=== PATIENT | female | born 1975 | race Caucasian/White ===

== ENCOUNTER → 2016-12-14 09:59 | Outpatient (CLI) | payer MEDICARE ==
[2015-08-15 06:59] VITALS: BMI 49.7
[~2016-12-14 09:59] MED LIST: CARDURA2 MG PO; CELEXA40 MG PO; CLORPRES PO; GLUCOPHAGE500 MG PO; HYDRALAZINE HCL50 MG PO; NEURONTIN 300300 MG PO; NORVASC10 MG PO; OXYCONTIN15 MG; TEKTURNA300 MG PO; ZANAFLEX4 MG PO
--- NOTE | 2016-12-14 14:43 | NUR ---
Nutrition education for bariatric surgery: S: Pt reports she only eats one meal a day; sometimes she does not eat anything during the day. Pt states she eats meat and potatoes with very little nonstarchy vegetables. Pt reports drinking two 12 ounce marina every day; states that she has cut way back on soda. Pt states she needs help with meal planning. Pt states she has been heavy her entire adult life. Pts highest weight was 300#. Pt lowest weight was 270#. Pt states she and her family do not eat out; that fast food is not a problem and she cooks most meals at home. Pt does not get any physical activity during the day. Pt reports she is drinking mostly water. Pts goal is to get HTN under better control and reduce the amount of medication she is on. O: 41 year old female PMH: severe HTN, DMT2, GERD Ht: 5'4" Ht: 280# IBW: 120# +/-10% BMI: 48.1 A: RDN feels pt is not being very truthful with diet recall due to pt not losing any weight. Pt is apparently eating more often or extremely large amounts of food than she is recalling. Pt may also be drinking a lot more soda than she realizes. Reviewed pre/post of diet; liquids between meals; 1/2 cup meal size; dumping syndrome; no straws or carbonated beverages; protein needs; daily supplements; stomach size; no sweets/high fat foods; no alcohol; pouch stretching; reviewed sample menus. Pt with good understanding of information provided; however, I feel pt is just telling me what she thinks I want to hear about her diet at this time. I expressed by concern to pt re: eating more than she is telling me. She does admit that she could be. I advised pt to start measuring and weighing her food; also to start eating at least 3 meals/day. I provided pt with a 5 day sample 1500 calorie a day meal plan to follow. RDN feels pt is not ready to make the necessary lifestyle changes for successful long-term weight loss with bariatric surgery at this time. P: Provided pt with printed pre/post op diet information and RDN name and phone number. RDN will be available if needed. Thank you for the consult.
== END | disposition home or self-care (01) ==
LOC: D.FANS 11-11 10:30
DX: E11.9 Type 2 diabetes mellitus without complications (principal); K21.9 Gastro-esophageal reflux disease without esophagitis; I10 Essential (primary) hypertension; E66.2 Morbid (severe) obesity with alveolar hypoventilation

== ENCOUNTER → 2016-12-29 09:27 | Outpatient (CLI) | payer MEDICARE ==
[2015-08-15 06:59] VITALS: BMI 49.7
[2016-12-29 10:25] LABS: HEMATOCRIT 39.8 % (36.0-48.0); HEMOGLOBIN 12.6 g/dL (12-16); LYMPHOCYTES 16.4 % (15-50); MCH 25.9 pg (26.0-34.0); MCHC 31.7 g/dL (31.0-37.0); MCV 81.9 fL (80.0-100.0); MEAN PLATELET VOLUME 9.4 fL (7.4-10.4); NEUTROPHILS 81.4 % (40-80); PLATELET COUNT 287 10x3/uL (130-400); RBC 4.86 10x6/uL (4.00-5.40); RDW 14.6 % (11.5-14.5); WBC 9.6 10x3/uL (4.8-10.8)
[2016-12-29 10:35] LABS: APTT 25.3 SECONDS (22.8-39.4); INR 0.98 (0.85-1.17); PROTIME 12.8 SECONDS (11.6-15.0)
[2016-12-29 10:51] LABS: ALBUMIN 3.6 g/dL (3.4-5.0); ALKALINE PHOSPHATASE 104 U/L (46-116); ALT (SGPT) 28 U/L (10-68); BILIRUBIN - DIRECT 0.07 mg/dL (0.00-0.30); BILIRUBIN - INDIRECT 0.33 mg/dL (0.00-1.00); CALC OSMOLALITY 276 mosm/kg (275-300); CARBON DIOXIDE 27.3 mmol/L (21.0-32.0); CHLORIDE - SERUM 100 mmol/L (98-107); CHOL - HDL RATIO 3.8 ratio (2.3-4.1); CHOLESTEROL, TOTAL 163 mg/dL (0-200); CREATININE - SERUM 0.7 mg/dL (0.6-1.3); GLUCOSE 177 mg/dL (74-106); HDL CHOLESTEROL 43 mg/dL (32-96); LDL CHOLESTEROL 66 mg/dL (0-100); LDL-HDL RATIO 1.5 ratio (1.5-3.5); POTASSIUM - SERUM 3.7 mmol/L (3.5-5.1); SODIUM 137 mmol/L (136-145); T4 THYROXINE 11.9 ug/dL (4.7-13.3); THYROID STIMULATING HORMONE 0.77 uIU/mL (0.36-3.74); TRIGLYCERIDE 273 mg/dL (30-200); UREA NITROGEN 9 mg/dL (7-18); eGFR NON AFRICAN AMERICAN > 90 mL/min (90-120)
[2016-12-29 11:11] LABS: HELICOBACTER PYLORI IGG POSITIVE (NEGATIVE)
[2016-12-30 09:18] LABS: FOLATE (FOLIC ACID) - SERUM 5.3 ng/mL (>3.0)
[2016-12-30 11:18] LABS: HELICOBACTER PYLORI IGM AB 6.3 units (0.0-8.9)
== END | disposition home or self-care (01) ==
LOC: D.RAD 09:27
PROVIDERS: Surgery
DX: K21.9 Gastro-esophageal reflux disease without esophagitis (principal); E66.2 Morbid (severe) obesity with alveolar hypoventilation

== ENCOUNTER → 2017-01-11 09:39 | Outpatient (CLI) | payer MEDICARE, BC ==
[2015-08-15 06:59] VITALS: BMI 49.7
== END | disposition home or self-care (01) ==
LOC: D.RT 09:39
DX: R06.09 Other forms of dyspnea (principal); J44.9 Chronic obstructive pulmonary disease, unspecified

== ENCOUNTER 2017-01-18 08:17 | Day surgery (SDC) | payer MEDICARE ==
[~2017-01-18] VITALS: Ht 160 cm; Wt 125.5 kg
[~2017-01-18 08:17] MED LIST changes: -OXYCONTIN15 MG; +OXYCONTIN15 MG PO
[2017-01-18] MEDS ORDERED: REQUIP0.5 MG PO (09:41)
[2017-01-18] MEDS ORDERED: PREVACID30 MG PO (09:41)
[2017-01-18 09:45] VITALS: BP 188/118; Ht 160 cm; Wt 125.5 kg
[2017-01-18 10:13] LABS: BASOPHILS 0.1 % (0-2); EOSINOPHILS 0 % (0-7); HEMATOCRIT 38.5 % (36.0-48.0); HEMOGLOBIN 12.1 g/dL (12-16); IMMATURE GRANULOCYTES 0.3 % (0-5); LYMPHOCYTES 21.3 % (15-50); MCH 26.4 pg (26.0-34.0); MCHC 31.4 g/dL (31.0-37.0); MCV 83.9 fL (80.0-100.0); MEAN PLATELET VOLUME 10.5 fL (7.4-10.4); MONOCYTES 4.3 % (2-11); PLATELET COUNT 292 10x3/uL (130-400); RBC 4.59 10x6/uL (4.00-5.40); RDW 14.8 % (11.5-14.5); WBC 7.7 10x3/uL (4.8-10.8)
[2017-01-18 10:29] LABS: CALC OSMOLALITY 281 mosm/kg (275-300); CALCIUM 9.5 mg/dL (8.5-10.1); CHLORIDE - SERUM 100 mmol/L (98-107); CREATININE - SERUM 0.8 mg/dL (0.6-1.3); GLUCOSE 180 mg/dL (74-106); POTASSIUM - SERUM 4.3 mmol/L (3.5-5.1); SODIUM 138 mmol/L (136-145); UREA NITROGEN 14 mg/dL (7-18); eGFR NON AFRICAN AMERICAN 84 mL/min (90-120)
[2017-01-18 12:52] LABS: HCG SERUM NEGATIVE (NEGATIVE)
--- NOTE | 2017-01-18 13:14 | NUR ---
1314--IV DC'D, PT UP TO DRESS AT THIS TIME. GUERLINE RN
--- NOTE | 2017-01-18 13:24 | NUR ---
1325--DISCHARGE INSTRUCTIONS GIVEN, PT VERBALIZES UNDERSTANDING. PT OFF UNIT VIA SHANE. GUERLINE MONTGOMERY
--- NOTE | 2017-01-19 07:23 | OP ---
PATIENT NAME: RAFAEL PETTY MEDICAL RECORD: [id number] :75 LOCATION:D.OPS ADMISSION DATE: SURGEON: COLLEEN STEELE MD DATE OF OPERATION: 01/18/2017 SURGEON: Colleen Steele MD. PREOPERATIVE DIAGNOSES: 1. Morbid obesity. 2. Morbid obesity with alveolar hypoventilation. 3. Chronic obstructive pulmonary disease. 4. Refractory hypertension. 5. Diabetes. POSTOPERATIVE DIAGNOSES: 1. Morbid obesity. 2. Morbid obesity with alveolar hypoventilation. 3. Chronic obstructive pulmonary disease. 4. Refractory hypertension. 5. Diabetes. PROCEDURES PERFORMED: Esophagogastroduodenoscopy. ANESTHESIA: Total intravenous anesthesia. COMPLICATIONS: None. SPECIMENS: 1. Duodenum. 2. Antrum. 3. Stomach. 4. GE junction. Case was contaminated. ESTIMATED BLOOD LOSS: Minimal. OPERATIVE COURSE: After consent was obtained, the patient was taken to the endoscopy suite. Total intravenous anesthesia was given. Timeout was taken to confirm the correct patient and procedure. A bite block was placed. Hurricaine [place] was administered. The patient was placed in the left lateral decubitus position. The scope was inserted through the biteblock. Under direct endoscopic vision, it was passed through the oropharynx and into the esophagus. It was advanced under direct vision to the esophagus and the stomach. The stomach was insufflated. The scope was passed through the pylorus. The duodenum was inspected. Duodenal biopsies were taken. The scope was withdrawn to the antrum. There was mild antritis. Multiple antral biopsies were taken. Stomach body was biopsied. There was some mild gastritis noted. The scope was retroflexed. There was a moderate-sized hiatal hernia. The stomach was desufflated. The scope was placed into GE junction. There were abnormalities at the Z line noted consistent with reflux-type injury as well as again noted a hiatal hernia. Multiple GE junction biopsies were taken. The scope was then withdrawn to the esophagus. There were no esophageal abnormalities identified. The scope was removed. At the end of the procedure, all needle and instrument counts were correct. No complications occurred. The patient tolerated the OPERATIVE REPORT [id number] RAFAEL PETTY procedure well. She was transferred to recovery room in satisfactory condition. TRANSINT:[id number] Voice Confirmation ID: [id number] DOCUMENT ID: [id number] COLLEEN STEELE MD at 0723 CC: [id number] DICTATION DATE: 01/18/17 1159 ICE CREAM VAN VENDOR: 01/18/172042 [facility] 01/18/17 [id number] [place] [address]
== END 2017-01-18 13:25 | disposition home or self-care (01) ==
LOC: D.OPS 08:17
PROVIDERS: Anesthesiology
DX: E66.2 Morbid (severe) obesity with alveolar hypoventilation (principal); J44.9 Chronic obstructive pulmonary disease, unspecified; R06.02 Shortness of breath; I10 Essential (primary) hypertension; E11.9 Type 2 diabetes mellitus without complications; G47.33 Obstructive sleep apnea (adult) (pediatric); I25.10 Atherosclerotic heart disease of native coronary artery without angina pectoris; K21.9 Gastro-esophageal reflux disease without esophagitis; Z01.812 Encounter for preprocedural laboratory examination; Z68.42 Body mass index [BMI] 45.0-49.9, adult

== ENCOUNTER 2017-03-22 05:30 | Inpatient (IN) | payer MEDICARE ==
[2017-03-19 13:08] LABS: HEMATOCRIT 38.7 % (36.0-48.0); HEMOGLOBIN 12.2 g/dL (12-16); MCH 26.6 pg (26.0-34.0); MCHC 31.5 g/dL (31.0-37.0); MCV 84.3 fL (80.0-100.0); MEAN PLATELET VOLUME 9.6 fL (7.4-10.4); RBC 4.59 10x6/uL (4.00-5.40); RDW 14.3 % (11.5-14.5); WBC 7.8 10x3/uL (4.8-10.8)
[2017-03-19 13:18] LABS: ANION GAP 14.9 mmol/L (8-16); CALCIUM 8.7 mg/dL (8.5-10.1); CARBON DIOXIDE 25.1 mmol/L (21.0-32.0); CREATININE - SERUM 1.4 mg/dL (0.6-1.3)
[~2017-03-22] VITALS: Ht 162.6 cm; Wt 126.4 kg
[~2017-03-22 05:30] MED LIST changes: +PERCOCET 10/3251 TA1 PO; +PREVACID30 MG PO; +REQUIP0.5 MG PO
[2017-03-22 05:53] VITALS: BP 182/105; BMI 47.8
[2017-03-22 06:19] LABS: HCG URINE NEGATIVE (NEGATIVE)
[2017-03-22 11:51] VITALS: BP 169/106
[2017-03-22 12:00] VITALS: BP 169/106; Ht 162.6 cm; Wt 126.4 kg
--- NOTE | 2017-03-22 12:13 | NUR ---
PT AOX4 RESP EVEN AND NONLABORED PT DENIES NEED AT THIS TIME IV TO RIGHT FOREARM PATENT AND INTACT AT THIS TIME SRX2 BED AT LOWEST SETTING CALLL LIGHT WITHIN REACH WILL CONTINUE TO MONITOR
[2017-03-22 15:46] VITALS: BP 196/108
--- NOTE | 2017-03-22 19:00 | NUR ---
PATIENT RESTING WITH EYES CLOSED. HOB ALL THE WAY UP. BED IN LOWEST POSITION, CALL LIGHT IN REACH. BED RAILS UP X'S 2. AT BEDSIDE.
[2017-03-22 20:00] VITALS: BP 169/109
--- NOTE | 2017-03-22 21:00 | NUR ---
PATIENT AMBULATED AROUND NURSE STATION ONE LAP.
--- NOTE | 2017-03-22 22:57 | NUR ---
PATIENT CRYING IN PAIN. PATIENT HAS MANUFACTURING PLANT CONTROLLER MORPHINE, KEEPS GETTING MAXED OUT ON THE LIMIT. ENCOURAGED PATIENT TO WALK, PATIENT STATED SHE DOES NOT WANT TO BECAUSE THE PAIN IS TOO BAD. PATIENT STATED SHE IS HOT, BROUGHT PATIENT A FAN. GAVE PATIENT AN ICE PACK TO HOLD ON HER EPIGASTRIC AREA WHERE SHE VERBALIZING PAIN.
--- NOTE | 2017-03-22 23:00 | NUR ---
NO MYLICON DROPS AVAILABLE ON UNIT. CALLED TIA POULTRY HATCHERY LABORER, SHE SAID SHE WILL GET THEM FROM PHARMACY. OFFERED PATIENT TO WALK AGAIN, PATIENT AGAIN REFUSED STATED "IT HURTS TOO BAD." EXPLAINED TO PATIENT AGAIN THAT WALKING HELPS WITH GAS PAIN. PATIENT STILL REFUSED. PATIENT STATED "IT FEELS LIKE I NEED TO BELCH BUT I CANNOT GET IT OUT." PATIENT IS SITTING UP IN THE CHAIR.
[2017-03-23] VITALS: BP 159/98
--- NOTE | 2017-03-23 03:00 | NUR ---
PATIENT IS AMBULATING IN THE TEMPLE WITH HER .
--- NOTE | 2017-03-23 03:53 | NUR ---
PATIENT IS SITTING UP IN CHAIR RESTING QUIETLY WITH EYES CLOSED.
[2017-03-23 04:00] VITALS: BP 181/104
[2017-03-23 05:56] LABS: BASOPHILS 0.1 % (0-2); EOSINOPHILS 0 % (0-7); HEMATOCRIT 34.3 % (36.0-48.0); HEMOGLOBIN 10.5 g/dL (12-16); IMMATURE GRANULOCYTES 0.1 % (0-5); MCH 26.3 pg (26.0-34.0); MCHC 30.6 g/dL (31.0-37.0); MEAN PLATELET VOLUME 9.3 fL (7.4-10.4); MONOCYTES 6.2 % (2-11); NEUTROPHILS 69.6 % (40-80); PLATELET COUNT 303 10x3/uL (130-400); RBC 3.99 10x6/uL (4.00-5.40); RDW 14.6 % (11.5-14.5); WBC 8.2 10x3/uL (4.8-10.8)
[2017-03-23 06:10] LABS: ANION GAP 12.1 mmol/L (8-16); CALCIUM 8.3 mg/dL (8.5-10.1); CREATININE - SERUM 1.1 mg/dL (0.6-1.3); MAGNESIUM - SERUM 1.8 mg/dL (1.8-2.4); POTASSIUM - SERUM 4.1 mmol/L (3.5-5.1)
--- NOTE | 2017-03-23 07:40 | NUR ---
PT AOX4 RESP EVEN AND NONLABORED PT DENIES NEEDS AT THIS TIME IV TO RIGHT WRIST PATENT AND INTACT AT THIS TIME SRX2 BED AT LOWEST SETTINGS THIS TIME CALL LIGHT WITHIN REACH WILL CONTINUE TO MONITOR
--- NOTE | 2017-03-23 10:42 | NUR ---
Patient Name: RAFAEL PETTY Admission Status: Elective Accout number: [id number] Admission Date: 03-22-2017 : 1975 Admission Diagnosis:MORBID (SEVERE) OBESITY DUE TO EXCESS CALORIES Attending: WHITNEY Current LOS: 1 Anticipated DC Date: 03-23-2017 Planned Disposition: Home Primary Insurance: MEDICARE A & B Discharge Planning Comments: CM MET WITH PATIENT AND SPOUSE (LATANYA) REGARDING D/C NEEDS AND PLANS. PATIENT STATED SPOUSE WILL DRIVE HER HOME AT DISCHARGE. PATIENT HAS 1 STEP TO ENTER HOME AT HER MOTHERS AND WILL GO THERE AT DISCHARGE. PATIENT IS INDEPENDENT WITH HER CARE AND HAS A WALKER, SHOWER CHAIR, CANE, AND GLUCOMETER AT HOME. PATIENTS PCP IS DR. ONEIL AND PHARMACY IS [facility] [place]. PATIENT STATED SHE DID NOT NEED HOME HEALTH. CM WILL CONTINUE TO FOLLOW PATIENT WITH D/C NEEDS AND PLANS. PCP DR. ONEIL [facility] [place]- [phone] LATANYA (SPOUSE) [phone] Analyst Competitive Intelligence: Morenita Kaur Is the patient Alert and Oriented? Yes 0 * How many steps to enter\exit or inside your home? 1 STEP 0 * PCP DR. ONEIL 0 * Pharmacy [facility] IN [place] 0 * Preadmission Environment Home with Family 0 * ADLs Independent 0 * Equipment Cane Glucometer Shower Chair Walker 0 * List name and contact numbers for known caregivers / representatives who currently or will assist patient after discharge: LATANYA (SPOUSE) [phone] 0 * Community resources currently utilized None 0 * Additional services required to return to the preadmission environment? Yes 0 * Can the patient safely return to the preadmission environment? Yes 0 * Has this patient been hospitalized within the prior 30 days at any hospital? No 0 Grand Total: 0
[2017-03-23 11:37] VITALS: BP 111/71
--- NOTE | 2017-03-23 12:25 | NUR ---
NUTRITION MONITORING & EVAL CHART REVIEWED, PT VISIT. PT STATES SHE HAS ALL NECESSARY DIET INFORMATION. HAS NO QUESTIONS AT THIS TIME. RD FOLLOWING
--- NOTE | 2017-03-23 19:30 | NUR ---
PATIENT IS IN BED, HOB ALL THE WAY UP. PATIENT IS SITTING AT A 90 DEGREE ANGLE. PATIENT IS RESTING WITH EYES CLOSED. NO SIGNS OF DISTRESS NOTED. IS AT BEDSIDE, HE DENIES NEEDS. BED IS IN LOWEST POSITION, CALL LIGHT IS IN REACH. BED RAILS UP X'S 2.
[2017-03-23 20:00] VITALS: BP 129/71
--- NOTE | 2017-03-23 20:30 | NUR ---
PATIENT IS AMBULATING IN THE TEMPLE WITH HER
[2017-03-24] VITALS: BP 133/70
[2017-03-24 04:00] VITALS: BP 142/68
[2017-03-24 05:15] LABS: BASOPHILS 0.1 % (0-2); EOSINOPHILS 0 % (0-7); HEMATOCRIT 30.7 % (36.0-48.0); HEMOGLOBIN 9.4 g/dL (12-16); IMMATURE GRANULOCYTES 0.3 % (0-5); LYMPHOCYTES 24.1 % (15-50); MCH 26.5 pg (26.0-34.0); MCHC 30.6 g/dL (31.0-37.0); MCV 86.5 fL (80.0-100.0); MEAN PLATELET VOLUME 9.6 fL (7.4-10.4); MONOCYTES 5.9 % (2-11); NEUTROPHILS 69.6 % (40-80); PLATELET COUNT 287 10x3/uL (130-400); RBC 3.55 10x6/uL (4.00-5.40); RDW 14.8 % (11.5-14.5); WBC 7.6 10x3/uL (4.8-10.8)
[2017-03-24 05:40] LABS: ANION GAP 12.2 mmol/L (8-16); CALCIUM 8.1 mg/dL (8.5-10.1); CARBON DIOXIDE 26.7 mmol/L (21.0-32.0); CREATININE - SERUM 0.9 mg/dL (0.6-1.3); MAGNESIUM - SERUM 1.8 mg/dL (1.8-2.4); POTASSIUM - SERUM 3.9 mmol/L (3.5-5.1)
--- NOTE | 2017-03-24 07:40 | NUR ---
PT AOX4 RESP EVEN AND NONLABORED PT DENIES NEEDS AT THIS TIME IV TO RIGHT WRIST PATENT AND INTACT AT THIS TIME SRX2 BED AT LOWEST SETTING CALL LIGHT WITHIN REACH WILL CONTINUE TO MONITOR
[2017-03-24 08:10] VITALS: BP 139/66
[2017-03-24] MEDS ORDERED: OXYCODONE HCL5 MG PO (08:19)
--- NOTE | 2017-03-24 08:27 | NUR ---
CM REASSESSMENT NOTE: PATIENT IS DISCHARGING HOME TODAY/ DRIVING HER. PATIENT REFUSED HOME HEALTH AND HAD NO OTHER NEEDS FOR DISCHARGE.
--- NOTE | 2017-03-24 09:27 | NUR ---
IV DISCONTINUED WITH CATHETER INTACT AT THIS TIME PT GIVEN DISCHARGE INSTRUCTIONS AND PRESCRIPTION AT THIS TIME
--- NOTE | 2017-03-24 10:01 | NUR ---
PT TAKEN VIA WHEELCHAIR VIA PRIVATE VEHICLE AT THIS TIME WITH DISCHARGE PAPERWORK AND PRESCRIPTION
== END 2017-03-24 10:03 | disposition home or self-care (01) | DRG 621 ==
LOC: D.MS 05:30 → D.SDCHOLD 05:30 → D.MS 11:43
PROVIDERS: Anesthesiology; ADMIT Surgery
PROC: 0BQR4ZZ (ICD-10-PCS; 2017-03-22)
PROC: 0DB64Z3 Excision of Stomach, Percutaneous Endoscopic Approach, Vertical (ICD-10-PCS; principal; 2017-03-22 07:30)
PROC: 0BQS4ZZ (ICD-10-PCS; 2017-03-22 07:30)
DX: E66.01 Morbid (severe) obesity due to excess calories (principal); Z68.42 Body mass index [BMI] 45.0-49.9, adult; I10 Essential (primary) hypertension; E11.9 Type 2 diabetes mellitus without complications; G47.30 Sleep apnea, unspecified; J44.9 Chronic obstructive pulmonary disease, unspecified; I25.10 Atherosclerotic heart disease of native coronary artery without angina pectoris; K21.9 Gastro-esophageal reflux disease without esophagitis

== ENCOUNTER → 2017-04-06 14:54 | Outpatient (CLI) | payer MEDICARE ==
[~2017-04-06] VITALS: Ht 162.6 cm; Wt 115.0 kg
[~2017-04-06 14:54] MED LIST changes: +OXYCODONE HCL5 MG PO; +PROAIR HFA8.5 GM INH; +ZOFRAN ODT4 MG/UDTAB PO
[2017-04-06 15:13] LABS: BASOPHILS 0.2 % (0-2); EOSINOPHILS 0 % (0-7); HEMATOCRIT 38.9 % (36.0-48.0); HEMOGLOBIN 12.6 g/dL (12-16); IMMATURE GRANULOCYTES 0.2 % (0-5); LYMPHOCYTES 35.2 % (15-50); MCH 26.8 pg (26.0-34.0); MCHC 32.4 g/dL (31.0-37.0); MCV 82.6 fL (80.0-100.0); MEAN PLATELET VOLUME 10.5 fL (7.4-10.4); MONOCYTES 5.7 % (2-11); NEUTROPHILS 58.7 % (40-80); RBC 4.71 10x6/uL (4.00-5.40); WBC 9.3 10x3/uL (4.8-10.8)
[2017-04-06 15:15] LABS: PLATELET COUNT 367 10x3/uL (130-400)
[2017-04-06 15:44] LABS: ALBUMIN 2.3 g/dL (3.4-5.0); CARBON DIOXIDE 11.7 mmol/L (21.0-32.0)
[2017-04-06 16:00] LABS: ANION GAP 30.3 mmol/L (8-16); BILIRUBIN - TOTAL 0.41 mg/dL (0.2-1.3); CALCIUM 9.2 mg/dL (8.5-10.1); CREATININE - SERUM 1.4 mg/dL (0.6-1.3); PROTEIN - SERUM 8.2 g/dL (6.4-8.2)
--- NOTE | 2017-04-06 16:00 | NUR ---
BLOOD PRESSURE 166/91, PULSE 88, RESPIRATIONS 18, TEMP 98.1
[2017-04-06 16:11] VITALS: BP 166/91; Ht 162.6 cm; Wt 115.0 kg
--- NOTE | 2017-04-06 16:58 | NUR ---
ORDER RECEIVED FROM DR STEELE TO GIVE PATIENT A TOTAL OF 2 LITERS NS IV
--- NOTE | 2017-04-06 17:00 | NUR ---
BP 128/79, PULSE 79, RR 18, O2 SAT 100%, RIGHT FOREARM PIV CONTINUES INFUSING NS BOLUS WITHOUT DIFFICULTY, PATIENT DENIES COMPLAINTS
--- NOTE | 2017-04-06 18:00 | NUR ---
BP 160/106, PULSE 88, RR 18, 02 SAT 99%
--- NOTE | 2017-04-06 19:06 | NUR ---
SECOND NS 1 LITER BAG FINISHED INFUSING. RIGHT FOREARM PIV DC'D WITH TIP INTACT. DISCHARGE INSTRUCTIONS GIVEN, PATIENT DISCHARGED HOME VIA WHEELCHAIR TO PRIVATE VEHICLE WITH FAMILY MEMBERS
== END | disposition home or self-care (01) ==
LOC: D.OPS 14:54
PROVIDERS: Surgery
DX: E86.0 Dehydration (principal)

== ENCOUNTER 2017-04-23 16:14 | Emergency (ER) | payer MEDICARE ==
[2017-04-06 16:11] VITALS: BMI 43.5
[2017-04-23 19:15] LABS: BASOPHILS 0.3 % (0-2); EOSINOPHILS 0.1 % (0-7); HEMATOCRIT 40.6 % (36.0-48.0); HEMOGLOBIN 13.2 g/dL (12-16); IMMATURE GRANULOCYTES 0.1 % (0-5); LYMPHOCYTES 33.8 % (15-50); MCH 26.7 pg (26.0-34.0); MCHC 32.5 g/dL (31.0-37.0); MEAN PLATELET VOLUME 10.3 fL (7.4-10.4); MONOCYTES 4.8 % (2-11); NEUTROPHILS 60.9 % (40-80); RBC 4.95 10x6/uL (4.00-5.40); RDW 14.4 % (11.5-14.5); WBC 7.5 10x3/uL (4.8-10.8)
[2017-04-23 19:19] LABS: PLATELET COUNT 285 10x3/uL (130-400)
[2017-04-23 19:32] LABS: ANION GAP 17.8 mmol/L (8-16); BILIRUBIN - TOTAL 0.4 mg/dL (0.2-1.3); CALCIUM 9.4 mg/dL (8.5-10.1); CREATININE - SERUM 1.1 mg/dL (0.6-1.3); POTASSIUM - SERUM 3.8 mmol/L (3.5-5.1); PROTEIN - SERUM 8.3 g/dL (6.4-8.2)
[2017-04-23 21:46] LABS: APPEARANCE HAZY (CLEAR); BILIRUBIN NEGATIVE (NEGATIVE); COLOR YELLOW (YELLOW); GLUCOSE NEGATIVE (NEGATIVE); KETONE LARGE mg/dL (NEGATIVE); LEUKOCYTE ESTERASE 1+ (NEGATIVE); NITRITE NEGATIVE (NEGATIVE); PROTEIN 1+ mg/dL (NEGATIVE); UROBILINOGEN NORMAL (NORMAL)
[2017-04-23 21:48] LABS: BACTERIA FEW /hpf (NONE SEEN); RED CELLS - URINE OCC /hpf (0-5)
[2017-04-23 21:50] LABS: EPITHELIAL CELLS 25-50 /hpf (0-5)
== END 2017-04-23 21:50 | disposition home or self-care (01) ==
LOC: D.ER 16:14
PROVIDERS: Physician Assistant Medical
DX: R11.10 Vomiting, unspecified (principal); R10.9 Unspecified abdominal pain

== ENCOUNTER 2017-04-28 05:04 | Day surgery (SDC) | payer MEDICARE ==
[~2017-04-28] VITALS: Ht 162.6 cm; Wt 110.0 kg
[2017-04-28 06:49] VITALS: BP 165/122; Ht 162.6 cm; Wt 110.0 kg
[2017-04-28 06:51] LABS: HEMATOCRIT 40.5 % (36.0-48.0); HEMOGLOBIN 13.1 g/dL (12-16); MCH 26.7 pg (26.0-34.0); MCHC 32.3 g/dL (31.0-37.0); MCV 82.7 fL (80.0-100.0); MEAN PLATELET VOLUME 10.9 fL (7.4-10.4); RBC 4.9 10x6/uL (4.00-5.40); RDW 14.7 % (11.5-14.5); WBC 7.3 10x3/uL (4.8-10.8)
[2017-04-28 07:36] LABS: ANION GAP 19.9 mmol/L (8-16); CALCIUM 9.6 mg/dL (8.5-10.1); CARBON DIOXIDE 20.7 mmol/L (21.0-32.0); CREATININE - SERUM 1.2 mg/dL (0.6-1.3); POTASSIUM - SERUM 3.6 mmol/L (3.5-5.1)
[2017-04-28 07:39] LABS: HCG URINE NEGATIVE (NEGATIVE)
--- NOTE | 2017-04-28 15:58 | OP ---
PATIENT NAME: RAFAEL PETTY MEDICAL RECORD: [id number] :75 LOCATION:D.OPS ADMISSION DATE: SURGEON: COLLEEN STEELE MD DATE OF OPERATION: 04/28/2017 SURGEON: Colleen Steele MD PREOPERATIVE DIAGNOSES: 1. Intractable vomiting and retching. 2. History sleeve gastrectomy. POSTOPERATIVE DIAGNOSES: 1. Intractable vomiting and retching. 2. History sleeve gastrectomy. 3. GE junction stricture. ANESTHESIA: Total intravenous anesthesia. SPECIMENS: None. PROCEDURE PERFORMED: EGD with balloon dilatation to 46.5-French____. COMPLICATIONS: None. OPERATIVE COURSE: After consent was obtained, the patient was taken to the endoscopy suite at which time, a timeout was taken to confirm the correct patient and procedure. A bite block was placed. Hurricaine [employer] was administered. Total intravenous anesthesia was administered. The patient was placed in left lateral decubitus position. The gastroscope was inserted through the biteblock. It was passed posterior to the epiglottis under direct endoscopic vision. It was advanced into the esophagus under direct endoscopic vision. There was some difficulty in passing the scope just past the GE junction. Once complete, the scope was advanced into the stomach. The sleeve appeared anatomical in appearance. There are no abnormalities. The stomach identified. The scope was advanced through the stomach. It was advanced to the pylorus into the first portion of duodenum. The pylorus appeared normal. Antrum appeared normal. Duodenum appeared normal. At this time, the scope was withdrawn into the stomach. The scope was withdrawn to the proximal stomach where the area of stricture was noted. A balloon dilator was passed through the working channel on the scope. The balloon was inflated to 40-Sri Lankan and then held in place for 3 minutes. The balloon was then inflated to 43-Sri Lankan, and held in place for 1 minute. The balloon was then inflated to 46-Sri Lankan and held in place for 1 minute. Next, the balloon was deflated and removed. The area of narrowing at this time was markedly improved. The scope was easily traversed across the area of stricture on multiple passes. At this time, the scope was withdrawn to the esophagus. There was no esophageal abnormalities identified. At this time, the scope was removed and the procedure was terminated. At the end of the case, all instrument counts were correct. No complications occurred. The patient was transferred to recovery room in satisfactory condition. TRANSINT:[id number] Voice Confirmation ID: [id number] DOCUMENT ID: [id number] OPERATIVE REPORT [id number] RAFAEL PETTY,COLLEEN Hummel MD at 1558 CC: [id number] DICTATION DATE: 04/28/17 0837 CO FOUNDER: 04/28/17 1105 [facility] 04/28/17 [place] [id number]
== END 2017-04-28 10:51 | disposition home or self-care (01) ==
LOC: D.OPS 05:04
PROVIDERS: Anesthesiology; Surgery
DX: K22.2 Esophageal obstruction (principal); Z98.84 Bariatric surgery status; Z01.812 Encounter for preprocedural laboratory examination

== ENCOUNTER 2017-04-28 13:56 | Emergency (ER) | payer MEDICARE ==
[2017-04-28 06:49] VITALS: BMI 41.6
== END 2017-04-28 16:49 | disposition home or self-care (01) ==
LOC: D.ER 13:56
DX: Z98.890 Other specified postprocedural states (principal); R07.89 Other chest pain; I10 Essential (primary) hypertension; J45.909 Unspecified asthma, uncomplicated; E11.9 Type 2 diabetes mellitus without complications; R11.2 Nausea with vomiting, unspecified

== ENCOUNTER → 2017-05-13 10:19 | Outpatient (CLI) | payer MEDICARE ==
[2017-04-28 06:49] VITALS: BMI 41.6
== END | disposition home or self-care (01) ==
LOC: D.RAD 10:00
DX: R13.10 Dysphagia, unspecified (principal); G43.A1 Cyclical vomiting, in migraine, intractable

== ENCOUNTER 2017-05-14 07:41 | Day surgery (SDC) | payer MEDICARE ==
[~2017-05-14] VITALS: Ht 162.6 cm; Wt 113.2 kg
[2017-05-14 08:22] LABS: BASOPHILS 0.2 % (0-2); EOSINOPHILS 0.1 % (0-7); HEMATOCRIT 44.2 % (36.0-48.0); HEMOGLOBIN 14.6 g/dL (12-16); IMMATURE GRANULOCYTES 0.2 % (0-5); LYMPHOCYTES 24.7 % (15-50); MCH 27.4 pg (26.0-34.0); MCV 83.1 fL (80.0-100.0); MEAN PLATELET VOLUME 11.1 fL (7.4-10.4); MONOCYTES 5.9 % (2-11); NEUTROPHILS 68.9 % (40-80); RBC 5.32 10x6/uL (4.00-5.40); RDW 15.4 % (11.5-14.5); WBC 10.5 10x3/uL (4.8-10.8)
[2017-05-14 08:23] LABS: PLATELET COUNT 321 10x3/uL (130-400)
[2017-05-14 08:30] LABS: ANION GAP 18.2 mmol/L (8-16); CALCIUM 9.7 mg/dL (8.5-10.1); CARBON DIOXIDE 23.3 mmol/L (21.0-32.0); CREATININE - SERUM 1.1 mg/dL (0.6-1.3); POTASSIUM - SERUM 3.5 mmol/L (3.5-5.1)
[2017-05-14 09:38] VITALS: BP 116/95; Ht 162.6 cm; Wt 113.2 kg
[2017-05-14 09:47] LABS: HCG URINE NEGATIVE (NEGATIVE)
--- NOTE | 2017-05-14 12:15 | NUR ---
DILATED ESOPHAGUS TO 18 GUAMANIAN.
--- NOTE | 2017-05-14 15:47 | NUR ---
1335 IV DC WITH CATHER TIP INTACT
--- NOTE | 2017-05-15 10:43 | OP ---
PATIENT NAME: RAFAEL PETTY MEDICAL RECORD: [id number] :75 LOCATION:D.[facility] ADMISSION DATE: SURGEON: COLLEEN STEELE MD DATE OF OPERATION: 05/14/2017 SURGEON: Colleen Steele MD PREOPERATIVE DIAGNOSES: 1. Dysphagia. 2. Intractable nausea and vomiting. 3. History of bariatric procedure. POSTOPERATIVE DIAGNOSES: 1. Dysphagia. 2. Intractable nausea and vomiting. 3. History of bariatric procedure. PROCEDURE PERFORMED: Esophagogastroduodenoscopy with balloon dilatation to 54-Lao. ANESTHESIA: Total intravenous anesthesia. COMPLICATIONS: None. SPECIMENS: None. ESTIMATED BLOOD LOSS: Minimal. Case was contaminated. OPERATIVE COURSE: After consent was obtained, the patient was taken to the operating room and placed in the supine position on the operating table. Next, a timeout was taken to confirm correct patient, procedure, total intravenous anesthesia was given. A bite block was placed tourniquet was administered. The patient was placed in left lateral decubitus position. At this time, the endoscope was passed through the oropharynx and under direct endoscopic vision, it was advanced through the esophagus through the gastroesophageal junction and into the stomach and was advanced at the stomach. The pylorus was intubated. The duodenum was inspected. The pylorus was then dilated to 54-Lao and held in place for 2 minutes. The balloon was deflated. The balloon was reinflated and the balloon was then repositioned to the upper portion of the stomach. Again, the balloon was inflated to 54-Lao, and held in place for 2 minutes. The balloon was then deflated. It was repositioned across the GE junction and was inflated to 54-Lao and held in place for 2 minutes. Next, the balloon was then removed through the working channel on the scope. The scope was then again advanced across the GE junction into the stomach. There was no strictured area or stricture noted. There was no area of bleeding noted. The scope was advanced to the pylorus. At this time, the duodenum was desufflated and the scope was slowly withdrawn and the stomach was desufflated. The esophagus was evaluated. There was no evidence of esophageal injury. There is no esophageal masses. At this time, the esophagus was desufflated. The scope was removed and the procedure was terminated. At the end of the case, all needle and instrument counts were correct. No complications occurred. The patient was returned to recovery room in satisfactory condition. OPERATIVE REPORT [id number] RAFAEL PETTY MARICEL TRANSINT:[id number] Voice Confirmation ID: [id number] DOCUMENT ID: [id number] COLLEEN STEELE MD at 1043 CC: [id number] DICTATION DATE: 05/14/17 1236 CIVIL ENGINEER: 05/14/17 1543 [facility] 05/14/17 [place] [id number]
== END 2017-05-14 14:05 | disposition home or self-care (01) ==
LOC: D.OPS 07:41
PROVIDERS: Anesthesiology; Surgery
DX: R13.10 Dysphagia, unspecified (principal); J45.909 Unspecified asthma, uncomplicated; I10 Essential (primary) hypertension; E11.9 Type 2 diabetes mellitus without complications; R11.2 Nausea with vomiting, unspecified; K21.9 Gastro-esophageal reflux disease without esophagitis; E66.01 Morbid (severe) obesity due to excess calories; Z68.41 Body mass index [BMI] 40.0-44.9, adult; Z01.812 Encounter for preprocedural laboratory examination

== ENCOUNTER 2017-05-18 10:53 | Inpatient (IN) | payer MEDICARE ==
[~2017-05-18] VITALS: Ht 162.6 cm; Wt 102.5 kg
[2017-05-18 11:45] LABS: ALBUMIN 3.7 g/dL (3.4-5.0); ANION GAP 18.1 mmol/L (8-16); BILIRUBIN - TOTAL 0.45 mg/dL (0.2-1.3); CALCIUM 9.2 mg/dL (8.5-10.1); CARBON DIOXIDE 23.7 mmol/L (21.0-32.0); CREATININE - SERUM 0.9 mg/dL (0.6-1.3); POTASSIUM - SERUM 3.8 mmol/L (3.5-5.1); PROTEIN - SERUM 7.8 g/dL (6.4-8.2)
[2017-05-18 11:46] LABS: BASOPHILS 0.4 % (0-2); EOSINOPHILS 0.1 % (0-7); HEMATOCRIT 41.5 % (36.0-48.0); HEMOGLOBIN 13.7 g/dL (12-16); IMMATURE GRANULOCYTES 0.1 % (0-5); LYMPHOCYTES 26.4 % (15-50); MCH 27.1 pg (26.0-34.0); MCV 82.2 fL (80.0-100.0); MEAN PLATELET VOLUME 11.2 fL (7.4-10.4); MONOCYTES 5.1 % (2-11); NEUTROPHILS 67.9 % (40-80); PLATELET COUNT 284 10x3/uL (130-400); RBC 5.05 10x6/uL (4.00-5.40); RDW 15.4 % (11.5-14.5)
[2017-05-18 16:08] VITALS: BP 162/110; BMI 38.9
[2017-05-18 20:00] VITALS: BP 137/92
[2017-05-18 20:33] VITALS: BP 162/110
[2017-05-19] VITALS (7 sets, daily range): BP systolic 140–173; BP diastolic 83–110; Ht 162.6 cm; Wt 102.5 kg
[2017-05-19 06:34] LABS: ANION GAP 16.6 mmol/L (8-16); CALCIUM 9.3 mg/dL (8.5-10.1); CARBON DIOXIDE 25.1 mmol/L (21.0-32.0); CREATININE - SERUM 0.9 mg/dL (0.6-1.3); POTASSIUM - SERUM 3.7 mmol/L (3.5-5.1)
[2017-05-19 17:11] LABS: APPEARANCE HAZY (CLEAR); BILIRUBIN NEGATIVE (NEGATIVE); COLOR DK YELLOW (YELLOW); GLUCOSE NEGATIVE (NEGATIVE); KETONE MODERATE mg/dL (NEGATIVE); LEUKOCYTE ESTERASE 1+ (NEGATIVE); NITRITE NEGATIVE (NEGATIVE); PROTEIN TRACE mg/dL (NEGATIVE); UROBILINOGEN NORMAL (NORMAL)
[2017-05-19 17:12] LABS: BACTERIA MODERATE /hpf (NONE SEEN); EPITHELIAL CELLS 0-5 /hpf (0-5); RED CELLS - URINE 0-5 /hpf (0-5)
[2017-05-20 02:34] VITALS: BP 161/98
[2017-05-20 06:09] LABS: CALC OSMOLALITY 284 mosm/kg (275-300); CALCIUM 9.2 mg/dL (8.5-10.1); CARBON DIOXIDE 26.2 mmol/L (21.0-32.0); CHLORIDE - SERUM 106 mmol/L (98-107); CREATININE - SERUM 0.8 mg/dL (0.6-1.3); GLUCOSE 132 mg/dL (74-106); POTASSIUM - SERUM 3.4 mmol/L (3.5-5.1); SODIUM 142 mmol/L (136-145); eGFR NON AFRICAN AMERICAN 83 mL/min (90-120)
[2017-05-20 06:15] LABS: UREA NITROGEN 12 mg/dL (7-18)
[2017-05-20 09:39] VITALS: BP 141/88
[2017-05-20 12:57] VITALS: BP 141/86
[2017-05-20 16:30] VITALS: BP 129/79
[2017-05-20 20:00] VITALS: BP 177/102
[2017-05-21] VITALS: BP 135/85
[2017-05-21 04:00] VITALS: BP 142/82
[2017-05-21 06:43] LABS: CALC OSMOLALITY 275 mosm/kg (275-300); CALCIUM 8.9 mg/dL (8.5-10.1); CARBON DIOXIDE 29.2 mmol/L (21.0-32.0); CHLORIDE - SERUM 105 mmol/L (98-107); CREATININE - SERUM 0.7 mg/dL (0.6-1.3); GLUCOSE 101 mg/dL (74-106); POTASSIUM - SERUM 3.5 mmol/L (3.5-5.1); SODIUM 139 mmol/L (136-145); eGFR NON AFRICAN AMERICAN > 90 mL/min (90-120)
[2017-05-21 06:47] LABS: UREA NITROGEN 6 mg/dL (7-18)
[2017-05-21] MEDS ORDERED: BACLOFEN10 MG PO (08:01)
[2017-05-21] MEDS ORDERED: PROTONIX40 MG PO (08:04)
[2017-05-21] MEDS ORDERED: PEPCID40 MG PO (08:05)
[2017-05-21] MEDS ORDERED: GAVISCON LIQUI355 ML PO (08:05)
[2017-05-21 09:31] VITALS: BP 144/91
== END 2017-05-21 10:56 | disposition home or self-care (01) | DRG 392 ==
LOC: D.ER 10:53 → D.MS 15:39
PROVIDERS: Family Medicine; ADMIT Surgery
PROC: 02HV33Z Insertion of Infusion Device into Superior Vena Cava, Percutaneous Approach (ICD-10-PCS; principal; 2017-05-19)
PROC: B548ZZA Ultrasonography of Superior Vena Cava, Guidance (ICD-10-PCS; 2017-05-19)
DX: K21.9 Gastro-esophageal reflux disease without esophagitis (principal); E11.9 Type 2 diabetes mellitus without complications; I10 Essential (primary) hypertension; J44.9 Chronic obstructive pulmonary disease, unspecified; E66.01 Morbid (severe) obesity due to excess calories; Z68.38 Body mass index [BMI] 38.0-38.9, adult; Z98.84 Bariatric surgery status

== ENCOUNTER 2017-05-24 14:44 | Emergency (ER) | payer MEDICARE ==
[2017-05-19 14:57] VITALS: BMI 38.8
[~2017-05-24 14:44] MED LIST changes: +BACLOFEN10 MG PO; +GAVISCON LIQUI355 ML PO; +PEPCID40 MG PO; +PROTONIX40 MG PO
[2017-05-24 15:53] LABS: ALBUMIN 3.9 g/dL (3.4-5.0); ANION GAP 17.1 mmol/L (8-16); BILIRUBIN - TOTAL 0.7 mg/dL (0.2-1.3); CALCIUM 9.3 mg/dL (8.5-10.1); CARBON DIOXIDE 25.3 mmol/L (21.0-32.0); CREATININE - SERUM 1.2 mg/dL (0.6-1.3); POTASSIUM - SERUM 4.4 mmol/L (3.5-5.1); PROTEIN - SERUM 7.1 g/dL (6.4-8.2)
[2017-05-24 17:12] LABS: BASOPHILS 0.1 % (0-2); EOSINOPHILS 0.1 % (0-7); HEMATOCRIT 39.3 % (36.0-48.0); HEMOGLOBIN 12.9 g/dL (12-16); IMMATURE GRANULOCYTES 0.3 % (0-5); LYMPHOCYTES 29.7 % (15-50); MCHC 32.8 g/dL (31.0-37.0); MCV 82.4 fL (80.0-100.0); MEAN PLATELET VOLUME 11.8 fL (7.4-10.4); MONOCYTES 7.4 % (2-11); NEUTROPHILS 62.4 % (40-80); PLATELET COUNT 283 10x3/uL (130-400); RBC 4.77 10x6/uL (4.00-5.40); RDW 15.5 % (11.5-14.5); WBC 7.5 10x3/uL (4.8-10.8)
[2017-05-24 17:40] LABS: APPEARANCE CLEAR (CLEAR); COLOR DK YELLOW (YELLOW); GLUCOSE NEGATIVE (NEGATIVE); LEUKOCYTE ESTERASE 1+ (NEGATIVE); NITRITE NEGATIVE (NEGATIVE); PROTEIN NEGATIVE (NEGATIVE)
[2017-05-24 17:41] LABS: BILIRUBIN NEGATIVE (NEGATIVE); KETONE LARGE mg/dL (NEGATIVE); UROBILINOGEN NORMAL (NORMAL)
[2017-05-24 17:42] LABS: BACTERIA FEW /hpf (NONE SEEN); RED CELLS - URINE RARE /hpf (0-5)
== END 2017-05-24 18:12 | disposition home or self-care (01) ==
LOC: D.ER 14:44
PROVIDERS: Nurse Practitioner Family
DX: K29.00 Acute gastritis without bleeding (principal); R11.10 Vomiting, unspecified; I10 Essential (primary) hypertension; E11.9 Type 2 diabetes mellitus without complications

== ENCOUNTER 2017-06-15 17:56 | Emergency (ER) | payer MEDICARE ==
[2017-05-19 14:57] VITALS: BMI 38.8
[2017-06-15 21:12] LABS: BASOPHILS 0.2 % (0-2); EOSINOPHILS 0.1 % (0-7); HEMATOCRIT 43.1 % (36.0-48.0); HEMOGLOBIN 14.4 g/dL (12-16); IMMATURE GRANULOCYTES 0.3 % (0-5); LYMPHOCYTES 35.9 % (15-50); MCH 27.1 pg (26.0-34.0); MCHC 33.4 g/dL (31.0-37.0); MCV 81.2 fL (80.0-100.0); MEAN PLATELET VOLUME 11.5 fL (7.4-10.4); MONOCYTES 7.1 % (2-11); NEUTROPHILS 56.4 % (40-80); PLATELET COUNT 244 10x3/uL (130-400); RBC 5.31 10x6/uL (4.00-5.40); RDW 15.7 % (11.5-14.5); WBC 9.4 10x3/uL (4.8-10.8)
[2017-06-15 21:27] LABS: ALBUMIN 4.3 g/dL (3.4-5.0); ANION GAP 14.7 mmol/L (8-16); BILIRUBIN - TOTAL 0.5 mg/dL (0.2-1.3); CALCIUM 9.8 mg/dL (8.5-10.1); CREATININE - SERUM 1.3 mg/dL (0.6-1.3); POTASSIUM - SERUM 3.7 mmol/L (3.5-5.1); PROTEIN - SERUM 7.6 g/dL (6.4-8.2); TROPONIN-I 0.037 ng/mL (0.000-0.060)
[2017-06-15 22:56] LABS: APPEARANCE HAZY (CLEAR); BILIRUBIN NEGATIVE (NEGATIVE); COLOR DK YELLOW (YELLOW); GLUCOSE NEGATIVE (NEGATIVE); KETONE NEGATIVE (NEGATIVE); NITRITE NEGATIVE (NEGATIVE); PROTEIN TRACE mg/dL (NEGATIVE); UROBILINOGEN NORMAL (NORMAL)
[2017-06-15 22:57] LABS: BACTERIA MANY /hpf (NONE SEEN); RED CELLS - URINE 0-5 /hpf (0-5); WHITE CELLS - URINE >50 /hpf (0-5)
== END 2017-06-15 23:54 | disposition home or self-care (01) ==
LOC: D.ER 17:56
PROVIDERS: Physician Assistant Medical
DX: N39.0 Urinary tract infection, site not specified (principal); R10.9 Unspecified abdominal pain; I10 Essential (primary) hypertension; E11.9 Type 2 diabetes mellitus without complications

== ENCOUNTER 2017-06-16 16:31 | Emergency (ER) | payer MEDICARE ==
[2017-05-19 14:57] VITALS: BMI 38.8
[2017-06-16 16:53] LABS: BASOPHILS 0.2 % (0-2); EOSINOPHILS 0.1 % (0-7); HEMATOCRIT 39.1 % (36.0-48.0); IMMATURE GRANULOCYTES 0.3 % (0-5); LYMPHOCYTES 27.8 % (15-50); MCH 27.1 pg (26.0-34.0); MCHC 33.2 g/dL (31.0-37.0); MCV 81.6 fL (80.0-100.0); MEAN PLATELET VOLUME 11.3 fL (7.4-10.4); MONOCYTES 7.2 % (2-11); NEUTROPHILS 64.4 % (40-80); PLATELET COUNT 251 10x3/uL (130-400); RBC 4.79 10x6/uL (4.00-5.40); RDW 15.9 % (11.5-14.5); WBC 9.3 10x3/uL (4.8-10.8)
[2017-06-16 17:20] LABS: ALBUMIN 3.9 g/dL (3.4-5.0); ANION GAP 18.6 mmol/L (8-16); BILIRUBIN - TOTAL 0.3 mg/dL (0.2-1.3); CALCIUM 9.3 mg/dL (8.5-10.1); CARBON DIOXIDE 19.5 mmol/L (21.0-32.0); CREATININE - SERUM 1.6 mg/dL (0.6-1.3); PROTEIN - SERUM 7.2 g/dL (6.4-8.2)
[2017-06-16 17:23] LABS: POTASSIUM - SERUM 3.1 mmol/L (3.5-5.1)
== END 2017-06-16 21:23 | disposition home or self-care (01) ==
LOC: D.ER 16:31
PROVIDERS: Emergency Medicine
DX: R55 Syncope and collapse (principal); E86.0 Dehydration; R00.0 Tachycardia, unspecified

== ENCOUNTER → 2017-06-18 15:35 | Outpatient (CLI) | payer MEDICARE ==
[2017-05-19 14:57] VITALS: BMI 38.8
[~2017-06-18 15:35] MED LIST changes: +FLORAJEN3 CAPS460 MG PO; +GLUCAGEN1 MG/VIAL IM; +GLUCAGEN1 MG/VIAL SC; +HUMALOG 30100 UNITS/ SC; +HYDROCODON-ACE1 EAC7 PO; +LOVENOX30 MG/0.3 SC; +MULTI-DAY VITAM1 TAB PO; +OXYCODONE HCL10 MG PO; +PHENERGAN25 MG/ML IM; +ROCEPHIN 1 GM/D51 G1 IV; +SOLU-CORTE100 MG/22 IV; +TEKTURNA150 MG PO; +ULTRAM50 MG PO
== END | disposition home or self-care (01) ==
LOC: D.MRI 15:35
DX: R51 Headache (principal); H53.9 Unspecified visual disturbance

== ENCOUNTER 2017-06-21 13:53 | Inpatient (IN) | payer MEDICARE ==
[~2017-06-21 13:53] MED LIST changes: -FLORAJEN3 CAPS460 MG PO; -GLUCAGEN1 MG/VIAL IM; -GLUCAGEN1 MG/VIAL SC; -HUMALOG 30100 UNITS/ SC; -HYDROCODON-ACE1 EAC7 PO; -LOVENOX30 MG/0.3 SC; -MULTI-DAY VITAM1 TAB PO; -OXYCODONE HCL10 MG PO; -PHENERGAN25 MG/ML IM; -ROCEPHIN 1 GM/D51 G1 IV; -SOLU-CORTE100 MG/22 IV; -TEKTURNA150 MG PO; -ULTRAM50 MG PO
--- NOTE | 2017-06-21 14:00 | NUR ---
PT ARRIVED TO FLOOR WITH HOSPITAL STAFF.
[2017-06-21 14:17] VITALS: BP 200/125; BMI 35.4
--- NOTE | 2017-06-21 14:30 | NUR ---
ADMISSION ASSESSMENT COMPLETE AT THIS TIME.
[2017-06-21 14:59] LABS: BASOPHILS 0.3 % (0-2); EOSINOPHILS 0.1 % (0-7); HEMATOCRIT 38.3 % (36.0-48.0); HEMOGLOBIN 12.8 g/dL (12-16); IMMATURE GRANULOCYTES 0.3 % (0-5); LYMPHOCYTES 17.6 % (15-50); MCH 27.2 pg (26.0-34.0); MCHC 33.4 g/dL (31.0-37.0); MCV 81.5 fL (80.0-100.0); MEAN PLATELET VOLUME 10.9 fL (7.4-10.4); MONOCYTES 3.9 % (2-11); NEUTROPHILS 77.8 % (40-80); PLATELET COUNT 273 10x3/uL (130-400); RDW 16.3 % (11.5-14.5)
[2017-06-21 15:35] LABS: ALBUMIN 3.8 g/dL (3.4-5.0); ANION GAP 19.6 mmol/L (8-16); BILIRUBIN - TOTAL 0.43 mg/dL (0.2-1.3); CALCIUM 9.5 mg/dL (8.5-10.1); CARBON DIOXIDE 19.8 mmol/L (21.0-32.0); CREATININE - SERUM 1.5 mg/dL (0.6-1.3); MAGNESIUM - SERUM 1.8 mg/dL (1.8-2.4); POTASSIUM - SERUM 3.4 mmol/L (3.5-5.1); PROTEIN - SERUM 7.3 g/dL (6.4-8.2); THYROID STIMULATING HORMONE 0.82 uIU/mL (0.36-3.74)
[2017-06-21 17:31] VITALS: BP 164/118
[2017-06-21 20:00] VITALS: BP 165/103
--- NOTE | 2017-06-21 20:00 | NUR ---
ASSESSMENT PER FLOWSHEET. NEURO ASSESSMENT DONE SHOWS BILATERAL WEAKNESS. KIMBALL EQUAL IN STRENGTH. SPEECH CLEAR AND APPROPRIATE. IV PATENT LEFT HAND OF NS BOLUS GOING AT 999CC'S/HR.
--- NOTE | 2017-06-21 20:15 | NUR ---
BOLUS COMPLETED D5NS HUNG TO PRESENT IV SITE INFUSING AT 125CC'S/HR.
--- NOTE | 2017-06-21 21:30 | NUR ---
MEDS GIVEN PER MAR. APFL=133 NO COVERAGE NEEDED.
--- NOTE | 2017-06-21 22:00 | NUR ---
DR. STEELE HERE ORDERS REC'D. 1000CC'SLR HUNG A BOLUS INFUSING AT 999CC'S/HR. UP WITH HELP TO BR VOIDS ON COMMODE. ASSISTED BACK TO BED SR UP X2 CALL LIGHT WITHIN REACH.
[2017-06-22] VITALS: BP 174/105
--- NOTE | 2017-06-22 | NUR ---
EYES CLOSED RESPIRATIONS WITH EASE AND UNLABORED.
--- NOTE | 2017-06-22 01:50 | NUR ---
OMAR RN HERE TO PULL PROCALAMINE SOLUTION. PROCALAMINE HUNG ORDERED TO RUN AT 125CC'S/HR
[2017-06-22 04:00] VITALS: BP 190/119
--- NOTE | 2017-06-22 04:51 | NUR ---
C/O PAIN IN LEGS AND B/P=190/119. OXY IR 5MG PO GIVEN FOR LEG PAIN. CATAPRES 0.1MG PO GIVEN FOR ELEVATED B/P.
[2017-06-22 05:45] LABS: BASOPHILS 0.2 % (0-2); EOSINOPHILS 0 % (0-7); HEMATOCRIT 31.7 % (36.0-48.0); HEMOGLOBIN 10.7 g/dL (12-16); IMMATURE GRANULOCYTES 0.2 % (0-5); LYMPHOCYTES 29.9 % (15-50); MCH 27.3 pg (26.0-34.0); MCHC 33.8 g/dL (31.0-37.0); MCV 80.9 fL (80.0-100.0); MEAN PLATELET VOLUME 10.7 fL (7.4-10.4); NEUTROPHILS 60.7 % (40-80); PLATELET COUNT 241 10x3/uL (130-400); RBC 3.92 10x6/uL (4.00-5.40); RDW 16.5 % (11.5-14.5)
[2017-06-22 05:51] LABS: ALBUMIN 2.9 g/dL (3.4-5.0); ANION GAP 14.4 mmol/L (8-16); BILIRUBIN - TOTAL 0.38 mg/dL (0.2-1.3); CALCIUM 8.7 mg/dL (8.5-10.1); CARBON DIOXIDE 19.7 mmol/L (21.0-32.0); POTASSIUM - SERUM 3.1 mmol/L (3.5-5.1); PROTEIN - SERUM 6.1 g/dL (6.4-8.2)
[2017-06-22 06:00] LABS: WBC 4.4 10x3/uL (4.8-10.8)
[2017-06-22 06:10] LABS: CREATININE - SERUM 0.9 mg/dL (0.6-1.3)
--- NOTE | 2017-06-22 06:36 | NUR ---
K+ RESULTS=3.1. K+ 40MEQ PO GIVEN PER Mallory OLIVER.
--- NOTE | 2017-06-22 07:15 | NUR ---
REPORT RECEIVED FROM MELTER CASTER NURSE. CALL LIGHT IN REACH.
[2017-06-22 08:30] VITALS: BP 154/100
[2017-06-22 08:51] LABS: APTT 26.6 SECONDS (22.8-39.4); INR 1.11 (0.85-1.17); PROTIME 14.2 SECONDS (11.6-15.0)
--- NOTE | 2017-06-22 09:47 | NUR ---
ASSESSMENT COMPLETED. NORVASC AND CELEXA PO WITH SIP OF WATER. SECOND IV SITED TO LEFT AC WITH 20 GA X1 STICK FOR CTA. FOLIC ACID INFUSING IN IT AT THIS TIME. EXPLAINED AND OFFERED SCDs BUT PATIENT REFUSES. BED ALARM TURNED ON D/T FALL SCORE. PASSWORD OBTAINED AND PLACED IN COMPUTER. IN ROOM. CALL LIGHT IN REACH. WILL CONTINUE WITH PLAN OF CARE.
--- NOTE | 2017-06-22 09:53 | NUR ---
STATES SHE HAS NOT BEING VOIDING. 400 CC OF URINE WAS NOTED IN BSC. INFORMED PATIENT OF THIS AND SHE SAID "OH, I MUST HAVE BEEN PEEING MORE THAN WHAT I THOUGHT." [place] HAT PLACED IN BSC FOR MEASUREMENT OF URINE AND STERILE CUP GIVEN TO PATIENT FOR URINE SPECIMEN.
--- NOTE | 2017-06-22 11:16 | NUR ---
OXY IR PO PER C/O PAIN OF 7 IN ABDOMEN.
[2017-06-22 11:39] VITALS: BP 134/80
--- NOTE | 2017-06-22 12:01 | NUR ---
CONSENT FOR LUMBAT PUNCTURE SIGNED AND WITNESSED. FSBS 90. NO COVERAGE REQUIRED.
--- NOTE | 2017-06-22 12:04 | NUR ---
TO SPECIALS VIA BED.
--- NOTE | 2017-06-22 13:11 | NUR ---
PATIENT NOT IN ROOM AT THIS TIME.
[2017-06-22 13:42] VITALS: BMI 35.3
[2017-06-22 14:00] LABS: APPEARANCE - CSF CLEAR
[2017-06-22 14:01] LABS: RBC - CSF 4 cmm (0-0)
[2017-06-22 14:09] LABS: GLUCOSE - CSF 66 MG/DL (40-75); PROTEIN - CSF 39 MG/DL (12-60)
[2017-06-22 15:07] VITALS: BP 130/78
--- NOTE | 2017-06-22 15:20 | NUR ---
RESTING WITH EYES CLOSED. RESP EVEN AND UNLABORED. CALL LIGHT IN REACH. BED ALARM IS ON.
--- NOTE | 2017-06-22 17:10 | NUR ---
AFTERNOON MEDS ADMINISTERED WITH OXY IR PO PER PAIN OF 7 TO BLE AND SIDE. FSBS 103. IV TO LEFT AC WITH SWELLING. IV DC'D WITH TIP INTACT. AT BEDSIDE. CALL LIGHT IN REACH.
--- NOTE | 2017-06-22 18:01 | NUR ---
CLEAN CATCH URINE OBTAINED AND SENT TO LAB. IV RESITED TO RIGHT HAND WITH 20 GA X2 STICKS. NO OTHER CHANGES IN INITIAL ASSESSMENT. CALL LIGHT IN REACH. STILL REFUSES SCDs. BED ALARM ON. IN ROOM. WILL CONTINUE WITH PLAN OF CARE.
[2017-06-22 18:37] LABS: APPEARANCE HAZY (CLEAR); BILIRUBIN NEGATIVE (NEGATIVE); COLOR YELLOW (YELLOW); GLUCOSE NEGATIVE (NEGATIVE); KETONE NEGATIVE (NEGATIVE); NITRITE NEGATIVE (NEGATIVE); PROTEIN NEGATIVE (NEGATIVE); UROBILINOGEN NORMAL (NORMAL)
[2017-06-22 18:38] LABS: BACTERIA MANY /hpf (NONE SEEN); RED CELLS - URINE 0-5 /hpf (0-5)
[2017-06-22 20:00] VITALS: BP 140/85
[2017-06-23 04:00] VITALS: BP 156/98
[2017-06-23 06:32] LABS: BASOPHILS 0.2 % (0-2); EOSINOPHILS 0 % (0-7); HEMATOCRIT 33.6 % (36.0-48.0); IMMATURE GRANULOCYTES 0.6 % (0-5); LYMPHOCYTES 32.9 % (15-50); MCH 26.8 pg (26.0-34.0); MCHC 32.7 g/dL (31.0-37.0); MEAN PLATELET VOLUME 10.1 fL (7.4-10.4); MONOCYTES 5.5 % (2-11); NEUTROPHILS 60.8 % (40-80); PLATELET COUNT 278 10x3/uL (130-400); RDW 16.7 % (11.5-14.5)
[2017-06-23 06:45] LABS: WBC 6.6 10x3/uL (4.8-10.8)
[2017-06-23 07:01] LABS: ALKALINE PHOSPHATASE 93 U/L (46-116); ALT (SGPT) 43 U/L (10-68); BILIRUBIN - TOTAL 0.34 mg/dL (0.2-1.3); CALC OSMOLALITY 269 mosm/kg (275-300); CALCIUM 8.8 mg/dL (8.5-10.1); CARBON DIOXIDE 22.6 mmol/L (21.0-32.0); CHLORIDE - SERUM 101 mmol/L (98-107); CREATININE - SERUM 0.7 mg/dL (0.6-1.3); GLUCOSE 102 mg/dL (74-106); POTASSIUM - SERUM 3.8 mmol/L (3.5-5.1); PROTEIN - SERUM 6.5 g/dL (6.4-8.2); SODIUM 133 mmol/L (136-145); UREA NITROGEN 23 mg/dL (7-18); eGFR NON AFRICAN AMERICAN > 90 mL/min (90-120)
--- NOTE | 2017-06-23 07:15 | NUR ---
REPORT RECEIVED FROM EXERCISE SPECIALIST NURSE. CALL LIGHT IN REACH.
[2017-06-23 08:11] VITALS: BP 153/99
--- NOTE | 2017-06-23 08:25 | NUR ---
ASSESSMENT COMPLETED. AM MEDS ADMINISTERED. SOMA AND OXY IR PO. REFUSES SCDs. BED ALARM ON. DR. LESTER IN ROOM TO SEE PATIENT. CALL LIGHT IN REACH. WILL CONTINE WITH PLAN OF CARE.
--- NOTE | 2017-06-23 09:01 | NUR ---
FOLIC ACID IV. STATES PAIN IS DOWN TO A 3. CALL LIGHT IN REACH.
--- NOTE | 2017-06-23 10:10 | NUR ---
PATIENT SITTING UP ON SIDE OF BED ALERT. NO SIGNS OF DISTRESS NOTED. DENIES BED IN LOW POSITION. CALL LIGHT IN REACH.
--- NOTE | 2017-06-23 10:13 | NUR ---
EUGENIA IVPB PER ORDER. WILL ASK MD IF WE CAN SEND A STOOL SAMPLE TO THE LAB BECAUSE OF THE ORDER. AT BEDSIDE. CALL LIGHT IN REACH.
--- NOTE | 2017-06-23 10:24 | NUR ---
Patient Name: RAFAEL PETTY Admission Status: Elective Accout number: [id number] Admission Date: 06-21-2017 : 1975 Admission Diagnosis:ALTERED MENTAL STATUS, UNSPECIFIED Attending: WILIAM ANTONIO Current LOS: 2 Anticipated DC Date: 06-25-2017 Planned Disposition: Half-Way Facility Primary Insurance: MEDICARE A & B Discharge Planning Comments: CM MET WITH PATIENT AND SPOUSE (LATANYA) REGARDING D/C NEEDS AND PLANS. PATIENT HAS ONE STEP TO ENTER HOME AND NO STAIRS INSIDE. PATIENT STATED SHE REALLY DID NOT WANT TO GO TO A SNF BUT IF SHE HAD TO IT WOULD BE [facility] AND AKIL WAS SIGNED. IF PATIENT NEEDS HOME HEALTH THE [facility] FORM WAS SIGNED WITH [facility]. PATIENT HAS BEEN INDEPENDENT AND HAS A WALKER, AND GLUCOMETER AT HOME. PATIENTS PCP IS DR. ONEIL AND PH[facility]ACY IS [facility]. CM WILL CONTINUE TO FOLLOW PATIENT WITH D/C NEEDS AND PLANS. PCP DR[facility]- [phone] LATANYA (SPOUSE) [phone] Award Machine Operator: Morenita Kaur Is the patient Alert and Oriented? Yes 0 * How many steps to enter\exit or inside your home? 1 0 * PCP CLARICE 0 * Pharmacy [facility] 0 * Preadmission Environment Home with Family 0 * ADLs Independent 0 * Equipment Glucometer Walker 0 * List name and contact numbers for known caregivers / representatives who currently or will assist patient after discharge: LATANYA (SPOUSE) [phone] 0 * Community resources currently utilized None 0 * Additional services required to return to the preadmission environment? Yes 0 * Can the patient safely return to the preadmission environment? Yes 0 * Has this patient been hospitalized within the prior 30 days at any hospital? No 0 Grand Total: 0
--- NOTE | 2017-06-23 12:18 | NUR ---
BLOOD SUGAR 99 SO NO COVERAGE REQUIRED. WILL START ROCEPHIN AFTER SOLUMEDROL IS COMPLETED.
[2017-06-23 12:35] VITALS: BP 120/74
--- NOTE | 2017-06-23 14:10 | NUR ---
PATIENT FOUND ON FLOOR BY JACKIE, NURSE AID. PATIENT ALERT AND TALKING. STATES "MY KNEE GAVE OUT WHEN I WAS COMING BACK FROM THE BATHROOM." DENIES HITTING HEAD. C/O BURING TO LEFT KNEE. PATIENT ASSISTED FROM FLOOR TO BED BY STAFF. YELLOW BAND, SKID PROOF SOCKS, AND BED ALARM ON. FAMILY AT BEDSIDE. PHYSICIAN NOTIFIED. KNEE XRAY ORDER OBTAINED. SIDE RAILS UP X2. BED IN LOW POSITION. CALL LIGHT IN REACH.
[2017-06-23 14:22] VITALS: BP 151/96
--- NOTE | 2017-06-23 14:44 | NUR ---
FOUND ON FLOOR WHILE I WAS AT [facility]UN[facility]. I SPOKE WITH THE AND HE STATED THAT HE TURNED THE BED ALARM AND TUOK HER TO THE BR AND SHE SLID TO THE FLOOR. EXPLAINED TO PATIENT AND THAT THEY HAVE TO CALL WHEN SHE NEEDS TO GET UP LIKE I EXPLAINED YESTERDAY AND EARLIER. THEY BOTH VERBALIZED UNDERSTANDING.
[2017-06-23 16:14] LABS: AFB SPECIMEN PROCESSING Not Indicated (())
--- NOTE | 2017-06-23 16:46 | NUR ---
2 UNITS OF INSULIN ADMINISTERED PER ULISES COTTRELL, FOR BLOOD SUGAR OF 177.
--- NOTE | 2017-06-23 17:26 | NUR ---
ULISES JUAN, ASSISTED PATIENT TO BSC AND BACK TO BED.
[2017-06-23 17:27] VITALS: BP 151/96
--- NOTE | 2017-06-23 18:59 | NUR ---
NO CHANGES IN INITIAL ASSESSMENT. BED ALARM ON. STILL REFUSES SCDs. AT BEDSIDE. WILL CONTINUE WITH PLAN OF CARE.
[2017-06-23 20:00] VITALS: BP 149/99
--- NOTE | 2017-06-23 20:00 | NUR ---
ASSESSMENT SPER FLOWSHEET. IV RT HAND OF NS AT 10CC'S/HR .IOV LEFT HAND OF PROCAL AT 125CC'S/HR. BED ALARM BED ACTIVATED,
--- NOTE | 2017-06-23 21:30 | NUR ---
MEDS GIVEN PER CLIFF OXY IR 5MG PO GIVEN FOR PAIN IN HER BACK. YIXW=114 HUMALOG 2 UNITS GIVEN SUBC PER S/S.
[2017-06-24] VITALS: BP 148/96; BP 154/104
--- NOTE | 2017-06-24 | NUR ---
EYES CLOSED RESPIRATIONS WITH EASE AND UNLABORED.
--- NOTE | 2017-06-24 01:00 | NUR ---
AWAKE UP TO BSC VOIDS WELL. ASSISTED BACK TO BED.
[2017-06-24 04:00] VITALS: BP 145/96
--- NOTE | 2017-06-24 04:00 | NUR ---
PATIENT AWAKE AND PULLED OUT IV NS SITE. UNABLE TO FIND A IV SITE. NO IV MEDS DUE UNTIL 1100 AM. WILL ALLOW PT TO SLEEP FOR NOW
[2017-06-24 05:18] LABS: BASOPHILS 0 % (0-2); EOSINOPHILS 0 % (0-7); HEMATOCRIT 31.9 % (36.0-48.0); HEMOGLOBIN 10.9 g/dL (12-16); IMMATURE GRANULOCYTES 0.4 % (0-5); LYMPHOCYTES 17.2 % (15-50); MCH 27.8 pg (26.0-34.0); MCHC 34.2 g/dL (31.0-37.0); MCV 81.4 fL (80.0-100.0); MEAN PLATELET VOLUME 10.5 fL (7.4-10.4); MONOCYTES 1.3 % (2-11); NEUTROPHILS 81.1 % (40-80); PLATELET COUNT 273 10x3/uL (130-400); RBC 3.92 10x6/uL (4.00-5.40); RDW 16.7 % (11.5-14.5)
[2017-06-24 05:25] LABS: WBC 4.7 10x3/uL (4.8-10.8)
[2017-06-24 05:43] LABS: ALBUMIN 3.2 g/dL (3.4-5.0); ALKALINE PHOSPHATASE 84 U/L (46-116); ALT (SGPT) 34 U/L (10-68); CALCIUM 9.3 mg/dL (8.5-10.1); CARBON DIOXIDE 23.4 mmol/L (21.0-32.0); CHLORIDE - SERUM 101 mmol/L (98-107); CREATININE - SERUM 0.7 mg/dL (0.6-1.3); POTASSIUM - SERUM 4.3 mmol/L (3.5-5.1); PROTEIN - SERUM 6.4 g/dL (6.4-8.2); SODIUM 135 mmol/L (136-145); UREA NITROGEN 21 mg/dL (7-18); eGFR NON AFRICAN AMERICAN > 90 mL/min (90-120)
[2017-06-24 05:54] LABS: CALC OSMOLALITY 275 mosm/kg (275-300); GLUCOSE 151 mg/dL (74-106)
--- NOTE | 2017-06-24 06:00 | NUR ---
DRAA=862 HUMALOG INSULIN 2 UNITS GIVEN SUBC PER S/S
--- NOTE | 2017-06-24 07:15 | NUR ---
REPORT RECEIVED. CALL LIGHT IN REACH.
--- NOTE | 2017-06-24 08:45 | NUR ---
ASSESSMENT COMPLETED. OXY IR AND SOMA WITH AM MEDS. REFUSES SCDs. BED ALARM ON. AT ROOM. CALL LIGHT IN REACH. WILL CONTINUE WITH PLAN OF CARE.
[2017-06-24 08:55] VITALS: BP 145/99
--- NOTE | 2017-06-24 10:05 | NUR ---
EYES CLOSED. NO DISTRESS NOTED AT THIS TIME. CALL LIGHT IN REACH.
--- NOTE | 2017-06-24 10:08 | NUR ---
THIAMINE IV. CALL LIGHT IN REACH.
[2017-06-24 11:29] VITALS: BP 121/76
--- NOTE | 2017-06-24 12:05 | NUR ---
EYES CLOSED. NO DISTRESS NOTED AT THIS TIME. CALL LIGHT IN REAC
--- NOTE | 2017-06-24 14:55 | NUR ---
NUTRITION F/U PT VISIT. PT STATES SHE HAS NOT FELT LIKE EATING MUCH. PROCALAMINE RATE DECREASED TO 50 CC/HR. PROTEIN SHAKE ORDERED WITH BARIATRIC DIET. WILL CONTINUE TO PROVIDE DIET/SUPPLEMENT. MONITOR PT PROGRESS. RD FOLLOWING
--- NOTE | 2017-06-24 14:56 | NUR ---
AFTERNOON MEDS ADMINISTERED WITH OXY IR. CALL LIGHT IN REACH.
--- NOTE | 2017-06-24 15:01 | NUR ---
OT NOTE: PT CONT TO HAVE DIFFICULTY WITH TRANSFERS. DECREASED STRENGTH IN LLE. PT REPORTS PAIN IN BOTTOM OF FEET, MORE SO DURING STANDING. PERFORMED BED MOB WITH MIN ASSIST
[2017-06-24 16:13] VITALS: BP 124/80
[2017-06-24 16:15] LABS: IGGS - IGG INDEX CSF 0.7 (0.0-0.7); IGGS - IGG SYNTHESIS RATE CSF 2.8 mg/day (-9.9 TO +3.3)
--- NOTE | 2017-06-24 16:29 | NUR ---
OT NOTE: PT COMPLETED BED MOB WITH CGA. PT COMPLETED SITTING BALANCE WITH SBA. PT COMPLETED SIMPLE GROOMING TASK WITH SET UP. PT COMPLETED BUE AROM EXS FOR INCREASED I WITH ADLS. THANK YOU, BEE CEDEÑO/Elliott
--- NOTE | 2017-06-24 16:50 | NUR ---
RESTING WITH EYES CLOSED. RESP EVEN AND UNLABORED. CALL LIGHT IN REACH.
--- NOTE | 2017-06-24 17:07 | NUR ---
Rehab Note- Acute Rehab Prescreen order received. Will follow at this time. Thank you for this referral! Tiny De Anda RN Clinical Liaison, [facility] [place]
--- NOTE | 2017-06-24 19:00 | NUR ---
REPORT RECEIVED AND CARE OF PT ASSUMED. PT LYING IN SUPINE POSITION WITH EYES CLOSED AND EASY RESPIRATIONS. IV IN RIGHT HAND PATENT WITH NS INFUSING AT 10 AND PROCALAMINE INFUSING AT 50 ML / HR. WILL MONITOR CLOSELY FOR NEEDS.
[2017-06-24 19:49] VITALS: BP 137/87
--- NOTE | 2017-06-24 21:20 | NUR ---
HS MEDICATIONS GIVEN. FSBS 146 THIS CHECK REQUIRING NO COVERAGE PER SLIDING SCALE. WILL CONTINUE TO MONITOR FOR NEEDS.
[2017-06-25] VITALS: BP 130/82
[2017-06-25 04:00] VITALS: BP 140/93
--- NOTE | 2017-06-25 04:37 | NUR ---
PT PULLED OUT IV WHILE GETTING UP TO BSC. CATHETER TIP INTACT. RE-SITED IV TO LEFT AC USING 20 GUAGE CATHETER IN ONE STICK. CHANGED ALL IV TUBING PER SCHEDULE, AND TAGGED FOR NEXT DATE.
[2017-06-25 05:17] LABS: BASOPHILS 0 % (0-2); EOSINOPHILS 0 % (0-7); HEMATOCRIT 34.7 % (36.0-48.0); HEMOGLOBIN 11.6 g/dL (12-16); IMMATURE GRANULOCYTES 0.9 % (0-5); LYMPHOCYTES 13.6 % (15-50); MCH 27.6 pg (26.0-34.0); MCHC 33.4 g/dL (31.0-37.0); MCV 82.4 fL (80.0-100.0); MEAN PLATELET VOLUME 10.3 fL (7.4-10.4); MONOCYTES 2.9 % (2-11); NEUTROPHILS 82.6 % (40-80); PLATELET COUNT 388 10x3/uL (130-400); RBC 4.21 10x6/uL (4.00-5.40); RDW 17.4 % (11.5-14.5); WBC 9.2 10x3/uL (4.8-10.8)
[2017-06-25 05:44] LABS: ALBUMIN 3.3 g/dL (3.4-5.0); ALKALINE PHOSPHATASE 108 U/L (46-116); ALT (SGPT) 95 U/L (10-68); BILIRUBIN - TOTAL 0.32 mg/dL (0.2-1.3); CALC OSMOLALITY 274 mosm/kg (275-300); CALCIUM 9.6 mg/dL (8.5-10.1); CHLORIDE - SERUM 100 mmol/L (98-107); CREATININE - SERUM 0.8 mg/dL (0.6-1.3); GLUCOSE 150 mg/dL (74-106); PROTEIN - SERUM 6.9 g/dL (6.4-8.2); SODIUM 134 mmol/L (136-145); UREA NITROGEN 25 mg/dL (7-18); eGFR NON AFRICAN AMERICAN 83 mL/min (90-120)
--- NOTE | 2017-06-25 06:44 | NUR ---
BLOOD SUGAR THIS AM 150 REQUIRING NO COVERAGE PER SLIDING SCALE.
--- NOTE | 2017-06-25 07:40 | NUR ---
ASSESSMENT COMPLETE. IV TO L AC PATENT. PROCALAMINE INFUSING AT 50 CC/HR AND NS INFUSING AT KVO VIA PUMP. BED ALARM IN USE. FAMILY AT BEDSIDE. DENIES ANY NEEDS AT THIS TIME.
[2017-06-25 08:15] VITALS: BP 141/71
[2017-06-25 11:16] LABS: FOLATE (FOLIC ACID) - SERUM <2.0 ng/mL (>3.0)
--- NOTE | 2017-06-25 12:00 | NUR ---
NO CHANGES NOTED AT THIS TIME.
[2017-06-25 12:33] VITALS: BP 132/83
--- NOTE | 2017-06-25 13:33 | NUR ---
ULTRAM GIVEN FOR PAIN IN R UPPER QUADRANT, L LOWER BACK DOWN TO L LEG. FAMILY AT BEDSIDE.
[2017-06-25] MEDS ORDERED: LOVENOX30 MG/0.3 SC (14:02)
[2017-06-25] MEDS ORDERED: PROAIR HFA8.5 GM INH (14:02)
[2017-06-25] MEDS ORDERED: ROCEPHIN 1 GM/D51 G1 IV (14:02)
[2017-06-25] MEDS ORDERED: HUMALOG 30100 UNITS/ SC (14:03)
[2017-06-25] MEDS ORDERED: MULTI-DAY VITAM1 TAB PO (14:03)
[2017-06-25] MEDS ORDERED: GLUCAGEN1 MG/VIAL IM (14:03)
[2017-06-25] MEDS ORDERED: GLUCAGEN1 MG/VIAL SC (14:04)
[2017-06-25] MEDS ORDERED: ULTRAM50 MG PO (14:04)
[2017-06-25] MEDS ORDERED: FLORAJEN3 CAPS460 MG PO (14:04)
--- NOTE | 2017-06-25 15:00 | NUR ---
PATIENT BEING DICHARGED TO INPATIENT REHAB TODAY. AT BEDSIDE AND KNOWS '
[2017-06-25 15:22] LABS: FUNGUS STAIN Final report (())
[2017-06-25] MEDS ORDERED: HYDROCODON-ACE1 EAC7 PO (16:20)
[2017-06-25] MEDS ORDERED: SOLU-CORTE100 MG/22 IV (16:27)
--- NOTE | 2017-06-25 17:35 | NUR ---
REPORT CALLED TO [facility] ON REHAB.
--- NOTE | 2017-06-25 17:50 | NUR ---
DC'D TO REHAB ROOM 1113B VIA WC WITH BELONGINGS.
--- NOTE | 2017-06-25 18:24 | NUR ---
OT NOTE: PT COMPLETED SIMPLE HYGIENE TASK WITH CGA. THANK YOU, JOHN CEDEÑO
[2017-06-28 12:13] LABS: THYROGLOBULIN ANTIBODY 0.1 IU/mL (0.0-0.9)
[2017-07-20 08:17] LABS: FUNGUS MYCOLOGY CULTURE Final report (())
[2017-08-13 11:18] LABS: ACID FAST CULTURE Negative (()); ACID FAST SMEAR Negative (())
== END 2017-06-25 17:55 | DRG 947 ==
LOC: D.MS 13:53
PROVIDERS: Family Medicine; General Practice; Psychiatry & Neurology Neurology; Surgery; ADMIT Family Medicine
PROC: 009U3ZX Drainage of Spinal Canal, Percutaneous Approach, Diagnostic (ICD-10-PCS; principal; 2017-06-22)
PROC: B01B1ZZ Fluoroscopy of Spinal Cord using Low Osmolar Contrast (ICD-10-PCS; 2017-06-22)
DX: R53.1 Weakness (principal); E43 Unspecified severe protein-calorie malnutrition; R41.82 Altered mental status, unspecified; R11.2 Nausea with vomiting, unspecified; E86.0 Dehydration; E11.40 Type 2 diabetes mellitus with diabetic neuropathy, unspecified; E11.65 Type 2 diabetes mellitus with hyperglycemia; I10 Essential (primary) hypertension; G47.33 Obstructive sleep apnea (adult) (pediatric); K21.9 Gastro-esophageal reflux disease without esophagitis; J44.9 Chronic obstructive pulmonary disease, unspecified; D64.89 Other specified anemias; H55.00 Unspecified nystagmus; W06.XXXA Fall from bed, initial encounter; Y92.230 Patient room in hospital as the place of occurrence of the external cause; M25.569 Pain in unspecified knee

== ENCOUNTER 2017-06-25 18:33 | Inpatient (IN) | payer MEDICARE ==
[~2017-06-25 18:33] MED LIST changes: +FLORAJEN3 CAPS460 MG PO; +GLUCAGEN1 MG/VIAL IM; +GLUCAGEN1 MG/VIAL SC; +HUMALOG 30100 UNITS/ SC; +HYDROCODON-ACE1 EAC7 PO; +LOVENOX30 MG/0.3 SC; +MULTI-DAY VITAM1 TAB PO; +ROCEPHIN 1 GM/D51 G1 IV; +SOLU-CORTE100 MG/22 IV; +ULTRAM50 MG PO
--- NOTE | 2017-06-25 19:30 | NUR ---
PT IS RESTING IN BED WITH EYES OPEN. ALERT AND ORIENTED X 3. DENIES ACUTE DISCOMFORT AT THIS TIME. LEFT AC SALINE LOCK NOTED. SR'S ARE UP X 3 IN BED. CALL LIGHT AND BEDSIDE TABLE ARE WITHIN EASY REACH. SPOUSE IS IN ROOM.
[2017-06-25 20:00] VITALS: BP 117/91
--- NOTE | 2017-06-25 21:53 | NUR ---
PT IS RESTING IN BED VISITING WITH HER . NO NEEDS VOICED.
[2017-06-25 22:06] VITALS: BMI 36.8
--- NOTE | 2017-06-25 22:25 | NUR ---
ASSESSMENT COMPLETE. DENIES CURRENT NEEDS.
--- NOTE | 2017-06-26 00:17 | NUR ---
RESTING IN BED WITH EYES CLOSED.
[2017-06-26 05:59] LABS: BASOPHILS 0 % (0-2); EOSINOPHILS 0 % (0-7); HEMATOCRIT 31.5 % (36.0-48.0); HEMOGLOBIN 10.3 g/dL (12-16); LYMPHOCYTES 14.2 % (15-50); MCH 27.1 pg (26.0-34.0); MCHC 32.7 g/dL (31.0-37.0); MCV 82.9 fL (80.0-100.0); MEAN PLATELET VOLUME 9.9 fL (7.4-10.4); MONOCYTES 6.2 % (2-11); NEUTROPHILS 78.6 % (40-80); RDW 17.4 % (11.5-14.5)
[2017-06-26 06:06] LABS: PLATELET COUNT 305 10x3/uL (130-400); WBC 5.1 10x3/uL (4.8-10.8)
[2017-06-26 06:22] LABS: CALC OSMOLALITY 276 mosm/kg (275-300); CALCIUM 8.9 mg/dL (8.5-10.1); CARBON DIOXIDE 26.2 mmol/L (21.0-32.0); CHLORIDE - SERUM 100 mmol/L (98-107); CREATININE - SERUM 0.8 mg/dL (0.6-1.3); GLUCOSE 139 mg/dL (74-106); POTASSIUM - SERUM 3.7 mmol/L (3.5-5.1); SODIUM 135 mmol/L (136-145); UREA NITROGEN 27 mg/dL (7-18); eGFR NON AFRICAN AMERICAN 83 mL/min (90-120)
--- NOTE | 2017-06-26 06:25 | NUR ---
RESTING IN BED WITH EYES CLOSED.
--- NOTE | 2017-06-26 07:50 | NUR ---
LYING IN BED ON LEFT SIDE. ALERT AND ORIENTED X4. DENIES ANY NEEDS OR PAIN. NO S/SX OF DISTRESS. CALL LIGHT WITHIN REACH, BED LOW AND ALARM ON. WILL CONTINUE TO MONITOR
[2017-06-26 08:00] VITALS: BP 139/91
--- NOTE | 2017-06-26 08:19 | NUR ---
PT EATING BREAKFAST, DENIES NEEDS. WCTM.
--- NOTE | 2017-06-26 10:26 | NUR ---
IN SHOWER ASSISTED BY OT/ARCHANA FOR INITIAL EVAL. FAMILY IN ROOM.
[2017-06-26 14:39] VITALS: BMI 36.7
--- NOTE | 2017-06-26 15:34 | NUR ---
ASSISTED TO RESTROOM TRANSFERED FROM W/C TO TOILET WITH MIN ASSIST. ORIENTED TO CALL LIGHT IN RESTROOM. WILL CONTINUE TO MONITOR
--- NOTE | 2017-06-26 16:24 | NUR ---
LYING IN BED RESTING QUIETLY. FAMILY AT BEDSIDE. DENIES ANY NEEDS. CALL LIGHT WITHIN REACH, BED ALARM ON AND BED IN LOWEST POSITION. WILL CONTINUE TO MONITOR
--- NOTE | 2017-06-26 18:32 | NUR ---
LYING IN BED WATCHING TV. AT BEDSIDE. DENIES ANY NEEDS OR PAIN. CALL LIGHT WITHIN REACH, BED ALARM ON AND IN LOWEST POSITION. WILL CONTINUE TO MONITOR
--- NOTE | 2017-06-26 19:44 | NUR ---
PT IS RESTING IN BED VISITING WITH HER . NO NEEDS VOICED.
[2017-06-26 20:30] VITALS: BP 128/81
--- NOTE | 2017-06-26 22:06 | NUR ---
RESTING QUIETLY IN BED WITH EYES CLOSED.
--- NOTE | 2017-06-27 01:11 | NUR ---
PT ASSISTED TO THE BATHROOM WITH MOD ASSIST. VOIDED WITHOUT DIFFICULTY.
--- NOTE | 2017-06-27 03:34 | NUR ---
RESTING IN BED WITH EYES CLOSED AT THI STIME. NO S/S OF DISTRESS OHBSERVED. SALINE LOCK TO LEFT AC. PATENT AND DRESSING IN TACT. CALL LIGHT AND OVERBED TABLE IN REACH.
--- NOTE | 2017-06-27 06:28 | NUR ---
PT RESTING IN BED WITH EYES CLOSED. AWOKE EASILY TO VERBAL STIMULI. FSBS WNL. NO NEEDS VOICED.
--- NOTE | 2017-06-27 07:40 | NUR ---
LYING IN BED ON RIGHT SIDE EYES OPEN RESTING. AT BEDSIDE. ALERT AND ORIENTED X4. DENIES ANY NEEDS OR PAIN. NO S/SX OF ACUTE DISTRESSS. CALL LIGHT WITHIN REACH, BED ALARM ON AND BED IN LOWEST POSITION. WILL CONTINUE TO MONITOR
--- NOTE | 2017-06-27 11:40 | NUR ---
SITTING UP IN BED WATCHING TV. DENIES ANY NEEDS OR PAIN. NO FAMILY AT BEDSIDE. CALL LIGHT WITHIN REACH, BED LOW AND ALARM ON. WILL CONTINUE TO MONITOR
[2017-06-27 12:07] VITALS: BP 131/75
--- NOTE | 2017-06-27 12:29 | NUR ---
PT EATING LUNCH, DENIES NEEDS. WCTM.
--- NOTE | 2017-06-27 15:37 | NUR ---
SITTING UP IN BED WATCHING TV. DENIES ANY NEEDS. C/O PAIN IN LOWER BACK AND RIGHT ABDOMINAL AREA. PAIN MEDS ADMINISTERED PER REQUEST. CALL LIGHT WITHIN REACH, BED LOW AND ALARM ON. WILL CONTINUE TO MONITOR
--- NOTE | 2017-06-27 19:28 | NUR ---
PT IS RESTING IN BED WATCHING TV. ALERT AND ORIENTED X 3. DENIES ACUTE DISCOMFORT AT THIS TIME. PT STATES: " IM GETTING STRONGER AND STRONGER, BUT MY VISION IS POOR." SR'S ARE UP X 3 IN BED. CALL LIGHT AND BEDSIDE TABLE ARE WITHIN EASY REACH. SPOUSE AT BEDSIDE.
[2017-06-27 19:56] VITALS: BP 136/79
--- NOTE | 2017-06-27 21:31 | NUR ---
PT IS RESTING IN BED WATCHING TV. NO NEEDS VOICED.
--- NOTE | 2017-06-27 23:31 | NUR ---
RESTING IN BED WITH EYES CLOSED.
--- NOTE | 2017-06-28 03:45 | NUR ---
REST IN BED, EYE CLOSE, CALL LIGHT IN REACH.
--- NOTE | 2017-06-28 04:10 | NUR ---
RESTING IN BED WITH EYES CLOSED. NO S/S OF DISTRESS OBSERVED. AT BEDSIDE AND ASLEEP. CALL LIGHT AND OVERBED TABLE IN REACH.
[2017-06-28 05:51] LABS: BASOPHILS 0 % (0-2); EOSINOPHILS 0.4 % (0-7); HEMATOCRIT 31.8 % (36.0-48.0); HEMOGLOBIN 10.4 g/dL (12-16); IMMATURE GRANULOCYTES 0.4 % (0-5); LYMPHOCYTES 40.2 % (15-50); MCH 27.9 pg (26.0-34.0); MCHC 32.7 g/dL (31.0-37.0); MEAN PLATELET VOLUME 9.6 fL (7.4-10.4); MONOCYTES 5.2 % (2-11); NEUTROPHILS 53.8 % (40-80); PLATELET COUNT 277 10x3/uL (130-400); RBC 3.73 10x6/uL (4.00-5.40); RDW 17.2 % (11.5-14.5)
[2017-06-28 05:55] LABS: MCV 85.3 fL (80.0-100.0); WBC 7.3 10x3/uL (4.8-10.8)
[2017-06-28 06:15] LABS: CALC OSMOLALITY 287 mosm/kg (275-300); CARBON DIOXIDE 29.8 mmol/L (21.0-32.0); CHLORIDE - SERUM 103 mmol/L (98-107); CREATININE - SERUM 0.8 mg/dL (0.6-1.3); GLUCOSE 89 mg/dL (74-106); POTASSIUM - SERUM 3.1 mmol/L (3.5-5.1); SODIUM 141 mmol/L (136-145); UREA NITROGEN 36 mg/dL (7-18); eGFR NON AFRICAN AMERICAN 83 mL/min (90-120)
--- NOTE | 2017-06-28 06:55 | NUR ---
RESTING QUIETLY IN BED. BED IN LOWEST POSITION. CALL LIGHT IN REACH.
[2017-06-28 08:38] VITALS: BP 135/88
--- NOTE | 2017-06-28 18:16 | NUR ---
PT RESTING IN BED WITH EYES OPEN CALL LIGHT IN REACH WILL MONITER
--- NOTE | 2017-06-28 19:56 | NUR ---
PT. IN BED WITH HOB UP FOR COMFORT AND IS EATING FOOD THAT WAS BROUGHT IN TO HER. MALE VISITOR PRESENT ALSO. CALL LIGHT WITHIN REACH AND NO VOICED NEEDS.
--- NOTE | 2017-06-28 20:00 | NUR ---
PT IN BED WITH HOB UP FOR COMFORT. WATCHING TV. ALERT & ORIENTED. AT BEDSIDE. FSBS ACHS. LEFT AC SL. NO O2. BED IN LOWEST POSITION AND CALL LIGHT WITHIN REACH.
[2017-06-28 21:00] VITALS: BP 83/56
--- NOTE | 2017-06-29 | NUR ---
PT IN BED WITH HOB UP FOR COMFORT. RESTING QUIETLY. AT BEDSIDE. BED IN LOWEST POSITION AND CALL LIGHT WITHIN REACH.
--- NOTE | 2017-06-29 04:00 | NUR ---
PT IN BED WITH HOB UP FOR COMFORT. RESTING QUIETLY. RESP. EVEN. AT BEDSIDE. BED IN LOWEST POSITION AND CALL LIGHT WITHIN REACH.
--- NOTE | 2017-06-29 07:45 | NUR ---
SITTING UP IN BED RESTING. AT BEDSIDE. DENIES ANY NEEDS. ALERT AND ORIENTED X4. CALL LIGHT WITHIN REACH, BED LOW AND ALARM ON. WILL CONTINUE TO MONITOR
[2017-06-29 08:40] VITALS: BP 125/76
--- NOTE | 2017-06-29 08:45 | NUR ---
SITTING UP IN BED. AT BEDSIDE,CARES FOR NEEDS.
--- NOTE | 2017-06-29 10:08 | NUR ---
C/O OF INTERMITTENT DIZZINESS DUE TO HER EYES CONSTANTLY TWITCHING STATES IT BOTHERS HER THE MOST WHEN SHE IS UP OUT OF THE BED. WILL CONSULT WITH CARE TEAM. NO OTHER CONCERNS VOICED.
--- NOTE | 2017-06-29 12:56 | NUR ---
SITTING UP IN BED RESTING. NO FAMILY AT BEDSIDE. DENIES ANY NEEDS. CALL LIGHT WITHIN REACH, BED ALARM ON AND IN LOWEST POSITION. WILL CONTINUE TO MONITOR
--- NOTE | 2017-06-29 15:48 | NUR ---
PATIENT ADMITTED TO REHAB FROM ACUTE FLOOR.PCP IS DR. ONEIL AND HER PHARMACY IS [facility]. DME AT HOME IS [facility]. [facility] IS HER HOME HEALTH OF CHOICE AND IF SHE NEEDS SNF SHE WOULD PREFER [facility]. WILL CONTINUE TO FOLLOW WITH PATIENT
--- NOTE | 2017-06-29 16:24 | NUR ---
LYING IN BED RESTING AND WATCHING TV. DENIES ANY NEEDS. NO S/SX OF ACUTE DISTRESS. CALL LIGHT WITHIN REACH, BED ALARM ON, SR X2 AND IN LOWEST POSITION. WILL CONTINUE TO MONITOR
--- NOTE | 2017-06-29 19:36 | NUR ---
PT. IN BED LYING ON HER LEFT SIDE WITH HOB UP FOR COMFORT. PT WATCHING TV AND HAS NO VOICED NEEDS. CALL LIGHT WITHIN REACH.
[2017-06-29 22:09] VITALS: BP 101/61
--- NOTE | 2017-06-30 | NUR ---
PT IN BED WITH HOB UP FOR COMFORT. RESTING QUIETLY. RESPIRATIONS EVEN AND UNLABORED. BED IN LOWEST POSITION AND CALL LIGHT WITHIN REACH.
[2017-06-30 06:08] LABS: BASOPHILS 0 % (0-2); EOSINOPHILS 0.1 % (0-7); HEMOGLOBIN 10.7 g/dL (12-16); IMMATURE GRANULOCYTES 0.6 % (0-5); LYMPHOCYTES 36.8 % (15-50); MCH 27.9 pg (26.0-34.0); MCHC 32.4 g/dL (31.0-37.0); MCV 86.2 fL (80.0-100.0); MEAN PLATELET VOLUME 10.2 fL (7.4-10.4); MONOCYTES 5.6 % (2-11); NEUTROPHILS 56.9 % (40-80); PLATELET COUNT 287 10x3/uL (130-400); RBC 3.83 10x6/uL (4.00-5.40); RDW 17.7 % (11.5-14.5); WBC 7.9 10x3/uL (4.8-10.8)
[2017-06-30 06:30] LABS: ANION GAP 10.4 mmol/L (8-16); CALCIUM 8.8 mg/dL (8.5-10.1); CARBON DIOXIDE 29.7 mmol/L (21.0-32.0); CREATININE - SERUM 1.1 mg/dL (0.6-1.3); POTASSIUM - SERUM 3.1 mmol/L (3.5-5.1)
[2017-06-30 08:42] VITALS: BP 122/88
--- NOTE | 2017-06-30 15:21 | NUR ---
CARE TEAM MEETING: PATIENT TENATIVE DISCHARGE DATE IS 07/08/17. DISCHARGE PLANS ARE FOR PATIENT TO DISCHARGE HOME WITH FAMILY. SPOUSE ATTENDED MEETING. WILL CONTINUE TO FOLLOW WITH PATIENT.
--- NOTE | 2017-06-30 18:17 | NUR ---
RESTING QUIETLY IN BED. DENIES NEEDS. CALL LIGHT IN REACH
--- NOTE | 2017-06-30 19:17 | NUR ---
PT. IN BED WITH HOB UP AND VISITING WITH MALE VISITOR. NO VOICED NEEDS AND HER CALL LIGHT IS WITHIN REACH.
[2017-06-30 20:30] VITALS: BP 104/72
--- NOTE | 2017-06-30 23:30 | NUR ---
PT IN BED WITH HOB UP FOR COMFORT. RESTING QUIETLY. RESPIRATIONS EVEN AND UNLABORED. BED IN LOWEST POSITION AND CALL LIGHT WITHIN REACH. AT BEDSIDE.
--- NOTE | 2017-07-01 03:30 | NUR ---
PT IN BED WITH HOB UP FOR COMFORT. EYES CLOSED. CHEST RISING AND FALLING. BED IN LOWEST POSITION AND CALL LIGHT WITHIN REACH. AT BEDSIDE.
--- NOTE | 2017-07-01 06:52 | NUR ---
PT UP IN WC. AT BEDSIDE. CL IN REACH.
--- NOTE | 2017-07-01 07:15 | NUR ---
SITTING UP IN BED RESTING. AT BEDSIDE. ALERT AND ORIENTED X4. DENIES ANY NEEDS. CALL LIGHT WITHIN REACH, BED LOW, SR X2, AND BED IN LOWEST POSITION. WILL CONTINUE TO MONITOR
--- NOTE | 2017-07-01 07:20 | NUR ---
RESTING QUIETLY IN BED. BED IN LOWEST POSITION. CALL LIGHT IN REACH
[2017-07-01 08:05] VITALS: BP 96/33
--- NOTE | 2017-07-01 09:25 | NUR ---
SITTING UP IN BED RESTING COMFORTABLY. DENIES ANY NEEDS. CALL LIGHT WITHIN REACH, BED ALARM ON AND BED IN LOWEST POSITION. WILL CONTINUE TO MONITOR
--- NOTE | 2017-07-01 12:15 | NUR ---
IN THERAPY GYM WITH PHYSICAL THERAPY. DENIES ANY NEEDS. WILL CONTINUE TO MONITOR
--- NOTE | 2017-07-01 12:27 | NUR ---
Nutrition Follow Up: Pt requested info on post gastric surgery. Written info provided to pt. Pt had no questions at that time. Pt is eating 50% meal avg on a regular diet. +BM 06/29/17. Labs and meds noted. Rec continue current diet. RD following.
--- NOTE | 2017-07-01 14:17 | NUR ---
IN THERAPY GYM WITH THERAPIST. DENIES ANY NEEDS. WILL CONTINUE TO MONITOR
--- NOTE | 2017-07-01 18:22 | NUR ---
DISCONTINUED LEFT AC IV CATHETER INTACT. 2X2 GAUZE PRESSURE DRESSING APPLIED.
--- NOTE | 2017-07-01 20:30 | NUR ---
REST IN BED AND WATCH TV.
[2017-07-01 22:56] VITALS: BP 116/59
--- NOTE | 2017-07-01 23:52 | NUR ---
REST COMFORTABLY IN BED, HOB 20 DEGREE, CALL LIGHT IN REACH.
--- NOTE | 2017-07-02 02:24 | NUR ---
RESTING IN BED WITH EYES CLOSED. N O S/S OF DISTRESS OBSERVED. CALL LIGHT AND OVERBED TABLE IN REACH. SPOUSE AT BEDSIDE.
--- NOTE | 2017-07-02 04:17 | NUR ---
RESTING IN BED WITH EYES CLOSED. SPOUSE AT BEDSIDE. NO S/S OF DISTRESS OBSERVED. CALL LIGHT AND OVERBED TABLE IN REACH.
[2017-07-02 05:18] LABS: BASOPHILS 0.1 % (0-2); EOSINOPHILS 0 % (0-7); HEMATOCRIT 33.2 % (36.0-48.0); HEMOGLOBIN 10.4 g/dL (12-16); IMMATURE GRANULOCYTES 0.3 % (0-5); LYMPHOCYTES 31.7 % (15-50); MCH 27.6 pg (26.0-34.0); MCHC 31.3 g/dL (31.0-37.0); MCV 88.1 fL (80.0-100.0); MEAN PLATELET VOLUME 10.4 fL (7.4-10.4); MONOCYTES 6.4 % (2-11); NEUTROPHILS 61.5 % (40-80); PLATELET COUNT 277 10x3/uL (130-400); RBC 3.77 10x6/uL (4.00-5.40); RDW 18.4 % (11.5-14.5); WBC 7.9 10x3/uL (4.8-10.8)
[2017-07-02 05:34] LABS: ANION GAP 13.6 mmol/L (8-16); CALCIUM 9.6 mg/dL (8.5-10.1); CREATININE - SERUM 1.3 mg/dL (0.6-1.3); POTASSIUM - SERUM 4.6 mmol/L (3.5-5.1)
[2017-07-02 09:00] VITALS: BP 96/54
--- NOTE | 2017-07-02 09:30 | NUR ---
PT SITTING UP IN WC. BP 73/55. PT ASSISTED TO LIE DOWN IN BED. PT BP UP TO 96/54. DR MAN NOTIFIED. MEDS ADJUSTED.
--- NOTE | 2017-07-02 10:25 | NUR ---
PT IN THERAPY GYM. PT AM MEDS ADMINISTERED. PT DENIES NEEDS AT THIS TIME.
--- NOTE | 2017-07-02 14:15 | NUR ---
PT PRN PAIN MEDICATION REQ AND REC'D FOR PAIN LEVEL 7 TO BILAT LOWER LEGS. WCTM.
--- NOTE | 2017-07-02 16:32 | RHP ---
PATIENT: RAFAEL PETTY MEDICAL RECORD: [id number] ACCOUNT: [id number] LOCATION:[facility]1113 : 75 ADMISSION DATE: 06/25/17 REHABILITATION HISTORY AND PHYSICAL EXAMINATION POST ADMISSION PHYSICIAN EXAMINATION Post-admission Physical Examination and History and Physical DATE OF ADMISSION: 06/25/2017 ADMITTING DIAGNOSIS: Urinary tract infection due to Escherichia coli. HISTORY OF PRESENT ILLNESS: The patient admitted to inpatient rehab due to a UTI with positive culture for E. coli. She is a 42-year-old female patient who was admitted for acute mental status changes. She had a onset of blurred vision, weakness on the right-side, excessive nausea and vomiting, dehydration, left upper quadrant abdominal pain, and tenderness. She had reported ongoing nausea and vomiting since having the gastric sleeve done in March along with an 80-pound weight loss since then. 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 She reports loss of clarity of vision throughout the entirety of her left eye like a shade over eye, less on the right for about one and a half week. Since seen on 06/18/2017, she had difficulty walking, feeling that the sensation in bilateral lower extremities, especially the left was not correct and it was reduced. She has got a longstanding history of diabetes and peripheral neuropathy, but feels that this is worse. PAST MEDICAL HISTORY: Includes diabetes, neuropathy, hypertension, asthma, morbid obesity, obstructive sleep apnea that she uses a BiPAP for. She had a lumbar puncture on 06/22/2017, with the results pending including possibly excluded Colon Burroughs variant of GBS or group B strep and also had demyelination lesion per neuro. She was found to have a UTI with culture growing E. coli. She has been receiving IV Solu-Medrol that was felt to be aiding the patient regaining some of her visual activity and help with her weakness. She has been followed by neurology and also general surgery. She also started on IV procalamine for dehydration and malnutrition due to the rapid weight loss and continued nausea and vomiting and stated that she has not been taking any oral medications since the gastric sleeve was placed. She reported fall on 06/23/2017, due to her knees buckling while up in the bathroom and assistance of her , she was independent with ADLs and mobility prior to this recent illness. She is currently set from max assist for ADLs and moderate assist for mobility. She would like to return home with her . Her prior level of functioning are better. COMORBIDITIES: In this patient include diabetes, UTI, anemia, renal insufficiency, leukopenia, gastroesophageal reflux disease, hypertension, morbid obesity, diabetes and chronic asthma, neuropathy, dehydration, intractable nausea and vomiting, recent fall, past tobacco use, and acute visual disturbance. PAST MEDICAL HISTORY: Significant for neuropathy, diabetes, hypertension, asthma and use of BiPAP for obstructive sleep apnea, anxiety, chronic back pain, acid reflux, left knee pain, and a past smoker. PAST SURGICAL HISTORY: Includes gallbladder surgery, knee surgery, HISTORY AND PHYSICAL [id number] RAFAEL PETTY MARICEL times 2. She has had right wrist tendon repair and gastric sleeve done in March 2017. ALLERGIES: No known drug allergies. CURRENT MEDICATIONS: Include Floranex 460 mg daily, Lovenox 30 mg subQ daily, chlorthalidone 12.5 mg daily, Clonidine 0.2 mg daily, Celexa 40 mg daily, Rocephin 1 g q.24 hours, Tekturna 300 mg daily, Requip 0.5 mg t.i.d., Zofran ODT as needed for nausea and vomiting, multivitamin daily, Gaviscon p.r.n. epigastric pain. She is on a low resistant sliding scale. She is on Solu-Medrol 125 mg b.i.d., Leona 5/325 as needed for pain. She is on glucose replacement protocol, Neurontin 300 mg b.i.d., Pepcid 40 mg at bedtime, amlodipine 10 mg b.i.d., and Ventolin updrafts as needed. HABITS: No current alcohol or tobacco use, has a history of tobacco use. FAMILY HISTORY: Noncontributory. SOCIAL HISTORY: As above. The patient hopes to return back home with her . REVIEW OF SYSTEMS: GENERAL: She does complain of diffuse weakness. HEENT: Denies cold, cough, or congestion. CARDIOVASCULAR: Denies chest pain. PHYSICAL EXAMINATION: VITAL SIGNS: Stable, afebrile. GENERAL: An obese female in no distress upon exam. HEENT: Normocephalic and atraumatic. Mucosa moist. NECK: Supple. No lymphadenopathy. LUNGS: Clear at this time. HEART: Regular rate and rhythm. ABDOMEN: Benign. EXTREMITIES: No clubbing, cyanosis or edema. NEUROLOGIC: She is intact mentally, does have diffuse weakness. LABORATORY DATA: White count is 5.1, H&H of 10 and 31 and platelet count was noted to be 305. Sodium is 135, potassium 3.7, BUN and creatinine of 27 and 0.8 and blood sugar is noted to be 139. ASSESSMENT: This 42-year-old female patient admitted to rehab with a working diagnosis of urinary tract infection secondary to Escherichia coli and diffuse debility. The patient has potential to make improvement. We will institute the following multidisciplinary therapies including to, but not limited to physical, occupational, respiratory, speech, nutritional services, prosthetics and orthotics. Given her complex condition, risk for more complications, rehabilitation services cannot be provided at a low level of care such as a fci facility. PLAN: 1. Admit to [facility] rehab for intensive inpatient therapy to include the following disciplines: A. Physical therapy to improve gait, all transfer skills and bed mobility to a modified independent level. HISTORY AND PHYSICAL [id number] RAFAEL PETTY B. Occupational therapy to improve activities of daily living to a modified independent level. C. Case management to assist with discharge planning and placement options. D. Nutrition to assist with nutritional needs. E. Rehabilitation nursing to assist in monitoring the patient's underlying medical conditions and to assist with any type of bowel or bladder management. 2. The patient's current medication and medical care will be continued. 3. The patient will be placed on standard fall precautions. 4. The patient's estimated length of stay is approximately 7-10 days. 5. Discuss this patient during care team staff meeting this week. We will continue to monitor weakness and involve neurology and ID if needed. TRANSINT:[id number] Voice Confirmation ID: [id number] DOCUMENT ID: [id number] YAYA notes whether there has been none or any medical/functional change since admission: - YAYA attests patient continues to be appropriate for IRF: - EVERARDO MAN MD at [id number] CC: [id number] DICTATION DATE: 06/26/17 0903 DECORATIVE ENGRAVER APPRENTICE: 06/26/17 1006 ADM IN [id number] [place] [address]
[2017-07-02 18:15] VITALS: BP 119/67
--- NOTE | 2017-07-02 18:16 | NUR ---
PT EATING DINNER, DENIES NEEDS. WCTM.
--- NOTE | 2017-07-02 19:04 | NUR ---
RECIEVED UP IN BED WITH MOTHER AT BEDSIDE. PLEASANT AND COOPERATIVE. NO C/O VOICED. CALL LIGHT AND OVERBED TABLE IN REACH.
[2017-07-02 19:12] VITALS: BP 119/67
--- NOTE | 2017-07-02 21:00 | NUR ---
RESTING IN BED WITH EYES CLOSED. NO S/S OF DISTRESS OBSERVED. FAMILY AT BEDSIDE. CALL LIGHT AND OVERBED TABLE IN REACH.
--- NOTE | 2017-07-03 00:11 | NUR ---
RESTING IN BED WITH EYES CLOSED. NO S/S OF DISTRESS OBSERVED. CALL LIGHT AND OVERBED TABLE IN REACH AND FAMILY AT BEDSIDE.
--- NOTE | 2017-07-03 03:17 | NUR ---
RESTING IN BED WITH EYES CLOSED. NO S/S OF DISTRESS OBSERVED. CALL LIGHT AND OVERBED TABLE IN REACH.
--- NOTE | 2017-07-03 07:31 | NUR ---
sitting up in bed visiting with mother. denies any needs. alert and oriented x4. no s/sx of distress. call light within reach, bed alarm on and bed in lowest position. will continue to monitor
[2017-07-03 08:00] VITALS: BP 143/68
--- NOTE | 2017-07-03 10:11 | NUR ---
SITTING UP IN W/C WATCHING TV. MOTHER AT BEDSIDE. DENIES ANY NEEDS. C/O SOME DISCOMFORT IN LOWER BACK AND LEGS. PT IS NONCOMPLIANT WITH HER DIET PLAN SHE HAS HER FAMILY BRING IN OUTSIDE FOOD OR GET FOOD FROM THE [place]. FOR EXAMPLE THIS AM HER MOTHER BROUGHT HER EGGS, 2 BISCUITS, AND APPROXIMATELY 6 PIECES OF BURNS AND A FEW SAUSAGE. HER MOTHER ATE OFF HER BREAKFAST TRAY. I HAVE EDUCATED PT ON HER DIET PLAN WELL OTHER STAFF BUT SHE CONTINUES TO BE NONCOMPLIANT.
--- NOTE | 2017-07-03 13:47 | NUR ---
SITTING UP IN BED WATCHING TV. MOTHER AT BEDSIDE. DENIES ANY NEEDS. NO S/SX OF ACUTE DISTRESS. CALL LIGHT AND BEDSIDE TRAY WITHIN REACH. BED ALARM ON AND BED IN LOWEST POSITION. WILL CONTINUE TO MONITOR
--- NOTE | 2017-07-03 14:39 | NUR ---
RESTING QUIETLY IN BED. AT BEDSIDE.
--- NOTE | 2017-07-03 18:38 | NUR ---
LYING IN BED WATCHING TV. MOTHER AT BEDSIDE. DENIES ANY NEEDS. NO S/SX OF ACUTE DISTRESS. CALL LIGHT WITHIN REACH AND BED IN LOWEST POSITION. WILL CONTINUE TO MONITOR
--- NOTE | 2017-07-03 19:50 | NUR ---
REST IN BED AND WATCH TV.
[2017-07-03 22:58] VITALS: BP 142/96
--- NOTE | 2017-07-04 01:25 | NUR ---
RESTING IN BED ON RIGHT SIDE. APPEARS COMFORTABLE. 2 FEMALE FAMILY MEMBERS SLEEPING IN ROOM.
--- NOTE | 2017-07-04 03:24 | NUR ---
REST IN BED, EYE CLOSE, CALL LIGHT IN REACH.
--- NOTE | 2017-07-04 07:27 | NUR ---
LYING IN BED EYES CLOSED RESTING QUIETLY. MOTHER IN BED BEDSIDE PT AND DAUGHTER SLEEPING ON COT. NO S/SX OF ACUTE DISTRESS. CALL LIGHT WITHIN REACH, BED LOW AND BEDSIDE TRAY WITHIN REACH. WILL CONTINUE TO MONITOR
[2017-07-04 08:00] VITALS: BP 111/75
--- NOTE | 2017-07-04 10:49 | NUR ---
SITTING UP IN W/C FAMILY IN ROOM. DENIES ANY NEEDS. CALL LIGHT WITHIN REACH, WATER AT BEDSIDE. WILL CONTINUE TO MONITOR
--- NOTE | 2017-07-04 14:00 | NUR ---
LYING ON SIDE IN BED.CL IN REACH.CL IN REACH.
--- NOTE | 2017-07-04 14:34 | NUR ---
LYING IN BED RESTING. FAMILY AT BEDSIDE. DENIES ANY NEEDS. CALL LIGHT WITHIN REACH, BED LOW, WATER WITHIN REACH. WILL CONTINUE TO MONITOR
--- NOTE | 2017-07-04 19:30 | NUR ---
PT IS RESTING IN BED WATCHING TV. ALERT AND ORIENTED X 4. DENIES ANY PAIN OR DISCOMFORT AT THIS TIME. VSS. NO NEEDS VOICED. SR'S ARE UP X 3 IN BED. CALL LIGHT AND BEDSIDE TABLE ARE WITHIN EASY REACH. MOTHER IS STAYING IN ROOM WITH PT.
[2017-07-04 20:00] VITALS: BP 135/88
--- NOTE | 2017-07-04 20:20 | NUR ---
PT. IN BED WITH HOB UP FOR COMFORT AND IS WATCHING TV. CALL LIGHT WITHIN REACH.
--- NOTE | 2017-07-04 20:50 | NUR ---
RESTING QUIETLY IN BED WITH EYES CLOSED. RESPS ARE EVEN AND UNLABORED. NO ACUTE DISTRESS NOTED.
--- NOTE | 2017-07-05 00:01 | NUR ---
PT IS RESTING QUIETLY IN BED WITH EYES CLOSED. RESPS ARE EVEN AND UNLABORED. NO ACUTE DISTRESS NOTED.
--- NOTE | 2017-07-05 02:48 | NUR ---
PT IS SITTING IN HER WC IN HER ROOM VISITING WITH HER MOTHER. NO NEEDS VOICED.
[2017-07-05 05:51] LABS: BASOPHILS 0.3 % (0-2); EOSINOPHILS 0.1 % (0-7); HEMATOCRIT 33.3 % (36.0-48.0); HEMOGLOBIN 10.5 g/dL (12-16); IMMATURE GRANULOCYTES 0.3 % (0-5); LYMPHOCYTES 30.5 % (15-50); MCH 27.9 pg (26.0-34.0); MCHC 31.5 g/dL (31.0-37.0); MCV 88.6 fL (80.0-100.0); MEAN PLATELET VOLUME 10.8 fL (7.4-10.4); MONOCYTES 6.8 % (2-11); PLATELET COUNT 262 10x3/uL (130-400); RBC 3.76 10x6/uL (4.00-5.40); RDW 18.9 % (11.5-14.5); WBC 7.8 10x3/uL (4.8-10.8)
[2017-07-05 06:03] LABS: ANION GAP 11.2 mmol/L (8-16); CALCIUM 9.4 mg/dL (8.5-10.1); CARBON DIOXIDE 25.9 mmol/L (21.0-32.0); CREATININE - SERUM 1.1 mg/dL (0.6-1.3); POTASSIUM - SERUM 4.1 mmol/L (3.5-5.1)
--- NOTE | 2017-07-05 06:08 | NUR ---
PT RESTING IN BED WITH EYES CLOSED. AWOKE EASILY TO VERBAL STIMULI. FSBS WNL. NO NEEDS VOICED.
--- NOTE | 2017-07-05 07:58 | NUR ---
SITTING UP EATING BREAKFAST. BED IN LOWEST POSITION. CALL LIGHT IN REACH.
[2017-07-05 09:13] VITALS: BP 147/88
--- NOTE | 2017-07-05 10:09 | NUR ---
PATIENT IN REHAB ROOM. WORKING WITH PHYSICAL THERAPIST. DENIES ANY PAIN/DISC AT THIS TIME.
--- NOTE | 2017-07-05 11:33 | NUR ---
GLUCOSE LEVEL 96. NO SLIDING SCALE INSULIN GIVEN PER SLIDING ORDER
--- NOTE | 2017-07-05 14:30 | NUR ---
PRN NORCO GIVEN FOR BILATERAL LEG PAIN PER PATIENT REQUEST
--- NOTE | 2017-07-05 16:55 | NUR ---
GLUCOSE LEVEL 83. NO SLIDING SCALE INSULIN GIVEN
--- NOTE | 2017-07-05 19:29 | NUR ---
PT IS UP IN BATHROOM WITH SBA AT THIS TIME. NO NEEDS VOICED. MOTHER IN ROOM.
[2017-07-05 20:00] VITALS: BP 106/58
--- NOTE | 2017-07-05 22:05 | NUR ---
PT IS RESTING QUIETLY IN BED WITH EYES CLOSED. RESPS ARE EVEN AND UNLABORED. NO ACUTE DISTRRESS NOTED.
--- NOTE | 2017-07-05 23:52 | NUR ---
RESTING IN BED WITH EYES CLOSED.
--- NOTE | 2017-07-06 03:07 | NUR ---
RESTING IN BED WITH EYES CLOSED.
--- NOTE | 2017-07-06 05:36 | NUR ---
RESTING IN BED WITH EYES CLOSED. NO S/S OF DISTRESS OBSERVED. USES CALL LIGHT FOR STAND BY ASSIST TO TOILET. CALL LIGHT AND OVERBED TABLE IN REACH.
--- NOTE | 2017-07-06 07:21 | NUR ---
LYING IN BED RESTING. MOTHER AT BEDSIDE. ALERT AND ORIENTED X4. DENIES ANY NEEDS. C/O DISCOMFORT IN LOWER BACK. NO S/SX OF ACUTE DISTRESS. CALL LIGHT WITHIN REACH, BED LOW AND PERSONAL ITEMS WITHIN REACH. WILL CONTINUE TO MONITOR
[2017-07-06 08:36] VITALS: BP 131/89
--- NOTE | 2017-07-06 11:14 | NUR ---
IN THERAPY GYM FOR PT
--- NOTE | 2017-07-06 14:24 | NUR ---
IN THERAPY GYM WITH LARIANNE. DENIES ANY NEEDS. WILL CONTINUE TO MONITOR
[2017-07-06 20:00] VITALS: BP 120/70
--- NOTE | 2017-07-06 20:00 | NUR ---
PT IS RESTING IN BED WITH EYES OPEN. ALERT AND ORIENTED X 3. DENIES ACUTE DISCOMFORT AT THIS TIME. MOTHER IS AT BEDSIDE. SR'S ARE UP X 3 IN BED. CALL LIGHT AND BEDSIDE TABLE ARE WITHIN EASY REACH.
--- NOTE | 2017-07-06 22:26 | NUR ---
RESTING QUIETLY IN BED WITH EYES CLOSED. RESPS ARE EVEN AND UNLABORED. NO ACUTE DISTRESS NOTED.
--- NOTE | 2017-07-07 02:17 | NUR ---
RESTING IN BED WITH EYES CLOSED. NO S.S OF DISTRESS OBSERVED. LAYING IN BED FLAT ON HER ABDOMEN. CALL LIGHT AND OVERBED TABLE IN REACH.
--- NOTE | 2017-07-07 04:39 | NUR ---
RESTING IN BED WITH EYES CLOSED.
[2017-07-07 07:03] LABS: BASOPHILS 0.3 % (0-2); EOSINOPHILS 0.2 % (0-7); HEMATOCRIT 33.6 % (36.0-48.0); HEMOGLOBIN 10.6 g/dL (12-16); IMMATURE GRANULOCYTES 0.3 % (0-5); LYMPHOCYTES 36.3 % (15-50); MCH 28.2 pg (26.0-34.0); MCHC 31.5 g/dL (31.0-37.0); MCV 89.4 fL (80.0-100.0); MEAN PLATELET VOLUME 10.8 fL (7.4-10.4); NEUTROPHILS 56.9 % (40-80); PLATELET COUNT 261 10x3/uL (130-400); RBC 3.76 10x6/uL (4.00-5.40); RDW 19.7 % (11.5-14.5); WBC 6.5 10x3/uL (4.8-10.8)
[2017-07-07 07:27] LABS: ANION GAP 16.3 mmol/L (8-16); CALCIUM 9.4 mg/dL (8.5-10.1); CARBON DIOXIDE 24.9 mmol/L (21.0-32.0); CREATININE - SERUM 1.4 mg/dL (0.6-1.3); POTASSIUM - SERUM 4.2 mmol/L (3.5-5.1)
[2017-07-07 08:14] VITALS: BP 136/88
--- NOTE | 2017-07-07 09:00 | NUR ---
PT AM MEDS ADMINISTERED. PT DENIES NEEDS AT THIS TIME.
--- NOTE | 2017-07-07 10:15 | NUR ---
NOTIFIED OF PT KNEES BUCKLING WHILE IN THERAPY. PT WAS WITH THERAPIST BEGINNNING TO START STAIR THERAPY WHEN PT'S RT KNEE BUCKLED. TWO THERAPISTS CAUGHT PT RIGHT KNEE WAS HITTING STEP. PT ASSISTED BACK IN TO CHAIR. PT BP TAKEN 47/32. ASSISTED PT BACK TO BED. PT FAMILY NOTIFIED AND NOTIFIED.
--- NOTE | 2017-07-07 10:35 | NUR ---
PT LEGS ELEVATED SINCE RETURNING TO BED. PT BP RECHECKED 92/60. WCTM.
--- NOTE | 2017-07-07 11:00 | NUR ---
PT LEGS HAVE REMAINED ELEVATED. PT BP NOW UP TO 126/78 AND PT STATES SHE FEELS MUCH BETTER AT THIS TIME. WCTM.
--- NOTE | 2017-07-07 12:15 | NUR ---
PT EATING LUNCH, DENIES NEEDS. WCTM.
--- NOTE | 2017-07-07 15:54 | NUR ---
PATIENT DISCHARGING HOME WITH FAMILY 07/08/17. [facility] WILL RESUME OF PATIENT AT HOME. NO NEW DME NEEDED AT THIS TIME. DR. ONEIL 02/16/17 @ 3:00. PATIENT CHOICE FORM FOR HOME HEALTH AND [facility] FORM SIGNED, EXPLAINED AND FILED IN CHART.WILL CONTINUE TO FOLLOW WITH PATIENT UNTIL DISCHARGED
--- NOTE | 2017-07-07 19:04 | NUR ---
PT RESTING IN ROOM, DENIES NEEDS. WCTM.
[2017-07-07 20:10] VITALS: BP 119/80
--- NOTE | 2017-07-07 20:10 | NUR ---
ASSESSMENT PER FLOW SHEET, PT C/O BILATERAL LEG PAIN, REQUESTS PAIN MED, INFORMED PT THAT I WILL BE GETTING MEDS TOGETHER AND I WILL BRING IT WITH ME, PT DENIES FURTHER NEEDS, BED IN LOW POSITION, SIDE RAILS X 2, CALL LIGHT IN REACH, PT'S MOM AT BEDSIDE
--- NOTE | 2017-07-07 20:24 | NUR ---
ADM 2100 MEDS PER MD ORDERS, SEE EMAR, PT DENIES FURTHER NEEDS
--- NOTE | 2017-07-07 21:15 | NUR ---
PT SITTING UP IN WC VISITING WITH MOM, RATES LEG PAIN 5/10, DENIES NEEDS AT THIS TIME
--- NOTE | 2017-07-07 22:06 | NUR ---
PT BACK IN BED, ADM 2200 MED PER MD ORDERS, SEE EMAR, PT DENIES NEEDS AT THIS TIME, BED IN LOW POSITION, SIDE RAILS X 2, CALL LIGHT IN REACH, PT'S MOM AT BEDSIDE
--- NOTE | 2017-07-08 00:09 | NUR ---
PT AWAKE, WATCHING TV, MOM AT BEDSIDE, PT DENIES NEEDS OR PAIN AT THIS TIME, BED IN LOW POSITION, SIDE RAILS X 2, CALL LIGHT IN REACH
--- NOTE | 2017-07-08 02:45 | NUR ---
PT RESTING WITH EYES CLOSED, RESP QUIET, NO DISTRESS NOTED, LEFT UNDISTURBED AT THIS TIME, BED IN LOW POSITION, SIDE RAILS X 2, CALL LIGHT IN REACH, PT'S MOM AT BEDSIDE
--- NOTE | 2017-07-08 04:20 | NUR ---
PT RESTING WITH EYES CLOSED, RESP QUIET, NO DISTRESS NOTED, LEFT UNDISTURBED AT THIS TIME, BED IN LOW POSITION, SIDE RAILS X 2, CALL LIGHT IN REACH, MOM AT BEDSIDE
--- NOTE | 2017-07-08 05:48 | NUR ---
PT ASSOCIATE ACCOUNTANT LIGHT, ADM 0600 MED AND PAIN MED PER MD ORDERS, SEE JENELLE, FSBS 88, PT DENIES FURTHER NEEDS AT THIS TIME, PT'S MOM AT BEDSIDE
--- NOTE | 2017-07-08 06:42 | NUR ---
PT AWAKE, VISITING WITH MOM, RATES PAIN 4/10, DENIES NEEDS AT THIS TIME
--- NOTE | 2017-07-08 06:45 | NUR ---
SHIFT REPORT TO DAY SHIFT
--- NOTE | 2017-07-08 08:09 | NUR ---
PT SITTING UP EATING BREAKFAST, DENIES NEEDS. WCTM.
[2017-07-08] MEDS ORDERED: TEKTURNA150 MG PO (08:33)
[2017-07-08] MEDS ORDERED: HYDROCODON-ACE1 EAC7 PO (08:42)
[2017-07-08 08:52] VITALS: BP 149/91
--- NOTE | 2017-07-08 09:55 | NUR ---
PT AM MEDS ADMINISTERED. PT DENIES NEEDS. WCTM.
--- NOTE | 2017-07-08 11:04 | NUR ---
PT DISCHARGED HOME WITH FAMILY VIA WHEELCHAIR. PT ASSISTED INTO CAR, SEATBELT IN PLACE.
== END 2017-07-08 11:04 | disposition home health service (06) | DRG 690 ==
LOC: D.REHAB 18:33
PROVIDERS: ADMIT Emergency Medicine
DX: N39.0 Urinary tract infection, site not specified (principal); E11.9 Type 2 diabetes mellitus without complications; D64.9 Anemia, unspecified; N28.9 Disorder of kidney and ureter, unspecified; D72.819 Decreased white blood cell count, unspecified; K21.9 Gastro-esophageal reflux disease without esophagitis; I10 Essential (primary) hypertension; E66.01 Morbid (severe) obesity due to excess calories; R53.81 Other malaise; J45.909 Unspecified asthma, uncomplicated; G62.9 Polyneuropathy, unspecified; E86.0 Dehydration; R11.2 Nausea with vomiting, unspecified; H53.9 Unspecified visual disturbance; G47.33 Obstructive sleep apnea (adult) (pediatric); B96.20 Unspecified Escherichia coli [E. coli] as the cause of diseases classified elsewhere; Z68.35 Body mass index [BMI] 35.0-35.9, adult

== ENCOUNTER 2017-09-12 03:08 | Emergency (ER) | payer MEDICARE ==
[~2017-09-12 03:08] MED LIST changes: +TEKTURNA150 MG PO
[2017-09-12 03:50] LABS: BASOPHILS 0.2 % (0-2); EOSINOPHILS 0.1 % (0-7); HEMATOCRIT 37.7 % (36.0-48.0); HEMOGLOBIN 12.4 g/dL (12-16); IMMATURE GRANULOCYTES 0.2 % (0-5); LYMPHOCYTES 38.6 % (15-50); MCH 30.1 pg (26.0-34.0); MCHC 32.9 g/dL (31.0-37.0); MCV 91.5 fL (80.0-100.0); MEAN PLATELET VOLUME 11.5 fL (7.4-10.4); MONOCYTES 7.6 % (2-11); NEUTROPHILS 53.3 % (40-80); PLATELET COUNT 252 10x3/uL (130-400); RBC 4.12 10x6/uL (4.00-5.40); RDW 12.8 % (11.5-14.5)
[2017-09-12 04:04] LABS: ALBUMIN 2.7 g/dL (3.4-5.0); ANION GAP 13.7 mmol/L (8-16); BILIRUBIN - TOTAL 0.25 mg/dL (0.2-1.3); CALCIUM 8.1 mg/dL (8.5-10.1); CARBON DIOXIDE 24.9 mmol/L (21.0-32.0); CREATININE - SERUM 1.1 mg/dL (0.6-1.3); POTASSIUM - SERUM 3.6 mmol/L (3.5-5.1); PROTEIN - SERUM 5.6 g/dL (6.4-8.2)
[2017-09-13] MEDS ORDERED: GAVISCON LIQUI355 ML PO (00:59)
[2017-09-13] MEDS ORDERED: OXYCODONE HCL10 MG PO (01:05)
== END 2017-09-12 08:30 | disposition home or self-care (01) ==
LOC: D.ER 03:08
PROVIDERS: Emergency Medicine
DX: G89.18 Other acute postprocedural pain (principal); I10 Essential (primary) hypertension

== ENCOUNTER 2017-09-12 21:50 | Inpatient (IN) | payer MEDICARE ==
[~2017-09-12] VITALS: Ht 162.6 cm; Wt 81.6 kg
--- NOTE | ~2017-09-12 | OP ---
PATIENT NAME: RAFAEL PETTY MEDICAL RECORD: [id number] :75 LOCATION:[facility] ADMISSION DATE:09/13/17 SURGEON: COLLEEN STEELE MD DATE OF OPERATION: 09/14/2017 SURGEON: Colleen Steele MD PREOPERATIVE DIAGNOSES: 1. Chronic epigastric pain. 2. History of gastric sleeve. POSTOPERATIVE DIAGNOSES: 1. Chronic epigastric pain. 2. History of gastric sleeve. PROCEDURE PERFORMED: Esophagogastroduodenoscopy. ANESTHESIA: Total intravenous anesthesia. COMPLICATIONS: None. SPECIMENS: None. OPERATIVE COURSE: After consent was obtained, the patient was taken to the endoscopy suite, bite block was placed, Hurricaine spray was administered. A total intravenous anesthesia was given. The patient was placed in left lateral decubitus position. A timeout was taken to confirm the correct patient and procedure. The scope was administered. A bite block was passed into the posterior oropharynx. An esophageal sphincter appeared within normal limits, scope was passed into the esophagus under direct endoscopic vision, no abnormalities identified. The patient has no hiatal hernia noted. The scope was easily passed to the gastroesophageal junction. There was some mild esophagitis noted at the GE junction. The sleeve was intact, it was appropriately dilated. The scope was advanced through the sleeve and in the pylorus. Duodenum appeared within normal limits. There was scant distal antritis noted. At this time, the duodenum and stomach were desufflated. The scope was withdrawn and again the esophagus was evaluated. There was no evidence of hiatal hernia. At this time, the scope was removed and procedure was terminated. At the end of the procedure, all needle and instruments counts were correct. No complications occurred. The patient was extubated and the patient was transferred to recovery room in satisfactory condition. TRANSINT:[id number] Voice Confirmation ID: [id number] DOCUMENT ID: [id number] COLLEEN STEELE MD at 0818 CC: [id number] DICTATION DATE: 09/14/171814 PUMP PRESS OPERATOR: 09/14/17 1907 ADM IN [place] [address] [place] [address]
[2017-09-12 23:09] LABS: BASOPHILS 0.2 % (0-2); EOSINOPHILS 0.2 % (0-7); HEMOGLOBIN 12.1 g/dL (12-16); IMMATURE GRANULOCYTES 0.2 % (0-5); MCH 30.3 pg (26.0-34.0); MCHC 32.7 g/dL (31.0-37.0); MCV 92.5 fL (80.0-100.0); MEAN PLATELET VOLUME 11.1 fL (7.4-10.4); MONOCYTES 5.9 % (2-11); NEUTROPHILS 59.5 % (40-80); PLATELET COUNT 216 10x3/uL (130-400); RDW 12.7 % (11.5-14.5); WBC 8.4 10x3/uL (4.8-10.8)
[2017-09-12 23:29] LABS: ALBUMIN 2.5 g/dL (3.4-5.0); ANION GAP 13.2 mmol/L (8-16); BILIRUBIN - TOTAL 0.21 mg/dL (0.2-1.3); CALCIUM 8.2 mg/dL (8.5-10.1); CARBON DIOXIDE 24.4 mmol/L (21.0-32.0); CREATININE - SERUM 1.1 mg/dL (0.6-1.3); POTASSIUM - SERUM 3.6 mmol/L (3.5-5.1); PROTEIN - SERUM 5.3 g/dL (6.4-8.2)
[2017-09-12 23:58] LABS: APPEARANCE CLEAR (CLEAR); BILIRUBIN NEGATIVE (NEGATIVE); COLOR YELLOW (YELLOW); GLUCOSE NEGATIVE (NEGATIVE); KETONE SMALL mg/dL (NEGATIVE); NITRITE NEGATIVE (NEGATIVE); PROTEIN NEGATIVE (NEGATIVE); SPECIFIC GRAVITY 1.015 (1.005-1.020); UROBILINOGEN NORMAL (NORMAL)
[2017-09-13] MEDS ORDERED: GAVISCON LIQUI355 ML PO (00:59)
[2017-09-13] MEDS ORDERED: OXYCODONE HCL10 MG PO (01:05)
[2017-09-13 01:22] VITALS: BP 153/96
[2017-09-13 05:26] VITALS: BP 153/96; BMI 32.3
[2017-09-13 08:31] LABS: BASOPHILS 0.1 % (0-2); EOSINOPHILS 0.1 % (0-7); HEMATOCRIT 34.5 % (36.0-48.0); HEMOGLOBIN 11.4 g/dL (12-16); IMMATURE GRANULOCYTES 0.1 % (0-5); LYMPHOCYTES 27.8 % (15-50); MCH 30.5 pg (26.0-34.0); MCV 92.2 fL (80.0-100.0); MEAN PLATELET VOLUME 11.3 fL (7.4-10.4); MONOCYTES 6.6 % (2-11); NEUTROPHILS 65.3 % (40-80); PLATELET COUNT 222 10x3/uL (130-400); RBC 3.74 10x6/uL (4.00-5.40); RDW 12.7 % (11.5-14.5); WBC 7.4 10x3/uL (4.8-10.8)
[2017-09-13 08:34] VITALS: BP 148/71
[2017-09-13 08:41] LABS: APTT 29.6 SECONDS (22.8-39.4); INR 1.25 (0.85-1.17); PROTIME 15.3 SECONDS (11.6-15.0)
[2017-09-13 08:54] LABS: HEMOGLOBIN A1C 4.4 % (4.8-6.0)
[2017-09-13 09:05] LABS: ALBUMIN 2.1 g/dL (3.4-5.0); ANION GAP 14.2 mmol/L (8-16); BILIRUBIN - TOTAL 0.34 mg/dL (0.2-1.3); CALCIUM 7.9 mg/dL (8.5-10.1); CARBON DIOXIDE 23.5 mmol/L (21.0-32.0); POTASSIUM - SERUM 3.7 mmol/L (3.5-5.1); PRE-ALBUMIN 13.8 mg/dL (18.0-35.7); PROTEIN - SERUM 4.5 g/dL (6.4-8.2); T4 THYROXIN - FREE 0.96 ng/dL (0.76-1.46); THYROID STIMULATING HORMONE 0.56 uIU/mL (0.36-3.74)
[2017-09-13 12:33] VITALS: BP 121/79
[2017-09-13 16:51] VITALS: BP 115/82
[2017-09-13 22:17] VITALS: BP 118/82
[2017-09-14 02:28] VITALS: BP 113/77
[2017-09-14 04:41] VITALS: BP 131/69
[2017-09-14 07:04] LABS: BASOPHILS 0 % (0-2); EOSINOPHILS 0.2 % (0-7); HEMOGLOBIN 11.1 g/dL (12-16); IMMATURE GRANULOCYTES 0.2 % (0-5); LYMPHOCYTES 24.3 % (15-50); MCHC 32.6 g/dL (31.0-37.0); MCV 91.9 fL (80.0-100.0); MEAN PLATELET VOLUME 11.1 fL (7.4-10.4); MONOCYTES 7.4 % (2-11); NEUTROPHILS 67.9 % (40-80); PLATELET COUNT 214 10x3/uL (130-400); RDW 12.7 % (11.5-14.5)
[2017-09-14 07:10] LABS: ANION GAP 14.8 mmol/L (8-16); CARBON DIOXIDE 23.9 mmol/L (21.0-32.0); CREATININE - SERUM 0.9 mg/dL (0.6-1.3); MAGNESIUM - SERUM 1.4 mg/dL (1.8-2.4); POTASSIUM - SERUM 3.7 mmol/L (3.5-5.1)
[2017-09-14 08:26] VITALS: BP 173/105
[2017-09-14 12:27] VITALS: BP 140/98
[2017-09-14 14:26] VITALS: Ht 162.6 cm; Wt 81.6 kg
[2017-09-14 16:51] VITALS: BP 180/122
[2017-09-14 20:51] VITALS: BP 148/98
[2017-09-15 05:53] VITALS: BP 144/97
[2017-09-15 08:44] VITALS: BP 134/80
[2017-09-15 11:53] VITALS: BP 158/108
[2017-09-15 13:13] LABS: THYROGLOBULIN ANTIBODY <1.0 IU/mL (0.0-0.9); THYROID PEROXIDASE ABS 9 IU/mL (0-34)
[2017-09-15 16:17] VITALS: BP 116/68
[2017-09-15 20:00] VITALS: BP 156/90
[2017-09-15 21:16] LABS: ALBUMIN 2.3 g/dL (3.4-5.0); ANION GAP 17.3 mmol/L (8-16); BILIRUBIN - TOTAL 0.35 mg/dL (0.2-1.3); CALCIUM 8.2 mg/dL (8.5-10.1); CARBON DIOXIDE 22.1 mmol/L (21.0-32.0); POTASSIUM - SERUM 3.4 mmol/L (3.5-5.1); PROTEIN - SERUM 4.9 g/dL (6.4-8.2)
[2017-09-16] VITALS (15 sets, daily range): BP systolic 123–187; BP diastolic 77–133
[2017-09-16 10:00] LABS: ALBUMIN 2.6 g/dL (3.4-5.0); ANION GAP 14.1 mmol/L (8-16); BILIRUBIN - TOTAL 0.61 mg/dL (0.2-1.3); CALCIUM 8.5 mg/dL (8.5-10.1); CARBON DIOXIDE 25.3 mmol/L (21.0-32.0); CREATININE - SERUM 0.9 mg/dL (0.6-1.3); POTASSIUM - SERUM 3.4 mmol/L (3.5-5.1); PROTEIN - SERUM 6.1 g/dL (6.4-8.2)
[2017-09-16 20:35] LABS: UDS - AMPHET NEGATIVE QUAL (NEGATIVE); UDS - BARB NEGATIVE QUAL (NEGATIVE); UDS - BENZO NEGATIVE QUAL (NEGATIVE); UDS - COCAINE NEGATIVE QUAL (NEGATIVE); UDS - OPIATE POSITIVE QUAL (NEGATIVE); UDS - PCP NEGATIVE QUAL (NEGATIVE); UDS - THC NEGATIVE QUAL (NEGATIVE)
[2017-09-17] VITALS (20 sets, daily range): BP systolic 101–161; BP diastolic 64–112
[2017-09-17 06:26] LABS: BASOPHILS 0.2 % (0-2); EOSINOPHILS 0.2 % (0-7); HEMATOCRIT 34.4 % (36.0-48.0); HEMOGLOBIN 11.3 g/dL (12-16); MCH 30.1 pg (26.0-34.0); MCHC 32.8 g/dL (31.0-37.0); MCV 91.5 fL (80.0-100.0); MEAN PLATELET VOLUME 10.4 fL (7.4-10.4); MONOCYTES 7.7 % (2-11); NEUTROPHILS 52.9 % (40-80); PLATELET COUNT 248 10x3/uL (130-400); RBC 3.76 10x6/uL (4.00-5.40); RDW 12.7 % (11.5-14.5); WBC 5.9 10x3/uL (4.8-10.8)
[2017-09-17 06:52] LABS: ALBUMIN 2.2 g/dL (3.4-5.0); ANION GAP 12.6 mmol/L (8-16); BILIRUBIN - TOTAL 0.55 mg/dL (0.2-1.3); CALCIUM 8.2 mg/dL (8.5-10.1); CARBON DIOXIDE 26.4 mmol/L (21.0-32.0); CREATININE - SERUM 1.1 mg/dL (0.6-1.3); PROTEIN - SERUM 5.1 g/dL (6.4-8.2)
[2017-09-18 03:09] LABS: VITAMIN A (RETINOL) 29 ug/dL (20-65)
[2017-09-18 08:49] VITALS: BP 159/96
[2017-09-18 12:36] VITALS: BP 132/81
[2017-09-18] MEDS ORDERED: PHENERGAN25 MG/ML IM (14:03)
== END 2017-09-18 17:58 | disposition home or self-care (01) | DRG 391 ==
LOC: D.ER 21:50 → D.MS 09-13 00:01 → D.ICU 09-13 00:01 → D.MS 09-17 21:35
PROVIDERS: Emergency Medicine; Family Medicine; Internal Medicine Nephrology; Internal Medicine Pulmonary Disease; Surgery
PROC: 05HB33Z Insertion of Infusion Device into Right Basilic Vein, Percutaneous Approach (ICD-10-PCS; principal; 2017-09-16)
PROC: B54MZZA Ultrasonography of Right Upper Extremity Veins, Guidance (ICD-10-PCS; 2017-09-16)
DX: K22.4 Dyskinesia of esophagus (principal); J96.01 Acute respiratory failure with hypoxia; J69.0 Pneumonitis due to inhalation of food and vomit; G93.41 Metabolic encephalopathy; M35.1 Other overlap syndromes; J44.1 Chronic obstructive pulmonary disease with (acute) exacerbation; K21.9 Gastro-esophageal reflux disease without esophagitis; R11.2 Nausea with vomiting, unspecified; R10.13 Epigastric pain; R41.0 Disorientation, unspecified; F29 Unspecified psychosis not due to a substance or known physiological condition; E11.9 Type 2 diabetes mellitus without complications; R04.0 Epistaxis; J32.0 Chronic maxillary sinusitis

== ENCOUNTER 2017-11-23 14:30 | Inpatient (IN) | payer MEDICARE ==
[~2017-11-23] VITALS: Ht 162.6 cm; Wt 70.8 kg
--- NOTE | ~2017-11-23 | OP ---
PATIENT NAME: RAFAEL PETTY MEDICAL RECORD: [id number] :75 LOCATION:[facility] ADMISSION DATE:11/24/17 SURGEON: COLLEEN STEELE MD DATE OF OPERATION: 11/24/2017 SURGEON: Colleen Steele MD PREOPERATIVE DIAGNOSES: 1. Severe protein-calorie malnutrition. 2. Wernicke syndrome. 3. History of gastric sleeve. 4. Gastroesophageal reflux disease with hiatal hernia. POSTOPERATIVE DIAGNOSES: 1. Severe protein-calorie malnutrition. 2. Wernicke syndrome. 3. History of gastric sleeve. 4. Gastroesophageal reflux disease with hiatal hernia. PROCEDURES PERFORMED: 1. Laparoscopic recurrent hiatal hernia repair. 2. Laparoscopic jejunostomy tube placement. ANESTHESIA: General. COMPLICATIONS: None. SPECIMENS: None. Case was clean contaminated. ESTIMATED BLOOD LOSS: 50 cc. ANESTHESIA: General. OPERATIVE COURSE: After consent was obtained, the patient was taken to the operating room and placed in the supine position on the operating table. Next, general anesthesia was given via endotracheal intubation after a timeout was performed that confirmed the correct patient and procedure. The abdomen was prepped and draped in typical sterile fashion. Local anesthetic was injected just above the umbilicus. A stab incision was made with 11-blade scalpel. Using an 11-mm bladeless optical trocar, the abdomen was entered under direct laparoscopic vision. Adequate pneumoperitoneum was achieved. The abdominal cavity was inspected. No evidence of bowel injury. No evidence of bleeding. The patient was placed in the steep reverse Trendelenburg position. All remaining trocars were placed, a 5-mm and 12-mm trocar in the right lateral quadrant, 5-mm trocar in the left lateral quadrant and Emmett liver retractor in the subxiphoid position. The left lobe of the liver was elevated to expose the GE junction. Meticulous dissection was performed along the GE junction and diaphragmatic hiatus. The gastrohepatic ligament was opened using the Harmonic Scalpel. The esophagus and stomach were dissected off the diaphragmatic crura. Blunt dissection continued with the Harmonic Scalpel anteriorly and posteriorly and then the circumferential dissection was continued along the left crura and the mediastinum was dissected until approximately 3-4 cm of intra-abdominal OPERATIVE REPORT [id number] RAFAEL PETTY esophagus was obtained. Rusty was applied to the mediastinum. The diaphragmatic hiatus was closed with an 0 polypropylene StrataFix suture. At this time, the upper abdomen was copiously irrigated and suctioned and no evidence of bowel injury. No evidence of bleeding. The Emmett liver retractor was removed. The greater omentum was retracted cephalad. The transverse colon was retracted cephalad exposing the ligament of Treitz. The proximal jejunum was run for approximately 20-30 cm from the ligament of Treitz. At this time, multiple 0 silk sutures were used to suture the proximal jejunum to the anterior abdominal wall in an interrupted fashion. An enterotomy was made and the skin incision was made. The jejunostomy tube was then passed through the anterior abdominal wall through the fascia and the abdominal cavity and it was placed into the enterotomy. The J-tube was advanced. At this time, the additional sutures were placed along the jejunum fixing it to the anterior abdominal wall in a simple interrupted fashion. The jejunostomy balloon was inflated with 10 cc. Jejunostomy tube was affixed to the skin using 2-0 nylon. The abdominal cavity was copiously irrigated and suctioned and the 11 and 12 mm trocars removed. The fascia was closed with 0 Vicryl suture and a Vincenzo-Maura suture passer under direct laparoscopic vision. Again, at this time, all remaining instruments removed. The abdomen was again inspected. No evidence of bowel injury. No evidence of bleeding. The camera was removed. The abdomen was desufflated. Trocars were removed. Skin was closed with 4-0 Monocryl, Mastisol, and Steri-Strips. At the end of the case, all needle and instrument counts were correct. No complications occurred. The patient was extubated and transferred to the PACU in stable condition. TRANSINT:[id number] Voice Confirmation ID: [id number] DOCUMENT ID: [id number] COLLEEN STEELE MD at 0802 CC: [id number] DICTATION DATE: 11/24/171751 GRINDER HARDBOARD: 11/25/17 0139 [facility] [address] [place] [address]
[~2017-11-23 14:30] MED LIST changes: +OXYCODONE HCL10 MG PO; +PHENERGAN25 MG/ML IM
[2017-11-24 10:06] VITALS: BP 141/100; BMI 25.2
[2017-11-24 10:32] LABS: HCG URINE NEGATIVE (NEGATIVE)
[2017-11-24 10:41] LABS: HEMATOCRIT 38.7 % (36.0-48.0); MCH 30.7 pg (26.0-34.0); MCHC 33.6 g/dL (31.0-37.0); MCV 91.5 fL (80.0-100.0); MEAN PLATELET VOLUME 10.1 fL (7.4-10.4); RBC 4.23 10x6/uL (4.00-5.40); WBC 8.4 10x3/uL (4.8-10.8)
[2017-11-24 10:54] LABS: ANION GAP 17.4 mmol/L (8-16); CARBON DIOXIDE 21.4 mmol/L (21.0-32.0); CREATININE - SERUM 1.1 mg/dL (0.6-1.3); POTASSIUM - SERUM 3.8 mmol/L (3.5-5.1)
[2017-11-24 18:39] VITALS: BP 105/69
[2017-11-24 23:00] VITALS: BP 164/114
[2017-11-25] VITALS (7 sets, daily range): BP systolic 105–159; BP diastolic 65–102; Ht 162.6 cm; Wt 70.8 kg
[2017-11-25 04:57] LABS: HEMATOCRIT 38.9 % (36.0-48.0); HEMOGLOBIN 12.9 g/dL (12-16); MCH 30.6 pg (26.0-34.0); MCHC 33.2 g/dL (31.0-37.0); MCV 92.4 fL (80.0-100.0); MEAN PLATELET VOLUME 10.4 fL (7.4-10.4); PLATELET COUNT 571 10x3/uL (130-400); RBC 4.21 10x6/uL (4.00-5.40); RDW 17.4 % (11.5-14.5); WBC 20.9 10x3/uL (4.8-10.8)
[2017-11-25 05:11] LABS: ALBUMIN 2.2 g/dL (3.4-5.0); ANION GAP 22.4 mmol/L (8-16); BILIRUBIN - TOTAL 0.9 mg/dL (0.2-1.3); CALCIUM 8.4 mg/dL (8.5-10.1); CARBON DIOXIDE 16.7 mmol/L (21.0-32.0); POTASSIUM - SERUM 4.1 mmol/L (3.5-5.1)
[2017-11-25 05:13] LABS: CREATININE - SERUM 1.4 mg/dL (0.6-1.3)
[2017-11-25 05:25] LABS: LYMPHOCYTES 7 % (15-50); MONOCYTES 2 % (2-11); NEUTROPHILS 91 % (40-80); PLATELET ESTIMATE INCREASED
[2017-11-26] VITALS: BP 115/74
[2017-11-26 04:00] VITALS: BP 114/70
[2017-11-26 04:23] LABS: CALCIUM 7.8 mg/dL (8.5-10.1); CARBON DIOXIDE 20.8 mmol/L (21.0-32.0); CREATININE - SERUM 1.3 mg/dL (0.6-1.3); MAGNESIUM - SERUM 1.7 mg/dL (1.8-2.4); POTASSIUM - SERUM 3.8 mmol/L (3.5-5.1)
[2017-11-26 04:24] LABS: BASOPHILS 0.1 % (0-2); EOSINOPHILS 0 % (0-7); HEMATOCRIT 28.5 % (36.0-48.0); HEMOGLOBIN 9.3 g/dL (12-16); IMMATURE GRANULOCYTES 0.4 % (0-5); LYMPHOCYTES 22.4 % (15-50); MCH 30.2 pg (26.0-34.0); MCHC 32.6 g/dL (31.0-37.0); MCV 92.5 fL (80.0-100.0); MEAN PLATELET VOLUME 9.6 fL (7.4-10.4); MONOCYTES 6.1 % (2-11); PLATELET COUNT 295 10x3/uL (130-400); RBC 3.08 10x6/uL (4.00-5.40); WBC 10.1 10x3/uL (4.8-10.8)
[2017-11-26 08:08] VITALS: BP 106/70
[2017-11-26 12:57] VITALS: BP 96/60
[2017-11-26] MEDS ORDERED: MORPHINE S10 MG/5 ML PO (15:23)
[2017-11-26 16:37] VITALS: BP 111/76
[2017-11-26 22:00] VITALS: BP 114/74
[2017-11-27] VITALS (10 sets, daily range): BP systolic 104–134; BP diastolic 63–86
[2017-11-27 06:42] LABS: BASOPHILS 0.1 % (0-2); EOSINOPHILS 0.2 % (0-7); IMMATURE GRANULOCYTES 0.2 % (0-5); LYMPHOCYTES 26.5 % (15-50); MCH 30.6 pg (26.0-34.0); MCHC 32.6 g/dL (31.0-37.0); MCV 93.9 fL (80.0-100.0); MEAN PLATELET VOLUME 9.8 fL (7.4-10.4); MONOCYTES 6.5 % (2-11); NEUTROPHILS 66.5 % (40-80); RDW 17.5 % (11.5-14.5)
[2017-11-27 06:44] LABS: ANION GAP 13.6 mmol/L (8-16); CALCIUM 7.7 mg/dL (8.5-10.1); CARBON DIOXIDE 21.9 mmol/L (21.0-32.0); MAGNESIUM - SERUM 1.6 mg/dL (1.8-2.4); POTASSIUM - SERUM 3.5 mmol/L (3.5-5.1)
[2017-11-27 06:46] LABS: HEMOGLOBIN 7.5 g/dL (12-16); PLATELET COUNT 202 10x3/uL (130-400); RBC 2.45 10x6/uL (4.00-5.40)
[2017-11-27 12:49] LABS: APTT 33.3 SECONDS (22.8-39.4); PROTIME 12.8 SECONDS (11.6-15.0)
[2017-11-27 13:53] LABS: HEMATOCRIT 23.3 % (36.0-48.0); HEMOGLOBIN 7.6 g/dL (12-16)
[2017-11-27 23:31] LABS: HEMOGLOBIN 10.6 g/dL (12-16)
[2017-11-28] VITALS: BP 145/95
[2017-11-28 04:00] VITALS: BP 169/107
[2017-11-28 04:13] LABS: BASOPHILS 0.1 % (0-2); EOSINOPHILS 0.5 % (0-7); HEMATOCRIT 31.9 % (36.0-48.0); HEMOGLOBIN 10.4 g/dL (12-16); IMMATURE GRANULOCYTES 0.1 % (0-5); LYMPHOCYTES 24.7 % (15-50); MCH 29.6 pg (26.0-34.0); MCHC 32.6 g/dL (31.0-37.0); MEAN PLATELET VOLUME 9.6 fL (7.4-10.4); MONOCYTES 7.8 % (2-11); NEUTROPHILS 66.8 % (40-80); PLATELET COUNT 223 10x3/uL (130-400); RDW 18.2 % (11.5-14.5); WBC 7.7 10x3/uL (4.8-10.8)
[2017-11-28 04:15] LABS: MCV 90.9 fL (80.0-100.0); RBC 3.51 10x6/uL (4.00-5.40)
[2017-11-28 04:29] LABS: CALC OSMOLALITY 280 mosm/kg (275-300); CALCIUM 7.8 mg/dL (8.5-10.1); CHLORIDE - SERUM 105 mmol/L (98-107); CREATININE - SERUM 0.8 mg/dL (0.6-1.3); GLUCOSE 87 mg/dL (74-106); MAGNESIUM - SERUM 1.7 mg/dL (1.8-2.4); POTASSIUM - SERUM 3.7 mmol/L (3.5-5.1); SODIUM 139 mmol/L (136-145); UREA NITROGEN 25 mg/dL (7-18); eGFR NON AFRICAN AMERICAN 83 mL/min (90-120)
[2017-11-28 07:27] LABS: HEMATOCRIT 32.2 % (36.0-48.0); HEMOGLOBIN 10.8 g/dL (12-16)
[2017-11-28 08:06] VITALS: BP 158/102
[2017-11-28 12:12] VITALS: BP 175/112
== END 2017-11-28 16:15 | disposition home health service (06) | DRG 326 ==
LOC: D.SDCHOLD 11-24 09:01 → D.MS 11-24 09:01 → D.SDCHOLD 11-24 11:00 → D.MS 11-24 18:18
PROVIDERS: Anesthesiology; Internal Medicine Nephrology; Surgery
PROC: 0BQT4ZZ Repair Diaphragm, Percutaneous Endoscopic Approach (ICD-10-PCS; principal; 2017-11-24 11:45)
PROC: 0D1A4Z4 Bypass Jejunum to Cutaneous, Percutaneous Endoscopic Approach (ICD-10-PCS; 2017-11-24 11:45)
DX: K91.2 Postsurgical malabsorption, not elsewhere classified (principal); J18.9 Pneumonia, unspecified organism; E51.2 Wernicke's encephalopathy; D62 Acute posthemorrhagic anemia; K44.9 Diaphragmatic hernia without obstruction or gangrene; K21.9 Gastro-esophageal reflux disease without esophagitis; R13.10 Dysphagia, unspecified; K22.4 Dyskinesia of esophagus; E53.8 Deficiency of other specified B group vitamins; E11.9 Type 2 diabetes mellitus without complications; G47.33 Obstructive sleep apnea (adult) (pediatric); R53.1 Weakness; G25.81 Restless legs syndrome; I10 Essential (primary) hypertension; Z68.26 Body mass index [BMI] 26.0-26.9, adult; E66.09 Other obesity due to excess calories

== ENCOUNTER 2018-01-10 18:04 | Emergency (ER) | payer MEDICARE ==
[2017-11-25 16:44] VITALS: BMI 26.7
[~2018-01-10 18:04] MED LIST changes: +MORPHINE S10 MG/5 ML PO
[2018-01-10 19:09] LABS: BASOPHILS 0.5 % (0-2); EOSINOPHILS 0.4 % (0-7); HEMATOCRIT 38.1 % (36.0-48.0); HEMOGLOBIN 12.9 g/dL (12-16); IMMATURE GRANULOCYTES 0.1 % (0-5); MCHC 33.9 g/dL (31.0-37.0); MCV 94.5 fL (80.0-100.0); MEAN PLATELET VOLUME 10.8 fL (7.4-10.4); MONOCYTES 5.2 % (2-11); NEUTROPHILS 58.8 % (40-80); RBC 4.03 10x6/uL (4.00-5.40); RDW 15.9 % (11.5-14.5); WBC 8.2 10x3/uL (4.8-10.8)
[2018-01-10 19:14] LABS: PLATELET COUNT 336 10x3/uL (130-400)
[2018-01-10 19:30] LABS: ALBUMIN 2.3 g/dL (3.4-5.0); ANION GAP 19.1 mmol/L (8-16); BILIRUBIN - TOTAL 1.17 mg/dL (0.2-1.3); CARBON DIOXIDE 22.8 mmol/L (21.0-32.0); POTASSIUM - SERUM 3.9 mmol/L (3.5-5.1); PROTEIN - SERUM 6.4 g/dL (6.4-8.2)
[2018-01-10 19:52] LABS: AMYLASE - SERUM 24 U/L (25-115); LIPASE 101 U/L (73-393)
[2018-01-10 20:35] LABS: APPEARANCE CLEAR (CLEAR); BILIRUBIN 1+ (NEGATIVE); COLOR DK YELLOW (YELLOW); GLUCOSE NEGATIVE (NEGATIVE); KETONE LARGE mg/dL (NEGATIVE); NITRITE NEGATIVE (NEGATIVE); PROTEIN TRACE mg/dL (NEGATIVE); SPECIFIC GRAVITY 1.025 (1.005-1.020)
[2018-01-10 20:39] LABS: BACTERIA FEW /hpf (NONE SEEN); EPITHELIAL CELLS 0-5 /hpf (0-5); RED CELLS - URINE OCC /hpf (0-5); WHITE CELLS - URINE 0-5 /hpf (0-5)
== END 2018-01-10 22:38 | disposition home or self-care (01) ==
LOC: D.ER 18:04
PROVIDERS: Family Medicine
DX: K59.00 Constipation, unspecified (principal); E86.0 Dehydration; I10 Essential (primary) hypertension

== ENCOUNTER 2018-01-27 18:04 | Emergency (ER) | payer MEDICARE ==
[2017-11-25 16:44] VITALS: BMI 26.7
== END 2018-01-27 22:18 | disposition home or self-care (01) ==
LOC: D.ER 18:04
DX: K59.00 Constipation, unspecified (principal); K56.41 Fecal impaction

== ENCOUNTER 2018-02-01 08:02 | Outpatient (CLI) | payer MEDICARE ==
[2017-11-25 16:44] VITALS: BMI 26.7
== END 2018-02-01 09:20 ==
LOC: D.OPS 08:02
DX: R13.10 Dysphagia, unspecified (principal)

== ENCOUNTER 2018-02-07 05:13 | Inpatient (IN) | payer MEDICARE ==
[~2018-02-07] VITALS: Ht 162.6 cm; Wt 59.0 kg
--- NOTE | ~2018-02-07 | HEMODYNAMI ---
PATIENT:RAFAEL PETTY MEDICAL RECORD: [id number] : 75 [facility] [id number] ADMISSION DATE: 02/07/18 Generatedon:02/08/201811:05 Patient name: RAFAEL PETTY Patient #: [id number] SSN: DO B: 1975 Date of study: 02/08/2018 Page: Of Hemodynamic Procedure Report Patient Data Patient Demographics Procedure consent was obtained First Name: RAFAEL Gender: Female Last Name: MALINDA : 1975 [facility] Initial: MARICEL Age: 42 year(s) Patient #: [id number] Race: Additional ID: [id number] Contact details [address]: [address] [place] [address] State: [place] City: [place] Zip code: [address] Past Medical History History of disease Date Diagnosis Comments CAD Hypertension Diabetes Allergies: No known allergies Admission Admission Data Admission Date: 02/07/2018 Admission Time: 7:43 Room #: D.2209 Height (in.): 64 BSA: 1.63 (m2) Height (cm.): 162.56 BMI: 22.31 (kg/m2) Weight (lbs.): 130 Weight (kg.): 58.97 Procedure Procedure Types Cath Procedure Peripheral Cath Diagnostic Procedure Cath Peripheral Gastric G J Tube Replacement Procedure Description Procedure Date Procedure Date: 02/08/2018 Procedure Start Time: 10:52 Procedure Staff Name Function Danielle Castillo RT Surgical Lead Danielle Castillo RT Monitor Alondra De Anda RN Nurse Oneyda Padron RT Scrub Lyndon Montero MD Performing Physician Procedure Data Cath Procedure Fluoroscopy Diagnostic fluoroscopy Total fluoroscopy Time: 0 time: 0 min min Diagnostic fluoroscopy Total fluoroscopy dose: 1 dose: 1 mGy mGy Contrast Material Contrast Material Type Amount (ml) Isovue 300 15 Hemodynamics Rest BSA: 1.63 (m2) O2 Consumption: Estimated: 221.68 (ml/min) O2 Consumption indexed : Estimated:136 (ml/min/m) Pre Cath Intra NCS Post Cath Procedure Log Time Note 10:32:03 Patient Weight : 130 lbs 10:32:08 Patient Height : 64 inches 10:32:44 Time tracking: Regular hours (M-F 7:00 - 5:00) 10:46:38 Plan of Care:Hemodynamics will remain stable., Cardiac rhythm will remain stable., Comfort level will be maintained., Respiratory function will remain adequate., Patient/ family verbilizes understanding of procedure., Procedure tolerated without complication., Recovers from procedure without complications.. 10:46:49 Patient received from Med/Surg to IR Alert and oriented. Tansferred to table in Supine position. 10:46:54 Signed procedure consent form obtained from patient. 10:47:03 Pre-procedure instructions explained to patient. 10:47:03 Pre-op teaching completed and patient verbalized understanding. 10:47:07 Patient NPO since Midnight. 10:47:17 - 10:47:38 GASTRO-ENTERIC 20Fr Tube ([id number]) opened to sterile field. 10:47:54 Use device set IR Diagnostic 10:47:55 Sterile Angiographic Pack opened to sterile field. 10:47:56 Bag Decanter ([id number]) opened to sterile field. 10:48:07 [facility] .035 145 glide wire ([id number]) opened to sterile field. 10:48:39 Physician arrived 10:51:50 --------ALL STOP TIME OUT------ 10:51:51 Final Timeout: patient, procedure, and site verified with staff and physician. All members of the team are in agreement. 10:51:52 Final Timeout: patient, procedure, and site verified with staff and physician. All members of the team are in agreement. 10:52:02 Procedure started. 10:52:02 Full Disclosure recording started 10:52:10 Local anesthetic to Abdominal area with Lidocaine 1% by Lyndon Montero MD.INITIAL ACCESS ONLY 10:59:29 20 fr gj tube placed 11:00:15 Procedure ended.(Physican Out) 11:00:27 Fluoroscopy time 00.00 minutes. 11:00:38 Fluoroscopy dose: 1 mGy 11:00:38 Flurop Dose total: 1 11:01:57 Contrast amount:Isovue 300 15ml. 11:02:00 Procedure and supply charges have been captured, reviewed, submitted an d are correct. Device Usage Item Name Manufacture Quantity Catalog Hospital Part Current Minim al Lot# / Number Charge Number Stock Stock Serial# Code GASTRO-ENTERIC [employer]ard 1 0110-18 [id number] 18Fr Tube mCASH ([id number]) Sterile Cardinal 1 [id number] 149982 [id number] 5 Angiographic Health Pack Bag Decanter Microtek 1 [id number] 5 () [employer] [facility] 1 [id number] [id number] [id number] 5 [id number] .[id number] 145 glide wire ([id number]) Signature Audit [place] Stage Time Signature Unsigned Intra-Procedure 02/08/2018 Danielle Castillo 11:04:59 AM RT(R) Signatures Monitor : Danielle Castillo RT Signature : Date : Time : [address] [address]
[2018-02-07 06:07] LABS: BASOPHILS 0.3 % (0-2); EOSINOPHILS 0.2 % (0-7); HEMATOCRIT 35.3 % (36.0-48.0); HEMOGLOBIN 12.3 g/dL (12-16); IMMATURE GRANULOCYTES 0.1 % (0-5); LYMPHOCYTES 29.5 % (15-50); MCH 33.1 pg (26.0-34.0); MCHC 34.8 g/dL (31.0-37.0); MCV 94.9 fL (80.0-100.0); MEAN PLATELET VOLUME 10.7 fL (7.4-10.4); MONOCYTES 5.8 % (2-11); NEUTROPHILS 64.1 % (40-80); PLATELET COUNT 282 10x3/uL (130-400); RBC 3.72 10x6/uL (4.00-5.40); RDW 15.1 % (11.5-14.5); WBC 8.7 10x3/uL (4.8-10.8)
[2018-02-07 06:16] LABS: INR 1.1 (0.85-1.17); PROTIME 13.8 SECONDS (11.6-15.0)
[2018-02-07 06:20] LABS: ALBUMIN 2.2 g/dL (3.4-5.0); ANION GAP 10.8 mmol/L (8-16); BILIRUBIN - TOTAL 3.32 mg/dL (0.2-1.3); CALCIUM 8.6 mg/dL (8.5-10.1); CARBON DIOXIDE 28.4 mmol/L (21.0-32.0); CREATININE - SERUM 1.1 mg/dL (0.6-1.3); HCG SERUM NEGATIVE (NEGATIVE); POTASSIUM - SERUM 3.2 mmol/L (3.5-5.1); PROTEIN - SERUM 5.7 g/dL (6.4-8.2)
[2018-02-07 17:05] VITALS: BP 133/96
[2018-02-07 18:10] VITALS: BMI 22.3
[2018-02-07 22:58] VITALS: BP 129/95
[2018-02-08 05:19] LABS: BASOPHILS 0.4 % (0-2); EOSINOPHILS 0.4 % (0-7); HEMATOCRIT 32.7 % (36.0-48.0); HEMOGLOBIN 11.5 g/dL (12-16); IMMATURE GRANULOCYTES 0.1 % (0-5); LYMPHOCYTES 40.7 % (15-50); MCH 33.7 pg (26.0-34.0); MCHC 35.2 g/dL (31.0-37.0); MCV 95.9 fL (80.0-100.0); MEAN PLATELET VOLUME 10.9 fL (7.4-10.4); MONOCYTES 7.1 % (2-11); NEUTROPHILS 51.3 % (40-80); PLATELET COUNT 291 10x3/uL (130-400); RBC 3.41 10x6/uL (4.00-5.40); RDW 15.3 % (11.5-14.5); WBC 9.8 10x3/uL (4.8-10.8)
[2018-02-08 05:39] LABS: ALBUMIN 2.1 g/dL (3.4-5.0); ANION GAP 13.2 mmol/L (8-16); BILIRUBIN - TOTAL 1.16 mg/dL (0.2-1.3); CALCIUM 8.1 mg/dL (8.5-10.1); CREATININE - SERUM 0.9 mg/dL (0.6-1.3); POTASSIUM - SERUM 3.2 mmol/L (3.5-5.1); PROTEIN - SERUM 5.3 g/dL (6.4-8.2)
[2018-02-08 05:40] VITALS: BP 126/98
[2018-02-08 09:20] VITALS: BP 134/103
[2018-02-08 10:37] VITALS: Ht 162.6 cm; Wt 59.0 kg
[2018-02-08 13:15] VITALS: BP 109/80
[2018-02-08 17:01] VITALS: BP 126/85; BP 144/75
[2018-02-08 22:17] VITALS: BP 112/84
[2018-02-09 03:56] VITALS: BP 124/74
[2018-02-09 05:34] LABS: BASOPHILS 0.7 % (0-2); EOSINOPHILS 0.8 % (0-7); HEMATOCRIT 34.4 % (36.0-48.0); HEMOGLOBIN 11.7 g/dL (12-16); IMMATURE GRANULOCYTES 0.3 % (0-5); LYMPHOCYTES 45.9 % (15-50); MCH 33.4 pg (26.0-34.0); MEAN PLATELET VOLUME 10.8 fL (7.4-10.4); NEUTROPHILS 46.3 % (40-80); RDW 15.2 % (11.5-14.5)
[2018-02-09 05:54] LABS: MCV 98.3 fL (80.0-100.0); PLATELET COUNT 232 10x3/uL (130-400); WBC 7.3 10x3/uL (4.8-10.8)
[2018-02-09 06:16] LABS: ALKALINE PHOSPHATASE 157 U/L (46-116); ALT (SGPT) 22 U/L (10-68); CALC OSMOLALITY 279 mosm/kg (275-300); CALCIUM 8.4 mg/dL (8.5-10.1); CARBON DIOXIDE 26.3 mmol/L (21.0-32.0); CHLORIDE - SERUM 107 mmol/L (98-107); CREATININE - SERUM 0.7 mg/dL (0.6-1.3); GLUCOSE 76 mg/dL (74-106); POTASSIUM - SERUM 3.1 mmol/L (3.5-5.1); PROTEIN - SERUM 5.4 g/dL (6.4-8.2); SODIUM 140 mmol/L (136-145); UREA NITROGEN 19 mg/dL (7-18); eGFR NON AFRICAN AMERICAN > 90 mL/min (90-120)
[2018-02-09 12:44] VITALS: BP 105/76
[2018-02-09] MEDS ORDERED: DIFLUCAN PREMIX IV (14:06)
[2018-02-09] MEDS ORDERED: NYSTATIN ORAL SU5 ML PO (14:06)
[2018-02-10 19:12] LABS: LYME WB - IGG P18 AB Absent (()); LYME WB - IGG P23 AB Absent (()); LYME WB - IGG P28 AB Absent (()); LYME WB - IGG P30 AB Absent (()); LYME WB - IGG P39 AB Absent (()); LYME WB - IGG P41 AB Present (()); LYME WB - IGG P45 AB Absent (()); LYME WB - IGG P58 AB Absent (()); LYME WB - IGG P66 AB Absent (()); LYME WB - IGG P93 AB Absent (()); LYME WB - IGG WB INTERP Negative (()); LYME WB - IGM P23 AB Absent (()); LYME WB - IGM P39 AB Absent (()); LYME WB - IGM P41 AB Present (()); LYME WB - IGM WB INTERP Negative (())
== END 2018-02-09 15:52 | disposition home or self-care (01) | DRG 393 ==
LOC: D.ER 05:13 → OBSVTIME 07:43 → D.MS 07:43
PROVIDERS: Family Medicine; Surgery
PROC: 0D2DXUZ Change Feeding Device in Lower Intestinal Tract, External Approach (ICD-10-PCS; 2018-02-08)
PROC: 0D778ZZ Dilation of Stomach, Pylorus, Via Natural or Artificial Opening Endoscopic (ICD-10-PCS; 2018-02-09)
PROC: 0D748ZZ Dilation of Esophagogastric Junction, Via Natural or Artificial Opening Endoscopic (ICD-10-PCS; principal; 2018-02-09 14:00)
DX: K94.13 Enterostomy malfunction (principal); E43 Unspecified severe protein-calorie malnutrition; R13.10 Dysphagia, unspecified; K21.9 Gastro-esophageal reflux disease without esophagitis; E87.6 Hypokalemia; E86.0 Dehydration; K22.4 Dyskinesia of esophagus; E11.65 Type 2 diabetes mellitus with hyperglycemia; I10 Essential (primary) hypertension; G47.33 Obstructive sleep apnea (adult) (pediatric); Z68.22 Body mass index [BMI] 22.0-22.9, adult

== ENCOUNTER 2018-04-29 21:00 | Observation (INO) | payer MEDICARE ==
[~2018-04-29] VITALS: Ht 162.6 cm; Wt 52.3 kg
[~2018-04-29 21:00] MED LIST changes: +DIFLUCAN PREMIX IV; +NYSTATIN ORAL SU5 ML PO
[2018-04-29] MEDS ORDERED: OXYCODONE-APAP1 TAB PO (21:50)
[2018-04-29 23:18] LABS: BASOPHILS 0.3 % (0-2); EOSINOPHILS 0.3 % (0-7); HEMATOCRIT 37.1 % (36.0-48.0); HEMOGLOBIN 12.4 g/dL (12-16); IMMATURE GRANULOCYTES 0.2 % (0-5); LYMPHOCYTES 27.7 % (15-50); MCH 33.7 pg (26.0-34.0); MCHC 33.4 g/dL (31.0-37.0); MCV 100.8 fL (80.0-100.0); MEAN PLATELET VOLUME 10.5 fL (7.4-10.4); MONOCYTES 3.9 % (2-11); NEUTROPHILS 67.6 % (40-80); RBC 3.68 10x6/uL (4.00-5.40); RDW 13.1 % (11.5-14.5); WBC 11.4 10x3/uL (4.8-10.8)
[2018-04-29 23:25] LABS: PLATELET COUNT 357 10x3/uL (130-400)
[2018-04-29 23:49] LABS: ALBUMIN 1.7 g/dL (3.4-5.0); ANION GAP 15.8 mmol/L (8-16); BILIRUBIN - TOTAL 0.61 mg/dL (0.2-1.3); CALCIUM 8.2 mg/dL (8.5-10.1); CARBON DIOXIDE 21.3 mmol/L (21.0-32.0); CREATININE - SERUM 0.9 mg/dL (0.6-1.3); POTASSIUM - SERUM 4.1 mmol/L (3.5-5.1); PROTEIN - SERUM 5.1 g/dL (6.4-8.2)
[2018-04-30 00:01] LABS: APPEARANCE HAZY (CLEAR); COLOR YELLOW (YELLOW); SPECIFIC GRAVITY 1.025 (1.005-1.020)
[2018-04-30 00:02] LABS: BACTERIA MODERATE /hpf (NONE SEEN); BILIRUBIN 2+ (NEGATIVE); EPITHELIAL CELLS 0-5 /hpf (0-5); GLUCOSE NEGATIVE (NEGATIVE); KETONE LARGE mg/dL (NEGATIVE); MUCUS <1+ /lpf (NONE SEEN); NITRITE NEGATIVE (NEGATIVE); PROTEIN NEGATIVE (NEGATIVE); UROBILINOGEN NORMAL (NORMAL); WHITE CELLS - URINE 25-50 /hpf (0-5)
[2018-04-30 02:00] VITALS: BP 131/92
[2018-04-30 05:54] VITALS: BP 115/79
[2018-04-30] MEDS ORDERED: BACTRIM DS TABL1 TAB PO (10:01)
[2018-04-30 10:10] VITALS: Ht 162.6 cm; Wt 52.3 kg
[2018-04-30 12:59] VITALS: BP 125/87
== END 2018-04-30 13:39 | disposition home or self-care (01) ==
LOC: D.ER 21:00 → D.EDHOLD 04-30 01:35 → OBSVTIME 04-30 01:35 → D.MS 04-30 01:35
PROVIDERS: Emergency Medicine
DX: R11.10 Vomiting, unspecified (principal); N39.0 Urinary tract infection, site not specified; J44.9 Chronic obstructive pulmonary disease, unspecified; E11.9 Type 2 diabetes mellitus without complications; Z98.84 Bariatric surgery status; T81.4XXA Infection following a procedure, initial encounter; L03.90 Cellulitis, unspecified

== ENCOUNTER 2018-06-05 14:53 | Inpatient (IN) | payer MEDICARE ==
[~2018-06-05] VITALS: Ht 162.6 cm; Wt 52.2 kg
--- NOTE | ~2018-06-05 | HP ---
PATIENT: RAFAEL BRANNON MEDICAL RECORD: [id number] ACCOUNT: [id number] LOCATION:.[facility].2138 : 75 ADMISSION DATE: 06/05/18 PCP: ZEKE ONEIL DO HISTORY AND PHYSICAL EXAMINATION HISTORY OF PRESENT ILLNESS: Ms. Brannon is a 43-year-old white female who has had multiple medical problems. She was recently diagnosed with multiple sclerosis and is followed by Dr. Coleman as neurologist. She has had a gastric sleeve about a year ago and postoperatively developed symptoms compatible with MS. This has been confirmed with abnormal MRI and lumbar punctures. She has had several hospitalizations for IV steroids, which has improved some of her symptoms. She has had a J-tube for nutritional support during recent stay at rehab. She was told not to use the tube that it was not placed. She comes in today with nausea, vomiting for 10-14 days. She has not been able to keep anything down. She has not been using her J-tube. She has poor IV access. She is going to be placed in observation at this time. We will try to get her rehydrated, assess her J-tube and get a port placed. PAST MEDICAL HISTORY: Significant for recently diagnosed MS, obesity. She has previously been treated for hypertension and diabetes, but she is no longer on meds because of her weight loss of over 140 pounds. PAST SURGICAL HISTORY: Include gastric sleeve, J-tube, gallbladder, section, right wrist tendon repair, ACL. ALLERGIES: None known. MEDICATIONS: She is currently on a fentanyl 12.5 patch, oxycodone 5 q.4 p.r.n., Florinef 0.1 daily, omeprazole 40 mg a day, Ventolin inhaler, trazodone 50 at bedtime p.r.n., and ropinirole 0.5 t.i.d. FAMILY HISTORY: Significant for COPD, diabetes and heart disease. SOCIAL HISTORY: The patient is . She has 2 children. She does not smoke or drink. REVIEW OF SYSTEMS: Significant for nausea, vomiting, upper abdominal pain, chronic hip and low back pain. Significant weight loss of over 140 pounds since gastric sleeve, generalized muscle weakness. PHYSICAL EXAMINATION: GENERAL: A 43-year-old who appears chronically ill. HEENT: Sclerae nonicteric. Poor dentition. NECK: Soft and supple. HEART: Regular. LUNGS: Clear. ABDOMEN: Soft. There is some generalized tenderness. J-tube site looks okay. EXTREMITIES: Lower extremities reveal no edema. NEUROLOGIC: No gross focal deficits. IMPRESSION: 1. Nausea and vomiting. 2. Multiple sclerosis. 3. Clinical dehydration. 4. Lack of vascular access. HISTORY AND PHYSICAL [id number] RAFAEL BRANNON 5. Abdominal pain. 6. Chronic pain. PLAN: Observation, IV fluids, consult Dr. Kendall for placement. See orders for rest of plan. TRANSINT:[id number] Voice Confirmation ID: [id number] DOCUMENT ID: [id number] ZEKE ONEIL DO CC: [id number] DICTATION DATE: 06/05/182025 SOFTWARE TEST MANAGER: 06/05/182111 ADM IN [facility] [address] [place] [id number]
[~2018-06-05 14:53] MED LIST changes: +BACTRIM DS TABL1 TAB PO; +OXYCODONE-APAP1 TAB PO
[2018-06-05 16:03] LABS: BASOPHILS 0.2 % (0-2); EOSINOPHILS 0.2 % (0-7); HEMATOCRIT 42.1 % (36.0-48.0); HEMOGLOBIN 14.5 g/dL (12-16); IMMATURE GRANULOCYTES 0.2 % (0-5); MCH 32.9 pg (26.0-34.0); MCHC 34.4 g/dL (31.0-37.0); MCV 95.5 fL (80.0-100.0); MEAN PLATELET VOLUME 9.9 fL (7.4-10.4); MONOCYTES 6.1 % (2-11); NEUTROPHILS 55.3 % (40-80); PLATELET COUNT 385 10x3/uL (130-400); RBC 4.41 10x6/uL (4.00-5.40); RDW 14.5 % (11.5-14.5); WBC 9.4 10x3/uL (4.8-10.8)
[2018-06-05 16:34] LABS: ALBUMIN 2.2 g/dL (3.4-5.0); ANION GAP 21.9 mmol/L (8-16); BILIRUBIN - TOTAL 0.76 mg/dL (0.2-1.3); CALCIUM 8.7 mg/dL (8.5-10.1); CARBON DIOXIDE 21.9 mmol/L (21.0-32.0); POTASSIUM - SERUM 3.8 mmol/L (3.5-5.1); PROTEIN - SERUM 5.8 g/dL (6.4-8.2)
[2018-06-05 19:30] VITALS: BP 165/105
[2018-06-05 20:01] LABS: APPEARANCE CLEAR (CLEAR); BILIRUBIN NEGATIVE (NEGATIVE); COLOR AMBER (YELLOW); GLUCOSE NEGATIVE (NEGATIVE); KETONE MODERATE mg/dL (NEGATIVE); NITRITE NEGATIVE (NEGATIVE); PROTEIN NEGATIVE (NEGATIVE); SPECIFIC GRAVITY 1.015 (1.005-1.020); UROBILINOGEN NORMAL (NORMAL)
[2018-06-05 20:03] LABS: BACTERIA MANY /hpf (NONE SEEN); CALCIUM OXALATE CRYSTALS 0-5 /hpf (NONE SEEN); MUCUS <1+ /lpf (NONE SEEN); RED CELLS - URINE 0-5 /hpf (0-5)
[2018-06-05 23:57] VITALS: BP 143/100; BMI 19.7
[2018-06-06 01:13] VITALS: BP 138/100
[2018-06-06 05:07] LABS: BASOPHILS 0.2 % (0-2); EOSINOPHILS 0.5 % (0-7); HEMOGLOBIN 11.6 g/dL (12-16); IMMATURE GRANULOCYTES 0.2 % (0-5); LYMPHOCYTES 38.7 % (15-50); MCH 33.2 pg (26.0-34.0); MCV 94.8 fL (80.0-100.0); MONOCYTES 6.4 % (2-11); RDW 14.5 % (11.5-14.5); WBC 8.6 10x3/uL (4.8-10.8)
[2018-06-06 05:15] LABS: HEMATOCRIT 33.1 % (36.0-48.0); PLATELET COUNT 251 10x3/uL (130-400); RBC 3.49 10x6/uL (4.00-5.40)
[2018-06-06 05:34] LABS: INR 1.22 (0.85-1.17)
[2018-06-06 05:36] LABS: ALBUMIN 1.8 g/dL (3.4-5.0); ALKALINE PHOSPHATASE 322 U/L (46-116); BILIRUBIN - TOTAL 0.66 mg/dL (0.2-1.3); CARBON DIOXIDE 22.7 mmol/L (21.0-32.0); CHLORIDE - SERUM 103 mmol/L (98-107); CREATININE - SERUM 0.8 mg/dL (0.6-1.3); POTASSIUM - SERUM 3.9 mmol/L (3.5-5.1); PROTEIN - SERUM 4.5 g/dL (6.4-8.2); SODIUM 142 mmol/L (136-145); UREA NITROGEN 19 mg/dL (7-18); eGFR NON AFRICAN AMERICAN 83 mL/min (90-120)
[2018-06-06 05:42] LABS: ALT (SGPT) 35 U/L (10-68); CALC OSMOLALITY 281 mosm/kg (275-300); GLUCOSE 45 mg/dL (74-106); PRE-ALBUMIN 14.4 mg/dL (18.0-35.7)
[2018-06-06 06:20] VITALS: BP 129/95
[2018-06-06 08:41] VITALS: BP 139/100
[2018-06-06 14:46] VITALS: Ht 162.6 cm; Wt 52.2 kg
[2018-06-06 15:56] VITALS: BP 125/62
[2018-06-06] MEDS ORDERED: PHENERGAN25 M1 PO (15:58)
[2018-06-06] MEDS ORDERED: FENTANYL 12 MCG/HR TRANSDERM (16:09)
[2018-06-06 20:00] VITALS: BP 104/71
[2018-06-07 04:00] VITALS: BP 119/90
[2018-06-07 05:35] LABS: BASOPHILS 0.1 % (0-2); EOSINOPHILS 0.1 % (0-7); HEMATOCRIT 31.1 % (36.0-48.0); HEMOGLOBIN 10.9 g/dL (12-16); IMMATURE GRANULOCYTES 0.1 % (0-5); LYMPHOCYTES 28.4 % (15-50); MCV 94.2 fL (80.0-100.0); MEAN PLATELET VOLUME 10.3 fL (7.4-10.4); MONOCYTES 4.7 % (2-11); NEUTROPHILS 66.6 % (40-80); PLATELET COUNT 294 10x3/uL (130-400); RDW 14.6 % (11.5-14.5); WBC 8.9 10x3/uL (4.8-10.8)
[2018-06-07 05:52] LABS: ANION GAP 11.5 mmol/L (8-16); CALCIUM 7.7 mg/dL (8.5-10.1); CARBON DIOXIDE 25.4 mmol/L (21.0-32.0); CREATININE - SERUM 0.9 mg/dL (0.6-1.3)
[2018-06-07 06:25] LABS: POTASSIUM - SERUM 2.9 mmol/L (3.5-5.1)
[2018-06-07 08:03] VITALS: BP 134/99
[2018-06-07 11:58] VITALS: BP 122/90
[2018-06-07 16:13] VITALS: BP 126/92
[2018-06-07 23:42] VITALS: BP 121/92
[2018-06-08 06:30] LABS: BASOPHILS 0.2 % (0-2); EOSINOPHILS 1.1 % (0-7); HEMATOCRIT 27.8 % (36.0-48.0); HEMOGLOBIN 9.4 g/dL (12-16); IMMATURE GRANULOCYTES 0.2 % (0-5); LYMPHOCYTES 45.1 % (15-50); MCH 32.6 pg (26.0-34.0); MCHC 33.8 g/dL (31.0-37.0); MEAN PLATELET VOLUME 10.3 fL (7.4-10.4); MONOCYTES 7.8 % (2-11); NEUTROPHILS 45.6 % (40-80); RBC 2.88 10x6/uL (4.00-5.40); RDW 14.9 % (11.5-14.5)
[2018-06-08 06:34] VITALS: BP 127/90
[2018-06-08 06:39] LABS: MCV 96.5 fL (80.0-100.0); PLATELET COUNT 163 10x3/uL (130-400); WBC 5.7 10x3/uL (4.8-10.8)
[2018-06-08 06:48] LABS: CALC OSMOLALITY 280 mosm/kg (275-300); CALCIUM 7.6 mg/dL (8.5-10.1); CARBON DIOXIDE 27.8 mmol/L (21.0-32.0); CHLORIDE - SERUM 109 mmol/L (98-107); CREATININE - SERUM 0.8 mg/dL (0.6-1.3); GLUCOSE 82 mg/dL (74-106); POTASSIUM - SERUM 3.6 mmol/L (3.5-5.1); SODIUM 140 mmol/L (136-145); UREA NITROGEN 20 mg/dL (7-18); eGFR NON AFRICAN AMERICAN 83 mL/min (90-120)
[2018-06-08 07:48] VITALS: BP 129/96
[2018-06-08 11:39] VITALS: BP 138/98
[2018-06-08 15:51] VITALS: BP 138/101
[2018-06-08 21:13] VITALS: BP 145/95
[2018-06-09 01:25] VITALS: BP 137/94
[2018-06-09 05:49] LABS: BASOPHILS 0.3 % (0-2); HEMATOCRIT 30.2 % (36.0-48.0); IMMATURE GRANULOCYTES 0.2 % (0-5); LYMPHOCYTES 48.5 % (15-50); MCH 31.8 pg (26.0-34.0); MCHC 33.1 g/dL (31.0-37.0); MCV 96.2 fL (80.0-100.0); MEAN PLATELET VOLUME 10.6 fL (7.4-10.4); MONOCYTES 6.8 % (2-11); NEUTROPHILS 43.2 % (40-80); PLATELET COUNT 184 10x3/uL (130-400); RBC 3.14 10x6/uL (4.00-5.40); RDW 14.9 % (11.5-14.5); WBC 5.9 10x3/uL (4.8-10.8)
[2018-06-09 06:07] VITALS: BP 131/98
[2018-06-09 06:19] LABS: CALC OSMOLALITY 279 mosm/kg (275-300); CALCIUM 7.5 mg/dL (8.5-10.1); CARBON DIOXIDE 25.9 mmol/L (21.0-32.0); CHLORIDE - SERUM 107 mmol/L (98-107); CREATININE - SERUM 0.8 mg/dL (0.6-1.3); GLUCOSE 93 mg/dL (74-106); POTASSIUM - SERUM 3.4 mmol/L (3.5-5.1); SODIUM 139 mmol/L (136-145); UREA NITROGEN 17 mg/dL (7-18); eGFR NON AFRICAN AMERICAN 83 mL/min (90-120)
[2018-06-09] MEDS ORDERED: NORVASC10 MG PO (11:10)
[2018-06-09] MEDS ORDERED: CARAFATE1 G/10 ML PO (11:11)
[2018-06-09 17:05] VITALS: BP 139/105
== END 2018-06-09 20:06 | DRG 641 ==
LOC: D.ER 14:53 → D.EDHOLD 20:24 → D.M2 20:24 → D.SDCHOLD 06-07 08:58 → D.M2 06-09 20:06
PROVIDERS: Emergency Medicine; Family Medicine; Internal Medicine Nephrology; Surgery
PROC: 02HV33Z Insertion of Infusion Device into Superior Vena Cava, Percutaneous Approach (ICD-10-PCS; 2018-06-06)
PROC: B5181ZA Fluoroscopy of Superior Vena Cava using Low Osmolar Contrast, Guidance (ICD-10-PCS; 2018-06-06)
PROC: 0JH63XZ Insertion of Tunneled Vascular Access Device into Chest Subcutaneous Tissue and Fascia, Percutaneous Approach (ICD-10-PCS; principal; 2018-06-06 11:30)
DX: E43 Unspecified severe protein-calorie malnutrition (principal); N17.9 Acute kidney failure, unspecified; N39.0 Urinary tract infection, site not specified; Z68.1 Body mass index [BMI] 19.9 or less, adult; E51.2 Wernicke's encephalopathy; E86.0 Dehydration; R13.19 Other dysphagia; G35 Multiple sclerosis; K22.4 Dyskinesia of esophagus

== ENCOUNTER 2018-06-09 17:16 | Inpatient (IN) | payer MEDICARE ==
[~2018-06-09] VITALS: Ht 162.6 cm; Wt 52.2 kg
--- NOTE | ~2018-06-09 | RHP ---
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 She is a 43-year-old female who presented to the acute hospital with nausea and vomiting for approximately 10 to 14 days and unable to keep anything down. She is found to be clinically dehydrated. She was admitted for nausea and vomiting, clinical dehydration, abdominal pain. She also has chronic pain. She had lack of vascular access. She also has MS, which has been newly diagnosed and she is yet to receive any type of therapy for it. The patient has been continually in and out of hospital for the last couple of months. She has missed some of her appointments with Dr. Coleman. She has had a gastric sleeve about a year ago. Postoperatively, she developed symptoms compatible with MS. This has been confirmed with an MRI and lumbar puncture now. She has had several hospitalizations for IV steroids, which is pretty similar symptoms. She has a J-tube for nutritional support during the recent hospitalization, but was told not to use the tube until it was placed. Therefore, she has not been using her J-tube. She had surgical consult during her acute hospital stay and has had a port in her upper chest area. She is having extreme pain to her lower extremities, radiates down both lower extremities. States that her pain is not under control and believes that maybe some of the symptoms of MS. She has not started any medication regimen for at this time. She states that she has had progressively gotten worse over the last couple of weeks to the point of being unable to ambulate. She is currently having increased pain. She has got a newly started tube without reaching the goal right at this time. She had impaired mobility, self-care deficit. These are all barriers to her going home at this time. She states that she did very well in the past in our acute rehab. Plans to regain her strength and mobility where she can return home with her and kids and hopefully get back to her prior level of functioning if possible. She has had prolonged debility and unable to ambulate, has had muscle wasting and proximal muscle weakness. She was moderately independent with her mobility with use of rolling walker and sometimes a wheelchair at home. She was independent in setting up her ADLs. She is currently set-up for max assist for ADLs and total assist for mobility. COMORBIDITIES: In this patient include nausea and vomiting, multiple sclerosis, clinical dehydration, lack of vascular access, abdominal pain, chronic pain, acute intractable nausea and vomiting, neuropathy, dehydration, esophageal spasm, protein-calorie malnutrition, mechanical dysphagia, history of jejunostomy tube placement, urinary tract infection, generalized weakness, edema secondary to low albumin, protein malnutrition, history of sleeve gastrectomy, Wernicke syndrome, essential hypertension and COPD. PAST MEDICAL HISTORY: Significant for MS, history of obesity in the past, hypertension, diabetes, but she has had no problems with this and some weight loss of over 140 pounds, weakness, trouble swallowing, asthma, anorexia, edema, chronic pain and arthritis. HISTORY AND PHYSICAL [id number] RAFAEL PETTY PAST SURGICAL HISTORY: Includes gastric sleeve, J-tube, gallbladder surgery, , right wrist tendon repair, ACL. ALLERGIES: No known drug allergies. CURRENT MEDICATIONS: Include a Duragesic patch 12 mcg every 3 days, amlodipine 10 mg daily, Carafate suspension 1 gm before every meal and at bedtime, Requip 0.5 mg t.i.d., Phenergan 25 mg every 6 hours p.r.n., Percocet 10/325 one tab every 4 hours p.r.n., Zofran 4 mg every 6 hours p.r.n. She is on morphine solution. She uses 5 mg every 6 hours per PEG as needed. She is on Gaviscon p.r.n., Neurontin 300 mg t.i.d. per PEG, Pepcid 40 mg at bedtime per PEG and albuterol updrafts as needed. HABITS: No current alcohol or tobacco use. FAMILY HISTORY: Noncontributory. SOCIAL HISTORY: The patient hopes to return back home with her family and get back to her prior level of functioning. REVIEW OF SYSTEMS: GENERAL: Does complain of weakness and fatigue. HEENT: Denies cold, cough, or congestion. CARDIOVASCULAR: Denies chest pain. PHYSICAL EXAMINATION: VITAL SIGNS: Stable, afebrile. She is somewhat tachycardic today and does have an elevated diastolic blood pressure, but generally a thin female, in no acute distress upon exam. HEENT: Normocephalic and atraumatic. Mucosa moist. NECK: Supple, with no lymphadenopathy. LUNGS: Clear at this time. No wheezing, rhonchi, or rales. HEART: Has a regular rate and rhythm. She is somewhat tachycardic. ABDOMEN: Soft. She does have a jejunostomy tube in place. EXTREMITIES: She does have no clubbing, cyanosis or edema. NEUROLOGIC: She does have noted weakness. ASSESSMENT: This is a 43-year-old female patient admitted to rehab with a working diagnosis of disuse myopathy complicated by multiple sclerosis and gastric sleeve. The patient has potential to make improvement. We instituted the following multidisciplinary therapies include, but not limited to physical, occupational, respiratory, speech, nutritional services, prosthetics and orthotics. Given her complex medical condition and risk for more complications, rehabilitation services cannot be provided at a low level of care such as a [facility] facility. PLAN: 1. Admit to [facility] rehab for inpatient therapy to include the following disciplines: A. Physical therapy to improve gait, all transfer skills and bed mobility to a modified independent level. B. Occupational therapy to a modified independent level. C. Case management to assist with discharge planning and placement options. D. Nutrition to assist with nutritional needs. HISTORY AND PHYSICAL [id number] RAFAEL PETTY Rehabilitation nursing to assist in monitoring the patient's underlying medical conditions and to assist with any type of bowel or bladder management. 2. The patient's current medication and medical care will be continued. 3. We will watch her pain closely. 4. She has been chronically nauseated and we will probably place her back on Zofran drip, which has been discontinued on the way down here today. 5. We will go ahead and follow up her lab work and treat appropriately. TRANSINT:[id number] Voice Confirmation ID: [id number] DOCUMENT ID: [id number] 06/21/2018 Edited germaine JAVIER notes whether there has been none or any medical/functional change since admission: - No change since pre-admission screens. YAYA attests patient continues to be appropriate for IRF: - Continues to be appropriate. EVERARDO MAN MD at 1812 CC: [id number] DICTATION DATE: 06/10/1835 INTERVENTIONAL TECH: 06/10/18 0901 DIS IN 06/24/18 [id number] [place] [address]
[~2018-06-09 17:16] MED LIST changes: +CARAFATE1 G/10 ML PO; +FENTANYL 12 MCG/HR TRANSDERM; +PHENERGAN25 M1 PO
[2018-06-09 19:00] VITALS: BP 139/108
[2018-06-09 22:03] VITALS: BP 139/108; BMI 19.7
[2018-06-10 08:00] VITALS: BP 123/102
[2018-06-10 09:55] LABS: BASOPHILS 0.2 % (0-2); EOSINOPHILS 0.8 % (0-7); HEMATOCRIT 34.1 % (36.0-48.0); HEMOGLOBIN 11.4 g/dL (12-16); IMMATURE GRANULOCYTES 0.3 % (0-5); LYMPHOCYTES 36.9 % (15-50); MCH 32.4 pg (26.0-34.0); MCHC 33.4 g/dL (31.0-37.0); MCV 96.9 fL (80.0-100.0); MEAN PLATELET VOLUME 10.8 fL (7.4-10.4); MONOCYTES 8.2 % (2-11); NEUTROPHILS 53.6 % (40-80); RBC 3.52 10x6/uL (4.00-5.40); RDW 14.8 % (11.5-14.5)
[2018-06-10 10:00] LABS: PLATELET COUNT 285 10x3/uL (130-400); WBC 8.9 10x3/uL (4.8-10.8)
[2018-06-10 10:10] LABS: CALC OSMOLALITY 269 mosm/kg (275-300); CALCIUM 7.7 mg/dL (8.5-10.1); CARBON DIOXIDE 25.1 mmol/L (21.0-32.0); CHLORIDE - SERUM 105 mmol/L (98-107); CREATININE - SERUM 0.8 mg/dL (0.6-1.3); GLUCOSE 90 mg/dL (74-106); POTASSIUM - SERUM 4.8 mmol/L (3.5-5.1); SODIUM 134 mmol/L (136-145); UREA NITROGEN 19 mg/dL (7-18); eGFR NON AFRICAN AMERICAN 83 mL/min (90-120)
[2018-06-10 14:12] VITALS: Ht 162.6 cm; Wt 52.2 kg
[2018-06-10 19:00] VITALS: BP 121/86
[2018-06-11 08:00] VITALS: BP 140/69
[2018-06-11 12:00] VITALS: BP 140/69
[2018-06-11 20:53] VITALS: BP 138/69
[2018-06-12 10:32] VITALS: BP 108/81
[2018-06-12 21:31] VITALS: BP 117/75
[2018-06-13 06:45] LABS: BASOPHILS 0.2 % (0-2); EOSINOPHILS 0.9 % (0-7); HEMATOCRIT 26.4 % (36.0-48.0); IMMATURE GRANULOCYTES 0.2 % (0-5); LYMPHOCYTES 42.1 % (15-50); MCH 32.8 pg (26.0-34.0); MCHC 34.1 g/dL (31.0-37.0); MCV 96.4 fL (80.0-100.0); MEAN PLATELET VOLUME 10.5 fL (7.4-10.4); MONOCYTES 10.1 % (2-11); NEUTROPHILS 46.5 % (40-80); PLATELET COUNT 263 10x3/uL (130-400); RBC 2.74 10x6/uL (4.00-5.40); RDW 15.5 % (11.5-14.5); WBC 5.7 10x3/uL (4.8-10.8)
[2018-06-13 07:09] LABS: CALC OSMOLALITY 269 mosm/kg (275-300); CALCIUM 7.3 mg/dL (8.5-10.1); CARBON DIOXIDE 28.4 mmol/L (21.0-32.0); CHLORIDE - SERUM 104 mmol/L (98-107); CREATININE - SERUM 0.5 mg/dL (0.6-1.3); GLUCOSE 94 mg/dL (74-106); POTASSIUM - SERUM 4.6 mmol/L (3.5-5.1); SODIUM 134 mmol/L (136-145); UREA NITROGEN 17 mg/dL (7-18); eGFR NON AFRICAN AMERICAN > 90 mL/min (90-120)
[2018-06-13 08:00] VITALS: BP 121/79
[2018-06-13 19:20] VITALS: BP 101/81
[2018-06-14 08:00] VITALS: BP 112/85
[2018-06-14 19:00] VITALS: BP 115/81
[2018-06-15 06:40] LABS: BASOPHILS 0.2 % (0-2); EOSINOPHILS 0.6 % (0-7); HEMOGLOBIN 8.8 g/dL (12-16); IMMATURE GRANULOCYTES 0.2 % (0-5); LYMPHOCYTES 35.9 % (15-50); MCH 32.7 pg (26.0-34.0); MCHC 33.8 g/dL (31.0-37.0); MCV 96.7 fL (80.0-100.0); MEAN PLATELET VOLUME 10.4 fL (7.4-10.4); MONOCYTES 11.2 % (2-11); NEUTROPHILS 51.9 % (40-80); PLATELET COUNT 306 10x3/uL (130-400); RBC 2.69 10x6/uL (4.00-5.40); RDW 16.3 % (11.5-14.5); WBC 5.3 10x3/uL (4.8-10.8)
[2018-06-15 06:51] LABS: CALC OSMOLALITY 270 mosm/kg (275-300); CALCIUM 7.4 mg/dL (8.5-10.1); CARBON DIOXIDE 28.9 mmol/L (21.0-32.0); CHLORIDE - SERUM 104 mmol/L (98-107); CREATININE - SERUM 0.6 mg/dL (0.6-1.3); GLUCOSE 92 mg/dL (74-106); POTASSIUM - SERUM 4.6 mmol/L (3.5-5.1); SODIUM 134 mmol/L (136-145); UREA NITROGEN 20 mg/dL (7-18); eGFR NON AFRICAN AMERICAN > 90 mL/min (90-120)
[2018-06-15 08:00] VITALS: BP 103/76
[2018-06-15 20:31] VITALS: BP 118/83
[2018-06-16 08:00] VITALS: BP 102/80
[2018-06-16 19:00] VITALS: BP 101/69
[2018-06-17 07:06] LABS: BASOPHILS 0 % (0-2); EOSINOPHILS 0.5 % (0-7); HEMATOCRIT 24.4 % (36.0-48.0); HEMOGLOBIN 8.5 g/dL (12-16); IMMATURE GRANULOCYTES 0.2 % (0-5); LYMPHOCYTES 45.3 % (15-50); MCH 33.9 pg (26.0-34.0); MCHC 34.8 g/dL (31.0-37.0); MCV 97.2 fL (80.0-100.0); MEAN PLATELET VOLUME 9.8 fL (7.4-10.4); MONOCYTES 8.9 % (2-11); NEUTROPHILS 45.1 % (40-80); PLATELET COUNT 301 10x3/uL (130-400); RBC 2.51 10x6/uL (4.00-5.40); RDW 17.2 % (11.5-14.5); WBC 4.3 10x3/uL (4.8-10.8)
[2018-06-17 07:28] LABS: CALC OSMOLALITY 269 mosm/kg (275-300); CALCIUM 7.6 mg/dL (8.5-10.1); CARBON DIOXIDE 29.9 mmol/L (21.0-32.0); CHLORIDE - SERUM 104 mmol/L (98-107); CREATININE - SERUM 0.6 mg/dL (0.6-1.3); GLUCOSE 71 mg/dL (74-106); POTASSIUM - SERUM 3.5 mmol/L (3.5-5.1); SODIUM 135 mmol/L (136-145); UREA NITROGEN 18 mg/dL (7-18); eGFR NON AFRICAN AMERICAN > 90 mL/min (90-120)
[2018-06-17 08:00] VITALS: BP 113/85
[2018-06-17 16:09] VITALS: BP 118/76
[2018-06-17 16:26] VITALS: BP 107/65
[2018-06-17 20:15] VITALS: BP 107/72
[2018-06-17 22:30] VITALS: BP 129/94
[2018-06-17 22:50] VITALS: BP 116/90
[2018-06-18 08:00] VITALS: BP 110/79
[2018-06-18 19:20] VITALS: BP 133/95
[2018-06-19 14:02] VITALS: BP 124/81
[2018-06-19 19:05] VITALS: BP 128/95
[2018-06-20 06:30] LABS: BASOPHILS 0.2 % (0-2); EOSINOPHILS 0.6 % (0-7); HEMOGLOBIN 11.1 g/dL (12-16); IMMATURE GRANULOCYTES 0.2 % (0-5); LYMPHOCYTES 34.3 % (15-50); MCHC 33.6 g/dL (31.0-37.0); MCV 95.1 fL (80.0-100.0); MEAN PLATELET VOLUME 9.5 fL (7.4-10.4); MONOCYTES 5.7 % (2-11); PLATELET COUNT 266 10x3/uL (130-400); RBC 3.47 10x6/uL (4.00-5.40); RDW 16.8 % (11.5-14.5); WBC 5.4 10x3/uL (4.8-10.8)
[2018-06-20 06:41] LABS: CALC OSMOLALITY 273 mosm/kg (275-300); CALCIUM 7.6 mg/dL (8.5-10.1); CARBON DIOXIDE 29.4 mmol/L (21.0-32.0); CHLORIDE - SERUM 105 mmol/L (98-107); CREATININE - SERUM 0.5 mg/dL (0.6-1.3); GLUCOSE 82 mg/dL (74-106); POTASSIUM - SERUM 3.7 mmol/L (3.5-5.1); SODIUM 137 mmol/L (136-145); UREA NITROGEN 14 mg/dL (7-18); eGFR NON AFRICAN AMERICAN > 90 mL/min (90-120)
[2018-06-20 08:00] VITALS: BP 122/94
[2018-06-20 19:00] VITALS: BP 118/88
[2018-06-21 08:00] VITALS: BP 124/88
[2018-06-21 19:00] VITALS: BP 115/67
[2018-06-22 06:35] LABS: BASOPHILS 0.2 % (0-2); EOSINOPHILS 0.3 % (0-7); HEMATOCRIT 35.1 % (36.0-48.0); HEMOGLOBIN 11.7 g/dL (12-16); IMMATURE GRANULOCYTES 0.2 % (0-5); LYMPHOCYTES 30.5 % (15-50); MCHC 33.3 g/dL (31.0-37.0); MCV 95.9 fL (80.0-100.0); MEAN PLATELET VOLUME 9.3 fL (7.4-10.4); MONOCYTES 6.9 % (2-11); NEUTROPHILS 61.9 % (40-80); PLATELET COUNT 299 10x3/uL (130-400); RBC 3.66 10x6/uL (4.00-5.40); RDW 16.3 % (11.5-14.5); WBC 6.1 10x3/uL (4.8-10.8)
[2018-06-22 06:47] LABS: ALBUMIN 1.3 g/dL (3.4-5.0); CALC OSMOLALITY 271 mosm/kg (275-300); CALCIUM 7.9 mg/dL (8.5-10.1); CARBON DIOXIDE 30.3 mmol/L (21.0-32.0); CHLORIDE - SERUM 104 mmol/L (98-107); CREATININE - SERUM 0.6 mg/dL (0.6-1.3); PRE-ALBUMIN 11.6 mg/dL (18.0-35.7); SODIUM 137 mmol/L (136-145); UREA NITROGEN 12 mg/dL (7-18); eGFR NON AFRICAN AMERICAN > 90 mL/min (90-120)
[2018-06-22 06:50] LABS: GLUCOSE 70 mg/dL (74-106)
[2018-06-22 08:00] VITALS: BP 161/111
[2018-06-22 22:07] VITALS: BP 110/83
[2018-06-23 08:00] VITALS: BP 141/100
[2018-06-23 19:00] VITALS: BP 108/82
[2018-06-24 07:02] LABS: CALC OSMOLALITY 277 mosm/kg (275-300); CARBON DIOXIDE 29.7 mmol/L (21.0-32.0); CHLORIDE - SERUM 105 mmol/L (98-107); CREATININE - SERUM 0.5 mg/dL (0.6-1.3); GLUCOSE 78 mg/dL (74-106); POTASSIUM - SERUM 3.6 mmol/L (3.5-5.1); SODIUM 140 mmol/L (136-145); UREA NITROGEN 12 mg/dL (7-18); eGFR NON AFRICAN AMERICAN > 90 mL/min (90-120)
[2018-06-24 07:09] LABS: BASOPHILS 0.4 % (0-2); EOSINOPHILS 0.7 % (0-7); HEMATOCRIT 36.3 % (36.0-48.0); IMMATURE GRANULOCYTES 0.3 % (0-5); LYMPHOCYTES 36.6 % (15-50); MCH 32.1 pg (26.0-34.0); MCHC 33.1 g/dL (31.0-37.0); MCV 97.1 fL (80.0-100.0); MEAN PLATELET VOLUME 10.5 fL (7.4-10.4); MONOCYTES 5.5 % (2-11); NEUTROPHILS 56.5 % (40-80); RBC 3.74 10x6/uL (4.00-5.40); RDW 16.2 % (11.5-14.5); WBC 6.7 10x3/uL (4.8-10.8)
[2018-06-24 07:13] LABS: PLATELET COUNT 175 10x3/uL (130-400)
[2018-06-24 08:24] VITALS: BP 112/85
[2018-06-24] MEDS ORDERED: K-DUR20 MEQ PO (08:37)
[2018-06-24] MEDS ORDERED: LASIX20 MG PO (08:37)
[2018-06-24] MEDS ORDERED: Percocet-10 PEG (08:46)
[2018-06-24] MEDS ORDERED: Duragesic TRANSDERM (08:46)
== END 2018-06-24 13:23 | DRG 91 ==
LOC: D.REHAB 17:16
PROVIDERS: Emergency Medicine
DX: G72.89 Other specified myopathies (principal); E43 Unspecified severe protein-calorie malnutrition; E51.2 Wernicke's encephalopathy; N39.0 Urinary tract infection, site not specified; G35 Multiple sclerosis; E86.0 Dehydration; I10 Essential (primary) hypertension; J44.9 Chronic obstructive pulmonary disease, unspecified; R13.19 Other dysphagia; G62.9 Polyneuropathy, unspecified; K22.4 Dyskinesia of esophagus; R53.1 Weakness; R60.9 Edema, unspecified; R11.2 Nausea with vomiting, unspecified; G89.29 Other chronic pain; Z93.4 Other artificial openings of gastrointestinal tract status

== ENCOUNTER 2018-06-30 14:55 | Emergency (ER) | payer MEDICARE ==
[~2018-06-30] VITALS: Ht 162.6 cm; Wt 59.1 kg
--- NOTE | ~2018-06-30 | HEMODYNAMI ---
PATIENT:RAFAEL PETTY MEDICAL RECORD: [id number] : 75 LOCATION:D.[facility] ADMISSION DATE: 06/30/18 Generatedon:06/30/201816:51 Patient name: RAFAEL PETTY Patient #: [id number] SSN: DO B: 1975 Date of study: 06/30/2018 Page: Of Hemodynamic Procedure Report Patient Data Patient Demographics First Name: RAFAEL Gender: Female Last Name: MALINDA : 1975 Middle Initial: MARICEL Age: 43 year(s) Patient #: [id number] Race: Additional ID: [id number] Contact details [address]: [address] [place] [address] State: [place] City: [place] Zip code: [address] Past Medical History History of disease Date Diagnosis Comments CAD Hypertension Diabetes Allergies: No known allergies Admission Admission Data Admission Date: 06/30/2018 Admission Time: 14:55 Weight (lbs.): 150 Weight (kg.): 68.04 Procedure Procedure Types Cath Procedure Peripheral Cath Diagnostic Procedure 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 Peripheral Procedures Gastric G J Tube Replacement Procedure Description Procedure Date Procedure Date: 06/30/2018 Procedure Start Time: 16:39 Procedure Staff Name Function Harrison Jones MD Performing Physician Danielle Castillo RT Security Monitor Alondra De Anda RN Nurse Min Amador RT Scrub Procedure Data Cath Procedure Fluoroscopy Diagnostic fluoroscopy Total fluoroscopy Time: 3.3 time: 3.3 min min Diagnostic fluoroscopy Total fluoroscopy dose: 63 dose: 63 mGy mGy Contrast Material Contrast Material Type Amount (ml) Isovue 300 20 Diagnostic catheters Device Type Used For End Catheter Placement Merit Impress KA2 5Fr 65CM catheter ([id number]) Hemodynamics Rest Pre Cath Intra NCS Post Cath Procedure Log Time Note 16:30:06 Patient Weight : 150 lbs 16:30:33 Time tracking: Call back (After hours or weekends) 16:35:50 Patient received from ED to IR Alert and oriented. Tansferred to table in Supine position. 16:35:54 - 16:36:03 Patient allergic to No known allergies 16:36:09 Physician arrived 16:39:15 --------ALL STOP TIME OUT------ 16:39:16 Final Timeout: patient, procedure, and site verified with staff and physician. All members of the team are in agreement. 16:39:28 Procedure started. 16:39:28 Full Disclosure recording started 16:39:53 Local anesthetic to Abdominal area with Lidocaine 1% by Harrison Jones MD.INITIAL ACCESS ONLY 16:40:43 JEJUNAL 22Fr 45cm Tube ([id number]) opened to sterile field. 16:41:19 A Merit Impress KA2 5Fr 65CM catheter ([id number]) was advanced over the wire and used for . 16:41:29 GLIDE WIRE ANGLE 180cm ([id number]) opened to sterile field. 16:42:37 replaced gj tube with a 20fr sheila 16:45:12 AMPLATZ Super stiff 180cm wire ([id number]) opened to sterile field. 16:49:40 Procedure ended.(Physican Out) 16:49:54 Fluoroscopy time 03.30 minutes. 16:50:06 Fluoroscopy dose: 63 mGy 16:50:06 Flurop Dose total: 63 16:50:11 Contrast amount:Isovue 300 20ml. 16:50:18 Report given to ED. Device Usage Item Name Manufacture Quantity Catalog Hospital Part Current Minimal Lot# / Number Charge Number Stock Stock Serial# Code Zoraida Conway 1 [id number] 5 Impress KA2 Medical 5Fr 65CM catheter ([id number]) GLIDE WIRE Terumo 1 [id number] [id number] 195875 5 ANGLE 180cm ([id number]) JEJUNAL 22Fr Halyard 1 0250-22 [id number] [id number] [id number] 5 45cm Tube EVERFANS ([id number]) AMPLATZ Sheffield 1 [id number] 370461 485933 927542 5 Super stiff Scientific 180cm wire ([id number]) Signature Audit [place] Stage Time Signature Unsigned Intra-Procedure 06/30/2018 Danielle Castillo 4:51:23 PM RT(R) [facility] [address] [place] [address]
[~2018-06-30 14:55] MED LIST changes: +Duragesic TRANSDERM; +K-DUR20 MEQ PO; +LASIX20 MG PO; +Percocet-10 PEG
[2018-06-30 15:00] VITALS: Ht 162.6 cm; Wt 59.1 kg
[2018-06-30 18:27] VITALS: BP 128/74
== END 2018-06-30 17:30 | disposition home or self-care (01) ==
LOC: D.ER 14:55
DX: K94.19 Other complications of enterostomy (principal); G35 Multiple sclerosis; I10 Essential (primary) hypertension; J44.9 Chronic obstructive pulmonary disease, unspecified

== ENCOUNTER 2018-07-19 11:07 | Emergency (ER) | payer MEDICARE ==
[~2018-07-19] VITALS: Ht 162.6 cm; Wt 59.1 kg
[2018-07-19 11:08] VITALS: Ht 162.6 cm; Wt 59.1 kg
[2018-07-19] MEDS ORDERED: LYRICA150 MG PO (11:10)
[2018-07-19] MEDS ORDERED: MYLANTA / MAALO30 ML PO (11:11)
[2018-07-19] MEDS ORDERED: NYSTATIN15 GM TOPICAL (11:12)
[2018-07-19] MEDS ORDERED: CALCIUM 250+D T1 TAB PO (11:13)
[2018-07-19] MEDS ORDERED: ULTRAM50 MG PO (11:14)
[2018-07-19 12:08] LABS: HEMATOCRIT 32.2 % (36.0-48.0); HEMOGLOBIN 10.5 g/dL (12-16); RBC 3.36 10x6/uL (4.00-5.40); WBC 5.4 10x3/uL (4.8-10.8)
[2018-07-19 12:09] LABS: BASOPHILS 0.4 % (0-2); EOSINOPHILS 0.6 % (0-7); LYMPHOCYTES 43.3 % (15-50); MCH 31.3 pg (26.0-34.0); MCHC 32.6 g/dL (31.0-37.0); MCV 95.8 fL (80.0-100.0); MEAN PLATELET VOLUME 9.6 fL (7.4-10.4); MONOCYTES 4.1 % (2-11); NEUTROPHILS 51.4 % (40-80); PLATELET COUNT 217 10x3/uL (130-400); RDW 15.5 % (11.5-14.5)
[2018-07-19 12:10] LABS: IMMATURE GRANULOCYTES 0.2 % (0-5)
[2018-07-19 12:19] LABS: APTT 25.9 SECONDS (22.8-39.4); INR 1.12 (0.85-1.17)
[2018-07-19 12:25] LABS: ALBUMIN 1.4 g/dL (3.4-5.0); ALKALINE PHOSPHATASE 172 U/L (46-116); ALT (SGPT) 24 U/L (10-68); BILIRUBIN - TOTAL 0.21 mg/dL (0.2-1.3); CALC OSMOLALITY 279 mosm/kg (275-300); CALCIUM 7.5 mg/dL (8.5-10.1); CARBON DIOXIDE 26.6 mmol/L (21.0-32.0); CHLORIDE - SERUM 108 mmol/L (98-107); CREATININE - SERUM 0.8 mg/dL (0.6-1.3); GLUCOSE 96 mg/dL (74-106); POTASSIUM - SERUM 3.6 mmol/L (3.5-5.1); PROTEIN - SERUM 4.5 g/dL (6.4-8.2); SODIUM 139 mmol/L (136-145); UREA NITROGEN 19 mg/dL (7-18); eGFR NON AFRICAN AMERICAN 83 mL/min (90-120)
[2018-07-19 12:36] LABS: CKMB 1.1 U/L (0.0-3.6); CREATINE KINASE 19 UL (21-215); MAGNESIUM - SERUM 1.6 mg/dL (1.8-2.4); TROPONIN-I < 0.017 ng/mL (0.000-0.060)
[2018-07-19 16:02] VITALS: BP 100/73
== END 2018-07-19 17:05 | disposition home or self-care (01) ==
LOC: D.ER 11:07
PROVIDERS: Family Medicine
DX: R55 Syncope and collapse (principal); T42.6X5A Adverse effect of other antiepileptic and sedative-hypnotic drugs, initial encounter; Y92.129 Unspecified place in nursing home as the place of occurrence of the external cause; I10 Essential (primary) hypertension; G35 Multiple sclerosis; K21.9 Gastro-esophageal reflux disease without esophagitis

== ENCOUNTER 2018-08-17 13:57 | Emergency (ER) | payer MEDICARE ==
[~2018-08-17] VITALS: Ht 162.6 cm; Wt 56.4 kg
[~2018-08-17 13:57] MED LIST changes: +CALCIUM 250+D T1 TAB PO; +LYRICA150 MG PO; +MYLANTA / MAALO30 ML PO; +NYSTATIN15 GM TOPICAL
[2018-08-17 14:06] VITALS: BP 115/82; Ht 162.6 cm; Wt 56.4 kg
[2018-08-17] MEDS ORDERED: NEURONTIN 300300 MG PO (16:44)
== END 2018-08-17 18:48 | disposition home or self-care (01) ==
LOC: D.ER 13:57
DX: M54.16 Radiculopathy, lumbar region (principal); I10 Essential (primary) hypertension; G35 Multiple sclerosis

== ENCOUNTER 2018-09-16 10:56 | Emergency (ER) | payer MEDICARE ==
[~2018-09-16] VITALS: Ht 162.6 cm; Wt 60.9 kg
[2018-09-16 11:01] VITALS: Ht 162.6 cm; Wt 60.9 kg
[2018-09-16 14:57] VITALS: BP 158/092
== END 2018-09-16 15:00 | disposition home or self-care (01) ==
LOC: D.ER 10:56
DX: R51 Headache (principal); M54.2 Cervicalgia; J44.9 Chronic obstructive pulmonary disease, unspecified; I10 Essential (primary) hypertension; G35 Multiple sclerosis

== ENCOUNTER 2018-09-30 14:25 | Emergency (ER) | payer MEDICARE ==
[~2018-09-30] VITALS: Ht 162.6 cm; Wt 52.3 kg
[2018-09-30 14:27] VITALS: Ht 162.6 cm; Wt 52.3 kg
[2018-09-30 16:48] VITALS: BP 123/87
== END 2018-09-30 16:48 | disposition home or self-care (01) ==
LOC: D.ER 14:25
DX: T82.848A Pain due to vascular prosthetic devices, implants and grafts, initial encounter (principal)

== ENCOUNTER 2018-10-13 11:50 | Emergency (ER) | payer MEDICARE ==
[~2018-10-13] VITALS: Ht 162.6 cm; Wt 52.3 kg
[2018-10-13 11:54] VITALS: Ht 162.6 cm; Wt 52.3 kg
[2018-10-13 12:36] LABS: BASOPHILS 0.5 % (0-2); EOSINOPHILS 0.5 % (0-7); HEMATOCRIT 41.8 % (36.0-48.0); HEMOGLOBIN 13.9 g/dL (12-16); IMMATURE GRANULOCYTES 0.2 % (0-5); LYMPHOCYTES 30.7 % (15-50); MCH 30.9 pg (26.0-34.0); MCHC 33.3 g/dL (31.0-37.0); MCV 92.9 fL (80.0-100.0); MEAN PLATELET VOLUME 10.6 fL (7.4-10.4); MONOCYTES 3.9 % (2-11); NEUTROPHILS 64.2 % (40-80); RDW 12.1 % (11.5-14.5); WBC 6.1 10x3/uL (4.8-10.8)
[2018-10-13 12:38] LABS: PLATELET COUNT 270 10x3/uL (130-400)
[2018-10-13 12:45] LABS: ALBUMIN 3.5 g/dL (3.4-5.0); ALKALINE PHOSPHATASE 90 U/L (46-116); ALT (SGPT) 26 U/L (10-68); BILIRUBIN - TOTAL 0.57 mg/dL (0.2-1.3); CALC OSMOLALITY 280 mosm/kg (275-300); CALCIUM 9.7 mg/dL (8.5-10.1); CARBON DIOXIDE 22.4 mmol/L (21.0-32.0); CHLORIDE - SERUM 101 mmol/L (98-107); CREATININE - SERUM 0.8 mg/dL (0.6-1.3); GLUCOSE 79 mg/dL (74-106); MAGNESIUM - SERUM 1.7 mg/dL (1.8-2.4); POTASSIUM - SERUM 4.2 mmol/L (3.5-5.1); PROTEIN - SERUM 7.5 g/dL (6.4-8.2); SODIUM 139 mmol/L (136-145); UREA NITROGEN 23 mg/dL (7-18); eGFR NON AFRICAN AMERICAN 83 mL/min (90-120)
[2018-10-13] MEDS ORDERED: PHENERGAN25 MG RC (13:16)
[2018-10-13 14:13] VITALS: BP 145/84
== END 2018-10-13 13:58 | disposition home or self-care (01) ==
LOC: D.ER 11:50
PROVIDERS: Emergency Medicine
DX: R11.10 Vomiting, unspecified (principal); R10.9 Unspecified abdominal pain

== ENCOUNTER 2018-10-18 14:35 | Inpatient (IN) | payer MEDICARE ==
[~2018-10-18] VITALS: Ht 162.6 cm; Wt 50.8 kg
[~2018-10-18 14:35] MED LIST changes: +PHENERGAN25 MG RC
[2018-10-18 15:57] LABS: AMYLASE - SERUM 41 U/L (25-115); LIPASE 91 U/L (73-393)
[2018-10-18 16:06] LABS: MAGNESIUM - SERUM 1.3 mg/dL (1.8-2.4); PHOSPHOROUS 3.8 mg/dL (2.5-4.9)
[2018-10-18 17:34] LABS: BASOPHILS 0.4 % (0-2); EOSINOPHILS 1.2 % (0-7); HEMATOCRIT 36.9 % (36.0-48.0); HEMOGLOBIN 12.3 g/dL (12-16); LYMPHOCYTES 38.6 % (15-50); MCH 30.3 pg (26.0-34.0); MCHC 33.3 g/dL (31.0-37.0); MCV 90.9 fL (80.0-100.0); MONOCYTES 5.5 % (2-11); NEUTROPHILS 54.3 % (40-80); PLATELET COUNT 218 10x3/uL (130-400); RBC 4.06 10x6/uL (4.00-5.40); RDW 12.1 % (11.5-14.5); WBC 5.7 10x3/uL (4.8-10.8)
[2018-10-18 17:44] LABS: ALBUMIN 3.3 g/dL (3.4-5.0); ALKALINE PHOSPHATASE 76 U/L (46-116); ALT (SGPT) 23 U/L (10-68); BILIRUBIN - TOTAL 0.53 mg/dL (0.2-1.3); CALC OSMOLALITY 278 mosm/kg (275-300); CALCIUM 8.6 mg/dL (8.5-10.1); CHLORIDE - SERUM 104 mmol/L (98-107); CREATININE - SERUM 0.8 mg/dL (0.6-1.3); GLUCOSE 92 mg/dL (74-106); POTASSIUM - SERUM 4.3 mmol/L (3.5-5.1); PROTEIN - SERUM 6.2 g/dL (6.4-8.2); SODIUM 138 mmol/L (136-145); UREA NITROGEN 22 mg/dL (7-18); eGFR NON AFRICAN AMERICAN 83 mL/min (90-120)
[2018-10-18 18:21] VITALS: BP 153/106; BMI 19.2
[2018-10-18 21:30] VITALS: BP 128/91
[2018-10-19 01:45] VITALS: BP 129/92
[2018-10-19 06:16] VITALS: BP 137/87
[2018-10-19 06:51] LABS: BASOPHILS 0.5 % (0-2); EOSINOPHILS 1.7 % (0-7); HEMATOCRIT 32.6 % (36.0-48.0); HEMOGLOBIN 10.6 g/dL (12-16); LYMPHOCYTES 51.9 % (15-50); MCH 29.9 pg (26.0-34.0); MCHC 32.5 g/dL (31.0-37.0); MCV 91.8 fL (80.0-100.0); MONOCYTES 5.8 % (2-11); NEUTROPHILS 40.1 % (40-80); RBC 3.55 10x6/uL (4.00-5.40); RDW 12.1 % (11.5-14.5)
[2018-10-19 07:11] LABS: PLATELET COUNT 174 10x3/uL (130-400); WBC 4.1 10x3/uL (4.8-10.8)
[2018-10-19 07:16] LABS: ALBUMIN 2.5 g/dL (3.4-5.0); ALKALINE PHOSPHATASE 60 U/L (46-116); ALT (SGPT) 20 U/L (10-68); BILIRUBIN - TOTAL 0.28 mg/dL (0.2-1.3); CALC OSMOLALITY 285 mosm/kg (275-300); CALCIUM 8.1 mg/dL (8.5-10.1); CARBON DIOXIDE 23.8 mmol/L (21.0-32.0); CHLORIDE - SERUM 111 mmol/L (98-107); CREATININE - SERUM 0.6 mg/dL (0.6-1.3); GLUCOSE 85 mg/dL (74-106); LIPASE 68 U/L (73-393); PROTEIN - SERUM 4.9 g/dL (6.4-8.2); SODIUM 143 mmol/L (136-145); UREA NITROGEN 17 mg/dL (7-18); eGFR NON AFRICAN AMERICAN > 90 mL/min (90-120)
[2018-10-19 07:17] LABS: AMYLASE - SERUM 29 U/L (25-115)
--- NOTE | 2018-10-19 08:27 | NUR ---
PT RESTING IN BED WITH EYES OPEN. BRACE ON L SHOULDER. EXPRESSIVE ASPHAGIA NOTED. NO S/S OF ACUTE DISTRESS. CL IN PLACE.
[2018-10-19 09:13] VITALS: BP 154/94
[2018-10-19 12:15] VITALS: BMI 19.2
[2018-10-19 15:16] VITALS: BP 134/89
--- NOTE | 2018-10-19 19:43 | NUR ---
PT HAD TOTAL URINE OUTPUT OF 300ML TODAY. PT ONLY DRANK 360 ML OF LIQUID. NO S/S OF ACUTE DISTRESS. CL IN PLACE.
--- NOTE | 2018-10-19 22:00 | NUR ---
RESTING IN BED RESP UNLABORED EYES CLOSED NO APPARENT DISTRESS CALL LIGHT IN REACH IV INFUSING WITHOUT DIFFICULTY
[2018-10-19 22:22] VITALS: BP 132/90
[2018-10-20] VITALS (7 sets, daily range): BP systolic 101–172; BP diastolic 53–104
[2018-10-20 00:27] LABS: APPEARANCE CLEAR (CLEAR); BILIRUBIN NEGATIVE (NEGATIVE); COLOR YELLOW (YELLOW); GLUCOSE NEGATIVE (NEGATIVE); KETONE NEGATIVE (NEGATIVE); NITRITE NEGATIVE (NEGATIVE); PROTEIN NEGATIVE (NEGATIVE); UROBILINOGEN NORMAL (NORMAL)
[2018-10-20 00:28] LABS: BACTERIA MODERATE /hpf (NONE SEEN); EPITHELIAL CELLS 0-5 /hpf (0-5); RED CELLS - URINE 0-5 /hpf (0-5); WHITE CELLS - URINE 0-5 /hpf (0-5)
--- NOTE | 2018-10-20 08:05 | NUR ---
PT RESTING IN BED, NO ACUTE DISTRESS NOTED. REPORTS PAIN "MANAGEABLE" 01/20. IV TO LEFT CHEST PORT WITH D5NS WITH 20K @ 150 ML/HR INFUSING VIA PUMP. SITE WITHOUT REDNESS OR EDEMA. SCD'S ON BILATERALLY. DENIES FURTHER NEEDS AT THIS TIME. CL WITHIN REACH. ENCOURAGED TO CALL WITH NEEDS. CONTINUE POC
[2018-10-20 08:23] LABS: BASOPHILS 0.7 % (0-2); EOSINOPHILS 0 % (0-7); HEMATOCRIT 38.4 % (36.0-48.0); HEMOGLOBIN 12.5 g/dL (12-16); MCH 30.3 pg (26.0-34.0); MCHC 32.6 g/dL (31.0-37.0); MCV 93.2 fL (80.0-100.0); MEAN PLATELET VOLUME 11.4 fL (7.4-10.4); MONOCYTES 1.3 % (2-11); PLATELET COUNT 200 10x3/uL (130-400); RBC 4.12 10x6/uL (4.00-5.40); RDW 12.2 % (11.5-14.5)
[2018-10-20 08:31] LABS: ALBUMIN 2.7 g/dL (3.4-5.0); ALKALINE PHOSPHATASE 66 U/L (46-116); ALT (SGPT) 24 U/L (10-68); CALCIUM 8.6 mg/dL (8.5-10.1); CHLORIDE - SERUM 111 mmol/L (98-107); CREATININE - SERUM 0.6 mg/dL (0.6-1.3); LIPASE 87 U/L (73-393); MAGNESIUM - SERUM 1.6 mg/dL (1.8-2.4); PROTEIN - SERUM 5.7 g/dL (6.4-8.2); SODIUM 141 mmol/L (136-145); eGFR NON AFRICAN AMERICAN > 90 mL/min (90-120)
[2018-10-20 08:33] LABS: AMYLASE - SERUM 37 U/L (25-115); CALC OSMOLALITY 283 mosm/kg (275-300); GLUCOSE 175 mg/dL (74-106); UREA NITROGEN 11 mg/dL (7-18)
--- NOTE | 2018-10-20 11:15 | NUR ---
PT REPORTS PAIN OF 8/10, GENERALIZED ACHING. MORPHINE ADMINISTERED PER MD ORDERS. DENIES FURTHER NEEDS AT THIS TIME. CL WITHIN REACH. WILL CONTINUE TO MONITOR.
--- NOTE | 2018-10-20 13:30 | NUR ---
PT RESTING IN BED. NO ACUTE DISTRESS NOTED AT THIS TIME. DENIES NAUSEA. CL WITHIN REACH. ENCOURAGED TO CALL WITH NEEDS.
--- NOTE | 2018-10-20 16:09 | NUR ---
SPOKE WITH PT REGARDING PLACING F/C FOR STRICT OUTPUT AND PT VOICING ONLY VOIDING ONCE TODAY. WHEN SPEAKING WITH PT, PT VOICES HAVING VOIDED TWICE TODAY, ONCE 30 MINUTES EARLIER AND "IT WAS A LOT". PLEASE CALL THE DR BACK AND LET HER KNOW THAT IF I DO NOT GO ANY MORE THAT I WILL LET YOU PUT THE F/C IN, IN THE MORNING, BUT I THINK THAT I AM REHYDRATING NOW AND DONT NEED IT." INSTRUCTED PT OF STRICT I&O'S AND THE NEED TO KNOW ALL LIQUIDS CONSUMED BY MOUTH, PLACED A URINE HAT IN COMMODE FOR ACCURATE MEASUREMENT OF URINE. INSTRUCTED PT TO NOTIFY STAFF WHEN VOIDED SO THAT ACCURATE MEASUREMENT COULD BE MADE. PT VOICES UNDERSTANDING.
--- NOTE | 2018-10-20 18:14 | NUR ---
ENTERED PTS ROOM. SPOUSE AT BEDSIDE. PT CONSUMED FULL LIQUID MEAL FROM DIETARY, ALSO CONSUMING BY MOUTH POTATO CHIPS AND DECKER DIP. REMINDED PT OF FULL LIQUID ORDER, PT STATES "I DON'T CARE I AM HUNGRY"
--- NOTE | 2018-10-20 20:00 | NUR ---
ALERT SITTING UP IN BED REPORTS NO N/V JUST GENERALIZED PAIN REQUESTING PAIN MEDICATION WILL GIVE ORDERED, CALL LIGHT IN REACH
--- NOTE | 2018-10-20 22:50 | NUR ---
SITTING UP ON SIDE OF BED C/O GENERALIZED PAIN 9 OUT OF 10, PEROCET GIVEN [id number], AT 2250 PT SITTING UP IN BED EATING CHIPS AND SALSA, INSTRUCTED THAT WAS ON FULL LIQUID DIET STATES I DONT CARE IM HUNGERY
[2018-10-21] VITALS (8 sets, daily range): BP systolic 98–144; BP diastolic 65–104; Ht 162.6 cm; Wt 50.8 kg
[2018-10-21 06:18] LABS: BASOPHILS 0.1 % (0-2); EOSINOPHILS 0 % (0-7); HEMATOCRIT 37.4 % (36.0-48.0); HEMOGLOBIN 11.9 g/dL (12-16); IMMATURE GRANULOCYTES 0.3 % (0-5); LYMPHOCYTES 23.4 % (15-50); MCH 30.1 pg (26.0-34.0); MCHC 31.8 g/dL (31.0-37.0); MCV 94.7 fL (80.0-100.0); MEAN PLATELET VOLUME 10.8 fL (7.4-10.4); MONOCYTES 4.1 % (2-11); NEUTROPHILS 72.1 % (40-80); PLATELET COUNT 227 10x3/uL (130-400); RBC 3.95 10x6/uL (4.00-5.40); RDW 12.4 % (11.5-14.5)
[2018-10-21 06:20] LABS: WBC 10.4 10x3/uL (4.8-10.8)
[2018-10-21 06:39] LABS: ALBUMIN 2.6 g/dL (3.4-5.0); ALKALINE PHOSPHATASE 78 U/L (46-116); ALT (SGPT) 22 U/L (10-68); BILIRUBIN - TOTAL 0.15 mg/dL (0.2-1.3); CALCIUM 8.5 mg/dL (8.5-10.1); CARBON DIOXIDE 16.8 mmol/L (21.0-32.0); CHLORIDE - SERUM 114 mmol/L (98-107); CREATININE - SERUM 0.7 mg/dL (0.6-1.3); LIPASE 136 U/L (73-393); MAGNESIUM - SERUM 1.9 mg/dL (1.8-2.4); POTASSIUM - SERUM 5.7 mmol/L (3.5-5.1); PROTEIN - SERUM 5.6 g/dL (6.4-8.2); SODIUM 141 mmol/L (136-145); eGFR NON AFRICAN AMERICAN > 90 mL/min (90-120)
[2018-10-21 06:42] LABS: AMYLASE - SERUM 54 U/L (25-115); CALC OSMOLALITY 279 mosm/kg (275-300); GLUCOSE 114 mg/dL (74-106); UREA NITROGEN 8 mg/dL (7-18)
--- NOTE | 2018-10-21 07:55 | NUR ---
PT SITTING UP IN BED. NO ACUTE DISTRESS NOTED. REPORTS PAIN 9/10 AT THIS TIME, GENERALIZED ACHING, REQUESTING PAIN MEDICATION. MORPHINE 2MG ADMINISTERED PER MD ORDERS. IV TO LEFT CHEST WITH D5NS WITH 20K @ 150ML/HR INFUSING VIA PUMP. SITE WITHOUT REDNESS OR EDEMA. SCD'S ON BILATERAL LOWER EXTREMITIES. DENIES FURTHER NEEDS AT THIS TIME. CL WITHIN REACH. ENCOURAGED TO CALL WITH NEEDS. CONTINUE POC
--- NOTE | 2018-10-21 10:00 | NUR ---
PT RESTING QUIETLY IN BED TALKING ON HER PHONE. NO ACUTE DISTRESS NOTED AT THIS TIME. CL WITHIN REACH. WILL CONTINUE TO MONITOR.
[2018-10-21 10:23] LABS: CALC OSMOLALITY 278 mosm/kg (275-300); CALCIUM 8.7 mg/dL (8.5-10.1); CARBON DIOXIDE 18.4 mmol/L (21.0-32.0); CHLORIDE - SERUM 114 mmol/L (98-107); GLUCOSE 97 mg/dL (74-106); SODIUM 141 mmol/L (136-145); UREA NITROGEN 8 mg/dL (7-18)
[2018-10-21 10:27] LABS: CREATININE - SERUM 0.5 mg/dL (0.6-1.3); eGFR NON AFRICAN AMERICAN > 90 mL/min (90-120)
[2018-10-21 10:28] LABS: POTASSIUM - SERUM 7.1 mmol/L (3.5-5.1)
--- NOTE | 2018-10-21 12:03 | NUR ---
NUTRITION F/U CHART REVIEWED. DIET NOW ADVANCED TO SOFT TOLERATED. WILL PROVIDE DIET, MONITOR INTAKE. RD FOLLOWING
[2018-10-21 15:02] LABS: CALCIUM 8.4 mg/dL (8.5-10.1); CHLORIDE - SERUM 111 mmol/L (98-107); CREATINE KINASE 38 UL (21-215); SODIUM 139 mmol/L (136-145); UREA NITROGEN 9 mg/dL (7-18)
[2018-10-21 15:03] LABS: CALC OSMOLALITY 279 mosm/kg (275-300); CREATININE - SERUM 0.7 mg/dL (0.6-1.3); GLUCOSE 148 mg/dL (74-106); eGFR NON AFRICAN AMERICAN > 90 mL/min (90-120)
[2018-10-21 15:07] LABS: POTASSIUM - SERUM 6.3 mmol/L (3.5-5.1)
--- NOTE | 2018-10-21 15:37 | MORECARE ---
CASE MANAGEMENT DISCHARGE SUMMARY PATIENT: RAFAEL PETTY MARICEL UNIT: [id number] ADM DATE: 10/19/18 AGE: 43 : 75 SEX: F ROOM/BED: D.2207 AUTHOR: ROBERTO CRISTOBAL PHYSICIAN: REFERRING PHYSICIAN: CHAYO MURPHY DO DATE OF SERVICE: 10/21/18 Discharge Plan Patient Name: RAFAEL PETTY Facility: [facility]:[place] : 1975 Planned Disposition: Home with Home Health Anticipated Discharge Date: Discharge Date: Expected LOS: Initial Reviewer: [email or web address] Initial Review Date: 10/18/2018 Generated: 10/21/18 4:37 pm Comments DCP- Discharge Planning Updated by [email or web address]: Krista Sanchez on 10/21/18 2:[address] Patient Name: RAFAEL PETTY Admission Status: Urgent Accout number: [id number] Admission Date: 10-19-2018 : 1975 Admission Diagnosis:NAUSEA WITH VOMITING, UNSPECIFIED Attending: CHAYO MURPHY Current LOS: 2 Anticipated DC Date: Planned Disposition: Home with Home Health Primary Insurance: MEDICARE A & B Discharge Planning Comments: CM met with patient to assess discharge planning needs. Patient lives with her family and plans to return there at discharge. Her will be the one to drive her home when she is ready. She stated that she is independent with her care at home. She has a walker, wheelchair, shower chair, and BSC at home. She is current with [facility] out of [place]. CM will continue to follow and assist with DC planning as needed. She feels safe to return home at DC Hanger: Krista Sanchez DCPIA - Discharge Planning Initial Assessment Updated by [email or web address]: Krista Sanchez on 10/21/18 3:34 pm * Is the patient Alert and Oriented? Yes * How many steps to enter\exit or inside your home? * PCP [facility] * Pharmacy [facility] * Preadmission Environment Home with Family * ADLs Independent * Equipment Bedside Commode Elevated [place] Seat Rolling Walker Shower Chair Wheelchair * List name and contact numbers for known caregivers / representatives who currently or will assist patient after discharge: HALLIE () [phone] * Verbal permission to speak to the caregivers and representatives has been obtained from the patient. N/A * Community resources currently utilized Home Health * Please name any agencies selected above. [facility] OUT OF [place] * Additional services required to return to the preadmission environment? No * Can the patient safely return to the preadmission environment? Yes * Has this patient been hospitalized within the prior 30 days at any hospital? No Patient Name: RAFAEL PETTY Page [id number] at 1537 All edits/amendments must be made on the electronic document DICTATION DATE: 10/21/18 1536 QA CONSULTANT: MELANY 10/21/18 1536 RPT#: [id number] DC DATE: STATUS: ADM IN [facility] [address] [place] [address] END OF REPORT
[2018-10-21 16:28] LABS: POTASSIUM - URINE 16.2 MMOL/L (12.0-62.0)
--- NOTE | 2018-10-21 19:34 | NUR ---
BED LOW AND SRX2 AND CALL LIGHT IS IN PLACE...ALERT AND ORIENTED STILL RANKS PAIN A 6...LAUGHING AND TELLING JOKES AT THIS TIME LCTA SKIN WARM AND DRY..DURIGESIC PATCH IN PLACE LEFT CHEST PORT WITH ACESSED IV AT 100 D5 AND SODIUM BICARB
--- NOTE | 2018-10-21 23:47 | NUR ---
THE PATIENT IS AWAKE AND WATCHING TELEVISION WHEN STAFF ENTERS HIS AREA. BED IN LOW POSITION WITH SIDERAILS X2 AND CALL LIGHT WITHIN REACH. THE PATIENT APPEARS COMFORTABLE WITH NO QUESTIONS OR CONCERNS AT THIS TIME.
--- NOTE | 2018-10-22 03:33 | NUR ---
AWOKE DURING VITAL SIGNS AND COMPLAINT OF PAIN AT A 10...PERCOCET GIVEN
[2018-10-22 04:00] VITALS: BP 173/85
[2018-10-22 06:06] LABS: BASOPHILS 0 % (0-2); EOSINOPHILS 0 % (0-7); HEMATOCRIT 33.6 % (36.0-48.0); HEMOGLOBIN 10.7 g/dL (12-16); IMMATURE GRANULOCYTES 0.3 % (0-5); MCH 30.4 pg (26.0-34.0); MCHC 31.8 g/dL (31.0-37.0); MCV 95.5 fL (80.0-100.0); MEAN PLATELET VOLUME 10.8 fL (7.4-10.4); MONOCYTES 2.3 % (2-11); NEUTROPHILS 82.4 % (40-80); RBC 3.52 10x6/uL (4.00-5.40); RDW 12.6 % (11.5-14.5)
[2018-10-22 06:10] LABS: PLATELET COUNT 177 10x3/uL (130-400); WBC 6.2 10x3/uL (4.8-10.8)
[2018-10-22 06:48] LABS: ALBUMIN 2.3 g/dL (3.4-5.0); ALKALINE PHOSPHATASE 77 U/L (46-116); ALT (SGPT) 19 U/L (10-68); AMYLASE - SERUM 47 U/L (25-115); BILIRUBIN - TOTAL 0.14 mg/dL (0.2-1.3); CALCIUM 8.2 mg/dL (8.5-10.1); CHLORIDE - SERUM 108 mmol/L (98-107); CREATININE - SERUM 0.8 mg/dL (0.6-1.3); GLUCOSE 123 mg/dL (74-106); LIPASE 84 U/L (73-393); POTASSIUM - SERUM 5.4 mmol/L (3.5-5.1); SODIUM 142 mmol/L (136-145); eGFR NON AFRICAN AMERICAN 83 mL/min (90-120)
[2018-10-22 06:50] LABS: CALC OSMOLALITY 285 mosm/kg (275-300); CARBON DIOXIDE 25.9 mmol/L (21.0-32.0); UREA NITROGEN 19 mg/dL (7-18)
[2018-10-22 08:39] VITALS: BP 148/94
[2018-10-22 12:00] VITALS: BP 120/81
[2018-10-22 16:00] VITALS: BP 140/93
--- NOTE | 2018-10-22 18:40 | NUR ---
PATIENT SITTING UP IN BED, PERCOCET GIVEN FOR PAIN, PATIENT DENIES NAUSEA AT THIS TIME. CL IN REACH
[2018-10-22 20:00] VITALS: BP 144/96
--- NOTE | 2018-10-22 20:51 | NUR ---
PT C/O PAIN 05/23. GAVE MORPHINE 2 MG IV PUSH. GAVE SCHEDULED MEDS. NO OTHER NEEDS. COMPLETE ASSESSMENT PER FLOW-SHEET. WILL CONTINUE TO MONITOR.
[2018-10-23] VITALS: BP 116/69
[2018-10-23 04:00] VITALS: BP 122/77
[2018-10-23 05:39] LABS: BASOPHILS 0 % (0-2); EOSINOPHILS 0 % (0-7); HEMATOCRIT 33.6 % (36.0-48.0); HEMOGLOBIN 10.4 g/dL (12-16); IMMATURE GRANULOCYTES 0.2 % (0-5); LYMPHOCYTES 13.3 % (15-50); MCH 29.8 pg (26.0-34.0); MCV 96.3 fL (80.0-100.0); MEAN PLATELET VOLUME 10.8 fL (7.4-10.4); MONOCYTES 2.4 % (2-11); NEUTROPHILS 84.1 % (40-80); PLATELET COUNT 174 10x3/uL (130-400); RBC 3.49 10x6/uL (4.00-5.40); RDW 12.6 % (11.5-14.5); WBC 6.2 10x3/uL (4.8-10.8)
[2018-10-23 06:11] LABS: ALBUMIN 2.5 g/dL (3.4-5.0); ALKALINE PHOSPHATASE 74 U/L (46-116); ALT (SGPT) 19 U/L (10-68); AMYLASE - SERUM 45 U/L (25-115); BILIRUBIN - TOTAL 0.18 mg/dL (0.2-1.3); CALC OSMOLALITY 290 mosm/kg (275-300); CARBON DIOXIDE 28.5 mmol/L (21.0-32.0); CHLORIDE - SERUM 107 mmol/L (98-107); CREATININE - SERUM 0.7 mg/dL (0.6-1.3); GLUCOSE 126 mg/dL (74-106); LIPASE 78 U/L (73-393); PROTEIN - SERUM 5.4 g/dL (6.4-8.2); SODIUM 143 mmol/L (136-145); UREA NITROGEN 23 mg/dL (7-18); eGFR NON AFRICAN AMERICAN > 90 mL/min (90-120)
--- NOTE | 2018-10-23 07:14 | NUR ---
REC'D IN BED AWAKE AND ALERT. RESP EVEN AND UNLABORED WITH NO DISTRESS NOTED. ASSESSMENT COMPLETED. CAN VOICE NEEDS AND WANTS WITH NONE NOTED OR VOICED. C/L IN REACH AT BEDSIDE.
[2018-10-23 07:55] VITALS: BP 120/70
--- NOTE | 2018-10-23 08:39 | NUR ---
PATIENT RESTING WITH NO NEEDS VOICED, CL IN REACH
--- NOTE | 2018-10-23 09:19 | NUR ---
WAS MEDICATED WITH MORPHINE PER ORDERS FOR C/O PAIN RATING 8/10 ON PAIN SCALE. C/L IN REACH AT BEDSIDE.
--- NOTE | 2018-10-23 11:42 | NUR ---
CALL WAS PLACED TO FINGERNAIL TECHNICIAN ABOUT PT STATING THAT HER PAIN IS UNCONTROLLED AT THIS TIME SHE WAS MEDCIATED WITH OXY 10 MG PO @ 1137. REC'D NEW ORDERS FOR ONE TIMES DOSE OF MORPINE 2 MG NOW. PT MADE AWARE OF NEW ORDER. C/L IN REACH AT BEDSIDE.
--- NOTE | 2018-10-23 12:18 | NUR ---
REC'D ORDERS FROM Dov MACIAS APN TO DC MORPHINE 2 MG Q4HRS PRN AND TO START PT ON DILAUDID 1 MG Q4HRS PRN PAIN. PT WAS MADE OF AWARE OF MEDICATION CHANGES AND AGREE WITH POC. C/L IN REACH AT BEDSIDE.
[2018-10-23 13:00] VITALS: BP 159/102
[2018-10-23 16:00] VITALS: BP 148/89
--- NOTE | 2018-10-23 18:17 | NUR ---
MEDICATED WITH OXY FOR C/O PAIN RATING 7/10 ON PAIN SCALE PER PT REQUEST. C/L IN REACH AT BEDSIDE
[2018-10-23 20:00] VITALS: BP 127/82
--- NOTE | 2018-10-23 20:38 | NUR ---
PT C/O PAIN 04/22. GAVE DILAUDID 1 MG IV PUSH. GAVE SCHEDULED MEDS. ASSESSMENT COMPLETE PER FLOW-SHEET. NO OTHER NEEDS. WILL CONTINUE TO MONITOR.
[2018-10-24 04:00] VITALS: BP 146/99
[2018-10-24 06:38] LABS: BASOPHILS 0 % (0-2); EOSINOPHILS 0 % (0-7); HEMATOCRIT 30.2 % (36.0-48.0); HEMOGLOBIN 9.4 g/dL (12-16); IMMATURE GRANULOCYTES 0.2 % (0-5); LYMPHOCYTES 15.3 % (15-50); MCHC 31.1 g/dL (31.0-37.0); MCV 96.5 fL (80.0-100.0); MONOCYTES 5.6 % (2-11); NEUTROPHILS 78.9 % (40-80); PLATELET COUNT 152 10x3/uL (130-400); RBC 3.13 10x6/uL (4.00-5.40); RDW 12.7 % (11.5-14.5); WBC 5.8 10x3/uL (4.8-10.8)
[2018-10-24 07:05] LABS: ALBUMIN 2.3 g/dL (3.4-5.0); ALKALINE PHOSPHATASE 66 U/L (46-116); ALT (SGPT) 15 U/L (10-68); BILIRUBIN - TOTAL 0.13 mg/dL (0.2-1.3); CALC OSMOLALITY 288 mosm/kg (275-300); CALCIUM 7.8 mg/dL (8.5-10.1); CARBON DIOXIDE 27.7 mmol/L (21.0-32.0); CHLORIDE - SERUM 110 mmol/L (98-107); CREATININE - SERUM 0.7 mg/dL (0.6-1.3); GLUCOSE 94 mg/dL (74-106); PROTEIN - SERUM 4.7 g/dL (6.4-8.2); SODIUM 144 mmol/L (136-145); UREA NITROGEN 18 mg/dL (7-18); eGFR NON AFRICAN AMERICAN > 90 mL/min (90-120)
[2018-10-24 07:10] LABS: POTASSIUM - SERUM 5.8 mmol/L (3.5-5.1)
--- NOTE | 2018-10-24 07:43 | NUR ---
AWAKE AND ALERT. ORIENTED X3. NO C/O AT THIS TIME. LUNGS ARE CLEAR BILATERALLY, NO COUGH NOTED. SKIN IS INTACT WITHOUT REDNESS. REPORTS MULTIPLE EPISODES OF DIARRHEA ALL PM. WILL MONITOR. PORT TO LEFT CHEST IS PATENT WITHOUT REDNESS AT INSERTION SITE. DENIES NEEDS.
--- NOTE | 2018-10-24 07:45 | NUR ---
PT SITTING UP IN CHAIR AT BEDSIDE WITH EYES CLOSED. FAMILY AT BEDSIDE. NO ACUTE DISTRESS NOTED. REPORTS PAIN 1/10 AT THIS TIME. REPORTS ONE DIARRHEA STOOL IN MIDDLE OF NIGHT. IV TO RIGHT AC WITH NS @ 100 ML/HR INFUSING VIA PUMP. SITE WITHOUT REDNESS OR EDEMA. DENIES FURTHER NEEDS AT THIS TIME. CL WITHIN REACH. ENCOURAGED TO CALL WITH NEEDS. CONTINUE TO MONITOR.
[2018-10-24 08:04] VITALS: BP 142/87
--- NOTE | 2018-10-24 10:05 | NUR ---
REQUESTED AND GIVNE ONE MG DILAUDID SLOW IVP FOR C/O BACK AND LEG PAIN LEVEL 9. WILL MONITOR.
[2018-10-24 11:55] VITALS: BP 134/87
--- NOTE | 2018-10-24 12:11 | NUR ---
FSBS 133. NO COVERAGE REQUIRED.
--- NOTE | 2018-10-24 14:00 | NUR ---
REQUESTED AND GIVEN ONE MG DILAUDID SLOW IVP FOR C/O BACK/LEG PAIN LEVEL 9. WILL MONITOR.
[2018-10-24 15:45] VITALS: BP 146/98
--- NOTE | 2018-10-24 19:30 | NUR ---
ATE OVER HALF OF SUPPER. FSBS WAS 104. NO COVERAGE REQUIRED. DENIES NEEDS. NO CHANGES NOTED. CONTINUES TO REPORT DIARRHEA STOOLS AT THIS TIME.
[2018-10-24 20:00] VITALS: BP 147/96
--- NOTE | 2018-10-24 22:26 | NUR ---
SUPINE IN BED, EYES CLOSED, RESPIRATIONS EVEN AND NON-LABORED. NO S/SX OF DISTRESS. WILL CONTINUE TO MONITOR.
--- NOTE | 2018-10-25 00:30 | NUR ---
FSBS 69. PT REQUESTED APPLE SAUCE AND JUICE FOR SNACK, WILL MONITOR CLOSELY.
--- NOTE | 2018-10-25 03:53 | NUR ---
RESTING QUITELY IN BED RESP UNLABORED NO APPARENT DISTRESS CALL LIGHT IN REACH
[2018-10-25 04:00] VITALS: BP 148/97
[2018-10-25 04:40] LABS: BASOPHILS 0 % (0-2); EOSINOPHILS 1.9 % (0-7); HEMOGLOBIN 10.3 g/dL (12-16); IMMATURE GRANULOCYTES 0.4 % (0-5); LYMPHOCYTES 31.8 % (15-50); MCH 30.1 pg (26.0-34.0); MCHC 31.2 g/dL (31.0-37.0); MCV 96.5 fL (80.0-100.0); MEAN PLATELET VOLUME 10.7 fL (7.4-10.4); MONOCYTES 5.7 % (2-11); NEUTROPHILS 60.2 % (40-80); PLATELET COUNT 176 10x3/uL (130-400); RBC 3.42 10x6/uL (4.00-5.40); RDW 12.6 % (11.5-14.5)
[2018-10-25 04:57] LABS: WBC 9.9 10x3/uL (4.8-10.8)
[2018-10-25 05:16] LABS: ALBUMIN 2.4 g/dL (3.4-5.0); ALKALINE PHOSPHATASE 93 U/L (46-116); ALT (SGPT) 16 U/L (10-68); BILIRUBIN - TOTAL 0.24 mg/dL (0.2-1.3); CALC OSMOLALITY 282 mosm/kg (275-300); CALCIUM 7.7 mg/dL (8.5-10.1); CARBON DIOXIDE 25.6 mmol/L (21.0-32.0); CHLORIDE - SERUM 107 mmol/L (98-107); CREATININE - SERUM 0.7 mg/dL (0.6-1.3); GLUCOSE 76 mg/dL (74-106); POTASSIUM - SERUM 5.6 mmol/L (3.5-5.1); PROTEIN - SERUM 5.2 g/dL (6.4-8.2); SODIUM 141 mmol/L (136-145); UREA NITROGEN 20 mg/dL (7-18); eGFR NON AFRICAN AMERICAN > 90 mL/min (90-120)
--- NOTE | 2018-10-25 07:44 | NUR ---
AWAKE AND ALERT. ORIENTED X3. C/O DIARRHEA AND NO SLEEP. LUNGS ARE CLEAR BIALTERALLY, NO COUGH NOTED. SKIN IS INTACT WITHOUT REDNESS. SOME EDEMA NOTED TO BILATERAL FEET. LEFT PORT IS PATENT WITHOUT REDNESS AT INSERTION SITE. DENIES NEEDS.
[2018-10-25 08:18] LABS: RENIN ACTIVITY - PLASMA 0.173 ng/mL/hr (0.167-5.380)
[2018-10-25 09:15] VITALS: BP 146/86
--- NOTE | 2018-10-25 10:29 | NUR ---
NUTRITION F/U PT REPORTS TOLERATING SOFT DIET. STATES SHE IS STILL HAVING SOME VOMITING BUT "MOSTLY LIKE WATER, NO FOOD IN IT." WILL CONTINUE TO PROVIDE DIET, MONITOR PT PROGRESS. RD FOLLOWING
--- NOTE | 2018-10-25 12:00 | NUR ---
FSBS 75. ENCOURAGED TO EAT ALL OF LUNCH. STOOL SPECIMEN COLLECTED AND TAKEN TO LAB.
[2018-10-25 13:07] LABS: APPEARANCE CLEAR (CLEAR); BILIRUBIN NEGATIVE (NEGATIVE); COLOR STRAW (YELLOW); GLUCOSE NEGATIVE (NEGATIVE); KETONE NEGATIVE (NEGATIVE); NITRITE NEGATIVE (NEGATIVE); PROTEIN NEGATIVE (NEGATIVE); SPECIFIC GRAVITY 1.005 (1.005-1.020); UROBILINOGEN NORMAL (NORMAL)
[2018-10-25 13:37] VITALS: BP 135/97
--- NOTE | 2018-10-25 18:00 | NUR ---
FSBS 104. NO COVERAGE
[2018-10-25 20:00] VITALS: BP 163/104
--- NOTE | 2018-10-25 20:11 | NUR ---
REQUESTED AND GIVEN 1MG DILAUDID SLOW IVP FOR C/O BACK AND LEG PAIN LEVEL 10. WILL MONITOR.
--- NOTE | 2018-10-25 21:45 | NUR ---
NOTIFIED OF ELEVATED BLOOD PRESSURE. RN NOTIFIED. PT C/O ABDOMEN PAIN AND CONTINUED DIARRHEA. WILL REASSESS FOR DECREASE IN BP AFTER NIGHTLY MEDS.
--- NOTE | 2018-10-25 22:30 | NUR ---
BLOOD PRESSURE 130/83. WILL CONTINUE TO MONITOR.
[2018-10-26] VITALS: BP 159/106
--- NOTE | 2018-10-26 02:29 | NUR ---
PT SITTING UP IN BED, ALERT AND ORIENTED. NO SIGNS OF DISTRESS. DENIES NEEDS AT THIS TIME. AGREE W/ GENERAL PARTNER ASSESSMENT. CL IN REACH, WILL CONTINUE TO MONITOR
[2018-10-26 04:00] VITALS: BP 164/106
[2018-10-26 06:16] LABS: BASOPHILS 0.2 % (0-2); EOSINOPHILS 2.3 % (0-7); HEMATOCRIT 31.6 % (36.0-48.0); HEMOGLOBIN 9.9 g/dL (12-16); IMMATURE GRANULOCYTES 0.3 % (0-5); MCH 29.8 pg (26.0-34.0); MCHC 31.3 g/dL (31.0-37.0); MCV 95.2 fL (80.0-100.0); MEAN PLATELET VOLUME 10.7 fL (7.4-10.4); MONOCYTES 4.7 % (2-11); NEUTROPHILS 43.5 % (40-80); PLATELET COUNT 151 10x3/uL (130-400); RBC 3.32 10x6/uL (4.00-5.40); RDW 12.5 % (11.5-14.5)
[2018-10-26 06:17] LABS: WBC 6.2 10x3/uL (4.8-10.8)
[2018-10-26 06:45] LABS: ALBUMIN 2.1 g/dL (3.4-5.0); ALKALINE PHOSPHATASE 66 U/L (46-116); ALT (SGPT) 14 U/L (10-68); CALC OSMOLALITY 283 mosm/kg (275-300); CALCIUM 7.8 mg/dL (8.5-10.1); CARBON DIOXIDE 30.7 mmol/L (21.0-32.0); CHLORIDE - SERUM 106 mmol/L (98-107); CREATININE - SERUM 0.6 mg/dL (0.6-1.3); GLUCOSE 73 mg/dL (74-106); PROTEIN - SERUM 4.8 g/dL (6.4-8.2); SODIUM 141 mmol/L (136-145); UREA NITROGEN 25 mg/dL (7-18); eGFR NON AFRICAN AMERICAN > 90 mL/min (90-120)
[2018-10-26 07:05] LABS: POTASSIUM - SERUM 4.6 mmol/L (3.5-5.1)
[2018-10-26 10:25] VITALS: BP 136/93
[2018-10-26 16:40] VITALS: BP 139/82
[2018-10-26 21:07] VITALS: BP 156/107
--- NOTE | 2018-10-26 21:35 | NUR ---
RESTING IN BED RESP. EVEN AND UNLABORED CALL LIGHT IN REACH. NO S/S OF DISTRESS.
[2018-10-27 04:39] VITALS: BP 138/90
[2018-10-27 05:49] LABS: BASOPHILS 0.2 % (0-2); EOSINOPHILS 3.3 % (0-7); HEMATOCRIT 32.4 % (36.0-48.0); HEMOGLOBIN 10.5 g/dL (12-16); IMMATURE GRANULOCYTES 0.2 % (0-5); LYMPHOCYTES 46.1 % (15-50); MCHC 32.4 g/dL (31.0-37.0); MEAN PLATELET VOLUME 10.3 fL (7.4-10.4); NEUTROPHILS 44.2 % (40-80); PLATELET COUNT 163 10x3/uL (130-400); RDW 12.6 % (11.5-14.5); WBC 6.1 10x3/uL (4.8-10.8)
[2018-10-27 06:17] LABS: ALBUMIN 2.4 g/dL (3.4-5.0); ALKALINE PHOSPHATASE 53 U/L (46-116); ALT (SGPT) 16 U/L (10-68); BILIRUBIN - TOTAL 0.18 mg/dL (0.2-1.3); CALC OSMOLALITY 283 mosm/kg (275-300); CALCIUM 8.2 mg/dL (8.5-10.1); CARBON DIOXIDE 27.1 mmol/L (21.0-32.0); CHLORIDE - SERUM 105 mmol/L (98-107); CREATININE - SERUM 0.7 mg/dL (0.6-1.3); GLUCOSE 82 mg/dL (74-106); PROTEIN - SERUM 5.3 g/dL (6.4-8.2); SODIUM 141 mmol/L (136-145); UREA NITROGEN 24 mg/dL (7-18); eGFR NON AFRICAN AMERICAN > 90 mL/min (90-120)
[2018-10-27 06:18] LABS: POTASSIUM - SERUM 3.9 mmol/L (3.5-5.1)
[2018-10-27 06:36] LABS: MCV 92.6 fL (80.0-100.0)
[2018-10-27 07:28] LABS: ALDOSTERONE 4.5 ng/dL (0.0-30.0)
[2018-10-27 08:18] VITALS: BP 160/95
[2018-10-27 12:31] VITALS: BP 144/102
--- NOTE | 2018-10-27 12:51 | OP ---
PATIENT NAME: RAFAEL PETTY MEDICAL RECORD: [id number] :75 LOCATION:[facility] ADMISSION DATE:10/19/18 SURGEON: COLLEEN KENDALL MD DATE OF OPERATION: 10/27/2018 PREOPERATIVE DIAGNOSES: Epigastric pain, nausea and vomiting. PROCEDURE PERFORMED: EGD. SURGEON: Colleen Kendall MD ANESTHESIA: Total intravenous anesthesia. COMPLICATIONS: None. SPECIMENS: None. OPERATIVE COURSE: After consent was obtained, the patient was taken to the endoscopy suite. A timeout was taken to confirm the correct patient and procedure. Hurricaine [place] was administered. The patient was placed in left lateral decubitus position, IV anesthesia was obtained, a bite block was placed. The scope was passed through the biteblock. Under direct endoscopic vision, the scope was advanced through the posterior oropharynx and the distal esophagus. The mid and distal esophagus showed reflux and retained gastric contents consistent with gastroparesis. There was also severe plakia of the distal esophagus and stomach lining. This was copiously irrigated and suctioned. The scope was advanced into the stomach. The stomach was insufflated, again multiple moderate to severe patchy areas of plakia were identified. The scope was advanced through the pylorus into the second portion of the duodenum. The duodenum appeared within normal limits. The scope was withdrawn back to the stomach. Again, the stomach was copiously irrigated and suctioned. The stomach wall showed diffuse moderate gastritis. At this time, the scope was slowly withdrawn to the esophagus. No anatomical abnormalities were identified. The GE junction appeared within normal limits. Minimal evidence of esophagitis. The scope was withdrawn. At the end of the case, all needle and instrument counts were correct. No complications occurred. The patient was transferred to the recovery room in satisfactory condition. TRANSINT:[id number] Voice Confirmation ID: [id number] DOCUMENT ID: [id number] COLLEEN KENDALL MD at 1251 CC: [id number] DICTATION DATE: 10/27/18 0840 TOPPIECE CHOPPER: 10/27/18 0947 ADM IN [place] [id number] [place] [address]
[2018-10-27 16:30] VITALS: BP 164/111
[2018-10-27 20:00] VITALS: BP 111/87
[2018-10-28 00:01] VITALS: BP 116/72
[2018-10-28 04:00] VITALS: BP 120/84
--- NOTE | 2018-10-28 07:45 | NUR ---
PT RESTING IN BED. NO ACUTE DISTRESS. REPORTS PAIN 7/10 AT THIS TIME, BUT REPORTS PAIN MEDICATIONS ARE NOT DUE AT THIS TIME. IV TO LEFT CHEST PORT WITH D5 NS @ 30 ML/HR INFUSING VIA PUMP. SITE WITHOUT REDNESS OR EDEMA. DENIES FURTHER NEEDS AT THIS TIME. CL WITHIN REACH.
[2018-10-28] MEDS ORDERED: DIFLUCAN150 MG PO (08:54)
[2018-10-28 09:02] VITALS: BP 172/113
[2018-10-28] MEDS ORDERED: Nystatin Oral Susp [ PO (09:09)
[2018-10-28] MEDS ORDERED: BACLOFEN10 MG PO (09:09)
[2018-10-28] MEDS ORDERED: PROTONIX40 MG PO (09:09)
[2018-10-28] MEDS ORDERED: ELAVIL10 MG PO (09:12)
[2018-10-28 09:43] LABS: BASOPHILS 0.2 % (0-2); EOSINOPHILS 2.6 % (0-7); HEMATOCRIT 35.7 % (36.0-48.0); HEMOGLOBIN 11.3 g/dL (12-16); IMMATURE GRANULOCYTES 0.3 % (0-5); MCH 29.9 pg (26.0-34.0); MCHC 31.7 g/dL (31.0-37.0); MCV 94.4 fL (80.0-100.0); MEAN PLATELET VOLUME 10.2 fL (7.4-10.4); MONOCYTES 5.6 % (2-11); NEUTROPHILS 49.3 % (40-80); PLATELET COUNT 175 10x3/uL (130-400); RBC 3.78 10x6/uL (4.00-5.40); RDW 12.8 % (11.5-14.5); WBC 6.2 10x3/uL (4.8-10.8)
--- NOTE | 2018-10-28 09:54 | MORECARE ---
CASE MANAGEMENT DISCHARGE SUMMARY PATIENT: RAFAEL PETTY MARICEL UNIT: [id number] ADM DATE: 10/19/18 AGE: 43 : 75 SEX: F ROOM/BED: D.2207 AUTHOR: ROBERTO CRISTOBAL PHYSICIAN: REFERRING PHYSICIAN: CHAYO MURPHY DO DATE OF SERVICE: 10/28/18 Discharge Plan Patient Name: RAFAEL PETTY Facility: [facility]:[place] : 1975 Planned Disposition: Home with Home Health Anticipated Discharge Date: Discharge Date: Expected LOS: Initial Reviewer: [email or web address] Initial Review Date: 10/18/2018 Generated: 10/28/18 10:54 am Comments DCP- Discharge Planning Updated by [email or web address]: Krista Sanchez on 10/28/18 8:[address] PATIENT WILL BE DISCHARGING HOME TODAY WITH [facility] IN [place], I SPOKE WITH TAO AND THEY WILL ADMIT HER. IMM SERVED AND EXPLAINED. CM WILL CONTINUE TO FOLLOW AND ASSIST WITH DC PLANNING DCP- Discharge Planning Updated by [id number]: Krista Sanchez on 10/21/18 2:[address] Patient Name: RAFAEL PETTY Admission Status: Urgent Accout number: [id number] Admission Date: 10-19-2018 : 1975 Admission Diagnosis:NAUSEA WITH VOMITING, UNSPECIFIED Attending: CHAYO MURPHY Current LOS: 2 Anticipated DC Date: Planned Disposition: Home with Home Health Primary Insurance: MEDICARE A & B Discharge Planning Comments: CM met with patient to assess discharge planning needs. Patient lives with her family and plans to return there at discharge. Her will be the one to drive her home when she is ready. She stated that she is independent with her care at home. She has a walker, wheelchair, shower chair, and BSC at home. She is current with [facility] out of [place]. CM will continue to follow and assist with DC planning as needed. She feels safe to return home at DC Ecotherapist: Krista Sanchez DCPIA - Discharge Planning Initial Assessment Updated by [email or web address]: Krista Sanchez on 10/21/18 3:34 pm * Is the patient Alert and Oriented? Yes * How many steps to enter\exit or inside your home? * PCP [facility] * [facility]acy [facility] * Preadmission Environment Home with Family * ADLs Independent * Equipment Bedside Commode Elevated [place] Seat Rolling Walker Shower Chair Wheelchair * List name and contact numbers for known caregivers / representatives who currently or will assist patient after discharge: HALLIE () [phone] * Verbal permission to speak to the caregivers and representatives has been obtained from the patient. N/A * Community resources currently utilized Home Health * Please name any agencies selected above. [facility] OUT OF [place] * Additional services required to return to the preadmission environment? No * Can the patient safely return to the preadmission environment? Yes * Has this patient been hospitalized within the prior 30 days at any hospital? No External Providers External Provider: [facility] Next Contact Date: Service Request Date: Service Type: Resolution: Reviewer: Comments: Coverage Notice Reviewer: [email or web address] Noemy Sanchez Notice Issued Date-Time: 10/28/2018 9:30 Notice Type: IM Discharge Notice Notice Delivered To: Patient Relationship to Patient: Communications Specialist Name: Delivery Method: HAND - Hand Delivered Anita Days: Prior Verbal Notification: Recipient Understood Notice: Yes Recipient Signature: Yes Med Rec Note Co-signed by Attending: Coverage Notice Comment: Last DP export: 10/21/18 2:37 pm Patient Name: RAFAEL PETTY Page [id number] at 0954 All edits/amendments must be made on the electronic document DICTATION DATE: 10/28/18953 CORN GROWER: MELANY 10/28/1854 RPT#: [id number] DC DATE: STATUS: ADM IN [facility] [address] [place] [address] END OF REPORT
[2018-10-28 10:49] LABS: ALBUMIN 2.7 g/dL (3.4-5.0); ALKALINE PHOSPHATASE 78 U/L (46-116); BILIRUBIN - TOTAL 0.13 mg/dL (0.2-1.3); CALCIUM 8.1 mg/dL (8.5-10.1); CARBON DIOXIDE 21.4 mmol/L (21.0-32.0); CHLORIDE - SERUM 109 mmol/L (98-107); CREATININE - SERUM 0.7 mg/dL (0.6-1.3); GLUCOSE 101 mg/dL (74-106); POTASSIUM - SERUM 3.9 mmol/L (3.5-5.1); PROTEIN - SERUM 5.9 g/dL (6.4-8.2); SODIUM 141 mmol/L (136-145); eGFR NON AFRICAN AMERICAN > 90 mL/min (90-120)
[2018-10-28 10:50] LABS: ALT (SGPT) 24 U/L (10-68); CALC OSMOLALITY 289 mosm/kg (275-300); UREA NITROGEN 37 mg/dL (7-18)
--- NOTE | 2018-10-28 13:15 | NUR ---
PT DISCHARGE INSTRUCTIONS PROVIDED WITH PRESCRIPTION AND MEDICATIONS CALLED INTO PHARMACY. PT VOICES UNDERSTANDING, DENIES QUESTIONS. LEFT CHEST PORT FLUSHED WITH 300 UNITS HEPARIN AND IV D/C'D. DRESSING PLACED. PT TAKEN OUT VIA W/C WITH PERSONAL ITEMS TO PRIVATE VEHICLE.
--- NOTE | 2018-10-28 14:32 | MORECARE ---
CASE MANAGEMENT DISCHARGE SUMMARY PATIENT: RAFAEL PETTY MARICEL UNIT: [id number] ADM DATE: 10/19/18 AGE: 43 : 75 SEX: F ROOM/BED: D.2207 AUTHOR: ROBERTO CRISTOBAL PHYSICIAN: REFERRING PHYSICIAN: CHAYO MURPHY DO DATE OF SERVICE: 10/28/18 Discharge Plan Patient Name: RAFAEL PETTY Facility: [facility]:[place] : 1975 Planned Disposition: Home with Home Health Anticipated Discharge Date: Discharge Date: 10/28/2018 Expected LOS: 0 Initial Reviewer: [email or web address] Initial Review Date: 10/18/2018 Generated: 10/28/18 3:32 pm Comments DCP- Discharge Planning Updated by [email or web address]: Krista Sanchez on 10/28/18 8:[address] PATIENT WILL BE DISCHARGING HOME TODAY WITH [facility] IN [place], I SPOKE WITH TAO AND THEY WILL ADMIT HER. IMM SERVED AND EXPLAINED. CM WILL CONTINUE TO FOLLOW AND ASSIST WITH DC PLANNING DCP- Discharge Planning Updated by [email or web address]: Krista Sanchez on 10/21/18 2:[address] Patient Name: RAFAEL PETTY Admission Status: Urgent Accout number: [id number] Admission Date: 10-19-2018 : 1975 Admission Diagnosis:NAUSEA WITH VOMITING, UNSPECIFIED Attending: CHAYO MURPHY Current LOS: 2 Anticipated DC Date: Planned Disposition: Home with Home Health Primary Insurance: MEDICARE A & B Discharge Planning Comments: CM met with patient to assess discharge planning needs. Patient lives with her family and plans to return there at discharge. Her will be the one to drive her home when she is ready. She stated that she is independent with her care at home. She has a walker, wheelchair, shower chair, and BSC at home. She is current with [facility] out of [place]. CM will continue to follow and assist with DC planning as needed. She feels safe to return home at DC Jointer Machine Operator: Krista Sanchez DCPIA - Discharge Planning Initial Assessment Updated by [email or web address]: Kritsa Sanchez on 10/21/18 3:34 pm * Is the patient Alert and Oriented? Yes * How many steps to enter\exit or inside your home? * PCP [facility] * [facility]acy [facility] * Preadmission Environment Home with Family * ADLs Independent * Equipment Bedside Commode Elevated [place] Seat Rolling Walker Shower Chair Wheelchair * List name and contact numbers for known caregivers / representatives who currently or will assist patient after discharge: HALLIE () [phone] * Verbal permission to speak to the caregivers and representatives has been obtained from the patient. N/A * Community resources currently utilized Home Health * Please name any agencies selected above. [facility] OUT OF [place] * Additional services required to return to the preadmission environment? No * Can the patient safely return to the preadmission environment? Yes * Has this patient been hospitalized within the prior 30 days at any hospital? No Coverage Notice Reviewer: [email or web address] Noemy Sanchez Notice Issued Date-Time: 10/28/2018 9:30 Notice Type: IM Discharge Notice Notice Delivered To: Patient Relationship to Patient: Post Office Clerk Name: Delivery Method: HAND - Hand Delivered Anita Days: Prior Verbal Notification: Recipient Understood Notice: Yes Recipient Signature: Yes Med Rec Note Co-signed by Attending: Coverage Notice Comment: Last DP export: 10/28/18 8:54 a Patient Name: RAFAEL PETTY Page [phone] at 1432 All edits/amendments must be made on the electronic document DICTATION DATE: 10/28/181431 PUBLIC ADDRESS SYSTEMS MECHANIC: MELANY 10/28/18 1432 RPT#: [id number] DC DATE:10/28/18 STATUS: DIS IN [facility] [address] [place] [address] END OF REPORT
== END 2018-10-28 13:30 | disposition home health service (06) | DRG 392 ==
LOC: D.MS 14:35 → OBSVTIME 14:42 → D.MS 14:42
PROVIDERS: Family Medicine; Internal Medicine Nephrology; Surgery; ADMIT Family Medicine
PROC: 0DJ08ZZ Inspection of Upper Intestinal Tract, Via Natural or Artificial Opening Endoscopic (ICD-10-PCS; principal; 2018-10-27 07:46)
DX: K29.00 Acute gastritis without bleeding (principal); Z68.1 Body mass index [BMI] 19.9 or less, adult; R11.2 Nausea with vomiting, unspecified; R10.9 Unspecified abdominal pain; G35 Multiple sclerosis; E86.0 Dehydration; E11.9 Type 2 diabetes mellitus without complications; K21.9 Gastro-esophageal reflux disease without esophagitis; I10 Essential (primary) hypertension; G47.33 Obstructive sleep apnea (adult) (pediatric); E53.8 Deficiency of other specified B group vitamins; K22.4 Dyskinesia of esophagus; K31.84 Gastroparesis; K20.9 Esophagitis, unspecified

== ENCOUNTER 2018-11-05 16:55 | Emergency (ER) | payer MEDICARE, MEDICAID ==
[~2018-11-05] VITALS: Ht 162.6 cm; Wt 50.9 kg
[~2018-11-05 16:55] MED LIST changes: +DIFLUCAN150 MG PO; +ELAVIL10 MG PO; +Nystatin Oral Susp [ PO
[2018-11-05 17:10] VITALS: Ht 162.6 cm; Wt 50.9 kg
[2018-11-05 17:28] LABS: APPEARANCE CLEAR (CLEAR); BILIRUBIN NEGATIVE (NEGATIVE); COLOR YELLOW (YELLOW); GLUCOSE NEGATIVE (NEGATIVE); KETONE NEGATIVE (NEGATIVE); NITRITE NEGATIVE (NEGATIVE); PROTEIN NEGATIVE (NEGATIVE); SPECIFIC GRAVITY 1.015 (1.005-1.020); UROBILINOGEN NORMAL (NORMAL)
[2018-11-05 18:18] LABS: BASOPHILS 0 % (0-2); EOSINOPHILS 0 % (0-7); HEMATOCRIT 33.6 % (36.0-48.0); HEMOGLOBIN 10.8 g/dL (12-16); IMMATURE GRANULOCYTES 0.3 % (0-5); LYMPHOCYTES 30.2 % (15-50); MCH 29.8 pg (26.0-34.0); MCHC 32.1 g/dL (31.0-37.0); MCV 92.6 fL (80.0-100.0); MONOCYTES 5.2 % (2-11); NEUTROPHILS 64.3 % (40-80); PLATELET COUNT 190 10x3/uL (130-400); RBC 3.63 10x6/uL (4.00-5.40); RDW 12.8 % (11.5-14.5); WBC 7.9 10x3/uL (4.8-10.8)
[2018-11-05 18:31] LABS: ALBUMIN 3.4 g/dL (3.4-5.0); ALKALINE PHOSPHATASE 67 U/L (46-116); ALT (SGPT) 18 U/L (10-68); CALC OSMOLALITY 289 mosm/kg (275-300); CALCIUM 9.8 mg/dL (8.5-10.1); CARBON DIOXIDE 28.1 mmol/L (21.0-32.0); CHLORIDE - SERUM 106 mmol/L (98-107); CREATININE - SERUM 0.7 mg/dL (0.6-1.3); GLUCOSE 74 mg/dL (74-106); POTASSIUM - SERUM 3.5 mmol/L (3.5-5.1); PROTEIN - SERUM 6.4 g/dL (6.4-8.2); SODIUM 142 mmol/L (136-145); UREA NITROGEN 36 mg/dL (7-18); eGFR NON AFRICAN AMERICAN > 90 mL/min (90-120)
[2018-11-05 18:34] LABS: AMYLASE - SERUM 36 U/L (25-115); LIPASE 80 U/L (73-393); TROPONIN-I < 0.017 ng/mL (0.000-0.060)
[2018-11-05] MEDS ORDERED: PHENERGAN25 M1 PO (20:43)
[2018-11-05 23:24] VITALS: BP 136/82
== END 2018-11-05 23:26 | disposition home or self-care (01) ==
LOC: D.ER 16:55
PROVIDERS: Family Medicine
DX: R11.2 Nausea with vomiting, unspecified (principal); G35 Multiple sclerosis

== ENCOUNTER 2018-11-13 20:17 | Emergency (ER) | payer MEDICARE, MEDICAID ==
[~2018-11-13] VITALS: Ht 162.6 cm; Wt 50.8 kg
[2018-11-13 20:31] VITALS: Ht 162.6 cm; Wt 50.8 kg
[2018-11-13 22:16] LABS: BASOPHILS 0 % (0-2); EOSINOPHILS 0.2 % (0-7); HEMATOCRIT 36.8 % (36.0-48.0); HEMOGLOBIN 12.2 g/dL (12-16); IMMATURE GRANULOCYTES 0.5 % (0-5); LYMPHOCYTES 16.3 % (15-50); MCH 29.6 pg (26.0-34.0); MCHC 33.2 g/dL (31.0-37.0); MCV 89.3 fL (80.0-100.0); MEAN PLATELET VOLUME 10.6 fL (7.4-10.4); MONOCYTES 2.9 % (2-11); NEUTROPHILS 80.1 % (40-80); RBC 4.12 10x6/uL (4.00-5.40); RDW 12.8 % (11.5-14.5); WBC 6.1 10x3/uL (4.8-10.8)
[2018-11-13 22:17] LABS: PLATELET COUNT 265 10x3/uL (130-400)
[2018-11-13 22:24] LABS: ALBUMIN 3.2 g/dL (3.4-5.0); ALKALINE PHOSPHATASE 85 U/L (46-116); ALT (SGPT) 27 U/L (10-68); BILIRUBIN - TOTAL 0.23 mg/dL (0.2-1.3); CALC OSMOLALITY 278 mosm/kg (275-300); CALCIUM 8.5 mg/dL (8.5-10.1); CARBON DIOXIDE 27.1 mmol/L (21.0-32.0); CHLORIDE - SERUM 102 mmol/L (98-107); CREATININE - SERUM 0.6 mg/dL (0.6-1.3); POTASSIUM - SERUM 4.4 mmol/L (3.5-5.1); PROTEIN - SERUM 6.4 g/dL (6.4-8.2); SODIUM 137 mmol/L (136-145); UREA NITROGEN 23 mg/dL (7-18); eGFR NON AFRICAN AMERICAN > 90 mL/min (90-120)
[2018-11-13 22:25] LABS: GLUCOSE 114 mg/dL (74-106)
[2018-11-13 22:28] LABS: TROPONIN-I < 0.017 ng/mL (0.000-0.060)
[2018-11-13 23:50] VITALS: BP 168/113
== END 2018-11-13 23:51 | disposition home or self-care (01) ==
LOC: D.ER 20:17
PROVIDERS: Family Medicine
DX: G35 Multiple sclerosis (principal); I10 Essential (primary) hypertension; M62.838 Other muscle spasm

== ENCOUNTER 2018-11-30 00:06 | Inpatient (IN) | payer MEDICARE ==
[~2018-11-30] VITALS: Ht 162.6 cm; Wt 55.3 kg
[2018-11-30 00:39] LABS: APPEARANCE CLEAR (CLEAR); BILIRUBIN NEGATIVE (NEGATIVE); COLOR YELLOW (YELLOW); GLUCOSE 500 mg/dL (NEGATIVE); KETONE NEGATIVE (NEGATIVE); NITRITE NEGATIVE (NEGATIVE); PROTEIN NEGATIVE (NEGATIVE); UROBILINOGEN NORMAL (NORMAL)
[2018-11-30 01:03] LABS: BASOPHILS 0.2 % (0-2); EOSINOPHILS 0 % (0-7); HEMATOCRIT 34.3 % (36.0-48.0); IMMATURE GRANULOCYTES 0.5 % (0-5); LYMPHOCYTES 10.3 % (15-50); MCH 29.1 pg (26.0-34.0); MCHC 32.1 g/dL (31.0-37.0); MCV 90.7 fL (80.0-100.0); MEAN PLATELET VOLUME 9.8 fL (7.4-10.4); MONOCYTES 1.7 % (2-11); NEUTROPHILS 87.3 % (40-80); PLATELET COUNT 271 10x3/uL (130-400); RBC 3.78 10x6/uL (4.00-5.40); RDW 14.2 % (11.5-14.5); WBC 4.1 10x3/uL (4.8-10.8)
[2018-11-30 01:24] LABS: ALBUMIN 3.2 g/dL (3.4-5.0); ANION GAP 15.2 mmol/L (8-16); BILIRUBIN - TOTAL 0.33 mg/dL (0.2-1.3); CALCIUM 8.6 mg/dL (8.5-10.1); CARBON DIOXIDE 22.7 mmol/L (21.0-32.0); CREATININE - SERUM 1.1 mg/dL (0.6-1.3); POTASSIUM - SERUM 3.9 mmol/L (3.5-5.1); PROTEIN - SERUM 6.7 g/dL (6.4-8.2)
--- NOTE | 2018-11-30 02:17 | NUR ---
BS 233
--- NOTE | 2018-11-30 03:09 | NUR ---
PT WENT TO CT
[2018-11-30 04:00] VITALS: BP 159/80
[2018-11-30 04:28] VITALS: BP 135/99
--- NOTE | 2018-11-30 05:19 | NUR ---
iv stop time 05 when pt taken to her room
[2018-11-30 07:32] VITALS: BMI 21.0
[2018-11-30 08:50] VITALS: BP 173/101
--- NOTE | 2018-11-30 09:34 | NUR ---
PATIENT IN BED, SKIN W/D TO TOUCH, COLOR PALE, RESP. REGULAR AND EVEN AT 18. CENTRAL LINE INTACT TO LEFT S/C. PATIENT DENIES ANY C/O PAIN WHEN ASKED. AT BEDSIDE. C/L WITHIN REACH AND SR'S UP X' 2.
[2018-11-30 12:53] VITALS: BMI 20.9
--- NOTE | 2018-11-30 12:54 | NUR ---
PATIENT WENT TO MRI AT 11:00 RETURNED AT 12 AND NOT DONE TO GO BACK AY 1300. PATIENT DENIES ANY C/O PAIN WHEN ASKED. C/L WITHIN REACH AND SR'S UP X'S 2.
[2018-11-30 13:53] VITALS: BP 152/97
--- NOTE | 2018-11-30 15:33 | MORECARE ---
CASE MANAGEMENT DISCHARGE SUMMARY PATIENT: RAFAEL PETTY MARICEL UNIT: [id number] ADM DATE: 11/30/18 AGE: 43 : 75 SEX: F ROOM/BED: D.2236 AUTHOR: ROBERTO CRISTOBAL PHYSICIAN: REFERRING PHYSICIAN: AGUSTIN LAGUNAS MD DATE OF SERVICE: 11/30/18 Discharge Plan Patient Name: RAFAEL PETTY Facility: [facility]:[place] : 1975 Planned Disposition: Home with Home Health Anticipated Discharge Date: 11/30/18 Discharge Date: Expected LOS: 1 Initial Reviewer: [email or web address] Initial Review Date: 11/30/2018 Generated: 11/30/18 4:33 pm Patient Name: RAFAEL PETTY Page 18157 at 1533 All edits/amendments must be made on the electronic document DICTATION DATE: 11/30/18 1532 AIRPLANE DESIGNER: MELANY 11/30/18 1532 RPT#: [id number] DC DATE: STATUS: ADM IN [facility] [address] [place] [address] END OF REPORT
--- NOTE | 2018-11-30 15:46 | MORECARE ---
CASE MANAGEMENT DISCHARGE SUMMARY PATIENT: RAFAEL PETTY MARICEL UNIT: [id number] ADM DATE: 11/30/18 AGE: 43 : 75 SEX: F ROOM/BED: D.2236 AUTHOR: ROBERTO CRISTOBAL PHYSICIAN: REFERRING PHYSICIAN: AGUSTIN LAGUNAS MD DATE OF SERVICE: 11/30/18 Discharge Plan Patient Name: RAFAEL PETTY Facility: [facility]:[place] : 1975 Planned Disposition: Home with Home Health Anticipated Discharge Date: 11/30/18 Discharge Date: Expected LOS: 1 Initial Reviewer: [email or web address] Initial Review Date: 11/30/2018 Generated: 11/30/18 4:46 pm Comments DCP- Discharge Planning Updated by [id number]: Jennifer Bell on 11/30/18 2:[address] Patient Name: RAFAEL PETTY Admission Status: ER Accout number: [id number] Admission Date: 11-30-2018 : 1975 Admission Diagnosis: Attending: AGUSTIN LAGUNAS Current LOS: 1 Anticipated DC Date: 11-30-2018 Planned Disposition: Home with Home Health Primary Insurance: MEDICARE A & B Discharge Planning Comments: CM met with patient and her in the room to discuss discharge planning. She states she lives independently with her . States she no longer drives, her drives her where she needs to go. I discussed the availability of rehab, SNF, home health and additional needs. She states she plans to discharge home with resumption of [facility] home health out of [place] and feels this is a safe discharge plan. CM will continue to follow and assist with discharge planning/needs. Senior Electrical Project Manager: Jennifer Bell DCPIA - Discharge Planning Initial Assessment Updated by [email or web address]: Jennifer Bell on 11/30/18 3:33 pm * Is the patient Alert and Oriented? Yes * How many steps to enter\exit or inside your home? Ramp/0 * PCP Dr. Pena * Pharmacy [facility] * Preadmission Environment Home with Family * ADLs Independent * Equipment Bedside Commode Elevated [place] Seat Rolling Walker Shower Chair Wheelchair * List name and contact numbers for known caregivers / representatives who currently or will assist patient after discharge: John - - [phone] * Verbal permission to speak to the caregivers and representatives has been obtained from the patient. Yes * Community resources currently utilized Home Health * Please name any agencies selected above. [facility] ([place]) * Additional services required to return to the preadmission environment? No * Can the patient safely return to the preadmission environment? Yes * Has this patient been hospitalized within the prior 30 days at any hospital? No Last DP export: 11/30/18 2:33 p Patient Name: RAFAEL PETTY Page [phone] at 1546 All edits/amendments must be made on the electronic document DICTATION DATE: 11/30/181545 NEONATAL NURSE PRACTITIONER: MELANY 11/30/181545 RPT#: [id number] DC DATE: STATUS: ADM IN [facility] [address] [place] [address] END OF REPORT
[2018-11-30 16:42] VITALS: BP 158/97
--- NOTE | 2018-11-30 16:43 | NUR ---
I have reviewed this patient and I concur with the Shift Assessment completed by the Licensed Practical Nurse today this shift.
[2018-11-30 18:47] VITALS: Ht 162.6 cm; Wt 55.3 kg
[2018-11-30 20:00] VITALS: BP 137/94
--- NOTE | 2018-11-30 20:00 | NUR ---
ALERT AND ORIENTIATED SITTING UP IN BED, DILAUDID RECRUITER ACCOUNT MANAGER STARTED FOR PAIN CONTROL, CALL LIGHT IN REACH SEE SHIFT ASSESSMENT.
[2018-12-01 04:00] VITALS: BP 166/101
--- NOTE | 2018-12-01 07:27 | NUR ---
PT IS RESTING IN BED WITH EYES CLOSED. RESPIRATIONS ARE EVEN AND UNLABORED. PT IS EASILY AROUSED WITH VERBAL STIMULATION. PT REPORTS PAIN, BUT HAS EMAIL ADMINISTRATOR DILAUDID INFUSING. BS ACTIVE X 4 PT REPORTS THAT SHE IS PASSING GAS. [place] FRI[employer] CH[employer]EN FOOD IS IN ROOM. PT QUESTIONED ABOUT DIET AND IF SHE HAS ATE ANY OF THE [employer]. PT DENIES EATING [employer] AND REPORTS THAT SHE HAS ONLY HAD CLEAR LIQUIDS. PT STATES THAT THE FOOD BELONGS TO HER . THERE IS A COT IN THE ROOM THAT PT IS USING FOR RESTING THROUGHOUT THE HOSPITAL STAY. BED IS IN THE LOWEST POSITION. CALL LIGHT AND BEDSIDE TABLE ARE WITHIN REACH. PT DENIES FURTHER NEEDS. WILL CONT TO MONITOR.
[2018-12-01 07:48] LABS: BASOPHILS 0.3 % (0-2); EOSINOPHILS 0.8 % (0-7); HEMATOCRIT 29.1 % (36.0-48.0); HEMOGLOBIN 9.3 g/dL (12-16); IMMATURE GRANULOCYTES 0.3 % (0-5); LYMPHOCYTES 27.7 % (15-50); MCH 29.2 pg (26.0-34.0); MCV 91.2 fL (80.0-100.0); MEAN PLATELET VOLUME 9.6 fL (7.4-10.4); MONOCYTES 10.3 % (2-11); NEUTROPHILS 60.6 % (40-80); RBC 3.19 10x6/uL (4.00-5.40); RDW 14.7 % (11.5-14.5); WBC 3.9 10x3/uL (4.8-10.8)
[2018-12-01 07:49] LABS: PLATELET COUNT 195 10x3/uL (130-400)
--- NOTE | 2018-12-01 08:00 | NUR ---
PORT DRESSING CHANGED PER PROTOCOL. BIOPATCH IS IN PLACE. PT TOLERATED WELL. BED IS IN THE LOWEST POSITION. CALL LIGHT AND BEDSIDE TABLE ARE WITHIN REACH. PT DENIES FURTHER NEEDS. WILL CONT TO MONITOR.
[2018-12-01 08:04] LABS: ALBUMIN 2.4 g/dL (3.4-5.0); ALKALINE PHOSPHATASE 75 U/L (46-116); ALT (SGPT) 23 U/L (10-68); AMYLASE - SERUM 40 U/L (25-115); BILIRUBIN - TOTAL 0.15 mg/dL (0.2-1.3); CALCIUM 7.8 mg/dL (8.5-10.1); CARBON DIOXIDE 27.4 mmol/L (21.0-32.0); CHLORIDE - SERUM 109 mmol/L (98-107); LIPASE 62 U/L (73-393); MAGNESIUM - SERUM 1.8 mg/dL (1.8-2.4); PHOSPHOROUS 3.5 mg/dL (2.5-4.9); POTASSIUM - SERUM 3.4 mmol/L (3.5-5.1); PRE-ALBUMIN 20.9 mg/dL (18.0-35.7); SODIUM 143 mmol/L (136-145)
[2018-12-01 08:11] LABS: CALC OSMOLALITY 284 mosm/kg (275-300); CREATININE - SERUM 0.5 mg/dL (0.6-1.3); GLUCOSE 76 mg/dL (74-106); PROTEIN - SERUM 4.9 g/dL (6.4-8.2); UREA NITROGEN 15 mg/dL (7-18); eGFR NON AFRICAN AMERICAN > 90 mL/min (90-120)
[2018-12-01 08:12] LABS: TROPONIN-I < 0.017 ng/mL (0.000-0.060)
[2018-12-01 10:11] VITALS: BP 165/94
[2018-12-01 13:37] VITALS: BP 130/90
[2018-12-01 17:34] VITALS: BP 163/97
[2018-12-01 20:00] VITALS: BP 184/113
--- NOTE | 2018-12-01 20:00 | NUR ---
ALERT RESTING IN BED REPORTS PAIN CONTROLED BY PIECE WORKER. SEE SHIFT ASSESSMENT CALL CASSIE PANDA
[2018-12-02] VITALS (8 sets, daily range): BP systolic 159–181; BP diastolic 91–117
--- NOTE | 2018-12-02 07:44 | NUR ---
AAOX4, ON ROOM AIR, LEFT CHEST PORT, PATENT, DILAUDID DEVELOPMENT TRAINER 0.2/06/16, PRESENT IN ROOM, C/O DISCOMFORT TO ABD BUT STATED "MY PUMP HELPS." DENIES ANY OTHER NEEDS OR DISCOMFORTS, BED LOWERED AND LOCKED, CALL LIGHT WITHIN REACH. CPOC
--- NOTE | 2018-12-02 09:07 | NUR ---
C/O NAUSEA. ADMINISTERED IV ZOFRAN, OFFERED COLD RAG TO HEAD, REFUSED, TURNED LIGHTS OFF, ROOM TEMPATURE COOL, DENIES ANY OTHER NEEDS OR DISCOMFORTS, BED LOWERED AND LOCKED, CALL LIGHT WITHIN REACH. CPOC
--- NOTE | 2018-12-02 12:11 | NUR ---
PATIENT FOUND ON FLOOR, STATED "I WAS TRYING TO BEND OVER AND STEAMSHIP AGENT MY PHONE" WAS FOUND ON RIGHT SIDE, SEMI-SITTING, LEANING ON RIGHT SHOULDER, 2 PERSON ASSIST TO GET OFF THE FLOOR. STATED "DID NOT HIT HEAD" NO SKIN TEARS, REDNESS, OR BRUISING TO SKIN, VS WERE 149/98, RIGHT ARM, RESPIRATIONS 20, 95% ON ROOM AIR, HEART RATE 87, TEMP 98.7 ORAL. YELLOW GOWN, NON-SKIN SOCKS APPLIED, BED LOWERED AND LOCKED, HARPER ALARM TURNED ON, CALL LIGHT WITHIN REACH. CPOC
--- NOTE | 2018-12-02 13:36 | NUR ---
NUTRITION F/U PT REMAINS ON CLEAR LIQUID DIET. PROCALAMINE @ 50 CC/HR PROVIDING 245 KCAL, 36 GM PROTEIN PER DAY. WILL MONITOR DIET ADVANCEMENT, PT PROGRESS. RD FOLLOWING
--- NOTE | 2018-12-02 16:05 | NUR ---
I have reviewed this patient and I concur with the Shift Assessment completed by the Licensed Practical Nurse today this shift.
[2018-12-02 17:25] LABS: BASOPHILS 0.2 % (0-2); EOSINOPHILS 1.2 % (0-7); IMMATURE GRANULOCYTES 0.3 % (0-5); LYMPHOCYTES 25.7 % (15-50); MCH 28.9 pg (26.0-34.0); MCHC 32.7 g/dL (31.0-37.0); MEAN PLATELET VOLUME 9.7 fL (7.4-10.4); MONOCYTES 5.4 % (2-11); NEUTROPHILS 67.2 % (40-80); PLATELET COUNT 202 10x3/uL (130-400); RDW 14.2 % (11.5-14.5)
[2018-12-02 17:26] LABS: HEMATOCRIT 35.5 % (36.0-48.0); HEMOGLOBIN 11.6 g/dL (12-16); MCV 88.3 fL (80.0-100.0); RBC 4.02 10x6/uL (4.00-5.40); WBC 5.9 10x3/uL (4.8-10.8)
[2018-12-02 18:31] LABS: ALBUMIN 2.9 g/dL (3.4-5.0); ALKALINE PHOSPHATASE 87 U/L (46-116); ALT (SGPT) 26 U/L (10-68); BILIRUBIN - TOTAL 0.34 mg/dL (0.2-1.3); CALC OSMOLALITY 270 mosm/kg (275-300); CALCIUM 8.8 mg/dL (8.5-10.1); CARBON DIOXIDE 26.3 mmol/L (21.0-32.0); CHLORIDE - SERUM 101 mmol/L (98-107); CREATININE - SERUM 0.4 mg/dL (0.6-1.3); GLUCOSE 83 mg/dL (74-106); PROTEIN - SERUM 6.1 g/dL (6.4-8.2); SODIUM 137 mmol/L (136-145); UREA NITROGEN 6 mg/dL (7-18); eGFR NON AFRICAN AMERICAN > 90 mL/min (90-120)
--- NOTE | 2018-12-02 19:01 | NUR ---
BLOOD PRESSURE CONTINUES TO BE ELEVATED. LASIX AND APRESOLINE GIVEN PER ORDER. PT C/O NAUSEA. EMESIS X 1 DURING SHIFT, ZOFRAN ADMINISTERED TWICE DURING SHIFT. POOR APPETITE. LEFT CHEST PORT PATENT, INFUSING PROCAL AND NS WITH DILAUDID SHIELD CLEANER. DENIES ANY CURRENT NEEDS OR DISCOMFORTS, BED LOWERED AND LOCKED, CALL LIGHT WITHIN REACH. CPOC
--- NOTE | 2018-12-03 00:38 | NUR ---
BP 159/109 - GAVE APPRESSOLINE 10 MG IV PUSH. FSBS 233 - PT REFUSED INSULIN. ASSESSMENT COMPLETE PER FLOW-SHEET. NO OTHER NEEDS. WILL CONTINUE TO MONITOR.
[2018-12-03 04:00] VITALS: BP 154/98
[2018-12-03 06:34] LABS: BASOPHILS 0.3 % (0-2); EOSINOPHILS 0.9 % (0-7); HEMATOCRIT 33.8 % (36.0-48.0); IMMATURE GRANULOCYTES 0.2 % (0-5); MCH 28.9 pg (26.0-34.0); MCHC 32.5 g/dL (31.0-37.0); MCV 88.9 fL (80.0-100.0); MEAN PLATELET VOLUME 9.6 fL (7.4-10.4); MONOCYTES 5.7 % (2-11); NEUTROPHILS 61.9 % (40-80); PLATELET COUNT 216 10x3/uL (130-400); RDW 14.6 % (11.5-14.5); WBC 6.5 10x3/uL (4.8-10.8)
[2018-12-03 06:56] LABS: ALBUMIN 2.6 g/dL (3.4-5.0); ALKALINE PHOSPHATASE 77 U/L (46-116); BILIRUBIN - TOTAL 0.28 mg/dL (0.2-1.3); CALCIUM 8.5 mg/dL (8.5-10.1); CARBON DIOXIDE 28.2 mmol/L (21.0-32.0); CHLORIDE - SERUM 105 mmol/L (98-107); CREATININE - SERUM 0.5 mg/dL (0.6-1.3); GLUCOSE 103 mg/dL (74-106); POTASSIUM - SERUM 3.4 mmol/L (3.5-5.1); PROTEIN - SERUM 5.7 g/dL (6.4-8.2); SODIUM 140 mmol/L (136-145); eGFR NON AFRICAN AMERICAN > 90 mL/min (90-120)
[2018-12-03 06:58] LABS: ALT (SGPT) 11 U/L (10-68); CALC OSMOLALITY 277 mosm/kg (275-300); UREA NITROGEN 9 mg/dL (7-18)
--- NOTE | 2018-12-03 08:04 | NUR ---
AA0X4, ON ROOM AIR, LEFT CHEST PORT, INFUSING PROCAL, STATES "FEEL ALOT BETTER THAN YESTERDAY" PAIN IS 5/10. NO CURRENT NAUSEA. DENIES ANY CURRENT NEEDS OR DISCOMFORTS, BED LOWERED AND LOCKED, CALL LIGHT WITHIN REACH. CPOC
[2018-12-03 09:04] VITALS: BP 147/108
[2018-12-03 14:14] VITALS: BP 134/94
[2018-12-03 14:32] VITALS: BP 134/94
[2018-12-03 17:53] VITALS: BP 108/74
[2018-12-03 20:00] VITALS: BP 142/88
[2018-12-04] VITALS: BP 128/85
[2018-12-04 04:00] VITALS: BP 135/87
[2018-12-04 05:32] LABS: BASOPHILS 0.1 % (0-2); EOSINOPHILS 1.4 % (0-7); HEMATOCRIT 30.6 % (36.0-48.0); HEMOGLOBIN 9.5 g/dL (12-16); IMMATURE GRANULOCYTES 0.1 % (0-5); LYMPHOCYTES 33.9 % (15-50); MCH 28.3 pg (26.0-34.0); MEAN PLATELET VOLUME 9.6 fL (7.4-10.4); MONOCYTES 6.7 % (2-11); NEUTROPHILS 57.8 % (40-80); PLATELET COUNT 215 10x3/uL (130-400); RBC 3.36 10x6/uL (4.00-5.40); RDW 15.1 % (11.5-14.5)
[2018-12-04 05:36] LABS: MCV 91.1 fL (80.0-100.0)
[2018-12-04 06:17] LABS: ALBUMIN 2.3 g/dL (3.4-5.0); ALKALINE PHOSPHATASE 77 U/L (46-116); BILIRUBIN - TOTAL 0.22 mg/dL (0.2-1.3); CALC OSMOLALITY 272 mosm/kg (275-300); CALCIUM 8.3 mg/dL (8.5-10.1); CARBON DIOXIDE 26.7 mmol/L (21.0-32.0); CHLORIDE - SERUM 107 mmol/L (98-107); CREATININE - SERUM 0.5 mg/dL (0.6-1.3); GLUCOSE 83 mg/dL (74-106); PROTEIN - SERUM 5.4 g/dL (6.4-8.2); SODIUM 138 mmol/L (136-145); UREA NITROGEN 8 mg/dL (7-18); eGFR NON AFRICAN AMERICAN > 90 mL/min (90-120)
[2018-12-04 06:18] LABS: ALT (SGPT) 17 U/L (10-68); POTASSIUM - SERUM 5.1 mmol/L (3.5-5.1)
[2018-12-04 09:45] VITALS: BP 135/81
[2018-12-04 13:46] VITALS: BP 145/99
--- NOTE | 2018-12-04 15:46 | NUR ---
I have reviewed this patient and I concur with the Shift Assessment completed by the Licensed Practical Nurse today this shift.
[2018-12-04 17:35] VITALS: BP 127/63
--- NOTE | 2018-12-04 19:08 | NUR ---
OBSERVED PT EATING REGULAR CONSISTENCY FOOD. TOLD HER SHE NEEDED TO STICK TO THE DIET ORDERED AND SHE AGREED. NAUSEA AND GOTTEN BETTER SINCE YESTERDAY. ONLY ONE DOSE OF ZOFRAN TODAY. LEFT PORT. PATENT. DILAUDID CLEANER AND POLISHER. DENIES ANY NEEDS OR DISCOMFORTS, BED LOWERED AND LOCKED, CALL LIGHT WITHINR EACH. CPOC
[2018-12-04 20:00] VITALS: BP 128/90
[2018-12-05 04:00] VITALS: BP 143/94
[2018-12-05 05:30] LABS: BASOPHILS 0.1 % (0-2); EOSINOPHILS 1.6 % (0-7); HEMATOCRIT 32.6 % (36.0-48.0); HEMOGLOBIN 10.4 g/dL (12-16); IMMATURE GRANULOCYTES 0.1 % (0-5); MCH 29.1 pg (26.0-34.0); MCHC 31.9 g/dL (31.0-37.0); MCV 91.1 fL (80.0-100.0); MEAN PLATELET VOLUME 10.1 fL (7.4-10.4); MONOCYTES 5.9 % (2-11); NEUTROPHILS 56.3 % (40-80); PLATELET COUNT 242 10x3/uL (130-400); RBC 3.58 10x6/uL (4.00-5.40); RDW 14.9 % (11.5-14.5); WBC 7.6 10x3/uL (4.8-10.8)
[2018-12-05 05:32] LABS: ALBUMIN 2.5 g/dL (3.4-5.0); ALKALINE PHOSPHATASE 83 U/L (46-116); ALT (SGPT) 19 U/L (10-68); BILIRUBIN - TOTAL 0.24 mg/dL (0.2-1.3); CALC OSMOLALITY 270 mosm/kg (275-300); CALCIUM 8.3 mg/dL (8.5-10.1); CHLORIDE - SERUM 105 mmol/L (98-107); CREATININE - SERUM 0.5 mg/dL (0.6-1.3); GLUCOSE 90 mg/dL (74-106); MAGNESIUM - SERUM 2.4 mg/dL (1.8-2.4); PHOSPHOROUS 3.5 mg/dL (2.5-4.9); PROTEIN - SERUM 5.5 g/dL (6.4-8.2); SODIUM 136 mmol/L (136-145); UREA NITROGEN 9 mg/dL (7-18); eGFR NON AFRICAN AMERICAN > 90 mL/min (90-120)
--- NOTE | 2018-12-05 07:15 | NUR ---
PT IS RESTING IN BED WITH EYES OPEN. RESPIRATIONS ARE EVEN AND UNLABORED. PT REPORTS SLIGHT PAIN, BUT DENIES NEEDS. PT WITH COMPLIANCE MANAGER DILAUDID AVAILABE. COMPLIANCE MANAGER BUTTON IS WITHIN REACH. BED IS IN THE LOWEST POSITION. CALL LIGHT AND BEDSIDE TABLE ARE WITHIN REACH. WILL CONT TO MONITOR.
--- NOTE | 2018-12-05 08:06 | NUR ---
DILAUDID PCVA INFUSING 0.2 , Q10 36.5 ML X 2 DAYS
[2018-12-05 08:55] VITALS: BP 159/95
[2018-12-05 13:00] VITALS: BP 140/97
[2018-12-05 16:00] VITALS: BP 140/95
--- NOTE | 2018-12-05 16:20 | NUR ---
WAREHOUSE PRICING AND INVENTORY CLERK DILAUDID DISCONTINUED.
[2018-12-05 20:00] VITALS: BP 157/101
--- NOTE | 2018-12-05 20:00 | NUR ---
ALERT C/O ABD PAIN UNRELIEVED BY CURRENT PAIN MED, CALL PLACED TO DR STEELE ENVIRONMENTAL PERMITTING SPECIALIST AWAITING RETURN CALL
--- NOTE | 2018-12-05 20:30 | NUR ---
NO CALL BACK RECIEVED FROM DR STEELE AT THIS TIME, PAIN MEDICATION ADMINISTERED ORDERED WILL MONITOR FOR PAIN
--- NOTE | 2018-12-05 21:30 | NUR ---
EYES CLOSED RESP UNLABORED NO APPARENT DISTRESS
[2018-12-06 04:00] VITALS: BP 155/102
[2018-12-06 06:53] LABS: ALBUMIN 2.4 g/dL (3.4-5.0); ALKALINE PHOSPHATASE 71 U/L (46-116); BILIRUBIN - TOTAL 0.17 mg/dL (0.2-1.3); CALCIUM 8.6 mg/dL (8.5-10.1); CARBON DIOXIDE 26.9 mmol/L (21.0-32.0); CHLORIDE - SERUM 106 mmol/L (98-107); CREATININE - SERUM 0.5 mg/dL (0.6-1.3); GLUCOSE 86 mg/dL (74-106); PROTEIN - SERUM 5.5 g/dL (6.4-8.2); SODIUM 141 mmol/L (136-145); eGFR NON AFRICAN AMERICAN > 90 mL/min (90-120)
[2018-12-06 06:59] LABS: BASOPHILS 0.3 % (0-2); EOSINOPHILS 1.7 % (0-7); HEMATOCRIT 30.5 % (36.0-48.0); HEMOGLOBIN 9.7 g/dL (12-16); IMMATURE GRANULOCYTES 0.3 % (0-5); LYMPHOCYTES 28.5 % (15-50); MCHC 31.8 g/dL (31.0-37.0); MEAN PLATELET VOLUME 10.1 fL (7.4-10.4); MONOCYTES 5.4 % (2-11); NEUTROPHILS 63.8 % (40-80); PLATELET COUNT 233 10x3/uL (130-400); RBC 3.35 10x6/uL (4.00-5.40); RDW 14.6 % (11.5-14.5); WBC 7.1 10x3/uL (4.8-10.8)
[2018-12-06 07:00] LABS: ALT (SGPT) 14 U/L (10-68); CALC OSMOLALITY 279 mosm/kg (275-300); POTASSIUM - SERUM 4.7 mmol/L (3.5-5.1); UREA NITROGEN 12 mg/dL (7-18)
[2018-12-06 07:23] LABS: HELICOBACTER PYLORI IGG NEGATIVE (NEGATIVE)
--- NOTE | 2018-12-06 08:20 | NUR ---
PT AAOX4 RESP EVEN AND NONLBAORED, NO SIGNS OF DISTRESS NOTED, NO NEEDS EXPRESSED AT THIS TIME WILL CONTIUE TO MONITOR, CL IN REACH
[2018-12-06 08:52] VITALS: BP 169/107
[2018-12-06 09:19] LABS: HCG URINE NEGATIVE (NEGATIVE)
--- NOTE | 2018-12-06 13:08 | NUR ---
NUTRITION F/U CHART REVIEWED. PT SLEEPING. PROCALAMINE AT 50 CC/HR. NPO FOR J TUBE PLACEMENT. NOW ASSESSED WITH MALNUTRITION OF CHRONIC ILLNESS R/T DX, PMH AEB 1)=/< 75% INTAKE EST ENERGY NEEDS =/> 1 MONTH 2)OBSERVED SUBCUTANEOUS FAT/MUSCLE LOSS (SEVERE) WILL ASSIST WITH J TUBE FEEDS IF NEEDED, MONITOR PT PROGRESS. TUBE FEED REC'S 1)OSMOLITE 1.0 MAMIE @ 20 CC/HR 2)INCREASE 10 CC/HR Q 8 HOURS TOLERATED TO GOAL RATE 60 CC/HR 3)50 CC H2O FLUSH Q 4 HOURS 4)DO NOT CHECK RESIDUALS WILL PROVIDE 1526 KCAL, [address] DAY [address] FOLLOWING
[2018-12-06 13:49] VITALS: BP 142/98
--- NOTE | 2018-12-06 14:00 | NUR ---
HAVE CALLED PHARMACY TWICE ABOUT THE BACTROBAN OINTMENT THAT WAS SCHCEDULED FOR 0900 THIS MORNING AND STILL HAVE NOT RECEIVED MED AT THIS TIME
[2018-12-06 16:39] VITALS: BP 135/93
--- NOTE | 2018-12-06 18:02 | NUR ---
I have reviewed this patient and I concur with the Shift Assessment completed by the Licensed Practical Nurse today this shift.
--- NOTE | 2018-12-06 20:00 | NUR ---
ALERT SITTING UP IN BED DENIES PAIN AT THIS TIME, IV INFUSING WITHOUT DIFFICULTY, SEE SHIFT ASSESSMENT, CALL LIGHT IN REACH, REMINDED TO BE NPO AFTER MN FOR PEG TUBE PLACEMENT TOMORROW VERBALIZED UNDERSTANDING
[2018-12-06 20:27] VITALS: BP 143/95
[2018-12-07 00:40] VITALS: BP 151/97
[2018-12-07 04:47] VITALS: BP 144/94
[2018-12-07 05:28] LABS: BASOPHILS 0.4 % (0-2); EOSINOPHILS 2.1 % (0-7); HEMATOCRIT 30.6 % (36.0-48.0); HEMOGLOBIN 9.8 g/dL (12-16); IMMATURE GRANULOCYTES 0.4 % (0-5); LYMPHOCYTES 48.4 % (15-50); MCH 28.8 pg (26.0-34.0); MEAN PLATELET VOLUME 9.8 fL (7.4-10.4); MONOCYTES 6.8 % (2-11); NEUTROPHILS 41.9 % (40-80); PLATELET COUNT 233 10x3/uL (130-400); RDW 14.2 % (11.5-14.5)
[2018-12-07 05:35] LABS: WBC 5.3 10x3/uL (4.8-10.8)
[2018-12-07 06:08] LABS: ALBUMIN 2.4 g/dL (3.4-5.0); ALKALINE PHOSPHATASE 62 U/L (46-116); ALT (SGPT) 16 U/L (10-68); BILIRUBIN - TOTAL 0.23 mg/dL (0.2-1.3); CALC OSMOLALITY 276 mosm/kg (275-300); CALCIUM 8.6 mg/dL (8.5-10.1); CARBON DIOXIDE 27.5 mmol/L (21.0-32.0); CHLORIDE - SERUM 103 mmol/L (98-107); CREATININE - SERUM 0.5 mg/dL (0.6-1.3); GLUCOSE 94 mg/dL (74-106); POTASSIUM - SERUM 4.3 mmol/L (3.5-5.1); PROTEIN - SERUM 5.8 g/dL (6.4-8.2); SODIUM 138 mmol/L (136-145); UREA NITROGEN 14 mg/dL (7-18); eGFR NON AFRICAN AMERICAN > 90 mL/min (90-120)
--- NOTE | 2018-12-07 07:30 | NUR ---
REC'D IN WALKING ROUNDS AWAKE AND ALERT. RESP EVEN AND UNLABORED WITH NO DISTRESS NOTED. CAN EXPRESS NEEDS AND WANTS. ASSESSMENT COMPLETED. C/L IN REACH AT BEDSIDE.
[2018-12-07 09:19] VITALS: BP 153/87
--- NOTE | 2018-12-07 11:55 | NUR ---
PT OFF FLOOR AT THIS TIME FOR PROCEDURE OF PEG TUBE PLACMENT.
[2018-12-07 14:23] VITALS: BP 137/85
--- NOTE | 2018-12-07 14:52 | NUR ---
NUTRITION F/U CHART REVIEWED. PT S/P J TUBE. NOTE ORDERS TO START OSMOLITE 1.0 MAMIE @ 30 CC/HR. SPOKE WITH NURSING & DAMARIS DIAZ. ENTERED NURSING MESSAGE TO START TUBE FEEDS WITH 25 CC H2O FLUSH Q 4 HOURS. RECOMMEND TAPER AND DC PROCALAMINE TUBE FEEDS ADVANCE. RD FOLLOWING
--- NOTE | 2018-12-07 16:53 | NUR ---
MEDICATED WITH DILAUDID PER ORDERS FOR C/O ABD PAIN . C/L IN REACH AT BEDSIDE.
--- NOTE | 2018-12-07 19:23 | NUR ---
I have reviewed this patient and I concur with the Shift Assessment completed by the Licensed Practical Nurse today this shift.
--- NOTE | 2018-12-07 20:50 | NUR ---
PATIENT LYING IN BED. COMPLAINTS OF PAIN TO ABD AND BACK.REQUESTING DR STEELE BE CALLED. PATIENT STATES SHE WANTS CHIEF ARSON DIVISION RESTARTED. DR STEELE CALLED WITH NO NEW ORDERS RECIEVED. DILAUDID 2 MG GIVEN PER MAR. PATIENT INFORMED DR STEELE DOES NOT WANT CHIEF ARSON DIVISION RESTARTED. IV PATENT TO LEFT PORT.NO REDNESS OR EDEMA NOTED. OSMOLITE INFUSING AT 30 CC/HR TO LEFT PORT WITHOUT REDENSS OR EDEMA NOTED. CL IN REACH
[2018-12-07 21:02] VITALS: BP 167/109
--- NOTE | 2018-12-08 04:51 | NUR ---
I have reviewed this patient and I concur with the Shift Assessment completed by the Licensed Practical Nurse today this shift.
[2018-12-08 05:09] LABS: BASOPHILS 0.2 % (0-2); EOSINOPHILS 1.4 % (0-7); HEMATOCRIT 32.8 % (36.0-48.0); HEMOGLOBIN 10.6 g/dL (12-16); IMMATURE GRANULOCYTES 0.4 % (0-5); LYMPHOCYTES 28.4 % (15-50); MCHC 32.3 g/dL (31.0-37.0); MCV 89.9 fL (80.0-100.0); MEAN PLATELET VOLUME 10.2 fL (7.4-10.4); MONOCYTES 7.8 % (2-11); NEUTROPHILS 61.8 % (40-80); RBC 3.65 10x6/uL (4.00-5.40); RDW 14.1 % (11.5-14.5)
[2018-12-08 05:10] LABS: PLATELET COUNT 299 10x3/uL (130-400); WBC 8.4 10x3/uL (4.8-10.8)
[2018-12-08 05:20] LABS: CALCIUM 8.4 mg/dL (8.5-10.1); CARBON DIOXIDE 25.3 mmol/L (21.0-32.0); CHLORIDE - SERUM 103 mmol/L (98-107); SODIUM 140 mmol/L (136-145); UREA NITROGEN 14 mg/dL (7-18)
[2018-12-08 05:24] LABS: CALC OSMOLALITY 282 mosm/kg (275-300); CREATININE - SERUM 0.7 mg/dL (0.6-1.3); GLUCOSE 146 mg/dL (74-106); POTASSIUM - SERUM 3.3 mmol/L (3.5-5.1); eGFR NON AFRICAN AMERICAN > 90 mL/min (90-120)
--- NOTE | 2018-12-08 07:15 | NUR ---
REC'D IN SITTING ON SIDE OF BED AWAKE AND ALERT. RESP EVEN AND UNLABORED WITH NO DISTRESS NOTED. CAN EXPRESS NEEDS AND WANTS. NO C/O NOTED OR VOICED. ASSESSMENT COMPLETED. J TUBE NOTED TO LUQ WITH OSMOLITE INFUSING AT 45 CC/HR. AND C/L IN REACH AT BEDSIDE.
--- NOTE | 2018-12-08 09:32 | MORECARE ---
CASE MANAGEMENT DISCHARGE SUMMARY PATIENT: RAFAEL PETTY MARICEL UNIT: [id number] ADM DATE: 11/30/18 AGE: 43 : 75 SEX: F ROOM/BED: D.2236 AUTHOR: ROBERTO CRISTOBAL PHYSICIAN: REFERRING PHYSICIAN: AGUSTIN LAGUNAS MD DATE OF SERVICE: 12/08/18 Discharge Plan Patient Name: RAFAEL PETTY Facility: [facility]:[place] : 1975 Planned Disposition: Home with Home Health Anticipated Discharge Date: 11/30/18 Discharge Date: Expected LOS: 1 Initial Reviewer: [email or web address] Initial Review Date: 11/30/2018 Generated: 12/08/18 10:31 am DCP- Discharge Planning Updated by [email or web address]: Jennifer Bell on 11/30/18 2:[address] Patient Name: RAFAEL PETTY Admission Status: ER Accout number: [id number] Admission Date: 11-30-2018 : 1975 Admission Diagnosis: Attending: AGUSTIN LAGUNAS Current LOS: 1 Anticipated DC Date: 11-30-2018 Planned Disposition: Home with Home Health Primary Insurance: MEDICARE A & B Discharge Planning Comments: CM met with patient and her in the room to discuss discharge planning. She states she lives independently with her . States she no longer drives, her drives her where she needs to go. I discussed the availability of rehab, SNF, home health and additional needs. She states she plans to discharge home with resumption of [facility] home health out of [place] and feels this is a safe discharge plan. CM will continue to follow and assist with discharge planning/needs. Air Defense Artillery Senior Sergeant: Jennifer Bell DCPIA - Discharge Planning Initial Assessment Updated by [email or web address]: Jennifer Bell on 11/30/18 3:33 pm * Is the patient Alert and Oriented? Yes * How many steps to enter\exit or inside your home? Ramp/0 * PCP Dr. Pena * Pharmacy [place] * Preadmission Environment Home with Family * ADLs Independent * Equipment Bedside Commode Elevated Toliet Seat Rolling Walker Shower Chair Wheelchair * List name and contact numbers for known caregivers / representatives who currently or will assist patient after discharge: John - - [phone] * Verbal permission to speak to the caregivers and representatives has been obtained from the patient. Yes * Community resources currently utilized Home Health * Please name any agencies selected above. [facility] ([place]) * Additional services required to return to the preadmission environment? No * Can the patient safely return to the preadmission environment? Yes * Has this patient been hospitalized within the prior 30 days at any hospital? No External Providers External Provider: [facility] Next Contact Date: Service Request Date: Service Type: Resolution: Reviewer: Comments: Last DP export: 11/30/18 2:46 p Patient Name: RAFAEL PETTY Page 75622 at 0932 All edits/amendments must be made on the electronic document DICTATION DATE: 12/08/18930 PAPER FOLDING MACHINE OPERATOR: MELANY 12/08/18930 RPT#: [id number] DC DATE: STATUS: ADM IN [facility] [address] [place] [address] END OF REPORT
[2018-12-08 09:35] VITALS: BP 163/111
--- NOTE | 2018-12-08 10:15 | NUR ---
PT WAS MEDICATED WITH PERCOCET AT THIS TIME FOR C/O ABD PAIN. C/L IN REACH AT BEDSIDE.
--- NOTE | 2018-12-08 10:31 | NUR ---
PT C/O BLOATING FEELING SINCE FEEDS WERE TURNED UP TO 60, PER ORDERS FEED IS STILL AT 30, TURNED DOWN TO 30. PT STATED PER DR STEELE SHE CAN JUST DO FEEDINGS FROM [id number] DAILY THEN TURNED OFF UNTIL 1800. NO NOTES SEEN IN REGARDS TO THIS, WILL HAVE DR STEELE PAGED TO VERIFY. CONTINUE WITH PLAN OF CARE
--- NOTE | 2018-12-08 10:34 | MORECARE ---
CASE MANAGEMENT DISCHARGE SUMMARY PATIENT: RAFAEL PETTY MARICEL UNIT: [id number] ADM DATE: 11/30/18 AGE: 43 : 75 SEX: F ROOM/BED: D.2236 AUTHOR: ROBERTO CRISTOBAL PHYSICIAN: REFERRING PHYSICIAN: AGUSTIN LAGUNAS MD DATE OF SERVICE: 12/08/18 Discharge Plan Patient Name: RAFAEL PETTY Facility: [facility]:[place] : 1975 Planned Disposition: Home with Home Health Anticipated Discharge Date: 11/30/18 Discharge Date: Expected LOS: 1 Initial Reviewer: [email or web address] Initial Review Date: 11/30/2018 Generated: 12/08/18 11:34 am Comments DCP- Discharge Planning Updated by [email or web address]: Jennifer Bell on 12/08/18 9:[address] Spoke with patient and her spouse about discharge planning. I informed her on inpatient rehab and skilled therapy and she would like to go to [facility] Re[facility]. I spoke with Atiya and informed she is ready for discharge today, clinical faxed. CM will continue to follow and assist with discharge planning/needs. DCP- Discharge Planning Updated by [email or web address]: Jennifer Bell on 11/30/18 2:[address] Patient Name: RAFAEL PETTY Admission Status: ER Accout number: [id number] Admission Date: 11-30-2018 : 1975 Admission Diagnosis: Attending: AGUSTIN LAGUNAS Current LOS: 1 Anticipated DC Date: 11-30-2018 Planned Disposition: Home with Home Health Primary Insurance: MEDICARE A & B Discharge Planning Comments: CM met with patient and her in the room to discuss discharge planning. She states she lives independently with her . States she no longer drives, her drives her where she needs to go. I discussed the availability of rehab, SNF, home health and additional needs. She states she plans to discharge home with resumption of [facility] home health out of [place] and feels this is a safe discharge plan. CM will continue to follow and assist with discharge planning/needs. Ear Muff Assembler: Jennifer Bell DCPIA - Discharge Planning Initial Assessment Updated by [email or web address]: Jennifer Bell on 11/30/18 3:33 pm * Is the patient Alert and Oriented? Yes * How many steps to enter\exit or inside your home? Ramp/0 * PCP Dr. Pena * Pharmacy [place] * Preadmission Environment Home with Family * ADLs Independent * Equipment Bedside Commode Elevated Toliet Seat Rolling Walker Shower Chair Wheelchair * List name and contact numbers for known caregivers / representatives who currently or will assist patient after discharge: John morales - [phone] * Verbal permission to speak to the caregivers and representatives has been obtained from the patient. Yes * Community resources currently utilized Home Health * Please name any agencies selected above. [employer] [facility] ([place]) * Additional services required to return to the preadmission environment? No * Can the patient safely return to the preadmission environment? Yes * Has this patient been hospitalized within the prior 30 days at any hospital? No Last DP export: 12/08/18 8:31 a Patient Name: RAFALE PETTY Page 25320 at 1034 All edits/amendments must be made on the electronic document DICTATION DATE: 12/08/18 1034 DIGITAL STRATEGY SPECIALIST: MELANY 12/08/18 1034 RPT#: [id number] DC DATE: STATUS: ADM IN [facility] [address] [place] [address] END OF REPORT
--- NOTE | 2018-12-08 10:40 | OP ---
PATIENT NAME: RAFAEL PETTY MEDICAL RECORD: [id number] :[birth year] LOCATION:D.MS [id number] ADMISSION DATE:11/30/18 SURGEON: COLLEEN STEELE MD DATE OF OPERATION: 12/07/2018 SURGEON: Colleen Steele MD CSO: Gail Jacinto APN PREOPERATIVE DIAGNOSES: Dysphagia, multiple sclerosis, intractable reflux. POSTOPERATIVE DIAGNOSES: Dysphagia, multiple sclerosis, intractable reflux. PROCEDURE PERFORMED: Diagnostic laparoscopy and laparoscopic jejunostomy tube placement. ANESTHESIA: General. COMPLICATIONS: None. SPECIMENS: None. Case was clean-contaminated. OPERATIVE COURSE: After consent was obtained, the patient was taken to the operating room and placed in supine position on the operating table. The abdomen was prepped and draped in typical sterile fashion. A timeout was taken to confirm the correct patient and procedure. Local anesthetic was injected in the right upper quadrant at Patten's point. Using a 5-mm bladeless optical trocar, the abdomen was entered under direct laparoscopic vision. Adequate pneumoperitoneum was achieved. The abdominal cavity was inspected. No evidence of bowel injury. No evidence of bleeding. The left lobe of liver was elevated. The gastric sleeve appeared within normal limits. A few adhesions and omentum were taken off the anterior abdominal wall. The jejunum was densely adherent to the anterior abdominal wall at the previous jejunostomy tube site. Two additional 5-mm trocars were placed in the abdomen in direct laparoscopic vision. The previous jejunostomy site was opened with the 11-blade scalpel using a blunt dissector. The tract was bluntly dissected through the rectus muscle. A dilator was passed through the skin opening and into the lumen of the jejunostomy, which confirmed with laparoscopic vision. At this time, a 20-Mauritian jejunostomy tube was placed through the skin incision and into the distal limb of the jejunum. The tube was advanced using gentle retraction of the small bowel with bowel graspers. The balloon was inflated and was secured to skin with 2-0 Prolene suture. The J-tube was aspirated and flushed with return of saline and succuss to confirm placement. At this time, the bowel was run. There was no evidence of bowel injury. No evidence of bleeding. The balloon was deflated. All instruments removed. The abdomen was deflated. Trocars removed. Skin was closed with 4-0 Monocryl, Mastisol, and Steri-Strips. At the end of the case, all needle and instrument counts were correct. No complications occurred. The patient extubated and transferred to PACU in stable condition. TRANSINT:[id number] Voice Confirmation ID: [id number] DOCUMENT ID: [id number] OPERATIVE REPORT [id number] RAFAEL PETTY,COLLEEN Hummel MD at 1040 CC: [id number] DICTATION DATE: 12/07/181423 RELATIONS LIAISON: 12/07/18 2251 ADM IN [place] [id number] [place] [address]
--- NOTE | 2018-12-08 10:42 | NUR ---
SPOKE TO DR STEELE IN REGARDS TO PT CONCERN AND REQUEST, PER DR STEELE, THIS HAS BEEN DISCUSSED WITH PT, PT NURSE AND MYSELF. PT IS TO HAVE CONTINUOUS FEEDINGS WHILE HERE IN HOSPITAL AND THEN DO NOCTURNAL FEEDINGS WHEN DC HOME, REITERATED THIS TO PT AND SPOUSE AND BOTH VERBALIZED UNDERSTANDING, ALSO ADVISDED THAT PER DR STEELE, TURNED FEEDINGS DOWN TO 45 TO ASSIST WITH PT FELLING BLOATED. CL IN REACH ALL QUESTIONS ANSWERED, CONTINUE WITH PLAN OF CARE
--- NOTE | 2018-12-08 12:37 | NUR ---
Nutrition Follow Up: Pt and spouse were asleep at the time of RD visit. Spoke with nursing who reported that TF rate had to be decreased due to pt c/o feeling full. Current TF regimen: Osmolite 1.0 with goal rate of 60 ml/hr, 50 ml Q4H H2O flush. BM: 12/07/18 Labs reviewed Meds noted including Procalamine @ 30 ml/hr - per MD note to be weaned Rec continue advancing TF 10 ml every 6-8 hours as tolerated to goal rate. RD following.
[2018-12-08 13:24] VITALS: BP 112/79
--- NOTE | 2018-12-08 14:55 | NUR ---
I have reviewed this patient and I concur with the Shift Assessment completed by the Licensed Practical Nurse today this shift.
[2018-12-08 17:46] VITALS: BP 129/86
[2018-12-08 20:00] VITALS: BP 143/95
--- NOTE | 2018-12-08 20:15 | NUR ---
AWAKE,ALERT.NO COMPLAITNS VOICED AT THIS TIME. IV INFUSING TO LEFT PORT WITHOUT REDNESS OR EDEMA NOTED. OSMOLITE INFUSING TO J-TUBE AT 55 CC/HR. TOLERATING FEEDING WELL. NO DISTRESS NOTED. CL IN REACH
[2018-12-09] VITALS: BP 119/71
--- NOTE | 2018-12-09 02:50 | NUR ---
I have reviewed this patient and I concur with the Shift Assessment completed by the Licensed Practical Nurse today this shift.
[2018-12-09 04:00] VITALS: BP 116/70
[2018-12-09 05:45] LABS: BASOPHILS 0.2 % (0-2); EOSINOPHILS 1.9 % (0-7); HEMATOCRIT 26.7 % (36.0-48.0); IMMATURE GRANULOCYTES 0.2 % (0-5); LYMPHOCYTES 42.1 % (15-50); MCH 28.4 pg (26.0-34.0); MCHC 31.5 g/dL (31.0-37.0); MCV 90.2 fL (80.0-100.0); MEAN PLATELET VOLUME 10.2 fL (7.4-10.4); MONOCYTES 9.2 % (2-11); NEUTROPHILS 46.4 % (40-80); RBC 2.96 10x6/uL (4.00-5.40); RDW 14.5 % (11.5-14.5)
[2018-12-09 05:47] LABS: HEMOGLOBIN 8.4 g/dL (12-16); PLATELET COUNT 233 10x3/uL (130-400); WBC 5.4 10x3/uL (4.8-10.8)
[2018-12-09 05:54] LABS: CALCIUM 8.4 mg/dL (8.5-10.1); CARBON DIOXIDE 27.9 mmol/L (21.0-32.0); CHLORIDE - SERUM 106 mmol/L (98-107); CREATININE - SERUM 0.7 mg/dL (0.6-1.3); GLUCOSE 118 mg/dL (74-106); SODIUM 138 mmol/L (136-145); eGFR NON AFRICAN AMERICAN > 90 mL/min (90-120)
[2018-12-09 06:04] LABS: CALC OSMOLALITY 279 mosm/kg (275-300); POTASSIUM - SERUM 4.2 mmol/L (3.5-5.1); UREA NITROGEN 20 mg/dL (7-18)
--- NOTE | 2018-12-09 07:15 | NUR ---
REC'D IN WALKING ROUND AWAKE AND ALERT. RESP EVEN AND UNLABORED WITH NO DISTRESS NOTED. CAN EXPRESS NEEDS AND WANTS WITH NONE NOTED OR VOICED. ASSESSMENT COMPLETED. C/L IN REACH AT BEDSIDE.
--- NOTE | 2018-12-09 08:52 | MORECARE ---
CASE MANAGEMENT DISCHARGE SUMMARY PATIENT: RAFAEL PETTY MARICEL UNIT: [id number] ADM DATE: 11/30/18 AGE: 43 : 75 SEX: F ROOM/BED: D.2236 AUTHOR: ROBERTO CRISTOBAL PHYSICIAN: REFERRING PHYSICIAN: AGUSTIN LAGUNAS MD DATE OF SERVICE: 12/09/18 Discharge Plan Patient Name: RAFAEL PETTY Facility: [facility]:[place] : 1975 Planned Disposition: Home with Home Health Anticipated Discharge Date: 11/30/18 Discharge Date: Expected LOS: 1 Initial Reviewer: [email or web address] Initial Review Date: 11/30/2018 Generated: 12/09/18 9:51 am Comments DCP- Discharge Planning Updated by [email or web address]: Jennifer Bell on 12/08/18 9:[address] Spoke with patient and her spouse about discharge planning. I informed her on inpatient rehab and skilled therapy and she would like to go to [facility] Rehab. I spoke with Atiya and informed she is ready for discharge today, clinical faxed. CM will continue to follow and assist with discharge planning/needs. DCP- Discharge Planning Updated by [email or web address]: Jennifer Bell on 11/30/18 2:[address] Patient Name: RAFAEL PETTY Admission Status: ER Accout number: [id number] Admission Date: 11-30-2018 : 1975 Admission Diagnosis: Attending: AGUSTIN LAGUNAS Current LOS: 1 Anticipated DC Date: 11-30-2018 Planned Disposition: Home with Home Health Primary Insurance: MEDICARE A & B Discharge Planning Comments: CM met with patient and her in the room to discuss discharge planning. She states she lives independently with her . States she no longer drives, her drives her where she needs to go. I discussed the availability of rehab, SNF, home health and additional needs. She states she plans to discharge home with resumption of [facility] home health out of [place] and feels this is a safe discharge plan. CM will continue to follow and assist with discharge planning/needs. Electronic Publishing Specialist: Jennifer Bell DCPIA - Discharge Planning Initial Assessment Updated by [email or web address]: Jennifer Bell on 11/30/18 3:33 pm * Is the patient Alert and Oriented? Yes * How many steps to enter\exit or inside your home? Ramp/0 * PCP Dr. Pena * Pharmacy [place] * Preadmission Environment Home with Family * ADLs Independent * Equipment Bedside Commode Elevated Toliet Seat Rolling Walker Shower Chair Wheelchair * List name and contact numbers for known caregivers / representatives who currently or will assist patient after discharge: John morales - [phone] * Verbal permission to speak to the caregivers and representatives has been obtained from the patient. Yes * Community resources currently utilized Home Health * Please name any agencies selected above. [employer] [facility] ([place]) * Additional services required to return to the preadmission environment? No * Can the patient safely return to the preadmission environment? Yes * Has this patient been hospitalized within the prior 30 days at any hospital? No External Providers External Provider: [facility] Next Contact Date: Service Request Date: Service Type: Resolution: Reviewer: Comments: Last DP export: 12/08/18 9:34 a Patient Name: RAFAEL PETTY Page 23231 at 0852 All edits/amendments must be made on the electronic document DICTATION DATE: 12/09/18850 TRAPPER BIRD: MELANY 12/09/18850 RPT#: [id number] DC DATE: STATUS: ADM IN [facility] [address] [place] [address] END OF REPORT
--- NOTE | 2018-12-09 08:59 | MORECARE ---
CASE MANAGEMENT DISCHARGE SUMMARY PATIENT: RAFAEL PETTY MARICEL UNIT: [id number] ADM DATE: 11/30/18 AGE: 43 : 75 SEX: F ROOM/BED: D.2236 AUTHOR: ROBERTO CRISTOBAL PHYSICIAN: REFERRING PHYSICIAN: AGUSTIN LAGUNAS MD DATE OF SERVICE: 12/09/18 Discharge Plan Patient Name: RAFAEL PETTY Facility: [facility]:[place] : 1975 Planned Disposition: Home with Home Health Anticipated Discharge Date: 11/30/18 Discharge Date: Expected LOS: 1 Initial Reviewer: [email or web address] Initial Review Date: 11/30/2018 Generated: 12/09/18 9:59 am Comments DCP- Discharge Planning Updated by [email or web address]: Jennifer Ray on 12/09/18 7:[address] Called Ismaar at [facility] and Rehab. She states they are not accepting the patient and is unsure why. I spoke with the patient, she would like to try to go to [facility]. I spoke with Neelima and referral sent. Inpatient referral sent as well. CM will continue to follow and assist with discharge planning/needs. DCP- Discharge Planning Updated by [email or web address]: Jennifer Ray on 12/08/18 9:[address] Spoke with patient and her spouse about discharge planning. I informed her on inpatient rehab and skilled therapy and she would like to go to [facility] and Rehab. I spoke with Atiya and informed she is ready for discharge today, clinical faxed. CM will continue to follow and assist with discharge planning/needs. DCP- Discharge Planning Updated by [email or web address]: Jennifer Ray on 11/30/18 2:[address] Patient Name: RAFAEL PETTY Admission Status: ER Accout number: [id number] Admission Date: 11-30-2018 : 1975 Admission Diagnosis: Attending: AGUSTIN LAGUNAS Current LOS: 1 Anticipated DC Date: 11-30-2018 Planned Disposition: Home with Home Health Primary Insurance: MEDICARE A & B Discharge Planning Comments: CM met with patient and her in the room to discuss discharge planning. She states she lives independently with her . States she no longer drives, her drives her where she needs to go. I discussed the availability of rehab, SNF, home health and additional needs. She states she plans to discharge home with resumption of [employer] [facility] out of [place] and feels this is a safe discharge plan. CM will continue to follow and assist with discharge planning/needs. Admissions Evaluator: Jennifer Bell DCPIA - Discharge Planning Initial Assessment Updated by [email or web address]: Jennifer Bell on 11/30/18 3:33 pm * Is the patient Alert and Oriented? Yes * How many steps to enter\exit or inside your home? Ramp/0 * PCP Dr. Pena * Pharmacy [place] * Preadmission Environment Home with Family * ADLs Independent * Equipment Bedside Commode Elevated Toliet Seat Rolling Walker Shower Chair Wheelchair * List name and contact numbers for known caregivers / representatives who currently or will assist patient after discharge: John morales - [phone] * Verbal permission to speak to the caregivers and representatives has been obtained from the patient. Yes * Community resources currently utilized Home Health * Please name any agencies selected above. [employer] [facility] ([place]) * Additional services required to return to the preadmission environment? No * Can the patient safely return to the preadmission environment? Yes * Has this patient been hospitalized within the prior 30 days at any hospital? No Last DP export: 12/09/18 7:52 a Patient Name: RAFAEL PETTY Page 20101 at 0859 All edits/amendments must be made on the electronic document DICTATION DATE: 12/09/18857 TECHNOLOGY ANALYST: MELANY 12/09/18857 RPT#: [id number] DC DATE: STATUS: ADM IN [facility] [address] [place] [address] END OF REPORT
[2018-12-09 09:57] VITALS: BP 113/89
--- NOTE | 2018-12-09 09:57 | MORECARE ---
CASE MANAGEMENT DISCHARGE SUMMARY PATIENT: RAFAEL PETTY MARICEL UNIT: [id number] ADM DATE: 11/30/18 AGE: 43 : 75 SEX: F ROOM/BED: D.2236 AUTHOR: ROBERTO CRISTOBAL PHYSICIAN: REFERRING PHYSICIAN: AGUSTIN LAGUNAS MD DATE OF SERVICE: 12/09/18 Discharge Plan Patient Name: RAFAEL PETTY Facility: [facility]:[place] : 1975 Planned Disposition: Home with Home Health Anticipated Discharge Date: 11/30/18 Discharge Date: Expected LOS: 1 Initial Reviewer: [email or web address] Initial Review Date: 11/30/2018 Generated: 12/09/18 10:57 am Comments DCP- Discharge Planning Updated by [email or web address]: Jennifer Bell on 12/09/18 8:[address] Neelima with [facility] called and states patient is out of skilled days so they cannot accept her. She states she will go to inpatient rehab if accepted. CM will continue to follow and assist with discharge planning/needs. DCP- Discharge Planning Updated by [email or web address]: Jennifer Bell on 12/09/18 7:[address] Called Isamar at [facility] and Rehab. She states they are not accepting the patient and is unsure why. I spoke with the patient, she would like to try to go to [facility]. I spoke with Neelima and referral sent. Inpatient referral sent as well. CM will continue to follow and assist with discharge planning/needs. DCP- Discharge Planning Updated by [email or web address]: Jennifer Bell on 12/08/18 9:[address] Spoke with patient and her spouse about discharge planning. I informed her on inpatient rehab and skilled therapy and she would like to go to [facility] Rehab. I spoke with Atiya and informed she is ready for discharge today, clinical faxed. CM will continue to follow and assist with discharge planning/needs. DCP- Discharge Planning Updated by [email or web address]: Jennifer Bell on 11/30/18 2:[address] Patient Name: RAFAEL PETTY Admission Status: ER Accout number: [id number] Admission Date: 11-30-2018 : 1975 Admission Diagnosis: Attending: AGUSTIN LAGUNAS Current LOS: 1 Anticipated DC Date: 11-30-2018 Planned Disposition: Home with Home Health Primary Insurance: MEDICARE A & B Discharge Planning Comments: CM met with patient and her in the room to discuss discharge planning. She states she lives independently with her . States she no longer drives, her drives her where she needs to go. I discussed the availability of rehab, SNF, home health and additional needs. She states she plans to discharge home with resumption of [facility] out of [place] and feels this is a safe discharge plan. CM will continue to follow and assist with discharge planning/needs. Associate Store Manager: Jennifer Bell DCPIA - Discharge Planning Initial Assessment Updated by [email or web address]: Jennifer Bell on 11/30/18 3:33 pm * Is the patient Alert and Oriented? Yes * How many steps to enter\exit or inside your home? Ramp/0 * PCP Dr. Pena * Pharmacy [facility] * Preadmission Environment Home with Family * ADLs Independent * Equipment Bedside Commode Elevated Toliet Seat Rolling Walker Shower Chair Wheelchair * List name and contact numbers for known caregivers / representatives who currently or will assist patient after discharge: John - - [phone] * Verbal permission to speak to the caregivers and representatives has been obtained from the patient. Yes * Community resources currently utilized Home Health * Please name any agencies selected above. [facility] ([place]) * Additional services required to return to the preadmission environment? No * Can the patient safely return to the preadmission environment? Yes * Has this patient been hospitalized within the prior 30 days at any hospital? No Last DP export: 12/09/18 7:59 a Patient Name: RAFAEL PETTY Page 32014 at 0957 All edits/amendments must be made on the electronic document DICTATION DATE: 12/09/18956 SECURITY SUPPORT ANALYST: MELANY 12/09/18956 RPT#: [id number] DC DATE: STATUS: ADM IN [facility] [address] [place] [address] END OF REPORT
--- NOTE | 2018-12-09 10:26 | NUR ---
REHAB PRESCREENING Rehab referral received and chart reviewed. Ms. Brannon is a good candidate for acute inpatient rehab. I will begin her paper screen and notify case management when approvals are in place. She will then be accepted to rehab when her physician feels she is appropriate for discharge. Thank you for this referral! Carmela Clark, HAZARDOUS MATERIALS ANALYST Rehab PD
--- NOTE | 2018-12-09 11:03 | MORECARE ---
CASE MANAGEMENT DISCHARGE SUMMARY PATIENT: RAFAEL PETTY MARICEL UNIT: [id number] ADM DATE: 11/30/18 AGE: 43 : 75 SEX: F ROOM/BED: D.2236 AUTHOR: LEVARDOC PHYSICIAN: REFERRING PHYSICIAN: AGUSTIN LAGUNAS MD DATE OF SERVICE: 12/09/18 Discharge Plan Patient Name: RAFAEL PETTY Facility: [facility]:[place] : 1975 Planned Disposition: Home with Home Health Anticipated Discharge Date: 11/30/18 Discharge Date: Expected LOS: 1 Initial Reviewer: [email or web address] Initial Review Date: 11/30/2018 Generated: 12/09/18 12:03 pm Comments DCP- Discharge Planning Updated by [email or web address]: Jennifer Bell on 12/09/18 9:[address] [facility] called and states they will accept patient to inpatient rehab today. I messaged Gail for a discharge order. Patient in agreement to discharge this am. Cm will continue to follow and assist with discharge planning/needs. DCP- Discharge Planning Updated by [email or web address]: Jennifer Bell on 12/09/18 8:[address] Neelima with [facility] called and states patient is out of skilled days so they cannot accept her. She states she will go to inpatient rehab if accepted. CM will continue to follow and assist with discharge planning/needs. DCP- Discharge Planning Updated by [email or web address]: Jennifer Bell on 12/09/18 7:[address] Isamar at [facility] and Rehab. She states they are not accepting the patient and is unsure why. I spoke with the patient, she would like to try to go to [facility]. I spoke with Neelima and referral sent. Inpatient referral sent as well. CM will continue to follow and assist with discharge planning/needs. DCP- Discharge Planning Updated by [id number]: Jennifer Bell on 12/08/18 9:[address] Spoke with patient and her spouse about discharge planning. I informed her on inpatient rehab and skilled therapy and she would like to go to [facility] and Rehab. I spoke with Atiya and informed she is ready for discharge today, clinical faxed. CM will continue to follow and assist with discharge planning/needs. DCP- Discharge Planning Updated by [id number]: Jennifer Bell on 11/30/18 2:[address] Patient Name: RAFAEL PETTY Admission Status: ER Accout number: [id number] Admission Date: 11-30-2018 : 1975 Admission Diagnosis: Attending: AGUSTIN LAGUNAS Current LOS: 1 Anticipated DC Date: 11-30-2018 Planned Disposition: Home with Home Health Primary Insurance: MEDICARE A & B Discharge Planning Comments: CM met with patient and her in the room to discuss discharge planning. She states she lives independently with her . States she no longer drives, her drives her where she needs to go. I discussed the availability of rehab, SNF, home health and additional needs. She states she plans to discharge home with resumption of [facility] out of [place] and feels this is a safe discharge plan. CM will continue to follow and assist with discharge planning/needs. Veterinary Meat Inspector: Jennifer Bell DCPIA - Discharge Planning Initial Assessment Updated by [email or web address]: Jennifer Bell on 11/30/18 3:33 pm * Is the patient Alert and Oriented? Yes * How many steps to enter\exit or inside your home? Ramp/0 * PCP Dr. Pena * [facility] * Preadmission Environment Home with Family * ADLs Independent * Equipment Bedside Commode Elevated Toliet Seat Rolling Walker Shower Chair Wheelchair * List name and contact numbers for known caregivers / representatives who currently or will assist patient after discharge: John - - [phone] * Verbal permission to speak to the caregivers and representatives has been obtained from the patient. Yes * Community resources currently utilized Home Health * Please name any agencies selected above. [facility] ([place]) * Additional services required to return to the preadmission environment? No * Can the patient safely return to the preadmission environment? Yes * Has this patient been hospitalized within the prior 30 days at any hospital? No Last DP export: 12/09/18 8:57 a Patient Name: RAFAEL PETTY Page [id number] at 1103 All edits/amendments must be made on the electronic document DICTATION DATE: 12/09/18 1103 METAL FITTERS AND MACHINISTS: MELANY 12/09/18 1103 RPT#: [id number] DC DATE: STATUS: ADM IN [facility] [address] [place] [address] END OF REPORT
[2018-12-09] MEDS ORDERED: PROTONIX40 MG PO (11:48)
--- NOTE | 2018-12-09 12:40 | MORECARE ---
CASE MANAGEMENT DISCHARGE SUMMARY PATIENT: RAFAEL PETTY MARICEL UNIT: [id number] ADM DATE: 11/30/18 AGE: 43 : 75 SEX: F ROOM/BED: D.2236 AUTHOR: LEVARDOC PHYSICIAN: REFERRING PHYSICIAN: AGUSTIN LAGUNAS MD DATE OF SERVICE: 12/09/18 Discharge Plan Patient Name: RAFAEL PETTY Facility: [facility]:[place] : 1975 Planned Disposition: Home with Home Health Anticipated Discharge Date: 11/30/18 Discharge Date: Expected LOS: 1 Initial Reviewer: [email or web address] Initial Review Date: 11/30/2018 Generated: 12/09/18 1:40 pm Comments DCP- Discharge Planning Updated by [email or web address]: Jennifer Marieroldan on 12/09/18 11:[address] Received order for discharge. She will discharge today to inpatient rehab, she is in agreement to plan. States she has already called and informed her that she is going downstairs today to inpatient rehab. CM will continue to follow and assist with discharge planning/needs. DCP- Discharge Planning Updated by [email or web address]: Jennifer Bell on 12/09/18 9:[address] [facility] called and states they will accept patient to inpatient rehab today. I messaged Gail for a discharge order. Patient in agreement to discharge this am. Cm will continue to follow and assist with discharge planning/needs. DCP- Discharge Planning Updated by [email or web address]: Jennifer Bell on 12/09/18 8:[address] Neelima with [facility] called and states patient is out of skilled days so they cannot accept her. She states she will go to inpatient rehab if accepted. CM will continue to follow and assist with discharge planning/needs. DCP- Discharge Planning Updated by [email or web address]: Jennifer Bell on 12/09/18 7:[address] Called Isamar at [facility] and Rehab. She states they are not accepting the patient and is unsure why. I spoke with the patient, she would like to try to go to [facility]. I spoke with Neelima and referral sent. Inpatient referral sent as well. CM will continue to follow and assist with discharge planning/needs. DCP- Discharge Planning Updated by [id number]: Jennifer Bell on 12/08/18 9:[address] Spoke with patient and her spouse about discharge planning. I informed her on inpatient rehab and skilled therapy and she would like to go to [facility] and Rehab. I spoke with Atiya and informed she is ready for discharge today, clinical faxed. CM will continue to follow and assist with discharge planning/needs. DCP- Discharge Planning Updated by [email or web address]: Jennifer Bell on 11/30/18 2:[address] Patient Name: RAFAEL PETTY Admission Status: ER Accout number: [id number] Admission Date: 11-30-2018 : 1975 Admission Diagnosis: Attending: AGUSTIN LAGUNAS Current LOS: 1 Anticipated DC Date: 11-30-2018 Planned Disposition: Home with Home Health Primary Insurance: MEDICARE A & B Discharge Planning Comments: CM met with patient and her in the room to discuss discharge planning. She states she lives independently with her . States she no longer drives, her drives her where she needs to go. I discussed the availability of rehab, SNF, home health and additional needs. She states she plans to discharge home with resumption of [facility] out of [place] and feels this is a safe discharge plan. CM will continue to follow and assist with discharge planning/needs. Early Intervention Specialist: Jennifer Bell DCPIA - Discharge Planning Initial Assessment Updated by [email or web address]: Jennifer Bell on 11/30/18 3:33 pm * Is the patient Alert and Oriented? Yes * How many steps to enter\exit or inside your home? Ramp/0 * PCP Dr. Pena * Pharmacy [place] * Preadmission Environment Home with Family * ADLs Independent * Equipment Bedside Commode Elevated Tol[place] Seat Rolling Walker Shower Chair Wheelchair * List name and contact numbers for known caregivers / representatives who currently or will assist patient after discharge: John - - [phone] * Verbal permission to speak to the caregivers and representatives has been obtained from the patient. Yes * Community resources currently utilized Home Health * Please name any agencies selected above. [facility] ([place]) * Additional services required to return to the preadmission environment? No * Can the patient safely return to the preadmission environment? Yes * Has this patient been hospitalized within the prior 30 days at any hospital? No Coverage Notice Reviewer: [id number] Noemy Jennifer Ray Notice Issued Date-Time: 12/09/2018 12:35 Notice Type: IM Discharge Notice Notice Delivered To: Patient Relationship to Patient: Self Recoating Machine Operator Name: Delivery Method: HAND - Hand Delivered Anita Days: Prior Verbal Notification: Recipient Understood Notice: Yes Recipient Signature: Yes Med Rec Note Co-signed by Attending: Coverage Notice Comment: IMM explained, signed, given, copy placed in MR Last DP export: 12/09/18 10:03 a Patient Name: RAFAEL PETTY Page [phone] at 1240 All edits/amendments must be made on the electronic document DICTATION DATE: 12/09/18 1240 SHOE LACER: MELANY 12/09/18 1240 RPT#: [id number] DC DATE: STATUS: ADM IN [facility] [address] [place] [address] END OF REPORT
[2018-12-09 14:20] VITALS: BP 119/75
--- NOTE | 2018-12-09 14:28 | NUR ---
I have reviewed this patient and I concur with the Shift Assessment completed by the Licensed Practical Nurse today this shift.
--- NOTE | 2018-12-09 15:18 | NUR ---
MEDICATED WITH PERCOCET @ 1420 FOR C/O SHOULDER AND ABD PAIN. C/L IN REACH T BEDSIDE
--- NOTE | 2018-12-09 15:18 | NUR ---
DC DOWN TO IN HOUSE REHAB ROOM 1111 B. IN STABLE CONDITION UPON DC CAN VOICE NEEDS AND WANTS. NO C/O NOTED OR VOICED.
== END 2018-12-09 16:41 | DRG 344 ==
LOC: D.ER 00:06 → D.EDHOLD 04:28 → OBSVTIME 04:28 → D.MS 04:43
PROVIDERS: Emergency Medicine; Family Medicine; Internal Medicine Gastroenterology; Internal Medicine Nephrology; Surgery; ADMIT Surgery; ATTEND Surgery
PROC: 0D9A40Z Drainage of Jejunum with Drainage Device, Percutaneous Endoscopic Approach (ICD-10-PCS; principal; 2018-12-07 13:45)
DX: K56.609 Unspecified intestinal obstruction, unspecified as to partial versus complete obstruction (principal); E43 Unspecified severe protein-calorie malnutrition; E11.9 Type 2 diabetes mellitus without complications; R47.02 Dysphasia; G35 Multiple sclerosis; I10 Essential (primary) hypertension; J45.909 Unspecified asthma, uncomplicated; E86.0 Dehydration; E11.40 Type 2 diabetes mellitus with diabetic neuropathy, unspecified

== ENCOUNTER 2018-12-09 15:00 | Inpatient (IN) | payer MEDICARE ==
[~2018-12-09] VITALS: Ht 162.6 cm; Wt 57.3 kg
[2018-12-09 18:00] VITALS: BP 129/94; BMI 19.2
--- NOTE | 2018-12-09 19:18 | NUR ---
PATIENT IS RESTING IN HER BED. SHE DENIES ANY NEEDS. BED IS DOWN LOW WITH SIDE RAILS UP X2. CALL LIGHT IS IN REACH.
[2018-12-09 21:13] VITALS: BP 116/79
--- NOTE | 2018-12-10 00:04 | NUR ---
PATIENT IS SLEEPING. BED IS DOWN LOW WITH SIDE RAILS UP X2. CALL LIGHT IN REACH.
--- NOTE | 2018-12-10 04:04 | NUR ---
PATIENT IS SLEEPING. BED IS DOWN LOW AND CALL LIGHT IS IN REACH.
[2018-12-10 06:40] LABS: BASOPHILS 0.3 % (0-2); EOSINOPHILS 1.7 % (0-7); HEMOGLOBIN 9.5 g/dL (12-16); IMMATURE GRANULOCYTES 0.6 % (0-5); LYMPHOCYTES 33.8 % (15-50); MCH 28.5 pg (26.0-34.0); MCHC 30.6 g/dL (31.0-37.0); MEAN PLATELET VOLUME 10.2 fL (7.4-10.4); MONOCYTES 6.4 % (2-11); NEUTROPHILS 57.2 % (40-80); RBC 3.33 10x6/uL (4.00-5.40); RDW 14.7 % (11.5-14.5)
[2018-12-10 06:54] LABS: MCV 93.1 fL (80.0-100.0); PLATELET COUNT 336 10x3/uL (130-400)
[2018-12-10 06:57] LABS: CALC OSMOLALITY 289 mosm/kg (275-300); CALCIUM 8.8 mg/dL (8.5-10.1); CARBON DIOXIDE 28.5 mmol/L (21.0-32.0); CHLORIDE - SERUM 106 mmol/L (98-107); CREATININE - SERUM 0.8 mg/dL (0.6-1.3); GLUCOSE 151 mg/dL (74-106); POTASSIUM - SERUM 4.2 mmol/L (3.5-5.1); SODIUM 141 mmol/L (136-145); UREA NITROGEN 28 mg/dL (7-18); eGFR NON AFRICAN AMERICAN 83 mL/min (90-120)
--- NOTE | 2018-12-10 08:00 | NUR ---
PATIENT IS ALERT/ORIENT. CALL LIGHT WITHIN REACH. VOICES NO NEEDS AT THIS TIME. WILL CONTINUE WITH PLAN OF CARE
[2018-12-10 08:32] VITALS: BP 120/80
--- NOTE | 2018-12-10 09:30 | NUR ---
OCCUPATIONAL THERAPIST IN ROOM. HELPING PATIENT GIVING OT SHOWER
[2018-12-10 10:41] VITALS: Ht 162.6 cm; Wt 57.3 kg
--- NOTE | 2018-12-10 13:10 | NUR ---
PRN PERCOCET GIVEN FOR BACK PAIN PER PATIENT REQUEST. PATIENT HAS SIGNED A RELEASE OF RESPONSIBILTIY FOR BED/CHAIR
--- NOTE | 2018-12-10 15:36 | NUR ---
THIS NURSE PAGED DR STEELE IN REGARDS TO J TUBE. J-TUBE CHANGED THREE TIMES TODAY. LARGE AMOUNT OF GREEN, FOUL SMELLING DRAINAGE FOR J-TUBE SITE
--- NOTE | 2018-12-10 16:12 | NUR ---
J TUBE FEEDING STARTED. OSMOLITE 1.0 RUNNING AT 60CC/HR.
[2018-12-10 19:38] VITALS: BP 143/69
--- NOTE | 2018-12-10 19:47 | NUR ---
AWAKE AND ALERT. SITTING ON SIDE OF BED. J-TUBE IN PLACE WITH OSMOLITE INFUSING PER PUMP AT 60CC/HOUR. DRESSING TO PEG SITE DRY AND INTACT TO SITE. NO ACUTE DISTRESS NOTED. CALL LIGHT IN REACH.
--- NOTE | 2018-12-10 21:52 | NUR ---
C/O VOMITING STATES THIS IS THE SECOND TIME IN THE LAST FEW HOURS. NOTED LIQUID EMESIS IN TRASH CAN. ZOFRAN 4MG GIVEN PO AND J-TUBE FEEDING ON HOLD FOR NOW. STATES SHE ATE A HAMBURGER EARLIER THIS EVENING. WILL CONTINUE TO MONITOR.
--- NOTE | 2018-12-11 03:05 | NUR ---
AWAKE RESTING IN BED. HAS NOT SLEPT ANY SO FAR THIS SHIFT. FAMILY IN ROOM. DRAINAGE NOTED FROM J-TUBE SITE. DRESSING TO J-TUBE SITE CHANGED. FEEDING REMAINS OFF DUE TO PATIENT C/O NAUSEA AND VOMITING.
--- NOTE | 2018-12-11 04:57 | NUR ---
RECENTLY MEDICATED FOR PAIN AND J-TUBE FEEDING RESUMED WITH PATIENT STATING SHE HAD NOT HAD ANY NAUSEA OR VOMITING IN LAST TWO HOURS. HAS SLEPT VERY LITTLE THIS SHIFT. NO ACUTE DISTRESS NOTED.
[2018-12-11 07:47] VITALS: BP 126/92
--- NOTE | 2018-12-11 10:06 | NUR ---
PATIENT ALERT AND ORIENTED THIS MORNING, SITTING ON SIDE OF BED. SON AND DAUGHTER IN ROOM WITH HER. PATIENT C/O NAUSEA AND WAS MEDICATED WITH PRN ZOFRAN. TUBE FEEDING TURNED OFF 30 MINUTES EARLY DUE TO NAUSEA. PATIENT EATING FOOD BROUGHT IN BY SON AND DAUGHTER BUT ONLY ATE A FEW BITES OF HER BREAKFAST, C/O PAIN TO LOWER BACK AND WAS MEDICATED WTIH PRN PRECOCET WITH GOOD RESULTS. JT SITE LEAKING LARGE AMOUNTS OF BILE COLORED DRAINAGE. DRESSING CHANGED. AREA AROUND JT SITE EXCORAITATED. RESTING QUIETLY AT THIS TIME WITH CHILDREN AT BEDSIDE. WILL CONTINUE TO MONITOR. CALL LIGHT WITHIN REACH.
--- NOTE | 2018-12-11 12:53 | NUR ---
ATE 20% OF LUNCH. STATES SHE GETS FULL QUICKLY. C/O PAIN TO LOWER BACK. MEDICATED WITH PRN PERCOCET. SITTING UP IN BED VISITING WITH CHILDREN. WILL CONTINUE TO MONITOR.
--- NOTE | 2018-12-11 18:20 | NUR ---
TUBE FEEDING STARTED AT 1630 AND AFTER PATIENT ATE 20% OF SUPPER SHE THREW UP. TUBE FEEDING TURNED OFF AND PRN ZOFRAN GIVEN. WILL CONTINUE TO MONITOR.
[2018-12-11 19:14] VITALS: BP 155/108
--- NOTE | 2018-12-11 19:21 | NUR ---
AWAKE AND ALERT. SITTING ON SIDE OF BED. RESPIRATIONS UNLABORED. J- TUBE IN PLACE WITH DRESSING DRY AND INTACT. J-TUBE FEEDING OF OSMOLITE IS ON HOLD FOR NOW DUE TO C/O NAUSEA AND VOMITING SEVERAL TIMES. SHE STATES SHE IS STILL NAUSEATE. WAS MEDICATED WITH ZOFRAN AT 1800. WILL CONTINUE TO MONITOR. CALL LIGHT IN REACH.
--- NOTE | 2018-12-12 01:25 | NUR ---
RECENTLY MEDICATED FOR PAIN AND NAUSEA. STATES SHE IS STILL HURTING SOME AT J-TUBE SITE. WANTS TUBE FEEDING STOPPED FOR A WHILE, OSMOLITE VIA PUMP STOPPED FOR NOW AND WILL CONTINUE TO MONITOR.
--- NOTE | 2018-12-12 05:24 | NUR ---
MEDICATED FOR PAIN. DRESSING CHANGED TO J-TUBE SITE. NOTED LIGHT BROWN FOUL SMELLING DRAINAGE. CONTINUES TO REFUSE J-TUBE FEEDING AT THIS TIME. NOTED EATING SNACKS PO IN ROOM.
--- NOTE | 2018-12-12 07:30 | NUR ---
ALERT AND ORIENTED. WO C/O PAIN. RESP EVEN AND UNLABORED. CL IN REACH.
[2018-12-12 07:50] LABS: BASOPHILS 0.4 % (0-2); EOSINOPHILS 2.6 % (0-7); HEMATOCRIT 31.7 % (36.0-48.0); HEMOGLOBIN 9.3 g/dL (12-16); IMMATURE GRANULOCYTES 0.4 % (0-5); MCH 27.8 pg (26.0-34.0); MCHC 29.3 g/dL (31.0-37.0); MCV 94.9 fL (80.0-100.0); MEAN PLATELET VOLUME 10.2 fL (7.4-10.4); MONOCYTES 5.6 % (2-11); PLATELET COUNT 343 10x3/uL (130-400); RBC 3.34 10x6/uL (4.00-5.40); RDW 14.7 % (11.5-14.5); WBC 8.2 10x3/uL (4.8-10.8)
[2018-12-12 08:00] VITALS: BP 131/91
[2018-12-12 08:03] LABS: ANION GAP 15.4 mmol/L (8-16); CALCIUM 8.7 mg/dL (8.5-10.1); CARBON DIOXIDE 24.2 mmol/L (21.0-32.0); POTASSIUM - SERUM 5.6 mmol/L (3.5-5.1)
--- NOTE | 2018-12-12 10:16 | NUR ---
PARTICIPATING IN THERAPY AT THIS TIME. NO DISTRESS NOTED.
--- NOTE | 2018-12-12 13:07 | NUR ---
Nutrition Follow Up: Pt reported that she is trying to eat what she can. She said that she is having abdominal pain and feeling of fullness. Pt stated that she has N/V throughout the night and nursing will hold nocturnal TF. RD encouraged pt to increase po intake as tolerated, make staff aware of food preferences, etc. Diet: Regular Gastric Soft; Osmolite 1.0 @ 30 ml/hr for 12 hours (nocturnal) PO Intake: 31% meal avg BM: 12/11/18 Labs reviewed Meds noted including Lasix Rec continue current diet, TF regimen. RD following.
--- NOTE | 2018-12-12 14:40 | NUR ---
PATIENT ADMITTED TO REHAB FROM ACUTE FLOOR. PATIENT PCP IS DR. ONEIL. DME AT HOME IS BEDSIDE COMMODE, WALKER, WHEELCHAIR AND SHOWER CHAIR. DISCHARGE PLANS ARE FOR HER TO RETURN HOME SHE HAS NO SNF DAYS AVAILABLE . SHE REQUEST [facility] AT DISCHARGE. WILL CONTINUE TO FOLLOW WITH PATIENT.
--- NOTE | 2018-12-12 15:33 | NUR ---
SHOWER GIVEN PER SIDE LASTER STAPLE.
--- NOTE | 2018-12-12 16:30 | NUR ---
NO CHANGE IN ASSESSMENT. RESP EVEN AND UNLAOBRED. NO DISTRESS NOTED. CL IN REACH.
--- NOTE | 2018-12-12 19:30 | NUR ---
PT IN BED EYES CLOSED, PEG FEED RUNNING AT 30ML/HR, NO NEEDS NOTED, CALL LIGHT WITHIN REACH
[2018-12-12 22:37] VITALS: BP 120/73
--- NOTE | 2018-12-13 00:42 | NUR ---
PT IN BED EYES CLOSED, BED LOW, FLUIDS AND CALL LIGHT WITHIN REACH
--- NOTE | 2018-12-13 01:00 | NUR ---
PT REQUESTING PAIN MEDICATION ABDOMEN BURNING DUE TO DRAINAGE FROM J-TUBE, DRSG CHANGED AREA SURROUNDING TUBE RED,IRRITATED, BURNING, LEAKING OSMOLITE AROUND TUBE SITE FLANGE, PT C/O FEELING OF FULLNESS AND BLOATING, TUBE FEED STOPPED AT PTS REQUEST. NO OTHER NEEDS NOTED, FLUIDS AND CALL LIGHT WITHIN REACH
[2018-12-13 06:30] LABS: BASOPHILS 0.4 % (0-2); EOSINOPHILS 2.7 % (0-7); HEMATOCRIT 31.1 % (36.0-48.0); HEMOGLOBIN 9.5 g/dL (12-16); IMMATURE GRANULOCYTES 0.3 % (0-5); LYMPHOCYTES 35.1 % (15-50); MCH 28.3 pg (26.0-34.0); MCHC 30.5 g/dL (31.0-37.0); MCV 92.6 fL (80.0-100.0); MEAN PLATELET VOLUME 9.6 fL (7.4-10.4); MONOCYTES 4.3 % (2-11); NEUTROPHILS 57.2 % (40-80); PLATELET COUNT 336 10x3/uL (130-400); RBC 3.36 10x6/uL (4.00-5.40); RDW 14.5 % (11.5-14.5); WBC 6.8 10x3/uL (4.8-10.8)
[2018-12-13 07:32] VITALS: BP 144/100
[2018-12-13 07:41] LABS: ANION GAP 11.5 mmol/L (8-16); CALCIUM 9.2 mg/dL (8.5-10.1); CARBON DIOXIDE 29.5 mmol/L (21.0-32.0)
--- NOTE | 2018-12-13 08:10 | NUR ---
PT AM MEDS ADMINISTERED. PT DENIES NEEDS. WCTM.
--- NOTE | 2018-12-13 08:42 | NUR ---
POTASSIUM NOTED 6.0. DOCTOR NOTIFIED. REDRAW ORDERED.
--- NOTE | 2018-12-13 19:48 | NUR ---
PT IN BED EYES OPEN, WATCHING TV, BED LOW, ALARM WAIVER,FLUIDS AND CALL LIGHT WITHIN REACH
[2018-12-13 21:29] VITALS: BP 134/89
--- NOTE | 2018-12-14 04:07 | NUR ---
PT IN BED, LOW POS. AROUSES EASILY TO VOICE, FLUIDS AND CALL LIGHT WITHIN REACH, NO NEEDS NOTED
--- NOTE | 2018-12-14 04:09 | NUR ---
PT IN BED, LOW POS, AROUSES EASILY TO VOICE, FLUIDS AND CALL LIGHT WITHIN REACH, NO NEEDS NOTED
[2018-12-14 07:58] VITALS: BP 125/89
--- NOTE | 2018-12-14 07:58 | NUR ---
PT IN THERAPY GYM EATING BREAKFAST, DENIES NEEDS. WCTM.
[2018-12-14 08:41] LABS: CALC OSMOLALITY 284 mosm/kg (275-300); CALCIUM 8.8 mg/dL (8.5-10.1); CARBON DIOXIDE 27.6 mmol/L (21.0-32.0); CHLORIDE - SERUM 105 mmol/L (98-107); CREATININE - SERUM 0.8 mg/dL (0.6-1.3); GLUCOSE 87 mg/dL (74-106); SODIUM 139 mmol/L (136-145); UREA NITROGEN 35 mg/dL (7-18); eGFR NON AFRICAN AMERICAN 83 mL/min (90-120)
[2018-12-14 08:42] LABS: POTASSIUM - SERUM 4.4 mmol/L (3.5-5.1)
[2018-12-14 08:58] LABS: BASOPHILS 0.5 % (0-2); EOSINOPHILS 3.3 % (0-7); HEMATOCRIT 27.6 % (36.0-48.0); HEMOGLOBIN 8.6 g/dL (12-16); IMMATURE GRANULOCYTES 0.5 % (0-5); LYMPHOCYTES 34.3 % (15-50); MCH 28.1 pg (26.0-34.0); MCHC 31.2 g/dL (31.0-37.0); MCV 90.2 fL (80.0-100.0); MEAN PLATELET VOLUME 10.2 fL (7.4-10.4); MONOCYTES 6.2 % (2-11); NEUTROPHILS 55.2 % (40-80); PLATELET COUNT 302 10x3/uL (130-400); RBC 3.06 10x6/uL (4.00-5.40); RDW 14.1 % (11.5-14.5); WBC 6.3 10x3/uL (4.8-10.8)
[2018-12-14 20:02] VITALS: BP 126/84
--- NOTE | 2018-12-14 21:36 | NUR ---
AWAKE AND ALERT. RESTING IN BED. RESPIRATIONS UNLABORED. PEG TUBE IN PLACE WITH OSMOLITE 1.0 INFUSING TO J-TUBE AT 30ML/HOUR. NO DISTRESS NOTED. CALL LIGHT IN REACH.
--- NOTE | 2018-12-15 05:57 | NUR ---
RESTING QUIETLY IN BED. J-TUBE FEEDING FINISHED FOR NOW. MEDICATED FOR PAIN SHORT TIME AGO. CLEAN DRESSING APPLIED TO J-TUBE SITE.
[2018-12-15 08:01] VITALS: BP 131/86
--- NOTE | 2018-12-15 08:15 | NUR ---
PT RESTING IN BED WITH EYES OPEN CALL LIGHT IN REACH WILL MONITER
--- NOTE | 2018-12-15 18:07 | NUR ---
PT RESTING IN BED WITH EYES OPEN CALL LIGHT IN REACH WILL MONITER
[2018-12-15 19:00] VITALS: BP 113/77
--- NOTE | 2018-12-15 19:48 | NUR ---
AWAKE AND ALERT. RESTING IN BED. J-TUBE IN PLACE BUT PATIENT ASK TO HOLD OFF ON STARTING FEEDING PER J-TUBE BECAUSE SHE ATE A LOT OF SUPPER AND IS TOO FULL. DRESSING WITH NOTED DRAINAGE TO J-TUBE SITE. NO ACUTE DISTRESS NOTED. CALL LIGHT IN REACH.
--- NOTE | 2018-12-15 21:39 | NUR ---
MEDICATED FOR PAIN. CONTINUES TO REFUSE OSMOLITE J-TUBE FEEDING STATING SHE IS STILL TOO FULL FROM SUPPER.
--- NOTE | 2018-12-16 05:25 | NUR ---
RESTING IN BED WITH NO DISTRESS NOTED. REFUSED J-TUBE FEEDING ALL NIGHT DUE TO FEELING FULL.
[2018-12-16 08:00] VITALS: BP 156/91
[2018-12-16 08:50] LABS: BASOPHILS 0.4 % (0-2); EOSINOPHILS 1.7 % (0-7); HEMATOCRIT 31.8 % (36.0-48.0); IMMATURE GRANULOCYTES 0.6 % (0-5); MCHC 31.4 g/dL (31.0-37.0); MCV 89.1 fL (80.0-100.0); MEAN PLATELET VOLUME 10.4 fL (7.4-10.4); MONOCYTES 6.6 % (2-11); NEUTROPHILS 55.7 % (40-80); PLATELET COUNT 253 10x3/uL (130-400); RBC 3.57 10x6/uL (4.00-5.40); RDW 14.2 % (11.5-14.5)
[2018-12-16 09:02] LABS: CALC OSMOLALITY 278 mosm/kg (275-300); CALCIUM 8.8 mg/dL (8.5-10.1); CARBON DIOXIDE 25.9 mmol/L (21.0-32.0); CHLORIDE - SERUM 102 mmol/L (98-107); CREATININE - SERUM 0.8 mg/dL (0.6-1.3); GLUCOSE 116 mg/dL (74-106); POTASSIUM - SERUM 5.1 mmol/L (3.5-5.1); SODIUM 136 mmol/L (136-145); UREA NITROGEN 29 mg/dL (7-18); eGFR NON AFRICAN AMERICAN 83 mL/min (90-120)
--- NOTE | 2018-12-16 09:35 | NUR ---
PT AM MEDS ADMINISTERED. PT WENDIE AVALOS. ROSA.
--- NOTE | 2018-12-16 14:45 | NUR ---
NUTRITION F/U PT REPORTS TOLERATING CURRENT DIET. NURSING REPORTS PO INTAKE 50 TO 100% OF MEALS. REFUSED J TUBE FEEDS LAST NITE. WILL CONTINUE TO PROVIDE DIET, OSMOLITE. RD FOLLOWING
--- NOTE | 2018-12-16 19:05 | NUR ---
PATIENT IS SLEEPING IN HER BED. BED IS DOWN LOW WITH SIDE RAILS UP X2. CALL LIGHT IN REACH.
[2018-12-16 19:28] VITALS: BP 112/75
--- NOTE | 2018-12-16 21:42 | NUR ---
PT IS RESTING IN BED WATCHING TV. NO NEEDS VOICED.
--- NOTE | 2018-12-16 23:48 | NUR ---
PT IS RESTING QUIETLY IN BED WITH EYES CLOSED. RESPS ARE EVEN AND UNLABORED. NO ACUTE DISTRESS NOTED.
--- NOTE | 2018-12-17 02:17 | NUR ---
RESTING IN BED WITH EYES CLOSED.
--- NOTE | 2018-12-17 06:20 | NUR ---
PT RESTING IN BED WITH EYES CLOSED. NO ACUTE DISTRESS NOTED.
--- NOTE | 2018-12-17 07:05 | NUR ---
RECEIVED PATIENT. SITTING UP IN BED ALERT AND ORIENTED X4. DENIES ANY NEEDS C/O MILD DISCOMFORT GENERALIZED. CALL LIGHT WITHIN REACH, FALL PRECAUTIONS IN PLACE
[2018-12-17 08:00] VITALS: BP 126/83
--- NOTE | 2018-12-17 08:30 | NUR ---
RESTING QUIETLY.CL IN REACH.
--- NOTE | 2018-12-17 09:18 | NUR ---
ADMININSTERED MORNING MEDS WHOLE WITHOUT DIFFICULTY. C/O PAIN 8/10 SHARP ACHING GENERALIZED.
--- NOTE | 2018-12-17 14:11 | NUR ---
SITTING UP IN W/C VISITING FAMILY. DENIES ANY NEEDS. NO S/S OF ACUTE DISTRESS NOTED. CALL LIGHT WITHIN REACH
--- NOTE | 2018-12-17 17:07 | NUR ---
SITTING UP IN BED WATCHING TV WITH FAMILY. DENIES ANY NEEDS. C/O PEG SITE PAIN 02/20 ACHING BURNING. REQUESTS PAIN MEDICATION INFORMED PT UNABLE TO ADMININSTER UNTIL 1729. PT VERBALIZED UNDERSTANDING. CALL LIGHT WITHIN REACH, FALL PRECAUTIONS IN PLACE
--- NOTE | 2018-12-17 18:11 | NUR ---
REFUSED HS FEEDING STATES THAT SHE FEELS VERY FULL. PT HAS HATE MAJORITY OF EVERY MEAL TODAY
--- NOTE | 2018-12-17 18:59 | NUR ---
PATIENT IS RESTING IN HER BED AND VISITING WITH HER DAUGHTER. HER BED IS DOWN LOW WITH SIDE RAILS UP X2. CALL LIGHT IS IN REACH.
[2018-12-17 19:45] VITALS: BP 106/75
--- NOTE | 2018-12-17 22:19 | NUR ---
RESTING QUIETLY IN BED WITH EYES CLOSED. RESPS ARE EVEN AND UNLABORED. NO ACUTE DISTRESS NOTED.
--- NOTE | 2018-12-18 04:27 | NUR ---
RESTING IN BED WITH EYES CLOSED.
[2018-12-18 08:00] VITALS: BP 114/72
--- NOTE | 2018-12-18 09:30 | NUR ---
ADMININSTERED MORNING MEDS WHOLE WITHOUT DIFFICULTY. REMOVED OLD DRESSING FROM [employer], CLEANSED WITH WOUND CLEANSER, PAT DRY WITH 4X4. APPLIED NYSTATIN OINTMENT AND APPLIED SLIT GAUZE DRESSING.
--- NOTE | 2018-12-18 13:45 | NUR ---
SITTING UP ON SIDE OF BED WATCHING TV. DENIES ANY NEEDS. CALL LIGHT WITHIN REACH, FALL PRECAUTIONS IN PLACE
--- NOTE | 2018-12-18 16:00 | NUR ---
RESTING QUIETLY.CL IN REACH.
[2018-12-18 19:25] VITALS: BP 114/78
--- NOTE | 2018-12-18 19:25 | NUR ---
PATIENT IS RESTING IN HER BED. PEG TUBE SITE DRESSING CHANGED AT THIS TIME DUE TO EXCESSIVE DRAINAGE. BED IS DOWN LOW WITH SIDE RAILS UP X2. CALL LIGHT IS IN REACH.
--- NOTE | 2018-12-19 00:14 | NUR ---
PATIENT SLEEPING. BED DOWN LOW AND CALL LIGHT IN REACH.
--- NOTE | 2018-12-19 04:04 | NUR ---
PATIENT IS SLEEPING. NO SIGNS OF PAIN OR DISTRESS. BED IS DOWN LOW WITH SIDE RAILS UP X2. CALL LIGHT IS IN REACH.
--- NOTE | 2018-12-19 04:53 | NUR ---
PATIENT MEDICATED WITH PERCOCET 10 MG PO PER REQUEST AND DRESSING CHANGED TO PEG TUBE SITE R/T DRESSING WAS WET WITH MODERATE DRAINAGE.
[2018-12-19 07:14] LABS: BASOPHILS 0.5 % (0-2); EOSINOPHILS 1.9 % (0-7); HEMATOCRIT 29.3 % (36.0-48.0); HEMOGLOBIN 9.2 g/dL (12-16); IMMATURE GRANULOCYTES 0.3 % (0-5); MCH 28.2 pg (26.0-34.0); MCHC 31.4 g/dL (31.0-37.0); MCV 89.9 fL (80.0-100.0); MEAN PLATELET VOLUME 9.6 fL (7.4-10.4); MONOCYTES 5.1 % (2-11); NEUTROPHILS 52.2 % (40-80); PLATELET COUNT 240 10x3/uL (130-400); RBC 3.26 10x6/uL (4.00-5.40); RDW 14.5 % (11.5-14.5); WBC 5.7 10x3/uL (4.8-10.8)
[2018-12-19 07:25] LABS: ANION GAP 9.4 mmol/L (8-16); CALCIUM 8.8 mg/dL (8.5-10.1); CARBON DIOXIDE 29.8 mmol/L (21.0-32.0); CREATININE - SERUM 0.9 mg/dL (0.6-1.3); POTASSIUM - SERUM 4.2 mmol/L (3.5-5.1)
[2018-12-19 08:00] VITALS: BP 147/78
--- NOTE | 2018-12-19 08:00 | NUR ---
PATIENT IS ALERT/ORIENT. PRN PAIN MEDICATION GIVEN PER PATIENT REQUEST. DR. Akash MAN INTO SEE PATIENT. WILL CONTINUE WITH PLAN OF CARE
--- NOTE | 2018-12-19 10:44 | NUR ---
Nutrition Follow Up:
--- NOTE | 2018-12-19 10:47 | NUR ---
Nutrition Follow Up: Soft gastric diet with 83% average po intake past 3 days. Pt reports tolerating diet well with no nausea Pt asked to stop TF and has been refusing feedings the past few days because of good po intake OK to stop TF- Will add daily weights to monitor for weight loss Recommend to start a MVI and consider diet liberalization to regular Pt weighed 126lb 12oz today RD following
--- NOTE | 2018-12-19 11:38 | NUR ---
DR STEELE INTO SEE PATIENT. STATES WITH A J TUBE AND EATTING AND DRINKING THAT THE J TUBE WILL LEAK. TALKED WITH PATIENT
--- NOTE | 2018-12-19 13:14 | NUR ---
PRN PERCOCET GIVEN FOR J TUBE SITE PAIN PER PATIENT REQUEST. DRESSING TO J TUBE SITE CHANGED
[2018-12-19 19:00] VITALS: BP 125/82
--- NOTE | 2018-12-19 19:30 | NUR ---
PT EYES OPEN WATCHING TV, CONTINUES TO REFUSE TUBE FEED, J-TUBE CONTINUES TO LEAK, DRESSING TO BE CHANGED TONIGHT, FLUIDS AND CALL LIGHT WITHIN REACH, PT HAS NO ISSUES WITH SWALLOWING
--- NOTE | 2018-12-20 00:58 | NUR ---
PT IN BED LOW POSITION, EYES CLOSED, INDEPENDENT, AROUSES EASILY TO VOICE, FLUIDS AND CALL LIGHT WITHIN REACH
--- NOTE | 2018-12-20 05:08 | NUR ---
PT REQUESTING PRN PCT 8 OF 10 ON PAIN SCALE,FLUIDS AND CALL LIGHT WITHIN REACH
--- NOTE | 2018-12-20 07:35 | NUR ---
ALERT AND ORIENTED. NO DISTRESS NOTED. CL IN REACH.
[2018-12-20 08:00] VITALS: BP 163/85
--- NOTE | 2018-12-20 13:14 | NUR ---
SITTING IN WC. NO DISTRESS NOTED. CL IN REACH.
--- NOTE | 2018-12-20 14:17 | NUR ---
Nutrition Follow Up: Pt stated that she was not feeling well today. She said that she was eating pretty good. Noted per nursing and chart that pt has been refusing TF. Diet: Gastric Soft Osmolite 1.0 @ 30 ml/hr nocturnal TF PO Intake: 69% meal avg BM: 12/19/18 Labs reviewed Meds noted including Lasix Rec continue current diet. Rec consider d/c TF if okay with General Surgery. RD following.
--- NOTE | 2018-12-20 14:38 | NUR ---
SHOWER TODAY PER OT.
--- NOTE | 2018-12-20 16:43 | NUR ---
NO CHANGE IN ASSESSMENT. RESTING WO C/O PAIN AT THIS TIME OR DISTRESS. CL IN REACH.
[2018-12-20 19:00] VITALS: BP 102/74
--- NOTE | 2018-12-20 19:19 | NUR ---
AWAKE AND ALERT SITTING ON SIDE OF BED EATING HER SUPPER. RESPIRATIONS UNLABORED. STATES SHE DOESNT WANT J-TUBE FEEDING. J-TUBE INTACT. NO DISTRESS NOTED. CALL LIGHT IN REACH.
--- NOTE | 2018-12-21 01:34 | NUR ---
RESTING IN BED WITH RESPIRATIONS UNLABORED. NO DISTRESS NOTED. CALL LIGHT IN REACH.
--- NOTE | 2018-12-21 07:57 | NUR ---
ALERT ADN ORIENTED. NO SIGNS OF DISTRESS. RESP EVEN AND UNLABORED.
[2018-12-21 08:01] LABS: ANION GAP 15.8 mmol/L (8-16); CALCIUM 8.8 mg/dL (8.5-10.1); CREATININE - SERUM 1.1 mg/dL (0.6-1.3)
[2018-12-21 08:04] LABS: CARBON DIOXIDE 22.2 mmol/L (21.0-32.0)
[2018-12-21 08:06] LABS: BASOPHILS 0.6 % (0-2); EOSINOPHILS 2.4 % (0-7); HEMATOCRIT 31.3 % (36.0-48.0); HEMOGLOBIN 9.7 g/dL (12-16); IMMATURE GRANULOCYTES 0.3 % (0-5); LYMPHOCYTES 37.5 % (15-50); MCH 28.4 pg (26.0-34.0); MCV 91.5 fL (80.0-100.0); MEAN PLATELET VOLUME 10.7 fL (7.4-10.4); MONOCYTES 3.5 % (2-11); NEUTROPHILS 55.7 % (40-80); PLATELET COUNT 264 10x3/uL (130-400); RBC 3.42 10x6/uL (4.00-5.40); RDW 15.2 % (11.5-14.5); WBC 7.1 10x3/uL (4.8-10.8)
[2018-12-21] MEDS ORDERED: NORVASC2.5 MG PO (08:33)
[2018-12-21] MEDS ORDERED: DURAGESIC1 PATCH .4 TRANSDERM (08:34)
[2018-12-21] MEDS ORDERED: THERAGRAN M [BK1 TAB PO (08:35)
--- NOTE | 2018-12-21 10:04 | NUR ---
PATIENT DISCHARGING HOME WITH FAMILY TODAY. [facility] WILL RESUME CARE AT HOME. NO NEW DME NEEDED AT THIS TIME. DR. ONEIL 12/27/18 @ 11:15, DR. STEELE 01/05/19 @ 9:00. PATIENT CHOICE FORM AND IMFM FORMS SIGNED, COPY GIVEN TO PATIENT, AND FILED IN CHART. DISCHARGE INSTRUCTIONS WITH [facility] DATA FAXED TO PCP, HOME HEALTH AND REVIEWED WITH PATIENT.
--- NOTE | 2018-12-21 12:38 | NUR ---
DC INSTRUCTIONS GIVEN. SCRIPT FOR DURAGESIC PATCH GIVEN TO PATIENT. HERE TO TAKE PATIENT HOME TODAY. ASSISTED TO CAR PER STAFF IN FOR DC HOME.
== END 2018-12-21 11:30 | disposition home health service (06) | DRG 91 ==
LOC: D.REHAB 15:00
PROVIDERS: ADMIT Emergency Medicine; ATTEND Emergency Medicine
DX: G72.89 Other specified myopathies (principal); G93.41 Metabolic encephalopathy; E43 Unspecified severe protein-calorie malnutrition; Z68.1 Body mass index [BMI] 19.9 or less, adult; K95.89 Other complications of other bariatric procedure; I10 Essential (primary) hypertension; J44.9 Chronic obstructive pulmonary disease, unspecified; E11.65 Type 2 diabetes mellitus with hyperglycemia; R13.19 Other dysphagia; K21.9 Gastro-esophageal reflux disease without esophagitis; M54.16 Radiculopathy, lumbar region; M54.2 Cervicalgia; R10.9 Unspecified abdominal pain; R11.10 Vomiting, unspecified; R19.7 Diarrhea, unspecified; E11.40 Type 2 diabetes mellitus with diabetic neuropathy, unspecified; M19.90 Unspecified osteoarthritis, unspecified site; I05.0 Rheumatic mitral stenosis; E86.0 Dehydration; G35 Multiple sclerosis

== ENCOUNTER 2018-12-27 08:45 | Emergency (ER) | payer MEDICARE ==
[~2018-12-27] VITALS: Ht 162.6 cm; Wt 55.5 kg
[~2018-12-27 08:45] MED LIST changes: +DURAGESIC1 PATCH .4 TRANSDERM; +NORVASC2.5 MG PO; +THERAGRAN M [BK1 TAB PO
[2018-12-27 08:56] VITALS: BP 174/108
[2018-12-27 09:30] LABS: BASOPHILS 0.4 % (0-2); EOSINOPHILS 1.8 % (0-7); HEMATOCRIT 34.6 % (36.0-48.0); HEMOGLOBIN 11.3 g/dL (12-16); IMMATURE GRANULOCYTES 0.2 % (0-5); LYMPHOCYTES 23.2 % (15-50); MCH 28.6 pg (26.0-34.0); MCHC 32.7 g/dL (31.0-37.0); MCV 87.6 fL (80.0-100.0); MEAN PLATELET VOLUME 10.6 fL (7.4-10.4); MONOCYTES 3.7 % (2-11); NEUTROPHILS 70.7 % (40-80); PLATELET COUNT 236 10x3/uL (130-400); RBC 3.95 10x6/uL (4.00-5.40); WBC 4.9 10x3/uL (4.8-10.8)
[2018-12-27 09:44] LABS: ALBUMIN 3.5 g/dL (3.4-5.0); ALKALINE PHOSPHATASE 97 U/L (46-116); ALT (SGPT) 19 U/L (10-68); AMYLASE - SERUM 31 U/L (25-115); BILIRUBIN - TOTAL 0.38 mg/dL (0.2-1.3); CALC OSMOLALITY 279 mosm/kg (275-300); CALCIUM 9.4 mg/dL (8.5-10.1); CARBON DIOXIDE 28.5 mmol/L (21.0-32.0); CHLORIDE - SERUM 102 mmol/L (98-107); CREATININE - SERUM 0.7 mg/dL (0.6-1.3); LIPASE 73 U/L (73-393); POTASSIUM - SERUM 3.7 mmol/L (3.5-5.1); PROTEIN - SERUM 7.4 g/dL (6.4-8.2); SODIUM 139 mmol/L (136-145); UREA NITROGEN 17 mg/dL (7-18); eGFR NON AFRICAN AMERICAN > 90 mL/min (90-120)
[2018-12-27 09:45] LABS: GLUCOSE 97 mg/dL (74-106)
[2018-12-27 10:01] LABS: APPEARANCE CLEAR (CLEAR); BILIRUBIN NEGATIVE (NEGATIVE); COLOR YELLOW (YELLOW); GLUCOSE NEGATIVE (NEGATIVE); KETONE NEGATIVE (NEGATIVE); NITRITE NEGATIVE (NEGATIVE); PROTEIN NEGATIVE (NEGATIVE); SPECIFIC GRAVITY 1.025 (1.005-1.020); UROBILINOGEN NORMAL (NORMAL)
[2018-12-27] MEDS ORDERED: LEVSIN/ANASP0.125 MG PO (12:21)
[2018-12-27 13:24] VITALS: Ht 162.6 cm; Wt 55.5 kg
== END 2018-12-27 12:55 | disposition home or self-care (01) ==
LOC: D.ER 08:45
PROVIDERS: Family Medicine
DX: R10.9 Unspecified abdominal pain (principal)

== ENCOUNTER 2018-12-27 19:23 | Emergency (ER) | payer MEDICARE ==
[~2018-12-27] VITALS: Ht 162.6 cm; Wt 55.5 kg
[~2018-12-27 19:23] MED LIST changes: +LEVSIN/ANASP0.125 MG PO
[2018-12-27 19:27] VITALS: Ht 162.6 cm; Wt 55.5 kg
[2018-12-27 22:17] VITALS: BP 160/97
== END 2018-12-27 20:59 | disposition home or self-care (01) ==
LOC: D.ER 19:23
DX: R10.9 Unspecified abdominal pain (principal)

== ENCOUNTER 2018-12-29 18:23 | Emergency (ER) | payer MEDICARE ==
[~2018-12-29] VITALS: Ht 162.6 cm; Wt 55.5 kg
[2018-12-29 18:41] VITALS: Ht 162.6 cm; Wt 55.5 kg
[2018-12-29 19:09] LABS: HEMATOCRIT 35.5 % (36.0-48.0); HEMOGLOBIN 11.7 g/dL (12-16); MCH 28.5 pg (26.0-34.0); MCV 86.6 fL (80.0-100.0); MEAN PLATELET VOLUME 10.3 fL (7.4-10.4); RDW 14.7 % (11.5-14.5); WBC 5.9 10x3/uL (4.8-10.8)
[2018-12-29 19:10] LABS: PLATELET COUNT 289 10x3/uL (130-400)
[2018-12-29 19:21] LABS: ALBUMIN 3.5 g/dL (3.4-5.0); ALKALINE PHOSPHATASE 88 U/L (46-116); ALT (SGPT) 17 U/L (10-68); BILIRUBIN - TOTAL 0.51 mg/dL (0.2-1.3); CALC OSMOLALITY 270 mosm/kg (275-300); CALCIUM 9.1 mg/dL (8.5-10.1); CARBON DIOXIDE 21.7 mmol/L (21.0-32.0); CHLORIDE - SERUM 98 mmol/L (98-107); CREATININE - SERUM 0.7 mg/dL (0.6-1.3); SODIUM 136 mmol/L (136-145); UREA NITROGEN 14 mg/dL (7-18); eGFR NON AFRICAN AMERICAN > 90 mL/min (90-120)
[2018-12-29 19:26] LABS: GLUCOSE 56 mg/dL (74-106)
[2018-12-29 20:02] LABS: EOSINOPHILS 5 % (0-7); LYMPHOCYTES 34 % (15-50); MONOCYTES 8 % (2-11); NEUTROPHILS 53 % (40-80); PLATELET ESTIMATE NORMAL
[2018-12-29] MEDS ORDERED: PHENERGAN25 MG RC (21:23)
[2018-12-29 22:57] VITALS: BP 150/94
== END 2018-12-29 22:57 | disposition home or self-care (01) ==
LOC: D.ER 18:23
PROVIDERS: Emergency Medicine
DX: R11.2 Nausea with vomiting, unspecified (principal)

== ENCOUNTER 2019-01-08 13:49 | Emergency (ER) | payer MEDICARE ==
[~2019-01-08] VITALS: Ht 162.6 cm; Wt 53.6 kg
[2019-01-08 13:51] VITALS: Ht 162.6 cm; Wt 53.6 kg
[2019-01-08 14:26] LABS: BASOPHILS 0.4 % (0-2); EOSINOPHILS 1.7 % (0-7); HEMATOCRIT 33.8 % (36.0-48.0); HEMOGLOBIN 10.8 g/dL (12-16); IMMATURE GRANULOCYTES 0.1 % (0-5); LYMPHOCYTES 24.8 % (15-50); MCH 28.4 pg (26.0-34.0); MCV 88.9 fL (80.0-100.0); MEAN PLATELET VOLUME 10.8 fL (7.4-10.4); RDW 15.4 % (11.5-14.5); WBC 7.5 10x3/uL (4.8-10.8)
[2019-01-08 14:28] LABS: PLATELET COUNT 215 10x3/uL (130-400)
[2019-01-08 14:42] LABS: ALBUMIN 3.2 g/dL (3.4-5.0); ANION GAP 12.3 mmol/L (8-16); BILIRUBIN - TOTAL 0.75 mg/dL (0.2-1.3); CALCIUM 8.3 mg/dL (8.5-10.1); CARBON DIOXIDE 24.8 mmol/L (21.0-32.0); POTASSIUM - SERUM 4.1 mmol/L (3.5-5.1); PROTEIN - SERUM 6.1 g/dL (6.4-8.2)
[2019-01-08 16:10] LABS: APPEARANCE CLEAR (CLEAR); BILIRUBIN 2+ (NEGATIVE); COLOR DK YELLOW (YELLOW); GLUCOSE 50 mg/dL (NEGATIVE); KETONE SMALL mg/dL (NEGATIVE); NITRITE NEGATIVE (NEGATIVE); PROTEIN 1+ mg/dL (NEGATIVE); UROBILINOGEN NORMAL (NORMAL)
[2019-01-08 16:11] LABS: BACTERIA MODERATE /hpf (NONE SEEN); EPITHELIAL CELLS 0-5 /hpf (0-5); RED CELLS - URINE 0-5 /hpf (0-5)
[2019-01-08] MEDS ORDERED: ZOFRAN4 MG PO (18:51)
[2019-01-08 19:02] VITALS: BP 155/102
== END 2019-01-08 19:02 | disposition home or self-care (01) ==
LOC: D.ER 13:49
PROVIDERS: Family Medicine
DX: R10.9 Unspecified abdominal pain (principal); R11.10 Vomiting, unspecified

== ENCOUNTER 2019-01-10 20:47 | Emergency (ER) | payer MEDICARE ==
[~2019-01-10] VITALS: Ht 162.6 cm; Wt 54.5 kg
[~2019-01-10 20:47] MED LIST changes: +ZOFRAN4 MG PO
[2019-01-10 20:54] VITALS: Ht 162.6 cm; Wt 54.5 kg
[2019-01-10 21:35] LABS: BASOPHILS 0.3 % (0-2); EOSINOPHILS 2.6 % (0-7); HEMATOCRIT 33.1 % (36.0-48.0); HEMOGLOBIN 10.5 g/dL (12-16); IMMATURE GRANULOCYTES 0.2 % (0-5); LYMPHOCYTES 35.9 % (15-50); MCH 28.2 pg (26.0-34.0); MCHC 31.7 g/dL (31.0-37.0); MCV 88.7 fL (80.0-100.0); MEAN PLATELET VOLUME 11.3 fL (7.4-10.4); MONOCYTES 4.8 % (2-11); NEUTROPHILS 56.2 % (40-80); PLATELET COUNT 187 10x3/uL (130-400); RBC 3.73 10x6/uL (4.00-5.40); WBC 5.8 10x3/uL (4.8-10.8)
[2019-01-10 21:58] LABS: ALBUMIN 3.3 g/dL (3.4-5.0); ALKALINE PHOSPHATASE 84 U/L (46-116); ALT (SGPT) 20 U/L (10-68); BILIRUBIN - TOTAL 0.54 mg/dL (0.2-1.3); CALC OSMOLALITY 289 mosm/kg (275-300); CALCIUM 8.9 mg/dL (8.5-10.1); CHLORIDE - SERUM 109 mmol/L (98-107); CREATININE - SERUM 0.8 mg/dL (0.6-1.3); GLUCOSE 83 mg/dL (74-106); POTASSIUM - SERUM 4.6 mmol/L (3.5-5.1); PROTEIN - SERUM 6.4 g/dL (6.4-8.2); SODIUM 143 mmol/L (136-145); UREA NITROGEN 30 mg/dL (7-18); eGFR NON AFRICAN AMERICAN 83 mL/min (90-120)
[2019-01-10 21:59] LABS: AMYLASE - SERUM 64 U/L (25-115); LIPASE 164 U/L (73-393)
[2019-01-11] MEDS ORDERED: SULFAMETHOXAZOL1 TA3 PO (03:35)
[2019-01-11] MEDS ORDERED: ZOFRAN ODT4 MG/UDTAB PO (03:35)
[2019-01-11] MEDS ORDERED: KEFLEX500 MG PO (03:35)
[2019-01-11 03:52] VITALS: BP 169/78
== END 2019-01-11 03:58 | disposition home or self-care (01) ==
LOC: D.ER 20:47
PROVIDERS: Family Medicine
DX: L03.311 Cellulitis of abdominal wall (principal); Z76.5 Malingerer [conscious simulation]

== ENCOUNTER 2019-01-12 14:17 | Inpatient (IN) | payer MEDICARE ==
[~2019-01-12] VITALS: Ht 162.6 cm; Wt 59.0 kg
[~2019-01-12 14:17] MED LIST changes: +KEFLEX500 MG PO; +SULFAMETHOXAZOL1 TA3 PO
[2019-01-12 15:11] VITALS: BP 166/91; BMI 22.3
--- NOTE | 2019-01-12 15:17 | NUR ---
PATIENT ADMITTED TO ROOM 2216. ALERT AND ORIENTED X 3. LUNGS CLEAR BILATERALLY IN ALL HERNANDEZ. HEART SOUNDS S1 AND S2 HEARD IN ALL HERNANDEZ. BOWEL SOUNDS ACTIVE X 4. SKIN INTACT WITHOUT REDNESS. DENIES NEEDS. WILL CONTINUE TO MONITOR.
--- NOTE | 2019-01-12 16:13 | NUR ---
LEFT CHEST PORT ACCESSED.
[2019-01-12 16:36] LABS: ALBUMIN 3.2 g/dL (3.4-5.0); ALKALINE PHOSPHATASE 83 U/L (46-116); BILIRUBIN - TOTAL 0.29 mg/dL (0.2-1.3); CALCIUM 8.7 mg/dL (8.5-10.1); CARBON DIOXIDE 22.8 mmol/L (21.0-32.0); CHLORIDE - SERUM 111 mmol/L (98-107); CREATININE - SERUM 0.8 mg/dL (0.6-1.3); PROTEIN - SERUM 5.9 g/dL (6.4-8.2); SODIUM 147 mmol/L (136-145); UREA NITROGEN 29 mg/dL (7-18); eGFR NON AFRICAN AMERICAN 83 mL/min (90-120)
[2019-01-12 16:40] LABS: ALT (SGPT) 42 U/L (10-68); CALC OSMOLALITY 300 mosm/kg (275-300); GLUCOSE 155 mg/dL (74-106); POTASSIUM - SERUM 3.7 mmol/L (3.5-5.1)
--- NOTE | 2019-01-12 17:38 | NUR ---
SITTING IN BED EATING DINNER. DENIES PAIN. DENIES NEEDS.
--- NOTE | 2019-01-12 19:00 | NUR ---
REPORT RECEIVED AND CARE OF PT ASSUMED. PT LYING IN SUPINE POSITION WATCHING TV. LEFT PORT PATENT WITH MVI INFUSING AT 125 ML / HR AND NS INFUSING AT 30 ML / HR. CISCO CERTIFIED INTERNETWORK EXPERT W/ DILAUDID IN USE FOR PAIN CONTROL. WILL MONITOR FOR NEEDS.
--- NOTE | 2019-01-12 19:52 | NUR ---
HS MEDICATIONS GIVEN TO INCLUDE ZOFRAN 4 MG IVP PER REQUEST FOR NAUSEA. WILL CONTINUE TO MONITOR FOR NEEDS.
[2019-01-12 20:00] VITALS: BP 152/108
--- NOTE | 2019-01-12 22:37 | NUR ---
NEW VIAL OF DILAUDID PLACED IN MARINE FIREFIGHTER. WILL CONTINUE TO MONITOR FOR NEEDS.
[2019-01-13] VITALS: BP 111/72
[2019-01-13 04:00] VITALS: BP 112/67
--- NOTE | 2019-01-13 08:30 | NUR ---
PATIENT SITTING UP IN BED WITH NO COMPLAINTS OR SIGNS OF DISTRESS. CALL LIGHT WITHIN REACH.
[2019-01-13 08:46] VITALS: BP 115/79
[2019-01-13 12:48] VITALS: BP 134/93
[2019-01-13 14:15] VITALS: Ht 162.6 cm; Wt 59.0 kg
--- NOTE | 2019-01-13 16:11 | NUR ---
OT NOTE: PT COMPLETED SIMPLE GROOMING TASKS WITH MIN A. PT COMPLETED BED MOB TASK WITH MIN A. THANK YOU,BEE CEDEÑO
[2019-01-13 16:45] VITALS: BP 136/91
--- NOTE | 2019-01-13 18:03 | NUR ---
PATIENT IN BED WITH IV INTACT. NO COMPLAINTS OR SIGNS OF DISTRESS. CALL LIGHT WITHIN REACH. BSCDS ON AND WORKING.
--- NOTE | 2019-01-13 19:00 | NUR ---
REPORT RECEIVED AND CARE OF PT ASSUMED. PT LYING IN HIGH LAWLER'S POSITION WATCHING TV. LEFT PORT ACCESSED WITH MVI INFUSING AT 125 ML / HR; NS INFUSING AT 30 ML / HR, AND AUTOMATIC TOE LASTER W/ MORPHINE FOR PAIN CONTROL. O2 IN USE VIA NC AT 2L. WILL MONITOR FOR NEEDS.
[2019-01-13 19:50] VITALS: BP 156/101
--- NOTE | 2019-01-13 19:58 | NUR ---
HS MEDICATIONS GIVEN TO INCLUDE ZOFRAN FOR NAUSEA. WILL CONTINUE TO MONITOR FOR NEEDS.
[2019-01-14] VITALS: BP 163/99
[2019-01-14 04:00] VITALS: BP 140/93
--- NOTE | 2019-01-14 04:44 | NUR ---
[facility] AND DELIVERED TO SUPERVISOR COOK ROOM.
[2019-01-14 05:02] LABS: BASOPHILS 0.6 % (0-2); HEMATOCRIT 28.6 % (36.0-48.0); HEMOGLOBIN 8.9 g/dL (12-16); IMMATURE GRANULOCYTES 0.2 % (0-5); LYMPHOCYTES 39.7 % (15-50); MCH 28.5 pg (26.0-34.0); MCHC 31.1 g/dL (31.0-37.0); MCV 91.7 fL (80.0-100.0); MONOCYTES 4.3 % (2-11); NEUTROPHILS 52.2 % (40-80); RBC 3.12 10x6/uL (4.00-5.40); RDW 15.1 % (11.5-14.5); WBC 4.7 10x3/uL (4.8-10.8)
[2019-01-14 05:09] LABS: PLATELET COUNT 129 10x3/uL (130-400)
[2019-01-14 05:13] LABS: CALCIUM 8.3 mg/dL (8.5-10.1); CARBON DIOXIDE 27.3 mmol/L (21.0-32.0); CHLORIDE - SERUM 110 mmol/L (98-107); GLUCOSE 114 mg/dL (74-106); SODIUM 139 mmol/L (136-145)
[2019-01-14 05:17] LABS: CALC OSMOLALITY 277 mosm/kg (275-300); CREATININE - SERUM 0.5 mg/dL (0.6-1.3); POTASSIUM - SERUM 4.8 mmol/L (3.5-5.1); UREA NITROGEN 11 mg/dL (7-18); eGFR NON AFRICAN AMERICAN > 90 mL/min (90-120)
--- NOTE | 2019-01-14 08:20 | NUR ---
PT ALERT X 4. BREATH SOUNDS CLEAR BILAT. PORT TO LEFT CHEST, PATENT, DRESSING CDI. PT REPORTING PAIN OF 5/10, AUTOMATIC PINSETTER ADJUSTER IN PLACE, WILL MONITOR. OLD PEG TUBE INSERTION SITE RED AND TENDER. BED LOW, CALL LIGHT IN REACH. NO OTHER NEEDS AT THIS TIME.
[2019-01-14 08:24] VITALS: BP 141/92
[2019-01-14 12:31] VITALS: BP 148/96
--- NOTE | 2019-01-14 19:00 | NUR ---
REPORT RECEIVED AND CARE OF PT ASSUMED. PT LYING IN HIGH LAWLER'S POSITION WATCHING TV. LEFT PORT ACCESSED WITH MVI INFUSING AT 125 ML / HR; NS INFUSING AT 30 ML/HR; AND WRAPPER STEMMER HAND W/ DILAUDID FOR PAIN CONTROL. WILL MONITOR FOR NEEDS.
[2019-01-14 20:00] VITALS: BP 140/95
--- NOTE | 2019-01-14 21:02 | NUR ---
HS MEDICATIONS GIVEN. WILL CONTINUE TO MONITOR FOR NEEDS.
[2019-01-15] VITALS: BP 143/93
[2019-01-15 07:02] LABS: BASOPHILS 0.3 % (0-2); HEMOGLOBIN 9.1 g/dL (12-16); IMMATURE GRANULOCYTES 0.3 % (0-5); LYMPHOCYTES 38.6 % (15-50); MCH 28.3 pg (26.0-34.0); MCHC 31.4 g/dL (31.0-37.0); MCV 90.3 fL (80.0-100.0); MEAN PLATELET VOLUME 10.4 fL (7.4-10.4); NEUTROPHILS 50.8 % (40-80); PLATELET COUNT 128 10x3/uL (130-400); RBC 3.21 10x6/uL (4.00-5.40); RDW 15.1 % (11.5-14.5)
[2019-01-15 07:05] LABS: WBC 3.5 10x3/uL (4.8-10.8)
[2019-01-15 07:09] LABS: CALCIUM 8.6 mg/dL (8.5-10.1); CARBON DIOXIDE 26.2 mmol/L (21.0-32.0); CHLORIDE - SERUM 107 mmol/L (98-107); CREATININE - SERUM 0.6 mg/dL (0.6-1.3); GLUCOSE 88 mg/dL (74-106); SODIUM 138 mmol/L (136-145); eGFR NON AFRICAN AMERICAN > 90 mL/min (90-120)
[2019-01-15 07:12] LABS: CALC OSMOLALITY 272 mosm/kg (275-300); UREA NITROGEN 7 mg/dL (7-18)
[2019-01-15 07:13] LABS: POTASSIUM - SERUM 6.1 mmol/L (3.5-5.1)
--- NOTE | 2019-01-15 09:00 | NUR ---
PT ALERT X 4. BREATH SOUNDS CLEAR BILAT. PORT TO LEFT CHEST, PATENT, DRESSING CDI. PT REPORTING PAIN OF 6/10, CHANNEL MACHINE OPERATOR IN PLACE, WILL MONITOR. BED LOW, CALL LIGHT IN REACH. NO OTHER NEEDS AT THIS TIME.
[2019-01-15 09:22] VITALS: BP 139/97
[2019-01-15 13:16] VITALS: BP 137/89
[2019-01-15 16:31] VITALS: BP 152/88
--- NOTE | 2019-01-15 19:00 | NUR ---
REPORT RECEIVED AND CARE OF PT ASSUMED. PT LYING IN HIGH LAWLER'S POSITION WATCHING TV. LEFT IP PATENT WITH MVI INFUSING AT 125 ML / HR; NS INFUSING AT 30 ML AND GOVERNMENT DOCUMENTS LIBRARIAN W/ DILAUDID IN USE FOR PAIN CONTROL. PT CONSENTED FOR AM PROCEDURE WITH DAY SHIFT NURSE. PT WILL BE NPO AFTER MIDNIGHT.
[2019-01-15 19:45] VITALS: BP 151/97
--- NOTE | 2019-01-15 20:43 | NUR ---
HS MEDICATIONS GIVEN. WILL CONTINUE TO MONITOR FOR NEEDS.
[2019-01-16 00:24] VITALS: BP 154/83
[2019-01-16 05:52] LABS: BASOPHILS 0.5 % (0-2); EOSINOPHILS 4.3 % (0-7); HEMOGLOBIN 10.4 g/dL (12-16); IMMATURE GRANULOCYTES 0.3 % (0-5); LYMPHOCYTES 27.3 % (15-50); MCH 28.2 pg (26.0-34.0); MCHC 31.5 g/dL (31.0-37.0); MCV 89.4 fL (80.0-100.0); MEAN PLATELET VOLUME 11.2 fL (7.4-10.4); MONOCYTES 4.3 % (2-11); NEUTROPHILS 63.3 % (40-80); RBC 3.69 10x6/uL (4.00-5.40); RDW 14.9 % (11.5-14.5); WBC 3.7 10x3/uL (4.8-10.8)
[2019-01-16 05:55] LABS: PLATELET COUNT 189 10x3/uL (130-400)
[2019-01-16 06:09] LABS: CALC OSMOLALITY 272 mosm/kg (275-300); CALCIUM 9.2 mg/dL (8.5-10.1); CHLORIDE - SERUM 103 mmol/L (98-107); CREATININE - SERUM 0.7 mg/dL (0.6-1.3); GLUCOSE 84 mg/dL (74-106); POTASSIUM - SERUM 5.3 mmol/L (3.5-5.1); SODIUM 138 mmol/L (136-145); UREA NITROGEN 6 mg/dL (7-18); eGFR NON AFRICAN AMERICAN > 90 mL/min (90-120)
--- NOTE | 2019-01-16 06:54 | NUR ---
PRE OP MEDICATIONS GIVEN. NS + TUBING AND KENALOG ATTACHED TO CHART.
--- NOTE | 2019-01-16 07:40 | NUR ---
GI LAB STAFF PRESENT TO TAKE PT FOR PROCEDURE. NO ACUTE DISTRESS NOTED AT THIS TIME. REPORTS PAIN 6/10, DILAUDID RIVETER HELPER INTACT. IV INTACT TO LEFT CHEST PORT WITH MVI @ 125ML/HR, NS @ 30 ML/HR, DILAUDID RIVETER HELPER ALL INFUSING VIA PUMP. SITE WITHOUT REDNESS OR EDEMA. PT REPORTS BEING NPO SINCE MIDNIGHT. PT DOES VOICE SOME ANXIETY REGARDING UPCOMING PROCEDURE. PT BEING TAKEN FOR PRE OP VIA BED. NO ACUTE DISTRESS NOTED. CONTINUE POC
--- NOTE | 2019-01-16 12:22 | OP ---
PATIENT NAME: RAFAEL PETTY MEDICAL RECORD: [id number] :75 LOCATION:[facility] ADMISSION DATE:01/12/19 SURGEON: COLLEEN STEELE MD DATE OF OPERATION: 01/16/2019 SURGEON: Colleen Steele MD PREOPERATIVE DIAGNOSES: Dysphagia, intractable nausea and vomiting. POSTOPERATIVE DIAGNOSES: Dysphagia, intractable nausea and vomiting, proximal gastric stricture. ANESTHESIA: Total intravenous anesthesia. PROCEDURE: EGD with balloon dilatation and submucosal injection of Kenalog. OPERATIVE COURSE: After consent was obtained, a timeout was taken to confirm the correct patient and procedure. A biteblock was placed. Hurricaine Mccool was administered. The gastroscope was inserted through the biteblock and into the posterior oropharynx. It was passed posterior to epiglottis and under direct endoscopic vision, was advanced down the esophagus. The gastroesophageal junction had showed some mild esophagitis with grade A linear ulcerations. Then, 5-6 cm distal to the esophagus, an area of stricture was encountered. The scope was able to be traversed. The scope was advanced into the distal stomach through the pylorus into the first portion of duodenum. The first portion of the duodenum appeared within normal limits. The antrum and prepyloric region appeared within normal limits. At this point, the 18-20 mm balloon dilator was passed through the working channel and into the prepyloric region. The scope was withdrawn through the area of stricture. The balloon was inflated to 19 mm and held for approximately 3 minutes. After dilation 80 mg of Kenalog were injected 20 mg in each of the 4 quadrants with submucosal injection. There was no mucosal trauma noted. The scope was easily traversed across the area of narrowing or stricture. At this time, the stomach was desufflated. The scope was withdrawn. The esophagus appeared within normal limits. The patient tolerated the procedure well and was transferred to recovery room in satisfactory condition. TRANSINT:[id number] Voice Confirmation ID: [id number] DOCUMENT ID: [id number] COLLEEN STEELE MD at 1222 CC: [id number] DICTATION DATE: 01/16/19905 ADVISOR TO COMMAND IN COMBAT: 01/16/19 1144 [place] [address]
--- NOTE | 2019-01-16 12:44 | NUR ---
OT NOTE: PT REQUESTS TO HOLD SURGERY TODAY, SHE HAD PROCEDURE EARLIER AND FEELS VERY BLOATED AND NAUSEATED. PT REPORTS UP TO BATHROOM NEEDED WITH USE OF IV POLE ROMANA MORALES, OTR/L
--- NOTE | 2019-01-16 13:32 | NUR ---
NUTRITION F/U PT REPORTS TOLERATING FULL LIQUID DIET. RECEIVING ENSURE WITH MEALS. RD FOLLOWING
[2019-01-16 13:46] VITALS: BP 150/86
[2019-01-16 20:00] VITALS: BP 128/88
--- NOTE | 2019-01-16 20:00 | NUR ---
ASSESSMENT PER FLOWSHEET. IV PATENT LEFT CHEST INFUSAPORT OF MVI AT 125CC'S/HR AND NS AT 30CC'S/HR TRUCK REPAIR SUPERVISOR OF DILAUDID IN USE WITH STANDARD SETTINGS.
--- NOTE | 2019-01-16 21:00 | NUR ---
MEDS GIVEN PER MAR.
[2019-01-17] VITALS: BP 143/97
--- NOTE | 2019-01-17 | NUR ---
RESTING QUIETLY SR UP X2 CALL LIGHT WITHIN REACH.
[2019-01-17 05:38] VITALS: BP 117/58
[2019-01-17 06:27] LABS: BASOPHILS 0 % (0-2); EOSINOPHILS 0 % (0-7); HEMATOCRIT 30.8 % (36.0-48.0); HEMOGLOBIN 9.6 g/dL (12-16); LYMPHOCYTES 10.5 % (15-50); MCH 27.9 pg (26.0-34.0); MCHC 31.2 g/dL (31.0-37.0); MCV 89.5 fL (80.0-100.0); MONOCYTES 5.4 % (2-11); NEUTROPHILS 84.1 % (40-80); PLATELET COUNT 185 10x3/uL (130-400); RBC 3.44 10x6/uL (4.00-5.40); RDW 14.6 % (11.5-14.5); WBC 3.3 10x3/uL (4.8-10.8)
--- NOTE | 2019-01-17 06:31 | NUR ---
MEDDS GIVEN PER MAR.
[2019-01-17 06:56] LABS: CALC OSMOLALITY 274 mosm/kg (275-300); CARBON DIOXIDE 25.3 mmol/L (21.0-32.0); CHLORIDE - SERUM 105 mmol/L (98-107); CREATININE - SERUM 0.7 mg/dL (0.6-1.3); GLUCOSE 116 mg/dL (74-106); POTASSIUM - SERUM 4.8 mmol/L (3.5-5.1); SODIUM 138 mmol/L (136-145); UREA NITROGEN 8 mg/dL (7-18); eGFR NON AFRICAN AMERICAN > 90 mL/min (90-120)
--- NOTE | 2019-01-17 07:50 | NUR ---
PT RESTING EYES CLOSED EASY RISE AND FALL OF CHEST NO SIGNS OF DISTRESS NOTED, WILL CONTINUE TO MONITOR CL IN REACH
[2019-01-17 09:15] VITALS: BP 163/109
--- NOTE | 2019-01-17 10:43 | MORECARE ---
CASE MANAGEMENT DISCHARGE SUMMARY PATIENT: RAFAEL PETTY MARICEL UNIT: [id number] ADM DATE: 01/12/19 AGE: 43 : 75 SEX: F ROOM/BED: D.2216 AUTHOR: ROBERTO CRISTOBAL PHYSICIAN: REFERRING PHYSICIAN: COLLEEN STEELE MD DATE OF SERVICE: 01/17/19 Discharge Plan Patient Name: RAFAEL PETTY Facility: [facility]:[place] : 1975 Planned Disposition: Home Health Service Anticipated Discharge Date: Discharge Date: Expected LOS: Initial Reviewer: [email or web address] Initial Review Date: 01/12/2019 Generated: 01/17/19 11:43 am DCPIA - Discharge Planning Initial Assessment Updated by [email or web address]: Krista Sanchez on 01/17/19 10:40 am * Is the patient Alert and Oriented? Yes * How many steps to enter\exit or inside your home? ramp * PCP CLARICE * [facility] * Preadmission Environment Home with Family * ADLs Independent * Equipment Bedside Commode Elevated Toliet Seat Enteral Feeding and Supplies Rolling Walker Shower Chair Walker * List name and contact numbers for known caregivers / representatives who currently or will assist patient after discharge: HALLIE () [phone] * Verbal permission to speak to the caregivers and representatives has been obtained from the patient. Yes * Community resources currently utilized Home Health * Please name any agencies selected above. [facility] IN [place] * Additional services required to return to the preadmission environment? No * Can the patient safely return to the preadmission environment? Yes * Has this patient been hospitalized within the prior 30 days at any hospital? Yes Patient Name: RAFAEL PETTY Page [phone] at 1043 All edits/amendments must be made on the electronic document DICTATION DATE: 01/17/19 1042 RETAIL TEAM LEADER: MELANY 01/17/19 1042 RPT#: [id number] DC DATE: STATUS: ADM IN [facility] [address] [place] [address] END OF REPORT
--- NOTE | 2019-01-17 11:03 | MORECARE ---
CASE MANAGEMENT DISCHARGE SUMMARY PATIENT: RAFAEL PETTY MARICEL UNIT: [id number] ADM DATE: 01/12/19 AGE: 43 : 75 SEX: F ROOM/BED: D.2216 AUTHOR: LEVAR,DOC PHYSICIAN: REFERRING PHYSICIAN: COLLEEN STEELE MD DATE OF SERVICE: 01/17/19 Discharge Plan Patient Name: RAFAEL PETTY Facility: [facility]:[place] : 1975 Planned Disposition: Home Health Service Anticipated Discharge Date: Discharge Date: Expected LOS: Initial Reviewer: [email or web address] Initial Review Date: 01/12/2019 Generated: 01/17/19 12:03 pm Comments DCP- Discharge Planning Updated by [email or web address]: Krista Sanchez on 01/17/19 9:[address] Patient Name: RAFAEL PETTY Admission Status: Elective Accout number: [id number] Admission Date: 01-12-2019 : 1975 Admission Diagnosis: Attending: COLLEEN STEELE Current LOS: 5 Anticipated DC Date: Planned Disposition: Home Health Service Primary Insurance: MEDICARE A & B Discharge Planning Comments: CM met with patient to complete initial dc planning assessment. CM educated patient on the CM role and verbal consent given by patient to complete assessment. Patient lives at home with her where she is independent with her care at home. At discharge patient plans to return home and feels this is a safe discharge. CM discussed availability of home health, rehab services, and medical equipment. She is current with [facility] in [place] and will continue that at [place]. She has a walker, BSC, Elevated Toilet seat, shower chair and wheelchair at home. John her will be the one to drive her home. Patient denied known discharge needs at this time. CM will continue to follow and will assist as needed with dc plans/needs. IMM served and explained. Solar Energy Specialist: Krista Sanchez DCPIA - Discharge Planning Initial Assessment Updated by [email or web address]: Krista Sanchez on 01/17/19 10:40 am * Is the patient Alert and Oriented? Yes * How many steps to enter\exit or inside your home? ramp * PCP CLARICE * [facility] * Preadmission Environment Home with Family * ADLs Independent * Equipment Bedside Commode Elevated Tol[place] Seat Enteral Feeding and Supplies Rolling Walker Shower Chair Walker * List name and contact numbers for known caregivers / representatives who currently or will assist patient after discharge: JOHN () [phone] * Verbal permission to speak to the caregivers and representatives has been obtained from the patient. Yes * Community resources currently utilized Home Health * Please name any agencies selected above. [facility] IN [place] * Additional services required to return to the preadmission environment? No * Can the patient safely return to the preadmission environment? Yes * Has this patient been hospitalized within the prior 30 days at any hospital? Yes External Providers [facility] Next Contact Date: Service Request Date: Service Type: Resolution: Reviewer: Comments: Coverage Notice Reviewer: [id number] Noemy Sanchez Notice Issued Date-Time: 01/17/2019 10:25 Notice Type: IM Discharge Notice Notice Delivered To: Patient Relationship to Patient: Early Years Teacher Name: Delivery Method: HAND - Hand Delivered Anita Days: Prior Verbal Notification: Recipient Understood Notice: Yes Recipient Signature: Yes Med Rec Note Co-signed by Attending: Coverage Notice Comment: Reviewer: [email or web address] Noemy Sanchez Notice Issued Date-Time: 01/17/2019 10:25 Notice Type: Patient Choice Letter Notice Delivered To: Patient Relationship to Patient: Early Years Teacher Name: Delivery Method: - Anita Days: Prior Verbal Notification: Recipient Understood Notice: Yes Recipient Signature: Yes Med Rec Note Co-signed by Attending: Coverage Notice Comment: Last DP export: 01/17/19 9:43 am Patient Name: RAFAEL PETTY Page [phone] at 1103 All edits/amendments must be made on the electronic document DICTATION DATE: 01/17/19 110 LIBRARY SALES CONSULTANT: MELANY 01/17/191101 RPT#: [id number] [place] DATE: STATUS: ADM IN [facility] [address] [place] [address] END OF REPORT
--- NOTE | 2019-01-17 11:06 | NUR ---
PORT NEEDLE DC'D PER ULISES VELAZQUEZ
--- NOTE | 2019-01-17 11:10 | MORECARE ---
CASE MANAGEMENT DISCHARGE SUMMARY PATIENT: RAFAEL PETTY MARICEL UNIT: [id number] ADM DATE: 01/12/19 AGE: 43 : 75 SEX: F ROOM/BED: D.2216 AUTHOR: ELVAR,DOC PHYSICIAN: REFERRING PHYSICIAN: COLLEEN STEELE MD DATE OF SERVICE: 01/17/19 Discharge Plan Patient Name: RAFAEL PETTY Facility: [facility]:[place] : 1975 Planned Disposition: Home Health Service Anticipated Discharge Date: Discharge Date: Expected LOS: Initial Reviewer: [email or web address] Initial Review Date: 01/12/2019 Generated: 01/17/19 12:10 pm Comments DCP- Discharge Planning Updated by [email or web address]: Krista Sanchez on 01/17/19 10:[address] spoke with patient about home health and not being on service with [facility] [employer] [facility] she stated that was fine if she needed them she would call her dr and get back on DCP- Discharge Planning Updated by [email or web address]: Krista Sanchez on 01/17/19 10:[address] Spoke with David at [facility] in [place] and she stated that she is not on service anymore and that she did not want home health and would call them if she needed them again. DCP- Discharge Planning Updated by [email or web address]: Krista Sanchez on 01/17/19 9:[address] Patient Name: RAFAEL PETTY Admission Status: Elective Accout number: [id number] Admission Date: 01-12-2019 : 1975 Admission Diagnosis: Attending: COLLEEN STEELE Current LOS: 5 Anticipated DC Date: Planned Disposition: Home Health Service Primary Insurance: MEDICARE A & B Discharge Planning Comments: CM met with patient to complete initial dc planning assessment. CM educated patient on the CM role and verbal consent given by patient to complete assessment. Patient lives at home with her where she is independent with her care at home. At discharge patient plans to return home and feels this is a safe discharge. CM discussed availability of home health, rehab services, and medical equipment. She is current with [facility] in [place] and will continue that at [place]. She has a walker, BSC, Elevated Toilet seat, shower chair and wheelchair at home. John her will be the one to drive her home. Patient denied known discharge needs at this time. CM will continue to follow and will assist as needed with dc plans/needs. IMM served and explained. Airline Dispatcher: Krista Sanchez DCPIA - Discharge Planning Initial Assessment Updated by [email or web address]: Krista Sanchez on 01/17/19 10:40 am * Is the patient Alert and Oriented? Yes * How many steps to enter\exit or inside your home? ramp * PCP CLARICE * [facility] * Preadmission Environment Home with Family * ADLs Independent * Equipment Bedside Commode Elevated Toliet Seat Enteral Feeding and Supplies Rolling Walker Shower Chair Walker * List name and contact numbers for known caregivers / representatives who currently or will assist patient after discharge: JOHN () [phone] * Verbal permission to speak to the caregivers and representatives has been obtained from the patient. Yes * Community resources currently utilized Home Health * Please name any agencies selected above. [facility] IN [place] * Additional services required to return to the preadmission environment? No * Can the patient safely return to the preadmission environment? Yes * Has this patient been hospitalized within the prior 30 days at any hospital? Yes Coverage Notice Reviewer: [email or web address] Noemy Sanchez Notice Issued Date-Time: 01/17/2019 10:25 Notice Type: IM Discharge Notice Notice Delivered To: Patient Relationship to Patient: Flight Teacher Name: Delivery Method: HAND - Hand Delivered Anita Days: Prior Verbal Notification: Recipient Understood Notice: Yes Recipient Signature: Yes Med Rec Note Co-signed by Attending: Coverage Notice Comment: Reviewer: [email or web address] Noemy Sanchez Notice Issued Date-Time: 01/17/2019 10:25 Notice Type: Patient Choice Letter Notice Delivered To: Patient Relationship to Patient: Flight Teacher Name: Delivery Method: - Anita Days: Prior Verbal Notification: Recipient Understood Notice: Yes Recipient Signature: Yes Med Rec Note Co-signed by Attending: Coverage Notice Comment: Last DP export: 01/17/19 10:03 am Patient Name: RAFAEL PETTY Page 20483 at 1110 All edits/amendments must be made on the electronic document DICTATION DATE: 01/17/191108 SET UP MECHANIC: MELANY 01/17/191108 RPT#: [id number] DC DATE: STATUS: ADM IN [facility] [address] [place] [address] END OF REPORT
--- NOTE | 2019-01-17 11:20 | NUR ---
DC INSTRUCTIONS GIVEN PT VERABLIZES UNDERSTANDING, LEAVING VIA WHEELCHAIR VIA HOSPITAL STAFF VIA PRIVATE VECHILE IN STABLE CONDITON
--- NOTE | 2019-01-18 11:48 | MORECARE ---
CASE MANAGEMENT DISCHARGE SUMMARY PATIENT: RAFAEL PETTY MARICEL UNIT: [id number] ADM DATE: 01/12/19 AGE: 43 : 75 SEX: F ROOM/BED: D.2216 AUTHOR: LEVAR,DOC PHYSICIAN: REFERRING PHYSICIAN: COLLEEN STEELE MD DATE OF SERVICE: 01/18/19 Discharge Plan Patient Name: RAFAEL PETTY Facility: [facility]:[place] : 1975 Planned Disposition: Home Health Service Anticipated Discharge Date: Discharge Date: 01/17/2019 Expected LOS: Initial Reviewer: [email or web address] Initial Review Date: 01/12/2019 Generated: 01/18/19 12:47 pm Comments DCP- Discharge Planning Updated by [email or web address]: Krista Sanchez on 01/17/19 10:[address] spoke with patient about home health and not being on service with [facility] she stated that was fine if she needed them she would call her dr and get back on DCP- Discharge Planning Updated by [email or web address]: Krista Sanchez on 01/17/19 10:[address] Spoke with David at [facility] in [place] and she stated that she is not on service anymore and that she did not want home health and would call them if she needed them again. DCP- Discharge Planning Updated by [id number]: Krista Sanchez on 01/17/19 9:[address] Patient Name: RAFAEL PETTY Admission Status: Elective Accout number: [id number] Admission Date: 01-12-2019 : 1975 Admission Diagnosis: Attending: COLLEEN STEELE Current LOS: 5 Anticipated DC Date: Planned Disposition: Home Health Service Primary Insurance: MEDICARE A & B Discharge Planning Comments: CM met with patient to complete initial dc planning assessment. CM educated patient on the CM role and verbal consent given by patient to complete assessment. Patient lives at home with her where she is independent with her care at home. At discharge patient plans to return home and feels this is a safe discharge. CM discussed availability of home health, rehab services, and medical equipment. She is current with [facility] in [place] and will continue that at [place]. She has a walker, BSC, Elevated Toilet seat, shower chair and wheelchair at home. John her will be the one to drive her home. Patient denied known discharge needs at this time. CM will continue to follow and will assist as needed with dc plans/needs. IMM served and explained. Casting Wheel Operator Helper: Krista Sanchez DCPIA - Discharge Planning Initial Assessment Updated by [email or web address]: Krista Sanchez on 01/17/19 10:40 am * Is the patient Alert and Oriented? Yes * How many steps to enter\exit or inside your home? ramp * PCP CLARICE * [facility] * Preadmission Environment Home with Family * ADLs Independent * Equipment Bedside Commode Elevated Toliet Seat Enteral Feeding and Supplies Rolling Walker Shower Chair Walker * List name and contact numbers for known caregivers / representatives who currently or will assist patient after discharge: JOHN () [phone] * Verbal permission to speak to the caregivers and representatives has been obtained from the patient. Yes * Community resources currently utilized Home Health * Please name any agencies selected above. [employer] [facility] IN [place] * Additional services required to return to the preadmission environment? No * Can the patient safely return to the preadmission environment? Yes * Has this patient been hospitalized within the prior 30 days at any hospital? Yes Coverage Notice Reviewer: [email or web address] Noemy Sanchez Notice Issued Date-Time: 01/17/2019 10:25 Notice Type: IM Discharge Notice Notice Delivered To: Patient Relationship to Patient: Salvage Engineer Name: Delivery Method: HAND - Hand Delivered Anita Days: Prior Verbal Notification: Recipient Understood Notice: Yes Recipient Signature: Yes Med Rec Note Co-signed by Attending: Coverage Notice Comment: Reviewer: [email or web address] Noemy Sanchez Notice Issued Date-Time: 01/17/2019 10:25 Notice Type: Patient Choice Letter Notice Delivered To: Patient Relationship to Patient: Salvage Engineer Name: Delivery Method: - Anita Days: Prior Verbal Notification: Recipient Understood Notice: Yes Recipient Signature: Yes Med Rec Note Co-signed by Attending: Coverage Notice Comment: Last DP export: 01/17/19 10:10 am Patient Name: RAFAEL PETTY Page 69476 at 1148 All edits/amendments must be made on the electronic document DICTATION DATE: 01/18/19 1147 AIRCRAFT PAINTER APPRENTICE: MELANY 01/18/19 1147 RPT#: [id number] DC DATE:01/17/19 STATUS: DIS IN [facility] [address] [place] [address] END OF REPORT
== END 2019-01-17 12:36 | disposition home health service (06) | DRG 392 ==
LOC: D.MS 14:17
PROVIDERS: ADMIT Surgery; ATTEND Surgery
PROC: 0D758ZZ Dilation of Esophagus, Via Natural or Artificial Opening Endoscopic (ICD-10-PCS; principal; 2019-01-16 08:00)
DX: R13.10 Dysphagia, unspecified (principal); R62.7 Adult failure to thrive; G35 Multiple sclerosis; E86.0 Dehydration; E11.9 Type 2 diabetes mellitus without complications; I10 Essential (primary) hypertension

== ENCOUNTER 2019-02-02 15:48 | Inpatient (IN) | payer MEDICARE ==
[~2019-02-02] VITALS: Ht 162.6 cm; Wt 56.2 kg
--- NOTE | 2019-02-02 17:58 | HP ---
PATIENT: RAFAEL BRANNON MEDICAL RECORD: [id number] ACCOUNT: [id number] LOCATION:[facility] D.1204 : 75 ADMISSION DATE: 02/02/19 PCP: ZEKE ONEIL DO HISTORY AND PHYSICAL EXAMINATION HISTORY OF PRESENT ILLNESS: Ms. Brannon is a 43-year-old white female patient with multiple medical issues that presents to the clinic today with increasing nausea, vomiting, and abdominal pain. She has had multiple hospitalizations for similar complaints in the past. She has a history of multiple sclerosis that was diagnosed after she underwent a bariatric procedure. She has had recurrent problems with similar problems. She did have a G-tube for a while, but that is now out. She lost 250 pounds after undergoing gastric sleeve surgery. She has had a long-term hospitalization rehab for poor mobility. Most recently, she has been having increasing abdominal pain, vomiting, and difficulties keeping anything down. She has had multiple EGDs, manometry, and other GI evaluations. This does not seem to be really anything to do with her MS right now. She is going to be admitted for rehydration. PAST MEDICAL HISTORY: Significant for multiple sclerosis, folic acid deficiency, B12 deficiency, vitamin D deficiency, type 2 diabetes, hypertension, obstructive sleep disorder, chronic low back pain, anxiety, history of bariatric surgery. PAST SURGICAL HISTORY: Include times 2, knee surgery, gastric bypass 03/22/2017. ALLERGIES OR INTOLERANCES: INCLUDE ESGIC AND METOPROLOL. HOME MEDICATIONS: Lyrica 150 mg t.i.d., oxycodone 10 t.i.d. p.r.n., amlodipine 2.5 mg daily, verapamil 80 mg a day, thiamine, prednisone. FAMILY HISTORY: Remarkable for COPD and type 2 diabetes. SOCIAL HISTORY: The patient's mom recently . She is a smoker. She is , has 2 children. REVIEW OF SYSTEMS: Significant for weight loss and abdominal pain. No fever. Positive for nausea, vomiting. Bowels have been okay. No chest pain, no shortness of breath, generalized fatigue. No rashes. PHYSICAL EXAMINATION: GENERAL: Acutely/chronically ill. HEENT: Sclerae nonicteric. Mucous membranes are a little dry. SKIN: Turgor is poor. HEART: Regular. LUNGS: Clear. ABDOMEN: Some mild generalized tenderness. EXTREMITIES: Lower extremities reveal no edema. IMPRESSION: 1. Nausea and vomiting. 2. Status post bariatric surgery, complicated by subsequent development of MS. 3. Chronic pain. 4. Diabetes. 5. Hypertension. HISTORY AND PHYSICAL [id number] RAFAEL BRANNON PLAN: Admit. IV fluids. Consult Dr. Kendall who has seen her in the past. See orders for rest of the plan. TRANSINT:[id number] Voice Confirmation ID: [id number] DOCUMENT ID: [id number] ZEKE ONEIL DO at 1758 CC: [id number] DICTATION DATE: 02/02/19 1617 RECREATION WORKER: 02/02/19 1632 ADM IN [place] [id number] [place] [id number]
[2019-02-02 18:03] LABS: BASOPHILS 0.4 % (0-2); HEMATOCRIT 37.1 % (36.0-48.0); IMMATURE GRANULOCYTES 0.2 % (0-5); LYMPHOCYTES 29.6 % (15-50); MCH 28.9 pg (26.0-34.0); MCHC 32.3 g/dL (31.0-37.0); MCV 89.4 fL (80.0-100.0); MEAN PLATELET VOLUME 11.6 fL (7.4-10.4); MONOCYTES 4.7 % (2-11); NEUTROPHILS 64.1 % (40-80); PLATELET COUNT 188 10x3/uL (130-400); RBC 4.15 10x6/uL (4.00-5.40); RDW 13.5 % (11.5-14.5); WBC 5.1 10x3/uL (4.8-10.8)
[2019-02-02 18:18] VITALS: BP 152/93; BMI 21.3
[2019-02-02 18:20] LABS: ALBUMIN 3.3 g/dL (3.4-5.0); ALKALINE PHOSPHATASE 92 U/L (46-116); ALT (SGPT) 24 U/L (10-68); AMYLASE - SERUM 53 U/L (25-115); BILIRUBIN - TOTAL 0.39 mg/dL (0.2-1.3); CALC OSMOLALITY 288 mosm/kg (275-300); CALCIUM 8.9 mg/dL (8.5-10.1); CARBON DIOXIDE 25.1 mmol/L (21.0-32.0); CHLORIDE - SERUM 107 mmol/L (98-107); CREATININE - SERUM 0.7 mg/dL (0.6-1.3); GLUCOSE 148 mg/dL (74-106); LIPASE 198 U/L (73-393); MAGNESIUM - SERUM 1.7 mg/dL (1.8-2.4); PHOSPHOROUS 2.8 mg/dL (2.5-4.9); POTASSIUM - SERUM 3.1 mmol/L (3.5-5.1); PROTEIN - SERUM 6.5 g/dL (6.4-8.2); SODIUM 142 mmol/L (136-145); UREA NITROGEN 21 mg/dL (7-18); eGFR NON AFRICAN AMERICAN > 90 mL/min (90-120)
--- NOTE | 2019-02-02 18:37 | NUR ---
SPOKE TO NATALIE FOR OK TO ACCESS PORT. MULTIPLE ATTEMPTS FOR PERIPHERAL IV WITHOUT SUCCESS.
--- NOTE | 2019-02-02 18:49 | NUR ---
Left chest wall IPORT accessed after order. 20 gauge 1 inch needle inserted after sterile prep following hospital procedure. Good blood return, flushed with saline 10 ml. Krystal Ramesh RN
[2019-02-02 20:00] VITALS: BP 149/93
[2019-02-03] VITALS: BP 119/82
[2019-02-03 04:00] VITALS: BP 99/70
--- NOTE | 2019-02-03 07:25 | NUR ---
PT SITTING UP IN BED, EYES OPEN. ALERT AND ORIENTED. NO C/O OF PAIN. NO S/S OF ACUTE DISTRESS NOTED. UP AD LOUISE. SORES/SCRATCHES TO BUE. STAGE 2 ULCER TO RIGHT BUTTOCK. EDEMA TO RIGHT LEG AND LEFT FOOT. LEFT CHEST PORT, NS INFUSING @ 100ML/HR. DURAGESIC PATCH TO RIGHT CHEST. PT DENIES ANYTHING FURTHER AT THIS TIME. CALL LIGHT IN REACH. WILL CONTINUE TO MONITOR.
[2019-02-03 09:41] VITALS: BP 115/77
[2019-02-03 12:51] VITALS: Ht 162.6 cm; Wt 56.2 kg
[2019-02-03 13:53] VITALS: BP 128/84
--- NOTE | 2019-02-03 15:30 | NUR ---
ADMINISTERED ENEMA EARLIER, PT STATED SHE HAD A LARGE BM AND FEELS MUCH BETTER.
[2019-02-03 16:16] LABS: UDS - AMPHET NEGATIVE QUAL (NEGATIVE); UDS - BARB NEGATIVE QUAL (NEGATIVE); UDS - BENZO NEGATIVE QUAL (NEGATIVE); UDS - COCAINE NEGATIVE QUAL (NEGATIVE); UDS - OPIATE POSITIVE QUAL (NEGATIVE); UDS - PCP NEGATIVE QUAL (NEGATIVE); UDS - THC NEGATIVE QUAL (NEGATIVE)
[2019-02-03 16:47] LABS: APPEARANCE CLEAR (CLEAR); COLOR YELLOW (YELLOW); SPECIFIC GRAVITY 1.015 (1.005-1.020)
[2019-02-03 16:48] LABS: BILIRUBIN NEGATIVE (NEGATIVE); GLUCOSE 100 mg/dL (NEGATIVE); KETONE NEGATIVE (NEGATIVE); NITRITE NEGATIVE (NEGATIVE); PROTEIN NEGATIVE (NEGATIVE); UROBILINOGEN NORMAL (NORMAL)
--- NOTE | 2019-02-03 17:11 | MORECARE ---
CASE MANAGEMENT DISCHARGE SUMMARY PATIENT: RAFAEL PETTY MARICEL UNIT: [id number] ADM DATE: 02/02/19 AGE: 43 : 75 SEX: F ROOM/BED: D.1204 AUTHOR: ROBERTO CRISTOBAL PHYSICIAN: REFERRING PHYSICIAN: SHADE VENEGAS MD DATE OF SERVICE: 02/03/19 Discharge Plan Patient Name: RAFAEL PETTY Facility: [facility]:[place] : 1975 Planned Disposition: Home with Home Health Anticipated Discharge Date: Discharge Date: Expected LOS: Initial Reviewer: [email or web address] Initial Review Date: 02/03/2019 Generated: 02/03/19 6:11 pm Patient Name: RAFAEL PETTY Page [phone] at 1711 All edits/amendments must be made on the electronic document DICTATION DATE: 02/03/191709 BUTTON SEWER: MELANY 02/03/191709 RPT#: [id number] DC DATE: STATUS: ADM IN [facility] [address] [place] [address] END OF REPORT
--- NOTE | 2019-02-03 17:26 | MORECARE ---
CASE MANAGEMENT DISCHARGE SUMMARY PATIENT: RAFAEL PETTY MARICEL UNIT: [id number] ADM DATE: 02/02/19 AGE: 43 : 75 SEX: F ROOM/BED: D.1204 AUTHOR: ROBERTO CRISTOBAL PHYSICIAN: REFERRING PHYSICIAN: SHADE VENEGAS MD DATE OF SERVICE: 02/03/19 Discharge Plan Patient Name: RAFAEL PETTY Facility: [facility]:[place] : 1975 Planned Disposition: Home with Home Health Anticipated Discharge Date: Discharge Date: Expected LOS: Initial Reviewer: [email or web address] Initial Review Date: 02/03/2019 Generated: 02/03/19 6:26 pm DCPIA - Discharge Planning Initial Assessment Updated by [email or web address]: Martha Powell on 02/03/19 5:20 pm * Is the patient Alert and Oriented? Yes * How many steps to enter\exit or inside your home? RAMP * PCP DR ONEIL * [facility] * Preadmission Environment Home with Family * Partial ADLs (Assistance needed) Ambulation Transfers * Equipment Tub Bench Walker Wheelchair * Other Equipment N/A * List name and contact numbers for known caregivers / representatives who currently or will assist patient after discharge: LATANYA PETTY- SPOUSE- [phone] * Verbal permission to speak to the caregivers and representatives has been obtained from the patient. No * Community resources currently utilized Home Health * Please name any agencies selected above. [facility] * Additional services required to return to the preadmission environment? No * Can the patient safely return to the preadmission environment? Yes * Has this patient been hospitalized within the prior 30 days at any hospital? Yes Last DP export: 02/03/19 4:11 p Patient Name: RAFAEL PETTY Page 49812 at 1726 All edits/amendments must be made on the electronic document DICTATION DATE: 02/03/191725 MECHANICAL APPRENTICE: MELANY 02/03/191725 RPT#: [id number] DC DATE: STATUS: ADM IN [facility] [address] [place] [address] END OF REPORT
--- NOTE | 2019-02-03 17:37 | MORECARE ---
CASE MANAGEMENT DISCHARGE SUMMARY PATIENT: RAFAEL PETTY MARICEL UNIT: [id number] ADM DATE: 02/02/19 AGE: 43 : 75 SEX: F ROOM/BED: D.1204 AUTHOR: LEVAR,DOC PHYSICIAN: REFERRING PHYSICIAN: SHADE VENEGAS MD DATE OF SERVICE: 02/03/19 Discharge Plan Patient Name: RAFAEL PETTY Facility: [facility]:[place] : 1975 Planned Disposition: Home with Home Health Anticipated Discharge Date: Discharge Date: Expected LOS: Initial Reviewer: [email or web address] Initial Review Date: 02/03/2019 Generated: 02/03/19 6:37 pm Comments DCP- Discharge Planning Updated by [email or web address]: Martha Powell on 02/03/19 4:[address] CM MET WITH THE PATIENT FOR INITIAL ASSESSMENT AND DISCHARGE PLANNING. VERBAL CONSENT GIVEN TO PROCEED W/ ASSESSMENT .EDUCATED PATIENT ON ROLE OF CM AND DISCUSSED AVAILABLE SERVICES AT DISCHARGE. PATIENT IS ALERT AND ORIENTED. SHE STATES SHE HAS [employer] FOR SN SERVICES PRESENTLY. CM TO VERIFY STATUS WITH [employer]. SHE WAS IN [facility] FOR 5 MONTHS S/P SURGERY TO LOSE WEIGHT IN 2017. PATIENT STATES SHE WAS SEEN IN THE ER AT [facility] AND TREATED W/ 2 LITERS OF IVF 24 HRS AGO. SHE VISITED HER PCP, DR ONEIL, DIRECTED. SHE WAS ADMITTED TO [facility] FROM DR ONEIL'S OFFICE. PHARMACY- [facility] IN [place]. DME- WALKER, WHEELCHAIR, SHOWER BENCH, SAFETY RAILS IN SHOWER SURGEON- DR STEELE SHE WILL HAVE TRANSPORTATION TO HOME. CM WILL FOLLOW TO ASSIST W/ POST DISCHARGE NEEDS. DCPIA - Discharge Planning Initial Assessment Updated by [id number]: Martha Powell on 02/03/19 5:20 pm * Is the patient Alert and Oriented? Yes * How many steps to enter\exit or inside your home? RAMP * PCP DR ONEIL * Pharmacy [facility]- [place] * Preadmission Environment Home with Family * Partial ADLs (Assistance needed) Ambulation Transfers * Equipment Tub Bench Walker Wheelchair * Other Equipment N/A * List name and contact numbers for known caregivers / representatives who currently or will assist patient after discharge: LATANYA PETTY- SPOUSE- [phone] * Verbal permission to speak to the caregivers and representatives has been obtained from the patient. No * Community resources currently utilized Home Health * Please name any agencies selected above. [facility] * Additional services required to return to the preadmission environment? No * Can the patient safely return to the preadmission environment? Yes * Has this patient been hospitalized within the prior 30 days at any hospital? Yes Last DP export: 02/03/19 4:26 p Patient Name: RAFAEL PETTY Page [phone] at 1737 All edits/amendments must be made on the electronic document DICTATION DATE: 02/03/191736 JOB COUNSELOR: MELANY 02/03/191736 RPT#: [id number] DC DATE: STATUS: ADM IN [facility] [address] [place] [address] END OF REPORT
--- NOTE | 2019-02-03 18:05 | MORECARE ---
CASE MANAGEMENT DISCHARGE SUMMARY PATIENT: RAFAEL PETTY MARICEL UNIT: [id number] ADM DATE: 02/02/19 AGE: 43 : 75 SEX: F ROOM/BED: D.1204 AUTHOR: LEVAR,DOC PHYSICIAN: REFERRING PHYSICIAN: SHADE VENEGAS MD DATE OF SERVICE: 02/03/19 Discharge Plan Patient Name: RAFAEL PETTY Facility: [facility]:[place] : 1975 Planned Disposition: Home with Home Health Anticipated Discharge Date: Discharge Date: Expected LOS: Initial Reviewer: [email or web address] Initial Review Date: 02/03/2019 Generated: 02/03/19 7:04 pm Comments DCP- Discharge Planning Updated by [email or web address]: Martha Powell on 02/03/19 4:[address] CM MET WITH THE PATIENT FOR INITIAL ASSESSMENT AND DISCHARGE PLANNING. VERBAL CONSENT GIVEN TO PROCEED W/ ASSESSMENT .EDUCATED PATIENT ON ROLE OF CM AND DISCUSSED AVAILABLE SERVICES AT DISCHARGE. PATIENT IS ALERT AND ORIENTED. SHE STATES SHE HAS [email or web address] FOR SN SERVICES PRESENTLY. CM TO VERIFY STATUS WITH [employer]. SHE WAS IN [facility] FOR 5 MONTHS S/P SURGERY TO LOSE WEIGHT IN 2017. PATIENT STATES SHE WAS SEEN IN THE ER AT [facility] AND TREATED W/ 2 LITERS OF IVF 24 HRS AGO. SHE VISITED HER PCP, DR ONEIL, DIRECTED. SHE WAS ADMITTED TO [facility] FROM DR ONEIL'S OFFICE. PHARMACY- [facility] IN [place]. DME- WALKER, WHEELCHAIR, SHOWER BENCH, SAFETY RAILS IN SHOWER SURGEON- DR STEELE SHE WILL HAVE TRANSPORTATION TO HOME. CM WILL FOLLOW TO ASSIST W/ POST DISCHARGE NEEDS. DCPIA - Discharge Planning Initial Assessment Updated by [email or web address]: Martha Powell on 02/03/19 5:20 pm * Is the patient Alert and Oriented? Yes * How many steps to enter\exit or inside your home? RAMP * PCP DR ONEIL * Pharmacy [facility]- [place] * Preadmission Environment Home with Family * Partial ADLs (Assistance needed) Ambulation Transfers * Equipment Tub Bench Walker Wheelchair * Other Equipment N/A * List name and contact numbers for known caregivers / representatives who currently or will assist patient after discharge: LATANYA PETTY- SPOUSE- [phone] * Verbal permission to speak to the caregivers and representatives has been obtained from the patient. No * Community resources currently utilized Home Health * Please name any agencies selected above. [facility] * Additional services required to return to the preadmission environment? No * Can the patient safely return to the preadmission environment? Yes * Has this patient been hospitalized within the prior 30 days at any hospital? Yes Last DP export: 02/03/19 4:37 p Patient Name: RAFAEL PETTY Page [phone] at 1805 All edits/amendments must be made on the electronic document DICTATION DATE: 02/03/191803 PSYCHOLOGIST EXPERIMENTAL: MELANY 02/03/191803 RPT#: [id number] DC DATE: STATUS: ADM IN [facility] [address] [place] [address] END OF REPORT
--- NOTE | 2019-02-03 18:16 | NUR ---
PT RESTING IN BED, EYES OPEN. ALERT AND ORIENTED. C/O PAIN TO LEGS, GAVE OXYCODONE FOR PAIN. NO S/S OF ACUTE DISTRESS NOTED. PT DENIES ANYTHING FURTHER AT THIS TIME. CALL LIGHT IN REACH. WILL CONTINUE TO MONITOR.
[2019-02-03 19:43] VITALS: BP 137/90
[2019-02-04 00:58] VITALS: BP 112/85
[2019-02-04 04:43] VITALS: BP 153/96
[2019-02-04 05:29] LABS: BASOPHILS 0.3 % (0-2); EOSINOPHILS 2.6 % (0-7); HEMATOCRIT 29.9 % (36.0-48.0); HEMOGLOBIN 9.6 g/dL (12-16); LYMPHOCYTES 55.9 % (15-50); MCH 28.4 pg (26.0-34.0); MCHC 32.1 g/dL (31.0-37.0); MCV 88.5 fL (80.0-100.0); MEAN PLATELET VOLUME 11.1 fL (7.4-10.4); MONOCYTES 3.9 % (2-11); NEUTROPHILS 37.3 % (40-80); RBC 3.38 10x6/uL (4.00-5.40); RDW 13.5 % (11.5-14.5)
[2019-02-04 05:44] LABS: PLATELET COUNT 134 10x3/uL (130-400); WBC 3.8 10x3/uL (4.8-10.8)
[2019-02-04 05:52] LABS: CALCIUM 8.3 mg/dL (8.5-10.1); CARBON DIOXIDE 23.9 mmol/L (21.0-32.0); CHLORIDE - SERUM 112 mmol/L (98-107); CREATININE - SERUM 0.6 mg/dL (0.6-1.3); SODIUM 143 mmol/L (136-145); eGFR NON AFRICAN AMERICAN > 90 mL/min (90-120)
[2019-02-04 05:53] LABS: CALC OSMOLALITY 282 mosm/kg (275-300); GLUCOSE 73 mg/dL (74-106); POTASSIUM - SERUM 3.6 mmol/L (3.5-5.1); UREA NITROGEN 11 mg/dL (7-18)
[2019-02-04 08:14] VITALS: BP 143/81
--- NOTE | 2019-02-04 08:49 | NUR ---
AM MEDS GIVEN AT THIS TIME. NEW BAG OF IV FLUIDS HUNG AT THIS TIME. PT ASKING WHEN SHE CAN HAVE PAIN MEDICATION, INFORMED PT THAT IT WOULD BE 0930 BEFORE SHE COULD HAVE ANYTHING FOR PAIN. PT DENIES ANY OTHER NEEDS AT THIS TIME. CALL [facility] IN REACH, NAD NOTED, WILL CONTINUE TO MONITOR.
--- NOTE | 2019-02-04 09:38 | NUR ---
PERCOCET GIVEN FOR PAIN LEVEL OF 8/10. ALSO GAVE 4MG OF ZOFRAN FOR NAUSEA.
[2019-02-04 10:10] LABS: FOLATE (FOLIC ACID) - SERUM >20.0 ng/mL (>3.0)
[2019-02-04 13:17] VITALS: BP 108/77
--- NOTE | 2019-02-04 13:21 | NUR ---
GAVE PERCOCET FOR PAIN LEVEL OF 8/10, ALSO GAVE 4MG OF ZOFRAN FOR NAUSEA. PT DENIES ANY OTHER NEEDS AT THIS TIME. CALL LIGHT IN REACH, NAD NOTED, WILL CONTINUE TO MONITOR.
[2019-02-04 16:09] VITALS: BP 126/78
--- NOTE | 2019-02-04 17:25 | NUR ---
PT RESTING COMFORTABLY IN BED WITH EYES CLOSED, NAD NOTED, CALL LIGHT IN REACH.
--- NOTE | 2019-02-04 18:13 | NUR ---
GAVE PERCOCET FOR PAIN LEVEL OF 8/10, ALSO GAVE 4MG OF ZOFRAN FOR NAUSEA. PT STATING THAT DR. VENEGAS TOLD HER THAT HE WOULD CHANGE HER PAIN MEDICATION TO SOMETHING STRONGER. CALLED DR. VENEGAS AND RECEIVED ORDER FOR 1MG OF DILAUDID Q4PRN FOR BREAK THROUGH PAIN.
--- NOTE | 2019-02-04 19:09 | NUR ---
PATIENT RESTING IN BED AND REQUESTED PAIN MEDS WHEN AVAILABLE. PATIENT DENIES OTHER NEEDS AT THIS TIME. BED IN LOWEST POSITION AND CALL LIGHT WITHIN REACH. WILL CHECK ON PAIN MEDICATION AND CONTINUE TO MONITOR.
[2019-02-04 20:08] VITALS: BP 144/90
[2019-02-05 00:20] VITALS: BP 133/88
[2019-02-05 04:58] VITALS: BP 130/87
[2019-02-05 07:37] VITALS: BP 130/91
[2019-02-05 07:48] LABS: BASOPHILS 0.2 % (0-2); EOSINOPHILS 1.9 % (0-7); HEMATOCRIT 29.2 % (36.0-48.0); HEMOGLOBIN 9.4 g/dL (12-16); IMMATURE GRANULOCYTES 0.2 % (0-5); LYMPHOCYTES 39.3 % (15-50); MCH 28.3 pg (26.0-34.0); MCHC 32.2 g/dL (31.0-37.0); MEAN PLATELET VOLUME 11.1 fL (7.4-10.4); MONOCYTES 4.6 % (2-11); NEUTROPHILS 53.8 % (40-80); PLATELET COUNT 140 10x3/uL (130-400); RBC 3.32 10x6/uL (4.00-5.40); RDW 13.6 % (11.5-14.5); WBC 5.7 10x3/uL (4.8-10.8)
[2019-02-05 07:56] LABS: CALCIUM 7.6 mg/dL (8.5-10.1); CARBON DIOXIDE 24.8 mmol/L (21.0-32.0); CHLORIDE - SERUM 114 mmol/L (98-107); CREATININE - SERUM 0.6 mg/dL (0.6-1.3); POTASSIUM - SERUM 3.7 mmol/L (3.5-5.1); SODIUM 144 mmol/L (136-145); eGFR NON AFRICAN AMERICAN > 90 mL/min (90-120)
[2019-02-05 08:02] LABS: CALC OSMOLALITY 281 mosm/kg (275-300); GLUCOSE 45 mg/dL (74-106); UREA NITROGEN 6 mg/dL (7-18)
--- NOTE | 2019-02-05 08:12 | NUR ---
WAS REPORTED FROM LAB THAT PT GLUCOSE WAS 45. RECHECKED BLOOD SUGAR AND IT IS 112 NOW. PT A/O X4, RESP EVEN AND NONLABORED ON RA. LT CHEST INFUSAPORT INFUSING NS AT 100CC/HR. PT DENIES ANY NEEDS AT THIS TIME. CALL LIGHT IN REACH, NAD NOTED, WILL CONTINUE TO MONITOR.
[2019-02-05 11:22] VITALS: BP 124/83
--- NOTE | 2019-02-05 12:46 | NUR ---
PERCOCET GIVEN FOR PAIN LEVEL OF 7/10. PT DENIES ANY OTHER NEEDS AT THIS TIME. CALL LIGHT IN REACH, NAD NOTED, WILL CONTINUE TO MONITOR.
--- NOTE | 2019-02-05 14:44 | NUR ---
GAVE 1MG OF DILAUDID FOR PAIN LEVEL OF 8/10. PT DENIES ANY OTHER NEEDS AT THIS TIME. CALL LIGHT IN REACH, NAD NOTED,W ILL CONTINUE TO MONITOR.
[2019-02-05 15:28] VITALS: BP 137/94
--- NOTE | 2019-02-05 15:32 | NUR ---
ASKED PT IF SHE WANTED TO GET IN THE SHOWER, PT STATED " I WILL AFTER A WHILE".
--- NOTE | 2019-02-05 17:07 | NUR ---
PERCOCET GIVEN FOR PAIN LEVEL OF 7/10. PT EATING DINNER, DENIES ANY OTHER NEEDS AT THIS TIME. CALL LIGHT IN REACH, NAD NOTED.
--- NOTE | 2019-02-05 19:20 | NUR ---
PATIENT RESTING IN BED AND DENIES NEEDS AT THIS TIME. NO S/S OF DISTRESS. BED IN LOWEST POSITION AND CALL LIGHT WITHIN REACH. ENCOURAGED THE PATIENT TO CALL IF SHE HAS NEEDS. WILL CONTINUE TO MONITOR.
[2019-02-05 19:27] VITALS: BP 140/90
[2019-02-06] VITALS: BP 113/81
[2019-02-06 04:34] VITALS: BP 133/83
--- NOTE | 2019-02-06 07:10 | NUR ---
AM ROUNDS- PT SITTING IN BED, WATCHING TV. A/O X4, RESP EVEN AND NONALABORED ON RA. LT CHEST INFUSAPORT INFUSING NS AT 100CC/HR. PT RATES PAIN LEVEL NOW 5/10, DENIES ANY NEEDS AT THIS TIME. CALL LIGHT IN REACH, NAD NOTED, WILL CONTINUE PLAN OF CARE.
[2019-02-06 07:19] LABS: BASOPHILS 0.3 % (0-2); EOSINOPHILS 1.6 % (0-7); HEMOGLOBIN 9.4 g/dL (12-16); IMMATURE GRANULOCYTES 0.2 % (0-5); LYMPHOCYTES 26.3 % (15-50); MCH 28.6 pg (26.0-34.0); MCHC 32.4 g/dL (31.0-37.0); MCV 88.1 fL (80.0-100.0); MEAN PLATELET VOLUME 11.9 fL (7.4-10.4); MONOCYTES 3.6 % (2-11); PLATELET COUNT 129 10x3/uL (130-400); RBC 3.29 10x6/uL (4.00-5.40); RDW 13.7 % (11.5-14.5); WBC 6.4 10x3/uL (4.8-10.8)
[2019-02-06 07:33] LABS: CALC OSMOLALITY 279 mosm/kg (275-300); CALCIUM 8.1 mg/dL (8.5-10.1); CARBON DIOXIDE 25.7 mmol/L (21.0-32.0); CHLORIDE - SERUM 111 mmol/L (98-107); CREATININE - SERUM 0.6 mg/dL (0.6-1.3); SODIUM 143 mmol/L (136-145); UREA NITROGEN 5 mg/dL (7-18); eGFR NON AFRICAN AMERICAN > 90 mL/min (90-120)
[2019-02-06 07:35] LABS: GLUCOSE 60 mg/dL (74-106)
--- NOTE | 2019-02-06 07:38 | NUR ---
NOTIFIED BY LAB OF LOW GLUCOSE OF 60, RECHECKED BLOOD SUGAR AND IT WAS 98, PT JUST FINISHED EATING BREAKAST.
--- NOTE | 2019-02-06 08:06 | NUR ---
AM MEDS GIVEN AT THIS TIME. ALSO GAVE PERCOCET FOR PAIN LEVEL OF 7/10. NEW BAG OF NS HUNG ALSO. PT DENIES ANY OTHER NEEDS AT THIS TIME. CALL LIGHT IN REACH, NAD NOTED, WILL CONTINUE TO MONITOR.
[2019-02-06 08:27] VITALS: BP 130/86
--- NOTE | 2019-02-06 10:08 | NUR ---
GAVE 1MG OF DILAUDID FOR PAIN LEVEL OF 8/10. PT DENIES ANY OTHER NEEDS AT THIS TIME. CALL LIGHT IN REACH, NAD NOTED, WILL CONTINUE PLAN OF CARE.
[2019-02-06 12:31] VITALS: BP 144/87
--- NOTE | 2019-02-06 14:43 | NUR ---
PERCOCET GIVEN FOR PAIN LEVEL OF 8/10. PT DENIES ANY OTHER NEEDS AT THIS TIME. CALL LIGHT IN REACH, NAD NOTED,W ILL CONTINUE TO MONITOR.
[2019-02-06 17:03] VITALS: BP 147/95
--- NOTE | 2019-02-06 17:51 | NUR ---
GAVE 1MG OF DILAUDID FOR PAIN LEVEL OF 8/10. CONSENTS FOR PROCEDURE SIGNED BY PT AND PLACED ON CHART.
--- NOTE | 2019-02-06 19:27 | NUR ---
PATIENT RESTING IN BED AND DENIES NEEDS AT THIS TIME. BED IN LOWEST POSITION AND CALL LIGHT WITHIN REACH. ENCOURAGED THE PATIENT TO CALL IF SHE HAS NEEDS. WILL CONTINUE TO MONITOR.
[2019-02-06 20:18] VITALS: BP 143/93
[2019-02-07] VITALS (7 sets, daily range): BP systolic 122–154; BP diastolic 79–96
[2019-02-07 07:02] LABS: HEMATOCRIT 29.2 % (36.0-48.0); HEMOGLOBIN 9.8 g/dL (12-16); LYMPHOCYTES 17.3 % (15-50); MCH 29.4 pg (26.0-34.0); MCHC 33.6 g/dL (31.0-37.0); MCV 87.7 fL (80.0-100.0); MEAN PLATELET VOLUME 12.1 fL (7.4-10.4); NEUTROPHILS 78.8 % (40-80); PLATELET COUNT 111 10x3/uL (130-400); RBC 3.33 10x6/uL (4.00-5.40); RDW 13.5 % (11.5-14.5)
[2019-02-07 07:07] LABS: CALC OSMOLALITY 273 mosm/kg (275-300); CALCIUM 8.1 mg/dL (8.5-10.1); CARBON DIOXIDE 26.3 mmol/L (21.0-32.0); CHLORIDE - SERUM 108 mmol/L (98-107); CREATININE - SERUM 0.6 mg/dL (0.6-1.3); POTASSIUM - SERUM 3.4 mmol/L (3.5-5.1); SODIUM 140 mmol/L (136-145); UREA NITROGEN 5 mg/dL (7-18); eGFR NON AFRICAN AMERICAN > 90 mL/min (90-120)
[2019-02-07 07:09] LABS: WBC 8.2 10x3/uL (4.8-10.8)
[2019-02-07 07:10] LABS: GLUCOSE 64 mg/dL (74-106)
--- NOTE | 2019-02-07 07:39 | NUR ---
MORNING ROUNDS MADE. PT A/O X 4. STATES PAIN IN MIDSTERNAL REGION. PT REQUESTED IV PAIN SHOT. INFORMED PT THAT I WOULD CHECK TO SEE IF IT WAS TIME FOR PAIN MEDICATION. VITALS TAKEN, STABLE. L CHEST INFUSAPORT, NS @ 100 ML/HR, PATENT, NO REDNESS OR EDEMA NOTED, DRSG C/D/I. RM AIR, BREATHING EVEN AND UNLABORED. PT HAS BEEN NPO SINCE MIDNIGHT FOR EGD TODAY. NO FURTHER CONCERNS AT THIS TIME. BED LOWERED ADN LOCKED. CL IN REACH. WILL CTM.
--- NOTE | 2019-02-07 08:40 | NUR ---
PT TOOK MEDS WITHOUT DIFFICULTY. C/O PAIN AT A 7 IN ABD, DILAUDID GIVEN VIA INFUSA PORT TO L CHEST. PATENT, DRSG C/D/I. NO FURTHER COMPLAINTS AT THIS TIME. WILL CTM.
--- NOTE | 2019-02-07 11:05 | NUR ---
TYLENOL GIVEN FOR PAIN IN R CHEST/RIB REGION.
--- NOTE | 2019-02-07 12:22 | NUR ---
I have reviewed this patient and I concur with the Shift Assessment completed by the Licensed Practical Nurse today this shift.
--- NOTE | 2019-02-07 13:10 | NUR ---
Nutrition follow up NPO for EGD today RD following
--- NOTE | 2019-02-07 13:27 | NUR ---
PT LAYING IN BED RESTING. AWAITING TO GO FOR EGD WITH DR. LAGUNAS. PT HAS REMAINED NPO SINCE MID. NO FURTHER CONCERNS OR COMPLAINTS AT THIS TIME. WILL CTM.
[2019-02-08 04:00] VITALS: BP 131/82
[2019-02-08 05:18] LABS: BASOPHILS 0 % (0-2); EOSINOPHILS 2.4 % (0-7); HEMATOCRIT 27.7 % (36.0-48.0); LYMPHOCYTES 42.7 % (15-50); MCH 28.3 pg (26.0-34.0); MCHC 32.5 g/dL (31.0-37.0); MCV 87.1 fL (80.0-100.0); MEAN PLATELET VOLUME 11.5 fL (7.4-10.4); MONOCYTES 4.8 % (2-11); NEUTROPHILS 50.1 % (40-80); PLATELET COUNT 122 10x3/uL (130-400); RBC 3.18 10x6/uL (4.00-5.40); RDW 13.5 % (11.5-14.5)
[2019-02-08 05:53] LABS: CALC OSMOLALITY 277 mosm/kg (275-300); CHLORIDE - SERUM 108 mmol/L (98-107); CREATININE - SERUM 0.5 mg/dL (0.6-1.3); POTASSIUM - SERUM 3.8 mmol/L (3.5-5.1); SODIUM 142 mmol/L (136-145); UREA NITROGEN 5 mg/dL (7-18); eGFR NON AFRICAN AMERICAN > 90 mL/min (90-120)
[2019-02-08 05:58] LABS: WBC 3.7 10x3/uL (4.8-10.8)
[2019-02-08 06:06] LABS: GLUCOSE 58 mg/dL (74-106)
--- NOTE | 2019-02-08 06:34 | NUR ---
PATIENT IN BED IN LOW FOWLERS POSITIONS. ALERT AND ORIENT X4. RESPIRATIONS EVEN AND UNLABORED. VITAL SIGNS STABLE AND AFEBRILE. NO VISUAL CUES OF DISTRESS NOTED. DENIES ANY OTHER NEEDS AT THIS TIME. BED LOW, SIDE RAILS X2. CALL LIGHT IN REACH. WILL CONTINUE TO MONITOR.
--- NOTE | 2019-02-08 06:50 | NUR ---
INITIAL ROUNDING ON THE PATIENT, SHE IS AWAKE AND COMPLAINING OF PAIN. SHE ALSO INQUIRED IF HER PROCEDURE IS BEING DONE TODAY. SHE ASKED WHEN HER NEXT PAIN MED WAS DUE, AND RESPONSE WAS [id number].
[2019-02-08 07:29] VITALS: BP 150/93
--- NOTE | 2019-02-08 08:41 | NUR ---
CALLED DR BENITEZ OFFICE TO INQUIRE ABOUT THE PATIENTS PROCEDURE, TO SEE IF IT IS GOING TO STILL BE DONE TODAY
--- NOTE | 2019-02-08 11:05 | NUR ---
INFORMED THE PATIENT THAT HER EGD HAS BEEN RESCHEDULED, AND THAT SHE IS NOW ON CLEAR LIQUID DIET UNTIL MIDNIGHT.
--- NOTE | 2019-02-08 13:51 | NUR ---
Nutrition follow up EGD rescheduled for tomorrow. Pt on clearliquid diet until midnight Pt has been NPO or clear liquid >/=4 days, recommend to consider alternate nutrition support RD following
[2019-02-08 16:18] VITALS: BP 170/95
--- NOTE | 2019-02-08 18:42 | NUR ---
THE PATIENT HAS SOME SWELLING/PUFFY TO THE RIGHT SIDE OF HER FACE, NO SOB AND NO PAIN PER THE PATIENT,
[2019-02-08 20:00] VITALS: BP 145/102
[2019-02-09] VITALS (7 sets, daily range): BP systolic 122–151; BP diastolic 84–120
--- NOTE | 2019-02-09 02:00 | NUR ---
RESPONDED TO PT YELLING LOUDLY IN ROOM. FOUND HER IN BATHROOM SHOWER LAYING ON HER BACK TRYING TO RISE. STATED SHE WAS OK BUT SHE HIT HER HEAD AND LANDED ON HER LEFT HIP. REPORTED TO ME THAT HER HEAD DID NOT HURT. NO REDNESS, SWELLING, OR TRAUAMA NOTED TO HEAD. NO SIGNS OF IMPACT OR INJURY TO LEFT HIP. ASSISTED PT TO STAND UP, TRANSFERRED TO COMMODE TO FINISH INTENDED URINATION. SHE STATED "THAT HER HEAD DID NOT HURT AND HER HIP DID NOT EITHER." INSTRUCTED TO USE CALL LIGHT TO TRANSFER BACK TO BED WHEN READY. SHE THEN FINISHED AND TRANSFERRED BACK TO BED BY HERSELF DESPITE INSTRUCTION. NOTED NO VISUAL ACCUTER CHANGES IN ABILITY TO ABULATE. DENIES ANY OTHER NEEDS AT THIS TIME AND STATES,"I AM FINE. I DIDNT HURT ANYTHING." BED LOW, SR UP X2. CALL LIGHT IN REACH. WILL CONTINUE TO MONITOR.
--- NOTE | 2019-02-09 07:01 | NUR ---
INITIAL ROUNDING, PATIENT ASLEEP WITH LIGHTS OFF AND TV ON. IV INFUSING TO LEFT CHEST PORT. CALL LIGHT IN REACH
--- NOTE | 2019-02-09 08:43 | NUR ---
PATIENT LEFT VIA BED WITH GI STAFF, PATIENT WAS PREOPED ORDERED, CHART SENT WITH THE PATIENT.
--- NOTE | 2019-02-09 09:26 | NUR ---
SHAUNA FROM GI LAB CALLED TO GIVE REPORT POST EGD. VERBAL ORDER TO START PATIENT ON CLEAR LIQUID DIET AND ADVANCE TO FULL LIQUID.
--- NOTE | 2019-02-09 09:40 | NUR ---
PATIENT ARRIVED BACK VIA BED. SHE IS RESTING WITH EYES CLOSED, VITAL SIGNS WNL
[2019-02-09 11:31] LABS: BASOPHILS 0.3 % (0-2); EOSINOPHILS 1.3 % (0-7); HEMATOCRIT 35.4 % (36.0-48.0); LYMPHOCYTES 23.3 % (15-50); MCH 28.1 pg (26.0-34.0); MCHC 32.2 g/dL (31.0-37.0); MCV 87.2 fL (80.0-100.0); MEAN PLATELET VOLUME 11.5 fL (7.4-10.4); MONOCYTES 4.1 % (2-11); PLATELET COUNT 184 10x3/uL (130-400); RBC 4.06 10x6/uL (4.00-5.40); RDW 13.4 % (11.5-14.5); WBC 3.9 10x3/uL (4.8-10.8)
[2019-02-09 11:33] LABS: HEMOGLOBIN 11.4 g/dL (12-16)
[2019-02-09 11:37] LABS: CALCIUM 8.9 mg/dL (8.5-10.1); CARBON DIOXIDE 28.2 mmol/L (21.0-32.0); CHLORIDE - SERUM 105 mmol/L (98-107); CREATININE - SERUM 0.6 mg/dL (0.6-1.3); POTASSIUM - SERUM 3.5 mmol/L (3.5-5.1); SODIUM 141 mmol/L (136-145); eGFR NON AFRICAN AMERICAN > 90 mL/min (90-120)
[2019-02-09 11:44] LABS: CALC OSMOLALITY 277 mosm/kg (275-300); GLUCOSE 90 mg/dL (74-106); UREA NITROGEN 3 mg/dL (7-18)
--- NOTE | 2019-02-09 13:03 | OP ---
PATIENT NAME: RAFAEL PETTY MEDICAL RECORD: [id number] :75 LOCATION:D.M3 D.1204 ADMISSION DATE:02/02/19 SURGEON: COLLEEN STEELE MD DATE OF OPERATION: 02/09/2019 SURGEON: Colleen Steele MD PREOPERATIVE DIAGNOSIS: Dysphagia. POSTOPERATIVE DIAGNOSIS: Dysphagia. ANESTHESIA: Total intravenous anesthesia. COMPLICATIONS: None. SPECIMENS: None. OPERATIVE COURSE: After consent was obtained, the patient was taken to the endoscopy suite. At this time, a timeout was taken to confirm the correct patient and procedure. Hurricaine [place] was administered. Bite block was placed. Next, total intravenous anesthesia was given and the patient was placed in left lateral decubitus position. The scope was then inserted through the bite block into the posterior oropharynx under direct endoscopic vision, it was passed posterior to the epiglottis and advanced the esophagus under direct vision. The scope was easily traversed across the GE junction. 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 The scope was easily traversed across the stricture. The scope was retroflexed at this time. Next, the scope was then advanced into the pylorus and to the first and second portion of the duodenum. The duodenum appeared within normal limits. The scope was withdrawn to the pylorus. Again, the pylorus was noted to be tight. At this time, the injection needle with Botox was passed through the working channel of the scope. Then, 3 cc of Botox were injected into 3 separate quadrants of the pylorus totalling 10 cc of injection with a total of 100 units of Botox. Next, the 18-20 mm dilating balloon was passed through the working channel. The balloon was inflated across the stricture and inflated to 20 mm. It was held there for approximately 3 minutes. The balloon was deflated. There was no mucosal trauma noted. The balloon was then inflated a second time and held in place for 2 minutes. Again this time, the balloon was deflated and the balloon dilator was removed. Again, the mucosa showed no evidence of trauma. There was no active bleeding. At this time, the scope was removed and the procedure was terminated. At the end of the case, all needle and instrument counts were correct. No complications occurred. The patient tolerated the procedure well and was transferred to the recovery room in satisfactory condition. TRANSINT:[id number] Voice Confirmation ID: [id number] DOCUMENT ID: [id number] OPERATIVE REPORT [id number] RAFAEL PETTY,COLLEEN Hummel MD at 1303 CC: [id number] DICTATION DATE: 02/09/19 1050 STICK ROLLER: 02/09/19 1253 ADM IN [place] [id number] [place] [address]
--- NOTE | 2019-02-09 13:49 | NUR ---
DR STEELE RETURNED THE PAGE, STATED THAT HE DOES NOT MANAGE THE PATIENTS PAIN AND HE IS NOT CHANGING THE MEDS AT THIS ITME. HE ALSO CLEARED HER FOR DISCHARGE AND ASKED THE PATIENT FOLLOW UP WITH HIM IN [address] ABARCA HERE TO SEE THE PATIENT
--- NOTE | 2019-02-10 02:35 | NUR ---
PAGED JV MCELROY FOR ORDER REGARDING PT FALL IN BATHROOM. AWAITING CALL BACK.
--- NOTE | 2019-02-10 03:03 | NUR ---
, LAWERENCE, NOTIFIED OF PT FALL THIS AM AROUND 0200. NO COMPLAINTS OR CONCERNS FROM . WILL CTM
--- NOTE | 2019-02-10 03:03 | NUR ---
JV MCELROY PAGED FOR ORDERS REGARDING PT FALL. AWAITING CALL BACK.
--- NOTE | 2019-02-10 03:12 | NUR ---
JV NOTIFED ABOUT PT FALL IN BATHROOM. ORDERS GIVEN TO ORDER HIP X RAY IN AM IF HIP PAIN CONTINUES TO WORSEN. NO ODERS FOR HEAD CT DUE TO NO C/O OF HEAD ACHE AND NO VISIBLE HEAD INJURIES. NO FURTHER ORDERS AT THIS TIME. WILL CTM.
[2019-02-10 05:42] VITALS: BP 153/92
[2019-02-10 06:22] LABS: BASOPHILS 0.2 % (0-2); EOSINOPHILS 1.6 % (0-7); HEMATOCRIT 29.7 % (36.0-48.0); HEMOGLOBIN 9.6 g/dL (12-16); IMMATURE GRANULOCYTES 0.2 % (0-5); LYMPHOCYTES 34.5 % (15-50); MCH 28.2 pg (26.0-34.0); MCHC 32.3 g/dL (31.0-37.0); MCV 87.1 fL (80.0-100.0); MEAN PLATELET VOLUME 11.2 fL (7.4-10.4); MONOCYTES 5.4 % (2-11); NEUTROPHILS 58.1 % (40-80); PLATELET COUNT 155 10x3/uL (130-400); RBC 3.41 10x6/uL (4.00-5.40); RDW 13.5 % (11.5-14.5); WBC 4.4 10x3/uL (4.8-10.8)
[2019-02-10 06:43] LABS: CALC OSMOLALITY 286 mosm/kg (275-300); CALCIUM 8.5 mg/dL (8.5-10.1); CARBON DIOXIDE 26.7 mmol/L (21.0-32.0); CHLORIDE - SERUM 111 mmol/L (98-107); CREATININE - SERUM 0.6 mg/dL (0.6-1.3); GLUCOSE 86 mg/dL (74-106); POTASSIUM - SERUM 3.2 mmol/L (3.5-5.1); SODIUM 146 mmol/L (136-145); UREA NITROGEN 3 mg/dL (7-18); eGFR NON AFRICAN AMERICAN > 90 mL/min (90-120)
--- NOTE | 2019-02-10 07:00 | NUR ---
PATIENT RECIEVED FROM PREVIOUS SHIFT RESTING IN BED. PATIENT FELL LAST NIGHT AND CONTINUES TO C/O RIGHT HIP PAIN. NO BRUISING, EDEMA, OR REDNESS NOTED. PATIENT HAD PERCOCET AT 625, REPORTS PAIN TOLERABLE AT THIS TIME
[2019-02-10 07:50] VITALS: BP 176/80
--- NOTE | 2019-02-10 13:04 | NUR ---
HUBBER NEEDLE REMOVED FROM RIGHT UPPER CHEST PORT. NO REDENESS, EDEMA, AND NO ABNORMAL BLEEDING NOTED. DISCHARGE INSTRUCTIONS GIVEN TO PATIENT WITH UNDERSTANDING VOICED. PATIENT TAKEN BY WHEELCHAIR TO PRIVATE CAR
--- NOTE | 2019-02-10 13:25 | MORECARE ---
CASE MANAGEMENT DISCHARGE SUMMARY PATIENT: RAFAEL PETTY MARICEL UNIT: [id number] ADM DATE: 02/02/19 AGE: 43 : 75 SEX: F ROOM/BED: D.1204 AUTHOR: LEVAR,DOC PHYSICIAN: REFERRING PHYSICIAN: SHADE VENEGAS MD DATE OF SERVICE: 02/10/19 Discharge Plan Patient Name: RAFAEL PETTY Facility: [facility]:[place] : 1975 Planned Disposition: Home with Home Health Anticipated Discharge Date: 02/10/19 Discharge Date: 02/10/2019 Expected LOS: 8 Initial Reviewer: [email or web address] Initial Review Date: 02/03/2019 Generated: 02/10/19 2:25 pm Comments DCP- Discharge Planning Updated by [email or web address]: Martha Powell on 02/10/19 12:[address] Patient for discharge today. Discharge IMM served. copy given to the patient. Signed hard copy to the chart. Patient stated she had been on service w/ [facility] prior to admission. Telephone call to [facility] in [place]. Patient was a nonadmit two previous referrals per her request. Will call her to verify if she does or does not want home health. DCP- Discharge Planning Updated by [email or web address]: Martha Powell on 02/03/19 4:[address] CM MET WITH THE PATIENT FOR INITIAL ASSESSMENT AND DISCHARGE PLANNING. VERBAL CONSENT GIVEN TO PROCEED W/ ASSESSMENT .EDUCATED PATIENT ON ROLE OF CM AND DISCUSSED AVAILABLE SERVICES AT DISCHARGE. PATIENT IS ALERT AND ORIENTED. SHE STATES SHE HAS [facility] FOR SN SERVICES PRESENTLY. CM TO VERIFY STATUS WITH [employer]. SHE WAS IN [facility] FOR 5 MONTHS S/P SURGERY TO LOSE WEIGHT IN 2017. PATIENT STATES SHE WAS SEEN IN THE ER AT [facility] AND TREATED W/ 2 LITERS OF IVF 24 HRS AGO. SHE VISITED HER PCP, DR ONEIL, DIRECTED. SHE WAS ADMITTED TO [facility] FROM DR ONEIL'S OFFICE. PHARMACY- [facility] IN [place]. DME- WALKER, WHEELCHAIR, SHOWER BENCH, SAFETY RAILS IN SHOWER SURGEON- DR STEELE SHE WILL HAVE TRANSPORTATION TO HOME. CM WILL FOLLOW TO ASSIST W/ POST DISCHARGE NEEDS. DCPIA - Discharge Planning Initial Assessment Updated by [email or web address]: Martha Powell on 02/03/19 5:20 pm * Is the patient Alert and Oriented? Yes * How many steps to enter\exit or inside your home? RAMP * PCP DR ONEIL * [facility] * Preadmission Environment Home with Family * Partial ADLs (Assistance needed) Ambulation Transfers * Equipment Tub Bench Walker Wheelchair * Other Equipment N/A * List name and contact numbers for known caregivers / representatives who currently or will assist patient after discharge: LATANYA PETTY- [place]- [phone] * Verbal permission to speak to the caregivers and representatives has been obtained from the patient. No * Community resources currently utilized Home Health * Please name any agencies selected above. [facility] * Additional services required to return to the preadmission environment? No * Can the patient safely return to the preadmission environment? Yes * Has this patient been hospitalized within the prior 30 days at any hospital? Yes Coverage Notice Reviewer: [id number] - Martha Powell Notice Issued Date-Time: 02/10/2019 13:07 Notice Type: IM Discharge Notice Notice Delivered To: Patient Relationship to Patient: Self Senior Electrical Controls Engineer Name: Delivery Method: HAND - Hand Delivered Anita Days: Prior Verbal Notification: Recipient Understood Notice: Yes Recipient Signature: Yes Med Rec Note Co-signed by Attending: Coverage Notice Comment: DISCHARGE IMM SERVED. PATIENT HAD NO QUESTIONS OR CONCERNS. SIGNATURE OBTAINED. COPY TO THE PATIENT. SIGNED COPY TO THE HARD COVER CHART. Last DP export: 02/03/19 5:04 p Patient Name: RAFAEL PETTY Page 33410 at 1325 All edits/amendments must be made on the electronic document DICTATION DATE: 02/10/19 1324 LINE MANAGER: MELANY 02/10/19 1324 RPT#: [id number] DC DATE:02/10/19 STATUS: DIS IN [facility] [address] [place] [address] END OF REPORT
--- NOTE | 2019-02-10 15:42 | MORECARE ---
CASE MANAGEMENT DISCHARGE SUMMARY PATIENT: RAFAEL PETTY MARICEL UNIT: [id number] ADM DATE: 02/02/19 AGE: 43 : 75 SEX: F ROOM/BED: D.1204 AUTHOR: LEVAR,DOC PHYSICIAN: REFERRING PHYSICIAN: SHADE VENEGAS MD DATE OF SERVICE: 02/10/19 Discharge Plan Patient Name: RAFAEL PETTY Facility: [facility]:[place] : 1975 Planned Disposition: Home with Home Health Anticipated Discharge Date: 02/10/19 Discharge Date: 02/10/2019 Expected LOS: 8 Initial Reviewer: [email or web address] Initial Review Date: 02/03/2019 Generated: 02/10/19 4:42 pm Comments DCP- Discharge Planning Updated by [email or web address]: Martha Powell on 02/10/19 12:[address] Patient for discharge today. Discharge IMM served. copy given to the patient. Signed hard copy to the chart. Patient stated she had been on service w/ [facility] prior to admission. Telephone call to [facility] in [place]. Patient was a nonadmit two previous referrals per her request. Will call her to verify if she does or does not want home health. DCP- Discharge Planning Updated by [email or web address]: Martha Powell on 02/03/19 4:[address] CM MET WITH THE PATIENT FOR INITIAL ASSESSMENT AND DISCHARGE PLANNING. VERBAL CONSENT GIVEN TO PROCEED W/ ASSESSMENT .EDUCATED PATIENT ON ROLE OF CM AND DISCUSSED AVAILABLE SERVICES AT DISCHARGE. PATIENT IS ALERT AND ORIENTED. SHE STATES SHE HAS [facility] FOR SN SERVICES PRESENTLY. CM TO VERIFY STATUS WITH [employer]. SHE WAS IN [facility] FOR 5 MONTHS S/P SURGERY TO LOSE WEIGHT IN 2017. PATIENT STATES SHE WAS SEEN IN THE ER AT [facility] AND TREATED W/ 2 LITERS OF IVF 24 HRS AGO. SHE VISITED HER PCP, DR ONEIL, DIRECTED. SHE WAS ADMITTED TO [facility] FROM DR ONEIL'S OFFICE. PHARMACY- [facility] IN [place]. DME- WALKER, WHEELCHAIR, SHOWER BENCH, SAFETY RAILS IN SHOWER SURGEON- DR STEELE SHE WILL HAVE TRANSPORTATION TO HOME. CM WILL FOLLOW TO ASSIST W/ POST DISCHARGE NEEDS. DCPIA - Discharge Planning Initial Assessment Updated by [email or web address]: Martha Powell on 02/03/19 5:20 pm * Is the patient Alert and Oriented? Yes * How many steps to enter\exit or inside your home? RAMP * PCP DR ONEIL * [facility] * Preadmission Environment Home with Family * Partial ADLs (Assistance needed) Ambulation Transfers * Equipment Tub Bench Walker Wheelchair * Other Equipment N/A * List name and contact numbers for known caregivers / representatives who currently or will assist patient after discharge: LATANYA PETTY- SPOUSE- [phone] * Verbal permission to speak to the caregivers and representatives has been obtained from the patient. No * Community resources currently utilized Home Health * Please name any agencies selected above. [facility] * Additional services required to return to the preadmission environment? No * Can the patient safely return to the preadmission environment? Yes * Has this patient been hospitalized within the prior 30 days at any hospital? Yes Coverage Notice Reviewer: [id number] - Martha Powell Notice Issued Date-Time: 02/10/2019 13:07 Notice Type: IM Discharge Notice Notice Delivered To: Patient Relationship to Patient: Self Commercial Litigation Associate Name: Delivery Method: HAND - Hand Delivered Anita Days: Prior Verbal Notification: Recipient Understood Notice: Yes Recipient Signature: Yes Med Rec Note Co-signed by Attending: Coverage Notice Comment: DISCHARGE IMM SERVED. PATIENT HAD NO QUESTIONS OR CONCERNS. SIGNATURE OBTAINED. COPY TO THE PATIENT. SIGNED COPY TO THE HARD COVER CHART. Last DP export: 02/10/19 12:25 p Patient Name: RAFAEL PETTY Page [id number] at 1542 All edits/amendments must be made on the electronic document DICTATION DATE: 02/10/19 1542 PRODUCE ASSOCIATE: MELANY 02/10/19 1542 RPT#: [id number] DC DATE:02/10/19 STATUS: DIS IN [facility] [address] [place] [address] END OF REPORT
--- NOTE | 2019-02-10 15:51 | MORECARE ---
CASE MANAGEMENT DISCHARGE SUMMARY PATIENT: RAFAEL PETTY MARICEL UNIT: [id number] ADM DATE: 02/02/19 AGE: 43 : 75 SEX: F ROOM/BED: D.1204 AUTHOR: LEVAR,DOC PHYSICIAN: REFERRING PHYSICIAN: SHADE VENEGAS MD DATE OF SERVICE: 02/10/19 Discharge Plan Patient Name: RAFAEL PETTY Facility: [facility]:[place] : 1975 Planned Disposition: Home with Home Health Anticipated Discharge Date: 02/10/19 Discharge Date: 02/10/2019 Expected LOS: 8 Initial Reviewer: [id number] Initial Review Date: 02/03/2019 Generated: 02/10/19 4:50 pm Comments DCP- Discharge Planning Updated by [email or web address]: Martha Powell on 02/10/19 2:[address] 1532 TC TO [facility]. ADVISED LUIS MANUEL THE PATIENT DECLINED HOME HEALTH DCP- Discharge Planning Updated by [email or web address]: Martha Powell on 02/10/19 2:[address] CM TELEPHONED THE PATIENT. SHE DECLINES HOME HEALTH . STATES HER CHILDREN , 2 TEENAGERS ARE HOME AND CAN HELP HER. SHE STATES SHE CAN CALL HER DOCTOR IF SHE CHANGES HER MIND. DCP- Discharge Planning Updated by [email or web address]: Martha Powell on 02/10/19 12:[address] Patient for discharge today. Discharge IMM served. copy given to the patient. Signed hard copy to the chart. Patient stated she had been on service w/ [employer] prior to admission. Telephone call to [facility] in [place]. Patient was a nonadmit two previous referrals per her request. Will call her to verify if she does or does not want home health. DCP- Discharge Planning Updated by [email or web address]: Martha Powell on 02/03/19 4:[address] CM MET WITH THE PATIENT FOR INITIAL ASSESSMENT AND DISCHARGE PLANNING. VERBAL CONSENT GIVEN TO PROCEED W/ ASSESSMENT .EDUCATED PATIENT ON ROLE OF CM AND DISCUSSED AVAILABLE SERVICES AT DISCHARGE. PATIENT IS ALERT AND ORIENTED. SHE STATES SHE HAS [employer] FOR SN SERVICES PRESENTLY. CM TO VERIFY STATUS WITH [employer]. SHE WAS IN [facility] [place] FOR 5 MONTHS S/P SURGERY TO LOSE WEIGHT IN 2017. PATIENT STATES SHE WAS SEEN IN THE ER AT [facility] AND TREATED W/ 2 LITERS OF IVF 24 HRS AGO. SHE VISITED HER PCP, DR ONEIL, DIRECTED. SHE WAS ADMITTED TO [facility] FROM DR ONEIL'S OFFICE. PHARMACY- [facility] IN [place]. DME- WALKER, WHEELCHAIR, SHOWER BENCH, SAFETY RAILS IN SHOWER SURGEON- DR STEELE SHE WILL HAVE TRANSPORTATION TO HOME. CM WILL FOLLOW TO ASSIST W/ POST DISCHARGE NEEDS. DCPIA - Discharge Planning Initial Assessment Updated by [email or web address]: Martha Powell on 02/03/19 5:20 pm * Is the patient Alert and Oriented? Yes * How many steps to enter\exit or inside your home? RAMP * PCP DR ONEIL * Pharmacy [facility]- [place] * Preadmission Environment Home with Family * Partial ADLs (Assistance needed) Ambulation Transfers * Equipment Tub Bench Walker Wheelchair * Other Equipment N/A * List name and contact numbers for known caregivers / representatives who currently or will assist patient after discharge: LATANYA PETTY- [facility]- [phone] * Verbal permission to speak to the caregivers and representatives has been obtained from the patient. No * Community resources currently utilized Home Health * Please name any agencies selected above. [facility] * Additional services required to return to the preadmission environment? No * Can the patient safely return to the preadmission environment? Yes * Has this patient been hospitalized within the prior 30 days at any hospital? Yes Coverage Notice Reviewer: [id number] - Martha Powell Notice Issued Date-Time: 02/10/2019 13:07 Notice Type: IM Discharge Notice Notice Delivered To: Patient Relationship to Patient: Self Auto Air Conditioning Apprentice Name: Delivery Method: HAND - Hand Delivered Anita Days: Prior Verbal Notification: Recipient Understood Notice: Yes Recipient Signature: Yes Med Rec Note Co-signed by Attending: Coverage Notice Comment: DISCHARGE IMM SERVED. PATIENT HAD NO QUESTIONS OR CONCERNS. SIGNATURE OBTAINED. COPY TO THE PATIENT. SIGNED COPY TO THE HARD COVER CHART. Last DP export: 02/10/19 2:42 p Patient Name: RAFAEL PETTY Page [id number] at 1551 All edits/amendments must be made on the electronic document DICTATION DATE: 02/10/19 1550 SLASH TRIMMER: MELANY 02/10/19 1550 RPT#: [id number] DC DATE:02/10/19 STATUS: [facility] [address] [place] [address] END OF REPORT
== END 2019-02-10 13:07 | disposition home or self-care (01) | DRG 380 ==
LOC: D.M3 15:48
PROVIDERS: Emergency Medicine; Family Medicine; ADMIT Internal Medicine Nephrology; ATTEND Internal Medicine Nephrology
PROC: 3E0G8GC Introduction of Other Therapeutic Substance into Upper GI, Via Natural or Artificial Opening Endoscopic (ICD-10-PCS; principal; 2019-02-10)
PROC: 0D768ZZ Dilation of Stomach, Via Natural or Artificial Opening Endoscopic (ICD-10-PCS; 2019-02-10)
DX: K31.1 Adult hypertrophic pyloric stenosis (principal); E43 Unspecified severe protein-calorie malnutrition; N17.9 Acute kidney failure, unspecified; E51.2 Wernicke's encephalopathy; E86.0 Dehydration; E87.6 Hypokalemia; G35 Multiple sclerosis; E83.42 Hypomagnesemia; J44.9 Chronic obstructive pulmonary disease, unspecified; E11.65 Type 2 diabetes mellitus with hyperglycemia; K21.9 Gastro-esophageal reflux disease without esophagitis; M25.551 Pain in right hip; W18.30XA Fall on same level, unspecified, initial encounter; Y92.231 Patient bathroom in hospital as the place of occurrence of the external cause; Z68.21 Body mass index [BMI] 21.0-21.9, adult

== ENCOUNTER 2019-02-12 11:34 | Emergency (ER) | payer MEDICARE ==
[2019-02-12 11:42] VITALS: BMI 19.2
[2019-02-12] MEDS ORDERED: VOLTAREN75 MG PO (13:29)
[2019-02-12 13:55] VITALS: BP 152/104
== END 2019-02-12 13:56 | disposition home or self-care (01) ==
LOC: D.ER 11:34
DX: M54.2 Cervicalgia (principal); R51 Headache; R11.10 Vomiting, unspecified; Z91.81 History of falling

== ENCOUNTER 2019-02-16 14:08 | Inpatient (IN) | payer MEDICARE ==
[~2019-02-16] VITALS: Ht 162.6 cm; Wt 50.8 kg
[~2019-02-16 14:08] MED LIST changes: +VOLTAREN75 MG PO
[2019-02-16 14:50] VITALS: BP 148/87; BMI 19.2
[2019-02-16 14:53] LABS: BASOPHILS 0.6 % (0-2); EOSINOPHILS 0.7 % (0-7); HEMATOCRIT 38.5 % (36.0-48.0); HEMOGLOBIN 12.8 g/dL (12-16); IMMATURE GRANULOCYTES 0.2 % (0-5); LYMPHOCYTES 33.8 % (15-50); MCH 28.4 pg (26.0-34.0); MCHC 33.2 g/dL (31.0-37.0); MCV 85.4 fL (80.0-100.0); MEAN PLATELET VOLUME 10.2 fL (7.4-10.4); MONOCYTES 4.3 % (2-11); NEUTROPHILS 60.4 % (40-80); RBC 4.51 10x6/uL (4.00-5.40); RDW 12.9 % (11.5-14.5); WBC 5.4 10x3/uL (4.8-10.8)
[2019-02-16 14:54] LABS: PLATELET COUNT 299 10x3/uL (130-400)
[2019-02-16 15:50] LABS: ALBUMIN 3.2 g/dL (3.4-5.0); ANION GAP 20.7 mmol/L (8-16); BILIRUBIN - TOTAL 0.49 mg/dL (0.2-1.3); CALCIUM 9.3 mg/dL (8.5-10.1); CARBON DIOXIDE 23.5 mmol/L (21.0-32.0); CREATININE - SERUM 0.9 mg/dL (0.6-1.3); POTASSIUM - SERUM 4.2 mmol/L (3.5-5.1); PROTEIN - SERUM 6.3 g/dL (6.4-8.2)
[2019-02-16 20:00] VITALS: BP 149/94
[2019-02-17] VITALS: BP 133/87
[2019-02-17 04:00] VITALS: BP 140/85
[2019-02-17 09:39] VITALS: BP 165/89
[2019-02-17 13:20] VITALS: Ht 162.6 cm; Wt 50.8 kg
[2019-02-17 13:32] VITALS: BP 171/96
[2019-02-17 17:07] VITALS: BP 117/77
[2019-02-17 19:58] VITALS: BP 125/85
[2019-02-18] VITALS: BP 123/77
[2019-02-18 04:00] VITALS: BP 144/92
[2019-02-18 05:28] LABS: BASOPHILS 0.3 % (0-2); EOSINOPHILS 1.5 % (0-7); LYMPHOCYTES 50.6 % (15-50); MCHC 32.3 g/dL (31.0-37.0); MCV 86.8 fL (80.0-100.0); MEAN PLATELET VOLUME 10.5 fL (7.4-10.4); NEUTROPHILS 40.6 % (40-80); RDW 13.1 % (11.5-14.5)
[2019-02-18 05:35] LABS: PLATELET COUNT 199 10x3/uL (130-400); RBC 3.57 10x6/uL (4.00-5.40); WBC 3.3 10x3/uL (4.8-10.8)
[2019-02-18 05:52] LABS: CALCIUM 8.5 mg/dL (8.5-10.1); CHLORIDE - SERUM 106 mmol/L (98-107); CREATININE - SERUM 0.7 mg/dL (0.6-1.3); POTASSIUM - SERUM 3.9 mmol/L (3.5-5.1); SODIUM 142 mmol/L (136-145); UREA NITROGEN 10 mg/dL (7-18); eGFR NON AFRICAN AMERICAN > 90 mL/min (90-120)
[2019-02-18 05:53] LABS: CALC OSMOLALITY 282 mosm/kg (275-300); CARBON DIOXIDE 30.1 mmol/L (21.0-32.0); GLUCOSE 125 mg/dL (74-106)
[2019-02-18 08:30] VITALS: BP 122/72
[2019-02-18 12:16] VITALS: BP 149/109
[2019-02-18 16:55] VITALS: BP 120/83
[2019-02-18 20:00] VITALS: BP 132/92
[2019-02-19] VITALS: BP 128/75
[2019-02-19 04:00] VITALS: BP 151/97
[2019-02-19 04:29] LABS: APPEARANCE CLEAR (CLEAR); BILIRUBIN NEGATIVE (NEGATIVE); COLOR YELLOW (YELLOW); GLUCOSE NEGATIVE (NEGATIVE); KETONE NEGATIVE (NEGATIVE); NITRITE NEGATIVE (NEGATIVE); PROTEIN NEGATIVE (NEGATIVE); UROBILINOGEN NORMAL (NORMAL)
[2019-02-19 04:36] LABS: CALC OSMOLALITY 278 mosm/kg (275-300); CALCIUM 8.3 mg/dL (8.5-10.1); CARBON DIOXIDE 30.9 mmol/L (21.0-32.0); CHLORIDE - SERUM 108 mmol/L (98-107); GLUCOSE 82 mg/dL (74-106); POTASSIUM - SERUM 4.4 mmol/L (3.5-5.1); SODIUM 141 mmol/L (136-145); UREA NITROGEN 10 mg/dL (7-18)
[2019-02-19 04:44] LABS: CREATININE - SERUM 0.5 mg/dL (0.6-1.3); eGFR NON AFRICAN AMERICAN > 90 mL/min (90-120)
[2019-02-19 04:55] LABS: HEMATOCRIT 28.7 % (36.0-48.0); HEMOGLOBIN 9.2 g/dL (12-16); MCH 28.3 pg (26.0-34.0); MCHC 32.1 g/dL (31.0-37.0); MCV 88.3 fL (80.0-100.0); MEAN PLATELET VOLUME 10.5 fL (7.4-10.4); PLATELET COUNT 175 10x3/uL (130-400); RBC 3.25 10x6/uL (4.00-5.40); RDW 13.5 % (11.5-14.5); WBC 2.9 10x3/uL (4.8-10.8)
[2019-02-19 05:19] LABS: BASOPHILS 1 % (0-2); EOSINOPHILS 2 % (0-7); LYMPHOCYTES 42 % (15-50); MONOCYTES 10 % (2-11); NEUTROPHILS 45 % (40-80); PLATELET ESTIMATE NORMAL
[2019-02-19 09:25] VITALS: BP 134/93
[2019-02-19 13:00] VITALS: BP 165/106
[2019-02-19 18:20] VITALS: BP 126/89
[2019-02-19 20:00] VITALS: BP 136/92
[2019-02-20] VITALS (7 sets, daily range): BP systolic 136–172; BP diastolic 94–106
[2019-02-20 07:09] LABS: BASOPHILS 0.4 % (0-2); EOSINOPHILS 2.3 % (0-7); HEMATOCRIT 30.1 % (36.0-48.0); HEMOGLOBIN 9.4 g/dL (12-16); MCH 27.8 pg (26.0-34.0); MCHC 31.2 g/dL (31.0-37.0); MCV 89.1 fL (80.0-100.0); MEAN PLATELET VOLUME 11.2 fL (7.4-10.4); MONOCYTES 6.6 % (2-11); NEUTROPHILS 46.7 % (40-80); PLATELET COUNT 187 10x3/uL (130-400); RBC 3.38 10x6/uL (4.00-5.40); RDW 13.8 % (11.5-14.5); WBC 2.6 10x3/uL (4.8-10.8)
[2019-02-20 07:38] LABS: CALCIUM 8.9 mg/dL (8.5-10.1); CARBON DIOXIDE 29.8 mmol/L (21.0-32.0); CHLORIDE - SERUM 105 mmol/L (98-107); CREATININE - SERUM 0.5 mg/dL (0.6-1.3); GLUCOSE 73 mg/dL (74-106); SODIUM 138 mmol/L (136-145); eGFR NON AFRICAN AMERICAN > 90 mL/min (90-120)
[2019-02-20 07:43] LABS: CALC OSMOLALITY 275 mosm/kg (275-300); POTASSIUM - SERUM 5.2 mmol/L (3.5-5.1); UREA NITROGEN 15 mg/dL (7-18)
--- NOTE | 2019-02-20 18:14 | OP ---
PATIENT NAME: RAFAEL PETTY MEDICAL RECORD: [id number] :75 LOCATION:[id number] ADMISSION DATE:02/16/19 SURGEON: COLLEEN STEELE MD DATE OF OPERATION: 02/20/2019 SURGEON: Colleen Steele MD (JJ) PREOPERATIVE DIAGNOSES: Dysphagia, severe protein-calorie malnutrition, gastric sleeve stricture, multiple sclerosis, intractable nausea and vomiting. POSTOPERATIVE DIAGNOSES: Dysphagia, severe protein-calorie malnutrition, gastric sleeve stricture, multiple sclerosis, intractable nausea and vomiting. PROCEDURES PERFORMED: 1. Laparoscopic gastric seromyotomy. 2. EGD. 3. Laparoscopic placement of jejunal feeding tube. ANESTHESIA: General. COMPLICATIONS: None. SPECIMENS: None. Case was clean/contaminated. OPERATIVE COURSE: After consent was obtained, the patient was taken to the operating room and placed in supine position on the operating table. Next, general anesthesia was given via endotracheal intubation after time-out was performed to confirm the correct patient and procedure. Local anesthetic was injected just above the umbilicus. A stab incision was made with #11 blade scalpel. Using an 11-mm bladeless optical trocar, the abdomen was entered under direct laparoscopic vision. Adequate pneumoperitoneum was achieved. The abdominal cavity was inspected. There was no evidence of bowel injury and no evidence of bleeding. At this time, additional trocars were placed; 12- and 5-mm trocars in the right lateral quadrant, 5-mm trocar in the left lateral quadrant, and Emmett retractor in the subxiphoid position. The patient was then placed in the steep reverse Trendelenburg position. The left lobe of liver was elevated, exposing the gastroesophageal junction. Careful and meticulous laparoscopic lysis of adhesions was performed on the proximal stomach. The diaphragmatic hiatus was dissected. The stomach was mobilized anteriorly and posteriorly. Next, I inserted the gastroscope through the biteblock and into the posterior oropharynx under direct laparoscopic vision. It was passed posterior to the epiglottis into the esophagus. The scope was advanced into the stomach and advanced to the level of the stricture, which appeared in the mid portion of the gastric sleeve. The stomach was insufflated again to confirm the exact positioning of the stricture. This was a very narrow based suture. At this time, it was decided to perform a seromyotomy as opposed to a gastric bypass. The seromyotomy was performed using combination of electrocautery and Harmonic scalpel. Once the myotomy was completed, the stricture resolved. There was a small mucosal defect. At this time, the mucosal defect was closed with a 3-0 Stratafix suture. Evicel was applied. A Orville patch was then performed using OPERATIVE REPORT [id number] RAFAEL PETTY MARICEL a tongue of greater omentum. It was secured in place on both sides using a single running 3-0 Stratafix suture. A leak test was then performed, which showed no evidence of leak. The stomach was reinsufflated and water was instilled into the abdomen. There was no evidence of leak. At this time, the stomach was desufflated. An NG tube was passed under direct endoscopic vision and placed into the stomach. The endoscope was removed. After scrubbing back into the case, I performed laparoscopic placement of a jejunostomy tube to the previous jejunostomy tube site. The jejunum was densely adherent to the abdominal wall. A skin incision was made to the previous jejunostomy site. Under direct laparoscopic vision, the J-tube was advanced through the skin incision into the lumen of the jejunum and advanced under direct laparoscopic vision. The balloon was inflated and it was secured in place. The abdomen was copiously irrigated and suctioned. There was no evidence of bowel injury and no evidence of bleeding. At this time, the 12- and 11-mm trocar sites were closed with Vincenzo-Maura suture passer with a #0 Vicryl suture under direct laparoscopic vision. Remaining instruments were removed. The abdomen was desufflated. Remaining trocars were removed. Emmett retractor was removed. Skin incision was closed with 4-0 Monocryl, Mastisol, and Steri-Strips. At the end of the case, all needle and instrument counts were correct. No complications occurred. The patient was extubated and transferred to the PACU in stable condition. TRANSINT:[id number] Voice Confirmation ID: [id number] DOCUMENT ID: [id number] COLLEEN STEELE MD at 1814 CC: [id number] DICTATION DATE: 02/20/19 1412 SAILBOAT CAPTAIN: 02/20/19 1537 [facility] [place] [address]
[2019-02-21 04:00] VITALS: BP 150/110
[2019-02-21 05:26] LABS: BASOPHILS 0.1 % (0-2); EOSINOPHILS 0 % (0-7); HEMOGLOBIN 10.3 g/dL (12-16); IMMATURE GRANULOCYTES 0.1 % (0-5); LYMPHOCYTES 8.8 % (15-50); MCH 27.4 pg (26.0-34.0); MCHC 31.2 g/dL (31.0-37.0); MCV 87.8 fL (80.0-100.0); MEAN PLATELET VOLUME 11.2 fL (7.4-10.4); MONOCYTES 5.6 % (2-11); NEUTROPHILS 85.4 % (40-80); RBC 3.76 10x6/uL (4.00-5.40); RDW 13.8 % (11.5-14.5)
[2019-02-21 05:45] LABS: PLATELET COUNT 236 10x3/uL (130-400); WBC 10.1 10x3/uL (4.8-10.8)
[2019-02-21 05:49] LABS: CALCIUM 8.9 mg/dL (8.5-10.1); CARBON DIOXIDE 27.5 mmol/L (21.0-32.0); CHLORIDE - SERUM 103 mmol/L (98-107); POTASSIUM - SERUM 5.2 mmol/L (3.5-5.1); SODIUM 138 mmol/L (136-145)
[2019-02-21 05:54] LABS: CALC OSMOLALITY 278 mosm/kg (275-300); CREATININE - SERUM 0.7 mg/dL (0.6-1.3); GLUCOSE 113 mg/dL (74-106); UREA NITROGEN 19 mg/dL (7-18); eGFR NON AFRICAN AMERICAN > 90 mL/min (90-120)
[2019-02-21 08:23] VITALS: BP 145/102
[2019-02-21 11:58] VITALS: BP 145/102
--- NOTE | 2019-02-21 13:38 | MORECARE ---
CASE MANAGEMENT DISCHARGE SUMMARY PATIENT: RAFAEL PETTY MARICEL UNIT: [id number] ADM DATE: 02/16/19 AGE: 43 : 75 SEX: F ROOM/BED: D.2225 AUTHOR: ROBERTO CRISTOBAL PHYSICIAN: REFERRING PHYSICIAN: COLLEEN STEELE MD DATE OF SERVICE: 02/21/19 Discharge Plan Patient Name: RAFAEL PETTY Facility: [facility]:[place] : 1975 Planned Disposition: Anticipated Discharge Date: Discharge Date: Expected LOS: Initial Reviewer: [email or web address] Initial Review Date: 02/21/2019 Generated: 02/21/19 2:38 pm Patient Name: RAFAEL PETTY Page 65386 at 1338 All edits/amendments must be made on the electronic document DICTATION DATE: 02/21/191337 SLITTER SERVICE AND SETTER: MELANY 02/21/19 1338 RPT#: [id number] DC DATE: STATUS: ADM IN [facility] [address] [place] [address] END OF REPORT
--- NOTE | 2019-02-21 13:45 | MORECARE ---
CASE MANAGEMENT DISCHARGE SUMMARY PATIENT: RAFAEL BRANNON MARICEL UNIT: [id number] ADM DATE: 02/16/19 AGE: 43 : 75 SEX: F ROOM/BED: D.2225 AUTHOR: ROBERTO CRISTOBAL PHYSICIAN: REFERRING PHYSICIAN: COLLEEN STEELE MD DATE OF SERVICE: 02/21/19 Discharge Plan Patient Name: RAFAEL BRANNON Facility: [facility]:[place] : 1975 Planned Disposition: Anticipated Discharge Date: Discharge Date: Expected LOS: Initial Reviewer: [email or web address] Initial Review Date: 02/21/2019 Generated: 02/21/19 2:45 pm DCPIA - Discharge Planning Initial Assessment Updated by [email or web address]: Jennifer Bell on 02/21/19 1:41 pm * Is the patient Alert and Oriented? Yes * How many steps to enter\exit or inside your home? Ramp * PCP [facility] in [place] * Pharmacy [facility] [place] * Preadmission Environment Home with Family * ADLs Partial Dependent * Partial ADLs (Assistance needed) Ambulation * Equipment Elevated Toliet Seat Other Shower Chair Tub Bench Walker Wheelchair * Other Equipment Safety rails in shower * List name and contact numbers for known caregivers / representatives who currently or will assist patient after discharge: Jaylen Brannon - spouse - [phone] * Verbal permission to speak to the caregivers and representatives has been obtained from the patient. Yes * Community resources currently utilized None * Additional services required to return to the preadmission environment? Yes * Can the patient safely return to the preadmission environment? Yes * Has this patient been hospitalized within the prior 30 days at any hospital? Yes Last DP export: 02/21/19 12:38 p Patient Name: RAFAEL BRANNON Page 35150 at 1345 All edits/amendments must be made on the electronic document DICTATION DATE: 02/21/19 1345 INDEPENDENT TRADER: MELANY 02/21/19 1345 RPT#: [id number] DC DATE: STATUS: ADM IN [facility] [address] [place] [address] END OF REPORT
--- NOTE | 2019-02-21 13:52 | MORECARE ---
CASE MANAGEMENT DISCHARGE SUMMARY PATIENT: RAFAEL BRANNON MARICEL UNIT: [id number] ADM DATE: 02/16/19 AGE: 43 : 75 SEX: F ROOM/BED: D.2225 AUTHOR: LEVARDOC PHYSICIAN: REFERRING PHYSICIAN: COLLEEN STEELE MD DATE OF SERVICE: 02/21/19 Discharge Plan Patient Name: RAFAEL BRANNON Facility: [facility]:[place] : 1975 Planned Disposition: Anticipated Discharge Date: Discharge Date: Expected LOS: Initial Reviewer: [email or web address] Initial Review Date: 02/21/2019 Generated: 02/21/19 2:52 pm Comments DCP- Discharge Planning Updated by [id number]: Jennifer Bell on 02/21/19 12:[address] Patient Name: RAFAEL BRANNON Admission Status: Elective Accout number: [id number] Admission Date: 02-16-2019 : 1975 Admission Diagnosis:DYSPHAGIA, UNSPECIFIED Attending: COLLEEN STEELE Current LOS: 5 Anticipated DC Date: Planned Disposition: Primary Insurance: MEDICARE A & B Discharge Planning Comments: CM met with patient to discuss discharge planning, she is alone in the room. She states she lives with her and her 16 and 19 year old children. States that she is independent at home except she does use a walker or wheelchair to aide in ambulation. States her 2 children assist her as needed. I discussed the availability of rehab, SNF, home health and DME needed for tube feeds. She states that she is unsure what she needs right now until she sees "how her MS is doing." States she may need inpatient rehab. Declines home health if she goes home. States "my kids can help me." She is unsure who delivered her feeding supplies before, but will check with her family and let me know. CM will continue to follow and assist with discharge planning/needs. Metal Wire Coating Operator: Jennifer Bell DCPIA - Discharge Planning Initial Assessment Updated by [email or web address]: Jennifer Bell on 02/21/19 1:41 pm * Is the patient Alert and Oriented? Yes * How many steps to enter\\exit or inside your home? Ramp * PCP [facility] in [place] * Pharmacy [facility] in [place] * Preadmission Environment Home with Family * ADLs Partial Dependent * Partial ADLs (Assistance needed) Ambulation * Equipment Elevated Tol[place] Seat Other Shower Chair Tub Bench Walker Wheelchair * Other Equipment Safety rails in shower * List name and contact numbers for known caregivers / representatives who currently or will assist patient after discharge: Jaylen Brannon - [facility] - [phone] * Verbal permission to speak to the caregivers and representatives has been obtained from the patient. Yes * Community resources currently utilized None * Additional services required to return to the preadmission environment? Yes * Can the patient safely return to the preadmission environment? Yes * Has this patient been hospitalized within the prior 30 days at any hospital? Yes Last DP export: 02/21/19 12:45 p Patient Name: RAFAEL BRANNON Page 10712 at 1352 All edits/amendments must be made on the electronic document DICTATION DATE: 02/21/19 1352 CONCRETE JOURNEYMAN: MELANY 02/21/19 1352 RPT#: [id number] DC DATE: STATUS: ADM IN [facility] [address] [place] [address] END OF REPORT
[2019-02-21 16:43] VITALS: BP 126/86
[2019-02-21 20:00] VITALS: BP 141/88
[2019-02-22] VITALS: BP 110/75
[2019-02-22 04:00] VITALS: BP 143/92
[2019-02-22 08:27] LABS: CARBON DIOXIDE 30.7 mmol/L (21.0-32.0); CHLORIDE - SERUM 102 mmol/L (98-107); GLUCOSE 98 mg/dL (74-106); POTASSIUM - SERUM 4.5 mmol/L (3.5-5.1); SODIUM 139 mmol/L (136-145)
[2019-02-22 08:28] LABS: CALC OSMOLALITY 278 mosm/kg (275-300); CREATININE - SERUM 0.5 mg/dL (0.6-1.3); UREA NITROGEN 14 mg/dL (7-18); eGFR NON AFRICAN AMERICAN > 90 mL/min (90-120)
[2019-02-22 08:28] LABS: BASOPHILS 0.3 % (0-2); EOSINOPHILS 0.8 % (0-7); HEMATOCRIT 39.1 % (36.0-48.0); HEMOGLOBIN 12.4 g/dL (12-16); IMMATURE GRANULOCYTES 0.3 % (0-5); LYMPHOCYTES 18.1 % (15-50); MCH 27.9 pg (26.0-34.0); MCHC 31.7 g/dL (31.0-37.0); MCV 88.1 fL (80.0-100.0); MEAN PLATELET VOLUME 11.3 fL (7.4-10.4); MONOCYTES 6.5 % (2-11); PLATELET COUNT 117 10x3/uL (130-400); RBC 4.44 10x6/uL (4.00-5.40); RDW 14.4 % (11.5-14.5); WBC 3.7 10x3/uL (4.8-10.8)
[2019-02-22 09:44] VITALS: BP 136/93
[2019-02-22 12:00] VITALS: BP 133/89
[2019-02-22 18:35] VITALS: BP 138/92
[2019-02-22 20:00] VITALS: BP 146/97
[2019-02-23] VITALS: BP 139/94
[2019-02-23 06:59] LABS: ALKALINE PHOSPHATASE 62 U/L (46-116); ALT (SGPT) 18 U/L (10-68); BILIRUBIN - TOTAL 0.17 mg/dL (0.2-1.3); CALC OSMOLALITY 262 mosm/kg (275-300); CALCIUM 8.4 mg/dL (8.5-10.1); CARBON DIOXIDE 28.1 mmol/L (21.0-32.0); CHLORIDE - SERUM 101 mmol/L (98-107); CREATININE - SERUM 0.4 mg/dL (0.6-1.3); GLUCOSE 95 mg/dL (74-106); PROTEIN - SERUM 5.2 g/dL (6.4-8.2); SODIUM 131 mmol/L (136-145); UREA NITROGEN 12 mg/dL (7-18); eGFR NON AFRICAN AMERICAN > 90 mL/min (90-120)
[2019-02-23 07:07] LABS: POTASSIUM - SERUM 5.7 mmol/L (3.5-5.1)
[2019-02-23 09:17] LABS: FOLATE (FOLIC ACID) - SERUM 6.3 ng/mL (>3.0)
[2019-02-23 09:38] VITALS: BP 149/94
[2019-02-23 13:21] LABS: BASOPHILS 0.3 % (0-2); EOSINOPHILS 0.8 % (0-7); IMMATURE GRANULOCYTES 0.3 % (0-5); LYMPHOCYTES 17.5 % (15-50); MCH 27.8 pg (26.0-34.0); MCHC 31.3 g/dL (31.0-37.0); MONOCYTES 7.3 % (2-11); NEUTROPHILS 73.8 % (40-80); RDW 13.8 % (11.5-14.5)
[2019-02-23 13:27] LABS: HEMATOCRIT 30.7 % (36.0-48.0); HEMOGLOBIN 9.6 g/dL (12-16); PLATELET COUNT 156 10x3/uL (130-400); RBC 3.45 10x6/uL (4.00-5.40)
[2019-02-23 14:11] VITALS: BP 150/97
--- NOTE | 2019-02-23 15:16 | MORECARE ---
CASE MANAGEMENT DISCHARGE SUMMARY PATIENT: RAFAEL BRANNON MARICEL UNIT: [id number] ADM DATE: 02/16/19 AGE: 43 : 75 SEX: F ROOM/BED: D.2225 AUTHOR: LEVARDOC PHYSICIAN: REFERRING PHYSICIAN: COLLEEN STEELE MD DATE OF SERVICE: 02/23/19 Discharge Plan Patient Name: RAFAEL BRANNON Facility: [facility]:[place] : 1975 Planned Disposition: Anticipated Discharge Date: Discharge Date: Expected LOS: Initial Reviewer: [email or web address] Initial Review Date: 02/21/2019 Generated: 02/23/19 4:15 pm Comments DCP- Discharge Planning Updated by [id number]: Jennifer Bell on 02/23/19 2:[address] Spoke with patient regarding discharge planning. She states she would like to go to inpatient rehab here for about a week for strengthening prior to discharging home. States if she is not approved to go to inpatient rehab she would like [facility] when discharging home. She does not have a preference of where to get her tube feeding supplies from. She cannot remember where she has gotten them before. Medicare will pay for supplies if it is her only source of nutrition. CM will continue to follow and assist with discharge planning/needs. DCP- Discharge Planning Updated by [id number]: Jennifer Bell on 02/21/19 12:[address] Patient Name: RAFAEL BRANNON Admission Status: Elective Accout number: [id number] Admission Date: 02-16-2019 : 1975 Admission Diagnosis:DYSPHAGIA, UNSPECIFIED Attending: COLLEEN STEELE Current LOS: 5 Anticipated DC Date: Planned Disposition: Primary Insurance: MEDICARE A & B Discharge Planning Comments: CM met with patient to discuss discharge planning, she is alone in the room. She states she lives with her and her 16 and 19 year old children. States that she is independent at home except she does use a walker or wheelchair to aide in ambulation. States her 2 children assist her as needed. I discussed the availability of rehab, SNF, home health and DME needed for tube feeds. She states that she is unsure what she needs right now until she sees "how her MS is doing." States she may need inpatient rehab. Declines home health if she goes home. States "my kids can help me." She is unsure who delivered her feeding supplies before, but will check with her family and let me know. CM will continue to follow and assist with discharge planning/needs. Sports Attorney: Jennifer Ray DCPIA - Discharge Planning Initial Assessment Updated by [email or web address]: Jennifer Ray on 02/21/19 1:41 pm * Is the patient Alert and Oriented? Yes * How many steps to enter\\exit or inside your home? Ramp * PCP [facility] in [place] * Pharmacy [facility] in [place] * Preadmission Environment Home with Family * ADLs Partial Dependent * Partial ADLs (Assistance needed) Ambulation * Equipment Elevated [place] Seat Other Shower Chair Tub Bench Walker Wheelchair * Other Equipment Safety rails in shower * List name and contact numbers for known caregivers / representatives who currently or will assist patient after discharge: Jaylen Brannon - [facility] - [phone] * Verbal permission to speak to the caregivers and representatives has been obtained from the patient. Yes * Community resources currently utilized None * Additional services required to return to the preadmission environment? Yes * Can the patient safely return to the preadmission environment? Yes * Has this patient been hospitalized within the prior 30 days at any hospital? Yes Coverage Notice Reviewer: [id number] - Jennifer Bell Notice Issued Date-Time: 02/23/2019 15:02 Notice Type: Patient Choice Letter Notice Delivered To: Patient Relationship to Patient: Self Pulmonary Physical Therapist Name: Delivery Method: HAND - Hand Delivered Anita Days: Prior Verbal Notification: Recipient Understood Notice: Yes Recipient Signature: Yes Med Rec Note Co-signed by Attending: Coverage Notice Comment: [facility] Last DP export: 02/21/19 12:52 p Patient Name: RAFAEL BRANNON Page [phone] at 1516 All edits/amendments must be made on the electronic document DICTATION DATE: 02/23/191514 FORMING MACHINE TENDER: MELANY 02/23/191514 RPT#: [id number] DC DATE: STATUS: ADM IN [facility] [address] [place] [address] END OF REPORT
[2019-02-23 17:56] VITALS: BP 144/96
[2019-02-23 21:08] VITALS: BP 145/97
[2019-02-24 01:39] VITALS: BP 145/101
[2019-02-24 04:47] LABS: BASOPHILS 0.3 % (0-2); EOSINOPHILS 1.9 % (0-7); HEMATOCRIT 27.3 % (36.0-48.0); HEMOGLOBIN 8.6 g/dL (12-16); IMMATURE GRANULOCYTES 0.6 % (0-5); LYMPHOCYTES 28.3 % (15-50); MCH 27.7 pg (26.0-34.0); MCHC 31.5 g/dL (31.0-37.0); MCV 87.8 fL (80.0-100.0); MEAN PLATELET VOLUME 11.1 fL (7.4-10.4); MONOCYTES 7.5 % (2-11); NEUTROPHILS 61.4 % (40-80); PLATELET COUNT 194 10x3/uL (130-400); RBC 3.11 10x6/uL (4.00-5.40); RDW 13.9 % (11.5-14.5); WBC 3.6 10x3/uL (4.8-10.8)
[2019-02-24 04:58] VITALS: BP 149/93
[2019-02-24 05:27] LABS: ALBUMIN 2.7 g/dL (3.4-5.0); ALKALINE PHOSPHATASE 80 U/L (46-116); ALT (SGPT) 19 U/L (10-68); BILIRUBIN - TOTAL 0.27 mg/dL (0.2-1.3); CALC OSMOLALITY 276 mosm/kg (275-300); CALCIUM 9.5 mg/dL (8.5-10.1); CHLORIDE - SERUM 103 mmol/L (98-107); CREATININE - SERUM 0.5 mg/dL (0.6-1.3); GLUCOSE 101 mg/dL (74-106); POTASSIUM - SERUM 4.3 mmol/L (3.5-5.1); PROTEIN - SERUM 6.5 g/dL (6.4-8.2); SODIUM 138 mmol/L (136-145); UREA NITROGEN 14 mg/dL (7-18); eGFR NON AFRICAN AMERICAN > 90 mL/min (90-120)
[2019-02-24 08:45] VITALS: BP 149/95
[2019-02-24] MEDS ORDERED: IPRAT-ALBUT 0.5-3 ML UPD (11:45)
[2019-02-24] MEDS ORDERED: ZOSYN 3.3753.375 G1 IV (11:46)
[2019-02-24] MEDS ORDERED: DIFLUCAN PREMIX IV (11:47)
[2019-02-24] MEDS ORDERED: LOVENOX40 MG/0.4 SC (11:47)
[2019-02-24] MEDS ORDERED: PEPCID PO (11:49)
[2019-02-24] MEDS ORDERED: MUCINEX600 MG PO (11:49)
[2019-02-24] MEDS ORDERED: THERAGRAN M [BK1 TAB PO (11:51)
--- NOTE | 2019-02-24 12:33 | MORECARE ---
CASE MANAGEMENT DISCHARGE SUMMARY PATIENT: RAFAEL BRANNON MARICEL UNIT: [id number] ADM DATE: 02/16/19 AGE: 43 : 75 SEX: F ROOM/BED: D.2225 AUTHOR: ROBERTO CRISTOBAL PHYSICIAN: REFERRING PHYSICIAN: COLLEEN STEELE MD DATE OF SERVICE: 02/24/19 Discharge Plan Patient Name: RAFAEL BRANNON Facility: [facility]:[place] : 1975 Planned Disposition: Anticipated Discharge Date: Discharge Date: Expected LOS: Initial Reviewer: [email or web address] Initial Review Date: 02/21/2019 Generated: 02/24/19 1:33 pm Comments DCP- Discharge Planning Updated by [email or web address]: Jennifer Bell on 02/24/19 11:[address] Received approval from [place] to come to inpatient rehab today. Discharge orders received. Patient is in agreement to go to inpatient rehab today. States she will call her and let him know she is going to inpatient rehab today. CM will continue to follow and assist with discharge planning/needs. DCP- Discharge Planning Updated by [id number]: Jennifer Ray on 02/23/19 2:[address] Spoke with patient regarding discharge planning. She states she would like to go to inpatient rehab here for about a week for strengthening prior to discharging home. States if she is not approved to go to inpatient rehab she would like [facility] when discharging home. She does not have a preference of where to get her tube feeding supplies from. She cannot remember where she has gotten them before. Medicare will pay for supplies if it is her only source of nutrition. CM will continue to follow and assist with discharge planning/needs. DCP- Discharge Planning Updated by [id number]: Jennifer Bell on 02/21/19 12:[address] Patient Name: RAFAEL BRANNON Admission Status: Elective Accout number: [id number] Admission Date: 02-16-2019 : 1975 Admission Diagnosis:DYSPHAGIA, UNSPECIFIED Attending: COLLEEN STEELE Current LOS: 5 Anticipated DC Date: Planned Disposition: Primary Insurance: MEDICARE A & B Discharge Planning Comments: CM met with patient to discuss discharge planning, she is alone in the room. She states she lives with her and her 16 and 19 year old children. States that she is independent at home except she does use a walker or wheelchair to aide in ambulation. States her 2 children assist her as needed. I discussed the availability of rehab, SNF, home health and DME needed for tube feeds. She states that she is unsure what she needs right now until she sees "how her MS is doing." States she may need inpatient rehab. Declines home health if she goes home. States "my kids can help me." She is unsure who delivered her feeding supplies before, but will check with her family and let me know. CM will continue to follow and assist with discharge planning/needs. Renal Case Manager: Jennifer Bell DCPIA - Discharge Planning Initial Assessment Updated by [email or web address]: Jennifer Bell on 02/21/19 1:41 pm * Is the patient Alert and Oriented? Yes * How many steps to enter\\exit or inside your home? Ramp * PCP [facility] in [place] * Pharmacy [facility] in [place] * Preadmission Environment Home with Family * ADLs Partial Dependent * Partial ADLs (Assistance needed) Ambulation * Equipment Elevated [place] Seat Other Shower Chair Tub Bench Walker Wheelchair * Other Equipment Safety rails in shower * List name and contact numbers for known caregivers / representatives who currently or will assist patient after discharge: Jaylen Brannon - spouse - [phone] * Verbal permission to speak to the caregivers and representatives has been obtained from the patient. Yes * Community resources currently utilized None * Additional services required to return to the preadmission environment? Yes * Can the patient safely return to the preadmission environment? Yes * Has this patient been hospitalized within the prior 30 days at any hospital? Yes Coverage Notice Reviewer: [id number] Noemy Bell Notice Issued Date-Time: 02/23/2019 15:02 Notice Type: Patient Choice Letter Notice Delivered To: Patient Relationship to Patient: Self Roll Line Operator Name: Delivery Method: HAND - Hand Delivered Anita Days: Prior Verbal Notification: Recipient Understood Notice: Yes Recipient Signature: Yes Med Rec Note Co-signed by Attending: Coverage Notice Comment: [facility] Reviewer: [id number] Noemy Bell Notice Issued Date-Time: 02/24/2019 12:23 Notice Type: IM Discharge Notice Notice Delivered To: Patient Relationship to Patient: Self Roll Line Operator Name: Delivery Method: HAND - Hand Delivered Anita Days: Prior Verbal Notification: Recipient Understood Notice: Yes Recipient Signature: Yes Med Rec Note Co-signed by Attending: Coverage Notice Comment: IMM explained, signed, given, copy placed in MR Last DP export: 02/23/19 2:15 p Patient Name: RAFAEL BRANNON Page [id number] at 1233 All edits/amendments must be made on the electronic document DICTATION DATE: 02/24/19 1233 DIVER TENDER: MELANY 02/24/19 1233 RPT#: [id number] DC DATE: STATUS: ADM IN [facility] [address] [place] [address] END OF REPORT
[2019-02-24 14:37] VITALS: BP 139/88
[2019-02-24 18:03] VITALS: BP 123/84
--- NOTE | 2019-02-25 15:55 | MORECARE ---
CASE MANAGEMENT DISCHARGE SUMMARY PATIENT: RAFAEL BRANNON MARICEL UNIT: [id number] ADM DATE: 02/16/19 AGE: 43 : 75 SEX: F ROOM/BED: D.2225 AUTHOR: ROBERTO CRISTOBAL PHYSICIAN: REFERRING PHYSICIAN: COLLEEN STEELE MD DATE OF SERVICE: 02/25/19 Discharge Plan Patient Name: RAFAEL BRANNON Facility: [facility]:[place] : 1975 Planned Disposition: Anticipated Discharge Date: Discharge Date: 02/24/2019 Expected LOS: Initial Reviewer: [id number] Initial Review Date: 02/21/2019 Generated: 02/25/19 4:55 pm Comments DCP- Discharge Planning Updated by [id number]: Jennifer Bell on 02/24/19 11:[address] Received approval from [place] to come to inpatient rehab today. Discharge orders received. Patient is in agreement to go to inpatient rehab today. States she will call her and let him know she is going to inpatient rehab today. CM will continue to follow and assist with discharge planning/needs. DCP- Discharge Planning Updated by [id number]: Jennifer Ray on 02/23/19 2:[address] Spoke with patient regarding discharge planning. She states she would like to go to inpatient rehab here for about a week for strengthening prior to discharging home. States if she is not approved to go to inpatient rehab she would like [facility] when discharging home. She does not have a preference of where to get her tube feeding supplies from. She cannot remember where she has gotten them before. Medicare will pay for supplies if it is her only source of nutrition. CM will continue to follow and assist with discharge planning/needs. DCP- Discharge Planning Updated by [id number]: Jennifer Bell on 02/21/19 12:[address] Patient Name: RAFAEL BRANNON Admission Status: Elective Accout number: [id number] Admission Date: 02-16-2019 : 1975 Admission Diagnosis:DYSPHAGIA, UNSPECIFIED Attending: COLLEEN STEELE Current LOS: 5 Anticipated DC Date: Planned Disposition: Primary Insurance: MEDICARE A & B Discharge Planning Comments: CM met with patient to discuss discharge planning, she is alone in the room. She states she lives with her and her 16 and 19 year old children. States that she is independent at home except she does use a walker or wheelchair to aide in ambulation. States her 2 children assist her as needed. I discussed the availability of rehab, SNF, home health and DME needed for tube feeds. She states that she is unsure what she needs right now until she sees "how her MS is doing." States she may need inpatient rehab. Declines home health if she goes home. States "my kids can help me." She is unsure who delivered her feeding supplies before, but will check with her family and let me know. CM will continue to follow and assist with discharge planning/needs. Publishing Agent: Jennifer Bell DCPIA - Discharge Planning Initial Assessment Updated by [id number]: Jennifer Bell on 02/21/19 1:41 pm * Is the patient Alert and Oriented? Yes * How many steps to enter\\exit or inside your home? Ramp * PCP [facility] in [place] * Pharmacy [facility] in [place] * Preadmission Environment Home with Family * ADLs Partial Dependent * Partial ADLs (Assistance needed) Ambulation * Equipment Elevated [place] Seat Other Shower Chair Tub Bench Walker Wheelchair * Other Equipment Safety rails in shower * List name and contact numbers for known caregivers / representatives who currently or will assist patient after discharge: Jaylen Brannon - [facility] - [phone] * Verbal permission to speak to the caregivers and representatives has been obtained from the patient. Yes * Community resources currently utilized None * Additional services required to return to the preadmission environment? Yes * Can the patient safely return to the preadmission environment? Yes * Has this patient been hospitalized within the prior 30 days at any hospital? Yes Coverage Notice Reviewer: [id number] Noemy Bell Notice Issued Date-Time: 02/23/2019 15:02 Notice Type: Patient Choice Letter Notice Delivered To: Patient Relationship to Patient: Self Vacuum Caster Name: Delivery Method: HAND - Hand Delivered Anita Days: Prior Verbal Notification: Recipient Understood Notice: Yes Recipient Signature: Yes Med Rec Note Co-signed by Attending: Coverage Notice Comment: [facility] Reviewer: [id number] Noemy Bell Notice Issued Date-Time: 02/24/2019 12:23 Notice Type: IM Discharge Notice Notice Delivered To: Patient Relationship to Patient: Self Vacuum Caster Name: Delivery Method: HAND - Hand Delivered Anita Days: Prior Verbal Notification: Recipient Understood Notice: Yes Recipient Signature: Yes Med Rec Note Co-signed by Attending: Coverage Notice Comment: IMM explained, signed, given, copy placed in MR Last DP export: 02/24/19 11:33 a Patient Name: RAFAEL BRANNON Page [id number] at 1555 All edits/amendments must be made on the electronic document DICTATION DATE: 02/25/19 1554 ASTRO TECHNICIAN: MELANY 02/25/19 1554 RPT#: [id number] DC DATE:02/24/19 STATUS: DIS IN [facility] [address] [place] [address] END OF REPORT
== END 2019-02-24 18:47 | DRG 326 ==
LOC: D.MS 14:08
PROVIDERS: Family Medicine; Internal Medicine Hematology & Oncology; Internal Medicine Nephrology; ADMIT Surgery; ATTEND Surgery
PROC: 0DQ94ZZ Repair Duodenum, Percutaneous Endoscopic Approach (ICD-10-PCS; principal; 2019-02-20 09:00)
PROC: 0DHA3UZ Insertion of Feeding Device into Jejunum, Percutaneous Approach (ICD-10-PCS; 2019-02-20 09:00)
DX: K91.89 Other postprocedural complications and disorders of digestive system (principal); E43 Unspecified severe protein-calorie malnutrition; Z68.1 Body mass index [BMI] 19.9 or less, adult; E51.2 Wernicke's encephalopathy; R11.2 Nausea with vomiting, unspecified; R13.10 Dysphagia, unspecified; G35 Multiple sclerosis; R11.10 Vomiting, unspecified; E86.0 Dehydration; K31.89 Other diseases of stomach and duodenum

== ENCOUNTER 2019-02-24 17:08 | Inpatient (IN) | payer MEDICARE ==
[~2019-02-24 17:08] MED LIST changes: +IPRAT-ALBUT 0.5-3 ML UPD; +LOVENOX40 MG/0.4 SC; +MUCINEX600 MG PO; +PEPCID PO; +ZOSYN 3.3753.375 G1 IV
[2019-02-24 20:00] VITALS: BP 126/82
--- NOTE | 2019-02-24 20:03 | NUR ---
ADMIT THIS 43 Y/O FEMALE TO ROOM 1114A WITH DX OF GASTRIC SLEEVE REVISION FOR PHYSICAL REHAB AND SERVICES OF DR MAN. AWAKE AND ALERT. RESPIRATIONS UNLABORED. PEG TUBE IN PLACE WITH OSMOLITE 1.0 INFUSING PER [place] PUMP AT 60 ML/HR. LEFT UPPER CHEST INFSAPORT IN PLACE. NO ACUTE DISTRESS NOTED. ALERT AND ORIETNED X 4. CALL LIGHT IN REACH.
[2019-02-24 20:05] VITALS: BP 126/82; BMI 19.1
--- NOTE | 2019-02-25 05:13 | NUR ---
QUIET HOURS. RESTING IN BED WITH NO DISTRESS NOTED. PEG FEEDING INFUSING WITHOUT DIFFICULTY. INFUSAPORT INTACT. NO DISTRESS NOTED. CALL LIGHT IN REACH.
[2019-02-25 05:22] LABS: BASOPHILS 0.5 % (0-2); EOSINOPHILS 2.4 % (0-7); HEMATOCRIT 26.9 % (36.0-48.0); HEMOGLOBIN 8.5 g/dL (12-16); LYMPHOCYTES 29.7 % (15-50); MCH 28.1 pg (26.0-34.0); MCHC 31.6 g/dL (31.0-37.0); MCV 88.8 fL (80.0-100.0); MEAN PLATELET VOLUME 10.9 fL (7.4-10.4); MONOCYTES 9.4 % (2-11); PLATELET COUNT 227 10x3/uL (130-400); RBC 3.03 10x6/uL (4.00-5.40); WBC 3.7 10x3/uL (4.8-10.8)
[2019-02-25 05:30] LABS: CALC OSMOLALITY 278 mosm/kg (275-300); CALCIUM 9.1 mg/dL (8.5-10.1); CARBON DIOXIDE 29.5 mmol/L (21.0-32.0); CHLORIDE - SERUM 102 mmol/L (98-107); GLUCOSE 107 mg/dL (74-106); SODIUM 139 mmol/L (136-145); UREA NITROGEN 16 mg/dL (7-18)
[2019-02-25 05:31] LABS: CREATININE - SERUM 0.7 mg/dL (0.6-1.3); eGFR NON AFRICAN AMERICAN > 90 mL/min (90-120)
[2019-02-25 08:00] VITALS: BP 116/83
--- NOTE | 2019-02-25 08:00 | NUR ---
PATIENT IN REHAB ROOM. WORKING WITH PHYSICAL THERAPIST. PATIENT IS ALERT/ORIENT. VOICES NO NEEDS AT THIS TIME. WILL CONTINUE WITH PLAN OF CARE
--- NOTE | 2019-02-25 10:05 | NUR ---
PATIENT RESTING IN BED AFTER THERAPY. CALL LIGHT WITHIN REACH. G TUBE FEEDING, ISOMILTE 1.0 RUNNING AT 60CC/HR. PATIENT TOLERATING WELL. DENIES ANY N/V AT THIS TIME.
[2019-02-25 10:45] VITALS: BMI 19.0
--- NOTE | 2019-02-25 14:03 | NUR ---
ANTIBIOTIC IV RUNNING ON THIS PATIENT. LEFT INFUSA PORT. FAMILY IN ROOM VISTING. PATIENT VOICES NO NEEDS.
--- NOTE | 2019-02-25 15:00 | NUR ---
SITTING UP IN BED WATCHING TV.FAMILY AT BEDSIDE.CL IN REACH.
--- NOTE | 2019-02-25 16:00 | NUR ---
PRN PAIN MEDICTION GIVEN PER PATIENT REQUEST
--- NOTE | 2019-02-25 17:42 | NUR ---
NEW FEEDING BAG HUNG. OSMOLITE 1.0 RUNNING AT 60CC/HR WITH 50CC FLUSH Q 4 HOURS.
[2019-02-25 19:16] VITALS: BP 100/67
--- NOTE | 2019-02-25 19:16 | NUR ---
GREETED PATIENT AND INTRODUCED MYSELF. PATIENT IS SITTING UP IN BED TALKING ON THE PHONE. VITAL SIGNS OBTAINED. DENIES ANY NEEDS AT THIS TIME. CALL LIGHT IN REACH.
--- NOTE | 2019-02-26 00:28 | NUR ---
RESTING IN BED WITH EYES CLOSED.
--- NOTE | 2019-02-26 03:29 | NUR ---
PT UP TO THE BATHROOM INDEPENDENTLY. NO NEEDS VOICED.
--- NOTE | 2019-02-26 05:46 | NUR ---
PATIENT RESTING QUIETLY WITH EYES CLOSED. SR UP X2. BED IN LOWEST POSITION. RESPIRATIONS EVEN. NO S/S OF DISTRESS. CALL LIGHT IN REACH.
[2019-02-26 08:33] VITALS: BP 119/71
--- NOTE | 2019-02-26 08:50 | NUR ---
PATIENT ALERT/ORIENT. CALL LIGHT WITHIN REACH. VOICES NO NEEDS AT THIS TIME. WILL CONTINUE WITH PLAN OF CARE
--- NOTE | 2019-02-26 09:10 | NUR ---
Nutrition noted: TF formula changed to Osmolite 1.5 umair @ 40 ml/hr due to Osmolite 1.0 umair out of stock. RDN following.
--- NOTE | 2019-02-26 12:44 | NUR ---
PATIENT TOLERATING PEG TUBE FEEDING OF OSMOLITE 1.0 AT 60CC HR. PATIENT IS ALSO ON A FULL LIQUID DIET. ONLY ATE ABOUT 10%.
--- NOTE | 2019-02-26 14:00 | NUR ---
RESTING QUIETLY IN BED.CL IN REACH.
--- NOTE | 2019-02-26 15:02 | NUR ---
PRN PAIN MEDICATION GIVEN FOR ABDOMENAL PAIN PER PATIENT REQUEST
--- NOTE | 2019-02-26 17:24 | NUR ---
NEW FEEDING BAG HUNG. ORDER FOR J TUBE FEEDING CHANGED TO OSMOLITE 1.5 AT 40CC/HR
[2019-02-26 18:54] VITALS: BP 98/68
--- NOTE | 2019-02-26 18:54 | NUR ---
GREETED PATIENT AND INTRODUCED MYSELF. PATIENT IS SITTING ON SIDE OF BED WATCHING TV. RESPIRATIONS EVEN. NO S/S OF DISTRESS. SR UP X 2. BED IN LOWEST POSITION. CALL LIGHT IN REACH. VITAL SIGNS OBTAINED. PATIENT STATES THAT PAIN IS 8/10 AND REQUESTING PRN PAIN MEDICATION. TOLD PATIENT I WOULD SEE IF IT WAS TIME FOR HER PRN AND WOULD ADMINISTER.
--- NOTE | 2019-02-27 01:33 | NUR ---
PATIENT AWAKE AND REQUESTING PRN PAIN MEDICATION. PRN OXY ADMINISTERED FOR PAIN 9/10 ON RIGHT SIDE OF ABDOMEN.
[2019-02-27 06:19] LABS: CALC OSMOLALITY 286 mosm/kg (275-300); CALCIUM 9.1 mg/dL (8.5-10.1); CARBON DIOXIDE 29.1 mmol/L (21.0-32.0); CHLORIDE - SERUM 102 mmol/L (98-107); CREATININE - SERUM 0.8 mg/dL (0.6-1.3); GLUCOSE 117 mg/dL (74-106); SODIUM 140 mmol/L (136-145); UREA NITROGEN 33 mg/dL (7-18); eGFR NON AFRICAN AMERICAN 83 mL/min (90-120)
[2019-02-27 06:24] LABS: BASOPHILS 0.4 % (0-2); EOSINOPHILS 1.9 % (0-7); HEMATOCRIT 28.2 % (36.0-48.0); HEMOGLOBIN 8.7 g/dL (12-16); IMMATURE GRANULOCYTES 0.8 % (0-5); LYMPHOCYTES 32.4 % (15-50); MCH 27.5 pg (26.0-34.0); MCHC 30.9 g/dL (31.0-37.0); MCV 89.2 fL (80.0-100.0); MEAN PLATELET VOLUME 10.8 fL (7.4-10.4); MONOCYTES 9.1 % (2-11); NEUTROPHILS 55.4 % (40-80); RBC 3.16 10x6/uL (4.00-5.40); RDW 14.1 % (11.5-14.5); WBC 5.2 10x3/uL (4.8-10.8)
[2019-02-27 06:26] LABS: PLATELET COUNT 318 10x3/uL (130-400)
--- NOTE | 2019-02-27 07:35 | NUR ---
LAYING ON SIDE IN BED. DENIES NEEDS. DENIES INCREASED PAIN. TUBE FEEDS INFUSING ORDERED. CALL LIGHT IN REACH
[2019-02-27 08:33] VITALS: BP 106/74
--- NOTE | 2019-02-27 17:11 | NUR ---
LAYING ON BED WATCHING TV. DENIES NEEDS. PEG FEEDS STILL INFUSING. CALL LIGHT IN REACH
[2019-02-27 20:00] VITALS: BP 97/57
--- NOTE | 2019-02-27 20:00 | NUR ---
PATIENT RECEIVED SITTING UP IN BED WATCHING WATCHING TV. PATIENT ASSESSMENT & VITAL SIGNS DONE. ENTERAL FEED RUNNING PER ORDER. PATIENT HAD NO C/O PAIN OR DISTRESS. PATIENT ALERT & ORIENTED ABLE TO VOICE HER NEEDS & USE CALL LIGHT WITHIN REACH. WILL CONTINUE TO MONITOR.
--- NOTE | 2019-02-27 21:00 | NUR ---
PATIENT REFUSED SHOWER. "CLEANED BODY ON WEDNESDAY. TOO COLD AT NIGHT FOR SHOWER. WILL CLEAN UP IN DAYTIME."
--- NOTE | 2019-02-28 02:19 | NUR ---
PATIENT EYES CLOSED. RESPIRATIONS 18 & EVEN. BED LOW. ALARM ON. CALL LIGHT WITHIN REACH. WILL CONTINUE TO MONITOR.
[2019-02-28 08:00] VITALS: BP 111/66
--- NOTE | 2019-02-28 10:04 | NUR ---
Nutrition follow up TF formula was changed to Osmolite 1.5 as the Osmolite 1.0 is out of stock TF rate was decreased and therefore water intake was decrease BUN increased Spoke with pt and she reports she is not able to drink much Increased water flushes to 25mL q hour to better meet pt fluid needs RD following
--- NOTE | 2019-02-28 17:57 | NUR ---
DR. VIVIAN STEELE ROUNDED. HE SAID OK TO DC FROM HIS STAND POINT.
[2019-02-28 20:00] VITALS: BP 103/73
--- NOTE | 2019-02-28 20:00 | NUR ---
PATIENT RECEIVED SITTING UP IN BED. PATIENT ASSESSMENT & VITAL SIGNS DONE. NO C/O PAIN OR DISTRESS. PATIENT ENTERAL FEED CONTINUES PER ORDER. PATIENT BED LOW. CALL LIGHT WITHIN REACH. WILL CONTINUE TO MONITOR.
--- NOTE | 2019-03-01 03:55 | NUR ---
PATIENT USED CALL LIGHT FOR PAIN MEDICATION REQUEST. PATIENT PAIN LEVEL 8 ABDOMEN PAIN. PATIENT ABLE TO VOICE HER NEEDS & USE CALL LIGHT WITHIN REACH. ENTERAL FEED CONTINUES PER ORDER. WILL CONTINUE TO MONITOR.
[2019-03-01 07:34] LABS: BASOPHILS 0.5 % (0-2); EOSINOPHILS 2.1 % (0-7); HEMOGLOBIN 8.7 g/dL (12-16); IMMATURE GRANULOCYTES 0.8 % (0-5); LYMPHOCYTES 27.4 % (15-50); MCH 27.5 pg (26.0-34.0); MCHC 31.1 g/dL (31.0-37.0); MCV 88.6 fL (80.0-100.0); MEAN PLATELET VOLUME 10.6 fL (7.4-10.4); MONOCYTES 10.1 % (2-11); NEUTROPHILS 59.1 % (40-80); RBC 3.16 10x6/uL (4.00-5.40); RDW 14.5 % (11.5-14.5); WBC 3.8 10x3/uL (4.8-10.8)
[2019-03-01 07:53] LABS: PLATELET COUNT 223 10x3/uL (130-400)
--- NOTE | 2019-03-01 08:00 | NUR ---
SHIFT ASSTMT COMPLETED.
[2019-03-01 08:11] LABS: CALC OSMOLALITY 287 mosm/kg (275-300); CALCIUM 9.6 mg/dL (8.5-10.1); CARBON DIOXIDE 28.5 mmol/L (21.0-32.0); CHLORIDE - SERUM 102 mmol/L (98-107); CREATININE - SERUM 0.8 mg/dL (0.6-1.3); GLUCOSE 100 mg/dL (74-106); POTASSIUM - SERUM 4.7 mmol/L (3.5-5.1); SODIUM 139 mmol/L (136-145); UREA NITROGEN 40 mg/dL (7-18); eGFR NON AFRICAN AMERICAN 83 mL/min (90-120)
[2019-03-01 08:33] VITALS: BP 106/74
--- NOTE | 2019-03-01 12:00 | NUR ---
EATING LUNCH.DENIES NEEDS.
--- NOTE | 2019-03-01 12:55 | RHP ---
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 HISTORY OF PRESENT ILLNESS: The patient admitted to inpatient rehab due to complications from gastric sleeve revision. She is a 43-year-old patient followed by Dr. Pena who has had multiple medical issues, presented on 02/16/2019 with complaints of persistent vomiting and dysphagia. She was directly admitted to the hospital for dehydration and workup, it was decided that she stay for an EGD, laparoscopic partial gastrectomy, possible bypass and feeding tube placement. She has had multiple hospitalizations for complaints in the past. She has been in the rehab for a couple of times and discharged to home successfully. She has a history of multiple sclerosis it was diagnosed after she underwent a barometric procedure. She has had recurrent problems. She did have a G-tube for a while, but this was taken out. She lost 250 pounds after undergoing gastric sleeve surgery. She has had a long-term hospitalization and rehab for poor mobility. Most recently, she has had increasing abdominal pain, vomiting, and difficulty keeping anything down. She has had multiple EGDs, manometry, GI evaluations. She has multilevel degenerative disc disease in her low back secondary to MRI. She has had thrombocytopenia. Dr. Ornelas, our oncologist, has started IV therapy. The patient's barriers to discharge include to, but are not limited to self-care deficits, nutritional deficiencies, global weakness, new-onset jejunostomy tube feedings. Other comorbidities include a 24-hour care for hypertension, COPD, asthma and diabetes. Ms. Brannon was previously moderately independent with ADLs and mobility and will require intensive therapy with PT, OT and speech therapy in order to return home where she has a very supportive family. COMORBIDITIES: Include multiple sclerosis, Wernicke's, neuropathy, COPD, asthma, gastroesophageal reflux disease, acute kidney injury, dehydration, thrombocytopenia, severe protein-calorie malnutrition. She has had a gastric sleeve procedure, dysphagia, intractable nausea and vomiting. PAST MEDICAL HISTORY: Significant for multiple sclerosis, diabetes, hypertension, COPD, asthma, obstructive sleep apnea, acid reflux, diarrhea, chronic back pain, depression. PAST SURGICAL HISTORY: Includes gallbladder surgery, times 2. She has had a tendon repair in her wrist, left ACL, gastric sleeve. ALLERGIES: METOPROLOL. CURRENT MEDICATIONS: Include a multivitamin daily, she is on potassium 20 mEq daily, furosemide 20 mg daily, she is on Lovenox 40 mg subQ daily, amlodipine 2.5 mg daily, Protonix 40 mg daily, DuoNeb updrafts, she is on Requip 0.5 mg t.i.d., Lyrica 150 mg t.i.d., Pepcid 40 mg at bedtime, Mucinex 1200 mg b.i.d., amitriptyline 10 mg at bedtime. She is finishing out her Zosyn IV. She is on Percocet 10/325 one tab every 4 hours p.r.n., Zofran 8 mg every 6 hours p.r.n. HISTORY AND PHYSICAL [id number] RAFAEL BRANNON and Duragesic patch 12 mcg every 3 days. HABITS: No current alcohol or tobacco use. FAMILY HISTORY: Noncontributory. SOCIAL HISTORY: The patient hopes to return back home and get back to her prior level of functioning. REVIEW OF SYSTEMS: GENERAL: Does complain of weakness and fatigue. HEENT: Denies cold, cough, or congestion. CARDIOVASCULAR: Denies chest pain. PHYSICAL EXAMINATION: VITAL SIGNS: Stable, afebrile. Generally, a thin female in no acute distress, alert upon exam. HEENT: Normocephalic and atraumatic. Mucosa moist. NECK: Supple, with no lymphadenopathy. LUNGS: Clear in upper house. HEART: Regular rate and rhythm. No murmurs, rubs or gallops. ABDOMEN: Soft. She does have numerous surgical incisions and also healing areas noted. EXTREMITIES: No clubbing, cyanosis or edema. NEUROLOGIC: She does have some proximal muscle weakness. LABORATORY DATA: Her white count is 3.7, H&H of 8.5 and 26.9, and platelet count is noted to be 222. Her admit sodium is 139, potassium is 4.0, BUN and creatinine of 10 and 0.7 and blood sugar was noted to be 107. ASSESSMENT: This is a 43-year-old female patient admitted to rehab with a working diagnosis of complications secondary to a gastric sleeve revision and debility. The patient has potential to make improvement. We instituted the following multidisciplinary therapies include, but not limited to physical, occupational, respiratory, speech, nutritional services, prosthetics and orthotics. Given her complex medical condition and risk for more complications, rehabilitation services cannot be provided at a low level of care such as skilled nurse facility. PLAN: 1. Admit to [facility] for intensive inpatient therapy to include the following disciplines: A. Physical therapy to improve gait, all transfer skills and bed mobility to a modified independent level. B. Occupational therapy to a modified independent level. C. Case management to assist with discharge planning and placement options. D. Nutrition to assist with nutritional needs. E. Rehabilitation nursing to assist in monitoring the underlying medical conditions and to assist with any type of bowel or bladder management. 2. The patient's current medication and medical care will be continued. 3. The patient will be placed on standard fall precautions. 4. The patient's estimated length of stay is approximately 7-10 days. 5. We will work with nutrition with this patient. Continue to monitor the areas in her abdomen and also we will finish out her antibiotics. I will see again on Wednesday morning. HISTORY AND PHYSICAL [id number] ISABELLAPAULRAFAEL MARICEL TRANSINT:[id number] Voice Confirmation ID: [id number] DOCUMENT ID: [id number] YAYA notes whether there has been none or any medical/functional change since admission: - No change since pre-admission screen. YAYA attests patient continues to be appropriate for IRF: - Continues to be appropriate. MEGAN MAN MD at 1255 CC: [id number] DICTATION DATE: 02/25/19 0826 FUNDRAISING DIRECTOR: 02/25/19 1158 ADM IN [facility] [address] [place] [address]
[2019-03-01 19:00] VITALS: BP 102/64
--- NOTE | 2019-03-01 19:12 | NUR ---
GREETED PATIENT AND INTRODUCED MYSELF. PATIENT IS SITTING UP IN BED WATCHING TV. DENIES ANY NEEDS AT THIS TIME. CALL LIGHT IN REACH.
--- NOTE | 2019-03-02 07:30 | NUR ---
RECEIVED REPORT. SITTING UP ON SIDE OF BED ALERT AND ORIENTED X4. DENIES ANY NEEDS. C/O ABDOMINAL PAIN CRAMPING, LAST PAIN MEDICATION GIVE AT 0500. CALL LIGHT WITHIN REACH, FALL PRECAUTIONS IN PLACE. WILL CONTINUES TO MONITOR
[2019-03-02 08:00] VITALS: BP 109/72
--- NOTE | 2019-03-02 11:52 | NUR ---
WALKING IN TEMPLE WITH PT. NO SIGNS OF DISTRESS NOTED.
--- NOTE | 2019-03-02 13:35 | NUR ---
LYING IN BED EYES CLOSED RESTING. RR EVEN AND UNLABORED. CALL LIGHT WITHIN REACH, FALL PRECAUTIONS IN PLACE. WILL CONTINUE TO MONITOR
[2019-03-02 19:00] VITALS: BP 90/63
--- NOTE | 2019-03-02 19:55 | NUR ---
GREETED PATIENT AND INTRODUCED MYSELF HER NURSE. PATIENT IS LAYING IN BED WATCHING TV. DENIES ANY NEEDS AT THIS TIME. CALL LIGHT IN REACH.
--- NOTE | 2019-03-03 03:18 | NUR ---
PATIENT RESTING QUIETLY WITH EYES CLOSED. RESPIRATIONS EVEN. NO S/S OF DISTRESS. SR UP X 2. BED IN LOWEST POSITION. CONTINOUS FEED OF 1.5 OSMOLITE AT 40CC VIA J-TUBE INFUSING. CALL LIGHT IN REACH.
--- NOTE | 2019-03-03 08:00 | NUR ---
PATIENT IS ALERT/ORIENT. SITTING UP IN BED TO EAT BREAKFAST. CALL LIGHT WITHIN REACH. VOICES NO NEEDS. WILL CONTINUE WITH PLAN OF CARE
[2019-03-03 08:20] VITALS: BP 101/59
[2019-03-03 08:58] LABS: BASOPHILS 0.5 % (0-2); EOSINOPHILS 1.2 % (0-7); HEMATOCRIT 28.1 % (36.0-48.0); HEMOGLOBIN 8.7 g/dL (12-16); IMMATURE GRANULOCYTES 0.3 % (0-5); LYMPHOCYTES 13.2 % (15-50); MCH 27.5 pg (26.0-34.0); MCV 88.9 fL (80.0-100.0); MEAN PLATELET VOLUME 10.9 fL (7.4-10.4); MONOCYTES 9.2 % (2-11); NEUTROPHILS 75.6 % (40-80); PLATELET COUNT 260 10x3/uL (130-400); RBC 3.16 10x6/uL (4.00-5.40); RDW 14.7 % (11.5-14.5)
[2019-03-03 09:21] LABS: CALC OSMOLALITY 284 mosm/kg (275-300); CALCIUM 9.2 mg/dL (8.5-10.1); CARBON DIOXIDE 28.4 mmol/L (21.0-32.0); CHLORIDE - SERUM 103 mmol/L (98-107); CREATININE - SERUM 0.8 mg/dL (0.6-1.3); GLUCOSE 121 mg/dL (74-106); POTASSIUM - SERUM 5.7 mmol/L (3.5-5.1); SODIUM 139 mmol/L (136-145); UREA NITROGEN 30 mg/dL (7-18); eGFR NON AFRICAN AMERICAN 83 mL/min (90-120)
--- NOTE | 2019-03-03 10:23 | NUR ---
PATIENT IN REHAB ROOM. WORKING WITH PHYSICAL THERAPIST. DENIES ANY PAIN/DISC AT THIS TIME.
--- NOTE | 2019-03-03 14:48 | NUR ---
EDUCATION GIVEN ON J TUBE FEEDING
--- NOTE | 2019-03-03 19:57 | NUR ---
PT LYING IN BED. CALL LIGHT IN REACH. DENIES NEEDS AT THIS TIME. BED IN LOW SIDE RAILS X2. RESP EVEN AND UNLABORED. A/O X4. BOWEL ACTIVE X4. LUNGS CLEAR. WILL CONTINUE TO MONITOR.
[2019-03-03 19:59] VITALS: BP 150/59
--- NOTE | 2019-03-03 23:00 | NUR ---
CHANGED PEG TUBE FEED TUBING. 711CC OF OSMOLITE 1.5 WAS ADMINISTERED IN THE BAG AND 700CC OF WATER IN THE OTHER BAG. PEG TUBE INTACT. DRESSING C/D/I. NO COMPLICATIONS NOTED. TM
--- NOTE | 2019-03-03 23:49 | NUR ---
PT RESTING QUIETLY. CALL LIGHT IN REACH. NO DISTRESS NOTED. BED IN LOW. CPOC PEG SITE INTACT.
--- NOTE | 2019-03-04 00:11 | NUR ---
RESTING IN BED WITH EYES CLOSED AND RESPIRATIONS UNLABORED. NO DISTRESS NOTED. CALL LIGHT IN REACH.
--- NOTE | 2019-03-04 03:01 | NUR ---
RESTING QUIETLY. CL IN REACH. NO DISTRESS NOTED. EYES CLOSED. WCTM
--- NOTE | 2019-03-04 05:37 | NUR ---
PT COMPLAINED OF PAIN IN LEFT LOWER QUAD. PAIN PILL GIVEN PER MAR. DENIES FURTHER NEEDS AT THIS TIME. CPOC
[2019-03-04 08:51] VITALS: BP 127/79
--- NOTE | 2019-03-04 13:48 | NUR ---
SITTING UP ON SIDE OF BED TALKING TO STAFF. STATES PAIN MEDS EFFECTIVE AND DENIES DENIES N/V. TUBE FEEDS STILL INFUSING VIA PEG WITH NO C/O. CALL LIGHT IN REACH
--- NOTE | 2019-03-04 19:00 | NUR ---
PATIENT ALERT AND ORIENTED THIS SHIFT. TUBE FEEDING GOING AT 40 ML/HR. BAG CHANGED. PATIENT COMPLAINED OF PAIN BUT TOO EARLY TO GIVE HER HER PAIN MEDICAITON. NO OTHER COMPLAINTS. WILL CONTINUE TO MONITOR. CALL LIGHT WITHIN REACH.
[2019-03-04 21:48] VITALS: BP 94/60
--- NOTE | 2019-03-05 02:58 | NUR ---
C/O PAIN TO BACK. MEDICATED WITH PRN OXYCODONE.
--- NOTE | 2019-03-05 11:23 | NUR ---
PT RESTING IN BED WITH EYES OPEN CALL LIGHT IN REACH WILL MONITER
--- NOTE | 2019-03-05 16:34 | NUR ---
PT RESTING IN BED WITH EYES OPEN CALL LIGHT IN REACH NO PROBLEMS WILL MONITER
--- NOTE | 2019-03-05 18:24 | NUR ---
PT RESTING IN BED WITH EYES OPEN CALL LIGHT IN REACH WILL MONITER
--- NOTE | 2019-03-05 22:03 | NUR ---
PATIENT ASLEEP AT THIS TIME. AT 1930 WQAS MEDICATED WITH PRN PAIN MEDICATION FOR 8/10 PAIN LEVEL. HAD GOOD RESULTS FROM THIS. TUBE FEEDING GOING AT 40 ML/HR. NO REDNESS OR IRRITATION NOTED TO JT SITE. NO OTHER COMPLAINTS. WILL CONTINUE TO MONITOR. CALL LIGHT WITHIN REACH.
[2019-03-05 22:16] VITALS: BP 103/63
[2019-03-06 06:29] LABS: BASOPHILS 0.3 % (0-2); EOSINOPHILS 2.3 % (0-7); HEMATOCRIT 27.5 % (36.0-48.0); HEMOGLOBIN 8.5 g/dL (12-16); IMMATURE GRANULOCYTES 0.5 % (0-5); LYMPHOCYTES 13.7 % (15-50); MCH 27.4 pg (26.0-34.0); MCHC 30.9 g/dL (31.0-37.0); MCV 88.7 fL (80.0-100.0); MEAN PLATELET VOLUME 10.6 fL (7.4-10.4); MONOCYTES 7.9 % (2-11); NEUTROPHILS 75.3 % (40-80); PLATELET COUNT 277 10x3/uL (130-400); RDW 14.7 % (11.5-14.5); WBC 7.5 10x3/uL (4.8-10.8)
[2019-03-06 06:45] LABS: CALC OSMOLALITY 278 mosm/kg (275-300); CALCIUM 9.1 mg/dL (8.5-10.1); CARBON DIOXIDE 30.5 mmol/L (21.0-32.0); CHLORIDE - SERUM 102 mmol/L (98-107); CREATININE - SERUM 0.7 mg/dL (0.6-1.3); GLUCOSE 82 mg/dL (74-106); POTASSIUM - SERUM 4.8 mmol/L (3.5-5.1); SODIUM 137 mmol/L (136-145); UREA NITROGEN 28 mg/dL (7-18); eGFR NON AFRICAN AMERICAN > 90 mL/min (90-120)
[2019-03-06 08:00] VITALS: BP 105/70
--- NOTE | 2019-03-06 08:00 | NUR ---
PATIENT IS ALERT/ORIENT. USING CALL LIGHT FOR NEEDS. WILL CONTINUE WITH PLAN OF CARE
--- NOTE | 2019-03-06 10:32 | NUR ---
Nutrition follow up Reviewed chart and spoke with pt Pt has Osmolite @40mL/hour and water flushes 25mL/hour Pt reports her weight is stable and that she feels hydrated BUN improved Pt plans to d/c tomorrow and has no questions about diet. Pt reports she plans to follow a liquid diet until follow up with physician Pt reports no recent vomiting RD following
--- NOTE | 2019-03-06 11:46 | NUR ---
PATIENT IN REHAB ROOM. WORKING WITH PHYSICAL THERAPIST. DENIES ANY PAIN/DISC AT THIS TIME.
--- NOTE | 2019-03-06 13:30 | NUR ---
PATIENT REQUESTED PRN PAIN MEDICATION FOR ABDOMENAL PAIN/DISC. GIVEN
--- NOTE | 2019-03-06 13:33 | NUR ---
patient admitted to rehab from acute floor. dr. ching is patient pcp. dme at home is a walker, wheelchair, shower chair and a tub bench. will continue to follow with patient and will assist with discharge needs.
--- NOTE | 2019-03-06 17:43 | NUR ---
PRN PAIN MEDICATION GIVEN FOR ABDOMENAL PAIN/DISC.
[2019-03-06 19:00] VITALS: BP 111/73
--- NOTE | 2019-03-06 19:24 | NUR ---
PT IS RESTING IN BED WITH EYES OPEN. ALERT AND ORIENTED X 3. DENIES ACUTE DISCOMFORT AT THIS TIME. NO NEEDS VOICED. PEG TUBE IS INFUSING WITHOUT DIFFICULTY. PT EXCITED TO BE GOING HOME TOMORROW. SR'S ARE UP X 2 IN BED. CALL LIGHT AND BEDSIDE TABLE ARE WITHIN EASY REACH.
--- NOTE | 2019-03-06 21:41 | NUR ---
PT VOICED COMPLAINT OF ABD PAIN LEVEL OF 7. MEDICATED PER HER REQUEST PER MAR.
--- NOTE | 2019-03-07 00:01 | NUR ---
PT RESTING IN BED WATCHING TV. NO ACUTE DISTRESS NOTED.
--- NOTE | 2019-03-07 02:26 | NUR ---
RESTING IN BED WITH RESPIRATIONS UNLABORED. RECENTLY MEDICATED FOR PAIN. PEG FEEDING INFUSING WITHOUT DIFFICULTY. NO ACUTE DISTRESS NOTED.
--- NOTE | 2019-03-07 05:58 | NUR ---
PT IS RESTING IN BED WITH EYES CLOSED. NO ACUTE DISTRESS NOTED.
--- NOTE | 2019-03-07 09:20 | NUR ---
PT AM MEDS ADMINISTERED. PT DENIES NEEDS. WCTM.
[2019-03-07] MEDS ORDERED: PERCOCET 10-321 EAC1 PO (09:32)
[2019-03-07] MEDS ORDERED: DURAGESIC1 PATCH .4 TRANSDERM (09:32)
--- NOTE | 2019-03-07 10:35 | NUR ---
PATIENT DISCHARGING HOME TODAY WITH FAMILY. [facility] WILL RESUME THERAPY AT HOME. [facility] WILL PROVIDE TUBE FEEDING AND FEEDING PUMP TO PATIENT. DR. ONEIL 03/14/19 @ 11:15, DR. STEELE 03/17/19 @ 9:30. PATIENT CHOICE FORM AND IMFM FORMS SIGNED, COPY GIVEN TO PATIENT AND FILED IN CHART. DISCHARGE INSTRUCTIONS WITH FIM DATA FAXED TO PCP, HOME HEALTH AND REVIEWED WITH PATIENT.
--- NOTE | 2019-03-07 10:42 | NUR ---
PT DISCHARGE INSTRUCTINS REVIEWED. PT STATES UNDERSTANDING. PT MEDICATIONS FAXED OVER TO [facility] IN [place].
--- NOTE | 2019-03-07 17:27 | NUR ---
PT DISCHARGED WITH SPOUSE. PT ESCORTED OUT VIA WHEELCHAIR BY HOSPITAL STAFF.
== END 2019-03-07 17:27 | disposition home health service (06) | DRG 947 ==
LOC: D.REHAB 17:08
PROVIDERS: ADMIT Emergency Medicine; ATTEND Emergency Medicine
DX: R53.81 Other malaise (principal); E43 Unspecified severe protein-calorie malnutrition; K95.89 Other complications of other bariatric procedure; E51.2 Wernicke's encephalopathy; N17.9 Acute kidney failure, unspecified; G35 Multiple sclerosis; E11.40 Type 2 diabetes mellitus with diabetic neuropathy, unspecified; J44.9 Chronic obstructive pulmonary disease, unspecified; J45.909 Unspecified asthma, uncomplicated; K21.9 Gastro-esophageal reflux disease without esophagitis; E86.0 Dehydration; D69.6 Thrombocytopenia, unspecified; R13.10 Dysphagia, unspecified; R11.2 Nausea with vomiting, unspecified

== ENCOUNTER 2019-03-27 03:11 | Emergency (ER) | payer MEDICARE ==
[~2019-03-27] VITALS: Ht 162.6 cm; Wt 54.5 kg
[~2019-03-27 03:11] MED LIST changes: +PERCOCET 10-321 EAC1 PO
[2019-03-27 03:15] VITALS: Ht 162.6 cm; Wt 54.5 kg
[2019-03-27 03:36] LABS: BASOPHILS 0.2 % (0-2); EOSINOPHILS 0.2 % (0-7); HEMOGLOBIN 11.4 g/dL (12-16); LYMPHOCYTES 14.7 % (15-50); MCH 27.5 pg (26.0-34.0); MCHC 32.6 g/dL (31.0-37.0); MCV 84.3 fL (80.0-100.0); NEUTROPHILS 83.9 % (40-80); PLATELET COUNT 222 10x3/uL (130-400); RBC 4.15 10x6/uL (4.00-5.40); RDW 14.1 % (11.5-14.5); WBC 4.8 10x3/uL (4.8-10.8)
[2019-03-27 03:51] LABS: ALBUMIN 3.1 g/dL (3.4-5.0); ANION GAP 11.4 mmol/L (8-16); BILIRUBIN - TOTAL 0.27 mg/dL (0.2-1.3); CALCIUM 9.4 mg/dL (8.5-10.1); CARBON DIOXIDE 27.3 mmol/L (21.0-32.0); CREATININE - SERUM 1.2 mg/dL (0.6-1.3); MAGNESIUM - SERUM 1.5 mg/dL (1.8-2.4); POTASSIUM - SERUM 4.7 mmol/L (3.5-5.1); PROTEIN - SERUM 7.1 g/dL (6.4-8.2)
[2019-03-27 04:47] VITALS: BP 147/95
== END 2019-03-27 04:45 | disposition home or self-care (01) ==
LOC: D.ER 03:11
PROVIDERS: Emergency Medicine
DX: R53.1 Weakness (principal); E83.42 Hypomagnesemia; E86.0 Dehydration; E11.9 Type 2 diabetes mellitus without complications; I10 Essential (primary) hypertension; K21.9 Gastro-esophageal reflux disease without esophagitis; G35 Multiple sclerosis

== ENCOUNTER 2019-04-30 20:55 | Emergency (ER) | payer MEDICARE ==
[~2019-04-30] VITALS: Ht 162.6 cm; Wt 54.5 kg
[2019-04-30 20:57] VITALS: Ht 162.6 cm; Wt 54.5 kg
[2019-04-30 22:51] LABS: BASOPHILS 0.4 % (0-2); EOSINOPHILS 2.4 % (0-7); HEMATOCRIT 30.9 % (36.0-48.0); HEMOGLOBIN 9.8 g/dL (12-16); IMMATURE GRANULOCYTES 0.4 % (0-5); MCH 27.5 pg (26.0-34.0); MCHC 31.7 g/dL (31.0-37.0); MCV 86.6 fL (80.0-100.0); MEAN PLATELET VOLUME 11.7 fL (7.4-10.4); MONOCYTES 8.2 % (2-11); NEUTROPHILS 60.6 % (40-80); PLATELET COUNT 162 10x3/uL (130-400); RBC 3.57 10x6/uL (4.00-5.40); RDW 15.5 % (11.5-14.5); WBC 4.5 10x3/uL (4.8-10.8)
[2019-04-30 23:01] LABS: APPEARANCE CLEAR (CLEAR); BILIRUBIN NEGATIVE (NEGATIVE); COLOR YELLOW (YELLOW); GLUCOSE 50 mg/dL (NEGATIVE); HCG SERUM NEGATIVE (NEGATIVE); KETONE SMALL mg/dL (NEGATIVE); NITRITE NEGATIVE (NEGATIVE); PROTEIN NEGATIVE (NEGATIVE); UROBILINOGEN NORMAL (NORMAL)
[2019-04-30 23:21] LABS: ALKALINE PHOSPHATASE 92 U/L (46-116); ALT (SGPT) 23 U/L (10-68); AMYLASE - SERUM 78 U/L (25-115); BILIRUBIN - TOTAL 0.28 mg/dL (0.2-1.3); CALCIUM 8.7 mg/dL (8.5-10.1); CARBON DIOXIDE 19.7 mmol/L (21.0-32.0); CREATININE - SERUM 0.7 mg/dL (0.6-1.3); LIPASE 166 U/L (73-393); POTASSIUM - SERUM 4.1 mmol/L (3.5-5.1); PROTEIN - SERUM 5.7 g/dL (6.4-8.2); SODIUM 147 mmol/L (136-145); UREA NITROGEN 19 mg/dL (7-18); eGFR NON AFRICAN AMERICAN > 90 mL/min (90-120)
[2019-04-30 23:24] LABS: CALC OSMOLALITY 291 mosm/kg (275-300); GLUCOSE 71 mg/dL (74-106)
[2019-04-30 23:25] LABS: CHLORIDE - SERUM 116 mmol/L (98-107)
[2019-05-01 02:46] VITALS: BP 162/109
== END 2019-05-01 02:46 | disposition home or self-care (01) ==
LOC: D.ER 20:55
PROVIDERS: Family Medicine
DX: A08.4 Viral intestinal infection, unspecified (principal); R10.9 Unspecified abdominal pain; E87.0 Hyperosmolality and hypernatremia; G35 Multiple sclerosis

== ENCOUNTER 2019-05-06 05:14 | Emergency (ER) | payer MEDICARE ==
[~2019-05-06] VITALS: Ht 162.6 cm; Wt 54.5 kg
[2019-05-06 05:20] VITALS: Ht 162.6 cm; Wt 54.5 kg
[2019-05-06 05:41] LABS: APPEARANCE CLEAR (CLEAR); BILIRUBIN NEGATIVE (NEGATIVE); COLOR YELLOW (YELLOW); GLUCOSE NEGATIVE (NEGATIVE); KETONE SMALL mg/dL (NEGATIVE); NITRITE NEGATIVE (NEGATIVE); PROTEIN NEGATIVE (NEGATIVE); SPECIFIC GRAVITY 1.015 (1.005-1.020); UROBILINOGEN NORMAL (NORMAL)
[2019-05-06 05:48] LABS: UDS - AMPHET NEGATIVE QUAL (NEGATIVE); UDS - BARB NEGATIVE QUAL (NEGATIVE); UDS - BENZO NEGATIVE QUAL (NEGATIVE); UDS - COCAINE NEGATIVE QUAL (NEGATIVE); UDS - OPIATE NEGATIVE QUAL (NEGATIVE); UDS - PCP NEGATIVE QUAL (NEGATIVE); UDS - THC NEGATIVE QUAL (NEGATIVE)
[2019-05-06 05:56] LABS: BASOPHILS 0.3 % (0-2); EOSINOPHILS 1.4 % (0-7); HEMOGLOBIN 10.3 g/dL (12-16); IMMATURE GRANULOCYTES 0.2 % (0-5); LYMPHOCYTES 24.9 % (15-50); MCH 28.1 pg (26.0-34.0); MCHC 32.2 g/dL (31.0-37.0); MCV 87.2 fL (80.0-100.0); MONOCYTES 6.8 % (2-11); NEUTROPHILS 66.4 % (40-80); RBC 3.67 10x6/uL (4.00-5.40); RDW 16.4 % (11.5-14.5); WBC 5.9 10x3/uL (4.8-10.8)
[2019-05-06 06:06] LABS: PLATELET COUNT 209 10x3/uL (130-400)
[2019-05-06 06:26] LABS: ALBUMIN 2.8 g/dL (3.4-5.0); ALKALINE PHOSPHATASE 99 U/L (46-116); ALT (SGPT) 27 U/L (10-68); BILIRUBIN - TOTAL 0.18 mg/dL (0.2-1.3); CALC OSMOLALITY 288 mosm/kg (275-300); CALCIUM 8.4 mg/dL (8.5-10.1); CARBON DIOXIDE 24.8 mmol/L (21.0-32.0); CHLORIDE - SERUM 112 mmol/L (98-107); CREATININE - SERUM 0.7 mg/dL (0.6-1.3); GLUCOSE 82 mg/dL (74-106); POTASSIUM - SERUM 3.7 mmol/L (3.5-5.1); PROTEIN - SERUM 5.9 g/dL (6.4-8.2); SODIUM 145 mmol/L (136-145); UREA NITROGEN 16 mg/dL (7-18); eGFR NON AFRICAN AMERICAN > 90 mL/min (90-120)
[2019-05-06 06:30] LABS: LIPASE 226 U/L (73-393); TROPONIN-I < 0.017 ng/mL (0.000-0.060)
[2019-05-06 06:57] VITALS: BP 149/95
== END 2019-05-06 06:58 | disposition home or self-care (01) ==
LOC: D.ER 05:14
PROVIDERS: Family Medicine
DX: R10.9 Unspecified abdominal pain (principal)

== ENCOUNTER 2019-05-09 16:10 | Inpatient (IN) | payer MEDICARE ==
[~2019-05-09] VITALS: Ht 162.6 cm; Wt 59.0 kg
[2019-05-09 16:37] LABS: BASOPHILS 0.4 % (0-2); EOSINOPHILS 2.1 % (0-7); HEMATOCRIT 36.8 % (36.0-48.0); HEMOGLOBIN 12.2 g/dL (12-16); IMMATURE GRANULOCYTES 0.3 % (0-5); LYMPHOCYTES 18.2 % (15-50); MCH 28.5 pg (26.0-34.0); MCHC 33.2 g/dL (31.0-37.0); MEAN PLATELET VOLUME 10.6 fL (7.4-10.4); MONOCYTES 6.1 % (2-11); NEUTROPHILS 72.9 % (40-80); PLATELET COUNT 240 10x3/uL (130-400); RBC 4.28 10x6/uL (4.00-5.40); RDW 16.4 % (11.5-14.5); WBC 6.7 10x3/uL (4.8-10.8)
[2019-05-09 16:44] LABS: APPEARANCE CLEAR (CLEAR); BILIRUBIN NEGATIVE (NEGATIVE); COLOR YELLOW (YELLOW); GLUCOSE NEGATIVE (NEGATIVE); KETONE SMALL mg/dL (NEGATIVE); NITRITE NEGATIVE (NEGATIVE); PROTEIN NEGATIVE (NEGATIVE); SPECIFIC GRAVITY 1.015 (1.005-1.020); UROBILINOGEN NORMAL (NORMAL)
[2019-05-09 16:45] LABS: BACTERIA FEW /hpf (NONE SEEN); EPITHELIAL CELLS 0-5 /hpf (0-5); RED CELLS - URINE OCC /hpf (0-5); WHITE CELLS - URINE 0-5 /hpf (0-5)
[2019-05-09 16:54] LABS: ALBUMIN 3.2 g/dL (3.4-5.0); ALKALINE PHOSPHATASE 104 U/L (46-116); ALT (SGPT) 26 U/L (10-68); BILIRUBIN - TOTAL 0.36 mg/dL (0.2-1.3); CALCIUM 8.8 mg/dL (8.5-10.1); CARBON DIOXIDE 27.1 mmol/L (21.0-32.0); CHLORIDE - SERUM 105 mmol/L (98-107); CREATININE - SERUM 0.9 mg/dL (0.6-1.3); PROTEIN - SERUM 6.5 g/dL (6.4-8.2); SODIUM 140 mmol/L (136-145); UREA NITROGEN 12 mg/dL (7-18); eGFR NON AFRICAN AMERICAN 72 mL/min (90-120)
[2019-05-09 16:56] LABS: AMYLASE - SERUM 167 U/L (25-115); CALC OSMOLALITY 283 mosm/kg (275-300); GLUCOSE 180 mg/dL (74-106); LIPASE 91 U/L (73-393); TROPONIN-I < 0.017 ng/mL (0.000-0.060)
[2019-05-09 18:35] VITALS: BP 170/102
--- NOTE | 2019-05-09 18:56 | MORECARE ---
CASE MANAGEMENT DISCHARGE SUMMARY PATIENT: RAFAEL PETTY MARICEL UNIT: [id number] ADM DATE: 05/09/19 AGE: 44 : 75 SEX: F ROOM/BED: D.2238 AUTHOR: ROBERTO CRISTOBAL PHYSICIAN: REFERRING PHYSICIAN: SHADE VENEGAS MD DATE OF SERVICE: 05/09/19 Discharge Plan Patient Name: RAFAEL PETTY Facility: [facility]:[place] : 1975 Planned Disposition: Home Anticipated Discharge Date: 05/11/19 Discharge Date: Expected LOS: 2 Initial Reviewer: [email or web address] Initial Review Date: 05/09/2019 Generated: 05/09/19 7:56 pm Patient Name: RAFAEL PETTY Page [id number] at 1856 All edits/amendments must be made on the electronic document DICTATION DATE: 05/09/191855 PHOTOGRAPHIC HAND DEVELOPER: MELANY 05/09/191855 RPT#: [id number] DC DATE: STATUS: ADM IN [facility] [address] [place] [address] END OF REPORT
--- NOTE | 2019-05-09 19:05 | MORECARE ---
CASE MANAGEMENT DISCHARGE SUMMARY PATIENT: RAFAEL BRANNON MARICEL UNIT: [id number] ADM DATE: 05/09/19 AGE: 44 : 75 SEX: F ROOM/BED: D.2238 AUTHOR: ROBERTO CRISTOBAL PHYSICIAN: REFERRING PHYSICIAN: SHADE VENEGAS MD DATE OF SERVICE: 05/09/19 Discharge Plan Patient Name: RAFAEL BRANNON Facility: [facility]:[place] : 1975 Planned Disposition: Home Anticipated Discharge Date: 05/11/19 Discharge Date: Expected LOS: 2 Initial Reviewer: [email or web address] Initial Review Date: 05/09/2019 Generated: 05/09/19 8:04 pm DCP- Discharge Planning Updated by [email or web address]: Isamar Bermudez on 05/09/19 6:[address] Patient Name: RAFAEL BRANNON Admission Status: ER Accout number: [id number] Admission Date: 05-09-2019 : 1975 Admission Diagnosis: Attending: SHADE VENEGAS Current LOS: 1 Anticipated DC Date: 05-11-2019 Planned Disposition: Home Primary Insurance: MEDICARE A & B Discharge Planning Comments: DC PLAN: Return home with her independently. ANTICIPATED DC NEEDS: Denied known dc needs during initial assessment. CM met with patient and her , Jaylen to complete initial dc planning assessment. CM educated patient on the CM role and verbal consent given by patient to complete assessment. CM verified patient's address, phone number, and emergency contact phone numbers. Patient lives at home with her and reports she is independent in her care at home. At discharge patient plans to return home and feels this is a safe discharge. CM discussed availability of home health, rehab services, and medical equipment. Patient denied known discharge needs at this time. Patient reports her will transport him/her home at time of discharge. CM will continue to follow and will assist as needed with dc plans/needs. Case Making Machine Operator: Isamar Bermudez RN, [facility] DCPIA - Discharge Planning Initial Assessment Updated by [email or web address]: Isamar Bermudez on 05/09/19 6:57 pm * Is the patient Alert and Oriented? Yes * PCP Dr. Pena * Pharmacy [facility] * Preadmission Environment Home with Family * ADLs Independent * Equipment Bedside Commode Cane Rolling Walker Tub Bench Wheelchair * List name and contact numbers for known caregivers / representatives who currently or will assist patient after discharge: Jaylen Brannon - - [phone] * Verbal permission to speak to the caregivers and representatives has been obtained from the patient. Yes * Community resources currently utilized None * Additional services required to return to the preadmission environment? No * Can the patient safely return to the preadmission environment? Yes * Has this patient been hospitalized within the prior 30 days at any hospital? Yes Last DP export: 05/09/19 5:56 p Patient Name: RAFAEL BRANNON Page 85093 at 1905 All edits/amendments must be made on the electronic document DICTATION DATE: 05/09/191903 FOOT DOCTOR: MELANY 05/09/191903 RPT#: [id number] DC DATE: STATUS: ADM IN [facility] [address] [place] [address] END OF REPORT
[2019-05-09 23:59] VITALS: BP 162/104; BMI 22.3
[2019-05-10] VITALS: BP 166/103; BP 166/63
[2019-05-10 04:00] VITALS: BP 157/103
[2019-05-10 06:24] LABS: BASOPHILS 0.2 % (0-2); EOSINOPHILS 2.5 % (0-7); HEMATOCRIT 35.1 % (36.0-48.0); HEMOGLOBIN 11.4 g/dL (12-16); IMMATURE GRANULOCYTES 0.2 % (0-5); LYMPHOCYTES 25.8 % (15-50); MCH 27.9 pg (26.0-34.0); MCHC 32.5 g/dL (31.0-37.0); MEAN PLATELET VOLUME 10.3 fL (7.4-10.4); NEUTROPHILS 64.3 % (40-80); PLATELET COUNT 196 10x3/uL (130-400); RBC 4.08 10x6/uL (4.00-5.40); RDW 16.3 % (11.5-14.5)
[2019-05-10 06:37] LABS: INR 0.97 (0.85-1.17); PROTIME 12.4 SECONDS (11.6-15.0)
[2019-05-10 06:42] LABS: APTT 27.5 SECONDS (22.8-39.4)
[2019-05-10 06:45] LABS: ALKALINE PHOSPHATASE 105 U/L (46-116); ALT (SGPT) 45 U/L (10-68); CALC OSMOLALITY 283 mosm/kg (275-300); CALCIUM 8.9 mg/dL (8.5-10.1); CHLORIDE - SERUM 107 mmol/L (98-107); CREATININE - SERUM 0.6 mg/dL (0.6-1.3); GLUCOSE 97 mg/dL (74-106); MAGNESIUM - SERUM 2.9 mg/dL (1.8-2.4); PHOSPHOROUS 3.8 mg/dL (2.5-4.9); POTASSIUM - SERUM 3.8 mmol/L (3.5-5.1); SODIUM 143 mmol/L (136-145); UREA NITROGEN 9 mg/dL (7-18); eGFR NON AFRICAN AMERICAN > 90 mL/min (90-120)
[2019-05-10 06:46] LABS: WBC 4.9 10x3/uL (4.8-10.8)
[2019-05-10 08:48] VITALS: BP 163/103
[2019-05-10 11:43] VITALS: BP 156/102
[2019-05-10 14:06] VITALS: BMI 22.3
[2019-05-10 16:34] VITALS: BP 151/96
[2019-05-10 20:00] VITALS: BP 142/92
[2019-05-11 04:00] VITALS: BP 158/98
[2019-05-11 06:32] LABS: BASOPHILS 0.6 % (0-2); HEMATOCRIT 35.8 % (36.0-48.0); HEMOGLOBIN 11.5 g/dL (12-16); IMMATURE GRANULOCYTES 0.3 % (0-5); LYMPHOCYTES 34.5 % (15-50); MCHC 32.1 g/dL (31.0-37.0); MCV 87.1 fL (80.0-100.0); MEAN PLATELET VOLUME 10.9 fL (7.4-10.4); MONOCYTES 5.5 % (2-11); NEUTROPHILS 56.1 % (40-80); PLATELET COUNT 177 10x3/uL (130-400); RBC 4.11 10x6/uL (4.00-5.40); RDW 16.3 % (11.5-14.5)
[2019-05-11 06:42] LABS: WBC 3.6 10x3/uL (4.8-10.8)
[2019-05-11 06:50] LABS: CALC OSMOLALITY 279 mosm/kg (275-300); CALCIUM 8.9 mg/dL (8.5-10.1); CARBON DIOXIDE 29.6 mmol/L (21.0-32.0); CHLORIDE - SERUM 106 mmol/L (98-107); CREATININE - SERUM 0.6 mg/dL (0.6-1.3); GLUCOSE 84 mg/dL (74-106); MAGNESIUM - SERUM 2.3 mg/dL (1.8-2.4); PHOSPHOROUS 4.3 mg/dL (2.5-4.9); SODIUM 142 mmol/L (136-145); eGFR NON AFRICAN AMERICAN > 90 mL/min (90-120)
[2019-05-11 06:52] LABS: UREA NITROGEN 6 mg/dL (7-18)
[2019-05-11 09:39] VITALS: BP 157/96
[2019-05-11 12:26] LABS: UDS - AMPHET NEGATIVE QUAL (NEGATIVE); UDS - BARB NEGATIVE QUAL (NEGATIVE); UDS - BENZO NEGATIVE QUAL (NEGATIVE); UDS - COCAINE NEGATIVE QUAL (NEGATIVE); UDS - OPIATE POSITIVE QUAL (NEGATIVE); UDS - PCP NEGATIVE QUAL (NEGATIVE); UDS - THC NEGATIVE QUAL (NEGATIVE)
[2019-05-11 14:38] VITALS: Ht 162.6 cm; Wt 59.0 kg
[2019-05-11 15:45] VITALS: BP 181/105
[2019-05-11 20:00] VITALS: BP 133/95
[2019-05-12] VITALS: BP 149/89
[2019-05-12 04:00] VITALS: BP 137/87
[2019-05-12 06:34] LABS: BASOPHILS 0.2 % (0-2); EOSINOPHILS 2.4 % (0-7); HEMATOCRIT 35.3 % (36.0-48.0); HEMOGLOBIN 11.6 g/dL (12-16); IMMATURE GRANULOCYTES 0.2 % (0-5); LYMPHOCYTES 20.3 % (15-50); MCH 28.5 pg (26.0-34.0); MCHC 32.9 g/dL (31.0-37.0); MCV 86.7 fL (80.0-100.0); MEAN PLATELET VOLUME 10.6 fL (7.4-10.4); MONOCYTES 5.4 % (2-11); NEUTROPHILS 71.5 % (40-80); PLATELET COUNT 169 10x3/uL (130-400); RBC 4.07 10x6/uL (4.00-5.40); RDW 15.9 % (11.5-14.5)
[2019-05-12 06:45] LABS: WBC 4.7 10x3/uL (4.8-10.8)
[2019-05-12 06:55] LABS: CALC OSMOLALITY 279 mosm/kg (275-300); CARBON DIOXIDE 30.2 mmol/L (21.0-32.0); CHLORIDE - SERUM 105 mmol/L (98-107); CREATININE - SERUM 0.6 mg/dL (0.6-1.3); GLUCOSE 92 mg/dL (74-106); POTASSIUM - SERUM 4.1 mmol/L (3.5-5.1); SODIUM 142 mmol/L (136-145); UREA NITROGEN 5 mg/dL (7-18); eGFR NON AFRICAN AMERICAN > 90 mL/min (90-120)
[2019-05-12 08:21] VITALS: BP 146/94
[2019-05-12] MEDS ORDERED: LEVOFLOXAC750 MG/150 IV (09:53)
[2019-05-12] MEDS ORDERED: FLAGYL 500500 MG/100 IV (09:53)
[2019-05-12 11:38] VITALS: BP 150/86
--- NOTE | 2019-05-12 11:45 | MORECARE ---
CASE MANAGEMENT DISCHARGE SUMMARY PATIENT: RAFAEL BRANNON MARICEL UNIT: [id number] ADM DATE: 05/09/19 AGE: 44 : 75 SEX: F ROOM/BED: D.2238 AUTHOR: ROBERTO CRISTOBAL PHYSICIAN: REFERRING PHYSICIAN: SHADE VENEGAS MD DATE OF SERVICE: 05/12/19 Discharge Plan Patient Name: RAFAEL BRANNON Facility: [facility]:[place] : 1975 Planned Disposition: Home Anticipated Discharge Date: 05/11/19 Discharge Date: Expected LOS: 2 Initial Reviewer: [email or web address] Initial Review Date: 05/09/2019 Generated: 05/12/19 12:44 pm DCP- Discharge Planning Updated by [email or web address]: Isamar Bermudez on 05/09/19 6:[address] Patient Name: RAFAEL BRANNON Admission Status: ER Accout number: [id number] Admission Date: 05-09-2019 : 1975 Admission Diagnosis: Attending: SHADE VENEGAS Current LOS: 1 Anticipated DC Date: 05-11-2019 Planned Disposition: Home Primary Insurance: MEDICARE A & B Discharge Planning Comments: DC PLAN: Return home with her independently. ANTICIPATED DC NEEDS: Denied known dc needs during initial assessment. CM met with patient and her , Jaylen to complete initial dc planning assessment. CM educated patient on the CM role and verbal consent given by patient to complete assessment. CM verified patient's address, phone number, and emergency contact phone numbers. Patient lives at home with her and reports she is independent in her care at home. At discharge patient plans to return home and feels this is a safe discharge. CM discussed availability of home health, rehab services, and medical equipment. Patient denied known discharge needs at this time. Patient reports her will transport him/her home at time of discharge. CM will continue to follow and will assist as needed with dc plans/needs. Shingle Grader: Isamar Bermudez RN, [facility] DCPIA - Discharge Planning Initial Assessment Updated by [email or web address]: Isamar Bermudez on 05/09/19 6:57 pm * Is the patient Alert and Oriented? Yes * PCP Dr. Pena * Pharmacy [facility] * Preadmission Environment Home with Family * ADLs Independent * Equipment Bedside Commode Cane Rolling Walker Tub Bench Wheelchair * List name and contact numbers for known caregivers / representatives who currently or will assist patient after discharge: Jaylen Brannon - [facility] - [phone] * Verbal permission to speak to the caregivers and representatives has been obtained from the patient. Yes * Community resources currently utilized None * Additional services required to return to the preadmission environment? No * Can the patient safely return to the preadmission environment? Yes * Has this patient been hospitalized within the prior 30 days at any hospital? Yes External Providers External Provider: [facility] Next Contact Date: Service Request Date: Service Type: Resolution: Reviewer: Comments: Last DP export: 05/09/19 6:05 p Patient Name: RAFAEL BRANNON Page 99900 at 1145 All edits/amendments must be made on the electronic document DICTATION DATE: 05/12/19 1144 CONVICT GUARD: MELANY 05/12/19 1144 RPT#: [id number] DC DATE: STATUS: ADM IN [facility] [address] [place] [address] END OF REPORT
--- NOTE | 2019-05-12 11:53 | MORECARE ---
CASE MANAGEMENT DISCHARGE SUMMARY PATIENT: RAFAEL BRANNON MARICEL UNIT: [id number] ADM DATE: 05/09/19 AGE: 44 : 75 SEX: F ROOM/BED: D.2238 AUTHOR: ROBERTO CRISTOBAL PHYSICIAN: REFERRING PHYSICIAN: SHADE VENEGAS MD DATE OF SERVICE: 05/12/19 Discharge Plan Patient Name: RAFAEL BRANNON Facility: [facility]:[place] : 1975 Planned Disposition: Home Anticipated Discharge Date: 05/11/19 Discharge Date: Expected LOS: 2 Initial Reviewer: [email or web address] Initial Review Date: 05/09/2019 Generated: 05/12/19 12:53 pm Comments DCP- Discharge Planning Updated by [email or web address]: Jennifer Bell on 05/12/19 10:[address] Received order for discharge to another facility for GI coverage. I spoke with the patient, she has no preference of hospital transferring to. I called the transfer team and spoke with Rafal. [employer] faxed per request. Rafal states they will begin with [facility] in [place]. CM will continue to follow and assist with discharge planning/needs. DCP- Discharge Planning Updated by [email or web address]: Isamar Bermudez on 05/09/19 6:[address] Patient Name: RAFAEL BRANNON Admission Status: Accout number: [id number] Admission Date: 05-09-2019 : 1975 Admission Diagnosis: Attending: SHADE VENEGAS Current LOS: 1 Anticipated DC Date: 05-11-2019 Planned Disposition: Home Primary Insurance: MEDICARE A & B Discharge Planning Comments: DC PLAN: Return home with her independently. ANTICIPATED DC NEEDS: Denied known dc needs during initial assessment. CM met with patient and her , Jaylen to complete initial dc planning assessment. CM educated patient on the CM role and verbal consent given by patient to complete assessment. CM verified patient's address, phone number, and emergency contact phone numbers. Patient lives at home with her and reports she is independent in her care at home. At discharge patient plans to return home and feels this is a safe discharge. CM discussed availability of home health, rehab services, and medical equipment. Patient denied known discharge needs at this time. Patient reports her will transport him/her home at time of discharge. CM will continue to follow and will assist as needed with dc plans/needs. Explosive Man: Isamar Bermudez RN, [facility] DCPIA - Discharge Planning Initial Assessment Updated by [email or web address]: Isamar Bermudez on 05/09/19 6:57 pm * Is the patient Alert and Oriented? Yes * PCP Dr. Pena * Pharmacy [facility] * Preadmission Environment Home with Family * ADLs Independent * Equipment Bedside Commode Cane Rolling Walker Tub Bench Wheelchair * List name and contact numbers for known caregivers / representatives who currently or will assist patient after discharge: Jaylen Brannon - - [phone] * Verbal permission to speak to the caregivers and representatives has been obtained from the patient. Yes * Community resources currently utilized None * Additional services required to return to the preadmission environment? No * Can the patient safely return to the preadmission environment? Yes * Has this patient been hospitalized within the prior 30 days at any hospital? Yes Last DP export: 05/12/19 10:45 a Patient Name: RAFAEL BRANNON Page 97565 at 1153 All edits/amendments must be made on the electronic document DICTATION DATE: 05/12/19 115 [facility] ATTENDANT: MELANY 05/12/19 115 RPT#: [id number] DC DATE: STATUS: ADM IN [facility] [address] [place] [address] END OF REPORT
[2019-05-12 12:20] LABS: ERYTHROCYTE SEDIMENTATION RATE 6 mm/hr (0-20)
--- NOTE | 2019-05-12 12:32 | MORECARE ---
CASE MANAGEMENT DISCHARGE SUMMARY PATIENT: RAFAEL BRANNON MARICEL UNIT: [id number] ADM DATE: 05/09/19 AGE: 44 : 75 SEX: F ROOM/BED: D.2238 AUTHOR: ROBERTO CRISTOBAL PHYSICIAN: REFERRING PHYSICIAN: SHADE VENEGAS MD DATE OF SERVICE: 05/12/19 Discharge Plan Patient Name: RAFAEL BRANNON Facility: [facility]:[place] : 1975 Planned Disposition: Home Anticipated Discharge Date: 05/11/19 Discharge Date: Expected LOS: 2 Initial Reviewer: [email or web address] Initial Review Date: 05/09/2019 Generated: 05/12/19 1:32 pm Comments DCP- Discharge Planning Updated by [email or web address]: Jennifer Bell on 05/12/19 11:[address] Patient states she will notify her family whenever discharge disposition has been confirmed, she is ok with transfer to [facility] [place] in [place] if accepted. CM will continue to follow and assist with discharge planning/needs. DCP- Discharge Planning Updated by [email or web address]: Jennifer Bell on 05/12/19 10:[address] Received order for discharge to another facility for GI coverage. I spoke with the patient, she has no preference of hospital transferring to. I called the transfer team and spoke with Rafal. Facesheet faxed per request. Rafal states they will begin with [facility] [place] in [place]. CM will continue to follow and assist with discharge planning/needs. DCP- Discharge Planning Updated by [email or web address]: Isamar Bermudez on 05/09/19 6:[address] Patient Name: RAFAEL BRANNON Admission Status: ER Accout number: [id number] Admission Date: 05-09-2019 : 1975 Admission Diagnosis: Attending: SHADE VENEGAS Current LOS: 1 Anticipated DC Date: 05-11-2019 Planned Disposition: Home Primary Insurance: MEDICARE A & B Discharge Planning Comments: DC PLAN: Return home with her independently. ANTICIPATED DC NEEDS: Denied known dc needs during initial assessment. CM met with patient and her , Jaylen to complete initial dc planning assessment. CM educated patient on the CM role and verbal consent given by patient to complete assessment. CM verified patient's address, phone number, and emergency contact phone numbers. Patient lives at home with her and reports she is independent in her care at home. At discharge patient plans to return home and feels this is a safe discharge. CM discussed availability of home health, rehab services, and medical equipment. Patient denied known discharge needs at this time. Patient reports her will transport him/her home at time of discharge. CM will continue to follow and will assist as needed with dc plans/needs. Light Industrial: Isamar Bermudez RN, [facility] DCPIA - Discharge Planning Initial Assessment Updated by [email or web address]: Isamar Bermudez on 05/09/19 6:57 pm * Is the patient Alert and Oriented? Yes * PCP Dr. Pena * Pharmacy [facility] * Preadmission Environment Home with Family * ADLs Independent * Equipment Bedside Commode Cane Rolling Walker Tub Bench Wheelchair * List name and contact numbers for known caregivers / representatives who currently or will assist patient after discharge: Jaylen Brannon - - [phone] * Verbal permission to speak to the caregivers and representatives has been obtained from the patient. Yes * Community resources currently utilized None * Additional services required to return to the preadmission environment? No * Can the patient safely return to the preadmission environment? Yes * Has this patient been hospitalized within the prior 30 days at any hospital? Yes Last DP export: 05/12/19 10:53 a Patient Name: RAFAEL BRANNON Page 21528 at 1232 All edits/amendments must be made on the electronic document DICTATION DATE: 05/12/19 1232 CONE WORKER: MELANY 05/12/19 1232 RPT#: [id number] DC DATE: STATUS: ADM IN [facility] [address] [place] [address] END OF REPORT
[2019-05-12 16:25] VITALS: BP 143/85
--- NOTE | 2019-05-12 16:37 | MORECARE ---
CASE MANAGEMENT DISCHARGE SUMMARY PATIENT: RAFAEL BRANNON MARICEL UNIT: [id number] ADM DATE: 05/09/19 AGE: 44 : 75 SEX: F ROOM/BED: D.2238 AUTHOR: LEVAR,DOC PHYSICIAN: REFERRING PHYSICIAN: SHADE VENEGAS MD DATE OF SERVICE: 05/12/19 Discharge Plan Patient Name: RAFAEL BRANNON Facility: [facility]:[place] : 1975 Planned Disposition: Home Anticipated Discharge Date: 05/11/19 Discharge Date: Expected LOS: 2 Initial Reviewer: [email or web address] Initial Review Date: 05/09/2019 Generated: 05/12/19 5:37 pm Comments DCP- Discharge Planning Updated by [email or web address]: Krista Sanchez on 05/12/19 3:[address] [facility] WITH [facility]SF[facility] C[facility] STATED THAT [facility] [place] WANTED DR VENEGAS TO DO IV ABX AND IVF AND SUPORTIVE CARE. THAT COLONOSCOPY IS NOT FIRST LINE OF TREATMENT AND TO CALL BACK NEXT WEEK IF NOT BETTER. DCP- Discharge Planning Updated by [email or web address]: Jennifer Bell on 05/12/19 11:[address] Patient states she will notify her family whenever discharge disposition has been confirmed, she is ok with transfer to [facility] if accepted. CM will continue to follow and assist with discharge planning/needs. DCP- Discharge Planning Updated by [email or web address]: Jennifer Bell on 05/12/19 10:[address] Received order for discharge to another facility for GI coverage. I spoke with the patient, she has no preference of hospital transferring to. I called the transfer team and spoke with Rafal. Facesheet faxed per request. Rafal states they will begin with [facility] in [place]. CM will continue to follow and assist with discharge planning/needs. DCP- Discharge Planning Updated by [id number]: Isamar Bermudez on 05/09/19 6:[address] Patient Name: RAFAEL BRANNNO Admission Status: ER Accout number: [id number] Admission Date: 05-09-2019 : 1975 Admission Diagnosis: Attending: SHADE VENEGAS Current LOS: 1 Anticipated DC Date: 05-11-2019 Planned Disposition: Home Primary Insurance: MEDICARE A & B Discharge Planning Comments: DC PLAN: Return home with her independently. ANTICIPATED DC NEEDS: Denied known dc needs during initial assessment. CM met with patient and her , Jaylen to complete initial dc planning assessment. CM educated patient on the CM role and verbal consent given by patient to complete assessment. CM verified patient's address, phone number, and emergency contact phone numbers. Patient lives at home with her and reports she is independent in her care at home. At discharge patient plans to return home and feels this is a safe discharge. CM discussed availability of home health, rehab services, and medical equipment. Patient denied known discharge needs at this time. Patient reports her will transport him/her home at time of discharge. CM will continue to follow and will assist as needed with dc plans/needs. Microsoft Bi Architect: Isamar Bermudez RN, [facility] DCPIA - Discharge Planning Initial Assessment Updated by [email or web address]: Isamar Bermudez on 05/09/19 6:57 pm * Is the patient Alert and Oriented? Yes * PCP Dr. Pena * Pharmacy [facility] * Preadmission Environment Home with Family * ADLs Independent * Equipment Bedside Commode Cane Rolling Walker Tub Bench Wheelchair * List name and contact numbers for known caregivers / representatives who currently or will assist patient after discharge: Jaylen Brannon - - [phone] * Verbal permission to speak to the caregivers and representatives has been obtained from the patient. Yes * Community resources currently utilized None * Additional services required to return to the preadmission environment? No * Can the patient safely return to the preadmission environment? Yes * Has this patient been hospitalized within the prior 30 days at any hospital? Yes Last DP export: 05/12/19 11:32 a Patient Name: RAFAEL BRANNON Page 39072 at 1637 All edits/amendments must be made on the electronic document DICTATION DATE: 05/12/191635 MATERIAL INSPECTOR: MELANY 05/12/191635 RPT#: [id number] DC DATE: STATUS: ADM IN [facility] [address] [place] [address] END OF REPORT
[2019-05-12 20:00] VITALS: BP 151/97
[2019-05-13] VITALS: BP 149/94
[2019-05-13 04:00] VITALS: BP 135/93
[2019-05-13 06:47] LABS: BASOPHILS 0.9 % (0-2); EOSINOPHILS 2.9 % (0-7); HEMATOCRIT 32.9 % (36.0-48.0); HEMOGLOBIN 10.6 g/dL (12-16); LYMPHOCYTES 39.4 % (15-50); MCH 27.9 pg (26.0-34.0); MCHC 32.2 g/dL (31.0-37.0); MCV 86.6 fL (80.0-100.0); MEAN PLATELET VOLUME 10.5 fL (7.4-10.4); MONOCYTES 5.7 % (2-11); NEUTROPHILS 51.1 % (40-80); PLATELET COUNT 166 10x3/uL (130-400); RDW 15.7 % (11.5-14.5)
[2019-05-13 07:05] LABS: WBC 3.5 10x3/uL (4.8-10.8)
[2019-05-13 07:08] LABS: CALC OSMOLALITY 277 mosm/kg (275-300); CALCIUM 8.7 mg/dL (8.5-10.1); CARBON DIOXIDE 27.6 mmol/L (21.0-32.0); CHLORIDE - SERUM 107 mmol/L (98-107); CREATININE - SERUM 0.7 mg/dL (0.6-1.3); GLUCOSE 86 mg/dL (74-106); MAGNESIUM - SERUM 1.7 mg/dL (1.8-2.4); POTASSIUM - SERUM 3.7 mmol/L (3.5-5.1); SODIUM 141 mmol/L (136-145); UREA NITROGEN 6 mg/dL (7-18); eGFR NON AFRICAN AMERICAN > 90 mL/min (90-120)
[2019-05-13 09:04] VITALS: BP 133/82
[2019-05-13 11:09] LABS: CYTOMEGALOVIRUS AB IGG <0.60 U/mL (0.00-0.59)
[2019-05-13 17:04] VITALS: BP 174/81
[2019-05-13 20:00] VITALS: BP 141/95
[2019-05-14] VITALS: BP 137/89
[2019-05-14 04:00] VITALS: BP 163/94
[2019-05-14 05:34] LABS: BASOPHILS 0.8 % (0-2); EOSINOPHILS 3.9 % (0-7); HEMATOCRIT 32.1 % (36.0-48.0); HEMOGLOBIN 10.2 g/dL (12-16); LYMPHOCYTES 40.8 % (15-50); MCH 27.6 pg (26.0-34.0); MCHC 31.8 g/dL (31.0-37.0); MEAN PLATELET VOLUME 10.8 fL (7.4-10.4); MONOCYTES 6.5 % (2-11); PLATELET COUNT 172 10x3/uL (130-400); RBC 3.69 10x6/uL (4.00-5.40); RDW 15.8 % (11.5-14.5); WBC 3.6 10x3/uL (4.8-10.8)
[2019-05-14 05:44] LABS: CALC OSMOLALITY 282 mosm/kg (275-300); CALCIUM 8.6 mg/dL (8.5-10.1); CARBON DIOXIDE 29.4 mmol/L (21.0-32.0); CHLORIDE - SERUM 108 mmol/L (98-107); CREATININE - SERUM 0.6 mg/dL (0.6-1.3); GLUCOSE 88 mg/dL (74-106); MAGNESIUM - SERUM 1.9 mg/dL (1.8-2.4); PHOSPHOROUS 3.6 mg/dL (2.5-4.9); SODIUM 143 mmol/L (136-145); eGFR NON AFRICAN AMERICAN > 90 mL/min (90-120)
[2019-05-14 05:51] LABS: UREA NITROGEN 9 mg/dL (7-18)
[2019-05-14 08:35] VITALS: BP 185/98
[2019-05-14 16:58] VITALS: BP 142/79
[2019-05-14 17:42] VITALS: BP 142/79
[2019-05-14 20:00] VITALS: BP 127/80
[2019-05-15] VITALS: BP 139/98
[2019-05-15 04:00] VITALS: BP 116/77
[2019-05-15 04:53] LABS: BASOPHILS 0.8 % (0-2); EOSINOPHILS 3.7 % (0-7); HEMATOCRIT 31.6 % (36.0-48.0); IMMATURE GRANULOCYTES 0.3 % (0-5); LYMPHOCYTES 41.8 % (15-50); MCH 27.4 pg (26.0-34.0); MCHC 31.6 g/dL (31.0-37.0); MCV 86.6 fL (80.0-100.0); MEAN PLATELET VOLUME 10.4 fL (7.4-10.4); MONOCYTES 6.5 % (2-11); NEUTROPHILS 46.9 % (40-80); PLATELET COUNT 163 10x3/uL (130-400); RBC 3.65 10x6/uL (4.00-5.40); RDW 15.9 % (11.5-14.5); WBC 3.8 10x3/uL (4.8-10.8)
[2019-05-15 05:11] LABS: CALC OSMOLALITY 280 mosm/kg (275-300); CALCIUM 8.5 mg/dL (8.5-10.1); CARBON DIOXIDE 27.3 mmol/L (21.0-32.0); CHLORIDE - SERUM 109 mmol/L (98-107); CREATININE - SERUM 0.7 mg/dL (0.6-1.3); GLUCOSE 91 mg/dL (74-106); MAGNESIUM - SERUM 1.7 mg/dL (1.8-2.4); PHOSPHOROUS 3.4 mg/dL (2.5-4.9); POTASSIUM - SERUM 3.9 mmol/L (3.5-5.1); SODIUM 142 mmol/L (136-145); UREA NITROGEN 8 mg/dL (7-18); eGFR NON AFRICAN AMERICAN > 90 mL/min (90-120)
[2019-05-15 08:05] VITALS: BP 140/97
[2019-05-15 12:42] VITALS: BP 153/93
[2019-05-15 17:16] VITALS: BP 144/89
[2019-05-15 19:48] VITALS: BP 120/57
[2019-05-16 00:59] VITALS: BP 127/92
[2019-05-16 05:08] VITALS: BP 137/86
[2019-05-16 06:03] LABS: BASOPHILS 0.5 % (0-2); EOSINOPHILS 2.9 % (0-7); HEMOGLOBIN 10.6 g/dL (12-16); IMMATURE GRANULOCYTES 0.3 % (0-5); LYMPHOCYTES 44.6 % (15-50); MCH 27.6 pg (26.0-34.0); MCHC 32.1 g/dL (31.0-37.0); MCV 85.9 fL (80.0-100.0); MEAN PLATELET VOLUME 10.7 fL (7.4-10.4); MONOCYTES 7.1 % (2-11); NEUTROPHILS 44.6 % (40-80); PLATELET COUNT 171 10x3/uL (130-400); RBC 3.84 10x6/uL (4.00-5.40); RDW 15.7 % (11.5-14.5); WBC 3.8 10x3/uL (4.8-10.8)
[2019-05-16 06:25] LABS: ALBUMIN 2.8 g/dL (3.4-5.0); ALKALINE PHOSPHATASE 86 U/L (46-116); ALT (SGPT) 22 U/L (10-68); BILIRUBIN - TOTAL 0.23 mg/dL (0.2-1.3); CALC OSMOLALITY 283 mosm/kg (275-300); CALCIUM 8.9 mg/dL (8.5-10.1); CARBON DIOXIDE 26.9 mmol/L (21.0-32.0); CHLORIDE - SERUM 110 mmol/L (98-107); CREATININE - SERUM 0.7 mg/dL (0.6-1.3); GLUCOSE 78 mg/dL (74-106); POTASSIUM - SERUM 4.2 mmol/L (3.5-5.1); PROTEIN - SERUM 5.2 g/dL (6.4-8.2); SODIUM 144 mmol/L (136-145); UREA NITROGEN 8 mg/dL (7-18); eGFR NON AFRICAN AMERICAN > 90 mL/min (90-120)
[2019-05-16 08:04] VITALS: BP 156/88
[2019-05-16] MEDS ORDERED: LEVAQUIN750 MG PO (11:00)
[2019-05-16] MEDS ORDERED: FLAGYL500 MG PO (11:00)
--- NOTE | 2019-05-16 11:05 | MORECARE ---
CASE MANAGEMENT DISCHARGE SUMMARY PATIENT: RAFAEL BRANNON MARICEL UNIT: [id number] ADM DATE: 05/09/19 AGE: 44 : 75 SEX: F ROOM/BED: D.2238 AUTHOR: ROBERTO CRISTOBAL PHYSICIAN: REFERRING PHYSICIAN: SHADE VENEGAS MD DATE OF SERVICE: 05/16/19 Discharge Plan Patient Name: RAFAEL BRANNON Facility: [facility]:[place] : 1975 Planned Disposition: Home Anticipated Discharge Date: 05/11/19 Discharge Date: Expected LOS: 2 Initial Reviewer: [email or web address] Initial Review Date: 05/09/2019 Generated: 05/16/19 12:04 pm Comments DCP- Discharge Planning Updated by [email or web address]: Jennifer Bell on 05/16/19 9:[address] Received discharge order. She declines home health, refusal signed. at bedside. She declines need for DME. Home today, to transport. DCP- Discharge Planning Updated by [email or web address]: Krista Sanchez on 05/12/19 3:[address] [facility] WITH TRANSFER CENTER STATED THAT [facility] WANTED DR VENEGAS TO DO IV ABX AND IVF AND SUPORTIVE CARE. THAT COLONOSCOPY IS NOT FIRST LINE OF TREATMENT AND TO CALL BACK NEXT WEEK IF NOT BETTER. DCP- Discharge Planning Updated by [email or web address]: Jennifer Bell on 05/12/19 11:[address] Patient states she will notify her family whenever discharge disposition has been confirmed, she is ok with transfer to [facility] if accepted. CM will continue to follow and assist with discharge planning/needs. DCP- Discharge Planning Updated by [email or web address]: Jennifer Bell on 05/12/19 10:[address] Received order for discharge to another facility for GI coverage. I spoke with the patient, she has no preference of hospital transferring to. I called the transfer team and spoke with Rafal. Facesheet faxed per request. Rafal states they will begin with [facility] in [place]. CM will continue to follow and assist with discharge planning/needs. DCP- Discharge Planning Updated by [email or web address]: Isamar Bermudez on 05/09/19 6:[address] Patient Name: RAFAEL BRANNON Admission Status: ER Accout number: [id number] Admission Date: 05-09-2019 : 1975 Admission Diagnosis: Attending: SHADE VENEGAS Current LOS: 1 Anticipated DC Date: 05-11-2019 Planned Disposition: Home Primary Insurance: MEDICARE A & B Discharge Planning Comments: DC PLAN: Return home with her independently. ANTICIPATED DC NEEDS: Denied known dc needs during initial assessment. CM met with patient and her , Jaylen to complete initial dc planning assessment. CM educated patient on the CM role and verbal consent given by patient to complete assessment. CM verified patient's address, phone number, and emergency contact phone numbers. Patient lives at home with her and reports she is independent in her care at home. At discharge patient plans to return home and feels this is a safe discharge. CM discussed availability of home health, rehab services, and medical equipment. Patient denied known discharge needs at this time. Patient reports her will transport him/her home at time of discharge. CM will continue to follow and will assist as needed with dc plans/needs. Beverage Distiller: Isamar Bermudez RN, [facility] DCPIA - Discharge Planning Initial Assessment Updated by [email or web address]: Isamar Bermudez on 05/09/19 6:57 pm * Is the patient Alert and Oriented? Yes * PCP Dr. Pena * Pharmacy [facility] * Preadmission Environment Home with Family * ADLs Independent * Equipment Bedside Commode Cane Rolling Walker Tub Bench Wheelchair * List name and contact numbers for known caregivers / representatives who currently or will assist patient after discharge: Jaylen Brannon - - [phone] * Verbal permission to speak to the caregivers and representatives has been obtained from the patient. Yes * Community resources currently utilized None * Additional services required to return to the preadmission environment? No * Can the patient safely return to the preadmission environment? Yes * Has this patient been hospitalized within the prior 30 days at any hospital? Yes Coverage Notice Reviewer: [email or web address] Noemy Bell Notice Issued Date-Time: 05/16/2019 9:00 Notice Type: IM Discharge Notice Notice Delivered To: Patient Relationship to Patient: Self Electronic System Engineer Name: Delivery Method: HAND - Hand Delivered Anita Days: Prior Verbal Notification: Recipient Understood Notice: Yes Recipient Signature: Yes Med Rec Note Co-signed by Attending: Coverage Notice Comment: IMM explained, signed, given, copy placed in MR Reviewer: [id number] Noemy Jennifer Ray Notice Issued Date-Time: 05/16/2019 10:56 Notice Type: Patient Choice Letter Notice Delivered To: Patient Relationship to Patient: Electronic System Engineer Name: Delivery Method: HAND - Hand Delivered Anita Days: Prior Verbal Notification: Recipient Understood Notice: Yes Recipient Signature: Yes Med Rec Note Co-signed by Attending: Coverage Notice Comment: AKIL for refusal of home health Last DP export: 05/12/19 3:37 p Patient Name: RAFAEL BRANNON Page [id number] at 1105 All edits/amendments must be made on the electronic document DICTATION DATE: 05/16/191103 BUS STEWARD: MELANY 05/16/191103 RPT#: [id number] DC DATE: STATUS: ADM IN [facility] [address] [place] [address] END OF REPORT
--- NOTE | 2019-05-17 16:06 | MORECARE ---
CASE MANAGEMENT DISCHARGE SUMMARY PATIENT: RAFAEL BRANNON MARICEL UNIT: [id number] ADM DATE: 05/09/19 AGE: 44 : 75 SEX: F ROOM/BED: D.2238 AUTHOR: ROBERTO CRISTOBAL PHYSICIAN: REFERRING PHYSICIAN: SHADE VENEGAS MD DATE OF SERVICE: 05/17/19 Discharge Plan Patient Name: RAFAEL BRANNON Facility: [facility]:[place] : 1975 Planned Disposition: Home Anticipated Discharge Date: 05/11/19 Discharge Date: 05/16/2019 Expected LOS: 2 Initial Reviewer: [email or web address] Initial Review Date: 05/09/2019 Generated: 05/17/19 5:05 pm Comments DCP- Discharge Planning Updated by [email or web address]: Jennifer Marieroldan on 05/16/19 9:[address] Received discharge order. She declines home health, refusal signed. at bedside. She declines need for DME. Home today, to transport. DCP- Discharge Planning Updated by [email or web address]: Krista Sanchez on 05/12/19 3:[address] [facility] WITH TRANSFER CENTER STATED THAT [facility] WANTED DR VENEGAS TO DO IV ABX AND IVF AND SUPORTIVE CARE. THAT COLONOSCOPY IS NOT FIRST LINE OF TREATMENT AND TO CALL BACK NEXT WEEK IF NOT BETTER. DCP- Discharge Planning Updated by [email or web address]: Jenniferliseth Bell on 05/12/19 11:[address] Patient states she will notify her family whenever discharge disposition has been confirmed, she is ok with transfer to [facility] if accepted. CM will continue to follow and assist with discharge planning/needs. DCP- Discharge Planning Updated by [email or web address]: Jennifer Bell on 05/12/19 10:[address] Received order for discharge to another facility for GI coverage. I spoke with the patient, she has no preference of hospital transferring to. I called the transfer team and spoke with Rafal. Facesheet faxed per request. Rafal states they will begin with [facility] in [place]. CM will continue to follow and assist with discharge planning/needs. DCP- Discharge Planning Updated by [email or web address]: Isamar Bermudez on 05/09/19 6:[address] Patient Name: RAFAEL BRANNON Admission Status: ER Accout number: [id number] Admission Date: 05-09-2019 : 1975 Admission Diagnosis: Attending: SHADE VENEGAS Current LOS: 1 Anticipated DC Date: 05-11-2019 Planned Disposition: Home Primary Insurance: MEDICARE A & B Discharge Planning Comments: DC PLAN: Return home with her independently. ANTICIPATED DC NEEDS: Denied known dc needs during initial assessment. CM met with patient and her , Jaylen to complete initial dc planning assessment. CM educated patient on the CM role and verbal consent given by patient to complete assessment. CM verified patient's address, phone number, and emergency contact phone numbers. Patient lives at home with her and reports she is independent in her care at home. At discharge patient plans to return home and feels this is a safe discharge. CM discussed availability of home health, rehab services, and medical equipment. Patient denied known discharge needs at this time. Patient reports her will transport him/her home at time of discharge. CM will continue to follow and will assist as needed with dc plans/needs. Decorative Greens Cutter: Isamar Bermudez RN, [facility] DCPIA - Discharge Planning Initial Assessment Updated by [email or web address]: Isamar Bermudez on 05/09/19 6:57 pm * Is the patient Alert and Oriented? Yes * PCP Dr. Pena * Pharmacy [facility] * Preadmission Environment Home with Family * ADLs Independent * Equipment Bedside Commode Cane Rolling Walker Tub Bench Wheelchair * List name and contact numbers for known caregivers / representatives who currently or will assist patient after discharge: Jaylen Brannon - - [phone] * Verbal permission to speak to the caregivers and representatives has been obtained from the patient. Yes * Community resources currently utilized None * Additional services required to return to the preadmission environment? No * Can the patient safely return to the preadmission environment? Yes * Has this patient been hospitalized within the prior 30 days at any hospital? Yes Coverage Notice Reviewer: [email or web address] Noemy Bell Notice Issued Date-Time: 05/16/2019 9:00 Notice Type: IM Discharge Notice Notice Delivered To: Patient Relationship to Patient: Self Cash Applications Representative Name: Delivery Method: HAND - Hand Delivered Anita Days: Prior Verbal Notification: Recipient Understood Notice: Yes Recipient Signature: Yes Med Rec Note Co-signed by Attending: Coverage Notice Comment: IMM explained, signed, given, copy placed in MR Reviewer: [id number] Noemy Jennifer Ray Notice Issued Date-Time: 05/16/2019 10:56 Notice Type: Patient Choice Letter Notice Delivered To: Patient Relationship to Patient: Cash Applications Representative Name: Delivery Method: HAND - Hand Delivered Anita Days: Prior Verbal Notification: Recipient Understood Notice: Yes Recipient Signature: Yes Med Rec Note Co-signed by Attending: Coverage Notice Comment: AKIL for refusal of home health Last DP export: 05/16/19 10:05 am Patient Name: RAFAEL BRANNON Page [id number] at 1606 All edits/amendments must be made on the electronic document DICTATION DATE: 05/17/19 160 STATIONARY ENGINEER APPRENTICE: MELANY 05/17/19 160 RPT#: [id number] DC DATE:05/16/19 STATUS: DIS IN [facility] [address] [place] [address] END OF REPORT
[2019-05-23 20:06] LABS: OVA + PARASITE EXAM Final report (())
== END 2019-05-16 11:54 | disposition home or self-care (01) | DRG 392 ==
LOC: D.ER 16:10 → D.MS 18:14
PROVIDERS: Family Medicine; ADMIT Internal Medicine Nephrology; ATTEND Internal Medicine Nephrology
DX: K52.89 Other specified noninfective gastroenteritis and colitis (principal); E11.43 Type 2 diabetes mellitus with diabetic autonomic (poly)neuropathy; K21.9 Gastro-esophageal reflux disease without esophagitis; E11.65 Type 2 diabetes mellitus with hyperglycemia; I10 Essential (primary) hypertension; J44.9 Chronic obstructive pulmonary disease, unspecified; J45.909 Unspecified asthma, uncomplicated; G35 Multiple sclerosis; G62.9 Polyneuropathy, unspecified; K31.84 Gastroparesis; Z98.84 Bariatric surgery status

== ENCOUNTER 2019-05-27 04:59 | Emergency (ER) | payer MEDICARE ==
[~2019-05-27] VITALS: Ht 162.6 cm; Wt 59.1 kg
[~2019-05-27 04:59] MED LIST changes: +FLAGYL 500500 MG/100 IV; +FLAGYL500 MG PO; +LEVAQUIN750 MG PO; +LEVOFLOXAC750 MG/150 IV
[2019-05-27 05:13] VITALS: Ht 162.6 cm; Wt 59.1 kg
[2019-05-27 06:27] LABS: APPEARANCE CLEAR (CLEAR); BILIRUBIN NEGATIVE (NEGATIVE); COLOR YELLOW (YELLOW); GLUCOSE NEGATIVE (NEGATIVE); KETONE NEGATIVE (NEGATIVE); NITRITE NEGATIVE (NEGATIVE); PROTEIN NEGATIVE (NEGATIVE); UROBILINOGEN NORMAL (NORMAL)
[2019-05-27 06:28] LABS: EPITHELIAL CELLS 0-5 /hpf (0-5); RED CELLS - URINE 0-5 /hpf (0-5)
[2019-05-27 06:29] LABS: BACTERIA MODERATE /hpf (NONE SEEN)
[2019-05-27 06:29] LABS: BASOPHILS 0.4 % (0-2); EOSINOPHILS 2.2 % (0-7); HEMATOCRIT 32.5 % (36.0-48.0); HEMOGLOBIN 10.4 g/dL (12-16); IMMATURE GRANULOCYTES 0.7 % (0-5); LYMPHOCYTES 23.5 % (15-50); MCH 27.3 pg (26.0-34.0); MCV 85.3 fL (80.0-100.0); MEAN PLATELET VOLUME 10.6 fL (7.4-10.4); MONOCYTES 7.9 % (2-11); NEUTROPHILS 65.3 % (40-80); PLATELET COUNT 196 10x3/uL (130-400); RBC 3.81 10x6/uL (4.00-5.40); RDW 15.2 % (11.5-14.5); WBC 4.6 10x3/uL (4.8-10.8)
[2019-05-27 06:40] LABS: ALBUMIN 2.9 g/dL (3.4-5.0); ALKALINE PHOSPHATASE 81 U/L (46-116); ALT (SGPT) 12 U/L (10-68); AMYLASE - SERUM 76 U/L (25-115); BILIRUBIN - TOTAL 0.17 mg/dL (0.2-1.3); CALC OSMOLALITY 291 mosm/kg (275-300); CALCIUM 8.8 mg/dL (8.5-10.1); CARBON DIOXIDE 24.2 mmol/L (21.0-32.0); CHLORIDE - SERUM 111 mmol/L (98-107); CREATININE - SERUM 0.6 mg/dL (0.6-1.3); GLUCOSE 112 mg/dL (74-106); LIPASE 242 U/L (73-393); POTASSIUM - SERUM 3.4 mmol/L (3.5-5.1); PROTEIN - SERUM 6.2 g/dL (6.4-8.2); SODIUM 143 mmol/L (136-145); UREA NITROGEN 29 mg/dL (7-18); eGFR NON AFRICAN AMERICAN > 90 mL/min (90-120)
[2019-05-27] MEDS ORDERED: MACROBID100 MG PO (07:04)
[2019-05-27 08:55] VITALS: BP 162/90
== END 2019-05-27 08:56 | disposition home or self-care (01) ==
LOC: D.ER 04:59
PROVIDERS: Family Medicine
DX: N39.0 Urinary tract infection, site not specified (principal); R10.9 Unspecified abdominal pain; I10 Essential (primary) hypertension; E11.9 Type 2 diabetes mellitus without complications

== ENCOUNTER 2019-05-27 15:12 | Emergency (ER) | payer MEDICARE ==
[~2019-05-27] VITALS: Ht 162.6 cm; Wt 59.1 kg
[~2019-05-27 15:12] MED LIST changes: +MACROBID100 MG PO
[2019-05-27 15:23] VITALS: Ht 162.6 cm; Wt 59.1 kg
[2019-05-27 16:40] VITALS: BP 167/102
== END 2019-05-27 16:40 | disposition home or self-care (01) ==
LOC: D.ER 15:12
DX: R10.9 Unspecified abdominal pain (principal); G35 Multiple sclerosis; E11.9 Type 2 diabetes mellitus without complications; I10 Essential (primary) hypertension; J44.9 Chronic obstructive pulmonary disease, unspecified

== ENCOUNTER 2019-05-29 13:03 | Emergency (ER) | payer MEDICARE ==
[~2019-05-29] VITALS: Ht 162.6 cm; Wt 59.1 kg
[2019-05-29 13:07] VITALS: Ht 162.6 cm; Wt 59.1 kg
[2019-05-29 13:43] LABS: APPEARANCE HAZY (CLEAR); BILIRUBIN NEGATIVE (NEGATIVE); COLOR YELLOW (YELLOW); GLUCOSE NEGATIVE (NEGATIVE); KETONE NEGATIVE (NEGATIVE); NITRITE NEGATIVE (NEGATIVE); PROTEIN TRACE mg/dL (NEGATIVE); UROBILINOGEN NORMAL (NORMAL)
[2019-05-29 13:44] LABS: BACTERIA MANY /hpf (NONE SEEN); RED CELLS - URINE 0-5 /hpf (0-5); WHITE CELLS - URINE 0-5 /hpf (0-5)
[2019-05-29 13:55] LABS: BASOPHILS 0.3 % (0-2); HEMATOCRIT 35.1 % (36.0-48.0); HEMOGLOBIN 11.6 g/dL (12-16); IMMATURE GRANULOCYTES 0.2 % (0-5); LYMPHOCYTES 15.1 % (15-50); MCH 27.9 pg (26.0-34.0); MCV 84.4 fL (80.0-100.0); MEAN PLATELET VOLUME 10.7 fL (7.4-10.4); MONOCYTES 3.3 % (2-11); NEUTROPHILS 80.1 % (40-80); RBC 4.16 10x6/uL (4.00-5.40); WBC 9.9 10x3/uL (4.8-10.8)
[2019-05-29 13:59] LABS: PLATELET COUNT 277 10x3/uL (130-400)
[2019-05-29 14:12] LABS: ALBUMIN 3.1 g/dL (3.4-5.0); ALKALINE PHOSPHATASE 79 U/L (46-116); ALT (SGPT) 19 U/L (10-68); BILIRUBIN - TOTAL 0.25 mg/dL (0.2-1.3); CALC OSMOLALITY 285 mosm/kg (275-300); CALCIUM 9.1 mg/dL (8.5-10.1); CARBON DIOXIDE 26.3 mmol/L (21.0-32.0); CHLORIDE - SERUM 105 mmol/L (98-107); CREATININE - SERUM 0.9 mg/dL (0.6-1.3); GLUCOSE 87 mg/dL (74-106); POTASSIUM - SERUM 3.9 mmol/L (3.5-5.1); PROTEIN - SERUM 6.2 g/dL (6.4-8.2); SODIUM 142 mmol/L (136-145); UREA NITROGEN 23 mg/dL (7-18); eGFR NON AFRICAN AMERICAN 72 mL/min (90-120)
[2019-05-29 14:15] LABS: AMYLASE - SERUM 38 U/L (25-115); LIPASE 56 U/L (73-393); TROPONIN-I < 0.017 ng/mL (0.000-0.060)
[2019-05-29] MEDS ORDERED: CHRONULAC30 ML PO (17:56)
[2019-05-29 19:15] VITALS: BP 164/88
== END 2019-05-29 19:15 | disposition home or self-care (01) ==
LOC: D.ER 13:03
PROVIDERS: Family Medicine
DX: R10.9 Unspecified abdominal pain (principal); R11.2 Nausea with vomiting, unspecified; K59.00 Constipation, unspecified; I10 Essential (primary) hypertension

== ENCOUNTER 2019-05-31 06:07 | Day surgery (SDC) | payer MEDICARE ==
[~2019-05-31] VITALS: Ht 162.6 cm; Wt 59.1 kg
[~2019-05-31 06:07] MED LIST changes: +CHRONULAC30 ML PO
[2019-05-31 06:39] LABS: HEMATOCRIT 34.3 % (36.0-48.0); MCH 27.6 pg (26.0-34.0); MCHC 32.1 g/dL (31.0-37.0); MCV 86.2 fL (80.0-100.0); MEAN PLATELET VOLUME 10.5 fL (7.4-10.4); RBC 3.98 10x6/uL (4.00-5.40); RDW 14.9 % (11.5-14.5)
[2019-05-31] MEDS ORDERED: FLAGYL500 MG PO (06:58)
[2019-05-31] MEDS ORDERED: PERCOCET 10-321 EAC1 PO (06:58)
[2019-05-31 07:01] VITALS: Ht 162.6 cm; Wt 59.1 kg
--- NOTE | 2019-05-31 07:08 | NUR ---
INFUSAPORT ACCESSED, 20 GAUGE, 0.75 MUNOZ NEEDLE. POSITIVE FOR BLOOD RETURN, STERILE TECHNIQUE USED.
[2019-05-31 07:12] LABS: WBC 5.8 10x3/uL (4.8-10.8)
[2019-05-31 07:26] LABS: CALC OSMOLALITY 289 mosm/kg (275-300); CALCIUM 8.3 mg/dL (8.5-10.1); CARBON DIOXIDE 28.9 mmol/L (21.0-32.0); CHLORIDE - SERUM 109 mmol/L (98-107); CREATININE - SERUM 0.7 mg/dL (0.6-1.3); GLUCOSE 79 mg/dL (74-106); POTASSIUM - SERUM 3.5 mmol/L (3.5-5.1); SODIUM 145 mmol/L (136-145); UREA NITROGEN 19 mg/dL (7-18); eGFR NON AFRICAN AMERICAN > 90 mL/min (90-120)
[2019-05-31 08:49] LABS: HCG SERUM NEGATIVE (NEGATIVE)
[2019-05-31] MEDS ORDERED: GOLYTELY SOLU4000 ML PO (10:01)
--- NOTE | 2019-05-31 11:51 | NUR ---
114 DR. STEELE NOTIFIED OF PT. CONTINUES WITH C/O ABD PAIN RATED 7/10 AND REPORTS NOT PASSING FLATUS. AND I ASKED HIM WHAT TO DO ABOUT THE INFILTRATED PORT. DR. STEELE STATES THIS PT. HAS CHRONIC ABD PAIN AND THE PAIN IS NOT UNUSUAL AND THE PORT WILL IS TO BE DEACCESSED AND SHE IS TO HAVE FLUSHED IN ONE WEEK.
--- NOTE | 2019-05-31 15:10 | NUR ---
1500 DR. STEELE RE-PAGED, NO RESPONSE OF YET FROM PREVIOUS PAGE.
--- NOTE | 2019-05-31 16:12 | NUR ---
1529 DR. STEELE RETURNED CALL, REPORT GIVEN, DR. STEELE DOES NOT WANT AN XRAY, ORDERS RECEIVED, PT. INFORMED.
== END 2019-05-31 16:10 | disposition home or self-care (01) ==
LOC: D.OPS 06:07
PROVIDERS: Anesthesiology; ATTEND Surgery
DX: K52.9 Noninfective gastroenteritis and colitis, unspecified (principal); R10.9 Unspecified abdominal pain; G89.29 Other chronic pain

== ENCOUNTER 2019-06-01 22:25 | Emergency (ER) | payer MEDICARE ==
[~2019-06-01] VITALS: Ht 162.6 cm; Wt 59.1 kg
[~2019-06-01 22:25] MED LIST changes: +GOLYTELY SOLU4000 ML PO
[2019-06-01 22:30] VITALS: Ht 162.6 cm; Wt 59.1 kg
[2019-06-01 22:50] LABS: APPEARANCE HAZY (CLEAR); BILIRUBIN NEGATIVE (NEGATIVE); COLOR YELLOW (YELLOW); GLUCOSE NEGATIVE (NEGATIVE); KETONE NEGATIVE (NEGATIVE); NITRITE NEGATIVE (NEGATIVE); PROTEIN 1+ mg/dL (NEGATIVE); UROBILINOGEN NORMAL (NORMAL)
[2019-06-01 22:52] LABS: BACTERIA MODERATE /hpf (NEGATIVE); EPITHELIAL CELLS 0-5 /hpf (0-5); WHITE CELLS - URINE 25-50 /hpf (NEGATIVE)
[2019-06-01 23:01] LABS: BASOPHILS 0.2 % (0-2); EOSINOPHILS 1.5 % (0-7); HEMATOCRIT 32.3 % (36.0-48.0); HEMOGLOBIN 10.7 g/dL (12-16); IMMATURE GRANULOCYTES 0.2 % (0-5); LYMPHOCYTES 16.5 % (15-50); MCH 28.1 pg (26.0-34.0); MCHC 33.1 g/dL (31.0-37.0); MCV 84.8 fL (80.0-100.0); MEAN PLATELET VOLUME 10.3 fL (7.4-10.4); MONOCYTES 4.9 % (2-11); NEUTROPHILS 76.7 % (40-80); PLATELET COUNT 250 10x3/uL (130-400); RBC 3.81 10x6/uL (4.00-5.40); RDW 14.8 % (11.5-14.5)
[2019-06-01 23:02] LABS: WBC 9.8 10x3/uL (4.8-10.8)
[2019-06-01 23:24] LABS: ALBUMIN 2.8 g/dL (3.4-5.0); ALKALINE PHOSPHATASE 94 U/L (46-116); ALT (SGPT) 14 U/L (10-68); BILIRUBIN - TOTAL 0.19 mg/dL (0.2-1.3); CALC OSMOLALITY 286 mosm/kg (275-300); CALCIUM 8.1 mg/dL (8.5-10.1); CHLORIDE - SERUM 108 mmol/L (98-107); CREATININE - SERUM 0.6 mg/dL (0.6-1.3); PROTEIN - SERUM 5.6 g/dL (6.4-8.2); SODIUM 144 mmol/L (136-145); UREA NITROGEN 17 mg/dL (7-18); eGFR NON AFRICAN AMERICAN > 90 mL/min (90-120)
[2019-06-01 23:26] LABS: GLUCOSE 59 mg/dL (74-106)
[2019-06-01 23:28] LABS: AMYLASE - SERUM 43 U/L (25-115); LIPASE 140 U/L (73-393)
[2019-06-01 23:31] LABS: TROPONIN-I < 0.017 ng/mL (0.000-0.060)
[2019-06-02] MEDS ORDERED: OMNICEF300 MG PO (01:33)
[2019-06-02 01:45] VITALS: BP 149/91
== END 2019-06-02 01:46 | disposition home or self-care (01) ==
LOC: D.ER 22:25
PROVIDERS: Family Medicine
DX: N39.0 Urinary tract infection, site not specified (principal); R10.9 Unspecified abdominal pain

== ENCOUNTER 2019-06-03 12:53 | Inpatient (IN) | payer MEDICARE ==
[~2019-06-03] VITALS: Ht 162.6 cm; Wt 59.0 kg
[~2019-06-03 12:53] MED LIST changes: +OMNICEF300 MG PO
[2019-06-03 16:00] VITALS: BP 180/105; BMI 22.3
[2019-06-03 20:00] VITALS: BP 159/113
[2019-06-04] VITALS: BP 158/89
[2019-06-04 04:00] VITALS: BP 153/103
[2019-06-04 06:33] LABS: HEMATOCRIT 23.3 % (36.0-48.0); MCH 27.5 pg (26.0-34.0); MCHC 32.2 g/dL (31.0-37.0); MCV 85.3 fL (80.0-100.0); MEAN PLATELET VOLUME 10.8 fL (7.4-10.4); RBC 2.73 10x6/uL (4.00-5.40); RDW 14.8 % (11.5-14.5); WBC 2.9 10x3/uL (4.8-10.8)
[2019-06-04 06:36] LABS: PLATELET COUNT 157 10x3/uL (130-400)
[2019-06-04 06:37] LABS: HEMOGLOBIN 7.5 g/dL (12-16)
--- NOTE | 2019-06-04 06:57 | NUR ---
CALLED [facility] [address] LAGUNAS. ORDERED 2 UNITS PRBC'S TO BE TRANSFUSED.
[2019-06-04 07:00] LABS: INR 1.36 (0.85-1.17); PROTIME 16.2 SECONDS (11.6-15.0)
[2019-06-04 07:03] LABS: ALBUMIN 1.4 g/dL (3.4-5.0); ALKALINE PHOSPHATASE 49 U/L (46-116); ALT (SGPT) 8 U/L (10-68); BILIRUBIN - TOTAL 0.21 mg/dL (0.2-1.3); CARBON DIOXIDE 20.6 mmol/L (21.0-32.0); CREATININE - SERUM 0.2 mg/dL (0.6-1.3); PHOSPHOROUS 2.3 mg/dL (2.5-4.9); PROTEIN - SERUM 3.2 g/dL (6.4-8.2); SODIUM 149 mmol/L (136-145); UREA NITROGEN 5 mg/dL (7-18); eGFR NON AFRICAN AMERICAN > 90 mL/min (90-120)
[2019-06-04 07:04] LABS: CALC OSMOLALITY 290 mosm/kg (275-300); GLUCOSE 54 mg/dL (74-106); MAGNESIUM - SERUM 0.8 mg/dL (1.8-2.4)
[2019-06-04 07:05] LABS: CALCIUM 5.1 mg/dL (8.5-10.1); CHLORIDE - SERUM 119 mmol/L (98-107); POTASSIUM - SERUM 2.3 mmol/L (3.5-5.1)
[2019-06-04 08:21] VITALS: BP 154/97
--- NOTE | 2019-06-04 08:38 | NUR ---
PT ALERT X 4. BREATH SOUNDS CLEAR BILAT. BOWEL SOUNDS HYPERACTIVE X 4, ABDOMEN TENDER. IV TO LEFT WRIST, PATENT, DRESSING CDI. PT REPORTING PAIN OF 3/10, ADVERTISING SALES ASSISTANT IN USE, WILL MONITOR. DISCUSSED ELECTROLYTE REPLACEMENT AND BLOOD ADMINISTRATION WITH PT. BED LOW, CALL LIGHT IN PLACE. NO OTHER NEEDS AT THIS TIME.
[2019-06-04 09:02] LABS: BASOPHILS 2 % (0-2); EOSINOPHILS 4 % (0-7); LYMPHOCYTES 48 % (15-50); MONOCYTES 3 % (2-11); NEUTROPHILS 43 % (40-80); PLATELET ESTIMATE NORMAL
[2019-06-04 16:48] VITALS: BP 148/109
[2019-06-04 21:00] VITALS: BP 191/115
[2019-06-04 21:30] VITALS: BP 160/110
[2019-06-05 01:33] VITALS: BP 157/111
[2019-06-05 06:44] LABS: BASOPHILS 0.5 % (0-2); EOSINOPHILS 4.2 % (0-7); IMMATURE GRANULOCYTES 0.2 % (0-5); LYMPHOCYTES 45.3 % (15-50); MCH 27.6 pg (26.0-34.0); MCHC 33.1 g/dL (31.0-37.0); MONOCYTES 9.2 % (2-11); NEUTROPHILS 40.6 % (40-80); RDW 14.8 % (11.5-14.5)
[2019-06-05 06:49] LABS: HEMATOCRIT 36.2 % (36.0-48.0); MCV 83.2 fL (80.0-100.0); PLATELET COUNT 213 10x3/uL (130-400); RBC 4.35 10x6/uL (4.00-5.40)
[2019-06-05 07:19] LABS: CHLORIDE - SERUM 105 mmol/L (98-107); GLUCOSE 75 mg/dL (74-106); SODIUM 142 mmol/L (136-145)
[2019-06-05 07:20] LABS: CALC OSMOLALITY 279 mosm/kg (275-300); CALCIUM 8.7 mg/dL (8.5-10.1); CARBON DIOXIDE 30.9 mmol/L (21.0-32.0); CREATININE - SERUM 0.5 mg/dL (0.6-1.3); MAGNESIUM - SERUM 1.8 mg/dL (1.8-2.4); POTASSIUM - SERUM 4.2 mmol/L (3.5-5.1); UREA NITROGEN 7 mg/dL (7-18); eGFR NON AFRICAN AMERICAN > 90 mL/min (90-120)
--- NOTE | 2019-06-05 07:25 | NUR ---
ALERT AND ORIENTED, RESTING IN BED. NO C/O PAIN. NO S/S OF ACUTE DISTRESS NOTED. POSSIBLE SURGERY TODAY. LEFT CHEST PORT, NS INFUSING @ 125ML/HR. SITE PATENT WITHOUT REDNESS OR SWELLING. MORPHINE MOLD CAPPER HELPER MANAGING PAIN AT THIS TIME. PT DENIES ANY NEEDS AT THIS TIME. CALL LIGHT IN REACH. WILL CONTINUE TO MONITOR.
--- NOTE | 2019-06-05 10:48 | NUR ---
I have reviewed this patient and I concur with the Shift Assessment completed by the Licensed Practical Nurse today this shift.
[2019-06-05 12:03] VITALS: BP 182/112
[2019-06-05 13:22] VITALS: Ht 162.6 cm; Wt 59.0 kg
[2019-06-05 16:12] VITALS: BP 163/89
--- NOTE | 2019-06-05 16:14 | NUR ---
RECEIVED PT FROM RECOVERY, VITALS STABLE. ALERT AND ORIENTED. NO C/O PAIN. NO S/S OF ACUTE DISTRESS NOTED. INCISION TO ABDOMEN, DRESSING C/D/I. PT DENIES ANY NEEDS AT THIS TIME. FAMILY AT BEDSIDE. CALL LIGHT IN REACH. WILL CONTINUE TO MONITOR.
--- NOTE | 2019-06-05 19:45 | NUR ---
PT SITTING UP IN BED WITHOUT DISTRESS, AOX4. INCISION TO ABD CDI. LEFT CHEST PORT INFUSING D5LR 40K @ 75, ZOFRAN DRIP AND MORPHINE DIRECTOR MEDICAID. REFUSES SCDS. DENIES NEEDS. CL IN REACH, WILL CTM
[2019-06-05 20:34] VITALS: BP 155/103
[2019-06-06 00:42] VITALS: BP 150/108
[2019-06-06 04:32] LABS: BASOPHILS 0.1 % (0-2); EOSINOPHILS 0 % (0-7); HEMATOCRIT 38.7 % (36.0-48.0); HEMOGLOBIN 12.9 g/dL (12-16); IMMATURE GRANULOCYTES 0.4 % (0-5); LYMPHOCYTES 6.4 % (15-50); MCHC 33.3 g/dL (31.0-37.0); MCV 84.1 fL (80.0-100.0); MEAN PLATELET VOLUME 11.4 fL (7.4-10.4); MONOCYTES 7.4 % (2-11); NEUTROPHILS 85.7 % (40-80); RDW 14.6 % (11.5-14.5)
[2019-06-06 04:42] LABS: WBC 16.1 10x3/uL (4.8-10.8)
[2019-06-06 04:43] LABS: PLATELET COUNT 260 10x3/uL (130-400)
[2019-06-06 04:48] LABS: ANION GAP 17.5 mmol/L (8-16); CALCIUM 8.8 mg/dL (8.5-10.1); CARBON DIOXIDE 24.6 mmol/L (21.0-32.0)
[2019-06-06 04:49] LABS: CREATININE - SERUM 1.1 mg/dL (0.6-1.3); POTASSIUM - SERUM 5.1 mmol/L (3.5-5.1)
[2019-06-06 04:52] VITALS: BP 160/118
[2019-06-06 07:55] VITALS: BP 138/99
--- NOTE | 2019-06-06 07:59 | OP ---
PATIENT NAME: RAFAEL PETTY MEDICAL RECORD: [id number] :[birth year] LOCATION:[facility] ADMISSION DATE:06/03/19 SURGEON: COLLEEN STEELE MD DATE OF OPERATION: 06/05/2019 SURGEON: Colleen Steele MD PREOPERATIVE DIAGNOSES: Small-bowel obstruction, chronic abdominal pain. POSTOPERATIVE DIAGNOSES: Small-bowel obstruction, chronic abdominal pain. PROCEDURE PERFORMED: Exploratory laparotomy, small bowel resection. ANESTHESIA: General. COMPLICATIONS: None. ESTIMATED BLOOD LOSS: 50 cc. SPECIMENS: Small bowel resection. COMPLICATIONS: None. Case was clean contaminated. OPERATIVE COURSE: After consent was obtained, the patient was taken to the operating room and placed in the supine position on the operating table. Next, general anesthesia was given via endotracheal intubation after a timeout was taken to confirm the correct patient and procedure. An upper midline abdominal incision was made from the xiphoid to the navel with a 15-blade scalpel. Dissection then continued through subcutaneous tissue using electrocautery. The fascia was incised using electrocautery. The peritoneum was grasped with Neelima clamps times 2 and incised with Metzenbaum scissors. At this time, remaining portions of the fascia was opened using electrocautery under direct vision. In the abdominal cavity, there was a bowel obstruction, which appeared to be from the ligament of Treitz to the site of the previous feeding jejunostomy tube in the left upper quadrant. The small bowel was resected off the anterior abdominal wall with immediate decompression of the proximal bowel with fluid flowing towards the distal small-bowel. The enterotomy from the fistula was closed in a standard byfl-gy-kfle fashion using the linear VARUN stapler. The common enterotomy was then closed with a second firing linear VARUN stapler. Suture line was imbricated using 3-0 Vicryl suture. The small bowel was then run from the ligament of Treitz to the terminal ileum. There were no additional hernias or adhesions identified. All 4 quadrants of the abdomen was then copiously inspected. As expected, there was dense adhesions in the left upper quadrant at the area of the previous laparoscopic sleeve gastrectomy, otherwise appeared within normal limits. The colon was run from the cecum to the sigmoid colon with no abnormalities identified. At this time, the abdomen was irrigated with 4 liters of warm normal saline. Some Rusty powder was applied into the left upper quadrant. The small bowel was run a second time from the ligament of Treitz to terminal ileum. The gastric anastomosis was widely patent. No evidence of bile injury, no evidence of leak. No evidence of bleeding or oozing. At this time, the fascia was closed with #1 looped PDS. Once complete, the subcutaneous tissue was copiously irrigated and suctioned. The skin was reapproximated and closed with anamaria. The small bowel specimen was sent for OPERATIVE REPORT [id number] RAFAEL PETTY permanent pathology. At the end of the case, all needle and instrument counts were correct. No complications occurred. The patient was extubated and transferred to the PACU in stable condition. TRANSINT:[id number] Voice Confirmation ID: [id number] DOCUMENT ID: [id number] COLLEEN STEELE MD at 0759 CC: [id number] DICTATION DATE: 06/05/19 1516 STEAM SHOVELMAN: 06/06/19 0044 ADM IN [facility] [address] [place] [address]
[2019-06-06 12:11] VITALS: BP 150/94
--- NOTE | 2019-06-06 19:30 | NUR ---
PT SITTING UP IN BED WITHOUT DISTRESS, AOX4. LEFT CHEST PORT INFUSING D5NS @ 150, ZOFRAN DRIP @ 4.7, MORPHINE STUDENT RECORDS COORDINATOR. REFUSES SCDS. UP AD LOUISE TO BATHROOM. INCISION TO ABD OPEN TO AIR, CDI. DENIES NEEDS. CL IN REACH, WILL CTM
[2019-06-06 20:45] VITALS: BP 152/91
[2019-06-07 01:05] VITALS: BP 130/83
[2019-06-07 04:56] VITALS: BP 127/83
[2019-06-07 06:20] LABS: CALCIUM 8.3 mg/dL (8.5-10.1); CHLORIDE - SERUM 108 mmol/L (98-107); GLUCOSE 110 mg/dL (74-106); SODIUM 141 mmol/L (136-145)
[2019-06-07 06:21] LABS: CALC OSMOLALITY 290 mosm/kg (275-300); CREATININE - SERUM 0.7 mg/dL (0.6-1.3); POTASSIUM - SERUM 4.3 mmol/L (3.5-5.1); UREA NITROGEN 38 mg/dL (7-18); eGFR NON AFRICAN AMERICAN > 90 mL/min (90-120)
--- NOTE | 2019-06-07 07:44 | NUR ---
REC'D SITTING ON SIDE OF BED AWAKE AND ALERT. RESP EVEN AND UNLABORED WITH NO DISTRESS NOTED. CAN EXPRESS NEEDS AND WANTS WITH NONE NOTED OR VOICED. ASSESSMENT COMPLETED. C/L IN REACH AT BEDSIDE.
[2019-06-07 08:21] LABS: BASOPHILS 0.2 % (0-2); EOSINOPHILS 0.6 % (0-7); IMMATURE GRANULOCYTES 0.2 % (0-5); LYMPHOCYTES 18.9 % (15-50); MCH 27.1 pg (26.0-34.0); MCHC 31.9 g/dL (31.0-37.0); MEAN PLATELET VOLUME 11.2 fL (7.4-10.4); MONOCYTES 7.8 % (2-11); NEUTROPHILS 72.3 % (40-80); RDW 15.1 % (11.5-14.5)
[2019-06-07 08:22] LABS: RBC 2.73 10x6/uL (4.00-5.40); WBC 6.5 10x3/uL (4.8-10.8)
[2019-06-07 08:23] LABS: HEMATOCRIT 23.2 % (36.0-48.0); HEMOGLOBIN 7.4 g/dL (12-16); PLATELET COUNT 169 10x3/uL (130-400)
--- NOTE | 2019-06-07 08:44 | NUR ---
NUTRITION F/U PT NOW ON CLEAR LIQUID DIET, WILL CONTINUE TO MONITOR DIET ADVANCEMENT. ASSIST WITH NUTRITION SUPPORT IF NEEDED. RD FOLLOWING
[2019-06-07 08:56] VITALS: BP 148/82
--- NOTE | 2019-06-07 09:29 | NUR ---
CALL WAS PLACED TO SUPPORT ARCHITECT MD WHICH WAS DR. LAGUNAS ABOUT PT HGB BEING 7.4 AT THIS TIME. NO NEW ORDERS GIVEN AT THIS TIME. C/L IN REACH AT BEDSIDE.
[2019-06-07 11:54] VITALS: BP 126/83
[2019-06-07 16:06] LABS: HEMATOCRIT 23.2 % (36.0-48.0)
[2019-06-07 16:08] LABS: HEMOGLOBIN 7.5 g/dL (12-16)
--- NOTE | 2019-06-07 16:50 | MORECARE ---
CASE MANAGEMENT DISCHARGE SUMMARY PATIENT: RAFAEL PETTY MARICEL UNIT: [id number] ADM DATE: 06/03/19 AGE: 44 : 75 SEX: F ROOM/BED: D.2222 AUTHOR: ROBERTO CRISTOBAL PHYSICIAN: REFERRING PHYSICIAN: COLLEEN STEELE MD DATE OF SERVICE: 06/07/19 Discharge Plan Patient Name: RAFAEL PETTY Facility: [facility]:[place] : 1975 Planned Disposition: Home Anticipated Discharge Date: Discharge Date: Expected LOS: Initial Reviewer: [email or web address] Initial Review Date: 06/07/2019 Generated: 06/07/19 5:50 pm Patient Name: RAFAEL PETTY Page [id number] at 1650 All edits/amendments must be made on the electronic document DICTATION DATE: 06/07/191649 WHEEL ROLLER: MELANY 06/07/191649 RPT#: [id number] DC DATE: STATUS: ADM IN [facility] [address] [place] [address] END OF REPORT
--- NOTE | 2019-06-07 17:00 | MORECARE ---
CASE MANAGEMENT DISCHARGE SUMMARY PATIENT: RAFAEL PETTY MARICEL UNIT: [id number] ADM DATE: 06/03/19 AGE: 44 : 75 SEX: F ROOM/BED: D.2222 AUTHOR: ROBERTO CRISTOBAL PHYSICIAN: REFERRING PHYSICIAN: COLLEEN STEELE MD DATE OF SERVICE: 06/07/19 Discharge Plan Patient Name: RAFAEL PETTY Facility: [facility]:[place] : 1975 Planned Disposition: Home Anticipated Discharge Date: Discharge Date: Expected LOS: Initial Reviewer: [email or web address] Initial Review Date: 06/07/2019 Generated: 06/07/19 6:00 pm Comments DCP- Discharge Planning Updated by [email or web address]: Jennifer Bell on 06/07/19 3:[address] Patient is sleeping. I will meet with her tomorrow for discharge planning/needs. Last DP export: 06/07/19 3:50 p Patient Name: RAFAEL PETTY Page [phone] at 1700 All edits/amendments must be made on the electronic document DICTATION DATE: 06/07/19 170 REVENUE FIELD AUDITOR: MELANY 06/07/191699 RPT#: [id number] DC DATE: STATUS: ADM IN [facility] [address] [place] [address] END OF REPORT
[2019-06-07 17:28] VITALS: BP 116/73
[2019-06-07 20:55] VITALS: BP 124/91
[2019-06-08 01:10] VITALS: BP 127/85
[2019-06-08 05:41] LABS: CALC OSMOLALITY 284 mosm/kg (275-300); CALCIUM 7.9 mg/dL (8.5-10.1); CARBON DIOXIDE 27.6 mmol/L (21.0-32.0); CHLORIDE - SERUM 108 mmol/L (98-107); CREATININE - SERUM 0.6 mg/dL (0.6-1.3); GLUCOSE 106 mg/dL (74-106); POTASSIUM - SERUM 3.7 mmol/L (3.5-5.1); SODIUM 142 mmol/L (136-145); eGFR NON AFRICAN AMERICAN > 90 mL/min (90-120)
[2019-06-08 05:42] LABS: UREA NITROGEN 17 mg/dL (7-18)
[2019-06-08 05:56] VITALS: BP 116/76
[2019-06-08 06:09] LABS: BASOPHILS 0 % (0-2); IMMATURE GRANULOCYTES 0.2 % (0-5); LYMPHOCYTES 18.8 % (15-50); MCH 27.5 pg (26.0-34.0); MCHC 32.2 g/dL (31.0-37.0); MCV 85.4 fL (80.0-100.0); MEAN PLATELET VOLUME 10.7 fL (7.4-10.4); MONOCYTES 6.3 % (2-11); NEUTROPHILS 71.7 % (40-80); RBC 2.33 10x6/uL (4.00-5.40); RDW 15.1 % (11.5-14.5)
[2019-06-08 06:21] LABS: HEMATOCRIT 19.9 % (36.0-48.0); HEMOGLOBIN 6.4 g/dL (12-16); PLATELET COUNT 126 10x3/uL (130-400); WBC 4.3 10x3/uL (4.8-10.8)
--- NOTE | 2019-06-08 06:50 | NUR ---
HEMATOCRIT 19.9 CRITICAL LOW HEMOGLOBEN 6.4 CRITICAL LOW CALL TO DR. STEELE AWATTING CALL BACK.
--- NOTE | 2019-06-08 06:57 | NUR ---
dR. Govea TECHNOLOGY ASSISTANT RETRUNED CALL STATED TO PASCUAL STEELE GETS HERE TO SEE.
--- NOTE | 2019-06-08 07:40 | NUR ---
ALERT AND ORIENTED. LUNGS CLEAR BILATERALLY IN ALL HERNANDEZ. HEART SOUNDS S1 AND S2 HEARD IN ALL HERNANDEZ. BOWEL SOUNDS ACTIVE X 4. MIDLINE INCISION INTACT. OLD PEG REMOVAL SITE NOTED. SKIN OTHERWISE INTACT WITHOUT REDNESS. LEFT CHEST PORT PATENT WITHOUT REDNESS. DENIES NEEDS AT THIS TIME. BED LOW. CALL SPICER AND PERSONAL ITEMS IN REACH. WILL CONTINUE TO MONITOR.
[2019-06-08 08:16] VITALS: BP 118/75
--- NOTE | 2019-06-08 08:19 | MORECARE ---
CASE MANAGEMENT DISCHARGE SUMMARY PATIENT: RAFAEL PETTY MARICEL UNIT: [id number] ADM DATE: 06/03/19 AGE: 44 : 75 SEX: F ROOM/BED: D.2222 AUTHOR: ROBERTO CRISTOBAL PHYSICIAN: REFERRING PHYSICIAN: COLLEEN STEELE MD DATE OF SERVICE: 06/08/19 Discharge Plan Patient Name: RAFAEL PETTY Facility: [facility]:[place] : 1975 Planned Disposition: Home Anticipated Discharge Date: Discharge Date: Expected LOS: Initial Reviewer: [email or web address] Initial Review Date: 06/07/2019 Generated: 06/08/19 9:19 am Comments DCP- Discharge Planning Updated by [email or web address]: Jennifer Bell on 06/07/19 3:[address] Patient is sleeping. I will meet with her tomorrow for discharge planning/needs. DCPIA - Discharge Planning Initial Assessment Updated by [email or web address]: Jennifer Bell on 06/08/19 8:15 am * Is the patient Alert and Oriented? Yes * How many steps to enter\exit or inside your home? Ramp/0 * PCP Dr. Pena * Pharmacy [place] * Preadmission Environment Home with Family * ADLs Partial Dependent * Partial ADLs (Assistance needed) Ambulation * Equipment Bedside Commode Cane Elevated Tol[place] Seat Rolling Walker Tub Bench Wheelchair * List name and contact numbers for known caregivers / representatives who currently or will assist patient after discharge: [facility] - [phone] * Verbal permission to speak to the caregivers and representatives has been obtained from the patient. Yes * Community resources currently utilized None * Additional services required to return to the preadmission environment? No * Can the patient safely return to the preadmission environment? Yes * Has this patient been hospitalized within the prior 30 days at any hospital? Yes Last DP export: 06/07/19 4:00 p Patient Name: RAFAEL PETTY Page [phone] at 0819 All edits/amendments must be made on the electronic document DICTATION DATE: 06/08/19817 DIRECTOR PHARMACOVIGILANCE: MELANY 06/08/19817 RPT#: [id number] DC DATE: STATUS: ADM IN [facility] [address] [facility] [address] END OF REPORT
--- NOTE | 2019-06-08 09:26 | NUR ---
SPOKE WITH [facility] WHO STATES BLOOD STILL NEEDS TO BE DRAWN FOR PRBC ORDER. SPOKE WITH LAB TO SEE IF NURSE NEEDS TO DRAW BLOOD FROM PORT. STATES WILL SEND SOMEONE FROM LAB DOWN.
--- NOTE | 2019-06-08 09:55 | NUR ---
VITALS STABLE. BLOOD TRANSFUSION UNIT 1 INITIATED. WILL CONTINUE TO MONITOR.
--- NOTE | 2019-06-08 10:09 | NUR ---
BLOOD CONTINUES INFUSING. VITALS REMAIN STABLE. WILL CONTINUE TO MONITOR.
--- NOTE | 2019-06-08 10:34 | NUR ---
RESTING IN BED. BLOOD CONTINUES INFUSING. DENIES NEEDS. WILL CONTINUE TO MONITOR.
--- NOTE | 2019-06-08 12:40 | NUR ---
BLOOD TRANSFUSION UNIT 2 INITIATED VITALS STABLE.
--- NOTE | 2019-06-08 12:55 | NUR ---
BLOOD CONTINUES INFUSING. VITALS REMAIN STABLE.
--- NOTE | 2019-06-08 13:21 | NUR ---
RESTING IN BED. BLOOD INFUSING. DENIES PAIN. DENIES NEEDS. WILL CONTINUE TO MONITOR.
--- NOTE | 2019-06-08 15:39 | NUR ---
BLOOD TRANSFUSION UNIT 2 COMPLETE. VITALS STABLE. WILL CONTINUE TO MONITOR.
[2019-06-08 21:08] VITALS: BP 136/87
--- NOTE | 2019-06-08 21:58 | NUR ---
Pt in bed with call light in reach. Iv is to left chest port. with D5ns at kvo. tayla and rox able to voice needs and wants to staff. Refused SCD's. Resting in bed with no needs at this time.
[2019-06-09 00:30] VITALS: BP 122/79
[2019-06-09 05:04] VITALS: BP 134/80
[2019-06-09 06:27] LABS: BASOPHILS 0.4 % (0-2); EOSINOPHILS 3.9 % (0-7); IMMATURE GRANULOCYTES 0.2 % (0-5); LYMPHOCYTES 18.7 % (15-50); MCH 29.2 pg (26.0-34.0); MCHC 33.1 g/dL (31.0-37.0); MEAN PLATELET VOLUME 11.2 fL (7.4-10.4); MONOCYTES 7.5 % (2-11); NEUTROPHILS 69.3 % (40-80); PLATELET COUNT 148 10x3/uL (130-400); RDW 14.9 % (11.5-14.5)
[2019-06-09 06:33] LABS: HEMATOCRIT 28.4 % (36.0-48.0); HEMOGLOBIN 9.4 g/dL (12-16); MCV 88.2 fL (80.0-100.0); RBC 3.22 10x6/uL (4.00-5.40); WBC 5.4 10x3/uL (4.8-10.8)
[2019-06-09 06:46] LABS: CALC OSMOLALITY 273 mosm/kg (275-300); CALCIUM 8.1 mg/dL (8.5-10.1); CARBON DIOXIDE 28.5 mmol/L (21.0-32.0); CHLORIDE - SERUM 106 mmol/L (98-107); CREATININE - SERUM 0.5 mg/dL (0.6-1.3); GLUCOSE 80 mg/dL (74-106); POTASSIUM - SERUM 4.1 mmol/L (3.5-5.1); SODIUM 138 mmol/L (136-145); UREA NITROGEN 11 mg/dL (7-18); eGFR NON AFRICAN AMERICAN > 90 mL/min (90-120)
--- NOTE | 2019-06-09 08:00 | NUR ---
ASSESSMENT PER FLOW SHEET. PT IS WITHOUT DISTRESS.PT WANTS PAIN MEDS WHEN TIME. COMPLAINS OF PAIN.BURNING TO ABDOMINAK INCISION. INCISION APROXIMATED WITH KADI AND IS WITHOUT DRAINAGE.MONITOR FOR NEEDS.
--- NOTE | 2019-06-09 08:00 | MORECARE ---
CASE MANAGEMENT DISCHARGE SUMMARY PATIENT: RAFAEL PETTY MARICEL UNIT: [id number] ADM DATE: 06/03/19 AGE: 44 : 75 SEX: F ROOM/BED: D.2222 AUTHOR: LEVAR,DOC PHYSICIAN: REFERRING PHYSICIAN: COLLEEN STEELE MD DATE OF SERVICE: 06/09/19 Discharge Plan Patient Name: RAFAEL PETTY Facility: [facility]:[place] : 1975 Planned Disposition: Home Anticipated Discharge Date: Discharge Date: Expected LOS: Initial Reviewer: [email or web address] Initial Review Date: 06/07/2019 Generated: 06/09/19 8:59 am Comments DCP- Discharge Planning Updated by [email or web address]: Jennifer Bell on 06/08/19 7:[address] Patient Name: RAFAEL PETTY Admission Status: Elective Accout number: [id number] Admission Date: 06-03-2019 : 1975 Admission Diagnosis:UNSP INTESTNL OBST, UNSP TO PARTIAL VERSUS COMPLETE Attending: COLLEEN STEELE Current LOS: 5 Anticipated DC Date: Planned Disposition: Home Primary Insurance: MEDICARE A & B Discharge Planning Comments: CM met with patient to complete initial dc planning assessment. CM educated patient on the CM role and verbal consent given by patient to complete assessment. Patient lives at home with her and 2 children (ages 16 and 19). At discharge patient plans to return and feels this is a safe discharge. CM discussed availability of home health, rehab services, and medical equipment. Patient denied known discharge needs at this time. CM will continue to follow and will assist as needed with dc plans/needs. Stock Control Supervisor: Jennifer Bell DCP- Discharge Planning Updated by [email or web address]: Jennifer Bell on 06/07/19 3:[address] Patient is sleeping. I will meet with her tomorrow for discharge planning/needs. DCPIA - Discharge Planning Initial Assessment Updated by [email or web address]: Jennifer Bell on 06/08/19 8:15 am * Is the patient Alert and Oriented? Yes * How many steps to enter\exit or inside your home? Ramp/0 * PCP Dr. Pena * Pharmacy [place] * Preadmission Environment Home with Family * ADLs Partial Dependent * Partial ADLs (Assistance needed) Ambulation * Equipment Bedside Commode Cane Elevated Tol[place] Seat Rolling Walker Tub Bench Wheelchair * List name and contact numbers for known caregivers / representatives who currently or will assist patient after discharge: Jaylen morales - [phone] * Verbal permission to speak to the caregivers and representatives has been obtained from the patient. Yes * Community resources currently utilized None * Additional services required to return to the preadmission environment? No * Can the patient safely return to the preadmission environment? Yes * Has this patient been hospitalized within the prior 30 days at any hospital? Yes Coverage Notice Reviewer: [email or web address] Noemy Malhotray Ray Notice Issued Date-Time: 06/09/2019 7:56 Notice Type: IM Discharge Notice Notice Delivered To: Patient Relationship to Patient: Self Road Maker Name: Delivery Method: HAND - Hand Delivered Anita Days: Prior Verbal Notification: Recipient Understood Notice: Yes Recipient Signature: Yes Med Rec Note Co-signed by Attending: Coverage Notice Comment: IMM explained, signed, given, copy placed in MR Last DP export: 06/08/19 7:19 a Patient Name: RAFAEL PETTY Page [phone] at 0800 All edits/amendments must be made on the electronic document DICTATION DATE: 06/09/19758 FINE SANDER: MELANY 06/09/19758 RPT#: [id number] DC DATE: STATUS: ADM IN [facility] [address] [place] [address] END OF REPORT
[2019-06-09 08:06] VITALS: BP 134/85
[2019-06-09] MEDS ORDERED: MIRALAX17 GM PO (09:01)
[2019-06-09] MEDS ORDERED: PERCOCET 10-321 EAC1 PO (09:01)
[2019-06-09] MEDS ORDERED: FLORASTOR250 MG PO (09:01)
[2019-06-09] MEDS ORDERED: SULFAMETHOXAZOL1 TA2 PO (09:02)
[2019-06-09 12:56] VITALS: BP 135/86
[2019-06-09 17:07] VITALS: BP 132/83
--- NOTE | 2019-06-09 19:00 | NUR ---
BEDSIDE REPORT RECEIVED AND CARE OF PT ASSUMED. PT LYING IN LOW LAWLER'S POSITION WITH EYES CLOSED. LEFT INFUSAPORT PATENT WITH D5NS INFUSING AT 10 ML/HR. MIDLINE INCISION WELL APPROXIMATED WITH KADI. WILL MONITOR FOR NEEDS.
--- NOTE | 2019-06-09 19:20 | NUR ---
REMAINS WITHOUT DISTRESS.REMAINS WITHOUT CHANGE.CONT PLAN OF CARE
[2019-06-09 20:00] VITALS: BP 130/87
--- NOTE | 2019-06-09 20:27 | NUR ---
HS MEDICATIONS GIVEN TO INCLUDE DILAUDID 1 MG IVP PER PRN ORDER, PER REQUEST FOR PAIN. WILL CONTINUE TO MONITOR FOR NEEDS.
[2019-06-10] VITALS: BP 131/81
--- NOTE | 2019-06-10 02:54 | NUR ---
GAVE DILAUDID 1 MG IVP PER REQUEST FOR PAIN. WILL MONITOR FOR EFFECTIVENESS.
[2019-06-10 04:00] VITALS: BP 111/78
[2019-06-10 06:08] LABS: BASOPHILS 0.2 % (0-2); EOSINOPHILS 2.4 % (0-7); IMMATURE GRANULOCYTES 0.2 % (0-5); MCH 28.3 pg (26.0-34.0); MCHC 32.1 g/dL (31.0-37.0); MCV 88.1 fL (80.0-100.0); MEAN PLATELET VOLUME 11.9 fL (7.4-10.4); MONOCYTES 8.1 % (2-11); NEUTROPHILS 68.1 % (40-80); PLATELET COUNT 151 10x3/uL (130-400); RBC 3.18 10x6/uL (4.00-5.40); RDW 14.8 % (11.5-14.5); WBC 4.7 10x3/uL (4.8-10.8)
[2019-06-10 06:32] LABS: CALC OSMOLALITY 272 mosm/kg (275-300); CALCIUM 8.1 mg/dL (8.5-10.1); CARBON DIOXIDE 29.2 mmol/L (21.0-32.0); CHLORIDE - SERUM 101 mmol/L (98-107); CREATININE - SERUM 0.5 mg/dL (0.6-1.3); GLUCOSE 81 mg/dL (74-106); POTASSIUM - SERUM 4.1 mmol/L (3.5-5.1); SODIUM 138 mmol/L (136-145); eGFR NON AFRICAN AMERICAN > 90 mL/min (90-120)
[2019-06-10 06:33] LABS: UREA NITROGEN 8 mg/dL (7-18)
[2019-06-10 08:46] VITALS: BP 128/88
--- NOTE | 2019-06-10 09:27 | NUR ---
ALERT AND ORIENTED X3 WITH C/O OF INCISIONAL ABDOMINAL PAIN CONTROLLED WITH DILAUDID AND NORCO. BS HYPOACTIVE X4 WITH FLATULANCE NOTED. UP ADLIB WITH ABDOMINAL DRESSING INTACT. ENCOURAGED TO USE CALL LIGHT FOR ASSIST.
[2019-06-10 13:54] VITALS: BP 125/86
[2019-06-10 16:47] VITALS: BP 107/77
--- NOTE | 2019-06-10 19:00 | NUR ---
BEDSIDE REPORT RECEIVED AND CARE OF PT ASSUMED. PT LYING IN HIGH LAWLER'S POSITION WITH EYES CLOSED. LEFT IP PATENT WITH D5NS INFUSING AT 10 ML/HR. WILL MONITOR FOR NEEDS.
[2019-06-10 19:46] VITALS: BP 138/91
--- NOTE | 2019-06-10 20:52 | NUR ---
HS MEDICATIONS GIVEN TO INCLUDE DILAUDID 1 MG IVP PER PRN ORDER, PER REQUEST. WILL CONTINUE TO MONITOR FOR NEEDS.
[2019-06-11] VITALS: BP 127/84
[2019-06-11 04:00] VITALS: BP 105/68
[2019-06-11 06:18] LABS: BASOPHILS 0.2 % (0-2); EOSINOPHILS 3.3 % (0-7); HEMATOCRIT 28.2 % (36.0-48.0); IMMATURE GRANULOCYTES 0.2 % (0-5); LYMPHOCYTES 19.9 % (15-50); MCH 28.4 pg (26.0-34.0); MCHC 31.9 g/dL (31.0-37.0); MEAN PLATELET VOLUME 11.4 fL (7.4-10.4); MONOCYTES 10.3 % (2-11); NEUTROPHILS 66.1 % (40-80); PLATELET COUNT 167 10x3/uL (130-400); RBC 3.17 10x6/uL (4.00-5.40); RDW 14.6 % (11.5-14.5); WBC 4.6 10x3/uL (4.8-10.8)
[2019-06-11 06:33] LABS: CALC OSMOLALITY 272 mosm/kg (275-300); CALCIUM 8.7 mg/dL (8.5-10.1); CARBON DIOXIDE 30.7 mmol/L (21.0-32.0); CHLORIDE - SERUM 101 mmol/L (98-107); CREATININE - SERUM 0.6 mg/dL (0.6-1.3); GLUCOSE 85 mg/dL (74-106); POTASSIUM - SERUM 3.8 mmol/L (3.5-5.1); SODIUM 138 mmol/L (136-145); UREA NITROGEN 6 mg/dL (7-18); eGFR NON AFRICAN AMERICAN > 90 mL/min (90-120)
[2019-06-11 09:06] VITALS: BP 129/79
--- NOTE | 2019-06-11 09:15 | NUR ---
ALERT AND ORIENTED WITH BOWEL SOUNDS NOTED X4. KADI INTACT TO ABDOMEN WITH DRESSING INTACT WIT NO S/S OF INFECTION. HYDROCODONE GIVEN FOR PAIN AND EFFECTIVE. IV TO LEFT INFUSAPORT INFUSING AT PRESCRIBED RATE. ENCOURAGED TO USE CALL LIGHT FOR ASSSIT.
[2019-06-11 12:52] VITALS: BP 124/87
--- NOTE | 2019-06-11 13:41 | NUR ---
CALLED DR CARSON RE DIET DISCHARGE INSTRUCTION. HE ADVISED KRYSTYNA.
--- NOTE | 2019-06-11 14:08 | NUR ---
IV DISCONTINUED FROM PORT.PT. VERBALIZED UNDERSTANDING OF DISCHARGE INSTRUCTIONS AND STABLE AT TIME OF DEPARTURE. LEFT POV WITH ASSSIT OF FAMILY.
--- NOTE | 2019-06-12 08:45 | MORECARE ---
CASE MANAGEMENT DISCHARGE SUMMARY PATIENT: RAFAEL PETTY MARICEL UNIT: [id number] ADM DATE: 06/03/19 AGE: 44 : 75 SEX: F ROOM/BED: D.2222 AUTHOR: LEVAR,DOC PHYSICIAN: REFERRING PHYSICIAN: COLLEEN STEELE MD DATE OF SERVICE: 06/12/19 Discharge Plan Patient Name: RAFAEL PETTY Facility: [facility]:[place] : 1975 Planned Disposition: Home Anticipated Discharge Date: Discharge Date: 06/11/2019 Expected LOS: Initial Reviewer: [email or web address] Initial Review Date: 06/07/2019 Generated: 06/12/19 9:44 am Comments DCP- Discharge Planning Updated by [email or web address]: Jennifer Bell on 06/08/19 7:[address] Patient Name: RAFAEL PETTY Admission Status: Elective Accout number: [id number] Admission Date: 06-03-2019 : 1975 Admission Diagnosis:UNSP INTESTNL OBST, UNSP TO PARTIAL VERSUS COMPLETE Attending: COLLEEN STEELE Current LOS: 5 Anticipated DC Date: Planned Disposition: Home Primary Insurance: MEDICARE A & B Discharge Planning Comments: CM met with patient to complete initial dc planning assessment. CM educated patient on the CM role and verbal consent given by patient to complete assessment. Patient lives at home with her and 2 children (ages 16 and 19). At discharge patient plans to return and feels this is a safe discharge. CM discussed availability of home health, rehab services, and medical equipment. Patient denied known discharge needs at this time. CM will continue to follow and will assist as needed with dc plans/needs. Home Sales Consultant: Jennifer Bell DCP- Discharge Planning Updated by [id number]: Jennifer Bell on 06/07/19 3:[address] Patient is sleeping. I will meet with her tomorrow for discharge planning/needs. DCPIA - Discharge Planning Initial Assessment Updated by [email or web address]: Jennifer Bell on 06/08/19 8:15 am * Is the patient Alert and Oriented? Yes * How many steps to enter\exit or inside your home? Ramp/0 * PCP Dr. Pena * Pharmacy [facility] * Preadmission Environment Home with Family * ADLs Partial Dependent * Partial ADLs (Assistance needed) Ambulation * Equipment Bedside Commode Cane Elevated Tol[place] Seat Rolling Walker Tub Bench Wheelchair * List name and contact numbers for known caregivers / representatives who currently or will assist patient after discharge: Jaylen morales - [phone] * Verbal permission to speak to the caregivers and representatives has been obtained from the patient. Yes * Community resources currently utilized None * Additional services required to return to the preadmission environment? No * Can the patient safely return to the preadmission environment? Yes * Has this patient been hospitalized within the prior 30 days at any hospital? Yes Coverage Notice Reviewer: [id number] Noemy Bell Notice Issued Date-Time: 06/09/2019 7:56 Notice Type: IM Discharge Notice Notice Delivered To: Patient Relationship to Patient: Self Associate Business Analyst Name: Delivery Method: HAND - Hand Delivered Anita Days: Prior Verbal Notification: Recipient Understood Notice: Yes Recipient Signature: Yes Med Rec Note Co-signed by Attending: Coverage Notice Comment: IMM explained, signed, given, copy placed in MR Last DP export: 06/09/19 7:00 a Patient Name: RAFAEL PETTY Page [phone] at 0845 All edits/amendments must be made on the electronic document DICTATION DATE: 06/12/19843 MANAGER ARMY: MELANY 06/12/1944 RPT#: [id number] DC DATE:06/11/19 STATUS: DIS IN [facility] [address] [place] [address] END OF REPORT
== END 2019-06-11 14:10 | disposition home or self-care (01) | DRG 329 ==
LOC: D.MS 12:53
PROVIDERS: Surgery; ADMIT Surgery; ATTEND Surgery
PROC: 0DBA0ZZ Excision of Jejunum, Open Approach (ICD-10-PCS; principal; 2019-06-05 11:45)
DX: K56.609 Unspecified intestinal obstruction, unspecified as to partial versus complete obstruction (principal); E43 Unspecified severe protein-calorie malnutrition; D62 Acute posthemorrhagic anemia; I10 Essential (primary) hypertension; E11.40 Type 2 diabetes mellitus with diabetic neuropathy, unspecified; Z98.84 Bariatric surgery status; G35 Multiple sclerosis

== ENCOUNTER 2019-06-11 22:59 | Emergency (ER) | payer MEDICARE ==
[~2019-06-11] VITALS: Ht 162.6 cm; Wt 59.0 kg
[~2019-06-11 22:59] MED LIST changes: +FLORASTOR250 MG PO; +MIRALAX17 GM PO; +SULFAMETHOXAZOL1 TA2 PO
[2019-06-11 23:00] VITALS: BP 109/61; Ht 162.6 cm; Wt 59.0 kg
[2019-06-11 23:17] LABS: BASOPHILS 0.2 % (0-2); EOSINOPHILS 3.2 % (0-7); HEMATOCRIT 32.2 % (36.0-48.0); HEMOGLOBIN 10.2 g/dL (12-16); IMMATURE GRANULOCYTES 0.2 % (0-5); MCH 28.5 pg (26.0-34.0); MCHC 31.7 g/dL (31.0-37.0); MCV 89.9 fL (80.0-100.0); MEAN PLATELET VOLUME 11.5 fL (7.4-10.4); NEUTROPHILS 69.4 % (40-80); RBC 3.58 10x6/uL (4.00-5.40); RDW 14.5 % (11.5-14.5)
[2019-06-11 23:18] LABS: PLATELET COUNT 220 10x3/uL (130-400); WBC 6.2 10x3/uL (4.8-10.8)
[2019-06-11 23:30] LABS: ALBUMIN 2.5 g/dL (3.4-5.0); ANION GAP 7.8 mmol/L (8-16); BILIRUBIN - TOTAL 0.44 mg/dL (0.2-1.3); CALCIUM 8.5 mg/dL (8.5-10.1); CARBON DIOXIDE 32.5 mmol/L (21.0-32.0); POTASSIUM - SERUM 4.3 mmol/L (3.5-5.1); PROTEIN - SERUM 6.4 g/dL (6.4-8.2)
[2019-06-11 23:31] LABS: INR 1.02 (0.85-1.17); PROTIME 12.9 SECONDS (11.6-15.0)
[2019-06-11 23:32] LABS: APTT 34.8 SECONDS (22.8-39.4); CREATININE - SERUM 0.9 mg/dL (0.6-1.3)
== END 2019-06-12 00:52 | disposition home or self-care (01) ==
LOC: D.ER 22:59
PROVIDERS: Family Medicine
DX: R10.9 Unspecified abdominal pain (principal); K92.2 Gastrointestinal hemorrhage, unspecified; R11.0 Nausea

== ENCOUNTER 2019-06-17 11:51 | Inpatient (IN) | payer MEDICARE ==
[~2019-06-17] VITALS: Ht 162.6 cm; Wt 58.2 kg
[2019-06-17 13:09] LABS: BASOPHILS 0.2 % (0-2); EOSINOPHILS 0.2 % (0-7); HEMATOCRIT 38.7 % (36.0-48.0); HEMOGLOBIN 12.6 g/dL (12-16); IMMATURE GRANULOCYTES 0.6 % (0-5); LYMPHOCYTES 9.6 % (15-50); MCH 28.2 pg (26.0-34.0); MCHC 32.6 g/dL (31.0-37.0); MCV 86.6 fL (80.0-100.0); MEAN PLATELET VOLUME 10.7 fL (7.4-10.4); NEUTROPHILS 87.4 % (40-80); RBC 4.47 10x6/uL (4.00-5.40); RDW 13.9 % (11.5-14.5); WBC 12.5 10x3/uL (4.8-10.8)
[2019-06-17 13:14] LABS: ALBUMIN 3.1 g/dL (3.4-5.0); ALKALINE PHOSPHATASE 115 U/L (46-116); ALT (SGPT) 8 U/L (10-68); BILIRUBIN - TOTAL 0.61 mg/dL (0.2-1.3); C-REACTIVE PROTEIN 2.6 mg/dL (0.0-0.9); CALC OSMOLALITY 271 mosm/kg (275-300); CALCIUM 9.4 mg/dL (8.5-10.1); CARBON DIOXIDE 15.8 mmol/L (21.0-32.0); CHLORIDE - SERUM 99 mmol/L (98-107); CREATININE - SERUM 0.8 mg/dL (0.6-1.3); GLUCOSE 95 mg/dL (74-106); MAGNESIUM - SERUM 1.7 mg/dL (1.8-2.4); POTASSIUM - SERUM 4.1 mmol/L (3.5-5.1); PROTEIN - SERUM 7.6 g/dL (6.4-8.2); SODIUM 136 mmol/L (136-145); UREA NITROGEN 13 mg/dL (7-18); eGFR NON AFRICAN AMERICAN 82 mL/min (90-120)
[2019-06-17 13:26] LABS: PLATELET COUNT 498 10x3/uL (130-400)
[2019-06-17 17:43] VITALS: BP 146/96
--- NOTE | 2019-06-17 18:30 | NUR ---
RECEIVED TO ROOM 2234 VIA STRETCHER FROM ER. A/O X3. SKIN IS INTACT WITHOUT REDNESS EXCEPT INCISION TO MID ABDOMEN WHICH IS WELL APPROXIMATED WITH CLIPS INTACT WITH SOME REDNESS NOTED TO AREA. FAMILY WAS HERE BUT LEFT. DENIES NEEDS.
--- NOTE | 2019-06-17 20:00 | NUR ---
PT ARRIVED FROM ER TO FLOOR BEFORE SHIFT CHANGE. REVIEWED HISTORY AND HOME MEDS WITH PT. PT ANXIOUS AND C/O ABDOMINAL AND CHEST PAIN. EKG - NORMAL SINUS RHYTHM. ASSESSMENT COMPLETE PER FLOW-SHEET. MIDLINE ABDOMINAL INCISION WITH KADI REDDENED. PT INFORMED WHEN NEXT PAIN MEDICINE DUE. NO OTHER NEEDS. WILL REASSESS AND CONTINUE TO MONITOR.
[2019-06-17 20:01] VITALS: BP 152/97
[2019-06-17 23:54] VITALS: BP 142/88; BMI 19.7
[2019-06-18] VITALS (16 sets, daily range): BP systolic 124–168; BP diastolic 65–108
[2019-06-18 06:45] LABS: BASOPHILS 0.5 % (0-2); EOSINOPHILS 1.5 % (0-7); LYMPHOCYTES 20.5 % (15-50); MCH 27.6 pg (26.0-34.0); MCHC 32.1 g/dL (31.0-37.0); MCV 85.8 fL (80.0-100.0); MEAN PLATELET VOLUME 10.3 fL (7.4-10.4); MONOCYTES 5.6 % (2-11); NEUTROPHILS 70.9 % (40-80); RBC 3.59 10x6/uL (4.00-5.40); RDW 13.9 % (11.5-14.5)
[2019-06-18 06:52] LABS: HEMOGLOBIN 9.9 g/dL (12-16); WBC 6.1 10x3/uL (4.8-10.8)
[2019-06-18 06:53] LABS: HEMATOCRIT 30.8 % (36.0-48.0); PLATELET COUNT 355 10x3/uL (130-400)
[2019-06-18 07:06] LABS: ALBUMIN 2.4 g/dL (3.4-5.0); ALKALINE PHOSPHATASE 86 U/L (46-116); ALT (SGPT) 8 U/L (10-68); BILIRUBIN - TOTAL 0.42 mg/dL (0.2-1.3); CALCIUM 8.8 mg/dL (8.5-10.1); CHLORIDE - SERUM 107 mmol/L (98-107); CREATININE - SERUM 0.8 mg/dL (0.6-1.3); GLUCOSE 79 mg/dL (74-106); MAGNESIUM - SERUM 1.4 mg/dL (1.8-2.4); PHOSPHOROUS 2.9 mg/dL (2.5-4.9); POTASSIUM - SERUM 3.5 mmol/L (3.5-5.1); PROTEIN - SERUM 5.9 g/dL (6.4-8.2); SODIUM 142 mmol/L (136-145); eGFR NON AFRICAN AMERICAN 82 mL/min (90-120)
[2019-06-18 07:07] LABS: CALC OSMOLALITY 280 mosm/kg (275-300); CARBON DIOXIDE 21.2 mmol/L (21.0-32.0); UREA NITROGEN 9 mg/dL (7-18)
--- NOTE | 2019-06-18 12:01 | NUR ---
WHEN ARRIVED THIS MORNING PT WAS YELLING HELP AND THAT HER CHEST AND ABDOMEN WAS HURTING. SEVERAL NURSES WERE IN AND OUT OF ROOM. PAGED JANNETH ABOUT PT. ORDERED TO GIVE 2MG ATIVAN IV ONE TIME AND CONSULT RUBI ON HER AND ORDERED FOR A EKG AND TROPONIN LEVEL. AFTER GIVING ATIVAN PT GOT UP AND FELL. JANNETH AND FAMILY NOTIFIED OF FALL. JANNETH GAVE ORDERS CT OF HEAD AND C-SPINE NOW. JANNETH REQUESTED TO MOVE PT TO ICU FOR RESTRIANTS. PT WAS NONCOMPLAINT WITH WHAT SHE WAS BEING TOLD BY NURSES.
--- NOTE | 2019-06-18 12:15 | NUR ---
MORPHINE UNDERWRITING SUPPORT SPECIALIST DC UPON ARRIVAL PER DR VENEGAS.
--- NOTE | 2019-06-18 12:15 | NUR ---
ARRIVED AT THIS TIME VIA BED ACCOMPANIED BY HOSPITAL STAFF. PT IS AWAKE, SLOW TO RESPOND, AND HAS A HARD TIME FOLLOWING COMMANDS SUCH SQUEEZING HANDS VERSUS RAISING HANDS WHEN NURSE WAS PERFORMING NEURO CHECKS. SMILE IS EQUAL ON BOTH SIDES, TONGUE MIDLINE, STREGNTH EQUAL BILATEARL. PT SPEECH GARBLED, ONLY STATED FIRST NAME WHEN WAS ASSESSING ORIENTATION STATUS, SHAKES HEAD WHEN ASKING ANYTHING ELSE, HOWEVER WHEN NURSE ASKED PT HOW SHE FELT SHE STATED "MY HEAD FEELS ALL JUMBLED." PT ALSO NOTED TO TALK TO TELL NURSE HER HEAD HURTS. DR VENEGAS IN UNIT. WILL CONTINUE TO CLOSELY OBSERVE.
--- NOTE | 2019-06-18 12:46 | NUR ---
BED ALARM NOTED GOING OFF. NURSE WENT TO SEE PT, NOTED PT WAS STANDING UP ON SIDE OF BED STATING SHE NEEDS TO USE THE RESTROOM. NURSE ASSISTED HER TO BEDSIDE TOILET, PT TRANSFERRED WELL. WHEN PT WAS TRANSFERRING BACK FROM BEDSIDE TOILET TO BED NOTED SHE WAS OFF-BALANCED AND REQUIRED MODERATE AMOUNT OF ASSIST BACK TO BED IN ORDER TO NOT FALL: PT WAS SAFELY ASSISTED BACK TO BED AT THIS TIME. BED ALRM ON, SIDE RAILS UP X 2. NONSKID SOCKS IN PLACE. WILL CONTINUE PLAN OF CARE.
--- NOTE | 2019-06-18 13:28 | NUR ---
DR VENEGAS NOTIFIED OF PT HYPERTENSION WITH SBP IN 170S. HE STATED TO ADMIN 10MG NORVASC NOW AND QDAY.
--- NOTE | 2019-06-18 14:15 | NUR ---
PT FAMILY ( AND SON) HAVE TAKEN ALL PTS PERSONAL ITEMS HOME. ALSO UPDATES PROVIDED. NO ACUTE DISTRESS NOTED. PT RESTING. OPENS EYES WHEN SPOKEN TO THEN GOES BACK TO SLEEP. PT STATES SHE IS SLEEPY. VSS. WILL CONTINUE TO OBSERVE.
--- NOTE | 2019-06-18 16:18 | NUR ---
PER DR VENEGAS, OKAY TO TRANSFER PT TO FLOOR. DR LAGUNAS PAGED REGARDING THIS, WAITING FOR CALLBACK.
--- NOTE | 2019-06-18 16:22 | NUR ---
PER DR LAGUNAS, "DO NOT TRANSFER TO FLOOR, KEEP IN ICU."
--- NOTE | 2019-06-18 17:28 | NUR ---
PT COMPLAINT OF CHEST PAIN AT THIS TIME STATING IS A 8/10 AND STABBING PAIN. PRN TYLENOL ADMIN. EKG AND CARDIAC ENZYMES ORDERED PER DR VENEGAS. ALSO ORDERED PROTONIX AND CARAFATE. WILL CONTINUE PLAN OF CARE.
[2019-06-18 18:27] LABS: CKMB 1.5 U/L (0.0-3.6); CREATINE KINASE 25 UL (21-215)
[2019-06-18 18:28] LABS: TROPONIN-I < 0.017 ng/mL (0.000-0.060)
--- NOTE | 2019-06-18 19:30 | NUR ---
PT SLEEPING, AROUSES BRIEFLY TO STIMULI, LETHARGIC, LUNGS CTA, LEFT PORT WITH NS @ 125 CC/HR, ABDOMINAL INCISION WITH KADI INTACT AND OPEN TO AIR, NO DISTRESS NOTED, WILL CONT TO MONITOR
--- NOTE | 2019-06-18 21:00 | NUR ---
PT REMAINS ASLEEP, DIFFICULT TO AROUSE, VOICES NEEDS, VITALS STABLE
--- NOTE | 2019-06-18 23:30 | NUR ---
PT CONFUSED, CALLS OUT FOR MAMA, C/O NAUSEA, GIVEN ZOFRAN
[2019-06-19] VITALS (17 sets, daily range): BP systolic 112–167; BP diastolic 72–109; Ht 162.6 cm; Wt 58.2 kg
--- NOTE | 2019-06-19 01:15 | NUR ---
PT AWAKE, YELLS OUT FREQUENTLY, VITALS STABLE, WILL CONT TO MONITOR
--- NOTE | 2019-06-19 03:00 | NUR ---
AWAKE AT TIMES, CONT TO YELL OUT, INSTRUCTED ON USE OF CALL LIGHT
--- NOTE | 2019-06-19 04:22 | NUR ---
PT SLEEPING ON RIGHT SIDE, NO DISTRESS NOTED, WILL CONT TO MONITOR
[2019-06-19 04:30] LABS: BASOPHILS 0.6 % (0-2); EOSINOPHILS 1.3 % (0-7); HEMATOCRIT 32.3 % (36.0-48.0); HEMOGLOBIN 10.5 g/dL (12-16); IMMATURE GRANULOCYTES 1.1 % (0-5); LYMPHOCYTES 17.3 % (15-50); MCH 27.9 pg (26.0-34.0); MCHC 32.5 g/dL (31.0-37.0); MCV 85.7 fL (80.0-100.0); MEAN PLATELET VOLUME 10.5 fL (7.4-10.4); NEUTROPHILS 74.7 % (40-80); PLATELET COUNT 411 10x3/uL (130-400); RBC 3.77 10x6/uL (4.00-5.40)
[2019-06-19 04:41] LABS: CALC OSMOLALITY 278 mosm/kg (275-300); CALCIUM 8.8 mg/dL (8.5-10.1); CHLORIDE - SERUM 105 mmol/L (98-107); CREATININE - SERUM 0.7 mg/dL (0.6-1.3); GLUCOSE 78 mg/dL (74-106); POTASSIUM - SERUM 3.3 mmol/L (3.5-5.1); SODIUM 142 mmol/L (136-145); eGFR NON AFRICAN AMERICAN > 90 mL/min (90-120)
[2019-06-19 04:44] LABS: UREA NITROGEN 5 mg/dL (7-18)
--- NOTE | 2019-06-19 05:25 | NUR ---
PT AWAKE YELLING OUT, C/O PAIN AT INCISION SITE, INFORMED PT IT WOULD BE TIME FOR PAIN MEDS IN 30 MINUTES
[2019-06-19 06:17] LABS: APPEARANCE CLEAR (CLEAR); BILIRUBIN NEGATIVE (NEGATIVE); COLOR STRAW (YELLOW); GLUCOSE NEGATIVE (NEGATIVE); KETONE MODERATE mg/dL (NEGATIVE); NITRITE NEGATIVE (NEGATIVE); PROTEIN NEGATIVE (NEGATIVE); UROBILINOGEN NORMAL (NORMAL)
--- NOTE | 2019-06-19 07:10 | NUR ---
REPORT RECEIVED. PT CONFUSED AND IN BED. ATTEMPTED TO REORIENT. UNABLE TO. COMPLAINS OF ABD PAIN (INCISIONAL). TYLENOL GIVEN ON FRONT END UI DEVELOPER. NO OTHER PAIN MEDICATION ORDERED. PT HAS A LEFT PORT WITH NS AND POTASSIUM INFUSING. PT HAS ABDOMINAL INCISION FROM BOWEL RESECTION APPROX 10 DAYS AGO. INCISION IS OPEN TO AIR. BED ALARM ON.
--- NOTE | 2019-06-19 07:37 | NUR ---
PT ASSISTED TO BSC. SMALL BOWEL MOVEMENT. ASSISTED PT BACK TO BED AND ALARM TURNED ON.
--- NOTE | 2019-06-19 09:11 | NUR ---
PT HAS TRANSFER ORDERS TO GO TO MED/SURG. ATTEMPTED TO EXPLAIN TO PT THAT SHE'D BE MOVED. HAVE SPOKEN WITH PT'S THIS MORNING. PT TOOK AM MEDICATIONS WITH NO PROBLEMS. IV FLUID CHANGED PER ORDERS. WILL CONTINUE TO MONITOR.
--- NOTE | 2019-06-19 11:07 | NUR ---
PT RESTING QUIETLY. VSS. WILL CONTINUE TO MONITOR.
--- NOTE | 2019-06-19 13:13 | NUR ---
PSYCH CONSULT FAXED DOWN TO [facility].
--- NOTE | 2019-06-19 13:33 | NUR ---
REPORT CALLED TO MED 3 TO ULISES FUNEZ. AT BEDSIDE.
--- NOTE | 2019-06-19 14:20 | NUR ---
NEW PATIENT TRANSFER FROM ICU VIA WC AND ACCOMPANIED BY AND HOSPITAL PERSONNEL. PATIENT IS STABLE AND VSS. PATIENT AHD ORIENTED TO ROOM. IV TO LT CHEST PORT D5LR WITH K INFUSING AT 60 ML/HR. WILL CONTINUE WITH PLAN OF CARE.
[2019-06-19 14:26] LABS: POTASSIUM - SERUM 3.7 mmol/L (3.5-5.1); VANCOMYCIN - TROUGH 13.1 ug/mL (10.0-20.0)
--- NOTE | 2019-06-19 14:46 | NUR ---
PATIENT COMPLAINS OF PAIN TO ABD INCISION AT A 10. MEDICATED PER MAR WITH MORPHINE 4 MG IV. PATIENT TOLERATED WELL. AT BS. WILL CONTINUE TO MONITOR. SR UP X 2 BED IN LOW POSITION AND CALL LIGHT IN REACH.
--- NOTE | 2019-06-19 17:03 | NUR ---
PATIENT LEAVING FOR THE DAY. PATIENT LAYING ON LEFT SIDE IN BED WITH EYES CLOSED AND BREATHING EVENLY. WILL CONITINUE TO MONITOR. SR UP X 2 BED IN LOW POSITION AND CALL LIGHT IN REACH.
--- NOTE | 2019-06-19 17:11 | NUR ---
CALLED TO PATIENTS ROOM. PATIENT IS AWAKE AND COMPLAIINS OF NAUSEA. MEDICATED PER MAR WITH ZOFRAN IV. PATIENT TOLERATED WELL. WILL CONTINUE TO MONITOR.
--- NOTE | 2019-06-19 19:36 | NUR ---
EVENING ROUNDS COMPLETED. VSS, ALERT WITH MILD CONFUSION. PT C/O ABDOMINAL PAIN, STATES ITS A 06/22. NOTIFIED PT THAT NEXT DOSE OF MORPHINE IS NOT DUE UNTIL 2029. STERI-STRIPS ON ABDOMINAL INCISION C/D/I. HELP REPOSITION PT TO HER LEFT SIDE. PT VERBALIZE THE NEED TO USE HER CALL BOTTON WHEN SHE NEEDS HELP. PT DENIES ANY FURHTER NEEDS AT THIS TIME. WILL CPOC. CL WITHIN REACH, BED IN LOW, SR UP X2.
[2019-06-20 04:00] VITALS: BP 137/90
[2019-06-20 06:15] LABS: EOSINOPHILS 2.8 % (0-7); HEMATOCRIT 30.2 % (36.0-48.0); HEMOGLOBIN 9.7 g/dL (12-16); LYMPHOCYTES 37.8 % (15-50); MCH 27.7 pg (26.0-34.0); MCHC 32.1 g/dL (31.0-37.0); MCV 86.3 fL (80.0-100.0); MEAN PLATELET VOLUME 10.3 fL (7.4-10.4); MONOCYTES 7.4 % (2-11); PLATELET COUNT 364 10x3/uL (130-400); RDW 14.1 % (11.5-14.5); WBC 5.8 10x3/uL (4.8-10.8)
[2019-06-20 06:29] LABS: CALC OSMOLALITY 286 mosm/kg (275-300); CALCIUM 8.3 mg/dL (8.5-10.1); CHLORIDE - SERUM 111 mmol/L (98-107); CREATININE - SERUM 0.8 mg/dL (0.6-1.3); GLUCOSE 89 mg/dL (74-106); POTASSIUM - SERUM 3.3 mmol/L (3.5-5.1); SODIUM 146 mmol/L (136-145); UREA NITROGEN 4 mg/dL (7-18); eGFR NON AFRICAN AMERICAN 82 mL/min (90-120)
[2019-06-20 06:30] LABS: CARBON DIOXIDE 29.2 mmol/L (21.0-32.0)
--- NOTE | 2019-06-20 07:08 | NUR ---
REPORT RECEIVED FROM POCKET MARKER AND PATIENT CARE ASSUMED. PATIENT LAYING IN BED ON BACK WITH EYES CLOSED AND BREATHING EVENLY. WILL CONTINUE WITH PLAN OF CARE. SR UP X 2 BED IN LOW POSITION AND CALL LIGHT IN REACH.
--- NOTE | 2019-06-20 09:10 | NUR ---
PATIENT SITTING UP IN BED AWAKE, ALERT AND ORIENTED X 4. PATIENT DENIES ANY NEEDS OR PAIN. PATIENT APPEARS IN NO ACUTE DISTRESS. ABD INC WITH STERI STRIPS INTACT. NO REDNESS , BLEEDING OR BRUISING NOTED. PATIENT IS STABLE AND VSS. ROUTINE MEDS GIVEN WELLS K+ 40 MEQ FOR LOW POTASSIUM OF 3.3. WILL CONTINUE WITH PLAN OF CARE. SR UP X 2 BED IN LOW POSITION AND CALL LIGHT IN REACH.
--- NOTE | 2019-06-20 09:11 | MORECARE ---
CASE MANAGEMENT DISCHARGE SUMMARY PATIENT: RAFAEL PETTY MARICEL UNIT: [id number] ADM DATE: 06/17/19 AGE: 44 : 75 SEX: F ROOM/BED: D.1210 AUTHOR: LEVAR,DOC PHYSICIAN: REFERRING PHYSICIAN: COLLEEN STEELE MD DATE OF SERVICE: 06/20/19 Discharge Plan Patient Name: RAFAEL PETTY Facility: [facility]:[place] : 1975 Planned Disposition: Home Anticipated Discharge Date: 06/20/19 Discharge Date: Expected LOS: 3 Initial Reviewer: [email or web address] Initial Review Date: 06/20/2019 Generated: 06/20/19 10:11 am Comments DCP- Discharge Planning Updated by [email or web address]: Claudia Sweet on 06/20/19 8:[address] Patient Name: RAFAEL PETTY Admission Status: ER Accout number: [id number] Admission Date: 06-17-2019 : 1975 Admission Diagnosis:INFCT FOL A PROC, SUPERFIC INCISIONAL SURGICAL SITE, IN Attending: COLLEEN STEELE Current LOS: 3 Anticipated DC Date: 06-20-2019 Planned Disposition: Home Primary Insurance: MEDICARE A & B Discharge Planning Comments: CM MET WITH PATIENT AND HER ABOUT DC PLANNING/NEEDS. STATES SHE PLANS TO DC TO HOME. I SPOKE TO HER ABOUT HH, REHAB AND EQUIPMENT AND SHE STATES NO NEEDS. HAS PLENTY OF HELP AT HOME. CM WILL FOLLOW AND ASSIST. NEEDED. Glove Turner And Former Automatic: Claudia Sweet DCPIA - Discharge Planning Initial Assessment Updated by [id number]: Claudia Sweet on 06/20/19 9:08 am * Is the patient Alert and Oriented? Yes * PCP CLARICE * [facility] * Preadmission Environment Home with Family * ADLs Independent * Other Equipment WALKER * List name and contact numbers for known caregivers / representatives who currently or will assist patient after discharge: LATANYA, * Community resources currently utilized None * Additional services required to return to the preadmission environment? No * Can the patient safely return to the preadmission environment? Yes * Has this patient been hospitalized within the prior 30 days at any hospital? Yes Coverage Notice Reviewer: [id number] Noemy Sweet Notice Issued Date-Time: 06/20/2019 9:05 Notice Type: IM Discharge Notice Notice Delivered To: Patient Relationship to Patient: Buildings And Grounds Director Name: Delivery Method: HAND - Hand Delivered Anita Days: Prior Verbal Notification: Recipient Understood Notice: Yes Recipient Signature: Yes Med Rec Note Co-signed by Attending: Coverage Notice Comment: Patient Name: RAFAEL PETTY Page [phone] at 0911 All edits/amendments must be made on the electronic document DICTATION DATE: 06/20/19910 GERIATRIC PHYSICAL THERAPIST: MELANY 06/20/19910 RPT#: [id number] DC DATE: STATUS: ADM IN [facility] [address] [place] [address] END OF REPORT
--- NOTE | 2019-06-20 09:30 | NUR ---
DR STEELE IN ROOM. ORDER RECEIVED FOR DC PENDING MEDICAL AND PSYCHIATRIC DC.
--- NOTE | 2019-06-20 09:45 | NUR ---
JOE MONROY ON UNIT . ORDER RECEIVED FOR DC PENDING PSYCHIATRIC DC.
[2019-06-20 11:05] VITALS: BP 123/78
--- NOTE | 2019-06-20 14:49 | CN ---
PATIENT NAME:RAFAEL PETTY MEDICAL RECORD: [id number] : 75 LOCATION:D.M3 D.1210 ADMIT DATE: 06/17/19 ACCOUNT: [id number] CONSULTING PHYSICIAN: SATURNINO SINGH MD REFERRING PHYSICIAN: COLLEEN STEELE MD DATE OF CONSULTATION: 06/19/2019 PSYCHIATRIC CONSULTATION IDENTIFYING DATA: The patient is 44 years old and she is admitted to the hospital on a voluntary basis. CHIEF COMPLAINT: Pain and confusion. HISTORY OF PRESENT ILLNESS: The patient is a very unfortunate young woman who has a complicated and severe medical history. She has recently undergone an abdominal resection. She has had multiple abdominal surgeries. She has been complaining of pain in a manner that is inconsistent with what she should be having at this point. Unfortunately, she has a history of multiple sclerosis, Wernicke syndrome, multiple abdominal surgeries, and is endorsing a lot of neurovegetative depressive symptoms that are associated with some life stressors. There is no evidence of psychosis or acute dangerousness to herself or others and her is at bedside and is very helpful in providing useful information. MENTAL STATUS EXAMINATION: The patient is awake, alert and oriented to person and place, but she is mistaken about the date. She is also oriented to situation. Her mood is depressed. Her affect is constricted. Thought processes are circumstantial and her memory, concentration, and abstraction abilities are moderately impaired. She denies that she would seek to harm herself or others as well as active psychotic symptoms. ASSESSMENT: 1. Cluster C personality disorder. 2. Major depressive episode, mild to moderate. 3. Probable substance use disorder. PLAN: At this time, the patient is showing clear evidence of a mood disorder, although I do not think it is severe. She clearly has underlying symptoms consistent with a cluster C personality style which make her prone to be passive and dependent. I am concerned about her possibly being addicted to narcotics. I checked the prescription drug monitoring program and found that in the past 12 months, she has had 51 prescriptions for controlled substances prescribed to her by 9 different doctors with them being filled in 4 different pharmacies in 4 towns. Most of the prescriptions are for oxycodone and fentanyl. She does have other prescriptions for tramadol, Lyrica, and pregabalin. The patient and her strongly deny any substance abuse issues and I would suspect that there is an iatrogenic component to her addiction as I commonly see in opiate addicted people. Also, there is some concern about why she would be going to so many different doctors and having prescriptions filled at so many different pharmacies, which would indicate that this is not entirely iatrogenic issue, but one in which she and her have been active participants in its development. I do not think she or her would be very open to this suggestion that this is a narcotics problem. I do not view her as acutely dangerous. There is no history of psychiatric disease. She did lose a close CONSULT REPORT [id number] MALINDARAFAEL CONNELLY relative, I think it was her mother earlier this year. The patient has a reliable diagnosis of multiple sclerosis from a neurologist, I know and trust and he is actually considered a national expert in MS. Certainly with MS there can be all sorts of psychiatric and perceptual issues that do not fit nicely into anyone category. I would recommend that she receive thiamine, folate, consistent with possible absorption problems related to her abdominal surgeries. I agree with the use of the Lexapro, but would increase the dose to 20 mg daily. With regard to addressing her pain, I suspect she is having pain as people who are accustomed to taking narcotics on a daily basis regularly develop tolerance to the analgesic properties of the narcotics. This is exactly the reason why in my opinion it is inappropriate to prescribed narcotics for chronic pain. The solution would be to give her enough narcotics to make her comfortable and I think she will stop yelling and can be reasonably discharged, but that only puts off a problem to someone else who is going to have to deal with it. I would recommend that she be given an appropriate amount of analgesic medications based upon the procedure that she has currently had and that it otherwise be explained to her that she just simply cannot continue to take the fentanyl and oxycodone on a regular basis. There will be some withdrawal discomfort that she is experiencing. She is not having full blown opiate withdrawal symptoms. Her pupils are not currently dilated, but she just had an injection of morphine sulfate. She is also not showing nausea, vomiting, diarrhea, sweats, chills in the typical symptoms that are associated with opiate withdrawal. I do not view her as acutely dangerous. I think that the primary issue related to her behavior here in the hospital is the yelling and that it is related to actual pain she is experiencing because she is habituated to opiates. I do not think she or her are going to be very accepting of that conclusion. TRANSINT:[id number] Voice Confirmation ID: [id number] DOCUMENT ID: [id number] SATURNINO SINGH MD at 1449 CC: [id number] DICTATION DATE: 06/19/19 1602 TOPOGRAPHY TECHNICIAN: 06/19/19 1731 ADM IN [place] [id number] [place] [id number]
[2019-06-20 19:06] VITALS: BP 134/86
--- NOTE | 2019-06-20 19:30 | NUR ---
EVENING ROUNDS COMPLETED. PT AAOX3, NO S/S OF DISTRESS. PT C/O OF PAIN STATES ITS A 04/22 IN HER ABD. WILL ADMINISTER WHEN DUE. PT DENIES ANY FURTHER NEEDS AT THIS TIME. WILL CTM.
--- NOTE | 2019-06-20 21:09 | NUR ---
MEDS GIVEN. PT REFUSED MIRALAX. STATES SHE'S HAD DIARHHEA TWICE TODAY.
[2019-06-20 23:53] VITALS: BP 140/85
[2019-06-21 03:48] VITALS: BP 125/77
[2019-06-21 05:37] LABS: BASOPHILS 0.6 % (0-2); EOSINOPHILS 4.2 % (0-7); HEMATOCRIT 30.7 % (36.0-48.0); HEMOGLOBIN 9.7 g/dL (12-16); IMMATURE GRANULOCYTES 0.6 % (0-5); MCH 27.8 pg (26.0-34.0); MCHC 31.6 g/dL (31.0-37.0); MEAN PLATELET VOLUME 10.5 fL (7.4-10.4); MONOCYTES 7.1 % (2-11); NEUTROPHILS 46.5 % (40-80); PLATELET COUNT 357 10x3/uL (130-400); RBC 3.49 10x6/uL (4.00-5.40); RDW 14.6 % (11.5-14.5); WBC 6.2 10x3/uL (4.8-10.8)
[2019-06-21 05:48] LABS: CALC OSMOLALITY 272 mosm/kg (275-300); CALCIUM 8.3 mg/dL (8.5-10.1); CARBON DIOXIDE 29.2 mmol/L (21.0-32.0); CHLORIDE - SERUM 109 mmol/L (98-107); CREATININE - SERUM 0.6 mg/dL (0.6-1.3); GLUCOSE 81 mg/dL (74-106); POTASSIUM - SERUM 3.3 mmol/L (3.5-5.1); SODIUM 138 mmol/L (136-145); eGFR NON AFRICAN AMERICAN > 90 mL/min (90-120)
[2019-06-21 05:53] LABS: UREA NITROGEN 6 mg/dL (7-18)
--- NOTE | 2019-06-21 07:10 | NUR ---
REPORT RECEIVED FROM PHOTOGRAPHY TEACHER AND PATIEINT CARE ASSUMED. PATIENT LAYING IN BED AWAKE ALERT AND ORIENTED X 4. PATIENT STATES FEELING GOOD AND WANTS TO GO HOME. PATIENT IS STABLE AND VSS. WILL CONTINUE WITH PLAN OF CARE.
[2019-06-21 07:48] VITALS: BP 133/81
--- NOTE | 2019-06-21 07:58 | NUR ---
JOE MONROY ON UNIT.
--- NOTE | 2019-06-21 10:30 | NUR ---
ORDERS RECEIVED FOR DC . WRITTEN AND VERBAL INSTRUCTIONS GIVEN. PATIENT VERBALIZED UNDERSTANDING AND WRITTEN INSTRUCTIONS SIGNED. IV TO LT CHEST PORT DCD WITHOUT DIFFICULTY WITH ENTIRE NEEDLE INTACT. BANDAID APPLIED. PATIENT TO FRONT DOOR VIA WC AND HOSPITAL STAFF TO PRIVATE VEHICLE DRIVEN BY SPOUSE.
--- NOTE | 2019-06-21 12:06 | MORECARE ---
CASE MANAGEMENT DISCHARGE SUMMARY PATIENT: RAFAEL PETTY MARICEL UNIT: [id number] ADM DATE: 06/17/19 AGE: 44 : 75 SEX: F ROOM/BED: D.1210 AUTHOR: ROBERTO CRISTOBAL PHYSICIAN: REFERRING PHYSICIAN: COLLEEN STEELE MD DATE OF SERVICE: 06/21/19 Discharge Plan Patient Name: RAFAEL PETTY Facility: [facility]:[place] : 1975 Planned Disposition: Home Anticipated Discharge Date: 06/20/19 Discharge Date: 06/21/2019 Expected LOS: 3 Initial Reviewer: [id number] Initial Review Date: 06/20/2019 Generated: 06/21/19 1:06 pm Comments DCP- Discharge Planning Updated by [email or web address]: Claudia Sweet on 06/20/19 8:[address] Patient Name: RAFAEL PETTY Admission Status: ER Accout number: [id number] Admission Date: 06-17-2019 : 1975 Admission Diagnosis:INFCT FOL A PROC, SUPERFIC INCISIONAL SURGICAL SITE, IN Attending: COLLEEN STEELE Current LOS: 3 Anticipated DC Date: 06-20-2019 Planned Disposition: Home Primary Insurance: MEDICARE A & B Discharge Planning Comments: CM MET WITH PATIENT AND HER ABOUT DC PLANNING/NEEDS. STATES SHE PLANS TO DC TO HOME. I SPOKE TO HER ABOUT HH, REHAB AND EQUIPMENT AND SHE STATES NO NEEDS. HAS PLENTY OF HELP AT HOME. CM WILL FOLLOW AND ASSIST. NEEDED. Mobile Designer: Claudia Sweet DCPIA - Discharge Planning Initial Assessment Updated by [email or web address]: Claudia Sweet on 06/20/19 9:08 am * Is the patient Alert and Oriented? Yes * PCP CLARICE * [facility] * Preadmission Environment Home with Family * ADLs Independent * Other Equipment WALKER * List name and contact numbers for known caregivers / representatives who currently or will assist patient after discharge: LATANYA, * Community resources currently utilized None * Additional services required to return to the preadmission environment? No * Can the patient safely return to the preadmission environment? Yes * Has this patient been hospitalized within the prior 30 days at any hospital? Yes Coverage Notice Reviewer: [email or web address] - Claudia Sweet Notice Issued Date-Time: 06/20/2019 9:05 Notice Type: IM Discharge Notice Notice Delivered To: Patient Relationship to Patient: Escrow Manager Name: Delivery Method: HAND - Hand Delivered Anita Days: Prior Verbal Notification: Recipient Understood Notice: Yes Recipient Signature: Yes Med Rec Note Co-signed by Attending: Coverage Notice Comment: Last DP export: 06/20/19 8:11 a Patient Name: RAFAEL PETTY Page [phone] at 1206 All edits/amendments must be made on the electronic document DICTATION DATE: 06/21/19 1206 CLEANER AND POLISHER: MELANY 06/21/19 1206 RPT#: [id number] DC DATE:06/21/19 STATUS: DIS IN [facility] [address] [place] [address] END OF REPORT
== END 2019-06-21 10:30 | disposition home or self-care (01) | DRG 862 ==
LOC: D.ER 11:51 → D.MS 17:11 → D.ICU 17:11 → D.M3 06-19 14:16
PROVIDERS: Family Medicine; Internal Medicine Nephrology; ADMIT Surgery; ATTEND Surgery
DX: T81.41XA Infection following a procedure, superficial incisional surgical site, initial encounter (principal); G92 Toxic encephalopathy; L03.311 Cellulitis of abdominal wall; E51.2 Wernicke's encephalopathy; E44.0 Moderate protein-calorie malnutrition; Z68.1 Body mass index [BMI] 19.9 or less, adult; I10 Essential (primary) hypertension; G35 Multiple sclerosis; J44.9 Chronic obstructive pulmonary disease, unspecified; K21.9 Gastro-esophageal reflux disease without esophagitis; G62.9 Polyneuropathy, unspecified; R13.10 Dysphagia, unspecified; J45.909 Unspecified asthma, uncomplicated; E11.9 Type 2 diabetes mellitus without complications

== ENCOUNTER 2019-06-30 05:42 | Inpatient (IN) | payer MEDICARE ==
[~2019-06-30] VITALS: Ht 162.6 cm; Wt 59.0 kg
--- NOTE | 2019-06-30 06:10 | NUR ---
PT TO RADIOLOGY.
--- NOTE | 2019-06-30 06:21 | NUR ---
PT RETURNED FROM RADIOLOGY.
[2019-06-30 06:24] LABS: BASOPHILS 0.3 % (0-2); EOSINOPHILS 0.6 % (0-7); HEMATOCRIT 35.7 % (36.0-48.0); HEMOGLOBIN 11.2 g/dL (12-16); IMMATURE GRANULOCYTES 0.3 % (0-5); MCH 28.1 pg (26.0-34.0); MCHC 31.4 g/dL (31.0-37.0); MCV 89.7 fL (80.0-100.0); MEAN PLATELET VOLUME 10.8 fL (7.4-10.4); MONOCYTES 8.8 % (2-11); PLATELET COUNT 323 10x3/uL (130-400); RBC 3.98 10x6/uL (4.00-5.40); RDW 16.4 % (11.5-14.5); WBC 10.5 10x3/uL (4.8-10.8)
[2019-06-30 06:42] LABS: ALKALINE PHOSPHATASE 110 U/L (46-116); ALT (SGPT) 12 U/L (10-68); BILIRUBIN - TOTAL 0.22 mg/dL (0.2-1.3); CALC OSMOLALITY 286 mosm/kg (275-300); CALCIUM 8.6 mg/dL (8.5-10.1); CARBON DIOXIDE 23.8 mmol/L (21.0-32.0); CHLORIDE - SERUM 109 mmol/L (98-107); CREATININE - SERUM 0.6 mg/dL (0.6-1.3); MAGNESIUM - SERUM 1.7 mg/dL (1.8-2.4); PROTEIN - SERUM 6.3 g/dL (6.4-8.2); SODIUM 141 mmol/L (136-145); UREA NITROGEN 35 mg/dL (7-18); eGFR NON AFRICAN AMERICAN > 90 mL/min (90-120)
--- NOTE | 2019-06-30 06:47 | NUR ---
PT AMBULATED TO RESTROOM WITH ASSISTANCE
[2019-06-30 06:48] LABS: GLUCOSE 58 mg/dL (74-106); POTASSIUM - SERUM 3.7 mmol/L (3.5-5.1)
[2019-06-30 06:54] LABS: AMYLASE - SERUM 97 U/L (25-115); LIPASE 470 U/L (73-393)
--- NOTE | 2019-06-30 07:00 | NUR ---
HAND-OFF REPORT RECEIVED FROM OFF-GOING NURSE MANOJ RN
[2019-06-30 07:17] LABS: APPEARANCE CLEAR (CLEAR); BILIRUBIN NEGATIVE (NEGATIVE); COLOR YELLOW (YELLOW); GLUCOSE 1000 mg/dL (NEGATIVE); KETONE NEGATIVE (NEGATIVE); NITRITE NEGATIVE (NEGATIVE); PROTEIN NEGATIVE (NEGATIVE); UROBILINOGEN NORMAL (NORMAL)
[2019-06-30 07:23] LABS: BACTERIA MODERATE /hpf (NEGATIVE); EPITHELIAL CELLS 0-5 /hpf (0-5); MUCUS <1+ /lpf (NONE SEEN); RED CELLS - URINE OCC /hpf (0-5)
[2019-06-30 11:10] VITALS: BP 151/99; BMI 22.3
[2019-06-30 13:14] VITALS: BP 152/95; Ht 162.6 cm; Wt 59.0 kg
[2019-06-30 16:31] VITALS: BP 159/90
[2019-06-30 19:44] VITALS: BP 172/89
--- NOTE | 2019-06-30 19:51 | NUR ---
Patient in bed denies needs. Left ac IV with D5LR at 100ml/hr. no redness noted. water and call light in reach, bed low.
[2019-06-30 23:41] VITALS: BP 145/85
[2019-07-01 05:25] VITALS: BP 136/89
[2019-07-01 06:55] LABS: BASOPHILS 0.4 % (0-2); EOSINOPHILS 3.9 % (0-7); HEMATOCRIT 31.9 % (36.0-48.0); HEMOGLOBIN 9.8 g/dL (12-16); IMMATURE GRANULOCYTES 0.2 % (0-5); LYMPHOCYTES 39.1 % (15-50); MCH 27.8 pg (26.0-34.0); MCHC 30.7 g/dL (31.0-37.0); MCV 90.6 fL (80.0-100.0); MEAN PLATELET VOLUME 10.7 fL (7.4-10.4); MONOCYTES 7.1 % (2-11); NEUTROPHILS 49.3 % (40-80); RBC 3.52 10x6/uL (4.00-5.40); RDW 16.5 % (11.5-14.5)
[2019-07-01 07:06] LABS: PLATELET COUNT 206 10x3/uL (130-400); WBC 4.9 10x3/uL (4.8-10.8)
[2019-07-01 07:18] LABS: ALBUMIN 2.4 g/dL (3.4-5.0); ALKALINE PHOSPHATASE 85 U/L (46-116); ALT (SGPT) 10 U/L (10-68); BILIRUBIN - TOTAL 0.28 mg/dL (0.2-1.3); CALCIUM 8.4 mg/dL (8.5-10.1); CARBON DIOXIDE 27.6 mmol/L (21.0-32.0); CHLORIDE - SERUM 110 mmol/L (98-107); CREATININE - SERUM 0.5 mg/dL (0.6-1.3); GLUCOSE 82 mg/dL (74-106); POTASSIUM - SERUM 3.6 mmol/L (3.5-5.1); SODIUM 143 mmol/L (136-145); eGFR NON AFRICAN AMERICAN > 90 mL/min (90-120)
--- NOTE | 2019-07-01 07:20 | NUR ---
ALERT AND ORIENTED, RESTING IN BED. C/O PAIN. GAVE MORPHINE FOR PAIN. NO S/S OF ACUTE DISTRESS NOTED. IV TO LEFT AC, D5LR @ 100ML/HR. SITE PATENT WITHOUT REDNESS OR SWELLING. ON ELECTROLYTE PROTOCOL. TELEMETRY 61 SR. DENIES ANY NEEDS AT THIS TIME. CALL LIGHT IN REACH. WILL CONTINUE TO MONITOR.
[2019-07-01 07:21] LABS: CALC OSMOLALITY 285 mosm/kg (275-300); UREA NITROGEN 17 mg/dL (7-18)
[2019-07-01 08:40] VITALS: BP 154/90
[2019-07-01 15:04] VITALS: BP 133/91
[2019-07-01 19:00] VITALS: BP 156/90
--- NOTE | 2019-07-01 21:03 | NUR ---
ALERT AND ORENTED ABLE TO VOICE NEEDS AND WANTS TO STAFF. UP AT [place]. WATER AND CALL LIGHT IN REACH BED LOW. IV TO LEFT AC WITH D5LR AT 100ML/HR.NO REDNESS NOTED DENIES PAIN AT SITE. NO S/S OF DISTRESS
[2019-07-02] VITALS: BP 129/90
[2019-07-02 04:00] VITALS: BP 162/97
--- NOTE | 2019-07-02 06:42 | NUR ---
PT WANTS PORT AXSESED FOR BLOOD DRAWS. LAB STATED HAVING TROUBLE GETTING BLOOD.
[2019-07-02 06:53] LABS: BASOPHILS 0.6 % (0-2); EOSINOPHILS 3.8 % (0-7); HEMATOCRIT 32.1 % (36.0-48.0); HEMOGLOBIN 10.1 g/dL (12-16); IMMATURE GRANULOCYTES 0.2 % (0-5); LYMPHOCYTES 28.6 % (15-50); MCH 28.4 pg (26.0-34.0); MCHC 31.5 g/dL (31.0-37.0); MCV 90.2 fL (80.0-100.0); MEAN PLATELET VOLUME 10.1 fL (7.4-10.4); MONOCYTES 6.8 % (2-11); RBC 3.56 10x6/uL (4.00-5.40); RDW 16.2 % (11.5-14.5)
[2019-07-02 06:55] LABS: PLATELET COUNT 127 10x3/uL (130-400)
[2019-07-02 07:00] LABS: ALBUMIN 2.2 g/dL (3.4-5.0); ALKALINE PHOSPHATASE 84 U/L (46-116); BILIRUBIN - TOTAL 0.21 mg/dL (0.2-1.3); CALCIUM 8.4 mg/dL (8.5-10.1); CARBON DIOXIDE 27.9 mmol/L (21.0-32.0); CHLORIDE - SERUM 109 mmol/L (98-107); CREATININE - SERUM 0.5 mg/dL (0.6-1.3); GLUCOSE 95 mg/dL (74-106); POTASSIUM - SERUM 3.5 mmol/L (3.5-5.1); PROTEIN - SERUM 5.2 g/dL (6.4-8.2); SODIUM 141 mmol/L (136-145); eGFR NON AFRICAN AMERICAN > 90 mL/min (90-120)
[2019-07-02 07:03] LABS: ALT (SGPT) 13 U/L (10-68); CALC OSMOLALITY 278 mosm/kg (275-300); UREA NITROGEN 8 mg/dL (7-18)
--- NOTE | 2019-07-02 07:33 | NUR ---
PT SITTING UP IN BED WITH EYES OPEN, ALERT AND ORIENTED. IV LOCATED TO LEFT AC RUNNING D5LR @ 100ML/HR. NO S/S OF DISTRESS AT THIS TIME, DENIES CURRENT NEEDS, WILL CONT TO MONITOR.
[2019-07-02 08:02] VITALS: BP 164/102
[2019-07-02 11:56] VITALS: BP 164/103
[2019-07-02] MEDS ORDERED: LEVOFLOXACIN500 MG PO (14:36)
== END 2019-07-02 16:20 | disposition home or self-care (01) | DRG 388 ==
LOC: D.ER 05:42 → D.MS 07:02
PROVIDERS: Emergency Medicine; Family Medicine; ADMIT Emergency Medicine; ATTEND Emergency Medicine
DX: K56.609 Unspecified intestinal obstruction, unspecified as to partial versus complete obstruction (principal); K85.90 Acute pancreatitis without necrosis or infection, unspecified; R18.8 Other ascites; F11.20 Opioid dependence, uncomplicated; F17.203 Nicotine dependence unspecified, with withdrawal; E44.0 Moderate protein-calorie malnutrition; K56.7 Ileus, unspecified; D64.9 Anemia, unspecified; G35 Multiple sclerosis; E83.42 Hypomagnesemia; K21.9 Gastro-esophageal reflux disease without esophagitis; R47.02 Dysphasia; J44.9 Chronic obstructive pulmonary disease, unspecified; G62.9 Polyneuropathy, unspecified; I10 Essential (primary) hypertension; G25.81 Restless legs syndrome; F32.9 Major depressive disorder, single episode, unspecified; J45.909 Unspecified asthma, uncomplicated; E86.0 Dehydration; R11.2 Nausea with vomiting, unspecified; Z68.22 Body mass index [BMI] 22.0-22.9, adult

== ENCOUNTER 2019-07-03 17:47 | Observation (INO) | payer MEDICARE ==
[~2019-07-03] VITALS: Ht 162.6 cm; Wt 59.0 kg
[~2019-07-03 17:47] MED LIST changes: +LEVOFLOXACIN500 MG PO
[2019-07-03 19:44] LABS: BASOPHILS 0.5 % (0-2); EOSINOPHILS 2.9 % (0-7); HEMATOCRIT 37.4 % (36.0-48.0); IMMATURE GRANULOCYTES 0.2 % (0-5); LYMPHOCYTES 21.6 % (15-50); MCH 29.1 pg (26.0-34.0); MCHC 32.1 g/dL (31.0-37.0); MCV 90.8 fL (80.0-100.0); MEAN PLATELET VOLUME 10.9 fL (7.4-10.4); MONOCYTES 4.8 % (2-11); PLATELET COUNT 215 10x3/uL (130-400); RBC 4.12 10x6/uL (4.00-5.40); RDW 16.6 % (11.5-14.5); WBC 6.3 10x3/uL (4.8-10.8)
[2019-07-03 19:52] LABS: INR 1.02 (0.85-1.17); PROTIME 12.9 SECONDS (11.6-15.0)
[2019-07-03 19:53] LABS: CALCIUM 8.9 mg/dL (8.5-10.1); CARBON DIOXIDE 29.4 mmol/L (21.0-32.0); CHLORIDE - SERUM 107 mmol/L (98-107); GLUCOSE 87 mg/dL (74-106); SODIUM 143 mmol/L (136-145)
[2019-07-03 20:00] LABS: CALC OSMOLALITY 282 mosm/kg (275-300); CREATININE - SERUM 0.7 mg/dL (0.6-1.3); UREA NITROGEN 11 mg/dL (7-18)
[2019-07-03 20:01] LABS: eGFR NON AFRICAN AMERICAN > 90 mL/min (90-120)
[2019-07-03 20:02] LABS: ALBUMIN 3.3 g/dL (3.4-5.0); ALKALINE PHOSPHATASE 116 U/L (46-116); ALT (SGPT) 15 U/L (10-68); BILIRUBIN - TOTAL 0.23 mg/dL (0.2-1.3); PROTEIN - SERUM 6.7 g/dL (6.4-8.2); TROPONIN-I < 0.017 ng/mL (0.000-0.060)
[2019-07-03 21:00] VITALS: BP 137/92
[2019-07-03 21:14] LABS: APPEARANCE CLEAR (CLEAR); BILIRUBIN NEGATIVE (NEGATIVE); COLOR YELLOW (YELLOW); GLUCOSE NEGATIVE (NEGATIVE); KETONE NEGATIVE (NEGATIVE); NITRITE NEGATIVE (NEGATIVE); PROTEIN NEGATIVE (NEGATIVE); UROBILINOGEN NORMAL (NORMAL)
[2019-07-03 21:16] LABS: BACTERIA MODERATE /hpf (NEGATIVE); EPITHELIAL CELLS 0-5 /hpf (0-5); RED CELLS - URINE 0-5 /hpf (0-5); WHITE CELLS - URINE 0-5 /hpf (NEGATIVE)
--- NOTE | 2019-07-03 21:40 | NUR ---
PT RETURNED FROM CT VIA WC.
[2019-07-04 00:08] VITALS: BP 162/92
[2019-07-04 04:00] VITALS: BP 118/79
[2019-07-04 06:04] LABS: BASOPHILS 0.4 % (0-2); EOSINOPHILS 3.5 % (0-7); IMMATURE GRANULOCYTES 0.4 % (0-5); LYMPHOCYTES 34.9 % (15-50); MCH 28.4 pg (26.0-34.0); MCHC 31.5 g/dL (31.0-37.0); MCV 90.3 fL (80.0-100.0); MEAN PLATELET VOLUME 11.5 fL (7.4-10.4); NEUTROPHILS 54.8 % (40-80); PLATELET COUNT 177 10x3/uL (130-400); RDW 16.8 % (11.5-14.5); WBC 5.2 10x3/uL (4.8-10.8)
[2019-07-04 06:09] LABS: HEMATOCRIT 28.9 % (36.0-48.0); HEMOGLOBIN 9.1 g/dL (12-16)
[2019-07-04 06:31] LABS: ALKALINE PHOSPHATASE 79 U/L (46-116); CALC OSMOLALITY 278 mosm/kg (275-300); CALCIUM 7.7 mg/dL (8.5-10.1); CARBON DIOXIDE 29.2 mmol/L (21.0-32.0); CHLORIDE - SERUM 109 mmol/L (98-107); CREATININE - SERUM 0.6 mg/dL (0.6-1.3); GLUCOSE 79 mg/dL (74-106); POTASSIUM - SERUM 3.5 mmol/L (3.5-5.1); SODIUM 141 mmol/L (136-145); UREA NITROGEN 11 mg/dL (7-18); eGFR NON AFRICAN AMERICAN > 90 mL/min (90-120)
[2019-07-04 06:42] LABS: ALBUMIN 2.2 g/dL (3.4-5.0); ALT (SGPT) 11 U/L (10-68); PROTEIN - SERUM 4.9 g/dL (6.4-8.2)
[2019-07-04 07:10] LABS: MAGNESIUM - SERUM 1.6 mg/dL (1.8-2.4); PHOSPHOROUS 2.9 mg/dL (2.5-4.9)
[2019-07-04 08:26] VITALS: BP 128/85
[2019-07-04 09:28] VITALS: Ht 162.6 cm; Wt 59.0 kg
--- NOTE | 2019-07-04 09:57 | NUR ---
PT ALERT X 4. BREATH SOUNDS CLEAR BILAT. LEFT CHEST PORT IN USE, PATENT, DRESSING CDI. BOWEL SOUNDS HYPO X 4. PT REPORTING PAIN OF 5/10, WILL MONITOR. BED LOW, CALL LIGHT IN REACH. NO OTHER NEEDS AT THIS TIME.
[2019-07-04 11:04] LABS: % SATURATION 17 % (15-55); IRON 27 ug/dl (35-150); TOTAL IRON BIND CAPACITY 155 ug/dl (260-445); UNSAT IRON BIND CAPACITY 128 ug/dl (150-375)
[2019-07-04 12:24] VITALS: BP 158/94
[2019-07-04 17:19] VITALS: BP 142/89
--- NOTE | 2019-07-04 18:23 | NUR ---
DISCHARGE PAPERWORK SIGNED, ALL QUESTIONS ANSWERED. LEFT CHEST PORT DEACCESSED, PT TOLERATED WELL. ESCORTED OUT BY WHEELCHAIR.
[2019-07-05] MEDS ORDERED: BENTYL 20 MG TA20 MG PO (19:11)
== END 2019-07-04 18:24 | disposition home or self-care (01) ==
LOC: D.ER 17:47 → OBSVTIME 22:39 → D.MS 22:39
PROVIDERS: Family Medicine; ADMIT Internal Medicine Nephrology; ATTEND Internal Medicine Nephrology
DX: K56.600 Partial intestinal obstruction, unspecified as to cause (principal); Z76.5 Malingerer [conscious simulation]; D64.9 Anemia, unspecified; E83.42 Hypomagnesemia; G62.9 Polyneuropathy, unspecified; G35 Multiple sclerosis; Z98.84 Bariatric surgery status; J44.9 Chronic obstructive pulmonary disease, unspecified; K21.9 Gastro-esophageal reflux disease without esophagitis; R10.9 Unspecified abdominal pain

== ENCOUNTER 2019-07-05 16:26 | Emergency (ER) | payer MEDICARE ==
[~2019-07-05] VITALS: Ht 162.6 cm; Wt 59.1 kg
[2019-07-05 16:38] VITALS: Ht 162.6 cm; Wt 59.1 kg
[2019-07-05 18:13] LABS: BASOPHILS 0.4 % (0-2); EOSINOPHILS 2.5 % (0-7); IMMATURE GRANULOCYTES 0.2 % (0-5); LYMPHOCYTES 27.1 % (15-50); MCH 28.2 pg (26.0-34.0); MCHC 31.6 g/dL (31.0-37.0); MCV 89.2 fL (80.0-100.0); MEAN PLATELET VOLUME 11.3 fL (7.4-10.4); MONOCYTES 4.4 % (2-11); NEUTROPHILS 65.4 % (40-80); PLATELET COUNT 193 10x3/uL (130-400); RDW 16.5 % (11.5-14.5); WBC 5.7 10x3/uL (4.8-10.8)
[2019-07-05 18:22] LABS: HEMATOCRIT 35.4 % (36.0-48.0); HEMOGLOBIN 11.2 g/dL (12-16); RBC 3.97 10x6/uL (4.00-5.40)
[2019-07-05 18:46] LABS: CALC OSMOLALITY 278 mosm/kg (275-300); CALCIUM 8.9 mg/dL (8.5-10.1); CHLORIDE - SERUM 106 mmol/L (98-107); CREATININE - SERUM 0.6 mg/dL (0.6-1.3); GLUCOSE 82 mg/dL (74-106); POTASSIUM - SERUM 3.8 mmol/L (3.5-5.1); SODIUM 140 mmol/L (136-145); eGFR NON AFRICAN AMERICAN > 90 mL/min (90-120)
[2019-07-05 18:48] LABS: UREA NITROGEN 14 mg/dL (7-18)
[2019-07-05 18:52] LABS: ALKALINE PHOSPHATASE 106 U/L (46-116)
[2019-07-05 18:54] LABS: ALBUMIN 3.2 g/dL (3.4-5.0); ALT (SGPT) 14 U/L (10-68); PROTEIN - SERUM 6.5 g/dL (6.4-8.2)
[2019-07-05] MEDS ORDERED: BENTYL 20 MG TA20 MG PO (19:11)
[2019-07-05 21:30] VITALS: BP 149/82
== END 2019-07-05 19:35 | disposition home or self-care (01) ==
LOC: D.ER 16:26
PROVIDERS: Family Medicine
DX: R10.9 Unspecified abdominal pain (principal); I10 Essential (primary) hypertension

== ENCOUNTER 2019-07-07 20:58 | Emergency (ER) | payer MEDICARE ==
[~2019-07-07] VITALS: Ht 162.6 cm; Wt 59.1 kg
[~2019-07-07 20:58] MED LIST changes: +BENTYL 20 MG TA20 MG PO
[2019-07-07 21:02] VITALS: Ht 162.6 cm; Wt 59.1 kg
[2019-07-07] MEDS ORDERED: PHENERGAN25 MG RC (21:40)
[2019-07-07 21:50] VITALS: BP 108/71
[2019-07-07] MEDS ORDERED: VOLTAREN75 MG PO (23:59)
== END 2019-07-07 21:50 | disposition home or self-care (01) ==
LOC: D.ER 20:58
DX: R10.9 Unspecified abdominal pain (principal)

== ENCOUNTER 2019-07-07 23:38 | Emergency (ER) | payer MEDICARE ==
[~2019-07-07] VITALS: Ht 162.6 cm; Wt 75.0 kg
[2019-07-07 23:46] VITALS: Ht 162.6 cm; Wt 75.0 kg
[2019-07-07] MEDS ORDERED: VOLTAREN75 MG PO (23:59)
[2019-07-08 00:31] VITALS: BP 112/70
== END 2019-07-08 00:31 | disposition home or self-care (01) ==
LOC: D.ER 23:38
DX: R10.9 Unspecified abdominal pain (principal)

== ENCOUNTER 2019-07-12 13:44 | Emergency (ER) | payer MEDICARE ==
[~2019-07-12] VITALS: Ht 162.6 cm; Wt 59.1 kg
[2019-07-12 13:49] VITALS: Ht 162.6 cm; Wt 59.1 kg
[2019-07-12 14:21] LABS: BASOPHILS 0.5 % (0-2); EOSINOPHILS 1.4 % (0-7); HEMATOCRIT 42.5 % (36.0-48.0); IMMATURE GRANULOCYTES 0.2 % (0-5); LYMPHOCYTES 23.9 % (15-50); MCH 29.1 pg (26.0-34.0); MCHC 32.9 g/dL (31.0-37.0); MCV 88.4 fL (80.0-100.0); MEAN PLATELET VOLUME 10.6 fL (7.4-10.4); MONOCYTES 3.6 % (2-11); NEUTROPHILS 70.4 % (40-80); RBC 4.81 10x6/uL (4.00-5.40); RDW 15.9 % (11.5-14.5); WBC 5.8 10x3/uL (4.8-10.8)
[2019-07-12 14:38] LABS: PLATELET COUNT 287 10x3/uL (130-400)
[2019-07-12 14:57] LABS: APPEARANCE HAZY (CLEAR); BILIRUBIN NEGATIVE (NEGATIVE); COLOR YELLOW (YELLOW); GLUCOSE NEGATIVE (NEGATIVE); KETONE LARGE mg/dL (NEGATIVE); NITRITE NEGATIVE (NEGATIVE); PROTEIN NEGATIVE (NEGATIVE); SPECIFIC GRAVITY 1.025 (1.005-1.020); UROBILINOGEN NORMAL (NORMAL)
[2019-07-12 14:58] LABS: BACTERIA MODERATE /hpf (NEGATIVE); RED CELLS - URINE 0-5 /hpf (0-5)
[2019-07-12 15:40] LABS: ANION GAP 16.8 mmol/L (8-16); CALCIUM 9.4 mg/dL (8.5-10.1); CREATININE - SERUM 0.9 mg/dL (0.6-1.3); POTASSIUM - SERUM 3.8 mmol/L (3.5-5.1)
[2019-07-12 15:46] LABS: ALBUMIN 3.8 g/dL (3.4-5.0); BILIRUBIN - TOTAL 0.75 mg/dL (0.2-1.3); PROTEIN - SERUM 7.9 g/dL (6.4-8.2)
[2019-07-12] MEDS ORDERED: CARAFATE1 G PO (17:19)
[2019-07-12] MEDS ORDERED: ZOFRAN ODT4 MG/UDTAB PO (17:19)
[2019-07-12 17:33] VITALS: BP 125/74
== END 2019-07-12 17:35 | disposition home or self-care (01) ==
LOC: D.ER 13:44
PROVIDERS: Family Medicine
DX: R10.9 Unspecified abdominal pain (principal); R11.10 Vomiting, unspecified; E86.0 Dehydration

== ENCOUNTER 2019-07-13 11:48 | Observation (INO) | payer MEDICARE ==
[~2019-07-13] VITALS: Ht 162.6 cm; Wt 59.0 kg
[~2019-07-13 11:48] MED LIST changes: +CARAFATE1 G PO
[2019-07-13 12:37] VITALS: BP 155/87
[2019-07-13 13:12] VITALS: BP 155/87; BMI 22.3
[2019-07-13 13:26] LABS: BASOPHILS 0.2 % (0-2); EOSINOPHILS 1.5 % (0-7); HEMATOCRIT 37.5 % (36.0-48.0); HEMOGLOBIN 12.1 g/dL (12-16); LYMPHOCYTES 25.6 % (15-50); MCH 28.5 pg (26.0-34.0); MCHC 32.3 g/dL (31.0-37.0); MCV 88.4 fL (80.0-100.0); MEAN PLATELET VOLUME 10.4 fL (7.4-10.4); MONOCYTES 5.9 % (2-11); NEUTROPHILS 66.8 % (40-80); PLATELET COUNT 255 10x3/uL (130-400); RBC 4.24 10x6/uL (4.00-5.40); RDW 16.3 % (11.5-14.5); WBC 4.6 10x3/uL (4.8-10.8)
[2019-07-13 13:35] LABS: ANION GAP 14.8 mmol/L (8-16); CARBON DIOXIDE 26.1 mmol/L (21.0-32.0); POTASSIUM - SERUM 3.9 mmol/L (3.5-5.1); PRE-ALBUMIN 24.2 mg/dL (18.0-35.7)
--- NOTE | 2019-07-13 13:46 | NUR ---
PORT ACCESSED BY RN FOR IV FLUID AND PT TOLERATED WELL. IVF INFUSING WELL VIA PUMP AT 150 CC/HR.
[2019-07-13 14:56] LABS: ALBUMIN 3.6 g/dL (3.4-5.0); BILIRUBIN - DIRECT 0.12 mg/dL (0.00-0.30); BILIRUBIN - INDIRECT 0.39 mg/dL (0.00-1.00); BILIRUBIN - TOTAL 0.51 mg/dL (0.2-1.3); PROTEIN - SERUM 7.1 g/dL (6.4-8.2)
--- NOTE | 2019-07-13 16:08 | MORECARE ---
CASE MANAGEMENT DISCHARGE SUMMARY PATIENT: RAFAEL PETTY MARICEL UNIT: [id number] ADM DATE: 07/13/19 AGE: 44 : 75 SEX: F ROOM/BED: D.2136 AUTHOR: ROBERTO CRISTOBAL PHYSICIAN: REFERRING PHYSICIAN: ZEKE ONEIL DO DATE OF SERVICE: 07/13/19 Discharge Plan Patient Name: RAFAEL PETTY Facility: [facility]:[place] : 1975 Planned Disposition: Home Anticipated Discharge Date: 07/14/19 Discharge Date: Expected LOS: 1 Initial Reviewer: [email or web address] Initial Review Date: 07/13/2019 Generated: 07/13/19 5:08 pm DCPIA - Discharge Planning Initial Assessment Updated by [email or web address]: oYny Wade on 07/13/19 4:03 pm * Is the patient Alert and Oriented? Yes * How many steps to enter\exit or inside your home? NONE * PCP DR. ONEIL * [facility] [place] * Preadmission Environment Home with Family * ADLs Independent * Equipment Walker * Other Equipment NO MEDICAL EQUIPMENT PROVIDER PREFERENCE * List name and contact numbers for known caregivers / representatives who currently or will assist patient after discharge: LATANYA PETTY, SPOUSE, AGUSTIN PETTY, SON, * Verbal permission to speak to the caregivers and representatives has been obtained from the patient. Yes * Community resources currently utilized None * Please name any agencies selected above. NONE * Additional services required to return to the preadmission environment? No * Can the patient safely return to the preadmission environment? Yes * Has this patient been hospitalized within the prior 30 days at any hospital? No Patient Name: RAFAEL PETTY Page [phone] at 1608 All edits/amendments must be made on the electronic document DICTATION DATE: 07/13/191607 SENIOR MATERIALS SCIENTIST: MELANY 07/13/191607 RPT#: [id number] DC DATE: STATUS: ADM IN [facility] [address] [place] [address] END OF REPORT
--- NOTE | 2019-07-13 16:17 | MORECARE ---
CASE MANAGEMENT DISCHARGE SUMMARY PATIENT: RAFAEL PETTY MARICEL UNIT: [id number] ADM DATE: 07/13/19 AGE: 44 : 75 SEX: F ROOM/BED: D.1779 AUTHOR: ROBERTO CRISTOBAL PHYSICIAN: REFERRING PHYSICIAN: ZEKE ONEIL DO DATE OF SERVICE: 07/13/19 Discharge Plan Patient Name: RAFAEL PETTY Facility: [facility]:[place] : 1975 Planned Disposition: Home Anticipated Discharge Date: 07/14/19 Discharge Date: Expected LOS: 1 Initial Reviewer: [email or web address] Initial Review Date: 07/13/2019 Generated: 07/13/19 5:17 pm DCP- Discharge Planning Updated by [email or web address]: Yony Wade on 07/13/19 3:[address] Patient Name: RAFAEL PETTY Admission Status: Urgent Accout number: [id number] Admission Date: 07-13-2019 : 1975 Admission Diagnosis: Attending: ZEKE ONEIL Current LOS: 1 Anticipated DC Date: 07-14-2019 Planned Disposition: Home Primary Insurance: MEDICARE A & B Discharge Planning Comments: CM MET WITH PTAND SON IN ROOM TO DISCUSS DISCHARGE PLANNING AND NEEDS. RAFAEL PETTY provided verbal consent to discuss current and ongoing needs with/in the presence of: SONAGUSTIN. PT REPORTS LIVING AT HOME INDEPENDENTLY WITH HER SPOUSE. PT HAS STANDARD WALKER WITH NO MEDICAL EQUIPMENT PROVIDER PREFERENCE. PT HAS NO OUTSIDE SERVICES ASSISTING IN THE HOME. CM DISCUSSED PT'S EXTENSIVE EMERGENCY ROOM AND HOSPITAL ADMISSION HISTORY FOR PAST YEAR. PT HAS HAD 13 INPATIENT ADMISSIONS AND 28 EMERGENCY ROOM VISITS THIS YEAR. PT STATES SHE HAS MS AND HAD STOMACH SURGERY TO HELP HER BLOOD PRSSURE AND HAS BEEN VERY SICK. CM DISCUSSED AVAILABILITY OF HOME HEALTH, REHAB SERVICES AND MEDICAL EQUIPMENT. PT DENIES DISCHARGE NEEDS, REPORTS HER FAMILY WILL PICK HER UP FOR DISCHARGE HOME. CM DISCUSSED OTHER LIVING ARRANGMENTS OUTSIDE THE HOME; PT STATES DR. STEELE DISCUSSED INTERMEDIATE PLACEMENT WITH HER AND SHE IS NOT GOING. PT STATES SHE WILL BE GOING HOME AT DISCHARGE. PT STATES SHE HAD A WHEELCHAIR THAT NO LONGER WORKS THAT SHE BOUGHT PERSONALLY AND WOULD LIKE A WHEELCHAIR IF THE DOCTOR WILL ORDER IT. PT HAS NOT CHOICE OF EQUIPMENT PROVIDER, SIGNED CHOICE FOR NO MEDICAL EQUIPMENT PROVIDER PREFERENCE. PT WILL DISCUSS ORDER FOR WHEELCHAIR WITH HER DOCTOR. PT REFUSED NURSING FACILITY. PT WILL DISCHARGE HOME WITH FAMILY, DENIES DISCHARGE NEEDS OTHER THAN A WHEELCHAIR. IF PHYSICIAN AGREES WITH NEED OF A WHEELCHAIR AND PROVIDES ORDER, CM WILL ATTEMPT TO ARRANGE FOR DISCHARGE HOME. CM TO CONTINUE TO FOLLOW AND ASSIST IF NEEDED. Product Manufacturing Professional: Yony Wade DCPIA - Discharge Planning Initial Assessment Updated by [id number]: Yony Wade on 07/13/19 4:03 pm * Is the patient Alert and Oriented? Yes * How many steps to enter\exit or inside your home? NONE * PCP DR. ONEIL * [facility] [place] * Preadmission Environment Home with Family * ADLs Independent * Equipment Walker * Other Equipment NO MEDICAL EQUIPMENT PROVIDER PREFERENCE * List name and contact numbers for known caregivers / representatives who currently or will assist patient after discharge: LATANYA PETTY, SPOUSE, AGUSTIN PETTY, SON, * Verbal permission to speak to the caregivers and representatives has been obtained from the patient. Yes * Community resources currently utilized None * Please name any agencies selected above. NONE * Additional services required to return to the preadmission environment? No * Can the patient safely return to the preadmission environment? Yes * Has this patient been hospitalized within the prior 30 days at any hospital? No Coverage Notice Reviewer: [id number] - Yony Wade Notice Issued Date-Time: 07/13/2019 15:40 Notice Type: Patient Choice Letter Notice Delivered To: Patient Relationship to Patient: Hand Printed Circuit Board Assembler Name: Delivery Method: HAND - Hand Delivered Anita Days: Prior Verbal Notification: Recipient Understood Notice: Yes Recipient Signature: Yes Med Rec Note Co-signed by Attending: Coverage Notice Comment: NO MEDICAL EQUIPMENT PROVIDER PREFERENCE. Last DP export: 07/13/19 3:08 Patient Name: RAFAEL PETTY Page [phone] at 1617 All edits/amendments must be made on the electronic document DICTATION DATE: 07/13/191616 DEVELOPMENT EXPERT: MELANY 07/13/191616 RPT#: [id number] DC DATE: STATUS: ADM IN [facility] [address] [place] [address] END OF REPORT
[2019-07-13 18:14] VITALS: BP 164/80
[2019-07-13 18:29] LABS: APPEARANCE SL CLDY (CLEAR); BILIRUBIN NEGATIVE (NEGATIVE); COLOR YELLOW (YELLOW); GLUCOSE NEGATIVE (NEGATIVE); KETONE MODERATE mg/dL (NEGATIVE); NITRITE NEGATIVE (NEGATIVE); PROTEIN TRACE mg/dL (NEGATIVE); SPECIFIC GRAVITY 1.015 (1.005-1.020); UROBILINOGEN NORMAL (NORMAL)
[2019-07-13 18:31] LABS: WHITE CELLS - URINE 25-50 /hpf (NEGATIVE)
[2019-07-13 18:32] LABS: BACTERIA MODERATE /hpf (NEGATIVE); CALCIUM OXALATE CRYSTALS 0-5 /hpf (NONE SEEN); EPITHELIAL CELLS 0-5 /hpf (0-5); RED CELLS - URINE 0-5 /hpf (0-5)
[2019-07-13 20:00] VITALS: BP 113/78
[2019-07-13 23:00] VITALS: BP 123/84
[2019-07-14 04:00] VITALS: BP 136/86
[2019-07-14 06:54] LABS: ALBUMIN 2.9 g/dL (3.4-5.0); ANION GAP 10.1 mmol/L (8-16); BILIRUBIN - TOTAL 0.27 mg/dL (0.2-1.3); CALCIUM 8.4 mg/dL (8.5-10.1); CARBON DIOXIDE 25.5 mmol/L (21.0-32.0); CREATININE - SERUM 0.9 mg/dL (0.6-1.3); MAGNESIUM - SERUM 1.5 mg/dL (1.8-2.4); POTASSIUM - SERUM 3.6 mmol/L (3.5-5.1); PROTEIN - SERUM 5.8 g/dL (6.4-8.2)
[2019-07-14 07:09] LABS: BASOPHILS 0.3 % (0-2); EOSINOPHILS 0.8 % (0-7); HEMATOCRIT 32.8 % (36.0-48.0); HEMOGLOBIN 10.4 g/dL (12-16); LYMPHOCYTES 21.9 % (15-50); MCH 28.7 pg (26.0-34.0); MCHC 31.7 g/dL (31.0-37.0); MEAN PLATELET VOLUME 10.9 fL (7.4-10.4); MONOCYTES 5.3 % (2-11); NEUTROPHILS 71.7 % (40-80); RBC 3.62 10x6/uL (4.00-5.40); RDW 16.9 % (11.5-14.5); WBC 3.9 10x3/uL (4.8-10.8)
[2019-07-14 07:10] LABS: MCV 90.6 fL (80.0-100.0); PLATELET COUNT 198 10x3/uL (130-400)
[2019-07-14 08:47] VITALS: BP 158/92
[2019-07-14 12:06] VITALS: BP 127/92
--- NOTE | 2019-07-14 14:19 | NUR ---
I have reviewed this patient and I concur with the Shift Assessment completed by the Licensed Practical Nurse today this shift.
[2019-07-14 14:52] VITALS: BMI 22.3
[2019-07-14 16:01] VITALS: Ht 162.6 cm; Wt 59.0 kg
--- NOTE | 2019-07-14 16:01 | MORECARE ---
CASE MANAGEMENT DISCHARGE SUMMARY PATIENT: RAFAEL PETTY MARICEL UNIT: [id number] ADM DATE: 07/13/19 AGE: 44 : 75 SEX: F ROOM/BED: D.7788 AUTHOR: ROBERTO CRISTOBAL PHYSICIAN: REFERRING PHYSICIAN: ZEKE ONEIL DO DATE OF SERVICE: 07/14/19 Discharge Plan Patient Name: RAFAEL PETTY Facility: [facility]:[place] : 1975 Planned Disposition: Home Anticipated Discharge Date: 07/14/19 Discharge Date: Expected LOS: 1 Initial Reviewer: [id number] Initial Review Date: 07/13/2019 Generated: 07/14/19 5:01 pm DCP- Discharge Planning Updated by [id number]: Yony Wade on 07/13/19 3:[address] Patient Name: RAFAEL PETTY Admission Status: Urgent Accout number: [id number] Admission Date: 07-13-2019 : 1975 Admission Diagnosis: Attending: ZEKE ONEIL Current LOS: 1 Anticipated DC Date: 07-14-2019 Planned Disposition: Home Primary Insurance: MEDICARE A & B Discharge Planning Comments: CM MET WITH PTAND SON IN ROOM TO DISCUSS DISCHARGE PLANNING AND NEEDS. RAFAEL PETTY provided verbal consent to discuss current and ongoing needs with/in the presence of: SONAGUSTIN. PT REPORTS LIVING AT HOME INDEPENDENTLY WITH HER SPOUSE. PT HAS STANDARD WALKER WITH NO MEDICAL EQUIPMENT PROVIDER PREFERENCE. PT HAS NO OUTSIDE SERVICES ASSISTING IN THE HOME. CM DISCUSSED PT'S EXTENSIVE EMERGENCY ROOM AND HOSPITAL ADMISSION HISTORY FOR PAST YEAR. PT HAS HAD 13 INPATIENT ADMISSIONS AND 28 EMERGENCY ROOM VISITS THIS YEAR. PT STATES SHE HAS MS AND HAD STOMACH SURGERY TO HELP HER BLOOD PRSSURE AND HAS BEEN VERY SICK. CM DISCUSSED AVAILABILITY OF HOME HEALTH, REHAB SERVICES AND MEDICAL EQUIPMENT. PT DENIES DISCHARGE NEEDS, REPORTS HER FAMILY WILL PICK HER UP FOR DISCHARGE HOME. CM DISCUSSED OTHER LIVING ARRANGMENTS OUTSIDE THE HOME; PT STATES DR. STEELE DISCUSSED [facility] PLACEMENT WITH HER AND SHE IS NOT GOING. PT STATES SHE WILL BE GOING HOME AT DISCHARGE. PT STATES SHE HAD A WHEELCHAIR THAT NO LONGER WORKS THAT SHE BOUGHT PERSONALLY AND WOULD LIKE A WHEELCHAIR IF THE DOCTOR WILL ORDER IT. PT HAS NOT CHOICE OF EQUIPMENT PROVIDER, SIGNED CHOICE FOR NO MEDICAL EQUIPMENT PROVIDER PREFERENCE. PT WILL DISCUSS ORDER FOR WHEELCHAIR WITH HER DOCTOR. PT REFUSED NURSING FACILITY. PT WILL DISCHARGE HOME WITH FAMILY, DENIES DISCHARGE NEEDS OTHER THAN A WHEELCHAIR. IF PHYSICIAN AGREES WITH NEED OF A WHEELCHAIR AND PROVIDES ORDER, CM WILL ATTEMPT TO ARRANGE FOR DISCHARGE HOME. CM TO CONTINUE TO FOLLOW AND ASSIST IF NEEDED. Support Teacher: Yony Wade DCPIA - Discharge Planning Initial Assessment Updated by [id number]: Yony Wade on 07/13/19 4:03 pm * Is the patient Alert and Oriented? Yes * How many steps to enter\exit or inside your home? NONE * PCP DR. ONEIL * Pharmacy [facility] [place] * Preadmission Environment Home with Family * ADLs Independent * Equipment Walker * Other Equipment NO MEDICAL EQUIPMENT PROVIDER PREFERENCE * List name and contact numbers for known caregivers / representatives who currently or will assist patient after discharge: LATANYA PETTY, SPOUSE, AGUSTIN PETTY, SON, * Verbal permission to speak to the caregivers and representatives has been obtained from the patient. Yes * Community resources currently utilized None * Please name any agencies selected above. NONE * Additional services required to return to the preadmission environment? No * Can the patient safely return to the preadmission environment? Yes * Has this patient been hospitalized within the prior 30 days at any hospital? No External Providers External Provider: OTHER-OTHER Next Contact Date: Service Request Date: Service Type: Resolution: Reviewer: Comments: Coverage Notice Reviewer: [id number] - Yony Wade Notice Issued Date-Time: 07/13/2019 15:40 Notice Type: Patient Choice Letter Notice Delivered To: Patient Relationship to Patient: Blueprint Machine Operator Name: Delivery Method: HAND - Hand Delivered Anita Days: Prior Verbal Notification: Recipient Understood Notice: Yes Recipient Signature: Yes Med Rec Note Co-signed by Attending: Coverage Notice Comment: NO MEDICAL EQUIPMENT PROVIDER PREFERENCE. Last DP export: 07/13/19 3:17 Patient Name: RAFAEL PETTY Page [phone] at 1601 All edits/amendments must be made on the electronic document DICTATION DATE: 07/14/19 1601 MICROBIOLOGY TECHNOLOGIST: MELANY 07/14/19 1601 RPT#: [id number] DC DATE: STATUS: ADM IN [facility] [address] [place] [address] END OF REPORT
[2019-07-14 16:05] VITALS: BP 145/64
--- NOTE | 2019-07-14 19:10 | NUR ---
PT CARE ASSUMED. PT A&O X4. SITTING UP IN BED RR EVEN AND UNLABORED ON RA. NO S/S OF DISTRESS NOTED AT THIS TIME. CALL LIGHT IN REACH. WILL CTM.
[2019-07-14 20:00] VITALS: BP 120/68
[2019-07-15] VITALS: BP 143/84
[2019-07-15 04:00] VITALS: BP 143/94
[2019-07-15 04:48] LABS: BASOPHILS 0.2 % (0-2); EOSINOPHILS 4.8 % (0-7); HEMATOCRIT 32.5 % (36.0-48.0); IMMATURE GRANULOCYTES 0.2 % (0-5); LYMPHOCYTES 32.1 % (15-50); MCH 28.5 pg (26.0-34.0); MCHC 30.8 g/dL (31.0-37.0); MEAN PLATELET VOLUME 10.8 fL (7.4-10.4); MONOCYTES 5.1 % (2-11); NEUTROPHILS 57.6 % (40-80); PLATELET COUNT 185 10x3/uL (130-400); RBC 3.51 10x6/uL (4.00-5.40); RDW 17.4 % (11.5-14.5)
[2019-07-15 04:53] LABS: MCV 92.6 fL (80.0-100.0)
[2019-07-15 05:10] LABS: ALBUMIN 2.6 g/dL (3.4-5.0); ALKALINE PHOSPHATASE 97 U/L (46-116); ALT (SGPT) 16 U/L (10-68); BILIRUBIN - TOTAL 0.23 mg/dL (0.2-1.3); CALCIUM 8.3 mg/dL (8.5-10.1); CARBON DIOXIDE 26.9 mmol/L (21.0-32.0); CHLORIDE - SERUM 111 mmol/L (98-107); MAGNESIUM - SERUM 1.4 mg/dL (1.8-2.4); PROTEIN - SERUM 5.3 g/dL (6.4-8.2); SODIUM 146 mmol/L (136-145)
[2019-07-15 05:12] LABS: CALC OSMOLALITY 288 mosm/kg (275-300); CREATININE - SERUM 0.6 mg/dL (0.6-1.3); GLUCOSE 72 mg/dL (74-106); POTASSIUM - SERUM 4.5 mmol/L (3.5-5.1); UREA NITROGEN 9 mg/dL (7-18); eGFR NON AFRICAN AMERICAN > 90 mL/min (90-120)
--- NOTE | 2019-07-15 06:55 | NUR ---
REPORT RECEIVED. SHE IS ALERT SITTING UP IN BED WATCHING TV. IV INFUSING IN LEFT PORT WITH SITE CLEAR. D5LR WITH 20K AT 150CC. RESP EVEN WITHOUT LABOR. BED IN LOWEST POSITION AND LOCKED. CAREPLAN REVIEW DONE WITH SAFETY PRECAUTIONS IN PLACE.
[2019-07-15 09:31] VITALS: BP 154/100
--- NOTE | 2019-07-15 09:45 | NUR ---
LANRE B/P WAS 150/90
[2019-07-15 12:00] VITALS: BP 174/106
--- NOTE | 2019-07-15 12:44 | NUR ---
[facility] ANP HERE AND AWARE OF B/P RESULT 160/108, NEW ORDER FOR APPRESSOLINE 10MG IVP PRN WITH PARAMETERS OF SBP OF 160 AND DBP OF 108.
--- NOTE | 2019-07-15 14:01 | MORECARE ---
CASE MANAGEMENT DISCHARGE SUMMARY PATIENT: RAFAEL PETTY MARICEL UNIT: [id number] ADM DATE: 07/13/19 AGE: 44 : 75 SEX: F ROOM/BED: D.5152 AUTHOR: ROBERTO CRISTOBAL PHYSICIAN: REFERRING PHYSICIAN: ZEKE ONEIL DO DATE OF SERVICE: 07/15/19 Discharge Plan Patient Name: RAFAEL PETTY Facility: [facility]:[place] : 1975 Planned Disposition: Home Anticipated Discharge Date: 07/14/19 Discharge Date: Expected LOS: 1 Initial Reviewer: [email or web address] Initial Review Date: 07/13/2019 Generated: 07/15/19 3:01 pm DCP- Discharge Planning Updated by [id number]: Yony Wade on 07/13/19 3:[address] Patient Name: RAFAEL PETTY Admission Status: Urgent Accout number: [id number] Admission Date: 07-13-2019 : 1975 Admission Diagnosis: Attending: ZEKE ONEIL Current LOS: 1 Anticipated DC Date: 07-14-2019 Planned Disposition: Home Primary Insurance: MEDICARE A & B Discharge Planning Comments: CM MET WITH PTAND SON IN ROOM TO DISCUSS DISCHARGE PLANNING AND NEEDS. RAFAEL PETTY provided verbal consent to discuss current and ongoing needs with/in the presence of: SONAGUSTIN. PT REPORTS LIVING AT HOME INDEPENDENTLY WITH HER SPOUSE. PT HAS STANDARD WALKER WITH NO MEDICAL EQUIPMENT PROVIDER PREFERENCE. PT HAS NO OUTSIDE SERVICES ASSISTING IN THE HOME. CM DISCUSSED PT'S EXTENSIVE EMERGENCY ROOM AND HOSPITAL ADMISSION HISTORY FOR PAST YEAR. PT HAS HAD 13 INPATIENT ADMISSIONS AND 28 EMERGENCY ROOM VISITS THIS YEAR. PT STATES SHE HAS MS AND HAD STOMACH SURGERY TO HELP HER BLOOD PRSSURE AND HAS BEEN VERY SICK. CM DISCUSSED AVAILABILITY OF HOME HEALTH, REHAB SERVICES AND MEDICAL EQUIPMENT. PT DENIES DISCHARGE NEEDS, REPORTS HER FAMILY WILL PICK HER UP FOR DISCHARGE HOME. CM DISCUSSED OTHER LIVING ARRANGMENTS OUTSIDE THE HOME; PT STATES DR. STEELE DISCUSSED ALF PLACEMENT WITH HER AND SHE IS NOT GOING. PT STATES SHE WILL BE GOING HOME AT DISCHARGE. PT STATES SHE HAD A WHEELCHAIR THAT NO LONGER WORKS THAT SHE BOUGHT PERSONALLY AND WOULD LIKE A WHEELCHAIR IF THE DOCTOR WILL ORDER IT. PT HAS NOT CHOICE OF EQUIPMENT PROVIDER, SIGNED CHOICE FOR NO MEDICAL EQUIPMENT PROVIDER PREFERENCE. PT WILL DISCUSS ORDER FOR WHEELCHAIR WITH HER DOCTOR. PT REFUSED NURSING FACILITY. PT WILL DISCHARGE HOME WITH FAMILY, DENIES DISCHARGE NEEDS OTHER THAN A WHEELCHAIR. IF PHYSICIAN AGREES WITH NEED OF A WHEELCHAIR AND PROVIDES ORDER, CM WILL ATTEMPT TO ARRANGE FOR DISCHARGE HOME. CM TO CONTINUE TO FOLLOW AND ASSIST IF NEEDED. Bow Maker Custom: Yony Wade DCPIA - Discharge Planning Initial Assessment Updated by [id number]: Yony Wade on 07/13/19 4:03 pm * Is the patient Alert and Oriented? Yes * How many steps to enter\exit or inside your home? NONE * PCP DR. ONEIL * Pharmacy [facility] [place] * Preadmission Environment Home with Family * ADLs Independent * Equipment Walker * Other Equipment NO MEDICAL EQUIPMENT PROVIDER PREFERENCE * List name and contact numbers for known caregivers / representatives who currently or will assist patient after discharge: LATANYA PETTY, SPOUSE, AGUSTIN PETTY, SON, * Verbal permission to speak to the caregivers and representatives has been obtained from the patient. Yes * Community resources currently utilized None * Please name any agencies selected above. NONE * Additional services required to return to the preadmission environment? No * Can the patient safely return to the preadmission environment? Yes * Has this patient been hospitalized within the prior 30 days at any hospital? No External Providers External Provider: OTHER-OTHER Next Contact Date: Service Request Date: Service Type: Resolution: Reviewer: Comments: Coverage Notice Reviewer: [id number] - Yony Wade Notice Issued Date-Time: 07/13/2019 15:40 Notice Type: Patient Choice Letter Notice Delivered To: Patient Relationship to Patient: Property Management Supervisor Name: Delivery Method: HAND - Hand Delivered Anita Days: Prior Verbal Notification: Recipient Understood Notice: Yes Recipient Signature: Yes Med Rec Note Co-signed by Attending: Coverage Notice Comment: NO MEDICAL EQUIPMENT PROVIDER PREFERENCE. Reviewer: [id number] - Emma [place] Notice Issued Date-Time: 07/14/2019 17:00 Notice Type: Medicare Outpatient Observation Notice Notice Delivered To: Patient Relationship to Patient: Self Property Management Supervisor Name: Delivery Method: HAND - Hand Delivered Anita Days: Prior Verbal Notification: Recipient Understood Notice: Yes Recipient Signature: Yes Med Rec Note Co-signed by Attending: Coverage Notice Comment: Last DP export: 07/14/19 3:01 p Patient Name: RAFAEL PETTY Page [id number] at 1401 All edits/amendments must be made on the electronic document DICTATION DATE: 07/15/191400 GRAPHIC ENGINEER: MELANY 07/15/191400 RPT#: [id number] DC DATE: STATUS: ADM IN [facility] [address] [place] [address] END OF REPORT
--- NOTE | 2019-07-15 14:09 | MORECARE ---
CASE MANAGEMENT DISCHARGE SUMMARY PATIENT: RAFAEL PETTY MARICEL UNIT: [id number] ADM DATE: 07/13/19 AGE: 44 : 75 SEX: F ROOM/BED: D.8668 AUTHOR: ROBERTO CRISTOBAL PHYSICIAN: REFERRING PHYSICIAN: ZEKE ONEIL DO DATE OF SERVICE: 07/15/19 Discharge Plan Patient Name: RAFAEL PETTY Facility: [facility]:[place] : 1975 Planned Disposition: Home Anticipated Discharge Date: 07/14/19 Discharge Date: Expected LOS: 1 Initial Reviewer: [email or web address] Initial Review Date: 07/13/2019 Generated: 07/15/19 3:08 pm DCP- Discharge Planning Updated by [email or web address]: Yony Wade on 07/13/19 3:[address] Patient Name: RAFAEL PETTY Admission Status: Urgent Accout number: [id number] Admission Date: 07-13-2019 : 1975 Admission Diagnosis: Attending: ZEKE ONEIL Current LOS: 1 Anticipated DC Date: 07-14-2019 Planned Disposition: Home Primary Insurance: MEDICARE A & B Discharge Planning Comments: CM MET WITH PTAND SON IN ROOM TO DISCUSS DISCHARGE PLANNING AND NEEDS. RAFAEL PETTY provided verbal consent to discuss current and ongoing needs with/in the presence of: SONAGUSTIN. PT REPORTS LIVING AT HOME INDEPENDENTLY WITH HER SPOUSE. PT HAS STANDARD WALKER WITH NO MEDICAL EQUIPMENT PROVIDER PREFERENCE. PT HAS NO OUTSIDE SERVICES ASSISTING IN THE HOME. CM DISCUSSED PT'S EXTENSIVE EMERGENCY ROOM AND HOSPITAL ADMISSION HISTORY FOR PAST YEAR. PT HAS HAD 13 INPATIENT ADMISSIONS AND 28 EMERGENCY ROOM VISITS THIS YEAR. PT STATES SHE HAS MS AND HAD STOMACH SURGERY TO HELP HER BLOOD PRSSURE AND HAS BEEN VERY SICK. CM DISCUSSED AVAILABILITY OF HOME HEALTH, REHAB SERVICES AND MEDICAL EQUIPMENT. PT DENIES DISCHARGE NEEDS, REPORTS HER FAMILY WILL PICK HER UP FOR DISCHARGE HOME. CM DISCUSSED OTHER LIVING ARRANGMENTS OUTSIDE THE HOME; PT STATES DR. STEELE DISCUSSED CARE HOME PLACEMENT WITH HER AND SHE IS NOT GOING. PT STATES SHE WILL BE GOING HOME AT DISCHARGE. PT STATES SHE HAD A WHEELCHAIR THAT NO LONGER WORKS THAT SHE BOUGHT PERSONALLY AND WOULD LIKE A WHEELCHAIR IF THE DOCTOR WILL ORDER IT. PT HAS NOT CHOICE OF EQUIPMENT PROVIDER, SIGNED CHOICE FOR NO MEDICAL EQUIPMENT PROVIDER PREFERENCE. PT WILL DISCUSS ORDER FOR WHEELCHAIR WITH HER DOCTOR. PT REFUSED NURSING FACILITY. PT WILL DISCHARGE HOME WITH FAMILY, DENIES DISCHARGE NEEDS OTHER THAN A WHEELCHAIR. IF PHYSICIAN AGREES WITH NEED OF A WHEELCHAIR AND PROVIDES ORDER, CM WILL ATTEMPT TO ARRANGE FOR DISCHARGE HOME. CM TO CONTINUE TO FOLLOW AND ASSIST IF NEEDED. Wafer Fab Operator: Yony Wade DCPIA - Discharge Planning Initial Assessment Updated by [id number]: Yony Wade on 07/13/19 4:03 pm * Is the patient Alert and Oriented? Yes * How many steps to enter\exit or inside your home? NONE * PCP DR. ONEIL * Pharmacy [facility] [place] * Preadmission Environment Home with Family * ADLs Independent * Equipment Walker * Other Equipment NO MEDICAL EQUIPMENT PROVIDER PREFERENCE * List name and contact numbers for known caregivers / representatives who currently or will assist patient after discharge: LATANYA PETTY, SPOUSE, AGUSTIN PETTY, SON, * Verbal permission to speak to the caregivers and representatives has been obtained from the patient. Yes * Community resources currently utilized None * Please name any agencies selected above. NONE * Additional services required to return to the preadmission environment? No * Can the patient safely return to the preadmission environment? Yes * Has this patient been hospitalized within the prior 30 days at any hospital? No External Providers External Provider: OTHER-OTHER Next Contact Date: Service Request Date: Service Type: Resolution: Reviewer: Comments: Coverage Notice Reviewer: [id number] - Yony Wade Notice Issued Date-Time: 07/13/2019 15:40 Notice Type: Patient Choice Letter Notice Delivered To: Patient Relationship to Patient: Molding Technician Name: Delivery Method: HAND - Hand Delivered Anita Days: Prior Verbal Notification: Recipient Understood Notice: Yes Recipient Signature: Yes Med Rec Note Co-signed by Attending: Coverage Notice Comment: NO MEDICAL EQUIPMENT PROVIDER PREFERENCE. Reviewer: [id number] - Emma [place] Notice Issued Date-Time: 07/14/2019 17:00 Notice Type: Medicare Outpatient Observation Notice Notice Delivered To: Patient Relationship to Patient: Self Molding Technician Name: Delivery Method: HAND - Hand Delivered Anita Days: Prior Verbal Notification: Recipient Understood Notice: Yes Recipient Signature: Yes Med Rec Note Co-signed by Attending: Coverage Notice Comment: Last DP export: 07/15/19 1:01 p Patient Name: RAFAEL PETTY Page [phone] at 1409 All edits/amendments must be made on the electronic document DICTATION DATE: 07/15/191407 ADULT SERVICES LIBRARIAN: MELANY 07/15/191407 RPT#: [id number] DC DATE: STATUS: ADM IN [facility] [address] [place] [address] END OF REPORT
--- NOTE | 2019-07-15 14:16 | MORECARE ---
CASE MANAGEMENT DISCHARGE SUMMARY PATIENT: RAFAEL PETTY MARICEL UNIT: [id number] ADM DATE: 07/13/19 AGE: 44 : 75 SEX: F ROOM/BED: D.0296 AUTHOR: ROBERTO CRISTOBAL PHYSICIAN: REFERRING PHYSICIAN: ZEKE ONEIL DO DATE OF SERVICE: 07/15/19 Discharge Plan Patient Name: RAFAEL PETTY Facility: [facility]:[place] : 1975 Planned Disposition: Home Anticipated Discharge Date: 07/14/19 Discharge Date: Expected LOS: 1 Initial Reviewer: [email or web address] Initial Review Date: 07/13/2019 Generated: 07/15/19 3:16 pm Comments DCP- Discharge Planning Updated by [email or web address]: Claudia Sweet on 07/15/19 1:[address] Patient Name: RAFAEL PETTY Admission Status: Urgent Accout number: [id number] Admission Date: 07-13-2019 : 1975 Admission Diagnosis: Attending: ZEKE ONEIL Current LOS: 2 Anticipated DC Date: 07-14-2019 Planned Disposition: Home Primary Insurance: MEDICARE A & B Discharge Planning Comments: CM SPOKE WITH PATIENT ABOUT DC NEEDS. STATES NEEDS A WHEEL CHAIR AND WANTS IT FROM [facility] [place]. [facility] IS CLOS[facility] TODAY BUT I FAXED THE ORDER AND FS. I SPOKE TO THE PATIENT AND SHE WILL CHECK WITH THEM WEDNESDAY WHEN THEY OPEN. CM TO FOLLOW. Chocolate Packer: Claudia Sweet DCP- Discharge Planning Updated by [id number]: Yony Wade on 07/13/19 3:[address] Patient Name: RAFAEL PETTY Admission Status: Urgent Accout number: [id number] Admission Date: 07-13-2019 : 1975 Admission Diagnosis: Attending: ZEKE ONEIL Current LOS: 1 Anticipated DC Date: 07-14-2019 Planned Disposition: Home Primary Insurance: MEDICARE A & B Discharge Planning Comments: CM MET WITH PTAND SON IN ROOM TO DISCUSS DISCHARGE PLANNING AND NEEDS. RAFAEL PETTY provided verbal consent to discuss current and ongoing needs with/in the presence of: SONAGUSTIN. PT REPORTS LIVING AT HOME INDEPENDENTLY WITH HER SPOUSE. PT HAS STANDARD WALKER WITH NO MEDICAL EQUIPMENT PROVIDER PREFERENCE. PT HAS NO OUTSIDE SERVICES ASSISTING IN THE HOME. CM DISCUSSED PT'S EXTENSIVE EMERGENCY ROOM AND HOSPITAL ADMISSION HISTORY FOR PAST YEAR. PT HAS HAD 13 INPATIENT ADMISSIONS AND 28 EMERGENCY ROOM VISITS THIS YEAR. PT STATES SHE HAS MS AND HAD STOMACH SURGERY TO HELP HER BLOOD PRSSURE AND HAS BEEN VERY SICK. CM DISCUSSED AVAILABILITY OF HOME HEALTH, REHAB SERVICES AND MEDICAL EQUIPMENT. PT DENIES DISCHARGE NEEDS, REPORTS HER FAMILY WILL PICK HER UP FOR DISCHARGE HOME. CM DISCUSSED OTHER LIVING ARRANGMENTS OUTSIDE THE HOME; PT STATES DR. STEELE DISCUSSED ALF PLACEMENT WITH HER AND SHE IS NOT GOING. PT STATES SHE WILL BE GOING HOME AT DISCHARGE. PT STATES SHE HAD A WHEELCHAIR THAT NO LONGER WORKS THAT SHE BOUGHT PERSONALLY AND WOULD LIKE A WHEELCHAIR IF THE DOCTOR WILL ORDER IT. PT HAS NOT CHOICE OF EQUIPMENT PROVIDER, SIGNED CHOICE FOR NO MEDICAL EQUIPMENT PROVIDER PREFERENCE. PT WILL DISCUSS ORDER FOR WHEELCHAIR WITH HER DOCTOR. PT REFUSED NURSING FACILITY. PT WILL DISCHARGE HOME WITH FAMILY, DENIES DISCHARGE NEEDS OTHER THAN A WHEELCHAIR. IF PHYSICIAN AGREES WITH NEED OF A WHEELCHAIR AND PROVIDES ORDER, CM WILL ATTEMPT TO ARRANGE FOR DISCHARGE HOME. CM TO CONTINUE TO FOLLOW AND ASSIST IF NEEDED. Chocolate Packer: Yony Wade DCPIA - Discharge Planning Initial Assessment Updated by [email or web address]: Yony Wade on 07/13/19 4:03 pm * Is the patient Alert and Oriented? Yes * How many steps to enter\exit or inside your home? NONE * PCP DR. ONEIL * Pharmacy [facility] IN [place] * Preadmission Environment Home with Family * ADLs Independent * Equipment Walker * Other Equipment NO MEDICAL EQUIPMENT PROVIDER PREFERENCE * List name and contact numbers for known caregivers / representatives who currently or will assist patient after discharge: LATANYA PETTY, SPOUSE, AGUSTIN PETTY, SON, * Verbal permission to speak to the caregivers and representatives has been obtained from the patient. Yes * Community resources currently utilized None * Please name any agencies selected above. NONE * Additional services required to return to the preadmission environment? No * Can the patient safely return to the preadmission environment? Yes * Has this patient been hospitalized within the prior 30 days at any hospital? No Coverage Notice Reviewer: [id number] - Yony Wade Notice Issued Date-Time: 07/13/2019 15:40 Notice Type: Patient Choice Letter Notice Delivered To: Patient Relationship to Patient: Sexual Assault Social Worker Name: Delivery Method: HAND - Hand Delivered Anita Days: Prior Verbal Notification: Recipient Understood Notice: Yes Recipient Signature: Yes Med Rec Note Co-signed by Attending: Coverage Notice Comment: NO MEDICAL EQUIPMENT PROVIDER PREFERENCE. Reviewer: [id number] Noemy [place] Notice Issued Date-Time: 07/14/2019 17:00 Notice Type: Medicare Outpatient Observation Notice Notice Delivered To: Patient Relationship to Patient: Self Sexual Assault Social Worker Name: Delivery Method: HAND - Hand Delivered Anita Days: Prior Verbal Notification: Recipient Understood Notice: Yes Recipient Signature: Yes Med Rec Note Co-signed by Attending: Coverage Notice Comment: Last DP export: 07/15/19 1:09 p Patient Name: RAFAEL PETTY Page [phone] at 1416 All edits/amendments must be made on the electronic document DICTATION DATE: 07/15/196 TROMPER: MELANY 07/15/19 1416 RPT#: [id number] DC DATE: STATUS: ADM IN [facility] [address] [place] [address] END OF REPORT
[2019-07-15] MEDS ORDERED: AMOXICILLIN500 M1 PO (15:13)
--- NOTE | 2019-07-15 15:48 | NUR ---
SHE STATED WHEN SHE GOT UP TO GO TO THE BATHROOM SHE BECAME DIZZY AND NOW SHE HAS BLURRY VISION. B/P 150/90 LANRE. HR 90, O2 SAT IS 100%. FSBS IS 61, I GAVE HER SOME APPLE JUICE WITH SUGAR. WILL RECHECK FSBS. HER RIDE IS IN [place] AT THIS TIME SO WILL BE AWHILE BEFORE THEY COME.
--- NOTE | 2019-07-15 16:43 | NUR ---
RECHECK ACCU CHECK OF 66. CALLED [facility] WITH NEW ORDER TO GIVE D50 ONE AMP IVP TO GET HER BLOOD SUGAR UP AND DISCHARGE HER. RIGHT NOW HER FAMILY IS IN [place] AT A BUT THEY ARE COMING TO GET HER
--- NOTE | 2019-07-15 17:02 | NUR ---
ONE AMP D5O GIVEN IVP PER ORDER
[2019-07-15 18:14] VITALS: BP 174/107
--- NOTE | 2019-07-15 18:15 | NUR ---
RECHECK IS 93 ON BLOOD SUGAR HER FAMILY IS HERE BUT SHE STATES SHE IS NOT FEELING ANY BETTER CONTINUES TO HAVE BLURRY VISION AND FEELING DIZZY. B/P IS 140/80. FAMILY HAS ARRIVED BUT THEY DO NOT WANT TO SIGN HER DISCHARGE PAPERS OR TAKE HER HOME. WILL LET ONCOMING SHIFT KNOW
--- NOTE | 2019-07-15 19:47 | NUR ---
PT D/C VIA W/C WITH FAMILY.
[2019-07-15] MEDS ORDERED: FLAGYL500 MG PO (23:25)
[2019-07-15] MEDS ORDERED: CIPRO500 MG PO (23:25)
--- NOTE | 2019-07-16 15:27 | MORECARE ---
CASE MANAGEMENT DISCHARGE SUMMARY PATIENT: RAFAEL PETTY MARICEL UNIT: [id number] ADM DATE: 07/13/19 AGE: 44 : 75 SEX: F ROOM/BED: D.5656 AUTHOR: ROBERTO CRISTOBAL PHYSICIAN: REFERRING PHYSICIAN: ZEKE ONEIL DO DATE OF SERVICE: 07/16/19 Discharge Plan Patient Name: RAFAEL PETTY Facility: [facility]:[place] : 1975 Planned Disposition: Home Anticipated Discharge Date: 07/14/19 Discharge Date: 07/15/2019 Expected LOS: 1 Initial Reviewer: [email or web address] Initial Review Date: 07/13/2019 Generated: 07/16/19 4:27 pm Comments DCP- Discharge Planning Updated by [email or web address]: Claudia Sweet on 07/15/19 2:[address] Patient Name: RAFAEL PETTY Admission Status: Urgent Accout number: [id number] Admission Date: 07-13-2019 : 1975 Admission Diagnosis: Attending: ZEKE ONEIL Current LOS: 2 Anticipated DC Date: 07-14-2019 Planned Disposition: Home Primary Insurance: MEDICARE A & B Discharge Planning Comments: CM SPOKE WITH PATIENT ABOUT DC NEEDS. STATES NEEDS A WHEEL CHAIR AND WANTS IT FROM [facility]. [facility] IS CL[facility] TODAY BUT I FAXED THE ORDER AND FS. I SPOKE TO THE PATIENT AND SHE WILL CHECK WITH THEM WEDNESDAY WHEN THEY OPEN. CM TO FOLLOW. Digital Specialist: Claudia Sweet DCP- Discharge Planning Updated by [email or web address]: Yony Wade on 07/13/19 4:[address] Patient Name: RAFAEL PETTY Admission Status: Urgent Accout number: [id number] Admission Date: 07-13-2019 : 1975 Admission Diagnosis: Attending: ZEKE ONEIL Current LOS: 1 Anticipated DC Date: 07-14-2019 Planned Disposition: Home Primary Insurance: MEDICARE A & B Discharge Planning Comments: CM MET WITH PTAND SON IN ROOM TO DISCUSS DISCHARGE PLANNING AND NEEDS. RAFAEL PETTY provided verbal consent to discuss current and ongoing needs with/in the presence of: SONAGUSTIN. PT REPORTS LIVING AT HOME INDEPENDENTLY WITH HER SPOUSE. PT HAS STANDARD WALKER WITH NO MEDICAL EQUIPMENT PROVIDER PREFERENCE. PT HAS NO OUTSIDE SERVICES ASSISTING IN THE HOME. CM DISCUSSED PT'S EXTENSIVE EMERGENCY ROOM AND HOSPITAL ADMISSION HISTORY FOR PAST YEAR. PT HAS HAD 13 INPATIENT ADMISSIONS AND 28 EMERGENCY ROOM VISITS THIS YEAR. PT STATES SHE HAS MS AND HAD STOMACH SURGERY TO HELP HER BLOOD PRSSURE AND HAS BEEN VERY SICK. CM DISCUSSED AVAILABILITY OF HOME HEALTH, REHAB SERVICES AND MEDICAL EQUIPMENT. PT DENIES DISCHARGE NEEDS, REPORTS HER FAMILY WILL PICK HER UP FOR DISCHARGE HOME. CM DISCUSSED OTHER LIVING ARRANGMENTS OUTSIDE THE HOME; PT STATES DR. STEELE DISCUSSED RETIREMENT PLACEMENT WITH HER AND SHE IS NOT GOING. PT STATES SHE WILL BE GOING HOME AT DISCHARGE. PT STATES SHE HAD A WHEELCHAIR THAT NO LONGER WORKS THAT SHE BOUGHT PERSONALLY AND WOULD LIKE A WHEELCHAIR IF THE DOCTOR WILL ORDER IT. PT HAS NOT CHOICE OF EQUIPMENT PROVIDER, SIGNED CHOICE FOR NO MEDICAL EQUIPMENT PROVIDER PREFERENCE. PT WILL DISCUSS ORDER FOR WHEELCHAIR WITH HER DOCTOR. PT REFUSED NURSING FACILITY. PT WILL DISCHARGE HOME WITH FAMILY, DENIES DISCHARGE NEEDS OTHER THAN A WHEELCHAIR. IF PHYSICIAN AGREES WITH NEED OF A WHEELCHAIR AND PROVIDES ORDER, CM WILL ATTEMPT TO ARRANGE FOR DISCHARGE HOME. CM TO CONTINUE TO FOLLOW AND ASSIST IF NEEDED. Digital Specialist: Yony Wade DCPIA - Discharge Planning Initial Assessment Updated by [email or web address]: Yony Wade on 07/13/19 4:03 pm * Is the patient Alert and Oriented? Yes * How many steps to enter\exit or inside your home? NONE * PCP DR. ONEIL * Pharmacy [facility] * Preadmission Environment Home with Family * ADLs Independent * Equipment Walker * Other Equipment NO MEDICAL EQUIPMENT PROVIDER PREFERENCE * List name and contact numbers for known caregivers / representatives who currently or will assist patient after discharge: LATANYA PETTY, SPOUSE, AGUSTIN PETTY, SON, * Verbal permission to speak to the caregivers and representatives has been obtained from the patient. Yes * Community resources currently utilized None * Please name any agencies selected above. NONE * Additional services required to return to the preadmission environment? No * Can the patient safely return to the preadmission environment? Yes * Has this patient been hospitalized within the prior 30 days at any hospital? No Coverage Notice Reviewer: [id number] - Yony Wade Notice Issued Date-Time: 07/13/2019 15:40 Notice Type: Patient Choice Letter Notice Delivered To: Patient Relationship to Patient: Supervisor Chemical Name: Delivery Method: HAND - Hand Delivered Anita Days: Prior Verbal Notification: Recipient Understood Notice: Yes Recipient Signature: Yes Med Rec Note Co-signed by Attending: Coverage Notice Comment: NO MEDICAL EQUIPMENT PROVIDER PREFERENCE. Reviewer: [id number] Noemy Fletcher Notice Issued Date-Time: 07/14/2019 17:00 Notice Type: Medicare Outpatient Observation Notice Notice Delivered To: Patient Relationship to Patient: Self Supervisor Chemical Name: Delivery Method: HAND - Hand Delivered Anita Days: Prior Verbal Notification: Recipient Understood Notice: Yes Recipient Signature: Yes Med Rec Note Co-signed by Attending: Coverage Notice Comment: Last DP export: 07/15/19 2:16 p Patient Name: RAFAEL PETTY Page [phone] at 1527 All edits/amendments must be made on the electronic document DICTATION DATE: 07/16/191526 REAR LOAD TRUCK DRIVER: MELANY 07/16/19 1527 RPT#: [id number] DC DATE:07/15/19 STATUS: DIS IN [facility] [address] [place] [address] END OF REPORT
== END 2019-07-15 20:00 | disposition home or self-care (01) ==
LOC: D.M2 11:48 → OBSVTIME 11:49 → D.M2 07-15 20:00
PROVIDERS: Family Medicine; ADMIT Family Medicine; ATTEND Family Medicine
DX: E86.0 Dehydration (principal); R10.9 Unspecified abdominal pain; G35 Multiple sclerosis; I10 Essential (primary) hypertension; K21.9 Gastro-esophageal reflux disease without esophagitis; J45.909 Unspecified asthma, uncomplicated; J44.9 Chronic obstructive pulmonary disease, unspecified; R47.02 Dysphasia; G62.9 Polyneuropathy, unspecified; F60.89 Other specific personality disorders; R19.7 Diarrhea, unspecified; R11.10 Vomiting, unspecified; Z98.84 Bariatric surgery status; R30.0 Dysuria; N39.0 Urinary tract infection, site not specified; E11.65 Type 2 diabetes mellitus with hyperglycemia

== ENCOUNTER 2019-07-15 19:48 | Emergency (ER) | payer MEDICARE ==
[~2019-07-15] VITALS: Ht 162.6 cm; Wt 5.9 kg
[~2019-07-15 19:48] MED LIST changes: +AMOXICILLIN500 M1 PO
[2019-07-15 20:40] VITALS: Ht 162.6 cm; Wt 5.9 kg
[2019-07-15 21:14] LABS: BASOPHILS 0.3 % (0-2); EOSINOPHILS 7.4 % (0-7); HEMOGLOBIN 10.6 g/dL (12-16); IMMATURE GRANULOCYTES 0.2 % (0-5); LYMPHOCYTES 30.8 % (15-50); MCH 28.7 pg (26.0-34.0); MCHC 31.2 g/dL (31.0-37.0); MCV 92.1 fL (80.0-100.0); MONOCYTES 6.7 % (2-11); NEUTROPHILS 54.6 % (40-80); PLATELET COUNT 209 10x3/uL (130-400); RBC 3.69 10x6/uL (4.00-5.40); WBC 5.8 10x3/uL (4.8-10.8)
[2019-07-15 21:24] LABS: CALC OSMOLALITY 277 mosm/kg (275-300); CALCIUM 8.5 mg/dL (8.5-10.1); CARBON DIOXIDE 29.2 mmol/L (21.0-32.0); CHLORIDE - SERUM 106 mmol/L (98-107); CREATININE - SERUM 0.8 mg/dL (0.6-1.3); GLUCOSE 84 mg/dL (74-106); POTASSIUM - SERUM 4.6 mmol/L (3.5-5.1); SODIUM 141 mmol/L (136-145); UREA NITROGEN 8 mg/dL (7-18); eGFR NON AFRICAN AMERICAN 82 mL/min (90-120)
[2019-07-15 21:28] LABS: APPEARANCE CLEAR (CLEAR); BILIRUBIN NEGATIVE (NEGATIVE); COLOR STRAW (YELLOW); GLUCOSE NEGATIVE (NEGATIVE); KETONE NEGATIVE (NEGATIVE); NITRITE NEGATIVE (NEGATIVE); PROTEIN NEGATIVE (NEGATIVE); SPECIFIC GRAVITY 1.005 (1.005-1.020); UROBILINOGEN NORMAL (NORMAL)
[2019-07-15 21:32] LABS: BACTERIA FEW /hpf (NEGATIVE); EPITHELIAL CELLS 0-5 /hpf (0-5); RED CELLS - URINE NONE SEEN /hpf (0-5); WHITE CELLS - URINE 0-5 /hpf (NEGATIVE)
[2019-07-15 21:37] LABS: ALBUMIN 2.8 g/dL (3.4-5.0); ALKALINE PHOSPHATASE 100 U/L (46-116); ALT (SGPT) 12 U/L (10-68); BILIRUBIN - TOTAL 0.34 mg/dL (0.2-1.3); LIPASE 46 U/L (73-393); MAGNESIUM - SERUM 1.5 mg/dL (1.8-2.4); PRO BNP 698 pg/mL (0-125); PROTEIN - SERUM 5.8 g/dL (6.4-8.2); THYROID STIMULATING HORMONE 2.33 uIU/mL (0.36-3.74); TROPONIN-I < 0.017 ng/mL (0.000-0.060)
[2019-07-15] MEDS ORDERED: CIPRO500 MG PO (23:25)
[2019-07-15] MEDS ORDERED: FLAGYL500 MG PO (23:25)
[2019-07-16 00:14] VITALS: BP 154/98
== END 2019-07-16 00:14 | disposition home or self-care (01) ==
LOC: D.ER 19:48
PROVIDERS: Family Medicine
DX: G89.29 Other chronic pain (principal); E16.2 Hypoglycemia, unspecified; I10 Essential (primary) hypertension

== ENCOUNTER 2019-07-17 12:17 | Emergency (ER) | payer MEDICARE ==
[~2019-07-17] VITALS: Ht 162.6 cm; Wt 59.1 kg
[~2019-07-17 12:17] MED LIST changes: +CIPRO500 MG PO
[2019-07-17 12:21] VITALS: Ht 162.6 cm; Wt 59.1 kg
[2019-07-17 13:32] LABS: BASOPHILS 0.2 % (0-2); EOSINOPHILS 2.9 % (0-7); HEMATOCRIT 34.8 % (36.0-48.0); HEMOGLOBIN 11.1 g/dL (12-16); IMMATURE GRANULOCYTES 0.2 % (0-5); LYMPHOCYTES 24.5 % (15-50); MCH 28.7 pg (26.0-34.0); MCHC 31.9 g/dL (31.0-37.0); MEAN PLATELET VOLUME 10.3 fL (7.4-10.4); MONOCYTES 5.2 % (2-11); PLATELET COUNT 232 10x3/uL (130-400); RBC 3.87 10x6/uL (4.00-5.40); RDW 16.6 % (11.5-14.5); WBC 5.2 10x3/uL (4.8-10.8)
[2019-07-17 13:33] LABS: MCV 89.9 fL (80.0-100.0)
[2019-07-17 13:39] LABS: CALC OSMOLALITY 279 mosm/kg (275-300); CALCIUM 8.4 mg/dL (8.5-10.1); CHLORIDE - SERUM 107 mmol/L (98-107); CREATININE - SERUM 0.6 mg/dL (0.6-1.3); GLUCOSE 92 mg/dL (74-106); POTASSIUM - SERUM 3.9 mmol/L (3.5-5.1); SODIUM 140 mmol/L (136-145); UREA NITROGEN 15 mg/dL (7-18); eGFR NON AFRICAN AMERICAN > 90 mL/min (90-120)
[2019-07-17 13:48] LABS: ALKALINE PHOSPHATASE 114 U/L (46-116); AMYLASE - SERUM 56 U/L (25-115); BILIRUBIN - TOTAL 0.46 mg/dL (0.2-1.3); LIPASE 269 U/L (73-393); PROTEIN - SERUM 6.1 g/dL (6.4-8.2)
[2019-07-17 13:49] LABS: ALT (SGPT) 17 U/L (10-68); TROPONIN-I < 0.017 ng/mL (0.000-0.060)
[2019-07-17 15:30] LABS: APPEARANCE CLEAR (CLEAR); BILIRUBIN NEGATIVE (NEGATIVE); COLOR YELLOW (YELLOW); GLUCOSE NEGATIVE (NEGATIVE); KETONE NEGATIVE (NEGATIVE); NITRITE NEGATIVE (NEGATIVE); PROTEIN NEGATIVE (NEGATIVE); SPECIFIC GRAVITY 1.015 (1.005-1.020); UROBILINOGEN NORMAL (NORMAL)
[2019-07-17 15:32] LABS: BACTERIA FEW /hpf (NEGATIVE); EPITHELIAL CELLS OCC /hpf (0-5); RED CELLS - URINE 0-5 /hpf (0-5); WHITE CELLS - URINE 0-5 /hpf (NEGATIVE)
[2019-07-17 17:45] VITALS: BP 143/94
== END 2019-07-17 17:45 | disposition home or self-care (01) ==
LOC: D.ER 12:17
PROVIDERS: Emergency Medicine
DX: R42 Dizziness and giddiness (principal); W19.XXXA Unspecified fall, initial encounter; I10 Essential (primary) hypertension

== ENCOUNTER 2019-07-19 01:31 | Emergency (ER) | payer MEDICARE ==
[~2019-07-19] VITALS: Ht 162.6 cm; Wt 75.0 kg
[2019-07-19 01:38] VITALS: Ht 162.6 cm; Wt 75.0 kg
[2019-07-19 02:02] LABS: BASOPHILS 0.3 % (0-2); EOSINOPHILS 1.3 % (0-7); HEMATOCRIT 33.4 % (36.0-48.0); HEMOGLOBIN 10.5 g/dL (12-16); IMMATURE GRANULOCYTES 0.2 % (0-5); LYMPHOCYTES 31.9 % (15-50); MCH 28.6 pg (26.0-34.0); MCHC 31.4 g/dL (31.0-37.0); MEAN PLATELET VOLUME 10.3 fL (7.4-10.4); MONOCYTES 6.8 % (2-11); NEUTROPHILS 59.5 % (40-80); PLATELET COUNT 248 10x3/uL (130-400); RBC 3.67 10x6/uL (4.00-5.40); RDW 16.5 % (11.5-14.5); WBC 6.2 10x3/uL (4.8-10.8)
[2019-07-19 02:13] LABS: CALC OSMOLALITY 290 mosm/kg (275-300); CALCIUM 8.2 mg/dL (8.5-10.1); CARBON DIOXIDE 27.4 mmol/L (21.0-32.0); CHLORIDE - SERUM 110 mmol/L (98-107); CREATININE - SERUM 0.7 mg/dL (0.6-1.3); GLUCOSE 86 mg/dL (74-106); POTASSIUM - SERUM 3.9 mmol/L (3.5-5.1); SODIUM 145 mmol/L (136-145); eGFR NON AFRICAN AMERICAN > 90 mL/min (90-120)
[2019-07-19 02:14] LABS: APPEARANCE CLEAR (CLEAR); BILIRUBIN NEGATIVE (NEGATIVE); COLOR YELLOW (YELLOW); GLUCOSE NEGATIVE (NEGATIVE); KETONE NEGATIVE (NEGATIVE); NITRITE NEGATIVE (NEGATIVE); PROTEIN NEGATIVE (NEGATIVE); UROBILINOGEN NORMAL (NORMAL)
[2019-07-19 02:15] LABS: BACTERIA FEW /hpf (NEGATIVE); EPITHELIAL CELLS 0-5 /hpf (0-5); RED CELLS - URINE 0-5 /hpf (0-5); WHITE CELLS - URINE 0-5 /hpf (NEGATIVE)
[2019-07-19 02:18] LABS: UREA NITROGEN 22 mg/dL (7-18)
[2019-07-19 02:19] LABS: ALBUMIN 3.2 g/dL (3.4-5.0); ALKALINE PHOSPHATASE 117 U/L (46-116); AMYLASE - SERUM 69 U/L (25-115); BILIRUBIN - TOTAL 0.19 mg/dL (0.2-1.3); LIPASE 221 U/L (73-393); PROTEIN - SERUM 6.4 g/dL (6.4-8.2); TROPONIN-I < 0.017 ng/mL (0.000-0.060)
[2019-07-19 02:20] LABS: ALT (SGPT) 22 U/L (10-68)
[2019-07-19] MEDS ORDERED: DIFLUCAN150 MG PO (05:20)
[2019-07-19 05:40] VITALS: BP 172/102
== END 2019-07-19 05:30 | disposition home or self-care (01) ==
LOC: D.ER 01:31
PROVIDERS: Family Medicine
DX: R10.9 Unspecified abdominal pain (principal); B37.3 Candidiasis of vulva and vagina

== ENCOUNTER 2019-08-26 17:53 | Emergency (ER) | payer MEDICARE ==
[~2019-08-26] VITALS: Ht 162.6 cm; Wt 59.1 kg
[2019-08-26 17:59] VITALS: Ht 162.6 cm; Wt 59.1 kg
[2019-08-26 18:50] LABS: APPEARANCE CLEAR (CLEAR); COLOR STRAW (YELLOW)
[2019-08-26 18:51] LABS: BILIRUBIN NEGATIVE (NEGATIVE); GLUCOSE NEGATIVE (NEGATIVE); KETONE NEGATIVE (NEGATIVE); NITRITE NEGATIVE (NEGATIVE); PROTEIN NEGATIVE (NEGATIVE); UROBILINOGEN NORMAL (NORMAL)
[2019-08-26 18:53] LABS: BACTERIA FEW /hpf (NEGATIVE); EPITHELIAL CELLS 0-5 /hpf (0-5); RED CELLS - URINE 0-5 /hpf (0-5); WHITE CELLS - URINE 0-5 /hpf (NEGATIVE)
[2019-08-26 18:59] LABS: BASOPHILS 0.7 % (0-2); EOSINOPHILS 1.4 % (0-7); HEMATOCRIT 35.9 % (36.0-48.0); HEMOGLOBIN 11.4 g/dL (12-16); IMMATURE GRANULOCYTES 0.2 % (0-5); LYMPHOCYTES 31.4 % (15-50); MCH 28.6 pg (26.0-34.0); MCHC 31.8 g/dL (31.0-37.0); MEAN PLATELET VOLUME 10.7 fL (7.4-10.4); MONOCYTES 6.5 % (2-11); NEUTROPHILS 59.8 % (40-80); PLATELET COUNT 149 10x3/uL (130-400); RBC 3.99 10x6/uL (4.00-5.40); WBC 4.3 10x3/uL (4.8-10.8)
[2019-08-26 19:12] LABS: CALC OSMOLALITY 283 mosm/kg (275-300); CALCIUM 8.8 mg/dL (8.5-10.1); CARBON DIOXIDE 27.7 mmol/L (21.0-32.0); CHLORIDE - SERUM 107 mmol/L (98-107); CREATININE - SERUM 0.6 mg/dL (0.6-1.3); GLUCOSE 75 mg/dL (74-106); POTASSIUM - SERUM 3.2 mmol/L (3.5-5.1); SODIUM 142 mmol/L (136-145); UREA NITROGEN 19 mg/dL (7-18); eGFR NON AFRICAN AMERICAN > 90 mL/min (90-120)
[2019-08-26 19:18] LABS: ALBUMIN 3.1 g/dL (3.4-5.0); ALKALINE PHOSPHATASE 108 U/L (46-116); ALT (SGPT) 35 U/L (10-68); BILIRUBIN - TOTAL 0.22 mg/dL (0.2-1.3); PROTEIN - SERUM 6.1 g/dL (6.4-8.2)
[2019-08-26] MEDS ORDERED: CYCLOBENZAPRINE10 MG PO (19:33)
[2019-08-26 20:15] VITALS: BP 167/108
== END 2019-08-26 20:15 | disposition home or self-care (01) ==
LOC: D.ER 17:53
PROVIDERS: Family Medicine
DX: M25.50 Pain in unspecified joint (principal); G35 Multiple sclerosis; E16.2 Hypoglycemia, unspecified; I10 Essential (primary) hypertension

== ENCOUNTER 2019-09-02 12:14 | Emergency (ER) | payer MEDICARE ==
[~2019-09-02] VITALS: Ht 162.6 cm; Wt 59.1 kg
[~2019-09-02 12:14] MED LIST changes: +CYCLOBENZAPRINE10 MG PO
[2019-09-02 12:20] VITALS: Ht 162.6 cm; Wt 59.1 kg
[2019-09-02 12:54] LABS: BASOPHILS 0.5 % (0-2); EOSINOPHILS 1.5 % (0-7); HEMATOCRIT 42.8 % (36.0-48.0); HEMOGLOBIN 13.5 g/dL (12-16); LYMPHOCYTES 30.8 % (15-50); MCH 28.8 pg (26.0-34.0); MCHC 31.5 g/dL (31.0-37.0); MCV 91.5 fL (80.0-100.0); MEAN PLATELET VOLUME 10.5 fL (7.4-10.4); MONOCYTES 8.3 % (2-11); NEUTROPHILS 58.9 % (40-80); PLATELET COUNT 271 10x3/uL (130-400); RBC 4.68 10x6/uL (4.00-5.40); RDW 15.1 % (11.5-14.5)
[2019-09-02 13:06] LABS: CALC OSMOLALITY 287 mosm/kg (275-300); CALCIUM 8.6 mg/dL (8.5-10.1); CARBON DIOXIDE 22.8 mmol/L (21.0-32.0); CHLORIDE - SERUM 108 mmol/L (98-107); POTASSIUM - SERUM 3.1 mmol/L (3.5-5.1); SODIUM 142 mmol/L (136-145); UREA NITROGEN 33 mg/dL (7-18); eGFR NON AFRICAN AMERICAN 64 mL/min (90-120)
[2019-09-02 13:07] LABS: GLUCOSE 55 mg/dL (74-106)
[2019-09-02 13:08] LABS: APTT 27.7 SECONDS (22.8-39.4); INR 1.05 (0.85-1.17); PROTIME 13.2 SECONDS (11.6-15.0)
[2019-09-02 13:20] LABS: ALBUMIN 3.7 g/dL (3.4-5.0); ALKALINE PHOSPHATASE 129 U/L (46-116); ALT (SGPT) 28 U/L (10-68); BILIRUBIN - TOTAL 0.23 mg/dL (0.2-1.3); CKMB 0.6 U/L (0.0-3.6); CREATINE KINASE 20 UL (21-215); MAGNESIUM - SERUM 2.2 mg/dL (1.8-2.4); PROTEIN - SERUM 7.1 g/dL (6.4-8.2)
[2019-09-02 13:21] LABS: TROPONIN-I < 0.017 ng/mL (0.000-0.060)
[2019-09-02 14:27] VITALS: BP 146/98
== END 2019-09-02 14:27 | disposition home or self-care (01) ==
LOC: D.ER 12:14
PROVIDERS: Family Medicine
DX: R07.9 Chest pain, unspecified (principal); E86.0 Dehydration; E16.2 Hypoglycemia, unspecified; E87.6 Hypokalemia; I10 Essential (primary) hypertension

== ENCOUNTER 2019-10-07 22:02 | Emergency (ER) | payer MEDICARE ==
[~2019-10-07] VITALS: Ht 162.6 cm; Wt 59.1 kg
[2019-10-07 22:06] VITALS: Ht 162.6 cm; Wt 59.1 kg
[2019-10-07 22:28] LABS: BASOPHILS 0.4 % (0-2); EOSINOPHILS 1.5 % (0-7); HEMATOCRIT 43.4 % (36.0-48.0); HEMOGLOBIN 14.3 g/dL (12-16); IMMATURE GRANULOCYTES 0.2 % (0-5); MCH 28.7 pg (26.0-34.0); MCHC 32.9 g/dL (31.0-37.0); MEAN PLATELET VOLUME 11.3 fL (7.4-10.4); MONOCYTES 5.6 % (2-11); NEUTROPHILS 61.3 % (40-80); RBC 4.99 10x6/uL (4.00-5.40); RDW 13.5 % (11.5-14.5); WBC 8.2 10x3/uL (4.8-10.8)
[2019-10-07 22:29] LABS: PLATELET COUNT 101 10x3/uL (130-400)
[2019-10-07 22:35] LABS: CALCIUM 8.6 mg/dL (8.5-10.1); CARBON DIOXIDE 25.4 mmol/L (21.0-32.0); CREATININE - SERUM 1.1 mg/dL (0.6-1.3); POTASSIUM - SERUM 3.4 mmol/L (3.5-5.1)
[2019-10-07 22:40] LABS: ALBUMIN 3.6 g/dL (3.4-5.0); BILIRUBIN - TOTAL 0.24 mg/dL (0.2-1.3); PROTEIN - SERUM 6.9 g/dL (6.4-8.2)
[2019-10-07 23:00] LABS: APPEARANCE CLEAR (CLEAR); BILIRUBIN NEGATIVE (NEGATIVE); COLOR YELLOW (YELLOW); GLUCOSE NEGATIVE (NEGATIVE); KETONE NEGATIVE (NEGATIVE); NITRITE NEGATIVE (NEGATIVE); PROTEIN NEGATIVE (NEGATIVE); UROBILINOGEN NORMAL (NORMAL)
[2019-10-07 23:44] LABS: AMYLASE - SERUM 103 U/L (25-115); LIPASE 308 U/L (73-393)
[2019-10-07 23:57] VITALS: BP 174/95
== END 2019-10-07 23:57 | disposition home or self-care (01) ==
LOC: D.ER 22:02
PROVIDERS: Emergency Medicine
DX: K31.84 Gastroparesis (principal); K59.00 Constipation, unspecified; R10.9 Unspecified abdominal pain; I10 Essential (primary) hypertension; J45.909 Unspecified asthma, uncomplicated; G35 Multiple sclerosis; R11.2 Nausea with vomiting, unspecified

== ENCOUNTER → 2020-12-20 14:08 | Outpatient (CLI) | payer MEDICARE ==
[2020-11-06 17:36] VITALS: BMI 22.3
[2020-12-20 14:24] LABS: BASOPHILS 0.2 % (0-2); EOSINOPHILS 0.2 % (0-7); HEMATOCRIT 39.1 % (36.0-48.0); HEMOGLOBIN 11.8 g/dL (12-16); IMMATURE GRANULOCYTES 0.3 % (0-5); LYMPHOCYTE ABS# 1.78 10x3/uL (1.18-3.74); LYMPHOCYTES 31.1 % (15-50); MCH 27.6 pg (26.0-34.0); MCHC 30.2 g/dL (31.0-37.0); MCV 91.6 fL (80.0-100.0); MEAN PLATELET VOLUME 10.7 fL (7.4-10.4); MONOCYTES 7.9 % (2-11); NEUTROPHIL ABS# 3.46 10x3/uL (1.56-6.13); NEUTROPHILS 60.3 % (40-80); RBC 4.27 10x6/uL (4.00-5.40); WBC 5.7 10x3/uL (4.8-10.8)
[2020-12-20 14:25] LABS: PLATELET COUNT 276 10x3/uL (130-400)
[2020-12-20 14:47] LABS: ALBUMIN 3.7 g/dL (3.4-5.0); ALKALINE PHOSPHATASE 166 U/L (30-120); ALT (SGPT) 36 U/L (10-68); CALC OSMOLALITY 282 mosm/kg (275-300); CALCIUM 8.7 mg/dL (8.5-10.1); CARBON DIOXIDE 30.2 mmol/L (21.0-32.0); CHLORIDE - SERUM 105 mmol/L (98-107); CREATININE - SERUM 0.7 mg/dL (0.6-1.3); GLUCOSE 77 mg/dL (74-106); POTASSIUM - SERUM 4.7 mmol/L (3.5-5.1); PROTEIN - SERUM 6.7 g/dL (6.4-8.2); SODIUM 141 mmol/L (136-145); UREA NITROGEN 20 mg/dL (7-18); eGFR NON AFRICAN AMERICAN > 90 mL/min (90-120)
== END | disposition home or self-care (01) ==
LOC: D.LABREF 14:08
PROVIDERS: ATTEND Family Medicine
DX: G35 Multiple sclerosis (principal); J44.9 Chronic obstructive pulmonary disease, unspecified; I10 Essential (primary) hypertension; E87.6 Hypokalemia

== ENCOUNTER 2021-01-04 00:33 | Emergency (ER) | payer MEDICARE ==
[2021-01-04 00:50] VITALS: Ht 162.6 cm
[2021-01-04] MEDS ORDERED: HYDROCODON-ACET15 ML PO (01:01)
[2021-01-04] MEDS ORDERED: PERCOCET 10-321 EAC1 PO (02:11)
[2021-01-04 02:39] VITALS: BP 135/87
== END 2021-01-04 02:31 | disposition home or self-care (01) ==
LOC: D.ER 00:33
DX: M54.16 Radiculopathy, lumbar region (principal); I10 Essential (primary) hypertension

== ENCOUNTER 2021-01-09 21:04 | Emergency (ER) | payer MEDICARE ==
[~2021-01-09] VITALS: Ht 162.6 cm; Wt 63.6 kg
[~2021-01-09 21:04] MED LIST changes: +HYDROCODON-ACET15 ML PO
[2021-01-09 21:08] VITALS: BP 169/97; Ht 162.6 cm; Wt 63.6 kg
[2021-01-09] MEDS ORDERED: PREDNISONE20 MG PO (22:22)
== END 2021-01-09 22:42 | disposition home or self-care (01) ==
LOC: D.ER 21:04
DX: G35 Multiple sclerosis (principal); R53.1 Weakness; I10 Essential (primary) hypertension

== ENCOUNTER 2021-02-04 17:27 | Inpatient (IN) | payer MEDICARE ==
[~2021-02-04] VITALS: Ht 162.6 cm; Wt 69.9 kg
--- NOTE | 2021-02-04 17:15 | NUR ---
RECIEVED FROM [facility] TO ROOM 1119B.ORIENTED TO ROOM AND SURROUNDINGS.CL IN REACH.
[~2021-02-04 17:27] MED LIST changes: +PREDNISONE20 MG PO
--- NOTE | 2021-02-04 19:15 | NUR ---
BEDSIDE REPORT COMPLETE. RECEIVED PT LYING IN BED. ALERT AND ORIENTED X4. NO DISTRESS NOTED. NO IV OR OXYGEN. LEFT CHEST PORT NOT ACCESSED. DENIES ANY NEEDS. C/O BLE 3/10 ACHING DISCOMFORT. NORCO 10/325MG ADMINISTERED APPROX HOUR AGO BY DELMAR RN. CALL LIGHT AND PERSONAL ITEMS WITHIN REACH. HARPER ALARM ON. CPOC
[2021-02-04 20:16] VITALS: BP 143/92
[2021-02-04 21:59] VITALS: BP 143/92; BMI 26.5
--- NOTE | 2021-02-05 00:51 | NUR ---
PT LYING IN BED AWAKE. DENIES ANY NEEDS OR PAIN. NO DISTRESS NOTED. CALL LIGHT WITHIN REACH. HARPER ALARM ON
[2021-02-05] MEDS ORDERED: NORVASC5 MG PO (03:13)
[2021-02-05] MEDS ORDERED: OS-CAL500 MG PO (03:14)
[2021-02-05] MEDS ORDERED: VITAMIN B-121000 MCG IM (03:15)
[2021-02-05] MEDS ORDERED: CYCLOBENZAPRINE10 MG PO (03:22)
[2021-02-05] MEDS ORDERED: HYDROCODON-ACE1 EA10 PO (03:24)
[2021-02-05] MEDS ORDERED: PROBIOTIC BLEN1 EACH PO (03:36)
[2021-02-05] MEDS ORDERED: REGLAN10 MG PO (03:38)
[2021-02-05] MEDS ORDERED: MILK OF MAGNESI30 ML PO (03:38)
[2021-02-05] MEDS ORDERED: MULTI-DAY VITAM1 TAB PO (03:39)
[2021-02-05] MEDS ORDERED: MYCOSTATIN500000 UNI PO (03:41)
[2021-02-05] MEDS ORDERED: ZOFRAN ODT4 MG/UDTAB PO (03:41)
[2021-02-05] MEDS ORDERED: PROTONIX40 MG PO (03:42)
[2021-02-05] MEDS ORDERED: PHENERGAN25 M1 PO (03:43)
[2021-02-05] MEDS ORDERED: KLOR-CON M2020 MEQ PO (03:43)
[2021-02-05] MEDS ORDERED: VENTOLIN HFA [SP8 GM INH (03:44)
[2021-02-05] MEDS ORDERED: VITAMIN B-1100 M1 PO (03:44)
--- NOTE | 2021-02-05 04:06 | NUR ---
PT LYING IN BED SUPINE AWAKE. DENIES ANY NEEDS. CALL LIGHT WITHIN REACH. HARPER ALARM ON
--- NOTE | 2021-02-05 06:37 | NUR ---
PT SITTING UP IN BED WATCHING TV. DENIES ANY NEEDS OR PAIN. NO DISTRESS NOTED. CALL LIGHT WITHIN REACH. HARPER ALARM ON
[2021-02-05 07:13] LABS: BASOPHILS 0.4 % (0-2); EOSINOPHILS 0.1 % (0-7); LYMPHOCYTES 47.2 % (15-50); MCH 27.4 pg (26.0-34.0); MCHC 32.4 g/dL (31.0-37.0); MCV 84.6 fL (80.0-100.0); MEAN PLATELET VOLUME 9.2 fL (7.4-10.4); MONOCYTES 12.2 % (2-11); NEUTROPHILS 40.1 % (40-80); RBC 4.02 10x6/uL (4.00-5.40); RDW 15.3 % (11.5-14.5)
[2021-02-05 07:40] LABS: CALC OSMOLALITY 275 mosm/kg (275-300); CALCIUM 8.9 mg/dL (8.5-10.1); CARBON DIOXIDE 27.6 mmol/L (21.0-32.0); CHLORIDE - SERUM 103 mmol/L (98-107); CREATININE - SERUM 0.7 mg/dL (0.6-1.3); GLUCOSE 86 mg/dL (74-106); POTASSIUM - SERUM 4.4 mmol/L (3.5-5.1); SODIUM 137 mmol/L (136-145); UREA NITROGEN 22 mg/dL (7-18); eGFR NON AFRICAN AMERICAN > 90 mL/min (90-120)
[2021-02-05 07:53] LABS: PLATELET COUNT 154 10x3/uL (130-400)
[2021-02-05 07:57] VITALS: BP 144/88
--- NOTE | 2021-02-05 08:00 | NUR ---
SHIFT ASSMT COMPLETED.CL IN REACH.
--- NOTE | 2021-02-05 12:00 | NUR ---
EATING LUNCH.CL IN REACH.
--- NOTE | 2021-02-05 14:06 | NUR ---
CARE TEAM MEETING: PATIENT IS NEW TO UNIT AND WILL BE RA AT NEXT MEETING. WILL CONTINUE TO FOLLOW WITH PATIENT.
[2021-02-05 14:32] VITALS: Ht 162.6 cm; Wt 69.9 kg
--- NOTE | 2021-02-05 16:00 | NUR ---
RESTING QUIETLY IN BED
--- NOTE | 2021-02-05 19:03 | NUR ---
BEDSIDE REPORT COMPLETE. RECEIVED PT LYING IN BED ALERT AND ORIENTED X4. DENIES ANY NEEDS. C/O BACK AND BLE 5/10 DEEP ACHING PAIN. NO IV OR OXYGEN NOTED. LEFT CHEST PORT NOT ACCESSED. NO DISTRESS NOTED. CALL LIGHT AND WATER WITHIN REACH. HARPER ALARM ON. CPOC
[2021-02-05 19:55] VITALS: BP 125/78
--- NOTE | 2021-02-06 00:11 | NUR ---
PT HEAVY MACHINERY OPERATOR LIGHT, PT UP TO BR VIA WC WITH ASSISTANCE, VOIDED WITH NO DIFFICULTY, PT BACK TO BED, C/O PAIN, ADM PAIN MED PER MD ORDERS, SEE EMAR, PT DENIES FURTHER NEEDS AT THIS TIME
--- NOTE | 2021-02-06 01:34 | NUR ---
PT LYING IN BED AWAKE. DENIES ANY NEEDS. NO DISTRESS NOTED. CALL LIGHT WITHIN REACH. HARPER ALARM ON
--- NOTE | 2021-02-06 06:20 | NUR ---
PT LYING IN BED WATCHING TV. DENIES ANY NEEDS. NO DISTRESS NOTED. NO ACUTE CHANGES IN CONDITION THIS SHIFT. CALL LIGHT AND WATER WITHIN REACH. HARPER ALARM ON
[2021-02-06 07:24] VITALS: BP 134/85
--- NOTE | 2021-02-06 19:02 | NUR ---
BEDSIDE REPORT COMPLETE. RECEIVED PT SITTING UP IN BED. ALERT AND ORIENTED X4. C/O BLE AND LOWER BACK 5/10 DEEP BURNING DISCOMFORT. REQUESTS PAIN MEDICATION. NO DISTRESS NOTED. NO OTHER NEEDS VOICED. CALL LIGHT AND WATER WITHIN REACH. HARPER ALARM ON. CPOC
[2021-02-06 20:02] VITALS: BP 114/73
--- NOTE | 2021-02-07 00:38 | NUR ---
PT REQUESTS ASSIST TO RESTROOM, SUPERVISED PT WITH TRANSFERS AND PROPELLING SELF. PT HAS SOME BALANCE INSTABILITY AND MOVES TOO FAST CAUSING UNSTEADINESS. EDUCATED PT ON SAFE TRANSFERS. PT VERBALIZED UNDERSTANDING. DENIES ANY OTHER NEEDS. PT BACK IN BED WITH CALL LIGHT IN REACH. HARPER ALARM ON
--- NOTE | 2021-02-07 04:47 | NUR ---
PT LYING IN BED EYES CLOSED RESTING. HOB ELEVATED. RR EVEN AND UNLABORED. NO ACUTE CHANGES IN CONDITION THIS SHIFT. CALL LIGHT WITHIN REACH. HARPER ALARM ON
[2021-02-07 06:59] LABS: HEMATOCRIT 33.1 % (36.0-48.0); HEMOGLOBIN 10.8 g/dL (12-16); MCH 27.7 pg (26.0-34.0); MCHC 32.6 g/dL (31.0-37.0); MCV 84.9 fL (80.0-100.0); MEAN PLATELET VOLUME 9.1 fL (7.4-10.4); RDW 14.9 % (11.5-14.5); WBC 3.5 10x3/uL (4.8-10.8)
[2021-02-07 07:10] LABS: CALC OSMOLALITY 283 mosm/kg (275-300); CALCIUM 8.9 mg/dL (8.5-10.1); CHLORIDE - SERUM 106 mmol/L (98-107); CREATININE - SERUM 0.7 mg/dL (0.6-1.3); GLUCOSE 80 mg/dL (74-106); SODIUM 140 mmol/L (136-145); eGFR NON AFRICAN AMERICAN > 90 mL/min (90-120)
[2021-02-07 07:13] LABS: UREA NITROGEN 28 mg/dL (7-18)
[2021-02-07 07:21] LABS: PLATELET COUNT 197 10x3/uL (130-400)
--- NOTE | 2021-02-07 07:34 | NUR ---
RESTING IN BED, NO DISTRESS NOTED, EYES CLOSED, RESP UNLABORED, CONT TO MONITOR
[2021-02-07 11:05] LABS: LYMPHOCYTES 58 % (15-50); MONOCYTES 10 % (2-11); NEUTROPHILS 31 % (40-80)
[2021-02-07 11:06] LABS: ANISOCYTOSIS OCC; PLATELET ESTIMATE NORMAL
--- NOTE | 2021-02-07 19:43 | NUR ---
AWAKE AND ALERT. RESTING IN BED WITH RESPIRATIONS UNLABORED. HAS LEFT CHEST PORT THAT IS NOT ACCESSED. STATES SHE JUST HAD A PAIN PILL A LITTLE WHILE AGO AND SHE FEELS OK. NO DISTRESS NOTED. CALL LIGHT IN REACH.
[2021-02-07 20:00] VITALS: BP 111/71
--- NOTE | 2021-02-08 01:23 | NUR ---
RESTING WITH EYES CLOSED AND RESPIRATIONS UNLABORED. NO DISTRESS NOTED.
--- NOTE | 2021-02-08 05:27 | NUR ---
QUIET HOURS. NO ACUTE CHANGES IN CONDITION THIS SHIFT. RESTING IN BED WITH NO DISTRESS NOTED.
[2021-02-08 07:00] VITALS: BP 138/92
--- NOTE | 2021-02-08 08:00 | NUR ---
SHIFT ASSMT COMPLETED.
[2021-02-08 19:00] VITALS: BP 148/96
--- NOTE | 2021-02-08 19:18 | NUR ---
AWAKE AND ALERT. RESTING IN BED WITH RESPIRATIONS UNLABORED. STATES SHE HAD A GOOD DAY. NO DISTRESS NOTED. CALL LIGHT IN REACH.
--- NOTE | 2021-02-09 05:10 | NUR ---
QUIET HOURS. NO ACUTE CHANGES IN CONDITION THIS SHIFT. RESTING IN BED WITH NO DISTRESS NOTED.
[2021-02-09 07:00] VITALS: BP 144/91
--- NOTE | 2021-02-09 08:00 | NUR ---
SHIFT ASSMT COMPLETED.CL IN REACH.
--- NOTE | 2021-02-09 12:00 | NUR ---
SITTING ON SIDE OF BED EATING LUNCH.
--- NOTE | 2021-02-09 19:32 | NUR ---
RESTING IN BED, NO DISTRESS NOTED, ALERT AND O, CONT TO MONITOR SAFETY
[2021-02-09 19:51] VITALS: BP 151/100
--- NOTE | 2021-02-10 06:00 | NUR ---
PT C/O LOOSE STOOLS THIS AM, WILL UPDATE MD ON ROUNDS
[2021-02-10 07:00] VITALS: BP 137/91
[2021-02-10 07:08] LABS: BASOPHILS 0.2 % (0-2); EOSINOPHILS 0 % (0-7); HEMOGLOBIN 11.5 g/dL (12-16); LYMPHOCYTES 32.1 % (15-50); MCH 27.3 pg (26.0-34.0); MCV 85.4 fL (80.0-100.0); MEAN PLATELET VOLUME 9.1 fL (7.4-10.4); MONOCYTES 7.2 % (2-11); NEUTROPHILS 60.5 % (40-80); RBC 4.22 10x6/uL (4.00-5.40); RDW 14.8 % (11.5-14.5); WBC 4.9 10x3/uL (4.8-10.8)
[2021-02-10 07:15] LABS: PLATELET COUNT 255 10x3/uL (130-400)
[2021-02-10 08:51] LABS: ANION GAP 14.9 mmol/L (8-16); CALCIUM 8.8 mg/dL (8.5-10.1); CARBON DIOXIDE 20.8 mmol/L (21.0-32.0); CREATININE - SERUM 0.9 mg/dL (0.6-1.3); POTASSIUM - SERUM 4.7 mmol/L (3.5-5.1)
--- NOTE | 2021-02-10 15:00 | NUR ---
LAYING IN BED WATCHING TV. PAIN MEDS GIVEN ORDERED AND REQUESTED. C/O CHRONIC LEG PAIN.
--- NOTE | 2021-02-10 19:00 | NUR ---
BEDSIDE REPORT COMPLETE. RECEIVED PT SITTING UP ON SIDE OF BED. ALERT AND ORIENTED X4. DENIES ANY NEEDS OR PAIN. NO IV OR OXYGEN. LEFT CHEST INFUSAPORT NOT ACCESSED. NO DISTRESS NOTED. CALL LIGHT AND PERSONAL ITEMS WITHIN REACH. BED/CHAIR ALARM WAIVER SIGNED IN CHART. CPOC
[2021-02-10 21:59] VITALS: BP 109/64
--- NOTE | 2021-02-11 00:40 | NUR ---
PT LYING IN BED ON LEFT SIDE EYES CLOSED RESTING. RR EVEN AND UNLABORED. CALL LIGHT WITHIN REACH
--- NOTE | 2021-02-11 04:54 | NUR ---
PT CALLED REQUESTING PAIN MEDICATION LOWER BACK AND BLE DEEP BURNING ACHING 03/22 PAIN. ADMININSTERED NORCO PER ORDERS. PT DENIES ANY OTHER NEEDS. NO ACUTE CHANGES IN CONDITION THIS SHIFT. CALL LIGHT AND WATER WITHIN REACH.
[2021-02-11 07:41] VITALS: BP 137/85
--- NOTE | 2021-02-11 08:53 | NUR ---
LAYING IN BED WATCHING TV. HAS BEEN UP THIS MORNING DOING THERAPY. ASKS FOR PAIN MEDS ABOUT EVERY 4 HOURS. C/O CHRONIC BLE PAIN DUE TO MS. CALL LIGHT IN REACH
--- NOTE | 2021-02-11 13:39 | NUR ---
RESTING QUIETLY IN BED.DENIES NEEDS OR REQUESTS OTHER THAN PAIN MEDS Q4 HRS. CALL LIGHT IN REACH.
--- NOTE | 2021-02-11 15:03 | NUR ---
Nutrition Re-Assessment Diet: Regular PO intake: ~83% average x last 9 meals. She ate 100% of breakfast this AM. States that her appetite is "pretty good." Last BM: 02/09/21 x 5 (loose) Wt: 154# (02/05/21) Meds noted: imodium (PRN), kdur, probiotics, reglan Labs reviewed Estimated nutrition needs: 1500-1800cal (27-33kcal/kg IBW), 55-66gms protein (1-1.2), 1750-2100mL fluid (or per MD) Nutrition diagnosis: Potential for inadequate energy intake r/t PMHx dysphagia, h/o gastric sleeve, and now with diarrhea. Nutrition goals: -PO intake =/>75% meals -Meet fluid needs -Stable weight DHS Recommendations/Interventions: -Recommend continue current diet. Will continue to honor food preferences. -RD will follow-up within 7 days.
--- NOTE | 2021-02-11 15:57 | NUR ---
PATIIENTS PCP IS DR. ONEIL. PATIENT HAS DME NEEDED AT THIS TIME. DISCHARGE PLANS ARE FOR HER TO RETURN TO HER HOME WITH FAMILY. WILL CONTINUE TO FOLLOW WITH PATIENT.
[2021-02-11 21:31] VITALS: BP 123/66
--- NOTE | 2021-02-12 02:19 | NUR ---
PT LYING IN BED ON LEFT SIDE EYES CLOSED RESTING. RR EVEN AND UNLABORED. CALL LIGHT WITHIN REACH
--- NOTE | 2021-02-12 05:47 | NUR ---
PT LYING IN BED ON RIGHT SIDE EYES CLOSED RESTING. NO DISTRESS NOTED. NO ACUTE CHANGES IN CONDITION THIS SHIFT. CALL LIGHT WITHIN REACH
[2021-02-12 07:24] VITALS: BP 125/83
[2021-02-12 07:28] LABS: BASOPHILS 0.4 % (0-2); EOSINOPHILS 0 % (0-7); HEMATOCRIT 36.7 % (36.0-48.0); HEMOGLOBIN 11.7 g/dL (12-16); LYMPHOCYTES 37.9 % (15-50); MCH 27.4 pg (26.0-34.0); MCHC 31.9 g/dL (31.0-37.0); MCV 85.8 fL (80.0-100.0); MEAN PLATELET VOLUME 9.4 fL (7.4-10.4); MONOCYTES 6.1 % (2-11); NEUTROPHILS 55.6 % (40-80); PLATELET COUNT 299 10x3/uL (130-400); RBC 4.27 10x6/uL (4.00-5.40); RDW 14.8 % (11.5-14.5); WBC 5.9 10x3/uL (4.8-10.8)
[2021-02-12 07:39] LABS: ANION GAP 16.9 mmol/L (8-16); CALCIUM 8.9 mg/dL (8.5-10.1); CARBON DIOXIDE 19.3 mmol/L (21.0-32.0); POTASSIUM - SERUM 4.2 mmol/L (3.5-5.1)
--- NOTE | 2021-02-12 08:00 | NUR ---
PATIENT IS ALERT/ORIENT. CALL LIGHT WITHIN REACH. VOICES NO NEEDS AT THIS TIME. WILL CONTINU WITH PLAN OF CARE
--- NOTE | 2021-02-12 10:10 | NUR ---
PATIENT IS IN REHAB ROOM. WORKING WITH PHYSICAL THERAPIST. DENIES ANY PAIN/DISC AT THIS TIME.
--- NOTE | 2021-02-12 15:57 | NUR ---
CARE TEAM MEETING: PATIENT IS DOING WELL IN THERAPY. HER TENATIVE DC DATE IS 02/18/21. WILL CONTINUE TO FOLLOW WITH PATIENT.
--- NOTE | 2021-02-12 18:08 | NUR ---
PATEINT SITTING UP IN BED TO EAT SUPPER. VOICES NO NEEDS AT THIS TIME. CALL LIGHT WITHIN REACH.
--- NOTE | 2021-02-12 18:55 | NUR ---
BEDSIDE REPORT COMPLETE. RECEIVED PT LYING IN BED AWAKE. ALERT AND ORIENTED X4. DENIES ANY NEEDS OR PAIN. NO DISTRESS NOTED. CALL LIGHT AND WATER WITHIN REACH. ALARM WAIVER SIGNED. CPOC
[2021-02-12 20:17] VITALS: BP 115/72
--- NOTE | 2021-02-13 03:02 | NUR ---
PT LYING IN BED ON RIGHT SIDE EYES CLOSED RESTING. RR EVEN AND UNLABORED.
[2021-02-13 08:07] VITALS: BP 136/84
--- NOTE | 2021-02-13 12:54 | NUR ---
SHE IS IN HER ROOM, JUST HAD A SHOWER. NO SKIN ISSUES. USING THE WHEELCHAIR TO GO INTO THE BATHROOM.THE CALL LIGHT IS WITHIN REACH.
--- NOTE | 2021-02-13 18:50 | NUR ---
BEDSIDE REPORT COMPLETE. RECEIVED PT SITTING UP IN BED. ALERT AND ORIENTED X4. NO DISTRESS NOTED. NO IV OR OXYGEN. C/O 10 BLE AND LOWER BACK CHRONIC PAIN. DEEP RADIATING ACHE. REQUESTS PAIN MEDICATION. INFORMED PT STILL TOO EARLY FOR MEDICATION. NO OTHER NEEDS VOICED. CALL LIGHT AND WATER WITHIN REACH. BED/CHAIR ALARM WAIVER ON FILE. CPOC
--- NOTE | 2021-02-13 19:44 | RHP ---
PATIENT: RAFAEL PETTY MEDICAL RECORD: [id number] ACCOUNT: [id number] LOCATION:[facility].1119 : [birth year] ADMISSION DATE: 02/04/21 REHABILITATION HISTORY AND PHYSICAL EXAMINATION POST ADMISSION PHYSICIAN EXAMINATION POST ADMISSION PHYSICAL EXAMINATION AND HISTORY AND PHYSICAL ADMITTING DIAGNOSIS: Multiple sclerosis. HISTORY OF PRESENT ILLNESS: The patient is a 45-year-old female patient who presents to the inpatient rehab secondary to MS. She is admitted at [facility] on 02/01/2021 due to worsening weakness and irretractable headache following a lumbar puncture. Interventional radiology did perform a blood patch on 02/02/2021. Her headache was relieved to this, but she did complain of extremity pain. 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 She states the paralysis was due to MS and had to reside at [facility]. The patient reports that she now lives in her home with her 2 grown children. She has been ambulating prior to this hospital stay independent at home with a rolling walker. The patient reports that she is very weak. She needs to regain her strength. She states that she has a bench in her shower at home and ramps to access her house. She reports that her adult children do help her cook meals. The patient's electrolytes have been adjusted. She has reported that pain levels of 8 up in her back and legs and required pain management. Physical therapy reports that she requires cues with assistance and is a fall risk. PT also reports that her dynamic standing this morning that she uses a step-to gait pattern. The patient has poor foot clearance bilaterally dragging her toes. She will require gait training, transfer training and use of assistance devices. She will also require OT for ADLs, training, endurance and development of home exercise program. Barriers to her discharge at this time include self-care deficits, adequate pain control, and safety precautions. COMORBIDITIES: Include DVT, deconditioning, post-lumbar puncture, spinal headache, and blood patch. PAST MEDICAL HISTORY: Significant for MS, hypertension, neuropathy, chronic pain. PAST SURGICAL HISTORY: Includes gastric bypass, , knee replacement, PEG placement, gastric sleeve, esophageal duodenoscopy for dilatation. ALLERGIES: KETOROLAC AND METOPROLOL. CURRENT MEDICATIONS: Include Floranex 1 cap daily. She is on thiamine B1 tab, potassium 20 mEq daily, multivitamin daily. She is on B12 injections, calcium carbonate 500 mg daily, albuterol 2.5 mg daily, Protonix 40 mg daily, Carafate 1 gram q.a.c. and at bedtime, Requip 0.5 mg t.i.d., Lyrica 150 mg t.i.d., nystatin 5 mg q.i.d., metoclopramide 10 mg q.a.c. and at bedtime, Elavil 50 mg at bedtime, Phenergan 25 mg q.6 hours, Zofran 4 mg q.8 hours, milk of mag daily, Flexeril 10 mg t.i.d., amlodipine 5 mg daily, and Medina 10/325 one tab q.4 hours p.r.n. HABITS: No alcohol and tobacco use. HISTORY AND PHYSICAL [id number] RAFAEL PETTY FAMILY HISTORY: Noncontributory. SOCIAL HISTORY: The patient hopes to return back home and get back to her prior level of functioning. REVIEW OF SYSTEMS: GENERAL: She does complain of weakness and fatigue. HEENT: Denies cold, cough, and congestion. CARDIOVASCULAR: Denies any chest pain. PHYSICAL EXAMINATION: VITAL SIGNS: Stable, afebrile. GENERAL: A well-developed female, in no acute distress upon exam. HEENT: Normocephalic and atraumatic. Mucosa moist. NECK: Supple. No lymphadenopathy. LUNGS: Clear at this time. No wheezing or rales. HEART: Regular rate and rhythm. No murmurs, rubs or gallops. ABDOMEN: Soft, benign, nondistended. Positive bowel sounds times 4. EXTREMITIES: No clubbing, cyanosis or edema. NEUROLOGIC: She does have diffuse weakness. LABORATORY DATA: Her white count is 3000, H&H of 11 and 34, and platelet count is 154. Her sodium is 137, potassium 4.4, BUN and creatinine of 22 and 0.7. Her blood sugar was noted to be 86. ASSESSMENT: This is a 45-year-old female patient admitted to rehab with a working diagnosis of multiple sclerosis. The patient has potential to make improvement. We instituted the following multidisciplinary therapies including, but not limited to physical, occupational, respiratory, nutritional services, prosthetics and orthotics. Given her complex medical condition and risks for more complications, rehabilitation services cannot be provided at a low level of care such as skilled nurse facility. PLAN: 1. Admit to [facility] for inpatient therapy to include the following disciplines; A. Physical therapy and improve gait, all transfer skills and bed mobility to a modified independent level. B. Occuptational therapy to improve activites of daily living. C. Case management to help with discharge planning and placement options. D. Nutrition to assist with nutritional needs. E. Rehabilitation nursing to assist in monitoring the patient's underlying medical conditions and to assist with any type of bowel or bladder management. 2. The patient's current medication and medical care will be continued. 3. Placed on standard fall precautions. 4. The patient's estimated length of stay is approximately 7-10 days. 5. The patient's current medications will be continued and I will see again in the a.m. Discussed her case today with care team. TRANSINT:[id number] Voice Confirmation ID: [id number] DOCUMENT ID: [id number] YAYA notes whether there has been none or any medical/functional change since admission: - No change since preadmission screen. HISTORY AND PHYSICAL [id number] RAFAEL PETTY attests patient continues to be appropriate for IRF: - Continues to be appropriate. MEGAN MAN MD at 1944 CC: [id number] DICTATION DATE: 02/05/21 0852 [employer] COUNTER PERSON: 02/05/21 1753 ADM IN [facility] [address] [place] [address]
[2021-02-13 19:57] VITALS: BP 118/84
--- NOTE | 2021-02-14 00:13 | NUR ---
PT LYING IN BED ON RIGHT SIDE EYES CLOSED RESTING. RR EVEN AND UNLABORED. CALL LIGHT WITHIN REACH
--- NOTE | 2021-02-14 01:52 | NUR ---
LYING SUPINE WITH EYES CLOSED. CALL LIGHT IN REACH
[2021-02-14 07:17] LABS: BASOPHILS 0.2 % (0-2); EOSINOPHILS 0 % (0-7); HEMATOCRIT 33.6 % (36.0-48.0); LYMPHOCYTES 37.8 % (15-50); MCH 27.4 pg (26.0-34.0); MCHC 32.8 g/dL (31.0-37.0); MCV 83.4 fL (80.0-100.0); MEAN PLATELET VOLUME 8.4 fL (7.4-10.4); MONOCYTES 6.2 % (2-11); NEUTROPHILS 55.8 % (40-80); RBC 4.03 10x6/uL (4.00-5.40); RDW 14.3 % (11.5-14.5)
[2021-02-14 07:23] LABS: PLATELET COUNT 236 10x3/uL (130-400)
[2021-02-14 07:32] LABS: CALC OSMOLALITY 282 mosm/kg (275-300); CALCIUM 8.5 mg/dL (8.5-10.1); CARBON DIOXIDE 20.2 mmol/L (21.0-32.0); CHLORIDE - SERUM 108 mmol/L (98-107); CREATININE - SERUM 0.8 mg/dL (0.6-1.3); GLUCOSE 86 mg/dL (74-106); POTASSIUM - SERUM 4.2 mmol/L (3.5-5.1); SODIUM 139 mmol/L (136-145); UREA NITROGEN 29 mg/dL (7-18); eGFR NON AFRICAN AMERICAN 82 mL/min (90-120)
--- NOTE | 2021-02-14 07:39 | NUR ---
SHE IS AWAKE, LYING IN BED. WANTS PAIN MED WHEN IT'S DUE. NO NEW ISSUES. THE CALL LIGHT IS WITHIN REACH.
[2021-02-14 08:57] VITALS: BP 136/95
--- NOTE | 2021-02-14 19:30 | NUR ---
AWAKE AND ALERT. RESTING IN BED WITH RESPIRATIONS UNLABORED. NO ACUTE DISTRESS NOTED. CALL LIGHT IN REACH.
--- NOTE | 2021-02-15 05:21 | NUR ---
QUIET HOURS. NO ACUTE CHANGES IN CONDITION THIS SHIFT. RESTING IN BED WITH NO DISTRESS NOTED.
[2021-02-15 07:00] VITALS: BP 145/89
[2021-02-15 19:00] VITALS: BP 125/73
--- NOTE | 2021-02-15 19:45 | NUR ---
RESTING IN BED, NO DISTRESS NOTED, C/O PAIN, WILL MEDICATE AND PROVIDE PM MEDS
[2021-02-16 07:00] VITALS: BP 135/83
--- NOTE | 2021-02-16 09:25 | NUR ---
RESTING QUIETLY IN BED. STATES SHE DID NOT SLEEP WELL LAST PM. DENIES SOB. ASKS FOR PAIN MEDS Q4HRS. STATES HER LEGS HURT FROM HAVING MS. CALL LIGHT IN REACH.
[2021-02-16 21:13] VITALS: BP 130/94
[2021-02-17 06:04] LABS: BASOPHILS 0.2 % (0-2); CALC OSMOLALITY 288 mosm/kg (275-300); CALCIUM 8.5 mg/dL (8.5-10.1); CARBON DIOXIDE 22.9 mmol/L (21.0-32.0); CHLORIDE - SERUM 110 mmol/L (98-107); CREATININE - SERUM 0.7 mg/dL (0.6-1.3); EOSINOPHILS 0 % (0-7); GLUCOSE 100 mg/dL (74-106); HEMATOCRIT 32.5 % (36.0-48.0); HEMOGLOBIN 10.4 g/dL (12-16); MCH 27.1 pg (26.0-34.0); MCV 84.6 fL (80.0-100.0); MEAN PLATELET VOLUME 8.4 fL (7.4-10.4); MONOCYTES 8.7 % (2-11); NEUTROPHILS 55.1 % (40-80); PLATELET COUNT 221 10x3/uL (130-400); RBC 3.85 10x6/uL (4.00-5.40); RDW 14.6 % (11.5-14.5); SODIUM 139 mmol/L (136-145); UREA NITROGEN 43 mg/dL (7-18); WBC 4.1 10x3/uL (4.8-10.8); eGFR NON AFRICAN AMERICAN > 90 mL/min (90-120)
[2021-02-17 07:26] VITALS: BP 137/90
--- NOTE | 2021-02-17 10:11 | NUR ---
PATIENT IS DISCHARGING HOME IN THE AM WITH FAMILY. [facility] WILL RESUME THERAPY AT HOME. NO NEW DME NEEDED AT THIS TIME. DR. ONEIL 02/19/21 @ 3:00. AKIL SIGNED , IMM SERVED AND EXPLIANED ONE GIVEN TO PATIENT AND ONE FILED IN CHART. NO COMPARE DATA REVIEWED PER PATIENT REQUEST. DISCHARGE INSTRUCTIONS FAXED TO PCP, HOME HEALTH AND REVIEWED WITH PATIENT. WILL CONTINUE TO FOLLOW WITH PATIENT. UNTIL DISCHARGE IN AM.
--- NOTE | 2021-02-17 13:08 | NUR ---
SITTING UP IN BED IN HER ROOM WATCHING TV AND TALKING TO THERAPIST. ASKES Q4 HRS FOR PAIN MEDS. STILL C/O BILAT LEG PAIN AND WEAKNESS. DENIES INCREASED PAIN OR ANY SOB. YADI IN LOWEST POSITION. CALL LIGHT IN REACH
--- NOTE | 2021-02-17 20:11 | NUR ---
AWAKE AND ALERT. RESTING IN BED WITH NO DISTRESS NOTED. CALL LIGHT IN REACH.
[2021-02-17 20:30] VITALS: BP 131/54
--- NOTE | 2021-02-18 06:31 | NUR ---
QUEIT HOURS. NO ACUTE CHANGES IN CONDITION THIS SHIFT. RESTING IN BED WITH NO DISTRESS NOTED.
--- NOTE | 2021-02-18 08:00 | NUR ---
SHIFT ASSMT COMPLETED.PLAN TO DISCHARGE HOME TODAY.
[2021-02-18 08:40] VITALS: BP 157/98
[2021-02-18] MEDS ORDERED: AMITRIPTYLINE H50 MG PO (09:47)
[2021-02-18] MEDS ORDERED: HYDROCODON-ACE1 EA10 PO (09:48)
--- NOTE | 2021-02-18 11:30 | NUR ---
REVIEWED HOME CARE,MEDICATIONS AND F/U APPTS.DISCHARGED IN CARE OF FAMILY.STABLE CONDITION.
== END 2021-02-18 11:30 | disposition home health service (06) | DRG 59 ==
LOC: D.REHAB 17:27
PROVIDERS: ADMIT Emergency Medicine; ATTEND Emergency Medicine
DX: G35 Multiple sclerosis (principal); I82.409 Acute embolism and thrombosis of unspecified deep veins of unspecified lower extremity; I10 Essential (primary) hypertension; G89.29 Other chronic pain; G62.9 Polyneuropathy, unspecified; G97.1 Other reaction to spinal and lumbar puncture; M62.81 Muscle weakness (generalized)